=== PATIENT | female | born 1940 | race American Indian/Alaskan Native ===

== ENCOUNTER 2017-07-29 01:25 | Inpatient (IN) | payer MEDICARE, OTHER ==
--- NOTE | 2017-07-29 02:33 | ED PDOC ---
Arrival/HPI - General Chief Complaint: Fever Time Seen by Provider: 07/29/17 02:02 Historian: Patient, [facility] Caveat: Dementia - History of Present Illness Narrative History of Present Illness (Text): 77F, hx of difficulty walking, cognitive decline, communication deficit, non- ambulatory, now sent for fever work-up as persistent fevers, as she has had 102 temp, positive flu, tamiflu started per nurse familia. 07/29/17 02:31 07/29/17 02:51 Past Medical History - Provider Review Nursing Documentation Reviewed: Yes - Travel History Have you recently traveled outside [place] w/in the past 3 mons?: No - Cardiac Hx Cardiac Disorders: Yes Hx Hypertension: Yes - Pulmonary Hx Respiratory Disorders: No - Neurological Hx Neurological Disorder: Yes Hx Dementia: Yes - Renal Hx Renal Disorder: No - Endocrine/Metabolic Hx Endocrine Disorders: No - Hematological/Oncological Hx Blood Disorders: No - Integumentary Hx Dermatological Disorder: No - Musculoskeletal/Rheumatological Hx Musculoskeletal Disorders: Yes Hx Falls: Yes Hx Unsteady Gait: Yes - Gastrointestinal Hx Gastrointestinal Disorders: No - Genitourinary/Gynecological Hx Genitourinary Disorders: No - Psychiatric Hx Psychophysiologic Disorder: No Hx Substance Use: No - Surgical History Hx Joint Replacement: Yes (R hip) Family/Social History - Physician Review Nursing Documentation Reviewed: Yes Family/Social History: Unknown Family HX Smoking Status: Unknown If Ever Smoked Hx Alcohol Use: No Hx Substance Use: No Allergies/Home Meds Allergies/Adverse Reactions: Allergies No Known Allergies Allergy (Unverified 07/29/17 02:26) Home Medications: Home Meds Medication Instructions Recorded Confirmed Acetaminophen [Athenol] 2 tab PO Q6 PRN 07/29/17 07/29/17 Acetaminophen [Non-Aspirin Pain 2 tab PO Q6 PRN 07/29/17 07/29/17 Relief] Ascorbic Acid [Vitamin C] 500 mg PO DAILY 07/29/17 07/29/17 Aspirin [Lo-Dose Aspirin EC] 81 mg PO DAILY 07/29/17 07/29/17 Atorvastatin [Lipitor] 20 mg PO DAILY 07/29/17 07/29/17 Calcium Carbonate/Vitamin D3 1 each PO DAILY 07/29/17 07/29/17 [Calcium 500 + Vit D 200 Caplet] Celecoxib [CeleBREX] 200 mg PO DAILY 07/29/17 07/29/17 Cyanocobalamin (Vitamin B-12) 5,000 mcg PO DAILY 07/29/17 07/29/17 [Vitamin B12] Docusate [Colace] 2 tab PO HS 07/29/17 07/29/17 Famotidine [Pepcid] 20 mg PO BID 07/29/17 07/29/17 Lactulose [Generlac] 20 gm PO DAILY PRN 07/29/17 07/29/17 diltiaZEM [Cardizem] 60 mg PO Q12 07/29/17 07/29/17 Review of Systems - Physician Review All systems were reviewed & negative as marked: Yes - Review of Systems Systems not reviewed;Unavailable: Dementia Constitutional: Fevers Eyes: Normal ENT: Normal Respiratory: Normal Cardiovascular: Normal Physical Exam Vital Signs Reviewed: Yes Vital Signs Temp Pulse Resp BP Pulse Ox 07/29/17 01:30 97.8 F 99 H 18 112/63 96 Temperature: Afebrile Blood Pressure: Normal Pulse: Regular Respiratory Rate: Normal Appearance: Positive for: Well-Appearing, Non-Toxic, Comfortable Pain Distress: None Mental Status: Positive for: other (communication deficit) - Systems Exam Head: Present: Atraumatic, Normocephalic Pupils: Present: PERRL Extroacular Muscles: Present: EOMI Conjunctiva: Present: Normal Ears: Present: Normal Mouth: Present: Moist Mucous Membranes Pharnyx: Present: Normal Nose (External): Present: Atraumatic Nose (Internal): Present: Normal Inspection Neck: Present: Normal Range of Motion Respiratory/Chest: Present: Clear to Auscultation, Good Air Exchange Cardiovascular: Present: Regular Rate and Rhythm Abdomen: No: Tenderness, Distention, Normal Bowel Sounds, Peritoneal Signs, Rebound, Guarding, McBurney's Point Tender, Rovsing's Sign Present, Hernias, Feeding Tubes, Ostomy Tubes, Mass/Organomegaly, Scars, Other Upper Extremity: Present: Normal Inspection Lower Extremity: Present: Normal Inspection Neurological: Present: Motor Func Grossly Intact Skin: Present: Warm, Normal Color Psychiatric: Present: Alert, Other (dementia) Medical Decision Making ED Course and Treatment: 07/29/17 05:05 77F, hx of difficulty walking, cognitive decline, communication deficit, non- ambulatory, now sent for fever work-up as persistent fevers, as she has had 102 temp, positive flu, tamiflu started per nurse familia. d/w with Dr. Marie for pt sent by [facility] for persistent fevers, flu positive. will admit for observation. - Lab Interpretations Lab Results: 07/29/17 02:27 07/29/17 02: Lab Results 07/29/17 03:30: Urine Color yellow, Urine Appearance Clear, Urine pH 6.0, Ur Specific [place] >= 1.030, Urine Protein 100 H, Urine Glucose (UA) Negative, Urine Ketones Negative, Urine Blood Small H, Urine Nitrate Negative, Urine Bilirubin Negative, Urine Urobilinogen 1.0 H, Ur Leukocyte Esterase Negative, Urine RBC 15 - 20, Urine WBC 2 - 5, Ur Epithelial Cells 4 - 5, Urine Bacteria Few 07/29/17 02:: Phenytoin < 3 L 07/29/17 02:: Sodium 142, Chloride 106, Potassium 3.9, Carbon Dioxide 29, Anion Gap 11, BUN 24 H, Creatinine 0.9, Est GFR ( Amer) > 60, Est GFR ( Non-Af Amer) > 60, Random Glucose 187 H, Calcium 9.4, Phosphorus 3.3, Magnesium 2.0, Total Bilirubin 0.7, AST 102 H, ALT 104 H, Alkaline Phosphatase 66, Troponin I 0.03, Total Protein 6.4, Albumin 3.2, Globulin 3.2, Albumin/Globulin Ratio 1.0 L 07/29/17 02:: pO2 71 H, VBG pH 7.44 H, VBG pCO2 46.0, VBG HCO3 31.2 H, VBG Total CO2 32.6 H, VBG O2 Sat (Calc) 97.1 H, VBG Base Excess 6.1 H, VBG Potassium 4.0, Sodium 139.0, Chloride 108.0 H, Glucose 196 H, Lactate 1.0, FiO2 21.0, Venous Blood Potassium 4.0 07/29/17:: PT 16.1 H, INR 1.39 H, APTT 30.9 07/29/17 02:27: WBC 7.0, RBC 3.64, Hgb 10.9 L, Hct 33.1 L, MCV 90.9, MCH 29.9, MCHC 32.9, RDW 13.7, Plt Count 69 L, MPV 12.0 H, Gran % 66.0, Lymph % (Auto) 20.7 L, [place] % (Auto) 13.2 H, Eos % (Auto) 0.0 L, Baso % (Auto) 0.1, Gran # 4.64 , Lymph # (Auto) 1.5, [place] # (Auto) 0.9 H, Eos # (Auto) 0.0, Baso # (Auto) 0.01 07/29/17 02:22: Influenza Typ A,B (EIA) Pos for influenza a H I have reviewed the lab results: Yes - RAD Interpretation Radiology Orders: 07/29/17 02:40 CHEST ONE VIEW [RAD] Stat Cold Working Inspector: ED Physician (CXR mild vascular markings) - EKG Interpretation Interpreted by ED Physician: Yes (NSR) Type: 12 lead EKG - Medication Orders Current Medication Orders: Lactated Ringer's 1,000 ml/ IV (SUPPLIES) 1,000 mls @ 60 mls/hr IV ONCE ONE Stop: 07/29/17 19:05 Last Admin: 07/29/17 03:07 Dose: 60 mls/hr eMAR Start Stop Document 07/29/17 03:07 SS (Rec: 07/29/17 03:07 SS [facility] [id number]) Intravenous Solution Start Date 07/29/17 Start Time 03:07 Discontinued Medications Oseltamivir Phosphate (Tamiflu Cap) 75 mg PO STAT STA PRN Reason: Protocol Stop: 07/29/17 03:52 Last Admin: 07/29/17 04:38 Dose: 75 mg Disposition/Present on Arrival - Present on Arrival Any Indicators Present on Arrival: No History of DVT/PE: No History of Uncontrolled Diabetes: No Urinary Catheter: No History of Decub. Ulcer: No History Surgical Site Infection Following: None - Disposition Have Diagnosis and Disposition been Completed?: Yes Diagnosis: Influenza Disposition: HOSPITALIZED Disposition Time: 05:06 Isolation: Airborne Patient Plan: Admission Patient Problems: Current Active Problems Problem Status Onset Influenza Acute Condition: IMPROVED Referrals: Davon Marie MD [Primary Care Provider] - Follow up with primary Forms: everbill (Persian)
[2017-07-29 02:57] LABS: VENOUS BLOOD GAS BASE EXCESS 6.1 mmol/L (0.0-2.0); VENOUS BLOOD GAS PO2 71 mm/Hg (30-55); VENOUS BLOOD PH 7.44 (7.32-7.43)
[2017-07-29 03:00] LABS: HEMOGLOBIN 10.9 g/dL (12.0-16.0); MEAN CELL VOLUME 90.9 fl (80.0-105.0); MEAN CORPUSCULAR HEMOGLOBIN 29.9 pg (25.0-35.0); MEAN CORPUSCULAR HGB CONC 32.9 g/dl (31.0-37.0); RBC 3.64 10^6/uL (3.5-6.1); RED CELL DISTRIBUTION WIDTH 13.7 % (11.5-14.5)
[2017-07-29 03:01] LABS: BASO # 0.01 K/mm3 (0.0-2.0); BASO % 0.1 % (0.0-3.0); GRAN # 4.64 (1.4-6.5); LYMPH # 1.5 (1.2-3.4); LYMPH % 20.7 % (22.0-35.0); MONO # 0.9 (0.1-0.6); MONO % 13.2 % (1.0-6.0)
[2017-07-29 03:10] LABS: ALBUMIN 3.2 g/dL (3.0-4.8); ALT/SGPT 104 U/L (7-56); AST/SGOT 102 U/L (14-36); BLOOD UREA NITROGEN 24 mg/dL (7-21); CALCIUM 9.4 mg/dL (8.4-10.5); GFR AFRICAN-AMERICAN > 60; GFR NON-AFRICAN AMERICAN > 60; INR 1.39 (0.93-1.08); PARTIAL THROMBOPLASTIN TIME 30.9 Seconds (25.1-36.5); PROTHROMBIN TIME 16.1 SECONDS (9.4-12.5)
[2017-07-29 03:17] LABS: TROPONIN I 0.03 ng/mL
[2017-07-29 03:47] LABS: URINE BILIRUBIN NEGATIVE (NEGATIVE); URINE BLOOD SMALL (NEGATIVE); URINE GLUCOSE (UA) NEGATIVE (NEGATIVE); URINE LEUKOCYTE ESTERASE NEGATIVE Leu/uL (NEGATIVE); URINE NITRATE NEGATIVE (NEGATIVE); URINE PROTEIN 100 mg/dL (<30 mg/dL)
[2017-07-29 03:54] LABS: URINE APPEARANCE CLEAR (CLEAR)
[2017-07-29 03:59] LABS: URINE BACTERIA FEW (NEG); URINE RBC 15 - 20 /hpf (0-2)
--- NOTE | 2017-07-29 05:42 | RAD ---
EXAM: XR Chest, 1 View CLINICAL HISTORY: 77 years old, female; Pain; Chest pain; Additional info: 77f, fever work-up TECHNIQUE: Frontal view of the chest. COMPARISON: No relevant prior studies available. FINDINGS: Limitations: Rotation - mild. Lungs: No consolidation. Pleural space: No definite pleural effusion. No definite pneumothorax. Heart: No cardiomegaly. Mediastinum: Unremarkable. Bones/joints: No acute fracture. Soft tissues: Apparent skin folds overlying RIGHT hemithorax. IMPRESSION: 1. No definite acute cardiopulmonary disease. 2. Incidental/non-acute findings are described above.
--- NOTE | 2017-07-29 16:41 | CARD ---
APPROVED REPORT EKG Measurement Heart [id number] <Conclusion> Normal sinus rhythm Inferior infarct, age undetermined Abnormal ECG
--- NOTE | 2017-07-30 02:14 | HP ---
HISTORY OF PRESENT ILLNESS: Patient is 77-year-old who is a resident of [facility]. She has been having high-grade fever for 2 days. She was positive for flu. She has been started on Tamiflu, but according to the nurse, she was increasingly lethargic, is having upper respiratory symptoms and her fever was not breaking. So, she had 101 temperature in the middle of night. I directed them to bring her to emergency room. Patient has been having fever for the last 2 to 3 days, runny, stuffy nose with mild cough and congestion. There is no history of nausea or vomiting. No abdominal pain. No rectal bleeding, no hemoptysis, no hematemesis. PAST MEDICAL HISTORY: Significant for: 1. Dementia. 2. History of unstable gait and disability walking. States she recently had a fall and she has right hip fracture. For that she had open reduction internal fixation done in [facility]. Since then, when she came to rehab in [facility], she became a permanent resident there. 3. Hyperlipidemia. 4. Hypertension. 5. Generalized osteoarthritis ALLERGIES: SHE IS NOT ALLERGIC TO ANY MEDICATIONS. MEDICATIONS: In the custodial, she is on lactulose, atorvastatin, diltiazem 60 mg q.12, Pepcid 20 mg twice a day, Colace and Celebrex. SOCIAL HISTORY: There is no history of smoking in the past or alcohol use. She is a long-term resident of [facility]. PHYSICAL EXAMINATION GENERAL: She is confused and disoriented, but arousable. VITAL SIGNS: Temperature of 99. In the ER, her temperature was 101.9. Pulse 74, respirations 16, blood pressure 100/59. LUNGS: Bilateral fair air flow. No rhonchi or crackle. HEART: S1, S2, audible. ABDOMEN: Soft, nontender. No rebound. No guarding. NEUROLOGIC: She is sleepy but arousable. LABORATORY DATA: WBC 7.0, hemoglobin 10.9, hematocrit 33.1, platelets of 69, PT 16.1, INR 1.39. Sodium 142, potassium 3.9, chloride 106, CO2 of 29, BUN 24, creatinine 0.9, blood sugar of 187. Urinalysis shows small blood. Flu test is positive. ASSESSMENT: 1. Viral syndrome. 2. Dementia. 3. Hypertension. 4. Hyperlipidemia. PALN: Patient is currently on Tamiflu. We will continue that. We will resume her usual medications and start her on antihistamine and antitussive. Davon Marie MD
[2017-07-30] MEDS: Sodium Chloride 0.9% 1,000 ML IV SCH (10:17)
[2017-07-30 16:45] LABS: BASO # 0.01 K/mm3 (0.0-2.0); BASO % 0.3 % (0.0-3.0); EOS % 0.3 % (1.5-5.0); GRAN # 1.5 (1.4-6.5); GRAN % 46.3 % (50.0-68.0); HEMOGLOBIN 9.6 g/dL (12.0-16.0); LYMPH # 1.5 (1.2-3.4); MEAN CELL VOLUME 93.2 fl (80.0-105.0); MEAN CORPUSCULAR HEMOGLOBIN 29.6 pg (25.0-35.0); MEAN CORPUSCULAR HGB CONC 31.8 g/dl (31.0-37.0); MEAN PLATELET VOLUME 11.1 fl (7.0-11.0); MONO # 0.2 (0.1-0.6); MONO % 7.1 % (1.0-6.0); RBC 3.24 10^6/uL (3.5-6.1); RED CELL DISTRIBUTION WIDTH 13.5 % (11.5-14.5); WHITE BLOOD COUNT 3.2 10^3/ul (4.5-11.0)
[2017-07-31 07:56] LABS: BASO # 0.01 K/mm3 (0.0-2.0); BASO % 0.3 % (0.0-3.0); EOS % 0.3 % (1.5-5.0); GRAN # 1.04 (1.4-6.5); HEMOGLOBIN 9.7 g/dL (12.0-16.0); LYMPH # 1.7 (1.2-3.4); LYMPH % 55.6 % (22.0-35.0); MEAN CELL VOLUME 93.5 fl (80.0-105.0); MEAN CORPUSCULAR HEMOGLOBIN 29.8 pg (25.0-35.0); MEAN CORPUSCULAR HGB CONC 31.9 g/dl (31.0-37.0); MEAN PLATELET VOLUME 12.2 fl (7.0-11.0); MONO # 0.3 (0.1-0.6); MONO % 8.8 % (1.0-6.0); RBC 3.25 10^6/uL (3.5-6.1); RED CELL DISTRIBUTION WIDTH 13.3 % (11.5-14.5)
--- NOTE | 2017-07-31 08:00 | CON ---
DATE: 07/30/2017 This patient was seen and evaluated earlier today. Discussed with the nursing staff. HISTORY OF PRESENT ILLNESS: This 77-year-old residential resident was transferred to [facility] with a history of fever, positive for flu and the patient was on Tamiflu and the patient was found to be lethargic. The patient last night had a large amount of bowel movement, noticed bright red blood per rectum. GI consult was requested to evaluate this. No vomiting. OTHER PAST MEDICAL HISTORY: Significant as above. 1. Dementia. 2. Open reduction and internal fixation of the right hip, surgery in [facility]. 3. Dyslipidemia. 4. Hypertension. 5. Osteoarthritis. 6. The patient does have some abdominal scar and the details of the surgery is not clear. The patient's history is mainly from the chart and residential records. ALLERGIES: SHE HAS NO KNOWN DRUG ALLERGIES. FAMILY HISTORY: Limited. As per chart, none. SOCIAL HISTORY: Denies smoking or alcohol presently. PHYSICAL EXAMINATION: GENERAL: The patient is lying on the bed, not in acute distress. VITAL SIGNS: Temperature is 99, blood pressure 140/76, respirations 18, O2 saturation 98%. HEENT: Atraumatic, anicteric. NECK: Supple. HEART: S1 and S2 heard. LUNGS: Bilateral air entry present. ABDOMEN: Soft. There is a midline scar noticed. EXTREMITIES: No cyanosis. No clubbing. NEUROLOGIC: The patient is awake, not communicative verbally. LABORATORY DATA: Hemoglobin 10.9, hematocrit 33.1, WBC 7.0, platelets 69. Chemistry shows AST 102, ALT 104, total bilirubin normal, albumin 3.2. IMPRESSION: This 77-year-old patient admitted with flu, fever, became lethargic. In the hospital, she had a large bowel movement, bright red blood per rectum was noticed. Rectal examination revealed a gross amount of blood in the finger but no obvious masses felt. The etiology for gastrointestinal bleeding is unclear. The differential diagnosis include anal fissure, hemorrhoid, diverticulosis, arteriovenous malformation, and colonic neoplasia and upper gastrointestinal source also should be considered. The patient has a history of arthritis and has been on Celebrex at the residential. The patient has a history of constipation, she has been on lactulose. The patient has mildly elevated transaminases and thrombocytopenia, rule out chronic liver disease, rule out cirrhosis. The patient does have also midline abdominal scar, etiology is unclear, no obvious masses are palpable. Other comorbidities include hypertension, dyslipidemia. Would recommend: 1. Repeat CBC and type and cross match, close follow up of the hemoglobin and hematocrit. 2. The patient has thrombocytopenia, would like to start the patient empirically on low-dose PPI therapy with close monitoring of the platelet. 3. Manual platelet count. 4. Serum ammonia level, hepatitis profile. 5. Get a CT scan of the abdomen and pelvis to further evaluate. The patient was on famotidine at home twice daily. Thank you very much for allowing us to participate in the care of the patient. We will continue to closely follow up her care and suggest further management based on the clinical course. Michael Rust MD
[2017-07-31] MEDS ORDERED: Barium Sulfate Susp 2.1% w/v, 2.0% w/w 450 mL Bottle PO ONE (08:31)
[2017-07-31 09:03] LABS: ALBUMIN 2.8 g/dL (3.0-4.8); ALT/SGPT 89 U/L (7-56); AST/SGOT 112 U/L (14-36); BLOOD UREA NITROGEN 19 mg/dL (7-21); GFR AFRICAN-AMERICAN > 60; GFR NON-AFRICAN AMERICAN > 60; MAGNESIUM 1.8 mg/dL (1.7-2.2)
--- NOTE | 2017-07-31 09:49 | PN ---
DATE: 07/30/2017 SUBJECTIVE: Patient opens eyes, but does not communicate much. According to the nurses, this is basically her baseline. PHYSICAL EXAMINATION: VITAL SIGNS: Temperature is 99, pulse is 79, blood pressure 140/76, and respirations 18. GENERAL: The patient is lying in bed, flat, comfortable. HEENT: No oral lesion. Anicteric sclerae. Moist mucosa. NECK: No JVD, adenopathy, or thyromegaly. CARDIOVASCULAR: S1 and S2, regular. No murmurs, rubs, or gallops. LUNGS: Clear to auscultation bilaterally. No wheeze, rales, or rhonchi. ABDOMEN: Bowel sounds are positive, soft, nontender and nondistended. EXTREMITIES: no cyanosis, clubbing or edema. LABORATORY DATA: White count is 7.0, hemoglobin is 10.9. Creatinine is 0.9. Platelet count is 69. ASSESSMENT: 1. Viral syndrome secondary to influenza. 2. Dementia, probable Alzheimer's type. 3. Dyslipidemia. 4. Hypertension. 5. Osteoarthritis. 6. Thrombocytopenia. 7. Anemia. 8. Transaminitis. 9. Rectal bleeding. PLAN: The patient is currently comfortable. She is on isolation. The patient is on Cardizem. She is receiving Tamiflu for the flu. Patient is on Lipitor for dyslipidemia. She is on Tylenol as needed. She is on Colace for constipation. I will get GI evaluation because of the patient's bleeding according to the nursing staff. Patient is going to get assistance with eating. The patient's hemoglobin is 10.9, currently stable. We will repeat the patient's blood work tomorrow. She is going to be on IV fluids as she is not eating or drinking much. I will also add magnesium and phosphorous levels. Thomas Douglas MD
--- NOTE | 2017-07-31 13:45 | CT ---
PROCEDURE: CT Abdomen and Pelvis with Oral contrast. HISTORY: gi bleeding r/o colonic lesion r/o colitis COMPARISON: None. TECHNIQUE: Contiguous axial images of the abdomen and pelvis. Oral contrast was administered. No IV contrast given. Coronal and Sagittal reformats generated. Radiation dose: Total exam DLP = This CT exam was performed using one or more of the following dose reduction techniques: Automated exposure control, adjustment of the mA and/or kV according to patient size, and/or use of iterative reconstruction technique. FINDINGS: LOWER THORAX: No evidence of acute pathology at the lung bases. Trace bilateral pleural effusion and bibasilar atelectasis noted. LIVER: Unremarkable. No gross lesion or ductal dilatation. GALLBLADDER AND BILE DUCTS: Patient status post cholecystectomy PANCREAS: Unremarkable. No mass. No ductal dilatation. SPLEEN: Unremarkable. No splenomegaly. ADRENALS: Unremarkable. KIDNEYS AND URETERS: Unremarkable. No stone or hydronephrosis. BLADDER: The urinary bladder is not fully distended. The assessment of the pelvic structure is limited due to large streak artifact from the right hip hardware. REPRODUCTIVE: The uterus and adnexa are not clearly visualized in this study. APPENDIX: There is no evidence of appendicitis. BOWEL: No evidence of obstructing mass lesion in the large bowel. No CT evidence of colitis. There is no evidence of bowel obstruction. Mild diffuse gastric wall thickening. Please correlate clinically for gastritis. Mild diffuse small bowel wall thickening also may represent enteritis. PERITONEUM: Unremarkable. No fluid collection. No free air. LYMPH NODES: Unremarkable. No enlarged lymph nodes. VASCULATURE: Unremarkable. No aortic aneurysm. BONES: No fracture or destructive lesion. Diffuse osteopenia is noted. No evidence of destructive bony lesion. OTHER FINDINGS: None. IMPRESSION: No CT evidence of obstructing mass in the large bowel. No evidence of colitis. Mild diffuse gastric and small bowel wall thickening suspicious for gastroenteritis. No evidence of acute pathology otherwise in the abdomen and pelvis in this study without IV contrast administration.
[2017-07-31] MEDS ORDERED: Magnesium Citrate Oral SOL (300 ml) PO ONE (14:43)
[2017-07-31 16:53] LABS: HEPATITIS B SURFACE AG Negative (NEGATIVE)
[2017-07-31 16:59] LABS: HEPATITIS A IGM NEGATIVE (NEGATIVE); HEPATITIS B CORE AB NEGATIVE (NEGATIVE)
--- NOTE | 2017-07-31 17:52 | CP.PCM.CON ---
History of Present Illness - History of Present Illness History of Present Illness: 77 year old female with PMH of HTN, dementia, S/P right hip replacement was brought in to [facility] because of fevers and weakness. She has occasional cough but not productive, no vomiting, no convulsions, no diarrhea, no vomiting, no loss of consciousness. There is note of blood in the stool and work up is being done for this. In the ED, rapid flu test was positive and Infectious Diseases consult is requested to further evaluate and manage. Review of Systems - Review of Systems All systems: reviewed and no additional remarkable complaints except (as per HPI ) Past Patient History - Past Social History Smoking Status: Never Smoked - CARDIAC Hx Hypertension: Yes - PULMONARY Hx Respiratory Disorders: No - NEUROLOGICAL Hx Neurological Disorder: Yes Hx Dementia: Yes - RENAL Hx Chronic Kidney Disease: No - ENDOCRINE/METABOLIC Hx Endocrine Disorders: No - HEMATOLOGICAL/ONCOLOGICAL Hx Blood Disorders: No - INTEGUMENTARY Hx Dermatological Problems: No - MUSCULOSKELETAL/RHEUMATOLOGICAL Hx Musculoskeletal Disorders: Yes Hx Falls: Yes Hx Unsteady Gait: Yes - GASTROINTESTINAL Hx Gastrointestinal Disorders: No - GENITOURINARY/GYNECOLOGICAL Hx Genitourinary Disorders: No Hx Incontinence: Yes - PSYCHIATRIC Hx Psychophysiologic Disorder: No - SURGICAL HISTORY Hx Joint Replacement: Yes (R hip) Meds Allergies/Adverse Reactions: Allergies Allergy/AdvReac Type Severity Reaction Status Date / Time No Known Allergies Allergy Unverified 07/29/17 02:26 - Medications Medications: Current Medications Acetaminophen (Tylenol 325mg Tab) 650 mg PO Q6 PRN PRN Reason: Temperature Last Admin: 07/29/17 10:53 Dose: 650 mg Aspirin (Ecotrin) 81 mg PO DAILY [facility] Last Admin: 07/31/17 09:28 Dose: 81 mg Atorvastatin Calcium (Lipitor) 20 mg PO DAILY [facility] Last Admin: 07/31/17 09:28 Dose: 20 mg Diltiazem HCl (Cardizem) 60 mg PO Q12 [facility] Last Admin: 07/31/17 09:28 Dose: 60 mg Docusate Sodium (Colace) 200 mg PO HS [facility] Last Admin: 07/30/17 21:55 Dose: 200 mg Famotidine (Pepcid) 20 mg PO BID [facility] Last Admin: 07/31/17 09:28 Dose: 20 mg Sodium Chloride (Sodium Chloride 0.9%) 1,000 mls @ 50 mls/hr IV .Q20H [facility] Last Admin: 07/30/17 10:17 Dose: 50 mls/hr Loratadine (Claritin) 10 mg PO DAILY [facility] Last Admin: 07/31/17 09:28 Dose: 10 mg Oseltamivir Phosphate (Tamiflu Cap) 75 mg PO BID [facility] PRN Reason: Protocol Stop: 08/03/17 10:16 Last Admin: 07/31/17 09:28 Dose: 75 mg Physical Exam - Constitutional Appears: Chronically Ill - Head Exam Head Exam: NORMAL INSPECTION - Neck Exam Neck exam: Negative for: Meningismus - Respiratory Exam Respiratory Exam: Decreased Breath Sounds - Cardiovascular Exam Cardiovascular Exam: +S1, +S2 - GI/Abdominal Exam GI & Abdominal Exam: Soft. absent: Tenderness Results - Vital Signs Recent Vital Signs: Last Vital Signs Temp 97.8 F 07/31/17 07:30 Pulse 76 07/31/17 09:28 Resp 20 07/31/17 07:30 BP 142/85 07/31/17 09:28 Pulse Ox 100 07/31/17 07:30 - Labs Result Diagrams: 07/31/17 07:40 07/31/17 07:40 Labs: Laboratory Results - last 24 hr 07/30/17 07/30/17 07/30/17 16:36 16:36 17:05 WBC 3.2 L D RBC 3.24 L Hgb 9.6 L Hct 30.2 L MCV 93.2 MCH 29.6 MCHC 31.8 RDW 13.5 Plt Count 73 L MPV 11.1 H Gran % 46.3 L Lymph % (Auto) 46.0 H [place] % (Auto) 7.1 H Eos % (Auto) 0.3 L Baso % (Auto) 0.3 Gran # 1.50 Lymph # (Auto) 1.5 [place] # (Auto) 0.2 Eos # (Auto) 0.0 Baso # (Auto) 0.01 Sodium Potassium Chloride Carbon Dioxide Anion Gap BUN Creatinine Est GFR ( Amer) Est GFR (Non-Af Amer) Random Glucose Calcium Phosphorus Magnesium Total Bilirubin AST ALT Alkaline Phosphatase Ammonia Total Protein Albumin Globulin Albumin/Globulin Ratio Blood Type O POSITIVE Blood Type Confirm O POSITIVE Antibody Screen Positive Antibody Identification Non Specific Antibody Crossmatch See Detail BBK History Checked Patient has bt 07/31/17 07/31/17 07/31/17 07:40 07:40 09:30 WBC 3.0 L RBC 3.25 L Hgb 9.7 L Hct 30.4 L MCV 93.5 MCH 29.8 MCHC 31.9 RDW 13.3 Plt Count 89 L MPV 12.2 H Gran % 35.0 L Lymph % (Auto) 55.6 H [place] % (Auto) 8.8 H Eos % (Auto) 0.3 L Baso % (Auto) 0.3 Gran # 1.04 L Lymph # (Auto) 1.7 [place] # (Auto) 0.3 Eos # (Auto) 0.0 Baso # (Auto) 0.01 Sodium 146 Potassium 4.0 Chloride 108 H Carbon Dioxide 29 Anion Gap 14 BUN 19 Creatinine 0.7 Est GFR ( Amer) > 60 Est GFR (Non-Af Amer) > 60 Random Glucose 81 Calcium 9.0 Phosphorus 3.6 Magnesium 1.8 Total Bilirubin 0.4 AST 112 H ALT 89 H Alkaline Phosphatase 54 Ammonia 27 Total Protein 5.6 L Albumin 2.8 L Globulin 2.9 Albumin/Globulin Ratio 1.0 L Blood Type Blood Type Confirm Antibody Screen Antibody Identification Crossmatch BBK History Checked Assessment & Plan - Assessment and Plan (Free Text) Plan: Assessment Systemic viral illness with Influenza rectal bleeding, etiology to be determined HTN dementia S/P right hip replacement Plan Continue Tamiflu to complete 5 days of therapy follow up GI work up for the rectal bleeding
[2017-07-31 18:18] LABS: HEPATITIS C ANTIBODY REACTIVE (NEGATIVE)
--- NOTE | 2017-07-31 23:34 | PN ---
DATE:07/31/2017 SUBJECTIVE: This patient was seen and evaluated earlier today. Patient is comfortable, tolerating the CT scan preparation.The patient was admitted with flu and lethargy. While in the hospital, patient had a large bowel movement, followed by the bright red blood per rectum. I did a rectal examination yesterday and there was large amount of blood present. Patient remains hemodynamically stable. Hemoglobin is stable, only slight drop in hemoglobin noticed, stable. OBJECTIVE: GENERAL: On examination, not in acute distress VITAL SIGNS: Temperature is 97.8, pulse 76, blood pressure 142/85, respirations 18. HEENT: Atraumatic and anicteric. NECK: Supple. HEART: S1 and S2 heard. LUNGS: Bilateral air entry present. ABDOMEN: Soft. EXTREMITIES: No cyanosis, no clubbing. LABORATORY DATA: Hemoglobin is 8.7, hematocrit is 30.4, WBC 3.0, platelets 89. BUN 19, creatinine 0.7. IMPRESSION: This is a 77-year-old patient, jail resident, admitted with flu and had rectal bleeding while she was in the hospital. Hemoglobin is stable, slight drop in her hemoglobin is noticed, hemoglobin is 9.7, it is stable. Patient had was about to be [facility] jail, had another episode of bloody bowel movement with clots. The transfer was canceled. Patient is scheduled for a flexible sigmoidoscopy tomorrow. Patient had a CT scan done, which was reviewed. No large bleeding noticed. No obvious colitis noticed. We will be placing her for a flexible sigmoidoscopy. We will check with the family. Thank you very much for allowing us to participate in the care of the patient. Michael Rust MD YONNY
--- NOTE | 2017-08-01 00:20 | PN ---
DATE: SUBJECTIVE: Patient is a 77-year-old, seen and examined, does not seem to be in any distress. She is afebrile, was noted to have rectal bleeding last night and some blood staining of her diaper this morning also. Otherwise no nausea, vomiting or diarrhea. No fever, no chills. OBJECTIVE: VITAL SIGNS: She is afebrile, pulse 76, respirations 20, blood pressure 142/85. LUNGS: Bilateral fair airflow. No rhonchi or crackles. HEART: S1 and S2 audible. ABDOMEN: Soft, nontender. No rebound. No guarding. NEUROLOGIC: Patient is awake and alert, but not communicative. She has advanced dementia. LABORATORY DATA: WBC 3.0, hemoglobin 9.7, hematocrit 30.4, platelets of 89. Chemistry; sodium 146, potassium 4.0, chloride 108, CO2 of 29, BUN 19, creatinine 0.7, blood sugar of 81. Procalcitonin 4.40. She is positive for influenza A. ASSESSMENT: 1. Viral syndrome with positive flu. 2. Rectal bleeding, etiology unclear yet. 3. Dementia. 4. Hypertension. 5. Hyperlipidemia. PLAN: We will continue patient on IV fluids. She is on liquid diet. She is scheduled to have flexible sigmoidoscopy tomorrow. I spoke to Dr. Rust earlier. Plan was to discharge today until she recovers from flu and we will do colonoscopy later on; but patient started to have rectal bleeding with clots, so discharge is on hold and plan for flexible sigmoidoscopy in a.m. Davon Marie MD
[2017-08-01 07:26] LABS: HEMOGLOBIN 10.1 g/dL (12.0-16.0); MEAN CORPUSCULAR HEMOGLOBIN 29.8 pg (25.0-35.0); MEAN CORPUSCULAR HGB CONC 32.4 g/dl (31.0-37.0); MEAN PLATELET VOLUME 11.5 fl (7.0-11.0); RBC 3.39 10^6/uL (3.5-6.1); RED CELL DISTRIBUTION WIDTH 13.1 % (11.5-14.5); WHITE BLOOD COUNT 3.6 10^3/ul (4.5-11.0)
[2017-08-01 08:08] VITALS: RESP 20
[2017-08-01] MEDS ORDERED: Lidocaine 2% Jelly (30 ml) ONE (17:43)
--- NOTE | 2017-08-01 18:47 | PN ---
DATE: SUBJECTIVE: The patient is 77 years old, seen and examined, lying in bed, seems to be comfortable, looks pale, still has rectal bleeding. According to nurse, she has couple of clots in her diaper. PHYSICAL EXAMINATION: VITAL SIGNS: She is afebrile, pulse 72, respiration 20, blood pressure 148/80. LUNGS: Bilateral good air flow. No rhonchi or crackles. HEART: S1 and S2 audible. ABDOMEN: Soft, nontender, no rebound, no guarding. NEUROLOGICAL: She is awake and alert, but confused, disoriented. LABORATORY DATA: WBC 3.6, hemoglobin 10, hematocrit 31, platelets 85. Chemistry sodium 146, potassium 4.0, chloride 108, CO2 of 99, BUN 19, creatinine 0.7, blood sugar of 81. LFTs are within normal limits, procalcitonin 4.40. Her flu test is positive. She had CT scan of abdomen and pelvis done that shows no evidence of colitis, mild issues gastric and small bowel wall thickening, suspicious for gastroenteritis. ASSESSMENT AND PLAN: 1. Rectal bleeding, etiology unclear. 2. Viral syndrome. 3. Dementia. 4. Hypertension. 5. Anemia. PLAN: Patient is going for flex sig today. I will continue her the usual medication, we will start her on IV fluid and further plan will be after flex sig report. Davon Marie MD
--- NOTE | 2017-08-02 04:06 | PN ---
DATE: SUBJECTIVE: The patient is seen in bed, in no acute distress, nontoxic. PHYSICAL EXAMINATION: VITAL SIGNS: On exam, temperature is 98, blood pressure is 140/80, respiratory rate 20, heart rate of 72. HEENT: Unremarkable. NECK: Supple. LUNGS: Have decreased breath sounds. HEART: Normal S1 and S2. ABDOMEN: Soft. LABORATORY DATA: Laboratory examination reveals a white count of 3.6, hemoglobin of 10, platelets of 85. Chemistries reveals a BUN of 19, creatinine of 0.7, and procalcitonin is 4.4. Urinalysis is noted, and serology for influenza is positive. Microbiology reveals the blood and urine cultures are negative. Review of orders reveals the patient to be on Tamiflu. ASSESSMENT AND PLAN: This is a 77-year-old female with hypertension, dementia, status post right hip replacement, and with sepsis with influenza, rectal bleeding, dementia. On Tamiflu, would complete 5 days. Gastrointestinal workup as per GI. Israel Terry MD
[2017-08-02 08:07] VITALS: BP 132/77; PULSE 79; TEMP 99.6; O2SAT 97
[2017-08-02 09:40] LABS: HEMOGLOBIN 9.6 g/dL (12.0-16.0); MEAN CELL VOLUME 90.9 fl (80.0-105.0); MEAN CORPUSCULAR HEMOGLOBIN 29.3 pg (25.0-35.0); MEAN CORPUSCULAR HGB CONC 32.2 g/dl (31.0-37.0); MEAN PLATELET VOLUME 11.5 fl (7.0-11.0); RBC 3.28 10^6/uL (3.5-6.1); RED CELL DISTRIBUTION WIDTH 13.3 % (11.5-14.5); WHITE BLOOD COUNT 6.5 10^3/ul (4.5-11.0)
[2017-08-02 09:47] LABS: BLOOD UREA NITROGEN 16 mg/dL (7-21); CALCIUM 9.2 mg/dL (8.4-10.5); GFR AFRICAN-AMERICAN > 60; GFR NON-AFRICAN AMERICAN > 60
--- NOTE | 2017-08-02 13:06 | CP.PCM.PN ---
<Meg Ham - Last Filed: 08/02/17 16:56> Subjective - Date & Time of Evaluation Date of Evaluation: 08/02/17 Time of Evaluation: 09:50 - Subjective Subjective: Seen and examined at the bedside earlier today, chart reviewed. No reports of further bleeding per rectum. 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 No reports of nausea, vomiting, or abdominal pain. Patient is awake and alert but nonverbal. Objective - Vital Signs/Intake and Output Vital Signs (last 24 hours): Temp Pulse Resp BP Pulse Ox 99.6 F 79 20 132/77 97 08/02/17 07:30 08/02/17 10:05 08/02/17 07:30 08/02/17 10:05 08/02/17 07:30 Intake and Output: 08/02/17 08/02/17 06:59 18:59 Intake Total 0 Balance 0 - Medications Medications: Current Medications Acetaminophen (Tylenol 325mg Tab) 650 mg PO Q6 PRN PRN Reason: Temperature Last Admin: 07/29/17 10:53 Dose: 650 mg Aspirin (Ecotrin) 81 mg PO DAILY [facility] Last Admin: 08/02/17 10:05 Dose: 81 mg Atorvastatin Calcium (Lipitor) 20 mg PO DAILY [facility] Last Admin: 08/02/17 10:05 Dose: 20 mg Diltiazem HCl (Cardizem) 60 mg PO Q12 [facility] Last Admin: 08/02/17 10:05 Dose: 60 mg Docusate Sodium (Colace) 200 mg PO HS [facility] Last Admin: 08/01/17 22:05 Dose: 200 mg Famotidine (Pepcid) 20 mg PO BID [facility] Last Admin: 08/02/17 10:06 Dose: 20 mg Sodium Chloride (Sodium Chloride 0.9%) 1,000 mls @ 50 mls/hr IV .Q20H [facility] Last Admin: 07/30/17 10:17 Dose: 50 mls/hr Loratadine (Claritin) 10 mg PO DAILY [facility] Last Admin: 08/02/17 10:05 Dose: 10 mg Oseltamivir Phosphate (Tamiflu Cap) 75 mg PO BID [facility] PRN Reason: Protocol Stop: 08/03/17 10:16 Last Admin: 08/02/17 10:06 Dose: 75 mg - Labs Labs: 08/02/17 09:00 08/02/17 09:00 PT 16.1 SECONDS (9.4-12.5) H 07/29/17 02:27 INR 1.39 (0.93-1.08) H 07/29/17 02:27 APTT 30.9 Seconds (25.1-36.5) 07/29/17 02:27 - Constitutional Appears: No Acute Distress - Eye Exam Eye Exam: Normal appearance. absent: Scleral icterus - ENT Exam ENT Exam: Mucous Membranes Moist - Respiratory Exam Respiratory Exam: NORMAL BREATHING PATTERN. absent: Respiratory Distress - Cardiovascular Exam Cardiovascular Exam: +S1, +S2 - GI/Abdominal Exam GI & Abdominal Exam: Soft, Normal Bowel Sounds. absent: Guarding, Tenderness, Rebound - Extremities Exam Extremities Exam: absent: Pedal Edema - Neurological Exam Neurological Exam: Alert, Awake - Skin Skin Exam: Dry, Warm Assessment and Plan - Assessment and Plan (Free Text) Assessment: Assessment: Influenza Status post GI bleed, had flexible sigmoidoscopy found to have a ?vascular polypoid lesion vs Deulafoy lesion status post Hemoclip 2 Dementia Anemia Hypertension Plan: Monitor H&H and for further GI bleed On stool softener On Tamiflu Continue Pepcid On clear liquids, advance diet [facility] altered spoke to Noy Heredia :[phone], regarding GI status and findings on flexsig surgical evaluation Seen and discussed with Dr. Rust. <Michael Rust V - Last Filed: 08/02/17 23:15> Objective - Vital Signs/Intake and Output Vital Signs (last 24 hours): Temp Pulse Resp BP Pulse Ox 99.6 F 79 20 132/77 97 08/02/17 07:30 08/02/17 10:05 08/02/17 07:30 08/02/17 10:05 08/02/17 07:30 Intake and Output: 08/02/17 08/03/17 18:59 06:59 Intake Total 240 Balance 240 - Labs Labs: 08/02/17 09:00 08/02/17 09:00 PT 16.1 SECONDS (9.4-12.5) H 07/29/17 02:27 INR 1.39 (0.93-1.08) H 07/29/17 02:27 APTT 30.9 Seconds (25.1-36.5) 07/29/17 02:27 Attending/Attestation - Attestation I have personally seen and examined this patient.: Yes I have fully participated in the care of the patient.: Yes I have reviewed all pertinent clinical information, including history, physical exam and plan: Yes Notes (Text): This is an addendum to GI progress report dictated by Meg Ham APN.The patient was seen and examined earlier. Medical records, lab studies, imagings were reviewed. Last 24 hours events reviewed. Agreed with the above treatment plan as outlined in Meg Ham APN's notes the with the addition of the following 08/02/17 23:15
--- NOTE | 2017-08-02 15:33 | CP.PCM.CON ---
History of Present Illness - History of Present Illness History of Present Illness: General surgery consult note for Dr. Samuel Reason for consult: Cancer workup HPI: 77 year old female with past medical history of HTN, dementia, S/P right hip replacement. 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 At this time , no further bleeding per rectum, we were consulted to evaluate malignancy. Past Surgical History: R hip replacement Past Medical History: HTN, Dementia Allergies: NKDA Social History: Patient denies smoking, alcohol, illicits Family History: Non-contributory Medications: Reviewed, see MAR Review of Systems: 12 point ROS unobtainable 07/21 patient status Past Patient History - Past Social History Smoking Status: Never Smoked - CARDIAC Hx Hypertension: Yes - PULMONARY Hx Respiratory Disorders: No - NEUROLOGICAL Hx Neurological Disorder: Yes Hx Dementia: Yes - RENAL Hx Chronic Kidney Disease: No - ENDOCRINE/METABOLIC Hx Endocrine Disorders: No - HEMATOLOGICAL/ONCOLOGICAL Hx Blood Disorders: No - INTEGUMENTARY Hx Dermatological Problems: No - MUSCULOSKELETAL/RHEUMATOLOGICAL Hx Musculoskeletal Disorders: Yes Hx Falls: Yes Hx Unsteady Gait: Yes - GASTROINTESTINAL Hx Gastrointestinal Disorders: No - GENITOURINARY/GYNECOLOGICAL Hx Genitourinary Disorders: No Hx Incontinence: Yes - PSYCHIATRIC Hx Psychophysiologic Disorder: No - SURGICAL HISTORY Hx Joint Replacement: Yes (R hip) Meds Home Medications: Home Medication List Medication Instructions Recorded Confirmed Type Acetaminophen [Tylenol 325mg tab] 650 mg PO Q6 PRN tab 08/02/17 Rx Aspirin [Ecotrin] 81 mg PO DAILY tabec 08/02/17 Rx Atorvastatin [Lipitor] 20 mg PO DAILY tab 08/02/17 Rx Docusate [Colace] 200 mg PO HS cap 08/02/17 Rx Famotidine [Pepcid] 20 mg PO BID tab 08/02/17 Rx Loratadine [Claritin] 10 mg PO DAILY tab 08/02/17 Rx Oseltamivir [Tamiflu Cap] 75 mg PO BID cap 08/02/17 Rx diltiaZEM [Cardizem] 60 mg PO Q12 tab 08/02/17 Rx Allergies/Adverse Reactions: Allergies Allergy/AdvReac Type Severity Reaction Status Date / Time No Known Allergies Allergy Unverified 07/29/17 02:26 - Medications Medications: Current Medications Acetaminophen (Tylenol 325mg Tab) 650 mg PO Q6 PRN PRN Reason: Temperature Last Admin: 07/29/17 10:53 Dose: 650 mg Aspirin (Ecotrin) 81 mg PO DAILY [facility] Last Admin: 08/02/17 10:05 Dose: 81 mg Atorvastatin Calcium (Lipitor) 20 mg PO DAILY [facility] Last Admin: 08/02/17 10:05 Dose: 20 mg Diltiazem HCl (Cardizem) 60 mg PO Q12 [facility] Last Admin: 08/02/17 10:05 Dose: 60 mg Docusate Sodium (Colace) 200 mg PO HS [facility] Last Admin: 08/01/17 22:05 Dose: 200 mg Famotidine (Pepcid) 20 mg PO BID [facility] Last Admin: 08/02/17 10:06 Dose: 20 mg Sodium Chloride (Sodium Chloride 0.9%) 1,000 mls @ 50 mls/hr IV .Q20H [facility] Last Admin: 07/30/17 10:17 Dose: 50 mls/hr Loratadine (Claritin) 10 mg PO DAILY [facility] Last Admin: 08/02/17 10:05 Dose: 10 mg Oseltamivir Phosphate (Tamiflu Cap) 75 mg PO BID [facility] PRN Reason: Protocol Stop: 08/03/17 10:16 Last Admin: 08/02/17 10:06 Dose: 75 mg Physical Exam - Constitutional Appears: Well - Head Exam Head Exam: ATRAUMATIC, NORMAL INSPECTION, NORMOCEPHALIC - Eye Exam Eye Exam: EOMI, Normal appearance, PERRL Pupil Exam: NORMAL ACCOMODATION, PERRL - ENT Exam ENT Exam: Mucous Membranes Moist, Normal Exam - Neck Exam Neck exam: Positive for: Normal Inspection - Respiratory Exam Respiratory Exam: Clear to Auscultation Bilateral, NORMAL BREATHING PATTERN - Cardiovascular Exam Cardiovascular Exam: REGULAR RHYTHM - GI/Abdominal Exam GI & Abdominal Exam: Normal Bowel Sounds, Soft. absent: Tenderness - Rectal Exam Rectal Exam: NORMAL INSPECTION - Extremities Exam Extremities exam: Positive for: normal inspection - Back Exam Back exam: NORMAL INSPECTION - Neurological Exam Neurological exam: Alert, CN II-XII Intact, Reflexes Normal Additional comments: Patient non-verbal but awake and alert. - Psychiatric Exam Psychiatric exam: Normal Affect, Normal Mood - Skin Skin Exam: Dry, Intact, Normal Color, Warm Results - Vital Signs Recent Vital Signs: Last Vital Signs Temp 99.6 F 08/02/17 07:30 Pulse 79 08/02/17 10:05 Resp 20 08/02/17 07:30 BP 132/77 08/02/17 10:05 Pulse Ox 97 08/02/17 07:30 - Labs Result Diagrams: 08/02/17 09:00 08/02/17 09:00 Labs: Laboratory Results - last 24 hr 08/02/17 08/02/17 09:00 09:00 WBC 6.5 D RBC 3.28 L Hgb 9.6 L Hct 29.8 L MCV 90.9 MCH 29.3 MCHC 32.2 RDW 13.3 Plt Count 108 L MPV 11.5 H Sodium 139 Potassium 3.9 Chloride 105 Carbon Dioxide 26 Anion Gap 11 BUN 16 Creatinine 0.7 Est GFR ( Amer) > 60 Est GFR (Non-Af Amer) > 60 Random Glucose 156 H Calcium 9.2 Assessment & Plan - Assessment and Plan (Free Text) Assessment: 77 year old female s/p flex sigmoidoscopy with noted bleeding from vascular polypoid lesion vs Deulafoy lesion status post Hemoclip 2. GI on case. Plan: CT Chest Monitor H&H and for further GI bleed On stool softener On Tamiflu Continue Pepcid On clear liquids, advance diet mech altered No acute surgical intervention at this time - patient needs to follow up with Dr. Samuel in his clinic for results of her CT Chest
[2017-08-02] MEDS: Sodium Chloride 0.9% 1,000 ML IV SCH (17:50)
--- NOTE | 2017-08-02 23:38 | PN ---
DATE: 08/02/2017 SUBJECTIVE: Patient is in bed, in no acute distress, nontoxic. OBJECTIVE: VITAL SIGNS: Temperature is 98, T-max is 100, respiratory rate of 18, heart rate of 79. HEENT: Unremarkable. NECK: Supple. LUNGS: Have decreased breath sounds. HEART: Normal S1, S2. ABDOMEN: Soft, nontender. LABORATORY DATA: Reveals a white count of 6.5, hemoglobin of 9, platelets of 108. Chemistries reveal the patient's BUN is 16, creatinine of 0.7, procalcitonin is 4.4. Urinalysis is noted. Serology is positive for influenza. Microbiology reveals the urine blood cultures are no growth. Review of the orders reveals the patient to be on Tamiflu. ASSESSMENT AND PLAN: This is a 77-year-old female who also had a rectal bleeding, had a rectal polyp and had a sigmoidoscopy by Dr. Rust, [employer], with hypertension, dementia, status post hip replacement, admitted with sepsis with influenza, rectal bleeding, and dementia, on Tamiflu. Today is day #5 with complete 5 days of Tamiflu. Patient is at risk for developing nosocomial infections, can discontinue the isolation for influenza. Israel Terry MD
--- NOTE | 2017-08-03 14:52 | DS ---
HISTORY OF PRESENT ILLNESS: The patient is a 77-year-old, seen and examined, seems to be comfortable. No nausea or vomiting. No diarrhea. Eating and tolerating. No more rectal bleeding. PHYSICAL EXAMINATION VITAL SIGNS: She is afebrile, pulse 79, respirations 20, and blood pressure 132/77. LUNGS: Bilateral fair air flow. No rhonchi or crackle. HEART: S1 and S2 audible. ABDOMEN: Soft, nontender. No rebound. No guarding. NEUROLOGIC: The patient is awake and alert, but is not communicative because of advanced dementia. LABORATORY DATA: WBC 6.5, hemoglobin 9.6, hematocrit 29.8, and platelets of 108,000. Chemistry: Sodium 139, potassium 3.9, chloride 105, CO2 23, BUN 16, creatinine 0.7, and blood sugar of 156. ASSESSMENT AND PLAN 1. Rectal bleeding secondary to vascular polypoid lesion, had clipping done yesterday. 2. Viral syndrome. The patient finished course of Tamiflu and needs to have two more days. 3. Dementia. 4. History of fall with right open reduction and internal fixation. 5. Anemia. The plan is, discussed with Dr. Rust. At this point, we will just watch given her age and other comorbidities. There is no plan for any surgical intervention. We will watch it closely if she started to bleed again, might need surgical intervention. Discussed with the patient's son who is agreeable for that, so the patient will be transferred back to the residential and we will give her 2 more days of Tamiflu and we will watch her very closely for rectal bleeding. Davon Marie MD
== END 2017-08-02 21:10 | DRG 193 ==
LOC: EDBD → ED 01:25 → ERH 05:37 → 5RNO 09:21 → OBSVTOIN 22:20
PROVIDERS: ADMIT Internal Medicine; ATTEND Internal Medicine
PROC: 0W3P8ZZ Control Bleeding in Gastrointestinal Tract, Via Natural or Artificial Opening Endoscopic (ICD-10-PCS; principal; 2017-08-01 08:00)
DX: J10.1 Influenza due to other identified influenza virus with other respiratory manifestations (principal); K63.81 Dieulafoy lesion of intestine; D69.6 Thrombocytopenia, unspecified; D64.9 Anemia, unspecified; E78.5 Hyperlipidemia, unspecified; I10 Essential (primary) hypertension; M15.9 Polyosteoarthritis, unspecified; K59.00 Constipation, unspecified; K64.0 First degree hemorrhoids; K62.1 Rectal polyp; R26.81 Unsteadiness on feet; F02.80 Dementia in other diseases classified elsewhere, unspecified severity, without behavioral disturbance, psychotic disturbance, mood disturbance, and anxiety; G30.9 Alzheimer's disease, unspecified

== ENCOUNTER 2017-10-10 15:21 | Inpatient (IN) | payer MEDICARE, OTHER ==
[2017-10-10 15:43] VITALS: BMI 14.6
[2017-10-10] MEDS ORDERED: Vancomycin 1gm in NS 250ml 1 GM/250 ML BAG IVPB STA (15:47)
[2017-10-10] MEDS ORDERED: Piperacillin/Tazobact 3.375 gm 100 ML IVPB STA (15:47)
[2017-10-10] MEDS ORDERED: Sodium Chloride 0.9% 1,000 ML IV STA (15:48)
[2017-10-10 16:23] LABS: GRAN # 6.12 (1.4-6.5); GRAN % 73.7 % (50.0-68.0); HEMOGLOBIN 11.7 g/dL (12.0-16.0); LYMPH # 1.9 (1.2-3.4); LYMPH % 22.8 % (22.0-35.0); MEAN CORPUSCULAR HEMOGLOBIN 28.1 pg (25.0-35.0); MEAN CORPUSCULAR HGB CONC 27.9 g/dl (31.0-37.0); MEAN PLATELET VOLUME 13.7 fl (7.0-11.0); MONO # 0.3 (0.1-0.6); MONO % 3.5 % (1.0-6.0); RBC 4.16 10^6/uL (3.5-6.1); RED CELL DISTRIBUTION WIDTH 14.6 % (11.5-14.5); WHITE BLOOD COUNT 8.3 10^3/ul (4.5-11.0)
[2017-10-10 16:28] LABS: VENOUS BLOOD GAS BASE EXCESS -1.5 mmol/L (0.0-2.0); VENOUS BLOOD GAS PO2 36 mm/Hg (30-55); VENOUS BLOOD PH 7.33 (7.32-7.43)
[2017-10-10 16:39] LABS: INR 1.35 (0.93-1.08); PROTHROMBIN TIME 15.5 SECONDS (9.4-12.5)
--- NOTE | 2017-10-10 16:43 | RAD ---
HISTORY: sepsis COMPARISON: 07/29/2017 FINDINGS: LUNGS: No active pulmonary disease. PLEURA: No significant pleural effusion identified, no pneumothorax apparent. CARDIOVASCULAR: No radiographic findings to suggest acute or significant cardiovascular disease. OSSEOUS STRUCTURES: No significant abnormalities. VISUALIZED UPPER ABDOMEN: Normal. OTHER FINDINGS: None. IMPRESSION: No active disease. No significant interval change compared to the prior examination(s).
[2017-10-10 16:49] LABS: ALBUMIN 3.3 g/dL (3.0-4.8); CALCIUM 8.5 mg/dL (8.4-10.5); TROPONIN I 0.06 ng/mL
[2017-10-10 16:51] LABS: PH,URINE 5.5 (4.7-8.0); URINE BILIRUBIN NEGATIVE (NEGATIVE); URINE BLOOD LARGE (NEGATIVE); URINE GLUCOSE (UA) >=1000 mg/dL (NEGATIVE); URINE LEUKOCYTE ESTERASE SMALL Leu/uL (NEGATIVE); URINE PROTEIN 30 mg/dL (<30 mg/dL); URINE UROBILINOGEN 0.2 E.U./dL (<1 E.U./dL)
[2017-10-10 16:53] LABS: URINE APPEARANCE CLEAR (CLEAR); URINE COLOR YELLOW (YELLOW)
[2017-10-10] MEDS ORDERED: Insulin Regular 100 UNITS in Sodium Chloride 0.9% 99 ML IV PRN ×2 (16:53→17:11)
--- NOTE | 2017-10-10 16:54 | ED PDOC ---
Arrival/HPI - General Chief Complaint: Altered Mental Status Time Seen by Provider: 10/10/17 15:24 - History of Present Illness Narrative History of Present Illness (Text): 10/10/17 15:55 A 77 year old female, whose past medical history includes dementia, hypertension , minimally verbal at baseline, is sent from [facility] for AMS. Limited HPI and ROS due to patient's AMS and fever. It has been reported by [facility] that patient experiences constipation when at facility and had low O2 sats. Full code at bedside. PMD: Dr. Marie Past Medical History - Provider Review Nursing Documentation Reviewed: Yes - Infectious Disease Hx of Infectious Diseases: None - Cardiac Hx Hypertension: Yes - Pulmonary Hx Respiratory Disorders: No - Neurological Hx Neurological Disorder: Yes Hx Dementia: Yes - Renal Hx Renal Disorder: No - Endocrine/Metabolic Hx Endocrine Disorders: No - Hematological/Oncological Hx Blood Disorders: No - Integumentary Hx Dermatological Disorder: No - Musculoskeletal/Rheumatological Hx Musculoskeletal Disorders: Yes Hx Falls: Yes Hx Osteoporosis: Yes Hx Unsteady Gait: Yes - Gastrointestinal Hx Gastrointestinal Disorders: No - Genitourinary/Gynecological Hx Genitourinary Disorders: No Hx Incontinence: Yes - Psychiatric Hx Psychophysiologic Disorder: No Hx Substance Use: No - Surgical History Hx Joint Replacement: Yes (R hip) - Anesthesia Hx Anesthesia: Yes Hx Anesthesia Reactions: No Hx Malignant Hyperthermia: No Family/Social History - Physician Review Nursing Documentation Reviewed: Yes Family/Social History: No Known Family HX Smoking Status: Never Smoked Hx Alcohol Use: No Hx Substance Use: No Allergies/Home Meds Allergies/Adverse Reactions: Allergies No Known Allergies Allergy (Unverified 07/29/17 02:26) Home Medications: Home Meds Medication Instructions Recorded Confirmed Calcium Carbonate/Vitamin D3 1 each PO DAILY 07/29/17 10/10/17 [Calcium 500-Vit D3 200 Caplet] Celecoxib [celeBREX] 200 mg PO DAILY 07/29/17 10/10/17 Cyanocobalamin (Vitamin B-12) 1,000 mcg PO DAILY 07/29/17 10/10/17 [Vitamin B12] Lactulose [Generlac] 20 gm PO DAILY PRN 07/29/17 10/10/17 Ascorbic Acid [Vitamin C 500 mg 1 tab PO DAILY 10/10/17 10/10/17 Tab] Review of Systems - Review of Systems Systems not reviewed;Unavailable: Altered Mental Status Physical Exam Vital Signs Reviewed: Yes Vital Signs Temp Pulse Resp BP Pulse Ox 10/10/17 18:34 99.7 F H 118 H 32 H 118/59 L 99 10/10/17 16:33 120 H 30 H 113/77 96 10/10/17 15:22 101.8 F H 139 H 22 133/59 L 94 L Temperature: Afebrile Blood Pressure: Normal Pulse: Tachycardic Respiratory Rate: Normal Appearance: Positive for: Cachectic Pain Distress: None - Systems Exam Head: Present: Atraumatic, Normocephalic Pupils: Present: PERRL Extroacular Muscles: Present: EOMI Conjunctiva: Present: Normal Mouth: Present: Moist Mucous Membranes Neck: Present: Normal Range of Motion Respiratory/Chest: Present: Clear to Auscultation, Good Air Exchange. No: Respiratory Distress, Accessory Muscle Use Cardiovascular: Present: Regular Rate and Rhythm, Normal S1, S2. No: Murmurs Abdomen: No: Tenderness, Distention, Peritoneal Signs Back: Present: Normal Inspection Upper Extremity: Present: Normal Inspection. No: Cyanosis, Edema Lower Extremity: Present: Normal Inspection. No: Edema Neurological: Present: GCS=15, CN II-XII Intact, Speech Normal Skin: Present: Warm, Dry, Normal Color. No: Rashes Medical Decision Making ED Course and Treatment: 10/10/17 16:00 Impression: 77 year old female with AMS sent from [facility]. Physical exam shows patient appears cachectic, otherwise benign. Plan: -- EKG -- Chest X-ray -- Abd/Pelvis CT -- Head CT -- Labs -- Blood Culture -- Urine Culture -- Venous Blood Gas -- Tylenol -- Sodium Chloride IV Fluids -- Vancomycin -- Piperacillin -- Influenza A B Stat -- Urinalysis -- Reassess and disposition Progress Notes: EKG: Ordered, reviewed, and independently interpreted the EKG. Rate : 119 BPM Rhythm : Sinus tachycardia. Interpretation : New ST depressions, lateral leads. Comparison : No previous EKG for comparison. 10/10/17 16:33 Code Sepsis called. 10/10/2017 16:41 Chest X-ray IMPRESSION: No active disease. No significant interval change compared to the prior examination(s). Dictator: David Pimentel MD 10/16/17 11:02 accepted by icu. pt full code at admission. - Critical Care Critical Care Minutes: 45 minutes - Lab Interpretations Microbiology Results: Microbiology Results 10/10/17 16:30 Blood Blood Culture - Final NO GROWTH AFTER 5 DAYS 10/10/17 16:00 Blood Blood Culture - Final NO GROWTH AFTER 5 DAYS 10/10/17 16:00 Blood Gram Stain - Final TEST NOT PERFORMED Lab Results: 10/10/17 16:00 10/10/17 16:00 Lab Results 10/10/17 16:40: Urine Color Yellow, Urine Appearance Clear, Urine pH 5.5, Ur Specific [place] 1.025, Urine Protein 30 H, Urine Glucose (UA) >=1000, Urine Ketones Negative, Urine Blood Large H, Urine Nitrate Negative, Urine Bilirubin Negative, Urine Urobilinogen 0.2, Ur Leukocyte Esterase Small H, Urine RBC Tntc , Urine WBC 10 - 15, Ur Epithelial Cells 6 - 8, Amorphous Sediment Few, Urine Bacteria Large, Urine Other Fiber 10/10/17 16:00: Serum Osmolality 405 H 10/10/17 16:00: Sodium 172 H* D, Chloride 128 H D, Potassium 4.1, Carbon Dioxide 26, Anion Gap 23 H, BUN 80 H, Creatinine 2.2 H, Est GFR ( Amer) 26, Est GFR (Non-Af Amer) 22, Random Glucose 812 H* D, Calcium 8.5, Magnesium 2.8 H, Total Bilirubin 0.5, AST 62 H D, ALT 102 H, Alkaline Phosphatase 93, Lactate Dehydrogenase 706 H, Total Creatine Kinase 120, Troponin I 0.06 D, Total Protein 6.7, Albumin 3.3, Globulin 3.3, Albumin/Globulin Ratio 1.0 L, Lipase 451 H 10/10/17 16:00: PT 15.5 H, INR 1.35 H, APTT 26.0 10/10/17 16:00: WBC 8.3 D, RBC 4.16, Hgb 11.7 L D, Hct 42.0, MCV 101.0 D, MCH 28.1, MCHC 27.9 L, RDW 14.6 H, Plt Count 101 L, MPV 13.7 H, Gran % 73.7 H, Lymph % (Auto) 22.8, Lawrence % (Auto) 3.5, Eos % (Auto) 0.0 L, Baso % (Auto) 0.0, Gran # 6.12, Lymph # (Auto) 1.9, Lawrence # (Auto) 0.3, Eos # (Auto) 0.0, Baso # ( Auto) 0.00 10/10/17 16:00: pO2 36, VBG pH 7.33, VBG pCO2 47.0, VBG HCO3 24.8, VBG Total CO2 26.2, VBG O2 Sat (Calc) 69.5 H, VBG Base Excess -1.5 L, VBG Potassium 3.7, Sodium 167.0 H*, Chloride 130.0 H, Glucose > 750 H* D, Lactate 2.6 H, FiO2 21.0 , Venous Blood Potassium 3.7 - RAD Interpretation Radiology Orders: 10/10/17 15:47 CHEST PORTABLE [RAD] Stat 10/10/17 16:51 HEAD W/O CONTRAST [CT] Stat 10/10/17 16:52 ABD & PELVIS W/O PO OR IV CONT [CT] Stat - Medication Orders Current Medication Orders: Albuterol/Ipratropium (Duoneb 3 Mg/0.5 Mg (3 Ml) Ud) 3 ml IH [id number] JONNY Last Admin: 10/16/17 07:21 Dose: 3 ml Albuterol/Ipratropium (Duoneb 3 Mg/0.5 Mg (3 Ml) Ud) 3 ml IH Q2H PRN PRN Reason: Shortness of Breath Doxercalciferol (Hectorol) 1 mcg IV DAILY [facility] Last Admin: 10/15/17 10:37 Dose: 1 mcg eMAR Start Stop Document 10/15/17 10:37 GLI (Rec: 10/15/17 10:37 GLI [id number]) Intravenous Solution Start Date 10/15/17 Start Time 10:37 End Date 10/15/17 Famotidine (Pepcid) 10 mg IVP DAILY JONNY Last Admin: 10/16/17 10:03 Dose: 10 mg IVP Administration Document 10/16/17 10:03 [id number] (Rec: 10/16/17 10:[id number] [facility]- [employer]LE[employer] ADMINISTRATIVE ASSISTANT) Charges for Administration # of IVP Administrations 1 Doxycycline Hyclate 100 mg/ (Sodium Chloride) 100 mls @ 100 mls/hr IVPB Q12 JONNY PRN Reason: Protocol Last Admin: 10/16/17 10:01 Dose: 100 mls/hr eMAR Start Stop Document 10/16/17 10:01 [id number] (Rec: 10/16/17 10:01 [id number] [facility]- [employer]LE[employer] ADMINISTRATIVE ASSISTANT) Intravenous Solution Start Date 10/16/17 Start Time 10:01 End Date 10/16/17 End time 11:01 Total Infusion Time 60 Meropenem 500 mg/ Sodium (Chloride) 50 mls @ 100 mls/hr IVPB DAILY JONNY PRN Reason: Protocol Last Admin: 10/16/17 10:01 Dose: 100 mls/hr eMAR Start Stop Document 10/16/17 10:01 [id number] (Rec: 10/16/17 10:01 [id number] [facility]- FLEET ADMINISTRATIVE ASSISTANT) Intravenous Solution Start Date 10/16/17 Start Time 10:01 End Date 10/16/17 End time 10:31 Total Infusion Time 30 Vancomycin HCl (Vancomycin 1gm) 1 gm in 250 mls @ 167 mls/hr IVPB STAT STA PRN Reason: Protocol Stop: 10/16/17 11:18 Last Admin: 10/16/17 10:05 Dose: 167 mls/hr eMAR Start Stop Document 10/16/17 10:05 [email or web address] (Rec: 10/16/17 10:05 [id number] [facility]- FLEET ADMINISTRATIVE ASSISTANT) Intravenous Solution Start Date 10/16/17 Start Time 10:05 End Date 10/16/17 End time 11:35 Total Infusion Time 90 Sodium Chloride (Sodium Chloride 0.9%) 1,000 mls @ 150 mls/hr IV .Q6H40M [facility] Last Admin: 10/16/17 10:18 Dose: 150 mls/hr eMAR Start Stop Document 10/16/17 10:18 [email or web address] (Rec: 10/16/17 10:18 [id number] [facility]- FLEET ADMINISTRATIVE ASSISTANT) Intravenous Solution Start Date 10/16/17 Start Time 10:18 Insulin Human Regular (Humulin R Med) 0 units SC ACHS JONNY PRN Reason: Protocol Last Admin: 10/16/17 08:06 Dose: 8 units MAR Blood Glucose Document 10/16/17 08:06 [email or web address] (Rec: 10/16/17 08:06 [id number] [facility]- [employer]LEET ADMINISTRATIVE ASSISTANT) Blood Glucose Finger Stick Blood Glucose (70-120) 384 Subcutaneous Administrations Document 10/16/17 08:06 [email or web address] (Rec: 10/16/17 08:[id number] [facility]- FLEET ADMINISTRATIVE ASSISTANT) Injection Site MAR Injection Site Left Arm Charges for Administration # of Subcutaneous Administrations 1 Morphine Sulfate (Morphine) 2 mg IV Q6H PRN PRN Reason: Pain, moderate (4-7) Mupirocin (Bactroban Ointment) 0 gm NS BID JONNY Stop: 10/17/17 10:01 Last Admin: 10/16/17 10:00 Dose: 1 applic Discontinued Medications Acetaminophen (Tylenol 650 Mg Supp) 650 mg RC STAT STA Stop: 10/10/17 16:19 Last Admin: 10/10/17 16:20 Dose: 650 mg Re-Assess: MAR Pain/Vitals Document 10/10/17 17:20 SRE (Rec: 10/10/17 17:50 SRE [id number]) Pain Reassessment Is This A Pain ReAssessment? Yes Albuterol Sulfate (Albuterol 0.083% Inhal Madelaine (2.5 Mg/3 Ml) Ud) 2.5 mg INH STAT STA Stop: 10/11/17 14:18 Last Admin: 10/11/17 14:31 Dose: 2.5 mg Dextrose (Dextrose 50% Inj) 50 ml IVP ONCE ONE Stop: 10/11/17 11:45 Last Admin: 10/11/17 11:54 Dose: 50 ml IVP Administration Document 10/11/17 11:54 AE (Rec: 10/11/17 11:54 AE [id number]) Charges for Administration # of IVP Administrations 1 Dextrose (Dextrose 50% Inj) 50 ml IVP ONCE ONE Stop: 10/11/17 14:18 Dextrose (Dextrose 50% Inj) 150 ml IVP ONCE ONE Stop: 10/11/17 14:18 Last Admin: 10/11/17 15:19 Dose: 150 ml IVP Administration Document 10/11/17 15:19 AE (Rec: 10/11/17 15:19 AE [id number]) Charges for Administration # of IVP Administrations 1 Dextrose (Dextrose 50% Inj) 50 ml IVP ONCE ONE Stop: 10/13/17 00:16 Last Admin: 10/13/17 00:30 Dose: 50 ml IVP Administration Document 10/13/17 00:30 ID (Rec: 10/13/17 02:56 ID [id number]) Charges for Administration # of IVP Administrations 1 Dextrose (Dextrose 50% Inj) 50 ml IVP ONCE ONE Stop: 10/15/17 09:12 Last Admin: 10/15/17 09:20 Dose: 50 ml IVP Administration Document 10/15/17 09:20 GLI (Rec: 10/15/17 09:20 GLI [id number]) Charges for Administration # of IVP Administrations 1 Furosemide (Lasix) 20 mg IVP ONCE ONE Stop: 10/14/17 09:10 Last Admin: 10/14/17 10:14 Dose: 20 mg MAR Blood Pressure Document 10/14/17 10:14 MMA (Rec: 10/14/17 10:14 MMA [id number]) Blood Pressure Blood Pressure (100/60-150/90) 134/68 IVP Administration Document 10/14/17 10:14 MMA (Rec: 10/14/17 10:14 MMA [id number]) Charges for Administration # of IVP Administrations 1 Heparin Sodium (Porcine) (Heparin) 2,700 units 70 units/kg (2700 units) IV ONCE ONE PRN Reason: Protocol Stop: 10/11/17 04:26 Last Admin: 10/11/17 04:45 Dose: 2,700 units eMAR Start Stop Document 10/11/17 04:45 KGD (Rec: 10/11/17 04:[address] [id number]) Intravenous Solution Start Date 10/11/17 Start Time 04:45 Hydrocortisone Sodium Succinate (Solu-Cortef) 50 mg IVP Q6 [facility] Last Admin: 10/12/17 05:15 Dose: 50 mg IVP Administration Document 10/12/17 05:15 ID (Rec: 10/12/17 05:15 ID [id number]) Charges for Administration # of IVP Administrations 1 Hydrocortisone Sodium Succinate (Solu-Cortef) 50 mg IVP Q12 [facility] Last Admin: 10/12/17 21:43 Dose: 50 mg IVP Administration Document 10/12/17 21:43 ID (Rec: 10/12/17 21:43 ID [id number]) Charges for Administration # of IVP Administrations 1 Hydrocortisone Sodium Succinate (Solu-Cortef) 50 mg IVP DAILY [facility] Last Admin: 10/14/17 10:13 Dose: 50 mg IVP Administration Document 10/14/17 10:13 MMA (Rec: 10/14/17 10:13 MMA [id number]) Charges for Administration # of IVP Administrations 1 Vancomycin HCl (Vancomycin 1gm) 1 gm in 250 mls @ 167 mls/hr IVPB STAT STA PRN Reason: Protocol Stop: 10/10/17 17:16 Last Admin: 10/10/17 17:30 Dose: 167 mls/hr eMAR Start Stop Document 10/10/17 17:30 SRE (Rec: 10/10/17 17:50 SRE [id number]) Intravenous Solution Start Date 10/10/17 Start Time 17:30 End Date 10/10/17 End time 19:00 Total Infusion Time 90 Piperacillin Sod/Tazobactam Sod (Zosyn 3.375 In Ns 100ml) 100 mls @ 200 mls/hr IVPB STAT STA PRN Reason: Protocol Stop: 10/10/17 16:16 Last Admin: 10/10/17 16:26 Dose: 200 mls/hr eMAR Start Stop Document 10/10/17 16:26 SRE (Rec: 10/10/17 16:27 SRE [id number]) Intravenous Solution Start Date 10/10/17 Start Time 16:20 End Date 10/10/17 End time 17:20 Total Infusion Time 60 Sodium Chloride (Sodium Chloride 0.9%) 1,000 mls @ 999 mls/hr IV .Q1H1M STA Stop: 10/10/17 16:48 Last Admin: 10/10/17 16:25 Dose: 999 mls/hr eMAR Start Stop Document 10/10/17 16:25 SRE (Rec: 10/10/17 16:26 SRE [id number]) Intravenous Solution Start Date 10/10/17 Start Time 16:00 End Date 10/10/17 End time 17:00 Total Infusion Time 60 Insulin Human Regular 100 (units/ Sodium Chloride) 100 mls @ 6 mls/hr IV .[id number] PRN; Protocol; 6 UNITS/HR PRN Reason: TITRATE PER MD ORDER Insulin Human Regular 100 (units/ Sodium Chloride) 100 mls @ 4 mls/hr IV .Q24H PRN; Protocol; 4 UNITS/HR PRN Reason: TITRATE PER MD ORDER Last Titration: 10/11/17 05:48 Dose: 0 units/hr, 0 mls/hr Titration Intervention Document 10/11/17 05:48 KGD (Rec: 10/11/17 05:[address] [id number]) Titration Intake Titration Intake 10 Cumulative Intake 70 Cumulative Intake (Rx) 70 Waste Amount 0 Container Volume 30 Titration Dosing Titration Dose 0 IV Rate 0 Intake/Decrease Paused Cumulative Dose 70 Sodium Chloride (Sodium Chloride 0.45%) 1,000 mls @ 100 mls/hr IV .Q10H JONNY Last Admin: 10/10/17 18:53 Dose: 100 mls/hr eMAR Start Stop Document 10/10/17 18:53 SRE (Rec: 10/10/17 18:53 SRE [id number]) Intravenous Solution Start Date 10/10/17 Start Time 18:53 Cefepime HCl (Maxipime 1gm) 1 gm in 100 mls @ 100 mls/hr IVPB Q12 JONNY PRN Reason: Protocol Last Admin: 10/10/17 22:09 Dose: 100 mls/hr eMAR Start Stop Document 10/10/17 22:09 KGD (Rec: 10/10/17 22:09 KGD [id number]) Intravenous Solution Start Date 10/10/17 Start Time 22:09 Meropenem 250 mg/ Sodium (Chloride) 100 mls @ 100 mls/hr IVPB Q12H JONNY PRN Reason: Protocol Stop: 10/19/17 22:46 Last Admin: 10/11/17 11:19 Dose: 100 mls/hr eMAR Start Stop Document 10/11/17 11:19 AE (Rec: 10/11/17 11:19 AE [id number]) Intravenous Solution Start Date 10/11/17 Start Time 11:19 End Date 10/11/17 End time 12:20 Total Infusion Time 61 diltiaZEM IVPB 100mg in NS (Cardizem 100mg In Ns) 100 mls @ 5 mls/hr IV .Q20H PRN; Protocol; 5 MG/HR PRN Reason: TITRATE PER MD ORDER Last Admin: 10/11/17 01:15 Dose: 5 mg/hr, 5 mls/hr eMAR Start Stop Document 10/11/17 01:15 KGD (Rec: 10/11/17 01:15 KGD [id number]) Intravenous Solution Start Date 10/11/17 Start Time 01:15 MAR Pulse Rate Document 10/11/17 01:15 KGD (Rec: 10/11/17 01:15 KGD [id number]) Pulse Rate Pulse Rate (60-90) 140 Titration Intervention Document 10/11/17 01:15 KGD (Rec: 10/11/17 01:15 KGD [id number]) Titration Intake Waste Amount 0 Container Volume 100 Titration Dosing Titration Dose 5 IV Rate 5 Intake/Decrease Started Heparin Sodium/Sodium Chloride (Heparin 29694 Units/250ml 1/2 Normal Saline) 25 ,000 units in 250 mls @ 6.94 mls/hr IV .Q24H PRN; Protocol; 18 UNITS/KG/HR PRN Reason: ADJUST RATE PER PROTOCOL Last Admin: 10/11/17 04:45 Dose: 18 units/kg/hr, 6.94 mls/hr eMAR Start Stop Document 10/11/17 04:45 KGD (Rec: 10/11/17 05:[address] [id number]) Intravenous Solution Start Date 10/11/17 Start Time 04:45 Titration Intervention Document 10/11/17 04:45 KGD (Rec: 10/11/17 05:[address] [id number]) Titration Intake Waste Amount 0 Container Volume 250 Titration Dosing Titration Dose 18 IV Rate 6.94 Intake/Decrease Started Cefepime HCl 0.5 gm/ Sodium (Chloride) 100 mls @ 100 mls/hr IVPB Q24H JONNY PRN Reason: Protocol Vancomycin HCl (Vancomycin 1gm) 1 gm in 250 mls @ 167 mls/hr IVPB STAT STA PRN Reason: Protocol Stop: 10/11/17 05:57 Last Admin: 10/11/17 04:36 Dose: 167 mls/hr eMAR Start Stop Document 10/11/17 04:36 KGD (Rec: 10/11/17 04:36 KGD [id number]) Intravenous Solution Start Date 10/11/17 Start Time 04:36 Potassium Chloride (Potassium Chloride 10 Meq/100 Ml) 10 meq in 100 mls @ 50 mls/hr IVPB Q2H JONNY Stop: 10/11/17 11:59 Last Admin: 10/11/17 11:10 Dose: NOREPINEPHRINE BIT/0.9 % NACL (Levophed 4 Mg/ 250 Ml Ns Premixed) 4 mg in 250 mls @ 15 mls/hr IV .[id number] PRN; Protocol; 4 MCG/MIN PRN Reason: TITRATE PER MD ORDER Last Admin: 10/12/17 03:16 Dose: 15.01 mcg/min, 56.3 mls/hr eMAR Start Stop Document 10/12/17 03:16 ID (Rec: 10/12/17 03:17 ID [id number]) Intravenous Solution Start Date 10/12/17 Start Time 03:17 End Date 10/12/17 Titration Intervention Document 10/12/17 03:16 ID (Rec: 10/12/17 03:17 ID [id number]) Titration Intake Cumulative Intake (Rx) 750 Waste Amount 0 Container Volume 250 Titration Dosing Titration Dose 15.01 IV Rate 56.3 Intake/Decrease Started/Running Cumulative Dose 12 Lactated Ringer's (Lactated Ringer's) 1,000 mls @ 1,000 mls/hr IV .Q1H JONNY Stop: 10/11/17 08:29 Last Admin: 10/11/17 08:34 Dose: 1,000 mls/hr eMAR Start Stop Document 10/11/17 08:34 AE (Rec: 10/11/17 08:35 AE [id number]) Intravenous Solution Start Date 10/11/17 Start Time 08:35 End Date 10/11/17 End time 09:33 Total Infusion Time 58 Vasopressin 20 units/ Dextrose 101 mls @ 9.09 mls/hr IV .Q11H7M JONNY; 0.03 U/MIN PRN Reason: Protocol Last Admin: 10/13/17 06:41 Dose: 9.09 mls/hr eMAR Start Stop Document 10/13/17 06:41 ID (Rec: 10/13/17 06:49 ID [id number]) Intravenous Solution Start Date 10/13/17 Start Time 06:42 End Date 10/13/17 MAR Blood Pressure Document 10/13/17 06:41 ID (Rec: 10/13/17 06:49 ID [id number]) Blood Pressure Blood Pressure (100/60-150/90) 118/57 Calcium Gluconate 1,000 mg/ (Dextrose) 110 mls @ 110 mls/hr IVPB ONCE ONE Stop: 10/11/17 08:35 Last Admin: 10/11/17 08:46 Dose: Calcium Gluconate 1,000 mg/ (Dextrose) 110 mls @ 110 mls/hr IVPB ONCE ONE Stop: 10/11/17 08:36 Last Admin: 10/11/17 08:46 Dose: Calcium Gluconate 2,000 mg/ (Sodium Chloride) 120 mls @ 120 mls/hr IV ONCE ONE Stop: 10/11/17 08:59 Calcium Gluconate 2,000 mg/ (Sodium Chloride) 120 mls @ 60 mls/hr IV ONCE ONE Stop: 10/11/17 09:59 Last Admin: 10/11/17 08:33 Dose: 60 mls/hr eMAR Start Stop Document 10/11/17 08:33 AE (Rec: 10/11/17 08:33 AE [id number]) Intravenous Solution Start Date 10/11/17 Start Time 08:33 End Date 10/11/17 End time 10:33 Total Infusion Time 120 Potassium Chloride (Potassium Chloride 20 Meq/100 Ml) 20 meq in 100 mls @ 50 mls/hr IVPB Q2H JONNY Stop: 10/11/17 14:14 Last Admin: 10/11/17 12:40 Dose: 50 mls/hr eMAR Start Stop Document 10/11/17 12:40 AE (Rec: 10/11/17 12:40 AE [id number]) Intravenous Solution Start Date 10/11/17 Start Time 12:40 End Date 10/11/17 End time 14:40 Total Infusion Time 120 Pantoprazole Sodium (Protonix 40mg Ivpb) 40 mg in 100 mls @ 20 mls/hr IVPB .Q5H JONNY Last Admin: 10/12/17 05:02 Dose: 20 mls/hr eMAR Start Stop Document 10/12/17 05:02 ID (Rec: 10/12/17 05:02 ID [id number]) Intravenous Solution Start Date 10/12/17 Start Time 05:02 End Date 10/12/17 Sodium Bicarbonate 150 meq/ (Dextrose) 1,150 mls @ 100 mls/hr IV .[id number] JONNY Last Admin: 10/11/17 21:20 Dose: 100 mls/hr eMAR Start Stop Document 10/11/17 21:20 ID (Rec: 10/11/17 21:21 ID [id number]) Intravenous Solution Start Date 10/11/17 Start Time 21:21 End Date 10/11/17 Fentanyl Citrate (Fentanyl Citrate/Sodium Chloride 1 Mg/100 Ml) 1,000 mcg in 100 mls @ 2 mls/hr IV .Q24H PRN; Protocol; 20 MCG/HR PRN Reason: TITRATE PER MD ORDER Last Titration: 10/13/17 08:39 Dose: 0 mcg/hr, 0 mls/hr Vang Agitation Sedation Document 10/13/17 08:39 MMA (Rec: 10/13/17 08:40 MMA [id number]) Vang Agitation Sedation Scale Vang Agitation Sedation Scale Score -1 Drowsy: Not fully alert, sustained awakening (>10 sec) to voice Titration Intervention Document 10/13/17 08:39 MMA (Rec: 10/13/17 08:40 MMA [id number]) Titration Intake Titration Intake 12.9 Cumulative Intake 12.9 Cumulative Intake (Rx) 112.9 Waste Amount 0 Container Volume 87.1 Titration Dosing Titration Dose 0 IV Rate 0 Intake/Decrease Paused Cumulative Dose 1129 Meropenem (Merrem Iv 1 Gm Premix) 50 mls @ 100 mls/hr IVPB Q12 JONNY PRN Reason: Protocol Last Admin: 10/11/17 21:30 Dose: 100 mls/hr eMAR Start Stop Document 10/11/17 21:30 ID (Rec: 10/11/17 21:30 ID [id number]) Intravenous Solution Start Date 10/11/17 Start Time 21:30 End Date 10/11/17 Calcium Gluconate 1,000 mg/ (Dextrose) 110 mls @ 110 mls/hr IVPB ONCE ONE Stop: 10/11/17 15:17 Last Admin: 10/11/17 14:00 Dose: 110 mls/hr eMAR Start Stop Document 10/11/17 14:00 AE (Rec: 10/11/17 17:55 AE [id number]) Intravenous Solution Start Date 10/11/17 Start Time 14:00 End Date 10/11/17 End time 15:00 Total Infusion Time 60 Insulin Human Regular 100 (units/ Sodium Chloride) 100 mls @ 4 mls/hr IV .Q24H PRN; Protocol; 4 UNITS/HR PRN Reason: TITRATE PER MD ORDER Last Admin: 10/12/17 23:06 Dose: 4 units/hr, 4 mls/hr eMAR Start Stop Document 10/12/17 23:06 ID (Rec: 10/12/17 23:07 ID [id number]) Intravenous Solution Start Date 10/12/17 Start Time 23:07 End Date 10/12/17 Titration Intervention Document 10/12/17 23:06 ID (Rec: 10/12/17 23:07 ID [id number]) Titration Intake Cumulative Intake (Rx) 100 Waste Amount 0 Container Volume 100 Titration Dosing Titration Dose 4 IV Rate 4 Intake/Decrease Started/Running Cumulative Dose 100 Sodium Chloride (Sodium Chloride 0.45%) 1,000 mls @ 100 mls/hr IV .Q10H JONNY Last Admin: 10/12/17 21:42 Dose: 100 mls/hr eMAR Start Stop Document 10/12/17 21:42 ID (Rec: 10/12/17 21:43 ID [id number]) Intravenous Solution Start Date 10/12/17 Start Time 21:43 End Date 10/12/17 Calcium Gluconate 1,000 mg/ (Dextrose) 110 mls @ 110 mls/hr IVPB ONCE ONE Stop: 10/13/17 00:24 Last Admin: 10/13/17 00:12 Dose: 110 mls/hr eMAR Start Stop Document 10/13/17 00:12 ID (Rec: 10/13/17 00:12 ID [id number]) Intravenous Solution Start Date 10/13/17 Start Time 00:12 End Date 10/13/17 Sodium Chloride (Sodium Chloride 0.45%) 1,000 mls @ 100 mls/hr IV .Q10H JONNY Last Admin: 10/13/17 18:54 Dose: 100 mls/hr eMAR Start Stop Document 10/13/17 18:54 MMA (Rec: 10/13/17 18:54 MMA [id number]) Intravenous Solution Start Date 10/13/17 Start Time 18:54 End Date 10/14/17 Sodium Chloride (Sodium Chloride 0.45%) 1,000 mls @ 60 mls/hr IV .[id number] [facility] Last Admin: 10/13/17 22:00 Dose: 60 mls/hr eMAR Start Stop Document 10/13/17 22:00 MPD (Rec: 10/13/17 23:38 MPD [id number]) Intravenous Solution Start Date 10/13/17 Start Time 23:00 Calcium Gluconate 2,000 mg/ (Sodium Chloride) 120 mls @ 110 mls/hr IVPB ONCE ONE Stop: 10/14/17 08:57 Last Admin: 10/14/17 08:55 Dose: 110 mls/hr eMAR Start Stop Document 10/14/17 08:55 MMA (Rec: 10/14/17 08:56 MMA [id number]) Intravenous Solution Start Date 10/14/17 Start Time 08:55 End Date 10/14/17 End time 10:01 Total Infusion Time 66 Vancomycin HCl 2 gm/ Sodium (Chloride) 500 mls @ 170 mls/hr IVPB ONCE ONE PRN Reason: Protocol Stop: 10/14/17 11:25 Last Admin: 10/14/17 08:56 Dose: 170 mls/hr eMAR Start Stop Document 10/14/17 08:56 MMA (Rec: 10/14/17 08:56 MMA [id number]) Intravenous Solution Start Date 10/14/17 Start Time 08:56 End Date 10/14/17 End time 11:53 Total Infusion Time 177 Dextrose/Sodium Chloride (Dextrose 5%/0.9% Ns 1000 Ml) 1,000 mls @ 75 mls/hr IV .[id number] [facility] Last Admin: 10/14/17 18:07 Dose: 75 mls/hr eMAR Start Stop Document 10/14/17 18:07 MMA (Rec: 10/14/17 18:08 MMA [id number]) Intravenous Solution Start Date 10/14/17 Start Time 18:07 End Date 10/15/17 Sodium Bicarbonate 150 meq/ (Dextrose) 1,150 mls @ 150 mls/hr IV .Q7H40M [facility] Last Admin: 10/16/17 05:54 Dose: 150 mls/hr eMAR Start Stop Document 10/16/17 05:54 AOM (Rec: 10/16/17 05:54 AOM [facility]-FLEET ADMINISTRATIVE ASSISTANT) Intravenous Solution Start Date 10/16/17 Start Time 05:54 End Date 10/16/17 Vancomycin HCl 1.5 gm/ Sodium (Chloride) 500 mls @ 167 mls/hr IVPB ONCE ONE PRN Reason: Protocol Stop: 10/15/17 13:17 Last Admin: 10/15/17 12:00 Dose: 167 mls/hr eMAR Start Stop Document 10/15/17 12:00 GLI (Rec: 10/15/17 12:00 GLI [id number]) Intravenous Solution Start Date 10/15/17 Start Time 12:00 End Date 10/15/17 Calcium Gluconate 1,000 mg/ (Sodium Chloride) 110 mls @ 110 mls/hr IVPB ONCE ONE Stop: 10/16/17 09:48 Last Admin: 10/16/17 10:00 Dose: 110 mls/hr eMAR Start Stop Document 10/16/17 10:00 [id number] (Rec: 10/16/17 10:[id number] [facility] [place] FLEET ADMINISTRATIVE ASSISTANT) Intravenous Solution Start Date 10/16/17 Start Time 10:00 End Date 10/16/17 End time 11:00 Total Infusion Time 60 Insulin Human Regular (Humulin R) 10 units IV ONCE ONE Stop: 10/11/17 14:26 Last Admin: 10/11/17 14:57 Dose: 10 units eMAR Start Stop Document 10/11/17 14:57 AE (Rec: 10/11/17 14:58 AE [id number]) Intravenous Solution Start Date 10/11/17 Start Time 14:58 MAR Blood Glucose Document 10/11/17 14:57 AE (Rec: 10/11/17 14:58 AE [id number]) Blood Glucose Finger Stick Blood Glucose (70-120) 193 Insulin Human Regular (Humulin R) 10 units IV ONCE ONE Stop: 10/15/17 08:27 Last Admin: 10/15/17 09:09 Dose: 10 units eMAR Start Stop Document 10/15/17 09:09 GLI (Rec: 10/15/17 09:09 GLI [id number]) Intravenous Solution Start Date 10/15/17 Start Time 09:09 End Date 10/15/17 Morphine Sulfate (Morphine) 2 mg IVP Q6H PRN PRN Reason: Pain, moderate (4-7) Morphine Sulfate (Morphine) 2 mg IV Q6H PRN PRN Reason: Pain, moderate (4-7) Propofol (Diprivan) 25 mg IVP ONCE ONE Stop: 10/15/17 00:34 Last Admin: 10/15/17 00:00 Dose: 25 mg IVP Administration Document 10/15/17 00:00 AOM (Rec: 10/15/17 07:32 AOM [id number]) Charges for Administration # of IVP Administrations 1 Sodium Bicarbonate (Sodium Bicarbonate 8.4% (50 Meq) Syringe) 50 meq IVP ONCE ONE Stop: 10/11/17 16:54 Last Admin: 10/11/17 17:41 Dose: 50 meq IVP Administration Document 10/11/17 17:41 AE (Rec: 10/11/17 17:44 AE [id number]) Charges for Administration # of IVP Administrations 1 Sodium Polystyrene Sulfonate (Kayexalate Susp) 15 gm CA ONCE ONE Stop: 10/11/17 14:23 Last Admin: 10/11/17 14:57 Dose: Sodium Polystyrene Sulfonate (Kayexalate Susp) 15 gm PO ONCE ONE Stop: 10/11/17 14:31 Last Admin: 10/11/17 14:58 Dose: 15 gm Sodium Polystyrene Sulfonate (Kayexalate Susp) 15 gm PO ONCE ONE Stop: 10/15/17 06:29 Last Admin: 10/15/17 07:32 Dose: 15 gm - Scribe Statement The provider has reviewed the documentation as recorded by the Zabrina Enriquez Provider Scribe Attestation: All medical record entries made by the Zabrina were at my direction and personally dictated by me. I have reviewed the chart and agree that the record accurately reflects my personal performance of the history, physical exam, medical decision making, and the department course for this patient. I have also personally directed, reviewed, and agree with the discharge instructions and disposition. Disposition/Present on Arrival - Present on Arrival Any Indicators Present on Arrival: No History of DVT/PE: No History of Uncontrolled Diabetes: No Urinary Catheter: No History of Decub. Ulcer: No History Surgical Site Infection Following: None - Disposition Have Diagnosis and Disposition been Completed?: Yes Diagnosis: Hypernatremia, Sepsis Disposition: HOSPITALIZED Disposition Time: 06:00 Patient Problems: Current Active Problems Problem Status Onset Encephalopathy acute Acute Condition: CRITICAL
[2017-10-10 17:05] LABS: URINE AMORPHOUS SEDIMENT FEW; URINE BACTERIA LARGE (NEG); URINE RBC TNTC /hpf (0-2)
--- NOTE | 2017-10-10 17:56 | CP.PCM.CON ---
<Celso Preciado - Last Filed: 10/10/17 18:14> History of Present Illness - History of Present Illness History of Present Illness: ICU Consult note: 77 F with past medical history of HTN, dementia, S/P right hip replacement presents from [facility] (in the alf since Oct due to the hip surgery) for AMS and lethargy. Pt has baseline of severe dementia therefore history taken from daughters at bedside. As per daughter the patient was more lethargic recently, than she developed a fever and was brought to the ED for further evaluation. 12 Point ROS limited due to dementia PMHx : HTN, Dementia PSH: R hip replacement Allergies: NKDA SH: Patient denies smoking, alcohol, illicits Family History: Non-contributory Medications: Reviewed, see MAR Review of Systems - Review of Systems Systems not reviewed;Unavailable: Dementia All systems: reviewed and no additional remarkable complaints except (HPI) Past Patient History - Infectious Disease Hx of Infectious Diseases: None - Past Social History Smoking Status: Never Smoked - CARDIAC Hx Hypertension: Yes - PULMONARY Hx Respiratory Disorders: No - NEUROLOGICAL Hx Neurological Disorder: Yes Hx Dementia: Yes - RENAL Hx Chronic Kidney Disease: No - ENDOCRINE/METABOLIC Hx Endocrine Disorders: No - HEMATOLOGICAL/ONCOLOGICAL Hx Blood Disorders: No - INTEGUMENTARY Hx Dermatological Problems: No - MUSCULOSKELETAL/RHEUMATOLOGICAL Hx Musculoskeletal Disorders: Yes Hx Falls: Yes Hx Osteoporosis: Yes Hx Unsteady Gait: Yes - GASTROINTESTINAL Hx Gastrointestinal Disorders: No - GENITOURINARY/GYNECOLOGICAL Hx Genitourinary Disorders: No Hx Incontinence: Yes - PSYCHIATRIC Hx Psychophysiologic Disorder: No Hx Substance Use: No - SURGICAL HISTORY Hx Joint Replacement: Yes (R hip) - ANESTHESIA Hx Anesthesia: Yes Hx Anesthesia Reactions: No Hx Malignant Hyperthermia: No Meds Allergies/Adverse Reactions: Allergies Allergy/AdvReac Type Severity Reaction Status Date / Time No Known Allergies Allergy Unverified 07/29/17 02:26 - Medications Medications: Current Medications Insulin Human Regular 100 (units/ Sodium Chloride) 100 mls @ 4 mls/hr IV .Q24H PRN; Protocol; 4 UNITS/HR PRN Reason: TITRATE PER MD ORDER Physical Exam - Constitutional Appears: No Acute Distress - Head Exam Head Exam: ATRAUMATIC, NORMOCEPHALIC - Eye Exam Eye Exam: PERRL Pupil Exam: NORMAL ACCOMODATION - Respiratory Exam Respiratory Exam: Clear to Auscultation Bilateral. absent: Rales, Wheezes - Cardiovascular Exam Cardiovascular Exam: Tachycardia, +S1, +S2 - GI/Abdominal Exam GI & Abdominal Exam: Normal Bowel Sounds. absent: Distended - Extremities Exam Extremities exam: Negative for: calf tenderness, pedal edema - Neurological Exam Neurological exam: Altered, CN II-XII Intact - Skin Skin Exam: Dry, Warm Results - Vital Signs Recent Vital Signs: Last Vital Signs Temp 101.8 F H 10/10/17 15:22 Pulse 120 H 10/10/17 16:33 Resp 30 H 10/10/17 16:33 BP 113/77 10/10/17 16:33 Pulse Ox 96 10/10/17 16:33 - Labs Result Diagrams: 10/10/17 16:00 10/10/17 16:00 Labs: Laboratory Results - last 24 hr 10/10/17 10/10/17 10/10/17 16:00 16:00 16:00 WBC 8.3 D RBC 4.16 Hgb 11.7 L D Hct 42.0 MCV 101.0 D MCH 28.1 MCHC 27.9 L RDW 14.6 H Plt Count 101 L MPV 13.7 H Gran % 73.7 H Lymph % (Auto) 22.8 [place] % (Auto) 3.5 Eos % (Auto) 0.0 L Baso % (Auto) 0.0 Gran # 6.12 Lymph # (Auto) 1.9 [place] # (Auto) 0.3 Eos # (Auto) 0.0 Baso # (Auto) 0.00 PT 15.5 H INR 1.35 H APTT 26.0 pO2 36 VBG pH 7.33 VBG pCO2 47.0 VBG HCO3 24.8 VBG Total CO2 26.2 VBG O2 Sat (Calc) 69.5 H VBG Base Excess -1.5 L VBG Potassium 3.7 Sodium 167.0 H* Chloride 130.0 H Glucose > 750 H* D Lactate 2.6 H FiO2 21.0 Potassium Carbon Dioxide Anion Gap BUN Creatinine Est GFR ( Amer) Est GFR (Non-Af Amer) Random Glucose Calcium Magnesium Total Bilirubin AST ALT Alkaline Phosphatase Lactate Dehydrogenase Total Creatine Kinase Troponin I Total Protein Albumin Globulin Albumin/Globulin Ratio Lipase Venous Blood Potassium 3.7 Urine Color Urine Appearance Urine pH Ur Specific [place] Urine Protein Urine Glucose (UA) Urine Ketones Urine Blood Urine Nitrate Urine Bilirubin Urine Urobilinogen Ur Leukocyte Esterase Urine RBC Urine WBC Ur Epithelial Cells Amorphous Sediment Urine Bacteria Urine Other 10/10/17 10/10/17 16:00 16:40 WBC RBC Hgb Hct MCV MCH MCHC RDW Plt Count MPV Gran % Lymph % (Auto) [place] % (Auto) Eos % (Auto) Baso % (Auto) Gran # Lymph # (Auto) [place] # (Auto) Eos # (Auto) Baso # (Auto) PT INR APTT pO2 VBG pH VBG pCO2 VBG HCO3 VBG Total CO2 VBG O2 Sat (Calc) VBG Base Excess VBG Potassium Sodium 172 H* D Chloride 128 H D Glucose Lactate FiO2 Potassium 4.1 Carbon Dioxide 26 Anion Gap 23 H BUN 80 H Creatinine 2.2 H Est GFR ( Amer) 26 Est GFR (Non-Af Amer) 22 Random Glucose 812 H* D Calcium 8.5 Magnesium 2.8 H Total Bilirubin 0.5 AST 62 H D ALT 102 H Alkaline Phosphatase 93 Lactate Dehydrogenase 706 H Total Creatine Kinase 120 Troponin I 0.06 D Total Protein 6.7 Albumin 3.3 Globulin 3.3 Albumin/Globulin Ratio 1.0 L Lipase 451 H Venous Blood Potassium Urine Color Yellow Urine Appearance Clear Urine pH 5.5 Ur Specific [place] 1.025 Urine Protein 30 H Urine Glucose (UA) >=1000 Urine Ketones Negative Urine Blood Large H Urine Nitrate Negative Urine Bilirubin Negative Urine Urobilinogen 0.2 Ur Leukocyte Esterase Small H Urine RBC Tntc Urine WBC 10 - 15 Ur Epithelial Cells 6 - 8 Amorphous Sediment Few Urine Bacteria Large Urine Other Fiber Assessment & Plan - Assessment and Plan (Free Text) Assessment: 77 F with past medical history of HTN, dementia, S/P right hip replacement presents from [facility] (in the alf since Mar due to the hip surgery) for AMS and lethargy. Found to be in Hyperglycaemic Hyperosmolar Nonketotic Coma (HONK) and Hypernatremia. Neuro: - Altered and lethargic - baseline severe dementia - Neuro checks - F/u CT head CV: - maintain MAP > 65 - Hold any HTN medications Pulm: - maintain SPO2 > 90 % - 2L NC as needed GI: - NPO - F/u CT Abd & pelv - Elevated LFTs f/u acute hep panel - GI pxx Renal: - hypernatremia - Started on 1/2 NS @ 100 - 1 bolus of NS given in the ED - Monitor I and O - Repeat CMP at 11pm - Replete electrolytes as needed ID: - Febrile, and tachycardic - F/u Septic work up - ID consulted for recs - Vanc x 1 and cefepime started Endo: - Insulin ggt started - Q1H finger sticks - Cont to monitor Case and plan was reviewed and discussed with Dr Lincoln. <Carson Lincoln - Last Filed: 10/10/17 18:24> Meds - Medications Medications: Current Medications Insulin Human Regular 100 (units/ Sodium Chloride) 100 mls @ 4 mls/hr IV .Q24H PRN; Protocol; 4 UNITS/HR PRN Reason: TITRATE PER MD ORDER Sodium Chloride (Sodium Chloride 0.45%) 1,000 mls @ 100 mls/hr IV .Q10H JONNY Cefepime HCl (Maxipime 1gm) 1 gm in 100 mls @ 100 mls/hr IVPB Q12 JONNY PRN Reason: Protocol Results - Vital Signs Recent Vital Signs: Last Vital Signs Temp 101.8 F H 10/10/17 15:22 Pulse 120 H 10/10/17 16:33 Resp 30 H 10/10/17 16:33 BP 113/77 10/10/17 16:33 Pulse Ox 96 10/10/17 16:33 - Labs Result Diagrams: 10/10/17 16:00 10/10/17 16:00 Assessment & Plan - Assessment and Plan (Free Text) Assessment: Patient seen and examined on rounds with resident, agree with note with following additions/exceptions: Patient is 77yo female with PMhx of DM, severe dementia, malnutrition, presents from [facility] for AMS Pt found to be in HONK, hypernatremic, dehydrated, in OSWALDO Pt on exam minmally responsive, protecting airway, febrile, HD stable Pts chriss Misti at the bedside Hypernatremia HONK Dehydration OSWALDO AMS Severe Dementia Severe Sepsis Recommend: - supp o2 as neede - duonebs PRN - panculture, BCx, UCx, Procal - Obtain ID eval - Broad spectrum antibiotics, Cefepime, Vanco, renally dosed - IVF 1/2NS - NPO - Insulin drip - FS q1hr - check TSH, VitB12, Folate, RPR - CT head without contrast - check HgbA1C - BMP q6hr - renal sono - UA, Ulytes - monitor HH - GI ppx - DVT ppx - monitor in micu critical care time 35 minutes
[2017-10-10] MEDS ORDERED: Sodium Chloride 0.45% 1,000 ML IV SCH (18:00)
--- NOTE | 2017-10-10 18:52 | CT ---
PROCEDURE: CT HEAD WITHOUT CONTRAST. HISTORY: Altered mental status COMPARISON: None available. TECHNIQUE: Axial computed tomography images were obtained through the head/brain without intravenous contrast. Coronal and sagittal reconstructed images. Radiation dose: Total exam DLP = 917.54 mGy-cm. This CT exam was performed using one or more of the following dose reduction techniques: Automated exposure control, adjustment of the mA and/or kV according to patient size, and/or use of iterative reconstruction technique. FINDINGS: HEMORRHAGE: No intracranial hemorrhage. BRAIN: No mass effect or edema. Profound cortical atrophy and periventricular small vessel disease. VENTRICLES: Unremarkable. No hydrocephalus. CALVARIUM: Unremarkable. PARANASAL SINUSES: Carotid stable height and ethmoid air cell disease. MASTOID AIR CELLS: Unremarkable as visualized. No inflammatory changes. OTHER FINDINGS: None. IMPRESSION: No acute intracranial abnormalities. No significant findings to account for the clinical presentation.
--- NOTE | 2017-10-10 20:03 | CT ---
EXAM: CT Abdomen and Pelvis Without Intravenous Contrast EXAM DATE/TIME: 10/10/2017 4:52 PM CLINICAL HISTORY: 77 years old, female; Pain; Abdominal pain; Acute; Additional info: Sepsis TECHNIQUE: Axial computed tomography images of the abdomen and pelvis without intravenous contrast. All CT scans at this facility use one or more dose reduction techniques, viz.: automated exposure control; ma/kV adjustment per patient size (including targeted exams where dose is matched to indication; i.e. head); or iterative reconstruction technique. Coronal and sagittal reformatted images were created and reviewed. COMPARISON: Prior CT abdomen and pelvis of 2017-07-31 FINDINGS: LIMITATIONS: Streak artifact from the patient's arms and from an arthroplasty device. LUNG BASES: Findings highly suspicious for pneumonia in the left lung base. There are confluent areas of dense consolidation in the left lung base. ABDOMEN: LIVER: No acute abnormality of the liver identified. GALLBLADDER AND BILE DUCTS: Cholecystectomy clips. PANCREAS: No CT evidence of acute pancreatitis. SPLEEN: No acute abnormality of the spleen identified. ADRENALS: No acute abnormality of the adrenal glands identified. KIDNEYS AND URETERS: No acute abnormality of the kidneys seen. STOMACH AND BOWEL: Retained stool noted throughout the colon, with no evidence of a significant large bowel obstruction or fecal impaction. Otherwise, no significant abnormality of the bowel is identified. No evidence of bowel obstruction. PELVIS: APPENDIX: Normal appendix is not seen, however, there are no significant inflammatory changes visualized in the expected location of the appendix to suggest appendicitis. Recommend clinical correlation. BLADDER: Catheter and air noted within the bladder lumen. The bladder is decompressed. REPRODUCTIVE: Uterus is surgically absent. No evidence of large adnexal masses. ABDOMEN and PELVIS: INTRAPERITONEAL SPACE: No evidence of free intraperitoneal air or fluid. BONES/JOINTS: Arthroplasty device in the right hip. SOFT TISSUES: Scarring in the right hip soft tissues laterally, most likely related to the previous arthroplasty surgery. VASCULATURE: No evidence of abdominal aortic aneurysm. No evidence of periaortic hemorrhage. LYMPH NODES: No evidence of diffuse lymphadenopathy. IMPRESSION: - Findings highly suspicious for pneumonia in the left lung base. - No evidence of significant acute inflammatory process in the abdomen or pelvis. - See above for multiple remaining non-emergent findings.
[2017-10-10 21:56] LABS: VENOUS BLOOD GAS BASE EXCESS -0.7 mmol/L (0.0-2.0); VENOUS BLOOD GAS PO2 97 mm/Hg (30-55); VENOUS BLOOD PH 7.31 (7.32-7.43)
[2017-10-10] MEDS ORDERED: Cefepime 1gm in NS 100ml 1 GM/100 ML BAG IVPB SCH (22:00)
[2017-10-10] MEDS ORDERED: Albuterol-Ipratrop 3 mg / 0.5 (3 ml) UD IH PRN (23:20)
[2017-10-11] MEDS ORDERED: diltiaZEM IVPB 100mg in NS 100 ML IV PRN (00:42)
[2017-10-11 01:44] LABS: ALBUMIN 3.6 g/dL (3.0-4.8); CALCIUM 9.5 mg/dL (8.4-10.5)
[2017-10-11] MEDS: Albuterol-Ipratrop 3 mg / 0.5 (3 ml) UD IH SCH ×4 (02:30→20:35)
[2017-10-11 03:40] LABS: ALBUMIN 3.7 g/dL (3.0-4.8); CALCIUM 9.7 mg/dL (8.4-10.5)
[2017-10-11 04:13] LABS: ARTERIAL BLOOD GAS HCO3 19.7 mmol/L (21-28); ARTERIAL BLOOD GAS O2 SAT 62.8 % (95-98); ARTERIAL BLOOD GAS PCO2 34 mm/Hg (35-45); ARTERIAL BLOOD GAS PH 7.37 (7.35-7.45); ARTERIAL BLOOD GAS TCO2 20.7 mmol.L (22-28)
[2017-10-11] MEDS ORDERED: Heparin25000 units/250ml 1/2NS 25,000 UNITS/250 ML BAG IV PRN (04:25)
[2017-10-11] MEDS ORDERED: Vancomycin 1gm in NS 250ml 1 GM/250 ML BAG IVPB STA (04:28)
--- NOTE | 2017-10-11 05:05 | HP ---
DATE OF EXAM: HISTORY OF PRESENT ILLNESS: The patient is a 77-year-old, known to me from [facility]. Patient is a resident of there. I got a call yesterday that patient has hard stool and unable to pass stool, so she was given laxative and they were not noticed that she is short of breath or has fever. So I advised the nurse to give her magnesium citrate and watch for rectal bleeding, if she did not improve, should be sent to emergency room. I got a call this morning that patient does not look well. Her pulse ox is low so I advised them to bring her to send her to emergency room for further evaluation. According to the nursing staff, for last few days her oral intake has not been that great. She was more lethargic since morning and she was found to have temperature this morning also. There is no documentation of diarrhea however and she did not vomit. PAST MEDICAL HISTORY: She has significant past medical history for; 1. Profound dementia. 2. Hypertension. 3. History of rectal mass. 4. History of rectal bleeding and was found to have hemorrhoids. PAST SURGICAL HISTORY: Significant for right hip replacement after she had a fall and she had a fracture for right hip. She also had history of hypertension. ALLERGIES: SHE IS NOT ALLERGIC TO ANY MEDICATIONS. SOCIAL HISTORY: She is a [facility] resident and does not easily communicate. MEDICATIONS: In the residential, she is on Colace 200 daily, B12, ascorbic acid, diltiazem 60 mg every 12, lactulose 20 mg twice a day, famotidine, Celebrex, calcium, atorvastatin and aspirin. REVIEW OF SYSTEMS: Getting lethargy and fever. PHYSICAL EXAMINATION: GENERAL: She is lethargic, not communicative. VITAL SIGNS: Upon arrival, her temperature was 101.8 rectally, pulse 139, respirations 22, blood pressure 133/59 She was given Tylenol and temperature came down to 99.7, pulse is 118, respirations 32, . LUNGS: Bilateral fair airflow. No rhonchi or crackle. HEART: S1 and S2 audible. ABDOMEN: Soft, nontender. No rebound, no guarding. NEUROLOGIC: She is confused and disoriented. LABORATORY DATA: WBC is 8.3, hemoglobin 11.7, hematocrit 42, platelet 101. PT is 15.5, INR 1.35. Chemistry: Sodium 172, potassium 4.1, chloride 128, CO2 of 26, BUN 18, creatinine 2.2. Blood sugar of . Serum osmolarity 405, AST 62, ALT 102. LDH is 706. Urinalysis shows small leukocyte, albeit is too numerous to count. CT scan of the head unremarkable. ASSESSMENT: 1. Sepsis. 2. Hypernatremia. 3. Dehydration with acute renal failure. 4. History of dementia. PLAN: The patient is being admitted to ICU. Blood cultures and urine cultures were done. We will give IV fluid, empirically start her on antibiotics. ID consult, Dr. Terry; GI consult, Dr. Rust will be consulted. We will monitor her H and H and CBC in the a.m. and electrolytes. Davon Marie MD
[2017-10-11 05:15] LABS: GRAN # 4.66 (1.4-6.5); LYMPH # 2.7 (1.2-3.4); MEAN CELL VOLUME 99.3 fl (80.0-105.0); MEAN CORPUSCULAR HEMOGLOBIN 28.6 pg (25.0-35.0); MEAN CORPUSCULAR HGB CONC 28.8 g/dl (31.0-37.0); MONO # 0.2 (0.1-0.6); RBC 3.01 10^6/uL (3.5-6.1); RED CELL DISTRIBUTION WIDTH 14.6 % (11.5-14.5); WHITE BLOOD COUNT 7.5 10^3/ul (4.5-11.0)
[2017-10-11 05:25] LABS: VENOUS BLOOD GAS BASE EXCESS -11.4 mmol/L (0.0-2.0); VENOUS BLOOD GAS PO2 25 mm/Hg (30-55); VENOUS BLOOD PH 7.22 (7.32-7.43)
[2017-10-11 05:34] LABS: HEMOGLOBIN 8.6 g/dL (12.0-16.0)
[2017-10-11 05:39] LABS: INR 2.66 (0.93-1.08); PARTIAL THROMBOPLASTIN TIME 47.5 Seconds (25.1-36.5); PROTHROMBIN TIME 31.2 SECONDS (9.4-12.5)
[2017-10-11 05:49] LABS: ALB/GLOB RATIO 0.6 (1.1-1.8); ALBUMIN 1.2 g/dL (3.0-4.8); CALCIUM 4.6 mg/dL (8.4-10.5); TROPONIN I 0.12 ng/mL
--- NOTE | 2017-10-11 05:49 | CP.PCM.PN ---
Subjective - Date & Time of Evaluation Date of Evaluation: 10/11/17 Time of Evaluation: 05:42 - Subjective Subjective: On-call progress note: Dr. Lang Was called on patient for worsening blood pressure, increasing fever, and hypernatremia. Ordered Chest XR, blood cultures, urine cultures for septic work up and started on cefepime/vanc. Also ordered ABG with lactate to measure acid/base status - lactate is trending upwards, likely 2/2 tachycardia. Held lasix to maintain blood pressure. Given fever, tachycardia, and hypoxia, started on heparin drip in case of PE. Started bipap. Will obtain next ABG at 8A; follow up cultures. Objective - Vital Signs/Intake and Output Vital Signs (last 24 hours): Temp Pulse Resp BP Pulse Ox 99.7 F H 128 H 16 118/59 L 99 10/10/17 22:32 10/10/17 22:32 10/10/17 22:32 10/10/17 22:32 10/10/17 18:34 Intake and Output: 10/10/17 10/11/17 18:59 06:59 Intake Total 60 Balance 60 - Medications Medications: Current Medications Albuterol/Ipratropium (Duoneb 3 Mg/0.5 Mg (3 Ml) Ud) 3 ml IH [id number] [facility] Last Admin: 10/11/17 02:30 Dose: 3 ml Albuterol/Ipratropium (Duoneb 3 Mg/0.5 Mg (3 Ml) Ud) 3 ml IH Q2H PRN PRN Reason: Shortness of Breath Insulin Human Regular 100 (units/ Sodium Chloride) 100 mls @ 4 mls/hr IV .Q24H PRN; Protocol; 4 UNITS/HR PRN Reason: TITRATE PER MD ORDER Last Titration: 10/11/17 04:03 Dose: 1 units/hr, 1 mls/hr Sodium Chloride (Sodium Chloride 0.45%) 1,000 mls @ 100 mls/hr IV .Q10H [facility] Last Admin: 10/10/17 18:53 Dose: 100 mls/hr Meropenem 250 mg/ Sodium (Chloride) 100 mls @ 100 mls/hr IVPB Q12H JONNY PRN Reason: Protocol Stop: 10/19/17 22:46 Last Admin: 10/11/17 00:17 Dose: 100 mls/hr Heparin Sodium/Sodium Chloride (Heparin 24111 Units/250ml 1/2 Normal Saline) 25 ,000 units in 250 mls @ 6.94 mls/hr IV .Q24H PRN; Protocol; 18 UNITS/KG/HR PRN Reason: ADJUST RATE PER PROTOCOL Last Admin: 10/11/17 04:45 Dose: 18 units/kg/hr, 6.94 mls/hr Cefepime HCl 0.5 gm/ Sodium (Chloride) 100 mls @ 100 mls/hr IVPB Q24H JONNY PRN Reason: Protocol Vancomycin HCl (Vancomycin 1gm) 1 gm in 250 mls @ 167 mls/hr IVPB STAT STA PRN Reason: Protocol Stop: 10/11/17 05:57 Last Admin: 10/11/17 04:36 Dose: 167 mls/hr Pantoprazole Sodium (Protonix Inj) 40 mg IVP DAILY JONNY - Labs Labs: 10/11/17 04:45 10/11/17 03:00 PT 31.2 SECONDS (9.4-12.5) H 10/11/17 04:55 INR 2.66 (0.93-1.08) H 10/11/17 04:55 APTT 47.5 Seconds (25.1-36.5) H 10/11/17 04:55
--- NOTE | 2017-10-11 07:26 | PCM.RRT ---
LOFTSMAN Nurse Assessment - Situation Date: 10/11/17 Time LOFTSMAN was called: 06:00 LOFTSMAN Responder Arrival Time: 06:00 LOFTSMAN Location:: Critical Care Unit LOFTSMAN Called By: RN - IV IV Inserted during LOFTSMAN?: No - Respiratory Oxygen Delivery Method: BiPAP @% - Ventilator Settings Mode: PRVC - Neurological Status (Select all that apply): absent: Alert, Responsive, Oriented - Respiratory Oxygen Delivery Method: BiPAP @% (60) - Constitutional Appears: Chronically Ill - Head Head Exam: ATRAUMATIC, NORMAL INSPECTION, NORMOCEPHALIC - Eyes Eye Exam: EOMI, Normal appearance, PERRL - Respiratory Exam Respiratory Exam: Rales, NORMAL BREATHING PATTERN - Cardiovascular Exam Cardiovascular Exam: REGULAR RHYTHM - GI/Abdominal Exam GI & Abdominal Exam: Soft, Normal Bowel Sounds - Neurological Exam Neurological Exam: CN II-XII Intact - Extremities Exam Extremities Exam: Normal Inspection Plan - Assessment of Findings&Treatment Plan Code blue called Patient was found to have pulseless electrical activity. ACLS initiated a total of 10 min of chest compressions, 5 rounds of epi, half bag amiodarone, 1 bolus of fluids, and one amp of D50 until ROSC was achieved. Patient was intubated, central line placed. Levophed started. Chest XR will be ordered. Current Vitals: 150 HR, 92% O2, 75/34, 18 RR Patient's family notified. Patient will be signed out to day team for continued care.
[2017-10-11] MEDS ORDERED: Lactated Ringer's 1,000 ML IV SCH (07:30)
--- NOTE | 2017-10-11 07:33 | PCM.PROC ---
Procedures Attestation:: I certify that I have explained the specified Operation(s) or Procedure(s), risks, benefits and reasonable alternatives to the Patient and/or other person responsible. The opportunity was given to ask questions and all questions answered - Central Line Placement Left Femoral Triple Lumen Catheter Aseptic technique was employed throughout the procedure: Hand Hygiene done prior to procedure, Full sterile barriers (mask, hair cover, sterile gown, sterile gloves), Chloraprep Antiseptic: 2 minute prep for Femoral CVP Time Out Performed: Yes Pt. Placed on Pulse Ox Monitor: Yes Central Line Prep: Chlorhexidine-Alcohol Combination Ultrasound Used for Placement: Yes Central Line Lumen Inserted: triple Central Line Length: 20 cm Post Procedure: Sutured in Place, Good Blood Return, All Ports Aspirated, Flushed, Capped, Sterile Dressing Applied Secured by: Suture Post procedure dressing: Clear vapor permeable, Chlorhexidine disc (Biopatch) Post Procedure X-Ray: No Patient Tolerated Procedure: Well Immediate Complications: None
[2017-10-11] MEDS: NOREPINEPHRINE BIT/0.9 % NACL 4 MG/250 ML BAG IV PRN ×3 (07:37→20:30)
[2017-10-11] MEDS: Vasopressin 20 UNITS in Dextrose 5% In Water 100 ML IV SCH ×2 (08:20→18:52)
[2017-10-11 08:33] LABS: ARTERIAL BLOOD GAS HCO3 10.8 mmol/L (21-28); ARTERIAL BLOOD GAS HEMOGLOBIN 9.6 g/dL (11.7-17.4); ARTERIAL BLOOD GAS O2 CAPACITY 13.3 mL/dl (16-24); ARTERIAL BLOOD GAS O2 CONTENT 12.8 ML/dl (15-23); ARTERIAL BLOOD GAS PCO2 41 mm/Hg (35-45); ARTERIAL BLOOD GAS TCO2 12.1 mmol.L (22-28)
[2017-10-11 08:41] LABS: ARTERIAL BLOOD GAS PH 7.03 (7.35-7.45)
[2017-10-11] MEDS: Pantoprazole 40mg/100mL NS 40 MG/100 ML BAG IVPB SCH ×4 (08:45→22:34)
[2017-10-11] MEDS: Sodium Bicarbonate 8.4% 150 MEQ in Dextrose 5% In Water 1,000 ML IV SCH ×2 (09:04→21:20)
--- NOTE | 2017-10-11 09:25 | RAD ---
HISTORY: evaluate for pulmonary edema COMPARISON: 10/10/2017 FINDINGS: LUNGS: Bilateral lower lobe infiltrates are seen. There is a small left-sided pleural effusion PLEURA: Small left effusion CARDIOVASCULAR: Normal. OSSEOUS STRUCTURES: No significant abnormalities. VISUALIZED UPPER ABDOMEN: Normal. OTHER FINDINGS: None. IMPRESSION: New bilateral lower lobe infiltrates
--- NOTE | 2017-10-11 09:42 | RAD ---
HISTORY: S/P INTUBATION COMPARISON: 10/11/2017 FINDINGS: LUNGS: Increasing infiltrate in the right lower lobe and left upper lobe. PLEURA: No significant pleural effusion identified, no pneumothorax apparent. CARDIOVASCULAR: Normal. OSSEOUS STRUCTURES: No significant abnormalities. VISUALIZED UPPER ABDOMEN: Normal. OTHER FINDINGS: Endotracheal and nasogastric tubes in satisfactory position IMPRESSION: Increasing infiltrate in the right lower lobe and left upper lobe
--- NOTE | 2017-10-11 09:46 | CP.PCM.CON ---
History of Present Illness - History of Present Illness History of Present Illness: Palliative consult requested by Dr Imtiaz Lincoln copied to Dr Checo Marie Reason: Goals of care 77 year female resident of [facility] with a history of dementia, HTN and rectal bleeding who was sent from [place] with lethargy, shortness of breath, fever and constipation. [place] also reported that po intake had decreased over past few days. No diarrhea, nausea, vomiting reported. Labs; WBC normal but lactate elevated, NA 172, K2.1, Calcium 4.6, albumin 1.2, urine positive for protein, blood, leukocytes and bacteria. Was rapid response last night> hypotensive> hypernatremic> elevated lactate,O2 sats dropped requiring intubation. CT of abdomen pelvis showed probable pneumonia in left lung base, no other acute findings PMHX: HTN,HLD, dementia, constipation,OA rectal mass,anemia. PSH: R hip fracture s/p ORIF. Family History : Non contributory. Social History: Non smoker, no alcohol or drug use. Resident of [facility]. Advance Care Planning: The patient has an Advanced Directive,dated 2003. Her daughter Misti Salcido is named as health care POA Review of Systems: As per HPI, patient is intubated unable to obtain. Past Patient History - Infectious Disease Hx of Infectious Diseases: None - Past Social History Smoking Status: Never Smoked - CARDIAC Hx Hypertension: Yes - PULMONARY Hx Respiratory Disorders: No - NEUROLOGICAL Hx Neurological Disorder: Yes Hx Dementia: Yes - RENAL Hx Chronic Kidney Disease: No - ENDOCRINE/METABOLIC Hx Endocrine Disorders: No - HEMATOLOGICAL/ONCOLOGICAL Hx Blood Disorders: No - INTEGUMENTARY Hx Dermatological Problems: No - MUSCULOSKELETAL/RHEUMATOLOGICAL Hx Musculoskeletal Disorders: Yes Hx Falls: Yes Hx Osteoporosis: Yes Hx Unsteady Gait: Yes - GASTROINTESTINAL Hx Gastrointestinal Disorders: No - GENITOURINARY/GYNECOLOGICAL Hx Genitourinary Disorders: No Hx Incontinence: Yes - PSYCHIATRIC Hx Psychophysiologic Disorder: No - SURGICAL HISTORY Hx Joint Replacement: Yes (R hip) - ANESTHESIA Hx Anesthesia: Yes Hx Anesthesia Reactions: No Hx Malignant Hyperthermia: No Meds Allergies/Adverse Reactions: Allergies Allergy/AdvReac Type Severity Reaction Status Date / Time No Known Allergies Allergy Unverified 07/29/17 02:26 - Medications Medications: Current Medications Albuterol/Ipratropium (Duoneb 3 Mg/0.5 Mg (3 Ml) Ud) 3 ml IH [id number] JONNY Last Admin: 10/11/17 07:59 Dose: 3 ml Albuterol/Ipratropium (Duoneb 3 Mg/0.5 Mg (3 Ml) Ud) 3 ml IH Q2H PRN PRN Reason: Shortness of Breath Hydrocortisone Sodium Succinate (Solu-Cortef) 50 mg IVP Q6 JONNY Meropenem 250 mg/ Sodium (Chloride) 100 mls @ 100 mls/hr IVPB Q12H JONNY PRN Reason: Protocol Stop: 10/19/17 22:46 Last Admin: 10/11/17 00:17 Dose: 100 mls/hr Heparin Sodium/Sodium Chloride (Heparin 41761 Units/250ml 1/2 Normal Saline) 25 ,000 units in 250 mls @ 6.94 mls/hr IV .Q24H PRN; Protocol; 18 UNITS/KG/HR PRN Reason: ADJUST RATE PER PROTOCOL Last Admin: 10/11/17 04:45 Dose: 18 units/kg/hr, 6.94 mls/hr Cefepime HCl 0.5 gm/ Sodium (Chloride) 100 mls @ 100 mls/hr IVPB Q24H JONNY PRN Reason: Protocol Potassium Chloride (Potassium Chloride 10 Meq/100 Ml) 10 meq in 100 mls @ 50 mls/hr IVPB Q2H JONNY Stop: 10/11/17 11:59 Last Admin: 10/11/17 08:35 Dose: Not Given NOREPINEPHRINE BIT/0.9 % NACL (Levophed 4 Mg/ 250 Ml Ns Premixed) 4 mg in 250 mls @ 15 mls/hr IV .[id number] PRN; Protocol; 4 MCG/MIN PRN Reason: TITRATE PER MD ORDER Last Titration: 10/11/17 07:38 Dose: 25 mcg/min, 93.75 mls/hr Vasopressin 20 units/ Dextrose 101 mls @ 9.09 mls/hr IV .[id number] JONNY; 0.03 U/MIN PRN Reason: Protocol Last Admin: 10/11/17 08:20 Dose: 9.09 mls/hr Calcium Gluconate 2,000 mg/ (Sodium Chloride) 120 mls @ 60 mls/hr IV ONCE ONE Stop: 10/11/17 09:59 Last Admin: 10/11/17 08:33 Dose: 60 mls/hr Potassium Chloride (Potassium Chloride 20 Meq/100 Ml) 20 meq in 100 mls @ 50 mls/hr IVPB Q2H [facility] Stop: 10/11/17 14:14 Last Admin: 10/11/17 08:40 Dose: 50 mls/hr Pantoprazole Sodium (Protonix 40mg Ivpb) 40 mg in 100 mls @ 20 mls/hr IVPB .Q5H [facility] Last Admin: 10/11/17 08:45 Dose: 20 mls/hr Sodium Bicarbonate 150 meq/ (Dextrose) 1,150 mls @ 100 mls/hr IV .[id number] [facility] Last Admin: 10/11/17 09:04 Dose: 100 mls/hr Physical Exam - Constitutional Appears: Chronically Ill - Head Exam Head Exam: NORMAL INSPECTION - Eye Exam Eye Exam: Normal appearance, PERRL - ENT Exam ENT Exam: Mucous Membranes Moist - Respiratory Exam Respiratory Exam: Decreased Breath Sounds - Cardiovascular Exam Cardiovascular Exam: Tachycardia, +S1, +S2 - GI/Abdominal Exam GI & Abdominal Exam: Hypoactive Bowel Sounds, Soft - Extremities Exam Extremities exam: Positive for: pedal pulses present Additional comments: right leg internal rotation - Back Exam Back exam: NORMAL INSPECTION - Skin Skin Exam: Dry, Warm - Additional Findings Additional findings: palliative performance scale rating 10 % Results - Vital Signs Recent Vital Signs: Last Vital Signs Temp 104.2 F H 10/11/17 05:30 Pulse 115 H 10/11/17 05:30 Resp 22 10/11/17 05:30 BP 73/32 L 10/11/17 08:20 Pulse Ox 90 L 10/11/17 05:30 - Labs Result Diagrams: 10/11/17 04:45 10/11/17 04:45 Labs: Laboratory Results - last 24 hr 10/10/17 10/10/17 10/10/17 18:30 18:55 19:35 WBC RBC Hgb Hct MCV MCH MCHC RDW Plt Count MPV Gran % Lymph % (Auto) Davison % (Auto) Eos % (Auto) Baso % (Auto) Gran # Lymph # (Auto) Davison # (Auto) Eos # (Auto) Baso # (Auto) ESR PT INR APTT pCO2 pO2 97 H HCO3 ABG pH ABG Total CO2 ABG O2 Saturation ABG O2 Content ABG Base Excess ABG Hemoglobin ABG Carboxyhemoglobin POC ABG HHb (Measured) ABG Methemoglobin ABG O2 Capacity ABG Potassium VBG pH 7.31 L VBG pCO2 52.0 VBG HCO3 26.2 VBG Total CO2 27.8 VBG O2 Sat (Calc) 97.4 H VBG Base Excess -0.7 L VBG Potassium 5.5 H Hgb O2 Saturation Sodium 170.0 H* Chloride 134.0 H Glucose > 750 H* Lactate 3.3 H FiO2 21.0 Potassium Carbon Dioxide Anion Gap BUN Creatinine Est GFR ( Amer) Est GFR (Non-Af Amer) POC Glucose (mg/dL) > 500 H* Random Glucose Calcium Total Bilirubin AST ALT Alkaline Phosphatase Troponin I Total Protein Albumin Globulin Albumin/Globulin Ratio Procalcitonin 0.45 Arterial Blood Potassium Venous Blood Potassium 5.5 H 10/10/17 10/10/17 10/10/17 20:14 21:04 22:02 WBC RBC Hgb Hct MCV MCH MCHC RDW Plt Count MPV Gran % Lymph % (Auto) Davison % (Auto) Eos % (Auto) Baso % (Auto) Gran # Lymph # (Auto) Davison # (Auto) Eos # (Auto) Baso # (Auto) ESR PT INR APTT pCO2 pO2 HCO3 ABG pH ABG Total CO2 ABG O2 Saturation ABG O2 Content ABG Base Excess ABG Hemoglobin ABG Carboxyhemoglobin POC ABG HHb (Measured) ABG Methemoglobin ABG O2 Capacity ABG Potassium VBG pH VBG pCO2 VBG HCO3 VBG Total CO2 VBG O2 Sat (Calc) VBG Base Excess VBG Potassium Hgb O2 Saturation Sodium Chloride Glucose Lactate FiO2 Potassium Carbon Dioxide Anion Gap BUN Creatinine Est GFR ( Amer) Est GFR (Non-Af Amer) POC Glucose (mg/dL) > 500 H* 470 H* 469 H* Random Glucose Calcium Total Bilirubin AST ALT Alkaline Phosphatase Troponin I Total Protein Albumin Globulin Albumin/Globulin Ratio Procalcitonin Arterial Blood Potassium Venous Blood Potassium 10/10/17 10/10/17 10/11/17 23:00 23:50 00:28 WBC RBC Hgb Hct MCV MCH MCHC RDW Plt Count MPV Gran % Lymph % (Auto) Davison % (Auto) Eos % (Auto) Baso % (Auto) Gran # Lymph # (Auto) Davison # (Auto) Eos # (Auto) Baso # (Auto) ESR PT INR APTT pCO2 pO2 HCO3 ABG pH ABG Total CO2 ABG O2 Saturation ABG O2 Content ABG Base Excess ABG Hemoglobin ABG Carboxyhemoglobin POC ABG HHb (Measured) ABG Methemoglobin ABG O2 Capacity ABG Potassium VBG pH VBG pCO2 VBG HCO3 VBG Total CO2 VBG O2 Sat (Calc) VBG Base Excess VBG Potassium Hgb O2 Saturation Sodium 182 H* Chloride 136 H Glucose Lactate FiO2 Potassium 4.6 Carbon Dioxide 18 L Anion Gap 34 H BUN 82 H Creatinine 2.3 H Est GFR ( Amer) 25 Est GFR (Non-Af Amer) 21 POC Glucose (mg/dL) 392 H 361 H Random Glucose 447 H* D Calcium 9.5 Total Bilirubin 0.7 AST 89 H D ALT 90 H Alkaline Phosphatase 97 Troponin I Total Protein 7.3 Albumin 3.6 Globulin 3.7 Albumin/Globulin Ratio 1.0 L Procalcitonin Arterial Blood Potassium Venous Blood Potassium 10/11/17 10/11/17 10/11/17 02:23 03:00 03:18 WBC RBC Hgb Hct MCV MCH MCHC RDW Plt Count MPV Gran % Lymph % (Auto) Davison % (Auto) Eos % (Auto) Baso % (Auto) Gran # Lymph # (Auto) Davison # (Auto) Eos # (Auto) Baso # (Auto) ESR PT INR APTT pCO2 pO2 HCO3 ABG pH ABG Total CO2 ABG O2 Saturation ABG O2 Content ABG Base Excess ABG Hemoglobin ABG Carboxyhemoglobin POC ABG HHb (Measured) ABG Methemoglobin ABG O2 Capacity ABG Potassium VBG pH VBG pCO2 VBG HCO3 VBG Total CO2 VBG O2 Sat (Calc) VBG Base Excess VBG Potassium Hgb O2 Saturation Sodium 183 H* Chloride 136 H Glucose Lactate FiO2 Potassium 3.8 Carbon Dioxide 25 Anion Gap 26 H BUN 85 H Creatinine 2.4 H Est GFR ( Amer) 24 Est GFR (Non-Af Amer) 20 POC Glucose (mg/dL) 254 H 241 H Random Glucose 261 H Calcium 9.7 Total Bilirubin 0.8 AST 85 H ALT 95 H Alkaline Phosphatase 89 Troponin I Total Protein 7.6 Albumin 3.7 Globulin 3.8 Albumin/Globulin Ratio 1.0 L Procalcitonin Arterial Blood Potassium Venous Blood Potassium 10/11/17 10/11/1718 04:02 04:06 04:10 WBC RBC Hgb Hct MCV MCH MCHC RDW Plt Count MPV Gran % Lymph % (Auto) Davison % (Auto) Eos % (Auto) Baso % (Auto) Gran # Lymph # (Auto) Davison # (Auto) Eos # (Auto) Baso # (Auto) ESR PT INR APTT pCO2 34 L pO2 31.0 L* HCO3 19.7 L ABG pH 7.37 ABG Total CO2 20.7 L ABG O2 Saturation 62.8 L ABG O2 Content ABG Base Excess -4.8 L ABG Hemoglobin ABG Carboxyhemoglobin POC ABG HHb (Measured) ABG Methemoglobin ABG O2 Capacity ABG Potassium 3.9 VBG pH VBG pCO2 VBG HCO3 VBG Total CO2 VBG O2 Sat (Calc) VBG Base Excess VBG Potassium Hgb O2 Saturation Sodium 174.0 H* Chloride 142.0 H Glucose 142 H Lactate 7.2 H* FiO2 32.0 Potassium Carbon Dioxide Anion Gap BUN Creatinine Est GFR ( Amer) Est GFR (Non-Af Amer) POC Glucose (mg/dL) 143 H 136 H Random Glucose Calcium Total Bilirubin AST ALT Alkaline Phosphatase Troponin I Total Protein Albumin Globulin Albumin/Globulin Ratio Procalcitonin Arterial Blood Potassium 3.9 Venous Blood Potassium 10/11/17 10/11/17 10/11/17 04:45 04:45 04:55 WBC 7.5 RBC 3.01 L Hgb 8.6 L D Hct 29.9 L MCV 99.3 MCH 28.6 MCHC 28.8 L RDW 14.6 H Plt Count 106 L MPV 13.0 H Gran % 62.0 Lymph % (Auto) 36.0 H Davison % (Auto) 2.0 Eos % (Auto) 0.0 L Baso % (Auto) 0.0 Gran # 4.66 Lymph # (Auto) 2.7 Davison # (Auto) 0.2 Eos # (Auto) 0.0 Baso # (Auto) 0.00 ESR 5 PT 31.2 H INR 2.66 H APTT 47.5 H pCO2 pO2 HCO3 ABG pH ABG Total CO2 ABG O2 Saturation ABG O2 Content ABG Base Excess ABG Hemoglobin ABG Carboxyhemoglobin POC ABG HHb (Measured) ABG Methemoglobin ABG O2 Capacity ABG Potassium VBG pH VBG pCO2 VBG HCO3 VBG Total CO2 VBG O2 Sat (Calc) VBG Base Excess VBG Potassium Hgb O2 Saturation Sodium 172 H* Chloride 144 H Glucose Lactate FiO2 Potassium 2.1 L* D Carbon Dioxide 13 L Anion Gap 17 BUN 48 H Creatinine 1.3 H Est GFR ( Amer) 48 Est GFR (Non-Af Amer) 40 POC Glucose (mg/dL) Random Glucose 66 L Calcium 4.6 L* Total Bilirubin 0.8 AST 36 D ALT 53 Alkaline Phosphatase 30 L D Troponin I 0.12 D Total Protein 3.2 L Albumin 1.2 L Globulin 2.0 Albumin/Globulin Ratio 0.6 L Procalcitonin Arterial Blood Potassium Venous Blood Potassium 10/11/17 10/11/17 10/11/17 05:00 05:25 07:17 WBC RBC Hgb Hct MCV MCH MCHC RDW Plt Count MPV Gran % Lymph % (Auto) Davison % (Auto) Eos % (Auto) Baso % (Auto) Gran # Lymph # (Auto) Davison # (Auto) Eos # (Auto) Baso # (Auto) ESR PT INR APTT pCO2 pO2 25 L HCO3 ABG pH ABG Total CO2 ABG O2 Saturation ABG O2 Content ABG Base Excess ABG Hemoglobin ABG Carboxyhemoglobin POC ABG HHb (Measured) ABG Methemoglobin ABG O2 Capacity ABG Potassium VBG pH 7.22 L VBG pCO2 38.0 L VBG HCO3 15.6 L VBG Total CO2 16.8 L VBG O2 Sat (Calc) 41.8 VBG Base Excess -11.4 L VBG Potassium 2.3 L* Hgb O2 Saturation Sodium 168.0 H* Chloride 144.0 H Glucose 85 Lactate 6.2 H* FiO2 21.0 Potassium Carbon Dioxide Anion Gap BUN Creatinine Est GFR ( Amer) Est GFR (Non-Af Amer) POC Glucose (mg/dL) 133 H 155 H Random Glucose Calcium Total Bilirubin AST ALT Alkaline Phosphatase Troponin I Total Protein Albumin Globulin Albumin/Globulin Ratio Procalcitonin Arterial Blood Potassium Venous Blood Potassium 2.3 L* 10/11/17 10/11/17 07:58 08:20 WBC RBC Hgb Hct MCV MCH MCHC RDW Plt Count MPV Gran % Lymph % (Auto) Davison % (Auto) Eos % (Auto) Baso % (Auto) Gran # Lymph # (Auto) Davison # (Auto) Eos # (Auto) Baso # (Auto) ESR PT INR APTT pCO2 41 pO2 86.0 HCO3 10.8 L ABG pH 7.03 L* ABG Total CO2 12.1 L ABG O2 Saturation 96.0 ABG O2 Content 12.8 L ABG Base Excess -19.0 L ABG Hemoglobin 9.6 L ABG Carboxyhemoglobin 1.4 POC ABG HHb (Measured) 3.9 ABG Methemoglobin 0.7 ABG O2 Capacity 13.3 L ABG Potassium VBG pH VBG pCO2 VBG HCO3 VBG Total CO2 VBG O2 Sat (Calc) VBG Base Excess VBG Potassium Hgb O2 Saturation 94.0 L Sodium Chloride Glucose Lactate FiO2 100.0 Potassium Carbon Dioxide Anion Gap BUN Creatinine Est GFR ( Amer) Est GFR (Non-Af Amer) POC Glucose (mg/dL) 151 H Random Glucose Calcium Total Bilirubin AST ALT Alkaline Phosphatase Troponin I Total Protein Albumin Globulin Albumin/Globulin Ratio Procalcitonin Arterial Blood Potassium Venous Blood Potassium Assessment & Plan - Assessment and Plan (Free Text) Assessment: 77 year old female with history of HTN, dementia,rectal bleeding who is admitted with hypernatremia,hypokalemia, hypoalbunemia, probable pneumonia,UTI, sepsis, respiratory failure. The patient is intubated and requiring 2 pressor agents, NG tube draining coffee ground emseis. The patient has an advanced directive in which she states she does not want life prolonging manures if her condition is terminal or irreversible. Will follow along and meet with family to discuss goals of care based on their understanding of patients situation,progress and prognosis. I later met with daughter's Misti and Lucina, we discussed the patients wishes as defined in her Advance Directive. Daughters underhand that their mothers condition may not improve despite medical intervention. Daughters want to give treatment some time in order to see what happens. Daughters inferred that they intend to honor mother advance directive if her condition is terminal/ irreversible. Time spent with family in goals of care and advance care planning discussion, 30 minutes Plan: Sepsis: Arzola cultures, continue Merrem, ID recommendations. Hypernatremia: avoid additional IVF with saline. Hypertension: titrate vasopressin, norephinephrine. Hypokalemia: IV potassium replacement Sodium Bicarb. Pulmonary: Vent support, duonebs,solu cortef, monitor ABG's Goals of care and advance care planning.
[2017-10-11] MEDS ORDERED: Cefepime 0.5 GM in Sodium Chloride 0.9% 100 ML IVPB SCH (10:00)
--- NOTE | 2017-10-11 10:11 | US ---
HISTORY: Leg pain and swelling. Evaluate for DVT PHYSICIAN(S): Christofer Villarreal MD. TECHNIQUE: Duplex sonography and color-flow Doppler with graded compression were used to evaluate the deep venous systems of both lower extremities. The left common femoral vein and proximal left femoral vein were not evaluated due to bandages. FINDINGS: The visualized deep venous systems of both lower extremities are sonographically normal and compressible. Normal wave forms and augmentation are seen. There is no sonographic evidence for deep venous thrombosis in the visualized segments of both lower extremities. IMPRESSION: No sonographic evidence for deep venous thrombosis in the visualized segments of both lower extremities. Limited study on the left
--- NOTE | 2017-10-11 10:19 | CARD ---
APPROVED REPORT EKG Measurement Heart [id number] <Conclusion> Sinus tachycardia Tall Peaked P Waves Suggestive of Ch.Lung Disease. Non Specific ST_T Changes.
--- NOTE | 2017-10-11 10:58 | CARD ---
APPROVED REPORT EKG Measurement Heart [id number] <Conclusion> Sinus tachycardia Left axis deviation Low voltage QRS Cannot rule out Anterior infarct, age undetermined Abnormal ECG
[2017-10-11] MEDS ORDERED: Dextrose 50% SYRINGE Inj (50 ml) IVP ONE ×3 (11:44→14:17)
--- NOTE | 2017-10-11 11:49 | CP.CCUPN ---
<Soto Moura - Last Filed: 10/11/17 12:39> CCU Subjective - Physician Review Subjective (Free Text): Patient seen and examined at bedside. Patient currently intubated with PRVC 100 5 24 350 10/11/17 12:39 CCU Objective - Vital Signs / Intake & Output Vital Signs (Last 4 hours): Vital Signs BP 10/11/17 08:20 73/32 L Intake and Output (Last 8hrs): Intake & Output 10/10/17 10/11/17 10/11/17 22:59 06:59 14:59 Intake Total 10 60 50 Balance 10 60 50 Intake: IV 10 60 50 - Physical Exam Head: Positive for: Atraumatic, Normocephalic Pupils: Positive for: PERRL Extroacular Muscles: Positive for: EOMI Conjunctiva: Positive for: Normal Mouth: Positive for: Moist Mucous Membranes Neck: Positive for: Normal Range of Motion Respiratory/Chest: Positive for: Good Air Exchange, Rales. Negative for: Respiratory Distress, Accessory Muscle Use, Wheezes Cardiovascular: Positive for: Regular Rate and Rhythm, Normal S1, S2. Negative for: Murmurs Abdomen: Negative for: Tenderness, Distention, Peritoneal Signs Back: Positive for: Normal Inspection Upper Extremity: Positive for: Normal Inspection. Negative for: Cyanosis, Edema Lower Extremity: Positive for: Normal Inspection. Negative for: Edema Neurological: Positive for: GCS=15, CN II-XII Intact, Speech Normal Skin: Positive for: Warm, Dry, Normal Color. Negative for: Rashes Psychiatric: Positive for: Alert. Negative for: Oriented x 3 (oriented x 2) - Medications Active Medications: Active Medications Generic Name Dose Route Start Last Admin Trade Name Freq PRN Reason Stop Dose Admin Albuterol/Ipratropium 3 ml 10/11/17 02:00 10/11/17 07:59 Duoneb 3 Mg/0.5 Mg (3 Ml) Ud IH 3 ml [id number] JONNY Administration Albuterol/Ipratropium 3 ml 10/10/17 23:20 Duoneb 3 Mg/0.5 Mg (3 Ml) Ud IH Q2H PRN Shortness of Breath Hydrocortisone Sodium Succinate 50 mg 10/11/17 12:00 10/11/17 11:21 Solu-Cortef IVP 50 mg Q6 JONNY Administration Potassium Chloride 10 meq in 100 mls @ 50 mls/hr 10/11/17 06:00 10/11/17 11: 10 Potassium Chloride 10 Meq/100 Ml IVPB 10/11/17 11:59 Not Given Q2H JONNY NOREPINEPHRINE BIT/0.9 % NACL 4 mg in 250 mls @ 15 mls/hr 10/11/17 06:47 07:38 Levophed 4 Mg/ 250 Ml Ns Premixed IV 25 mcg/min .[id number] PRN 93.75 mls/hr TITRATE PER MD ORDER Titration Protocol 4 MCG/MIN Vasopressin 20 units/ Dextrose 101 mls @ 9.09 mls/hr 10/11/17 07:30 10/11/17 08:20 IV 9.09 mls/hr .[id number] JONNY Administration Protocol 0.03 U/MIN Potassium Chloride 20 meq in 100 mls @ 50 mls/hr 10/11/17 08:15 10/11/17 11: 19 Potassium Chloride 20 Meq/100 Ml IVPB 10/11/17 14:14 50 mls/hr Q2H JONNY Administration Pantoprazole Sodium 40 mg in 100 mls @ 20 mls/hr 10/11/17 08:15 10/11/17 08: 45 Protonix 40mg Ivpb IVPB 20 mls/hr .Q5H JONNY Administration Sodium Bicarbonate 150 meq/ 1,150 mls @ 100 mls/hr 10/11/17 08:45 10/11/17 09 :04 Dextrose IV 100 mls/hr .[id number] JONNY Administration Fentanyl Citrate 1,000 mcg in 100 mls @ 2 mls/hr 10/11/17 11:07 Fentanyl Citrate/Sodium Chloride 1 Mg/100 Ml IV .Q24H PRN TITRATE PER MD ORDER Protocol 20 MCG/HR Meropenem 50 mls @ 100 mls/hr 10/11/17 11:45 Merrem Iv 1 Gm Premix IVPB Q12 JONNY Protocol Doxycycline Hyclate 100 mg/ 100 mls @ 100 mls/hr 10/11/17 22:00 Sodium Chloride IVPB Q12 JONNY Protocol - Patient Studies Lab Studies: Lab Studies 10/11/17 10/11/17 10/11/17 Range/Units 08:20 07:58 07:17 WBC (4.5-11.0) 10^3/ul RBC (3.5-6.1) 10^6/uL Hgb (12.0-16.0) g/dL Hct (36.0-48.0) % MCV (80.0-105.0) fl MCH (25.0-35.0) pg MCHC (31.0-37.0) g/dl RDW (11.5-14.5) % Plt Count (120.0-450.0) 10^3/uL MPV (7.0-11.0) fl Gran % (50.0-68.0) % Lymph % (Auto) (22.0-35.0) % [place] % (Auto) (1.0-6.0) % Eos % (Auto) (1.5-5.0) % Baso % (Auto) (0.0-3.0) % Gran # (1.4-6.5) Lymph # (Auto) (1.2-3.4) [place] # (Auto) (0.1-0.6) Eos # (Auto) (0.0-0.7) Baso # (Auto) (0.0-2.0) K/mm3 ESR (0.0-20.0) mm/hr PT (9.4-12.5) SECONDS INR (0.93-1.08) APTT (25.1-36.5) Seconds pCO2 41 (35-45) mm/Hg pO2 86.0 (30-55) mm/Hg HCO3 10.8 L (21-28) mmol/L ABG pH 7.03 L* (7.35-7.45) ABG Total CO2 12.1 L (22-28) mmol.L ABG O2 Saturation 96.0 (95-98) % ABG O2 Content 12.8 L (15-23) ML/dl ABG Base Excess -19.0 L (-2.0-3.0) mmol/L ABG Hemoglobin 9.6 L (11.7-17.4) g/dL ABG Carboxyhemoglobin 1.4 (0.5-1.5) % POC ABG HHb (Measured) 3.9 (0-5) % ABG Methemoglobin 0.7 (0.0-3.0) % ABG O2 Capacity 13.3 L (16-24) mL/dl ABG Potassium (3.6-5.2) mmol/L VBG pH (7.32-7.43) VBG pCO2 (40-60) VBG HCO3 (21-28) mmol/l VBG Total CO2 (22-28) mmol.L VBG O2 Sat (Calc) (40-65) % VBG Base Excess (0.0-2.0) mmol/L VBG Potassium (3.6-5.2) mmol/L Hgb O2 Saturation 94.0 L (95.0-98.0) % Sodium (132-148) mmol/L Chloride (98-107) mmol/L Glucose (65-105) mg/dl Lactate (0.7-2.1) mmol/L FiO2 100.0 % Potassium (3.6-5.0) mmol/L Carbon Dioxide (21-33) mmol/L Anion Gap (10-20) BUN (7-21) mg/dL Creatinine (0.7-1.2) mg/dl Est GFR ( Amer) Est GFR (Non-Af Amer) POC Glucose (mg/dL) 151 H 155 H (65-110) mg/dL Random Glucose (70-110) mg/dL Calcium (8.4-10.5) mg/dL Total Bilirubin (0.2-1.3) mg/dL AST (14-36) U/L ALT (7-56) U/L Alkaline Phosphatase (38-126) U/L Troponin I ng/mL Total Protein (5.8-8.3) g/dL Albumin (3.0-4.8) g/dL Globulin gm/dL Albumin/Globulin Ratio (1.1-1.8) Procalcitonin (0.19-0.49) NG/ML Arterial Blood Potassium (3.6-5.2) mmol/L Venous Blood Potassium (3.6-5.2) mmol/L 10/11/17 10/11/17 10/11/17 Range/Units 05:25 05:00 04:55 WBC (4.5-11.0) 10^3/ul RBC (3.5-6.1) 10^6/uL Hgb (12.0-16.0) g/dL Hct (36.0-48.0) % MCV (80.0-105.0) fl MCH (25.0-35.0) pg MCHC (31.0-37.0) g/dl RDW (11.5-14.5) % Plt Count (120.0-450.0) 10^3/uL MPV (7.0-11.0) fl Gran % (50.0-68.0) % Lymph % (Auto) (22.0-35.0) % [place] % (Auto) (1.0-6.0) % Eos % (Auto) (1.5-5.0) % Baso % (Auto) (0.0-3.0) % Gran # (1.4-6.5) Lymph # (Auto) (1.2-3.4) [place] # (Auto) (0.1-0.6) Eos # (Auto) (0.0-0.7) Baso # (Auto) (0.0-2.0) K/mm3 ESR (0.0-20.0) mm/hr PT 31.2 H (9.4-12.5) SECONDS INR 2.66 H (0.93-1.08) APTT 47.5 H (25.1-36.5) Seconds pCO2 (35-45) mm/Hg pO2 25 L (30-55) mm/Hg HCO3 (21-28) mmol/L ABG pH (7.35-7.45) ABG Total CO2 (22-28) mmol.L ABG O2 Saturation (95-98) % ABG O2 Content (15-23) ML/dl ABG Base Excess (-2.0-3.0) mmol/L ABG Hemoglobin (11.7-17.4) g/dL ABG Carboxyhemoglobin (0.5-1.5) % POC ABG HHb (Measured) (0-5) % ABG Methemoglobin (0.0-3.0) % ABG O2 Capacity (16-24) mL/dl ABG Potassium (3.6-5.2) mmol/L VBG pH 7.22 L (7.32-7.43) VBG pCO2 38.0 L (40-60) VBG HCO3 15.6 L (21-28) mmol/l VBG Total CO2 16.8 L (22-28) mmol.L VBG O2 Sat (Calc) 41.8 (40-65) % VBG Base Excess -11.4 L (0.0-2.0) mmol/L VBG Potassium 2.3 L* (3.6-5.2) mmol/L Hgb O2 Saturation (95.0-98.0) % Sodium 168.0 H* (132-148) mmol/L Chloride 144.0 H (98-107) mmol/L Glucose 85 (65-105) mg/dl Lactate 6.2 H* (0.7-2.1) mmol/L FiO2 21.0 % Potassium (3.6-5.0) mmol/L Carbon Dioxide (21-33) mmol/L Anion Gap (10-20) BUN (7-21) mg/dL Creatinine (0.7-1.2) mg/dl Est GFR ( Amer) Est GFR (Non-Af Amer) POC Glucose (mg/dL) 133 H (65-110) mg/dL Random Glucose (70-110) mg/dL Calcium (8.4-10.5) mg/dL Total Bilirubin (0.2-1.3) mg/dL AST (14-36) U/L ALT (7-56) U/L Alkaline Phosphatase (38-126) U/L Troponin I ng/mL Total Protein (5.8-8.3) g/dL Albumin (3.0-4.8) g/dL Globulin gm/dL Albumin/Globulin Ratio (1.1-1.8) Procalcitonin (0.19-0.49) NG/ML Arterial Blood Potassium (3.6-5.2) mmol/L Venous Blood Potassium 2.3 L* (3.6-5.2) mmol/L 10/11/17 10/11/17 10/11/17 Range/Units 04:45 04:45 04:10 WBC 7.5 (4.5-11.0) 10^3/ul RBC 3.01 L (3.5-6.1) 10^6/uL Hgb 8.6 L D (12.0-16.0) g/dL Hct 29.9 L (36.0-48.0) % MCV 99.3 (80.0-105.0) fl MCH 28.6 (25.0-35.0) pg MCHC 28.8 L (31.0-37.0) g/dl RDW 14.6 H (11.5-14.5) % Plt Count 106 L (120.0-450.0) 10^3/uL MPV 13.0 H (7.0-11.0) fl Gran % 62.0 (50.0-68.0) % Lymph % (Auto) 36.0 H (22.0-35.0) % [place] % (Auto) 2.0 (1.0-6.0) % Eos % (Auto) 0.0 L (1.5-5.0) % Baso % (Auto) 0.0 (0.0-3.0) % Gran # 4.66 (1.4-6.5) Lymph # (Auto) 2.7 (1.2-3.4) [place] # (Auto) 0.2 (0.1-0.6) Eos # (Auto) 0.0 (0.0-0.7) Baso # (Auto) 0.00 (0.0-2.0) K/mm3 ESR 5 (0.0-20.0) mm/hr PT (9.4-12.5) SECONDS INR (0.93-1.08) APTT (25.1-36.5) Seconds pCO2 34 L (35-45) mm/Hg pO2 31.0 L* (30-55) mm/Hg HCO3 19.7 L (21-28) mmol/L ABG pH 7.37 (7.35-7.45) ABG Total CO2 20.7 L (22-28) mmol.L ABG O2 Saturation 62.8 L (95-98) % ABG O2 Content (15-23) ML/dl ABG Base Excess -4.8 L (-2.0-3.0) mmol/L ABG Hemoglobin (11.7-17.4) g/dL ABG Carboxyhemoglobin (0.5-1.5) % POC ABG HHb (Measured) (0-5) % ABG Methemoglobin (0.0-3.0) % ABG O2 Capacity (16-24) mL/dl ABG Potassium 3.9 (3.6-5.2) mmol/L VBG pH (7.32-7.43) VBG pCO2 (40-60) VBG HCO3 (21-28) mmol/l VBG Total CO2 (22-28) mmol.L VBG O2 Sat (Calc) (40-65) % VBG Base Excess (0.0-2.0) mmol/L VBG Potassium (3.6-5.2) mmol/L Hgb O2 Saturation (95.0-98.0) % Sodium 172 H* 174.0 H* (132-148) mmol/L Chloride 144 H 142.0 H (98-107) mmol/L Glucose 142 H (65-105) mg/dl Lactate 7.2 H* (0.7-2.1) mmol/L FiO2 32.0 % Potassium 2.1 L* D (3.6-5.0) mmol/L Carbon Dioxide 13 L (21-33) mmol/L Anion Gap 17 (10-20) BUN 48 H (7-21) mg/dL Creatinine 1.3 H (0.7-1.2) mg/dl Est GFR ( Amer) 48 Est GFR (Non-Af Amer) 40 POC Glucose (mg/dL) (65-110) mg/dL Random Glucose 66 L (70-110) mg/dL Calcium 4.6 L* (8.4-10.5) mg/dL Total Bilirubin 0.8 (0.2-1.3) mg/dL AST 36 D (14-36) U/L ALT 53 (7-56) U/L Alkaline Phosphatase 30 L D (38-126) U/L Troponin I 0.12 D ng/mL Total Protein 3.2 L (5.8-8.3) g/dL Albumin 1.2 L (3.0-4.8) g/dL Globulin 2.0 gm/dL Albumin/Globulin Ratio 0.6 L (1.1-1.8) Procalcitonin (0.19-0.49) NG/ML Arterial Blood Potassium 3.9 (3.6-5.2) mmol/L Venous Blood Potassium (3.6-5.2) mmol/L 04/10/11/17 10/11/17 Range/Units 04:06 04:02 03:18 WBC (4.5-11.0) 10^3/ul RBC (3.5-6.1) 10^6/uL Hgb (12.0-16.0) g/dL Hct (36.0-48.0) % MCV (80.0-105.0) fl MCH (25.0-35.0) pg MCHC (31.0-37.0) g/dl RDW (11.5-14.5) % Plt Count (120.0-450.0) 10^3/uL MPV (7.0-11.0) fl Gran % (50.0-68.0) % Lymph % (Auto) (22.0-35.0) % [place] % (Auto) (1.0-6.0) % Eos % (Auto) (1.5-5.0) % Baso % (Auto) (0.0-3.0) % Gran # (1.4-6.5) Lymph # (Auto) (1.2-3.4) [place] # (Auto) (0.1-0.6) Eos # (Auto) (0.0-0.7) Baso # (Auto) (0.0-2.0) K/mm3 ESR (0.0-20.0) mm/hr PT (9.4-12.5) SECONDS INR (0.93-1.08) APTT (25.1-36.5) Seconds pCO2 (35-45) mm/Hg pO2 (30-55) mm/Hg HCO3 (21-28) mmol/L ABG pH (7.35-7.45) ABG Total CO2 (22-28) mmol.L ABG O2 Saturation (95-98) % ABG O2 Content (15-23) ML/dl ABG Base Excess (-2.0-3.0) mmol/L ABG Hemoglobin (11.7-17.4) g/dL ABG Carboxyhemoglobin (0.5-1.5) % POC ABG HHb (Measured) (0-5) % ABG Methemoglobin (0.0-3.0) % ABG O2 Capacity (16-24) mL/dl ABG Potassium (3.6-5.2) mmol/L VBG pH (7.32-7.43) VBG pCO2 (40-60) VBG HCO3 (21-28) mmol/l VBG Total CO2 (22-28) mmol.L VBG O2 Sat (Calc) (40-65) % VBG Base Excess (0.0-2.0) mmol/L VBG Potassium (3.6-5.2) mmol/L Hgb O2 Saturation (95.0-98.0) % Sodium (132-148) mmol/L Chloride (98-107) mmol/L Glucose (65-105) mg/dl Lactate (0.7-2.1) mmol/L FiO2 % Potassium (3.6-5.0) mmol/L Carbon Dioxide (21-33) mmol/L Anion Gap (10-20) BUN (7-21) mg/dL Creatinine (0.7-1.2) mg/dl Est GFR ( Amer) Est GFR (Non-Af Amer) POC Glucose (mg/dL) 136 H 143 H 241 H (65-110) mg/dL Random Glucose (70-110) mg/dL Calcium (8.4-10.5) mg/dL Total Bilirubin (0.2-1.3) mg/dL AST (14-36) U/L ALT (7-56) U/L Alkaline Phosphatase (38-126) U/L Troponin I ng/mL Total Protein (5.8-8.3) g/dL Albumin (3.0-4.8) g/dL Globulin gm/dL Albumin/Globulin Ratio (1.1-1.8) Procalcitonin (0.19-0.49) NG/ML Arterial Blood Potassium (3.6-5.2) mmol/L Venous Blood Potassium (3.6-5.2) mmol/L 10/11/17 10/11/17 10/11/17 Range/Units 03:00 02:23 00:28 WBC (4.5-11.0) 10^3/ul RBC (3.5-6.1) 10^6/uL Hgb (12.0-16.0) g/dL Hct (36.0-48.0) % MCV (80.0-105.0) fl MCH (25.0-35.0) pg MCHC (31.0-37.0) g/dl RDW (11.5-14.5) % Plt Count (120.0-450.0) 10^3/uL MPV (7.0-11.0) fl Gran % (50.0-68.0) % Lymph % (Auto) (22.0-35.0) % [place] % (Auto) (1.0-6.0) % Eos % (Auto) (1.5-5.0) % Baso % (Auto) (0.0-3.0) % Gran # (1.4-6.5) Lymph # (Auto) (1.2-3.4) [place] # (Auto) (0.1-0.6) Eos # (Auto) (0.0-0.7) Baso # (Auto) (0.0-2.0) K/mm3 ESR (0.0-20.0) mm/hr PT (9.4-12.5) SECONDS INR (0.93-1.08) APTT (25.1-36.5) Seconds pCO2 (35-45) mm/Hg pO2 (30-55) mm/Hg HCO3 (21-28) mmol/L ABG pH (7.35-7.45) ABG Total CO2 (22-28) mmol.L ABG O2 Saturation (95-98) % ABG O2 Content (15-23) ML/dl ABG Base Excess (-2.0-3.0) mmol/L ABG Hemoglobin (11.7-17.4) g/dL ABG Carboxyhemoglobin (0.5-1.5) % POC ABG HHb (Measured) (0-5) % ABG Methemoglobin (0.0-3.0) % ABG O2 Capacity (16-24) mL/dl ABG Potassium (3.6-5.2) mmol/L VBG pH (7.32-7.43) VBG pCO2 (40-60) VBG HCO3 (21-28) mmol/l VBG Total CO2 (22-28) mmol.L VBG O2 Sat (Calc) (40-65) % VBG Base Excess (0.0-2.0) mmol/L VBG Potassium (3.6-5.2) mmol/L Hgb O2 Saturation (95.0-98.0) % Sodium 183 H* (132-148) mmol/L Chloride 136 H (98-107) mmol/L Glucose (65-105) mg/dl Lactate (0.7-2.1) mmol/L FiO2 % Potassium 3.8 (3.6-5.0) mmol/L Carbon Dioxide 25 (21-33) mmol/L Anion Gap 26 H (10-20) BUN 85 H (7-21) mg/dL Creatinine 2.4 H (0.7-1.2) mg/dl Est GFR ( Amer) 24 Est GFR (Non-Af Amer) 20 POC Glucose (mg/dL) 254 H 361 H (65-110) mg/dL Random Glucose 261 H (70-110) mg/dL Calcium 9.7 (8.4-10.5) mg/dL Total Bilirubin 0.8 (0.2-1.3) mg/dL AST 85 H (14-36) U/L ALT 95 H (7-56) U/L Alkaline Phosphatase 89 (38-126) U/L Troponin I ng/mL Total Protein 7.6 (5.8-8.3) g/dL Albumin 3.7 (3.0-4.8) g/dL Globulin 3.8 gm/dL Albumin/Globulin Ratio 1.0 L (1.1-1.8) Procalcitonin (0.19-0.49) NG/ML Arterial Blood Potassium (3.6-5.2) mmol/L Venous Blood Potassium (3.6-5.2) mmol/L 10/10/17 10/10/17 10/10/17 Range/Units 23:50 23:00 22:02 WBC (4.5-11.0) 10^3/ul RBC (3.5-6.1) 10^6/uL Hgb (12.0-16.0) g/dL Hct (36.0-48.0) % MCV (80.0-105.0) fl MCH (25.0-35.0) pg MCHC (31.0-37.0) g/dl RDW (11.5-14.5) % Plt Count (120.0-450.0) 10^3/uL MPV (7.0-11.0) fl Gran % (50.0-68.0) % Lymph % (Auto) (22.0-35.0) % [place] % (Auto) (1.0-6.0) % Eos % (Auto) (1.5-5.0) % Baso % (Auto) (0.0-3.0) % Gran # (1.4-6.5) Lymph # (Auto) (1.2-3.4) [place] # (Auto) (0.1-0.6) Eos # (Auto) (0.0-0.7) Baso # (Auto) (0.0-2.0) K/mm3 ESR (0.0-20.0) mm/hr PT (9.4-12.5) SECONDS INR (0.93-1.08) APTT (25.1-36.5) Seconds pCO2 (35-45) mm/Hg pO2 (30-55) mm/Hg HCO3 (21-28) mmol/L ABG pH (7.35-7.45) ABG Total CO2 (22-28) mmol.L ABG O2 Saturation (95-98) % ABG O2 Content (15-23) ML/dl ABG Base Excess (-2.0-3.0) mmol/L ABG Hemoglobin (11.7-17.4) g/dL ABG Carboxyhemoglobin (0.5-1.5) % POC ABG HHb (Measured) (0-5) % ABG Methemoglobin (0.0-3.0) % ABG O2 Capacity (16-24) mL/dl ABG Potassium (3.6-5.2) mmol/L VBG pH (7.32-7.43) VBG pCO2 (40-60) VBG HCO3 (21-28) mmol/l VBG Total CO2 (22-28) mmol.L VBG O2 Sat (Calc) (40-65) % VBG Base Excess (0.0-2.0) mmol/L VBG Potassium (3.6-5.2) mmol/L Hgb O2 Saturation (95.0-98.0) % Sodium 182 H* (132-148) mmol/L Chloride 136 H (98-107) mmol/L Glucose (65-105) mg/dl Lactate (0.7-2.1) mmol/L FiO2 % Potassium 4.6 (3.6-5.0) mmol/L Carbon Dioxide 18 L (21-33) mmol/L Anion Gap 34 H (10-20) BUN 82 H (7-21) mg/dL Creatinine 2.3 H (0.7-1.2) mg/dl Est GFR ( Amer) 25 Est GFR (Non-Af Amer) 21 POC Glucose (mg/dL) 392 H 469 H* (65-110) mg/dL Random Glucose 447 H* D (70-110) mg/dL Calcium 9.5 (8.4-10.5) mg/dL Total Bilirubin 0.7 (0.2-1.3) mg/dL AST 89 H D (14-36) U/L ALT 90 H (7-56) U/L Alkaline Phosphatase 97 (38-126) U/L Troponin I ng/mL Total Protein 7.3 (5.8-8.3) g/dL Albumin 3.6 (3.0-4.8) g/dL Globulin 3.7 gm/dL Albumin/Globulin Ratio 1.0 L (1.1-1.8) Procalcitonin (0.19-0.49) NG/ML Arterial Blood Potassium (3.6-5.2) mmol/L Venous Blood Potassium (3.6-5.2) mmol/L 10/10/17 10/10/17 10/10/17 Range/Units 21:04 20:14 19:35 WBC (4.5-11.0) 10^3/ul RBC (3.5-6.1) 10^6/uL Hgb (12.0-16.0) g/dL Hct (36.0-48.0) % MCV (80.0-105.0) fl MCH (25.0-35.0) pg MCHC (31.0-37.0) g/dl RDW (11.5-14.5) % Plt Count (120.0-450.0) 10^3/uL MPV (7.0-11.0) fl Gran % (50.0-68.0) % Lymph % (Auto) (22.0-35.0) % [place] % (Auto) (1.0-6.0) % Eos % (Auto) (1.5-5.0) % Baso % (Auto) (0.0-3.0) % Gran # (1.4-6.5) Lymph # (Auto) (1.2-3.4) [place] # (Auto) (0.1-0.6) Eos # (Auto) (0.0-0.7) Baso # (Auto) (0.0-2.0) K/mm3 ESR (0.0-20.0) mm/hr PT (9.4-12.5) SECONDS INR (0.93-1.08) APTT (25.1-36.5) Seconds pCO2 (35-45) mm/Hg pO2 (30-55) mm/Hg HCO3 (21-28) mmol/L ABG pH (7.35-7.45) ABG Total CO2 (22-28) mmol.L ABG O2 Saturation (95-98) % ABG O2 Content (15-23) ML/dl ABG Base Excess (-2.0-3.0) mmol/L ABG Hemoglobin (11.7-17.4) g/dL ABG Carboxyhemoglobin (0.5-1.5) % POC ABG HHb (Measured) (0-5) % ABG Methemoglobin (0.0-3.0) % ABG O2 Capacity (16-24) mL/dl ABG Potassium (3.6-5.2) mmol/L VBG pH (7.32-7.43) VBG pCO2 (40-60) VBG HCO3 (21-28) mmol/l VBG Total CO2 (22-28) mmol.L VBG O2 Sat (Calc) (40-65) % VBG Base Excess (0.0-2.0) mmol/L VBG Potassium (3.6-5.2) mmol/L Hgb O2 Saturation (95.0-98.0) % Sodium (132-148) mmol/L Chloride (98-107) mmol/L Glucose (65-105) mg/dl Lactate (0.7-2.1) mmol/L FiO2 % Potassium (3.6-5.0) mmol/L Carbon Dioxide (21-33) mmol/L Anion Gap (10-20) BUN (7-21) mg/dL Creatinine (0.7-1.2) mg/dl Est GFR ( Amer) Est GFR (Non-Af Amer) POC Glucose (mg/dL) 470 H* > 500 H* > 500 H* (65-110) mg/dL Random Glucose (70-110) mg/dL Calcium (8.4-10.5) mg/dL Total Bilirubin (0.2-1.3) mg/dL AST (14-36) U/L ALT (7-56) U/L Alkaline Phosphatase (38-126) U/L Troponin I ng/mL Total Protein (5.8-8.3) g/dL Albumin (3.0-4.8) g/dL Globulin gm/dL Albumin/Globulin Ratio (1.1-1.8) Procalcitonin (0.19-0.49) NG/ML Arterial Blood Potassium (3.6-5.2) mmol/L Venous Blood Potassium (3.6-5.2) mmol/L 10/10/17 10/10/17 Range/Units 18:55 18:30 WBC (4.5-11.0) 10^3/ul RBC (3.5-6.1) 10^6/uL Hgb (12.0-16.0) g/dL Hct (36.0-48.0) % MCV (80.0-105.0) fl MCH (25.0-35.0) pg MCHC (31.0-37.0) g/dl RDW (11.5-14.5) % Plt Count (120.0-450.0) 10^3/uL MPV (7.0-11.0) fl Gran % (50.0-68.0) % Lymph % (Auto) (22.0-35.0) % [place] % (Auto) (1.0-6.0) % Eos % (Auto) (1.5-5.0) % Baso % (Auto) (0.0-3.0) % Gran # (1.4-6.5) Lymph # (Auto) (1.2-3.4) [place] # (Auto) (0.1-0.6) Eos # (Auto) (0.0-0.7) Baso # (Auto) (0.0-2.0) K/mm3 ESR (0.0-20.0) mm/hr PT (9.4-12.5) SECONDS INR (0.93-1.08) APTT (25.1-36.5) Seconds pCO2 (35-45) mm/Hg pO2 97 H (30-55) mm/Hg HCO3 (21-28) mmol/L ABG pH (7.35-7.45) ABG Total CO2 (22-28) mmol.L ABG O2 Saturation (95-98) % ABG O2 Content (15-23) ML/dl ABG Base Excess (-2.0-3.0) mmol/L ABG Hemoglobin (11.7-17.4) g/dL ABG Carboxyhemoglobin (0.5-1.5) % POC ABG HHb (Measured) (0-5) % ABG Methemoglobin (0.0-3.0) % ABG O2 Capacity (16-24) mL/dl ABG Potassium (3.6-5.2) mmol/L VBG pH 7.31 L (7.32-7.43) VBG pCO2 52.0 (40-60) VBG HCO3 26.2 (21-28) mmol/l VBG Total CO2 27.8 (22-28) mmol.L VBG O2 Sat (Calc) 97.4 H (40-65) % VBG Base Excess -0.7 L (0.0-2.0) mmol/L VBG Potassium 5.5 H (3.6-5.2) mmol/L Hgb O2 Saturation (95.0-98.0) % Sodium 170.0 H* (132-148) mmol/L Chloride 134.0 H (98-107) mmol/L Glucose > 750 H* (65-105) mg/dl Lactate 3.3 H (0.7-2.1) mmol/L FiO2 21.0 % Potassium (3.6-5.0) mmol/L Carbon Dioxide (21-33) mmol/L Anion Gap (10-20) BUN (7-21) mg/dL Creatinine (0.7-1.2) mg/dl Est GFR ( Amer) Est GFR (Non-Af Amer) POC Glucose (mg/dL) (65-110) mg/dL Random Glucose (70-110) mg/dL Calcium (8.4-10.5) mg/dL Total Bilirubin (0.2-1.3) mg/dL AST (14-36) U/L ALT (7-56) U/L Alkaline Phosphatase (38-126) U/L Troponin I ng/mL Total Protein (5.8-8.3) g/dL Albumin (3.0-4.8) g/dL Globulin gm/dL Albumin/Globulin Ratio (1.1-1.8) Procalcitonin 0.45 (0.19-0.49) NG/ML Arterial Blood Potassium (3.6-5.2) mmol/L Venous Blood Potassium 5.5 H (3.6-5.2) mmol/L Laboratory Results - last 24 hr 10/10/17 10/10/17 10/10/17 18:30 18:55 19:35 WBC RBC Hgb Hct MCV MCH MCHC RDW Plt Count MPV Gran % Lymph % (Auto) [place] % (Auto) Eos % (Auto) Baso % (Auto) Gran # Lymph # (Auto) [place] # (Auto) Eos # (Auto) Baso # (Auto) ESR PT INR APTT pCO2 pO2 97 H HCO3 ABG pH ABG Total CO2 ABG O2 Saturation ABG O2 Content ABG Base Excess ABG Hemoglobin ABG Carboxyhemoglobin POC ABG HHb (Measured) ABG Methemoglobin ABG O2 Capacity ABG Potassium VBG pH 7.31 L VBG pCO2 52.0 VBG HCO3 26.2 VBG Total CO2 27.8 VBG O2 Sat (Calc) 97.4 H VBG Base Excess -0.7 L VBG Potassium 5.5 H Hgb O2 Saturation Sodium 170.0 H* Chloride 134.0 H Glucose > 750 H* Lactate 3.3 H FiO2 21.0 Potassium Carbon Dioxide Anion Gap BUN Creatinine Est GFR ( Amer) Est GFR (Non-Af Amer) POC Glucose (mg/dL) > 500 H* Random Glucose Calcium Total Bilirubin AST ALT Alkaline Phosphatase Troponin I Total Protein Albumin Globulin Albumin/Globulin Ratio Procalcitonin 0.45 Arterial Blood Potassium Venous Blood Potassium 5.5 H 10/10/17 10/10/17 10/10/17 20:14 21:04 22:02 WBC RBC Hgb Hct MCV MCH MCHC RDW Plt Count MPV Gran % Lymph % (Auto) [place] % (Auto) Eos % (Auto) Baso % (Auto) Gran # Lymph # (Auto) [place] # (Auto) Eos # (Auto) Baso # (Auto) ESR PT INR APTT pCO2 pO2 HCO3 ABG pH ABG Total CO2 ABG O2 Saturation ABG O2 Content ABG Base Excess ABG Hemoglobin ABG Carboxyhemoglobin POC ABG HHb (Measured) ABG Methemoglobin ABG O2 Capacity ABG Potassium VBG pH VBG pCO2 VBG HCO3 VBG Total CO2 VBG O2 Sat (Calc) VBG Base Excess VBG Potassium Hgb O2 Saturation Sodium Chloride Glucose Lactate FiO2 Potassium Carbon Dioxide Anion Gap BUN Creatinine Est GFR ( Amer) Est GFR (Non-Af Amer) POC Glucose (mg/dL) > 500 H* 470 H* 469 H* Random Glucose Calcium Total Bilirubin AST ALT Alkaline Phosphatase Troponin I Total Protein Albumin Globulin Albumin/Globulin Ratio Procalcitonin Arterial Blood Potassium Venous Blood Potassium 10/10/17 10/10/17 10/11/17 23:00 23:50 00:28 WBC RBC Hgb Hct MCV MCH MCHC RDW Plt Count MPV Gran % Lymph % (Auto) [place] % (Auto) Eos % (Auto) Baso % (Auto) Gran # Lymph # (Auto) [place] # (Auto) Eos # (Auto) Baso # (Auto) ESR PT INR APTT pCO2 pO2 HCO3 ABG pH ABG Total CO2 ABG O2 Saturation ABG O2 Content ABG Base Excess ABG Hemoglobin ABG Carboxyhemoglobin POC ABG HHb (Measured) ABG Methemoglobin ABG O2 Capacity ABG Potassium VBG pH VBG pCO2 VBG HCO3 VBG Total CO2 VBG O2 Sat (Calc) VBG Base Excess VBG Potassium Hgb O2 Saturation Sodium 182 H* Chloride 136 H Glucose Lactate FiO2 Potassium 4.6 Carbon Dioxide 18 L Anion Gap 34 H BUN 82 H Creatinine 2.3 H Est GFR ( Amer) 25 Est GFR (Non-Af Amer) 21 POC Glucose (mg/dL) 392 H 361 H Random Glucose 447 H* D Calcium 9.5 Total Bilirubin 0.7 AST 89 H D ALT 90 H Alkaline Phosphatase 97 Troponin I Total Protein 7.3 Albumin 3.6 Globulin 3.7 Albumin/Globulin Ratio 1.0 L Procalcitonin Arterial Blood Potassium Venous Blood Potassium 10/11/17 10/11/17 10/11/17 02:23 03:00 03:18 WBC RBC Hgb Hct MCV MCH MCHC RDW Plt Count MPV Gran % Lymph % (Auto) [place] % (Auto) Eos % (Auto) Baso % (Auto) Gran # Lymph # (Auto) [place] # (Auto) Eos # (Auto) Baso # (Auto) ESR PT INR APTT pCO2 pO2 HCO3 ABG pH ABG Total CO2 ABG O2 Saturation ABG O2 Content ABG Base Excess ABG Hemoglobin ABG Carboxyhemoglobin POC ABG HHb (Measured) ABG Methemoglobin ABG O2 Capacity ABG Potassium VBG pH VBG pCO2 VBG HCO3 VBG Total CO2 VBG O2 Sat (Calc) VBG Base Excess VBG Potassium Hgb O2 Saturation Sodium 183 H* Chloride 136 H Glucose Lactate FiO2 Potassium 3.8 Carbon Dioxide 25 Anion Gap 26 H BUN 85 H Creatinine 2.4 H Est GFR ( Amer) 24 Est GFR (Non-Af Amer) 20 POC Glucose (mg/dL) 254 H 241 H Random Glucose 261 H Calcium 9.7 Total Bilirubin 0.8 AST 85 H ALT 95 H Alkaline Phosphatase 89 Troponin I Total Protein 7.6 Albumin 3.7 Globulin 3.8 Albumin/Globulin Ratio 1.0 L Procalcitonin Arterial Blood Potassium Venous Blood Potassium 10/11/17 10/11/17 10/11/17 04:02 04:06 04:10 WBC RBC Hgb Hct MCV MCH MCHC RDW Plt Count MPV Gran % Lymph % (Auto) [place] % (Auto) Eos % (Auto) Baso % (Auto) Gran # Lymph # (Auto) [place] # (Auto) Eos # (Auto) Baso # (Auto) ESR PT INR APTT pCO2 34 L pO2 31.0 L* HCO3 19.7 L ABG pH 7.37 ABG Total CO2 20.7 L ABG O2 Saturation 62.8 L ABG O2 Content ABG Base Excess -4.8 L ABG Hemoglobin ABG Carboxyhemoglobin POC ABG HHb (Measured) ABG Methemoglobin ABG O2 Capacity ABG Potassium 3.9 VBG pH VBG pCO2 VBG HCO3 VBG Total CO2 VBG O2 Sat (Calc) VBG Base Excess VBG Potassium Hgb O2 Saturation Sodium 174.0 H* Chloride 142.0 H Glucose 142 H Lactate 7.2 H* FiO2 32.0 Potassium Carbon Dioxide Anion Gap BUN Creatinine Est GFR ( Amer) Est GFR (Non-Af Amer) POC Glucose (mg/dL) 143 H 136 H Random Glucose Calcium Total Bilirubin AST ALT Alkaline Phosphatase Troponin I Total Protein Albumin Globulin Albumin/Globulin Ratio Procalcitonin Arterial Blood Potassium 3.9 Venous Blood Potassium 10/11/17 10/11/17 10/11/17 04:45 04:45 04:55 WBC 7.5 RBC 3.01 L Hgb 8.6 L D Hct 29.9 L MCV 99.3 MCH 28.6 MCHC 28.8 L RDW 14.6 H Plt Count 106 L MPV 13.0 H Gran % 62.0 Lymph % (Auto) 36.0 H [place] % (Auto) 2.0 Eos % (Auto) 0.0 L Baso % (Auto) 0.0 Gran # 4.66 Lymph # (Auto) 2.7 [place] # (Auto) 0.2 Eos # (Auto) 0.0 Baso # (Auto) 0.00 ESR 5 PT 31.2 H INR 2.66 H APTT 47.5 H pCO2 pO2 HCO3 ABG pH ABG Total CO2 ABG O2 Saturation ABG O2 Content ABG Base Excess ABG Hemoglobin ABG Carboxyhemoglobin POC ABG HHb (Measured) ABG Methemoglobin ABG O2 Capacity ABG Potassium VBG pH VBG pCO2 VBG HCO3 VBG Total CO2 VBG O2 Sat (Calc) VBG Base Excess VBG Potassium Hgb O2 Saturation Sodium 172 H* Chloride 144 H Glucose Lactate FiO2 Potassium 2.1 L* D Carbon Dioxide 13 L Anion Gap 17 BUN 48 H Creatinine 1.3 H Est GFR ( Amer) 48 Est GFR (Non-Af Amer) 40 POC Glucose (mg/dL) Random Glucose 66 L Calcium 4.6 L* Total Bilirubin 0.8 AST 36 D ALT 53 Alkaline Phosphatase 30 L D Troponin I 0.12 D Total Protein 3.2 L Albumin 1.2 L Globulin 2.0 Albumin/Globulin Ratio 0.6 L Procalcitonin Arterial Blood Potassium Venous Blood Potassium 04/10/11/17 10/11/17 05:00 05:25 07:17 WBC RBC Hgb Hct MCV MCH MCHC RDW Plt Count MPV Gran % Lymph % (Auto) [place] % (Auto) Eos % (Auto) Baso % (Auto) Gran # Lymph # (Auto) [place] # (Auto) Eos # (Auto) Baso # (Auto) ESR PT INR APTT pCO2 pO2 25 L HCO3 ABG pH ABG Total CO2 ABG O2 Saturation ABG O2 Content ABG Base Excess ABG Hemoglobin ABG Carboxyhemoglobin POC ABG HHb (Measured) ABG Methemoglobin ABG O2 Capacity ABG Potassium VBG pH 7.22 L VBG pCO2 38.0 L VBG HCO3 15.6 L VBG Total CO2 16.8 L VBG O2 Sat (Calc) 41.8 VBG Base Excess -11.4 L VBG Potassium 2.3 L* Hgb O2 Saturation Sodium 168.0 H* Chloride 144.0 H Glucose 85 Lactate 6.2 H* FiO2 21.0 Potassium Carbon Dioxide Anion Gap BUN Creatinine Est GFR ( Amer) Est GFR (Non-Af Amer) POC Glucose (mg/dL) 133 H 155 H Random Glucose Calcium Total Bilirubin AST ALT Alkaline Phosphatase Troponin I Total Protein Albumin Globulin Albumin/Globulin Ratio Procalcitonin Arterial Blood Potassium Venous Blood Potassium 2.3 L* 10/11/17 10/11/17 07:58 08:20 WBC RBC Hgb Hct MCV MCH MCHC RDW Plt Count MPV Gran % Lymph % (Auto) [place] % (Auto) Eos % (Auto) Baso % (Auto) Gran # Lymph # (Auto) [place] # (Auto) Eos # (Auto) Baso # (Auto) ESR PT INR APTT pCO2 41 pO2 86.0 HCO3 10.8 L ABG pH 7.03 L* ABG Total CO2 12.1 L ABG O2 Saturation 96.0 ABG O2 Content 12.8 L ABG Base Excess -19.0 L ABG Hemoglobin 9.6 L ABG Carboxyhemoglobin 1.4 POC ABG HHb (Measured) 3.9 ABG Methemoglobin 0.7 ABG O2 Capacity 13.3 L ABG Potassium VBG pH VBG pCO2 VBG HCO3 VBG Total CO2 VBG O2 Sat (Calc) VBG Base Excess VBG Potassium Hgb O2 Saturation 94.0 L Sodium Chloride Glucose Lactate FiO2 100.0 Potassium Carbon Dioxide Anion Gap BUN Creatinine Est GFR ( Amer) Est GFR (Non-Af Amer) POC Glucose (mg/dL) 151 H Random Glucose Calcium Total Bilirubin AST ALT Alkaline Phosphatase Troponin I Total Protein Albumin Globulin Albumin/Globulin Ratio Procalcitonin Arterial Blood Potassium Venous Blood Potassium EKG/Cardiology Studies: Cardiology / EKG Studies 10/11/17 03:30 EKG [ELECTROCARDIOGRAM] Stat Comment: Reason For Exam: tachycardia Fingerstick Blood Sugar Results: 812 Review of Systems - Review of Systems Systems not reviewed;Unavailable: Intubated Assessment/Plan - Assessment and Plan (Free Text) Assessment: 77 F with past medical history of HTN, dementia, S/P right hip replacement presents from [facility] (in the assisted since Mar due to the hip surgery) for AMS and lethargy. Found to be in Hyperglycemic Hyperosmolar Nonketotic Coma (HONK) and Hypernatremia. Neuro: -Sedated with fentanyl -Baseline severe dementia -Continue with Neuro checks -CT head negative for ICH CV: -Maintain MAP > 65 -Continue to hold HTN medications -Continue with levophed and vasopressin Pulm: -Maintain SPO2 > 90 % -Intubated, sedated with Fentanyl, PRVC settings 100 5 24 350 -Follow up with repeat ABG shock panel -Continue with kacie GI: -OG tube in place -CT abdomen reveals pneumonia in left lung base -Acute hep panel still pending; will follow up -Protonix Drip started Renal: -Monitor I&O -Monitor and replete electrolytes as needed -Caclium gluconate given to replete hypocalcemia -Potassium chloride given to replete hypokalemia -Sodium bicarb drip started -Follow up with repeat BMP ID: -Procal 0.45 -ID consulted for recs -Continue with Merrem as per ID -Follow up pancultures Endo: -HgA1C ordered -Maintain euglycemia and normothermia -Consider endo consult Hematologic -H&H stable -Heparin drip discontinued <Carson Lincoln - Last Filed: 10/11/17 12:59> CCU Objective - Vital Signs / Intake & Output Intake and Output (Last 8hrs): Intake & Output 10/10/17 10/11/17 10/11/17 22:59 06:59 14:59 Intake Total 10 60 250 Balance 10 60 250 Intake: IV 10 60 250 - Medications Active Medications: Active Medications Generic Name Dose Route Start Last Admin Trade Name Freq PRN Reason Stop Dose Admin Albuterol/Ipratropium 3 ml 10/11/17 02:00 10/11/17 07:59 Duoneb 3 Mg/0.5 Mg (3 Ml) Ud IH 3 ml [id number] JONNY Administration Albuterol/Ipratropium 3 ml 10/10/17 23:20 Duoneb 3 Mg/0.5 Mg (3 Ml) Ud IH Q2H PRN Shortness of Breath Hydrocortisone Sodium Succinate 50 mg 10/11/17 12:00 10/11/17 11:21 Solu-Cortef IVP 50 mg Q6 JONNY Administration NOREPINEPHRINE BIT/0.9 % NACL 4 mg in 250 mls @ 15 mls/hr 10/11/17 06:47 12:41 Levophed 4 Mg/ 250 Ml Ns Premixed IV 25 mcg/min .[id number] PRN 93.75 mls/hr TITRATE PER MD ORDER Administration Protocol 4 MCG/MIN Vasopressin 20 units/ Dextrose 101 mls @ 9.09 mls/hr 10/11/17 07:30 10/11/17 08:20 IV 9.09 mls/hr .[id number] JONNY Administration Protocol 0.03 U/MIN Potassium Chloride 20 meq in 100 mls @ 50 mls/hr 10/11/17 08:15 10/11/17 12: 40 Potassium Chloride 20 Meq/100 Ml IVPB 10/11/17 14:14 50 mls/hr Q2H JONNY Administration Pantoprazole Sodium 40 mg in 100 mls @ 20 mls/hr 10/11/17 08:15 10/11/17 12: 49 Protonix 40mg Ivpb IVPB 20 mls/hr .Q5H JONNY Administration Sodium Bicarbonate 150 meq/ 1,150 mls @ 100 mls/hr 10/11/17 08:45 10/11/17 09 :04 Dextrose IV 100 mls/hr .[id number] JONNY Administration Fentanyl Citrate 1,000 mcg in 100 mls @ 2 mls/hr 10/11/17 11:07 10/11/17 11: 58 Fentanyl Citrate/Sodium Chloride 1 Mg/100 Ml IV 20 mcg/hr .Q24H PRN 2 mls/hr TITRATE PER MD ORDER Administration Protocol 20 MCG/HR Meropenem 50 mls @ 100 mls/hr 10/11/17 11:45 10/11/17 12:43 Merrem Iv 1 Gm Premix IVPB 100 mls/hr Q12 JONNY Administration Protocol Doxycycline Hyclate 100 mg/ 100 mls @ 100 mls/hr 10/11/17 22:00 Sodium Chloride IVPB Q12 [facility] Protocol - Patient Studies Lab Studies: Lab Studies 10/11/17 10/11/17 10/11/17 Range/Units 08:20 07:58 07:17 WBC (4.5-11.0) 10^3/ul RBC (3.5-6.1) 10^6/uL Hgb (12.0-16.0) g/dL Hct (36.0-48.0) % MCV (80.0-105.0) fl MCH (25.0-35.0) pg MCHC (31.0-37.0) g/dl RDW (11.5-14.5) % Plt Count (120.0-450.0) 10^3/uL MPV (7.0-11.0) fl Gran % (50.0-68.0) % Lymph % (Auto) (22.0-35.0) % [place] % (Auto) (1.0-6.0) % Eos % (Auto) (1.5-5.0) % Baso % (Auto) (0.0-3.0) % Gran # (1.4-6.5) Lymph # (Auto) (1.2-3.4) [place] # (Auto) (0.1-0.6) Eos # (Auto) (0.0-0.7) Baso # (Auto) (0.0-2.0) K/mm3 ESR (0.0-20.0) mm/hr PT (9.4-12.5) SECONDS INR (0.93-1.08) APTT (25.1-36.5) Seconds pCO2 41 (35-45) mm/Hg pO2 86.0 (30-55) mm/Hg HCO3 10.8 L (21-28) mmol/L ABG pH 7.03 L* (7.35-7.45) ABG Total CO2 12.1 L (22-28) mmol.L ABG O2 Saturation 96.0 (95-98) % ABG O2 Content 12.8 L (15-23) ML/dl ABG Base Excess -19.0 L (-2.0-3.0) mmol/L ABG Hemoglobin 9.6 L (11.7-17.4) g/dL ABG Carboxyhemoglobin 1.4 (0.5-1.5) % POC ABG HHb (Measured) 3.9 (0-5) % ABG Methemoglobin 0.7 (0.0-3.0) % ABG O2 Capacity 13.3 L (16-24) mL/dl ABG Potassium (3.6-5.2) mmol/L VBG pH (7.32-7.43) VBG pCO2 (40-60) VBG HCO3 (21-28) mmol/l VBG Total CO2 (22-28) mmol.L VBG O2 Sat (Calc) (40-65) % VBG Base Excess (0.0-2.0) mmol/L VBG Potassium (3.6-5.2) mmol/L Hgb O2 Saturation 94.0 L (95.0-98.0) % Sodium (132-148) mmol/L Chloride (98-107) mmol/L Glucose (65-105) mg/dl Lactate (0.7-2.1) mmol/L FiO2 100.0 % Potassium (3.6-5.0) mmol/L Carbon Dioxide (21-33) mmol/L Anion Gap (10-20) BUN (7-21) mg/dL Creatinine (0.7-1.2) mg/dl Est GFR ( Amer) Est GFR (Non-Af Amer) POC Glucose (mg/dL) 151 H 155 H (65-110) mg/dL Random Glucose (70-110) mg/dL Calcium (8.4-10.5) mg/dL Total Bilirubin (0.2-1.3) mg/dL AST (14-36) U/L ALT (7-56) U/L Alkaline Phosphatase (38-126) U/L Troponin I ng/mL C-Reactive Protein (0.0-9.9) mg/L Total Protein (5.8-8.3) g/dL Albumin (3.0-4.8) g/dL Globulin gm/dL Albumin/Globulin Ratio (1.1-1.8) Procalcitonin (0.19-0.49) NG/ML Arterial Blood Potassium (3.6-5.2) mmol/L Venous Blood Potassium (3.6-5.2) mmol/L Hep Bs Antigen (NEGATIVE) 10/11/17 10/11/17 10/11/17 Range/Units 05:25 05:00 04:55 WBC (4.5-11.0) 10^3/ul RBC (3.5-6.1) 10^6/uL Hgb (12.0-16.0) g/dL Hct (36.0-48.0) % MCV (80.0-105.0) fl MCH (25.0-35.0) pg MCHC (31.0-37.0) g/dl RDW (11.5-14.5) % Plt Count (120.0-450.0) 10^3/uL MPV (7.0-11.0) fl Gran % (50.0-68.0) % Lymph % (Auto) (22.0-35.0) % [place] % (Auto) (1.0-6.0) % Eos % (Auto) (1.5-5.0) % Baso % (Auto) (0.0-3.0) % Gran # (1.4-6.5) Lymph # (Auto) (1.2-3.4) [place] # (Auto) (0.1-0.6) Eos # (Auto) (0.0-0.7) Baso # (Auto) (0.0-2.0) K/mm3 ESR (0.0-20.0) mm/hr PT 31.2 H (9.4-12.5) SECONDS INR 2.66 H (0.93-1.08) APTT 47.5 H (25.1-36.5) Seconds pCO2 (35-45) mm/Hg pO2 25 L (30-55) mm/Hg HCO3 (21-28) mmol/L ABG pH (7.35-7.45) ABG Total CO2 (22-28) mmol.L ABG O2 Saturation (95-98) % ABG O2 Content (15-23) ML/dl ABG Base Excess (-2.0-3.0) mmol/L ABG Hemoglobin (11.7-17.4) g/dL ABG Carboxyhemoglobin (0.5-1.5) % POC ABG HHb (Measured) (0-5) % ABG Methemoglobin (0.0-3.0) % ABG O2 Capacity (16-24) mL/dl ABG Potassium (3.6-5.2) mmol/L VBG pH 7.22 L (7.32-7.43) VBG pCO2 38.0 L (40-60) VBG HCO3 15.6 L (21-28) mmol/l VBG Total CO2 16.8 L (22-28) mmol.L VBG O2 Sat (Calc) 41.8 (40-65) % VBG Base Excess -11.4 L (0.0-2.0) mmol/L VBG Potassium 2.3 L* (3.6-5.2) mmol/L Hgb O2 Saturation (95.0-98.0) % Sodium 168.0 H* (132-148) mmol/L Chloride 144.0 H (98-107) mmol/L Glucose 85 (65-105) mg/dl Lactate 6.2 H* (0.7-2.1) mmol/L FiO2 21.0 % Potassium (3.6-5.0) mmol/L Carbon Dioxide (21-33) mmol/L Anion Gap (10-20) BUN (7-21) mg/dL Creatinine (0.7-1.2) mg/dl Est GFR ( Amer) Est GFR (Non-Af Amer) POC Glucose (mg/dL) 133 H (65-110) mg/dL Random Glucose (70-110) mg/dL Calcium (8.4-10.5) mg/dL Total Bilirubin (0.2-1.3) mg/dL AST (14-36) U/L ALT (7-56) U/L Alkaline Phosphatase (38-126) U/L Troponin I ng/mL C-Reactive Protein (0.0-9.9) mg/L Total Protein (5.8-8.3) g/dL Albumin (3.0-4.8) g/dL Globulin gm/dL Albumin/Globulin Ratio (1.1-1.8) Procalcitonin (0.19-0.49) NG/ML Arterial Blood Potassium (3.6-5.2) mmol/L Venous Blood Potassium 2.3 L* (3.6-5.2) mmol/L Hep Bs Antigen (NEGATIVE) 10/11/17 10/11/17 10/11/17 Range/Units 04:45 04:45 04:45 WBC 7.5 (4.5-11.0) 10^3/ul RBC 3.01 L (3.5-6.1) 10^6/uL Hgb 8.6 L D (12.0-16.0) g/dL Hct 29.9 L (36.0-48.0) % MCV 99.3 (80.0-105.0) fl MCH 28.6 (25.0-35.0) pg MCHC 28.8 L (31.0-37.0) g/dl RDW 14.6 H (11.5-14.5) % Plt Count 106 L (120.0-450.0) 10^3/uL MPV 13.0 H (7.0-11.0) fl Gran % 62.0 (50.0-68.0) % Lymph % (Auto) 36.0 H (22.0-35.0) % [place] % (Auto) 2.0 (1.0-6.0) % Eos % (Auto) 0.0 L (1.5-5.0) % Baso % (Auto) 0.0 (0.0-3.0) % Gran # 4.66 (1.4-6.5) Lymph # (Auto) 2.7 (1.2-3.4) [place] # (Auto) 0.2 (0.1-0.6) Eos # (Auto) 0.0 (0.0-0.7) Baso # (Auto) 0.00 (0.0-2.0) K/mm3 ESR 5 (0.0-20.0) mm/hr PT (9.4-12.5) SECONDS INR (0.93-1.08) APTT (25.1-36.5) Seconds pCO2 (35-45) mm/Hg pO2 (30-55) mm/Hg HCO3 (21-28) mmol/L ABG pH (7.35-7.45) ABG Total CO2 (22-28) mmol.L ABG O2 Saturation (95-98) % ABG O2 Content (15-23) ML/dl ABG Base Excess (-2.0-3.0) mmol/L ABG Hemoglobin (11.7-17.4) g/dL ABG Carboxyhemoglobin (0.5-1.5) % POC ABG HHb (Measured) (0-5) % ABG Methemoglobin (0.0-3.0) % ABG O2 Capacity (16-24) mL/dl ABG Potassium (3.6-5.2) mmol/L VBG pH (7.32-7.43) VBG pCO2 (40-60) VBG HCO3 (21-28) mmol/l VBG Total CO2 (22-28) mmol.L VBG O2 Sat (Calc) (40-65) % VBG Base Excess (0.0-2.0) mmol/L VBG Potassium (3.6-5.2) mmol/L Hgb O2 Saturation (95.0-98.0) % Sodium 172 H* (132-148) mmol/L Chloride 144 H (98-107) mmol/L Glucose (65-105) mg/dl Lactate (0.7-2.1) mmol/L FiO2 % Potassium 2.1 L* D (3.6-5.0) mmol/L Carbon Dioxide 13 L (21-33) mmol/L Anion Gap 17 (10-20) BUN 48 H (7-21) mg/dL Creatinine 1.3 H (0.7-1.2) mg/dl Est GFR ( Amer) 48 Est GFR (Non-Af Amer) 40 POC Glucose (mg/dL) (65-110) mg/dL Random Glucose 66 L (70-110) mg/dL Calcium 4.6 L* (8.4-10.5) mg/dL Total Bilirubin 0.8 (0.2-1.3) mg/dL AST 36 D (14-36) U/L ALT 53 (7-56) U/L Alkaline Phosphatase 30 L D (38-126) U/L Troponin I 0.12 D ng/mL C-Reactive Protein 67.60 H (0.0-9.9) mg/L Total Protein 3.2 L (5.8-8.3) g/dL Albumin 1.2 L (3.0-4.8) g/dL Globulin 2.0 gm/dL Albumin/Globulin Ratio 0.6 L (1.1-1.8) Procalcitonin (0.19-0.49) NG/ML Arterial Blood Potassium (3.6-5.2) mmol/L Venous Blood Potassium (3.6-5.2) mmol/L Hep Bs Antigen (NEGATIVE) 10/11/17 10/11/17 10/11/17 Range/Units 04:45 04:10 04:06 WBC (4.5-11.0) 10^3/ul RBC (3.5-6.1) 10^6/uL Hgb (12.0-16.0) g/dL Hct (36.0-48.0) % MCV (80.0-105.0) fl MCH (25.0-35.0) pg MCHC (31.0-37.0) g/dl RDW (11.5-14.5) % Plt Count (120.0-450.0) 10^3/uL MPV (7.0-11.0) fl Gran % (50.0-68.0) % Lymph % (Auto) (22.0-35.0) % [place] % (Auto) (1.0-6.0) % Eos % (Auto) (1.5-5.0) % Baso % (Auto) (0.0-3.0) % Gran # (1.4-6.5) Lymph # (Auto) (1.2-3.4) [place] # (Auto) (0.1-0.6) Eos # (Auto) (0.0-0.7) Baso # (Auto) (0.0-2.0) K/mm3 ESR (0.0-20.0) mm/hr PT (9.4-12.5) SECONDS INR (0.93-1.08) APTT (25.1-36.5) Seconds pCO2 34 L (35-45) mm/Hg pO2 31.0 L* (30-55) mm/Hg HCO3 19.7 L (21-28) mmol/L ABG pH 7.37 (7.35-7.45) ABG Total CO2 20.7 L (22-28) mmol.L ABG O2 Saturation 62.8 L (95-98) % ABG O2 Content (15-23) ML/dl ABG Base Excess -4.8 L (-2.0-3.0) mmol/L ABG Hemoglobin (11.7-17.4) g/dL ABG Carboxyhemoglobin (0.5-1.5) % POC ABG HHb (Measured) (0-5) % ABG Methemoglobin (0.0-3.0) % ABG O2 Capacity (16-24) mL/dl ABG Potassium 3.9 (3.6-5.2) mmol/L VBG pH (7.32-7.43) VBG pCO2 (40-60) VBG HCO3 (21-28) mmol/l VBG Total CO2 (22-28) mmol.L VBG O2 Sat (Calc) (40-65) % VBG Base Excess (0.0-2.0) mmol/L VBG Potassium (3.6-5.2) mmol/L Hgb O2 Saturation (95.0-98.0) % Sodium 174.0 H* (132-148) mmol/L Chloride 142.0 H (98-107) mmol/L Glucose 142 H (65-105) mg/dl Lactate 7.2 H* (0.7-2.1) mmol/L FiO2 32.0 % Potassium (3.6-5.0) mmol/L Carbon Dioxide (21-33) mmol/L Anion Gap (10-20) BUN (7-21) mg/dL Creatinine (0.7-1.2) mg/dl Est GFR ( Amer) Est GFR (Non-Af Amer) POC Glucose (mg/dL) 136 H (65-110) mg/dL Random Glucose (70-110) mg/dL Calcium (8.4-10.5) mg/dL Total Bilirubin (0.2-1.3) mg/dL AST (14-36) U/L ALT (7-56) U/L Alkaline Phosphatase (38-126) U/L Troponin I ng/mL C-Reactive Protein (0.0-9.9) mg/L Total Protein (5.8-8.3) g/dL Albumin (3.0-4.8) g/dL Globulin gm/dL Albumin/Globulin Ratio (1.1-1.8) Procalcitonin (0.19-0.49) NG/ML Arterial Blood Potassium 3.9 (3.6-5.2) mmol/L Venous Blood Potassium (3.6-5.2) mmol/L Hep Bs Antigen Negative (NEGATIVE) 10/11/17 10/11/17 10/11/17 Range/Units 04:02 03:18 03:00 WBC (4.5-11.0) 10^3/ul RBC (3.5-6.1) 10^6/uL Hgb (12.0-16.0) g/dL Hct (36.0-48.0) % MCV (80.0-105.0) fl MCH (25.0-35.0) pg MCHC (31.0-37.0) g/dl RDW (11.5-14.5) % Plt Count (120.0-450.0) 10^3/uL MPV (7.0-11.0) fl Gran % (50.0-68.0) % Lymph % (Auto) (22.0-35.0) % [place] % (Auto) (1.0-6.0) % Eos % (Auto) (1.5-5.0) % Baso % (Auto) (0.0-3.0) % Gran # (1.4-6.5) Lymph # (Auto) (1.2-3.4) [place] # (Auto) (0.1-0.6) Eos # (Auto) (0.0-0.7) Baso # (Auto) (0.0-2.0) K/mm3 ESR (0.0-20.0) mm/hr PT (9.4-12.5) SECONDS INR (0.93-1.08) APTT (25.1-36.5) Seconds pCO2 (35-45) mm/Hg pO2 (30-55) mm/Hg HCO3 (21-28) mmol/L ABG pH (7.35-7.45) ABG Total CO2 (22-28) mmol.L ABG O2 Saturation (95-98) % ABG O2 Content (15-23) ML/dl ABG Base Excess (-2.0-3.0) mmol/L ABG Hemoglobin (11.7-17.4) g/dL ABG Carboxyhemoglobin (0.5-1.5) % POC ABG HHb (Measured) (0-5) % ABG Methemoglobin (0.0-3.0) % ABG O2 Capacity (16-24) mL/dl ABG Potassium (3.6-5.2) mmol/L VBG pH (7.32-7.43) VBG pCO2 (40-60) VBG HCO3 (21-28) mmol/l VBG Total CO2 (22-28) mmol.L VBG O2 Sat (Calc) (40-65) % VBG Base Excess (0.0-2.0) mmol/L VBG Potassium (3.6-5.2) mmol/L Hgb O2 Saturation (95.0-98.0) % Sodium 183 H* (132-148) mmol/L Chloride 136 H (98-107) mmol/L Glucose (65-105) mg/dl Lactate (0.7-2.1) mmol/L FiO2 % Potassium 3.8 (3.6-5.0) mmol/L Carbon Dioxide 25 (21-33) mmol/L Anion Gap 26 H (10-20) BUN 85 H (7-21) mg/dL Creatinine 2.4 H (0.7-1.2) mg/dl Est GFR ( Amer) 24 Est GFR (Non-Af Amer) 20 POC Glucose (mg/dL) 143 H 241 H (65-110) mg/dL Random Glucose 261 H (70-110) mg/dL Calcium 9.7 (8.4-10.5) mg/dL Total Bilirubin 0.8 (0.2-1.3) mg/dL AST 85 H (14-36) U/L ALT 95 H (7-56) U/L Alkaline Phosphatase 89 (38-126) U/L Troponin I ng/mL C-Reactive Protein (0.0-9.9) mg/L Total Protein 7.6 (5.8-8.3) g/dL Albumin 3.7 (3.0-4.8) g/dL Globulin 3.8 gm/dL Albumin/Globulin Ratio 1.0 L (1.1-1.8) Procalcitonin (0.19-0.49) NG/ML Arterial Blood Potassium (3.6-5.2) mmol/L Venous Blood Potassium (3.6-5.2) mmol/L Hep Bs Antigen (NEGATIVE) 10/11/17 10/11/17 10/10/17 Range/Units 02:23 00:28 23:50 WBC (4.5-11.0) 10^3/ul RBC (3.5-6.1) 10^6/uL Hgb (12.0-16.0) g/dL Hct (36.0-48.0) % MCV (80.0-105.0) fl MCH (25.0-35.0) pg MCHC (31.0-37.0) g/dl RDW (11.5-14.5) % Plt Count (120.0-450.0) 10^3/uL MPV (7.0-11.0) fl Gran % (50.0-68.0) % Lymph % (Auto) (22.0-35.0) % [place] % (Auto) (1.0-6.0) % Eos % (Auto) (1.5-5.0) % Baso % (Auto) (0.0-3.0) % Gran # (1.4-6.5) Lymph # (Auto) (1.2-3.4) [place] # (Auto) (0.1-0.6) Eos # (Auto) (0.0-0.7) Baso # (Auto) (0.0-2.0) K/mm3 ESR (0.0-20.0) mm/hr PT (9.4-12.5) SECONDS INR (0.93-1.08) APTT (25.1-36.5) Seconds pCO2 (35-45) mm/Hg pO2 (30-55) mm/Hg HCO3 (21-28) mmol/L ABG pH (7.35-7.45) ABG Total CO2 (22-28) mmol.L ABG O2 Saturation (95-98) % ABG O2 Content (15-23) ML/dl ABG Base Excess (-2.0-3.0) mmol/L ABG Hemoglobin (11.7-17.4) g/dL ABG Carboxyhemoglobin (0.5-1.5) % POC ABG HHb (Measured) (0-5) % ABG Methemoglobin (0.0-3.0) % ABG O2 Capacity (16-24) mL/dl ABG Potassium (3.6-5.2) mmol/L VBG pH (7.32-7.43) VBG pCO2 (40-60) VBG HCO3 (21-28) mmol/l VBG Total CO2 (22-28) mmol.L VBG O2 Sat (Calc) (40-65) % VBG Base Excess (0.0-2.0) mmol/L VBG Potassium (3.6-5.2) mmol/L Hgb O2 Saturation (95.0-98.0) % Sodium 182 H* (132-148) mmol/L Chloride 136 H (98-107) mmol/L Glucose (65-105) mg/dl Lactate (0.7-2.1) mmol/L FiO2 % Potassium 4.6 (3.6-5.0) mmol/L Carbon Dioxide 18 L (21-33) mmol/L Anion Gap 34 H (10-20) BUN 82 H (7-21) mg/dL Creatinine 2.3 H (0.7-1.2) mg/dl Est GFR ( Amer) 25 Est GFR (Non-Af Amer) 21 POC Glucose (mg/dL) 254 H 361 H (65-110) mg/dL Random Glucose 447 H* D (70-110) mg/dL Calcium 9.5 (8.4-10.5) mg/dL Total Bilirubin 0.7 (0.2-1.3) mg/dL AST 89 H D (14-36) U/L ALT 90 H (7-56) U/L Alkaline Phosphatase 97 (38-126) U/L Troponin I ng/mL C-Reactive Protein (0.0-9.9) mg/L Total Protein 7.3 (5.8-8.3) g/dL Albumin 3.6 (3.0-4.8) g/dL Globulin 3.7 gm/dL Albumin/Globulin Ratio 1.0 L (1.1-1.8) Procalcitonin (0.19-0.49) NG/ML Arterial Blood Potassium (3.6-5.2) mmol/L Venous Blood Potassium (3.6-5.2) mmol/L Hep Bs Antigen (NEGATIVE) 10/10/17 10/10/17 10/10/17 Range/Units 23:00 22:02 21:04 WBC (4.5-11.0) 10^3/ul RBC (3.5-6.1) 10^6/uL Hgb (12.0-16.0) g/dL Hct (36.0-48.0) % MCV (80.0-105.0) fl MCH (25.0-35.0) pg MCHC (31.0-37.0) g/dl RDW (11.5-14.5) % Plt Count (120.0-450.0) 10^3/uL MPV (7.0-11.0) fl Gran % (50.0-68.0) % Lymph % (Auto) (22.0-35.0) % [place] % (Auto) (1.0-6.0) % Eos % (Auto) (1.5-5.0) % Baso % (Auto) (0.0-3.0) % Gran # (1.4-6.5) Lymph # (Auto) (1.2-3.4) [place] # (Auto) (0.1-0.6) Eos # (Auto) (0.0-0.7) Baso # (Auto) (0.0-2.0) K/mm3 ESR (0.0-20.0) mm/hr PT (9.4-12.5) SECONDS INR (0.93-1.08) APTT (25.1-36.5) Seconds pCO2 (35-45) mm/Hg pO2 (30-55) mm/Hg HCO3 (21-28) mmol/L ABG pH (7.35-7.45) ABG Total CO2 (22-28) mmol.L ABG O2 Saturation (95-98) % ABG O2 Content (15-23) ML/dl ABG Base Excess (-2.0-3.0) mmol/L ABG Hemoglobin (11.7-17.4) g/dL ABG Carboxyhemoglobin (0.5-1.5) % POC ABG HHb (Measured) (0-5) % ABG Methemoglobin (0.0-3.0) % ABG O2 Capacity (16-24) mL/dl ABG Potassium (3.6-5.2) mmol/L VBG pH (7.32-7.43) VBG pCO2 (40-60) VBG HCO3 (21-28) mmol/l VBG Total CO2 (22-28) mmol.L VBG O2 Sat (Calc) (40-65) % VBG Base Excess (0.0-2.0) mmol/L VBG Potassium (3.6-5.2) mmol/L Hgb O2 Saturation (95.0-98.0) % Sodium (132-148) mmol/L Chloride (98-107) mmol/L Glucose (65-105) mg/dl Lactate (0.7-2.1) mmol/L FiO2 % Potassium (3.6-5.0) mmol/L Carbon Dioxide (21-33) mmol/L Anion Gap (10-20) BUN (7-21) mg/dL Creatinine (0.7-1.2) mg/dl Est GFR ( Amer) Est GFR (Non-Af Amer) POC Glucose (mg/dL) 392 H 469 H* 470 H* (65-110) mg/dL Random Glucose (70-110) mg/dL Calcium (8.4-10.5) mg/dL Total Bilirubin (0.2-1.3) mg/dL AST (14-36) U/L ALT (7-56) U/L Alkaline Phosphatase (38-126) U/L Troponin I ng/mL C-Reactive Protein (0.0-9.9) mg/L Total Protein (5.8-8.3) g/dL Albumin (3.0-4.8) g/dL Globulin gm/dL Albumin/Globulin Ratio (1.1-1.8) Procalcitonin (0.19-0.49) NG/ML Arterial Blood Potassium (3.6-5.2) mmol/L Venous Blood Potassium (3.6-5.2) mmol/L Hep Bs Antigen (NEGATIVE) 10/10/17 10/10/17 10/10/17 Range/Units 20:14 19:35 18:55 WBC (4.5-11.0) 10^3/ul RBC (3.5-6.1) 10^6/uL Hgb (12.0-16.0) g/dL Hct (36.0-48.0) % MCV (80.0-105.0) fl MCH (25.0-35.0) pg MCHC (31.0-37.0) g/dl RDW (11.5-14.5) % Plt Count (120.0-450.0) 10^3/uL MPV (7.0-11.0) fl Gran % (50.0-68.0) % Lymph % (Auto) (22.0-35.0) % [place] % (Auto) (1.0-6.0) % Eos % (Auto) (1.5-5.0) % Baso % (Auto) (0.0-3.0) % Gran # (1.4-6.5) Lymph # (Auto) (1.2-3.4) [place] # (Auto) (0.1-0.6) Eos # (Auto) (0.0-0.7) Baso # (Auto) (0.0-2.0) K/mm3 ESR (0.0-20.0) mm/hr PT (9.4-12.5) SECONDS INR (0.93-1.08) APTT (25.1-36.5) Seconds pCO2 (35-45) mm/Hg pO2 97 H (30-55) mm/Hg HCO3 (21-28) mmol/L ABG pH (7.35-7.45) ABG Total CO2 (22-28) mmol.L ABG O2 Saturation (95-98) % ABG O2 Content (15-23) ML/dl ABG Base Excess (-2.0-3.0) mmol/L ABG Hemoglobin (11.7-17.4) g/dL ABG Carboxyhemoglobin (0.5-1.5) % POC ABG HHb (Measured) (0-5) % ABG Methemoglobin (0.0-3.0) % ABG O2 Capacity (16-24) mL/dl ABG Potassium (3.6-5.2) mmol/L VBG pH 7.31 L (7.32-7.43) VBG pCO2 52.0 (40-60) VBG HCO3 26.2 (21-28) mmol/l VBG Total CO2 27.8 (22-28) mmol.L VBG O2 Sat (Calc) 97.4 H (40-65) % VBG Base Excess -0.7 L (0.0-2.0) mmol/L VBG Potassium 5.5 H (3.6-5.2) mmol/L Hgb O2 Saturation (95.0-98.0) % Sodium 170.0 H* (132-148) mmol/L Chloride 134.0 H (98-107) mmol/L Glucose > 750 H* (65-105) mg/dl Lactate 3.3 H (0.7-2.1) mmol/L FiO2 21.0 % Potassium (3.6-5.0) mmol/L Carbon Dioxide (21-33) mmol/L Anion Gap (10-20) BUN (7-21) mg/dL Creatinine (0.7-1.2) mg/dl Est GFR ( Amer) Est GFR (Non-Af Amer) POC Glucose (mg/dL) > 500 H* > 500 H* (65-110) mg/dL Random Glucose (70-110) mg/dL Calcium (8.4-10.5) mg/dL Total Bilirubin (0.2-1.3) mg/dL AST (14-36) U/L ALT (7-56) U/L Alkaline Phosphatase (38-126) U/L Troponin I ng/mL C-Reactive Protein (0.0-9.9) mg/L Total Protein (5.8-8.3) g/dL Albumin (3.0-4.8) g/dL Globulin gm/dL Albumin/Globulin Ratio (1.1-1.8) Procalcitonin (0.19-0.49) NG/ML Arterial Blood Potassium (3.6-5.2) mmol/L Venous Blood Potassium 5.5 H (3.6-5.2) mmol/L Hep Bs Antigen (NEGATIVE) 10/10/17 Range/Units 18:30 WBC (4.5-11.0) 10^3/ul RBC (3.5-6.1) 10^6/uL Hgb (12.0-16.0) g/dL Hct (36.0-48.0) % MCV (80.0-105.0) fl MCH (25.0-35.0) pg MCHC (31.0-37.0) g/dl RDW (11.5-14.5) % Plt Count (120.0-450.0) 10^3/uL MPV (7.0-11.0) fl Gran % (50.0-68.0) % Lymph % (Auto) (22.0-35.0) % [place] % (Auto) (1.0-6.0) % Eos % (Auto) (1.5-5.0) % Baso % (Auto) (0.0-3.0) % Gran # (1.4-6.5) Lymph # (Auto) (1.2-3.4) [place] # (Auto) (0.1-0.6) Eos # (Auto) (0.0-0.7) Baso # (Auto) (0.0-2.0) K/mm3 ESR (0.0-20.0) mm/hr PT (9.4-12.5) SECONDS INR (0.93-1.08) APTT (25.1-36.5) Seconds pCO2 (35-45) mm/Hg pO2 (30-55) mm/Hg HCO3 (21-28) mmol/L ABG pH (7.35-7.45) ABG Total CO2 (22-28) mmol.L ABG O2 Saturation (95-98) % ABG O2 Content (15-23) ML/dl ABG Base Excess (-2.0-3.0) mmol/L ABG Hemoglobin (11.7-17.4) g/dL ABG Carboxyhemoglobin (0.5-1.5) % POC ABG HHb (Measured) (0-5) % ABG Methemoglobin (0.0-3.0) % ABG O2 Capacity (16-24) mL/dl ABG Potassium (3.6-5.2) mmol/L VBG pH (7.32-7.43) VBG pCO2 (40-60) VBG HCO3 (21-28) mmol/l VBG Total CO2 (22-28) mmol.L VBG O2 Sat (Calc) (40-65) % VBG Base Excess (0.0-2.0) mmol/L VBG Potassium (3.6-5.2) mmol/L Hgb O2 Saturation (95.0-98.0) % Sodium (132-148) mmol/L Chloride (98-107) mmol/L Glucose (65-105) mg/dl Lactate (0.7-2.1) mmol/L FiO2 % Potassium (3.6-5.0) mmol/L Carbon Dioxide (21-33) mmol/L Anion Gap (10-20) BUN (7-21) mg/dL Creatinine (0.7-1.2) mg/dl Est GFR ( Amer) Est GFR (Non-Af Amer) POC Glucose (mg/dL) (65-110) mg/dL Random Glucose (70-110) mg/dL Calcium (8.4-10.5) mg/dL Total Bilirubin (0.2-1.3) mg/dL AST (14-36) U/L ALT (7-56) U/L Alkaline Phosphatase (38-126) U/L Troponin I ng/mL C-Reactive Protein (0.0-9.9) mg/L Total Protein (5.8-8.3) g/dL Albumin (3.0-4.8) g/dL Globulin gm/dL Albumin/Globulin Ratio (1.1-1.8) Procalcitonin 0.45 (0.19-0.49) NG/ML Arterial Blood Potassium (3.6-5.2) mmol/L Venous Blood Potassium (3.6-5.2) mmol/L Hep Bs Antigen (NEGATIVE) Laboratory Results - last 24 hr 10/10/17 10/10/17 10/10/17 18:30 18:55 19:35 WBC RBC Hgb Hct MCV MCH MCHC RDW Plt Count MPV Gran % Lymph % (Auto) [place] % (Auto) Eos % (Auto) Baso % (Auto) Gran # Lymph # (Auto) [place] # (Auto) Eos # (Auto) Baso # (Auto) ESR PT INR APTT pCO2 pO2 97 H HCO3 ABG pH ABG Total CO2 ABG O2 Saturation ABG O2 Content ABG Base Excess ABG Hemoglobin ABG Carboxyhemoglobin POC ABG HHb (Measured) ABG Methemoglobin ABG O2 Capacity ABG Potassium VBG pH 7.31 L VBG pCO2 52.0 VBG HCO3 26.2 VBG Total CO2 27.8 VBG O2 Sat (Calc) 97.4 H VBG Base Excess -0.7 L VBG Potassium 5.5 H Hgb O2 Saturation Sodium 170.0 H* Chloride 134.0 H Glucose > 750 H* Lactate 3.3 H FiO2 21.0 Potassium Carbon Dioxide Anion Gap BUN Creatinine Est GFR ( Amer) Est GFR (Non-Af Amer) POC Glucose (mg/dL) > 500 H* Random Glucose Calcium Total Bilirubin AST ALT Alkaline Phosphatase Troponin I C-Reactive Protein Total Protein Albumin Globulin Albumin/Globulin Ratio Procalcitonin 0.45 Arterial Blood Potassium Venous Blood Potassium 5.5 H Hep Bs Antigen 10/10/17 10/10/17 10/10/17 20:14 21:04 22:02 WBC RBC Hgb Hct MCV MCH MCHC RDW Plt Count MPV Gran % Lymph % (Auto) [place] % (Auto) Eos % (Auto) Baso % (Auto) Gran # Lymph # (Auto) [place] # (Auto) Eos # (Auto) Baso # (Auto) ESR PT INR APTT pCO2 pO2 HCO3 ABG pH ABG Total CO2 ABG O2 Saturation ABG O2 Content ABG Base Excess ABG Hemoglobin ABG Carboxyhemoglobin POC ABG HHb (Measured) ABG Methemoglobin ABG O2 Capacity ABG Potassium VBG pH VBG pCO2 VBG HCO3 VBG Total CO2 VBG O2 Sat (Calc) VBG Base Excess VBG Potassium Hgb O2 Saturation Sodium Chloride Glucose Lactate FiO2 Potassium Carbon Dioxide Anion Gap BUN Creatinine Est GFR ( Amer) Est GFR (Non-Af Amer) POC Glucose (mg/dL) > 500 H* 470 H* 469 H* Random Glucose Calcium Total Bilirubin AST ALT Alkaline Phosphatase Troponin I C-Reactive Protein Total Protein Albumin Globulin Albumin/Globulin Ratio Procalcitonin Arterial Blood Potassium Venous Blood Potassium Hep Bs Antigen 10/10/17 10/10/17 10/11/17 23:00 23:50 00:28 WBC RBC Hgb Hct MCV MCH MCHC RDW Plt Count MPV Gran % Lymph % (Auto) [place] % (Auto) Eos % (Auto) Baso % (Auto) Gran # Lymph # (Auto) [place] # (Auto) Eos # (Auto) Baso # (Auto) ESR PT INR APTT pCO2 pO2 HCO3 ABG pH ABG Total CO2 ABG O2 Saturation ABG O2 Content ABG Base Excess ABG Hemoglobin ABG Carboxyhemoglobin POC ABG HHb (Measured) ABG Methemoglobin ABG O2 Capacity ABG Potassium VBG pH VBG pCO2 VBG HCO3 VBG Total CO2 VBG O2 Sat (Calc) VBG Base Excess VBG Potassium Hgb O2 Saturation Sodium 182 H* Chloride 136 H Glucose Lactate FiO2 Potassium 4.6 Carbon Dioxide 18 L Anion Gap 34 H BUN 82 H Creatinine 2.3 H Est GFR ( Amer) 25 Est GFR (Non-Af Amer) 21 POC Glucose (mg/dL) 392 H 361 H Random Glucose 447 H* D Calcium 9.5 Total Bilirubin 0.7 AST 89 H D ALT 90 H Alkaline Phosphatase 97 Troponin I C-Reactive Protein Total Protein 7.3 Albumin 3.6 Globulin 3.7 Albumin/Globulin Ratio 1.0 L Procalcitonin Arterial Blood Potassium Venous Blood Potassium Hep Bs Antigen 10/11/17 10/11/17 10/11/17 02:23 03:00 03:18 WBC RBC Hgb Hct MCV MCH MCHC RDW Plt Count MPV Gran % Lymph % (Auto) [place] % (Auto) Eos % (Auto) Baso % (Auto) Gran # Lymph # (Auto) [place] # (Auto) Eos # (Auto) Baso # (Auto) ESR PT INR APTT pCO2 pO2 HCO3 ABG pH ABG Total CO2 ABG O2 Saturation ABG O2 Content ABG Base Excess ABG Hemoglobin ABG Carboxyhemoglobin POC ABG HHb (Measured) ABG Methemoglobin ABG O2 Capacity ABG Potassium VBG pH VBG pCO2 VBG HCO3 VBG Total CO2 VBG O2 Sat (Calc) VBG Base Excess VBG Potassium Hgb O2 Saturation Sodium 183 H* Chloride 136 H Glucose Lactate FiO2 Potassium 3.8 Carbon Dioxide 25 Anion Gap 26 H BUN 85 H Creatinine 2.4 H Est GFR ( Amer) 24 Est GFR (Non-Af Amer) 20 POC Glucose (mg/dL) 254 H 241 H Random Glucose 261 H Calcium 9.7 Total Bilirubin 0.8 AST 85 H ALT 95 H Alkaline Phosphatase 89 Troponin I C-Reactive Protein Total Protein 7.6 Albumin 3.7 Globulin 3.8 Albumin/Globulin Ratio 1.0 L Procalcitonin Arterial Blood Potassium Venous Blood Potassium Hep Bs Antigen 10/11/17 10/11/17 10/11/17 04:02 04:06 04:10 WBC RBC Hgb Hct MCV MCH MCHC RDW Plt Count MPV Gran % Lymph % (Auto) [place] % (Auto) Eos % (Auto) Baso % (Auto) Gran # Lymph # (Auto) [place] # (Auto) Eos # (Auto) Baso # (Auto) ESR PT INR APTT pCO2 34 L pO2 31.0 L* HCO3 19.7 L ABG pH 7.37 ABG Total CO2 20.7 L ABG O2 Saturation 62.8 L ABG O2 Content ABG Base Excess -4.8 L ABG Hemoglobin ABG Carboxyhemoglobin POC ABG HHb (Measured) ABG Methemoglobin ABG O2 Capacity ABG Potassium 3.9 VBG pH VBG pCO2 VBG HCO3 VBG Total CO2 VBG O2 Sat (Calc) VBG Base Excess VBG Potassium Hgb O2 Saturation Sodium 174.0 H* Chloride 142.0 H Glucose 142 H Lactate 7.2 H* FiO2 32.0 Potassium Carbon Dioxide Anion Gap BUN Creatinine Est GFR ( Amer) Est GFR (Non-Af Amer) POC Glucose (mg/dL) 143 H 136 H Random Glucose Calcium Total Bilirubin AST ALT Alkaline Phosphatase Troponin I C-Reactive Protein Total Protein Albumin Globulin Albumin/Globulin Ratio Procalcitonin Arterial Blood Potassium 3.9 Venous Blood Potassium Hep Bs Antigen 10/11/17 10/11/17 10/11/17 04:45 04:45 04:45 WBC 7.5 RBC 3.01 L Hgb 8.6 L D Hct 29.9 L MCV 99.3 MCH 28.6 MCHC 28.8 L RDW 14.6 H Plt Count 106 L MPV 13.0 H Gran % 62.0 Lymph % (Auto) 36.0 H [place] % (Auto) 2.0 Eos % (Auto) 0.0 L Baso % (Auto) 0.0 Gran # 4.66 Lymph # (Auto) 2.7 [place] # (Auto) 0.2 Eos # (Auto) 0.0 Baso # (Auto) 0.00 ESR 5 PT INR APTT pCO2 pO2 HCO3 ABG pH ABG Total CO2 ABG O2 Saturation ABG O2 Content ABG Base Excess ABG Hemoglobin ABG Carboxyhemoglobin POC ABG HHb (Measured) ABG Methemoglobin ABG O2 Capacity ABG Potassium VBG pH VBG pCO2 VBG HCO3 VBG Total CO2 VBG O2 Sat (Calc) VBG Base Excess VBG Potassium Hgb O2 Saturation Sodium Chloride Glucose Lactate FiO2 Potassium Carbon Dioxide Anion Gap BUN Creatinine Est GFR ( Amer) Est GFR (Non-Af Amer) POC Glucose (mg/dL) Random Glucose Calcium Total Bilirubin AST ALT Alkaline Phosphatase Troponin I C-Reactive Protein 67.60 H Total Protein Albumin Globulin Albumin/Globulin Ratio Procalcitonin Arterial Blood Potassium Venous Blood Potassium Hep Bs Antigen Negative 10/11/17 10/11/17 10/11/17 04:45 04:55 05:00 WBC RBC Hgb Hct MCV MCH MCHC RDW Plt Count MPV Gran % Lymph % (Auto) [place] % (Auto) Eos % (Auto) Baso % (Auto) Gran # Lymph # (Auto) [place] # (Auto) Eos # (Auto) Baso # (Auto) ESR PT 31.2 H INR 2.66 H APTT 47.5 H pCO2 pO2 25 L HCO3 ABG pH ABG Total CO2 ABG O2 Saturation ABG O2 Content ABG Base Excess ABG Hemoglobin ABG Carboxyhemoglobin POC ABG HHb (Measured) ABG Methemoglobin ABG O2 Capacity ABG Potassium VBG pH 7.22 L VBG pCO2 38.0 L VBG HCO3 15.6 L VBG Total CO2 16.8 L VBG O2 Sat (Calc) 41.8 VBG Base Excess -11.4 L VBG Potassium 2.3 L* Hgb O2 Saturation Sodium 172 H* 168.0 H* Chloride 144 H 144.0 H Glucose 85 Lactate 6.2 H* FiO2 21.0 Potassium 2.1 L* D Carbon Dioxide 13 L Anion Gap 17 BUN 48 H Creatinine 1.3 H Est GFR ( Amer) 48 Est GFR (Non-Af Amer) 40 POC Glucose (mg/dL) Random Glucose 66 L Calcium 4.6 L* Total Bilirubin 0.8 AST 36 D ALT 53 Alkaline Phosphatase 30 L D Troponin I 0.12 D C-Reactive Protein Total Protein 3.2 L Albumin 1.2 L Globulin 2.0 Albumin/Globulin Ratio 0.6 L Procalcitonin Arterial Blood Potassium Venous Blood Potassium 2.3 L* Hep Bs Antigen 10/11/17 10/11/17 10/11/17 05:25 07:17 07:58 WBC RBC Hgb Hct MCV MCH MCHC RDW Plt Count MPV Gran % Lymph % (Auto) [place] % (Auto) Eos % (Auto) Baso % (Auto) Gran # Lymph # (Auto) [place] # (Auto) Eos # (Auto) Baso # (Auto) ESR PT INR APTT pCO2 pO2 HCO3 ABG pH ABG Total CO2 ABG O2 Saturation ABG O2 Content ABG Base Excess ABG Hemoglobin ABG Carboxyhemoglobin POC ABG HHb (Measured) ABG Methemoglobin ABG O2 Capacity ABG Potassium VBG pH VBG pCO2 VBG HCO3 VBG Total CO2 VBG O2 Sat (Calc) VBG Base Excess VBG Potassium Hgb O2 Saturation Sodium Chloride Glucose Lactate FiO2 Potassium Carbon Dioxide Anion Gap BUN Creatinine Est GFR ( Amer) Est GFR (Non-Af Amer) POC Glucose (mg/dL) 133 H 155 H 151 H Random Glucose Calcium Total Bilirubin AST ALT Alkaline Phosphatase Troponin I C-Reactive Protein Total Protein Albumin Globulin Albumin/Globulin Ratio Procalcitonin Arterial Blood Potassium Venous Blood Potassium Hep Bs Antigen 10/11/17 08:20 WBC RBC Hgb Hct MCV MCH MCHC RDW Plt Count MPV Gran % Lymph % (Auto) [place] % (Auto) Eos % (Auto) Baso % (Auto) Gran # Lymph # (Auto) [place] # (Auto) Eos # (Auto) Baso # (Auto) ESR PT INR APTT pCO2 41 pO2 86.0 HCO3 10.8 L ABG pH 7.03 L* ABG Total CO2 12.1 L ABG O2 Saturation 96.0 ABG O2 Content 12.8 L ABG Base Excess -19.0 L ABG Hemoglobin 9.6 L ABG Carboxyhemoglobin 1.4 POC ABG HHb (Measured) 3.9 ABG Methemoglobin 0.7 ABG O2 Capacity 13.3 L ABG Potassium VBG pH VBG pCO2 VBG HCO3 VBG Total CO2 VBG O2 Sat (Calc) VBG Base Excess VBG Potassium Hgb O2 Saturation 94.0 L Sodium Chloride Glucose Lactate FiO2 100.0 Potassium Carbon Dioxide Anion Gap BUN Creatinine Est GFR ( Amer) Est GFR (Non-Af Amer) POC Glucose (mg/dL) Random Glucose Calcium Total Bilirubin AST ALT Alkaline Phosphatase Troponin I C-Reactive Protein Total Protein Albumin Globulin Albumin/Globulin Ratio Procalcitonin Arterial Blood Potassium Venous Blood Potassium Hep Bs Antigen EKG/Cardiology Studies: Cardiology / EKG Studies 10/11/17 03:30 EKG [ELECTROCARDIOGRAM] Stat Comment: Reason For Exam: tachycardia Assessment/Plan - Assessment and Plan (Free Text) Assessment: Patient seen and examined on rounds with resident, agree with note with following additions/exceptions: Patient is 77yo female with PMhx of DM, severe dementia, malnutrition, [facility] from [facility] for [facility] Pt found to be in HONK, hypernatremic, dehydrated, in OSWALDO, started on insulin drip, and IVF hydration. Gage this morning patient went into PEA arrest ~15 minutes, ROSC achieved, intubated, central line placed. Currently on Vasopressor support, Levophed, Vasopressin Multiple electrolyte derangements, all repleted aggressively LE dopplers negative Hypernatremia HONK Dehydration OSWALDO AMS Severe Dementia Septic Shock PNA Cardiac Arrest s/p ROSC Recommend: - cont with vent support, low tidal vol ventilation - duonebs PRN - panculture, BCx, UCx, Procal - Obtain ID eval - Broad spectrum antibiotics, Merrem, Vanco, renally dosed - D5W with 3amps bicarb - NPO - PPI drip - FS q1hr - Vasopressor support, goal MAP 65 - Stress dose steroids - check TSH, VitB12, Folate, RPR - ECHO - check HgbA1C - BMP q6hr - renal sono - UA, Ulytes - monitor HH - GI ppx - DVT ppx - palliative care consult - monitor in micu extremely poor prognosis spoke to Jossue Hernandez, daughters/HCP at bedside, they would like to continue with aggressive care, more family members to come in critical care time 40 minutes
[2017-10-11] MEDS: Fentanyl 1000mcg/100ml NS 1,000 MCG/100 ML BAG IV PRN (11:58)
[2017-10-11 12:30] LABS: HEPATITIS B SURFACE AG Negative (NEGATIVE)
[2017-10-11] MEDS: Meropenem IV 1 gm in NS 50 ML IVPB SCH ×2 (12:43→21:30)
[2017-10-11 12:56] LABS: HEPATITIS A IGM NEGATIVE (NEGATIVE); HEPATITIS B CORE AB NEGATIVE (NEGATIVE)
[2017-10-11 13:49] LABS: HEMOGLOBIN 9.7 g/dL (12.0-16.0); MEAN CORPUSCULAR HEMOGLOBIN 27.8 pg (25.0-35.0); MEAN CORPUSCULAR HGB CONC 27.2 g/dl (31.0-37.0); MEAN PLATELET VOLUME 12.8 fl (7.0-11.0); RBC 3.49 10^6/uL (3.5-6.1); WHITE BLOOD COUNT 8.6 10^3/ul (4.5-11.0)
[2017-10-11 14:03] LABS: ARTERIAL BLOOD GAS HCO3 10.5 mmol/L (21-28); ARTERIAL BLOOD GAS PCO2 33 mm/Hg (35-45); ARTERIAL BLOOD GAS TCO2 11.5 mmol.L (22-28)
[2017-10-11 14:08] LABS: ARTERIAL BLOOD GAS PH 7.11 (7.35-7.45)
[2017-10-11] MEDS ORDERED: Albuterol 0.083% Inhal Sol (2.5 mg/3 mL) UD INH STA (14:17)
[2017-10-11 14:19] LABS: ALB/GLOB RATIO 0.8 (1.1-1.8)
[2017-10-11] MEDS ORDERED: Sod Polystyrene Sulf 15 gm/60 ml Susp PR ONE (14:22)
[2017-10-11] MEDS ORDERED: Insulin Regular 1 UNITS/0.01 ML ML IV ONE (14:25)
[2017-10-11] MEDS ORDERED: Sod Polystyrene Sulf 15 gm/60 ml Susp PO ONE (14:30)
--- NOTE | 2017-10-11 14:39 | CP.PCM.CON ---
History of Present Illness - History of Present Illness History of Present Illness: 77 year old female with PMH of HTN, S/P right hip replacement, dementia was sent in from the custodial because of confusion and lethargy. She also developed respiratory distress and fevers while in the ED and the patient is now intubated and on the ventilator. Full review of systems is unobtainable because of intubation. CT scan of the abdomen and pelvis and CXR is suggestive of left lower lobe consolidation. Infectious Diseases consult is requested to further evaluate and manage. Review of Systems - Review of Systems Systems not reviewed;Unavailable: Intubated Past Patient History - Infectious Disease Hx of Infectious Diseases: None - Past Social History Smoking Status: Never Smoked - CARDIAC Hx Hypertension: Yes - PULMONARY Hx Respiratory Disorders: No - NEUROLOGICAL Hx Neurological Disorder: Yes Hx Dementia: Yes - RENAL Hx Chronic Kidney Disease: No - ENDOCRINE/METABOLIC Hx Endocrine Disorders: No - HEMATOLOGICAL/ONCOLOGICAL Hx Blood Disorders: No - INTEGUMENTARY Hx Dermatological Problems: No - MUSCULOSKELETAL/RHEUMATOLOGICAL Hx Musculoskeletal Disorders: Yes Hx Falls: Yes Hx Osteoporosis: Yes Hx Unsteady Gait: Yes - GASTROINTESTINAL Hx Gastrointestinal Disorders: No - GENITOURINARY/GYNECOLOGICAL Hx Genitourinary Disorders: No Hx Incontinence: Yes - PSYCHIATRIC Hx Psychophysiologic Disorder: No - SURGICAL HISTORY Hx Joint Replacement: Yes (R hip) - ANESTHESIA Hx Anesthesia: Yes Hx Anesthesia Reactions: No Hx Malignant Hyperthermia: No Meds Allergies/Adverse Reactions: Allergies Allergy/AdvReac Type Severity Reaction Status Date / Time No Known Allergies Allergy Unverified 07/29/17 02:26 - Medications Medications: Current Medications Albuterol/Ipratropium (Duoneb 3 Mg/0.5 Mg (3 Ml) Ud) 3 ml IH [id number] [facility] Last Admin: 10/11/17 07:59 Dose: 3 ml Albuterol/Ipratropium (Duoneb 3 Mg/0.5 Mg (3 Ml) Ud) 3 ml IH Q2H PRN PRN Reason: Shortness of Breath Hydrocortisone Sodium Succinate (Solu-Cortef) 50 mg IVP Q6 [facility] Last Admin: 10/11/17 11:21 Dose: 50 mg Meropenem 250 mg/ Sodium (Chloride) 100 mls @ 100 mls/hr IVPB Q12H JONNY PRN Reason: Protocol Stop: 10/19/17 22:46 Last Admin: 10/11/17 11:19 Dose: 100 mls/hr Potassium Chloride (Potassium Chloride 10 Meq/100 Ml) 10 meq in 100 mls @ 50 mls/hr IVPB Q2H JONNY Stop: 10/11/17 11:59 Last Admin: 10/11/17 11:10 Dose: Not Given NOREPINEPHRINE BIT/0.9 % NACL (Levophed 4 Mg/ 250 Ml Ns Premixed) 4 mg in 250 mls @ 15 mls/hr IV .[id number] PRN; Protocol; 4 MCG/MIN PRN Reason: TITRATE PER MD ORDER Last Titration: 10/11/17 07:38 Dose: 25 mcg/min, 93.75 mls/hr Vasopressin 20 units/ Dextrose 101 mls @ 9.09 mls/hr IV .[id number] JONNY; 0.03 U/MIN PRN Reason: Protocol Last Admin: 10/11/17 08:20 Dose: 9.09 mls/hr Potassium Chloride (Potassium Chloride 20 Meq/100 Ml) 20 meq in 100 mls @ 50 mls/hr IVPB Q2H JONNY Stop: 10/11/17 14:14 Last Admin: 10/11/17 11:19 Dose: 50 mls/hr Pantoprazole Sodium (Protonix 40mg Ivpb) 40 mg in 100 mls @ 20 mls/hr IVPB .Q5H JONNY Last Admin: 10/11/17 08:45 Dose: 20 mls/hr Sodium Bicarbonate 150 meq/ (Dextrose) 1,150 mls @ 100 mls/hr IV .[id number] JONNY Last Admin: 10/11/17 09:04 Dose: 100 mls/hr Fentanyl Citrate (Fentanyl Citrate/Sodium Chloride 1 Mg/100 Ml) 1,000 mcg in 100 mls @ 2 mls/hr IV .Q24H PRN; Protocol; 20 MCG/HR PRN Reason: TITRATE PER MD ORDER Physical Exam - Constitutional Appears: Other (intubated and sedated) - Head Exam Head Exam: NORMAL INSPECTION - ENT Exam Additional comments: ET tube in place - Respiratory Exam Respiratory Exam: Decreased Breath Sounds - Cardiovascular Exam Cardiovascular Exam: +S1, +S2 - GI/Abdominal Exam GI & Abdominal Exam: Soft. absent: Tenderness Results - Vital Signs Recent Vital Signs: Last Vital Signs Temp 104.2 F H 10/11/17 05:30 Pulse 115 H 04/25/18 05:30 Resp 22 10/11/17 05:30 BP 73/32 L 10/11/17 08:20 Pulse Ox 90 L 10/11/17 05:30 - Labs Result Diagrams: 10/11/17 13:30 10/11/17 13:30 Labs: Laboratory Results - last 24 hr 10/10/17 10/10/17 10/10/17 18:30 18:55 19:35 WBC RBC Hgb Hct MCV MCH MCHC RDW Plt Count MPV Gran % Lymph % (Auto) Cannon % (Auto) Eos % (Auto) Baso % (Auto) Gran # Lymph # (Auto) Cannon # (Auto) Eos # (Auto) Baso # (Auto) ESR PT INR APTT pCO2 pO2 97 H HCO3 ABG pH ABG Total CO2 ABG O2 Saturation ABG O2 Content ABG Base Excess ABG Hemoglobin ABG Carboxyhemoglobin POC ABG HHb (Measured) ABG Methemoglobin ABG O2 Capacity ABG Potassium VBG pH 7.31 L VBG pCO2 52.0 VBG HCO3 26.2 VBG Total CO2 27.8 VBG O2 Sat (Calc) 97.4 H VBG Base Excess -0.7 L VBG Potassium 5.5 H Hgb O2 Saturation Sodium 170.0 H* Chloride 134.0 H Glucose > 750 H* Lactate 3.3 H FiO2 21.0 Potassium Carbon Dioxide Anion Gap BUN Creatinine Est GFR ( Amer) Est GFR (Non-Af Amer) POC Glucose (mg/dL) > 500 H* Random Glucose Calcium Total Bilirubin AST ALT Alkaline Phosphatase Troponin I Total Protein Albumin Globulin Albumin/Globulin Ratio Procalcitonin 0.45 Arterial Blood Potassium Venous Blood Potassium 5.5 H 10/10/17 10/10/17 10/10/17 20:14 21:04 22:02 WBC RBC Hgb Hct MCV MCH MCHC RDW Plt Count MPV Gran % Lymph % (Auto) Cannon % (Auto) Eos % (Auto) Baso % (Auto) Gran # Lymph # (Auto) Cannon # (Auto) Eos # (Auto) Baso # (Auto) ESR PT INR APTT pCO2 pO2 HCO3 ABG pH ABG Total CO2 ABG O2 Saturation ABG O2 Content ABG Base Excess ABG Hemoglobin ABG Carboxyhemoglobin POC ABG HHb (Measured) ABG Methemoglobin ABG O2 Capacity ABG Potassium VBG pH VBG pCO2 VBG HCO3 VBG Total CO2 VBG O2 Sat (Calc) VBG Base Excess VBG Potassium Hgb O2 Saturation Sodium Chloride Glucose Lactate FiO2 Potassium Carbon Dioxide Anion Gap BUN Creatinine Est GFR ( Amer) Est GFR (Non-Af Amer) POC Glucose (mg/dL) > 500 H* 470 H* 469 H* Random Glucose Calcium Total Bilirubin AST ALT Alkaline Phosphatase Troponin I Total Protein Albumin Globulin Albumin/Globulin Ratio Procalcitonin Arterial Blood Potassium Venous Blood Potassium 10/10/17 10/10/17 10/11/17 23:00 23:50 00:28 WBC RBC Hgb Hct MCV MCH MCHC RDW Plt Count MPV Gran % Lymph % (Auto) Cannon % (Auto) Eos % (Auto) Baso % (Auto) Gran # Lymph # (Auto) Cannon # (Auto) Eos # (Auto) Baso # (Auto) ESR PT INR APTT pCO2 pO2 HCO3 ABG pH ABG Total CO2 ABG O2 Saturation ABG O2 Content ABG Base Excess ABG Hemoglobin ABG Carboxyhemoglobin POC ABG HHb (Measured) ABG Methemoglobin ABG O2 Capacity ABG Potassium VBG pH VBG pCO2 VBG HCO3 VBG Total CO2 VBG O2 Sat (Calc) VBG Base Excess VBG Potassium Hgb O2 Saturation Sodium 182 H* Chloride 136 H Glucose Lactate FiO2 Potassium 4.6 Carbon Dioxide 18 L Anion Gap 34 H BUN 82 H Creatinine 2.3 H Est GFR ( Amer) 25 Est GFR (Non-Af Amer) 21 POC Glucose (mg/dL) 392 H 361 H Random Glucose 447 H* D Calcium 9.5 Total Bilirubin 0.7 AST 89 H D ALT 90 H Alkaline Phosphatase 97 Troponin I Total Protein 7.3 Albumin 3.6 Globulin 3.7 Albumin/Globulin Ratio 1.0 L Procalcitonin Arterial Blood Potassium Venous Blood Potassium 10/11/17 10/11/17 10/11/17 02:23 03:00 03:18 WBC RBC Hgb Hct MCV MCH MCHC RDW Plt Count MPV Gran % Lymph % (Auto) Cannon % (Auto) Eos % (Auto) Baso % (Auto) Gran # Lymph # (Auto) Cannon # (Auto) Eos # (Auto) Baso # (Auto) ESR PT INR APTT pCO2 pO2 HCO3 ABG pH ABG Total CO2 ABG O2 Saturation ABG O2 Content ABG Base Excess ABG Hemoglobin ABG Carboxyhemoglobin POC ABG HHb (Measured) ABG Methemoglobin ABG O2 Capacity ABG Potassium VBG pH VBG pCO2 VBG HCO3 VBG Total CO2 VBG O2 Sat (Calc) VBG Base Excess VBG Potassium Hgb O2 Saturation Sodium 183 H* Chloride 136 H Glucose Lactate FiO2 Potassium 3.8 Carbon Dioxide 25 Anion Gap 26 H BUN 85 H Creatinine 2.4 H Est GFR ( Amer) 24 Est GFR (Non-Af Amer) 20 POC Glucose (mg/dL) 254 H 241 H Random Glucose 261 H Calcium 9.7 Total Bilirubin 0.8 AST 85 H ALT 95 H Alkaline Phosphatase 89 Troponin I Total Protein 7.6 Albumin 3.7 Globulin 3.8 Albumin/Globulin Ratio 1.0 L Procalcitonin Arterial Blood Potassium Venous Blood Potassium 10/11/17 10/11/17 10/11/17 04:02 04:06 04:10 WBC RBC Hgb Hct MCV MCH MCHC RDW Plt Count MPV Gran % Lymph % (Auto) Cannon % (Auto) Eos % (Auto) Baso % (Auto) Gran # Lymph # (Auto) Cannon # (Auto) Eos # (Auto) Baso # (Auto) ESR PT INR APTT pCO2 34 L pO2 31.0 L* HCO3 19.7 L ABG pH 7.37 ABG Total CO2 20.7 L ABG O2 Saturation 62.8 L ABG O2 Content ABG Base Excess -4.8 L ABG Hemoglobin ABG Carboxyhemoglobin POC ABG HHb (Measured) ABG Methemoglobin ABG O2 Capacity ABG Potassium 3.9 VBG pH VBG pCO2 VBG HCO3 VBG Total CO2 VBG O2 Sat (Calc) VBG Base Excess VBG Potassium Hgb O2 Saturation Sodium 174.0 H* Chloride 142.0 H Glucose 142 H Lactate 7.2 H* FiO2 32.0 Potassium Carbon Dioxide Anion Gap BUN Creatinine Est GFR ( Amer) Est GFR (Non-Af Amer) POC Glucose (mg/dL) 143 H 136 H Random Glucose Calcium Total Bilirubin AST ALT Alkaline Phosphatase Troponin I Total Protein Albumin Globulin Albumin/Globulin Ratio Procalcitonin Arterial Blood Potassium 3.9 Venous Blood Potassium 10/11/17 10/11/17 10/11/17 04:45 04:45 04:55 WBC 7.5 RBC 3.01 L Hgb 8.6 L D Hct 29.9 L MCV 99.3 MCH 28.6 MCHC 28.8 L RDW 14.6 H Plt Count 106 L MPV 13.0 H Gran % 62.0 Lymph % (Auto) 36.0 H Cannon % (Auto) 2.0 Eos % (Auto) 0.0 L Baso % (Auto) 0.0 Gran # 4.66 Lymph # (Auto) 2.7 Cannon # (Auto) 0.2 Eos # (Auto) 0.0 Baso # (Auto) 0.00 ESR 5 PT 31.2 H INR 2.66 H APTT 47.5 H pCO2 pO2 HCO3 ABG pH ABG Total CO2 ABG O2 Saturation ABG O2 Content ABG Base Excess ABG Hemoglobin ABG Carboxyhemoglobin POC ABG HHb (Measured) ABG Methemoglobin ABG O2 Capacity ABG Potassium VBG pH VBG pCO2 VBG HCO3 VBG Total CO2 VBG O2 Sat (Calc) VBG Base Excess VBG Potassium Hgb O2 Saturation Sodium 172 H* Chloride 144 H Glucose Lactate FiO2 Potassium 2.1 L* D Carbon Dioxide 13 L Anion Gap 17 BUN 48 H Creatinine 1.3 H Est GFR ( Amer) 48 Est GFR (Non-Af Amer) 40 POC Glucose (mg/dL) Random Glucose 66 L Calcium 4.6 L* Total Bilirubin 0.8 AST 36 D ALT 53 Alkaline Phosphatase 30 L D Troponin I 0.12 D Total Protein 3.2 L Albumin 1.2 L Globulin 2.0 Albumin/Globulin Ratio 0.6 L Procalcitonin Arterial Blood Potassium Venous Blood Potassium 10/11/17 10/11/17 10/11/17 05:00 05:25 07:17 WBC RBC Hgb Hct MCV MCH MCHC RDW Plt Count MPV Gran % Lymph % (Auto) Cannon % (Auto) Eos % (Auto) Baso % (Auto) Gran # Lymph # (Auto) Cannon # (Auto) Eos # (Auto) Baso # (Auto) ESR PT INR APTT pCO2 pO2 25 L HCO3 ABG pH ABG Total CO2 ABG O2 Saturation ABG O2 Content ABG Base Excess ABG Hemoglobin ABG Carboxyhemoglobin POC ABG HHb (Measured) ABG Methemoglobin ABG O2 Capacity ABG Potassium VBG pH 7.22 L VBG pCO2 38.0 L VBG HCO3 15.6 L VBG Total CO2 16.8 L VBG O2 Sat (Calc) 41.8 VBG Base Excess -11.4 L VBG Potassium 2.3 L* Hgb O2 Saturation Sodium 168.0 H* Chloride 144.0 H Glucose 85 Lactate 6.2 H* FiO2 21.0 Potassium Carbon Dioxide Anion Gap BUN Creatinine Est GFR ( Amer) Est GFR (Non-Af Amer) POC Glucose (mg/dL) 133 H 155 H Random Glucose Calcium Total Bilirubin AST ALT Alkaline Phosphatase Troponin I Total Protein Albumin Globulin Albumin/Globulin Ratio Procalcitonin Arterial Blood Potassium Venous Blood Potassium 2.3 L* 10/11/17 10/11/17 07:58 08:20 WBC RBC Hgb Hct MCV MCH MCHC RDW Plt Count MPV Gran % Lymph % (Auto) Cannon % (Auto) Eos % (Auto) Baso % (Auto) Gran # Lymph # (Auto) Cannon # (Auto) Eos # (Auto) Baso # (Auto) ESR PT INR APTT pCO2 41 pO2 86.0 HCO3 10.8 L ABG pH 7.03 L* ABG Total CO2 12.1 L ABG O2 Saturation 96.0 ABG O2 Content 12.8 L ABG Base Excess -19.0 L ABG Hemoglobin 9.6 L ABG Carboxyhemoglobin 1.4 POC ABG HHb (Measured) 3.9 ABG Methemoglobin 0.7 ABG O2 Capacity 13.3 L ABG Potassium VBG pH VBG pCO2 VBG HCO3 VBG Total CO2 VBG O2 Sat (Calc) VBG Base Excess VBG Potassium Hgb O2 Saturation 94.0 L Sodium Chloride Glucose Lactate FiO2 100.0 Potassium Carbon Dioxide Anion Gap BUN Creatinine Est GFR ( Amer) Est GFR (Non-Af Amer) POC Glucose (mg/dL) 151 H Random Glucose Calcium Total Bilirubin AST ALT Alkaline Phosphatase Troponin I Total Protein Albumin Globulin Albumin/Globulin Ratio Procalcitonin Arterial Blood Potassium Venous Blood Potassium Assessment & Plan - Assessment and Plan (Free Text) Plan: Assessment Consider severe sepsis with VDRF and acute encephalopathy and acute on chronic renal failure due to left lower lobe HCAP HTN S/P right hip replacement dementia Plan Started the patient on a dose of IV Vancomycin and started Merrem and Doxycycline pending blood, sputum cx, PCT, urine Legionella Ag; will also check rapid Flu test overall prognosis is poor will monitor clinically
--- NOTE | 2017-10-11 14:52 | CP.PCM.CON ---
<TankMichael - Last Filed: 10/11/17 16:26> History of Present Illness - History of Present Illness History of Present Illness: Neurology Consult Note - Dr. Diehl CC; AMS and lethargy HPI: 77 F with a PMHx of HTN, HLD, OA, and minimal verbal with dementia presented from [facility] to [facility] with complaints of constipation , fever and lethargy. Orders were given to help relieve pt's constipation while at [facility], however pt became more lethargic and experiencing respirator distress prompting further evaluation at [facility]. During evaluation at [facility], pt developed worsening blood pressure, increasing fever, and hypernatremia. Ordered Chest XR, blood cultures, urine cultures for septic work up and started on cefepime/vanc. Also ordered ABG with lactate to measure acid/base status - lactate is trending upwards, likely 2/2 tachycardia. Held lasix to maintain blood pressure. Given fever, tachycardia, and hypoxia, started on heparin drip in case of PE. Started bipap. Subsequently, patient was found to have pulseless electrical activity. ACLS protocol was initiated a total of 10 min of chest compressions, 5 rounds of epi, half bag amiodarone, 1 bolus of fluids, and one amp of D50 until ROSC was achieved. Patient was intubated, central line placed. Levophed started. HPI/ROS unavailable as pt is intubated and sedated. PMHX: HTN,HLD, dementia, constipation,OA rectal mass,anemia. PSHx: R hip fracture s/p ORIF. SHx: Denied as per chart review, resident of [facility] FamHx:: Non contributory. Advance Care Planning: The patient has an Advanced Directive,dated 2003. Her daughter Misti Salcido is named as health care POA Review of Systems - Review of Systems Systems not reviewed;Unavailable: Acuity of Condition, Altered Mental Status Past Patient History - Infectious Disease Hx of Infectious Diseases: None - Past Social History Smoking Status: Never Smoked - CARDIAC Hx Hypertension: Yes - PULMONARY Hx Respiratory Disorders: No - NEUROLOGICAL Hx Neurological Disorder: Yes Hx Dementia: Yes - RENAL Hx Chronic Kidney Disease: No - ENDOCRINE/METABOLIC Hx Endocrine Disorders: No - HEMATOLOGICAL/ONCOLOGICAL Hx Blood Disorders: No - INTEGUMENTARY Hx Dermatological Problems: No - MUSCULOSKELETAL/RHEUMATOLOGICAL Hx Musculoskeletal Disorders: Yes Hx Falls: Yes Hx Osteoporosis: Yes Hx Unsteady Gait: Yes - GASTROINTESTINAL Hx Gastrointestinal Disorders: No - GENITOURINARY/GYNECOLOGICAL Hx Genitourinary Disorders: No Hx Incontinence: Yes - PSYCHIATRIC Hx Psychophysiologic Disorder: No - SURGICAL HISTORY Hx Joint Replacement: Yes (R hip) - ANESTHESIA Hx Anesthesia: Yes Hx Anesthesia Reactions: No Hx Malignant Hyperthermia: No Meds Allergies/Adverse Reactions: Allergies Allergy/AdvReac Type Severity Reaction Status Date / Time No Known Allergies Allergy Unverified 07/29/17 02:26 - Medications Medications: Current Medications Albuterol/Ipratropium (Duoneb 3 Mg/0.5 Mg (3 Ml) Ud) 3 ml IH [id number] JONNY Last Admin: 10/11/17 13:35 Dose: 3 ml Albuterol/Ipratropium (Duoneb 3 Mg/0.5 Mg (3 Ml) Ud) 3 ml IH Q2H PRN PRN Reason: Shortness of Breath Hydrocortisone Sodium Succinate (Solu-Cortef) 50 mg IVP Q6 JONNY Last Admin: 10/11/17 11:21 Dose: 50 mg NOREPINEPHRINE BIT/0.9 % NACL (Levophed 4 Mg/ 250 Ml Ns Premixed) 4 mg in 250 mls @ 15 mls/hr IV .[id number] PRN; Protocol; 4 MCG/MIN PRN Reason: TITRATE PER MD ORDER Last Admin: 10/11/17 12:41 Dose: 25 mcg/min, 93.75 mls/hr Vasopressin 20 units/ Dextrose 101 mls @ 9.09 mls/hr IV .[id number] JONNY; 0.03 U/MIN PRN Reason: Protocol Last Admin: 10/11/17 08:20 Dose: 9.09 mls/hr Pantoprazole Sodium (Protonix 40mg Ivpb) 40 mg in 100 mls @ 20 mls/hr IVPB .Q5H JONNY Last Admin: 10/11/17 12:49 Dose: 20 mls/hr Sodium Bicarbonate 150 meq/ (Dextrose) 1,150 mls @ 100 mls/hr IV .[id number] JONNY Last Admin: 10/11/17 09:04 Dose: 100 mls/hr Fentanyl Citrate (Fentanyl Citrate/Sodium Chloride 1 Mg/100 Ml) 1,000 mcg in 100 mls @ 2 mls/hr IV .Q24H PRN; Protocol; 20 MCG/HR PRN Reason: TITRATE PER MD ORDER Last Admin: 10/11/17 11:58 Dose: 20 mcg/hr, 2 mls/hr Meropenem (Merrem Iv 1 Gm Premix) 50 mls @ 100 mls/hr IVPB Q12 JONNY PRN Reason: Protocol Last Admin: 10/11/17 12:43 Dose: 100 mls/hr Doxycycline Hyclate 100 mg/ (Sodium Chloride) 100 mls @ 100 mls/hr IVPB Q12 JONNY PRN Reason: Protocol Calcium Gluconate 1,000 mg/ (Dextrose) 110 mls @ 110 mls/hr IVPB ONCE ONE Stop: 10/11/17 15:17 Physical Exam - Constitutional Appears: Chronically Ill - Head Exam Head Exam: ATRAUMATIC, NORMAL INSPECTION, NORMOCEPHALIC - Eye Exam Eye Exam: EOMI, Normal appearance, PERRL Pupil Exam: NORMAL ACCOMODATION, PERRL - ENT Exam ENT Exam: Mucous Membranes Dry - Respiratory Exam Respiratory Exam: Decreased Breath Sounds - Cardiovascular Exam Cardiovascular Exam: REGULAR RHYTHM, +S1, +S2 - GI/Abdominal Exam GI & Abdominal Exam: Normal Bowel Sounds, Soft. absent: Tenderness - Skin Skin Exam: Dry, Intact, Normal Color, Warm Results - Vital Signs Recent Vital Signs: Last Vital Signs Temp 104.2 F H 10/11/17 05:30 Pulse 115 H 10/11/17 05:30 Resp 22 10/11/17 05:30 BP 73/32 L 10/11/17 08:20 Pulse Ox 90 L 10/11/17 05:30 - Labs Result Diagrams: 10/11/17 13:30 10/11/17 13:30 Labs: Laboratory Results - last 24 hr 10/10/17 10/10/17 10/10/17 18:30 18:55 19:35 WBC RBC Hgb Hct MCV MCH MCHC RDW Plt Count MPV Gran % Lymph % (Auto) Spencer % (Auto) Eos % (Auto) Baso % (Auto) Gran # Lymph # (Auto) Spencer # (Auto) Eos # (Auto) Baso # (Auto) ESR PT INR APTT pCO2 pO2 97 H HCO3 ABG pH ABG Total CO2 ABG O2 Saturation ABG O2 Content ABG Base Excess ABG Hemoglobin ABG Carboxyhemoglobin POC ABG HHb (Measured) ABG Methemoglobin ABG O2 Capacity ABG Potassium VBG pH 7.31 L VBG pCO2 52.0 VBG HCO3 26.2 VBG Total CO2 27.8 VBG O2 Sat (Calc) 97.4 H VBG Base Excess -0.7 L VBG Potassium 5.5 H Hgb O2 Saturation Sodium 170.0 H* Chloride 134.0 H Glucose > 750 H* Lactate 3.3 H Mechanical Rate FiO2 21.0 Tidal Volume PEEP Potassium Carbon Dioxide Anion Gap BUN Creatinine Est GFR ( Amer) Est GFR (Non-Af Amer) POC Glucose (mg/dL) > 500 H* Random Glucose Calcium Phosphorus Magnesium Total Bilirubin AST ALT Alkaline Phosphatase Troponin I C-Reactive Protein Total Protein Albumin Globulin Albumin/Globulin Ratio Procalcitonin 0.45 Arterial Blood Potassium Venous Blood Potassium 5.5 H Hepatitis A IgM Ab Hep Bs Antigen Hep B Core IgM Ab 10/10/17 10/10/17 10/10/17 20:14 21:04 22:02 WBC RBC Hgb Hct MCV MCH MCHC RDW Plt Count MPV Gran % Lymph % (Auto) Spencer % (Auto) Eos % (Auto) Baso % (Auto) Gran # Lymph # (Auto) Spencer # (Auto) Eos # (Auto) Baso # (Auto) ESR PT INR APTT pCO2 pO2 HCO3 ABG pH ABG Total CO2 ABG O2 Saturation ABG O2 Content ABG Base Excess ABG Hemoglobin ABG Carboxyhemoglobin POC ABG HHb (Measured) ABG Methemoglobin ABG O2 Capacity ABG Potassium VBG pH VBG pCO2 VBG HCO3 VBG Total CO2 VBG O2 Sat (Calc) VBG Base Excess VBG Potassium Hgb O2 Saturation Sodium Chloride Glucose Lactate Mechanical Rate FiO2 Tidal Volume PEEP Potassium Carbon Dioxide Anion Gap BUN Creatinine Est GFR ( Amer) Est GFR (Non-Af Amer) POC Glucose (mg/dL) > 500 H* 470 H* 469 H* Random Glucose Calcium Phosphorus Magnesium Total Bilirubin AST ALT Alkaline Phosphatase Troponin I C-Reactive Protein Total Protein Albumin Globulin Albumin/Globulin Ratio Procalcitonin Arterial Blood Potassium Venous Blood Potassium Hepatitis A IgM Ab Hep Bs Antigen Hep B Core IgM Ab 10/10/17 10/10/17 10/11/17 23:00 23:50 00:28 WBC RBC Hgb Hct MCV MCH MCHC RDW Plt Count MPV Gran % Lymph % (Auto) Spencer % (Auto) Eos % (Auto) Baso % (Auto) Gran # Lymph # (Auto) Spencer # (Auto) Eos # (Auto) Baso # (Auto) ESR PT INR APTT pCO2 pO2 HCO3 ABG pH ABG Total CO2 ABG O2 Saturation ABG O2 Content ABG Base Excess ABG Hemoglobin ABG Carboxyhemoglobin POC ABG HHb (Measured) ABG Methemoglobin ABG O2 Capacity ABG Potassium VBG pH VBG pCO2 VBG HCO3 VBG Total CO2 VBG O2 Sat (Calc) VBG Base Excess VBG Potassium Hgb O2 Saturation Sodium 182 H* Chloride 136 H Glucose Lactate Mechanical Rate FiO2 Tidal Volume PEEP Potassium 4.6 Carbon Dioxide 18 L Anion Gap 34 H BUN 82 H Creatinine 2.3 H Est GFR ( Amer) 25 Est GFR (Non-Af Amer) 21 POC Glucose (mg/dL) 392 H 361 H Random Glucose 447 H* D Calcium 9.5 Phosphorus Magnesium Total Bilirubin 0.7 AST 89 H D ALT 90 H Alkaline Phosphatase 97 Troponin I C-Reactive Protein Total Protein 7.3 Albumin 3.6 Globulin 3.7 Albumin/Globulin Ratio 1.0 L Procalcitonin Arterial Blood Potassium Venous Blood Potassium Hepatitis A IgM Ab Hep Bs Antigen Hep B Core IgM Ab 10/11/17 10/11/17 10/11/17 02:23 03:00 03:18 WBC RBC Hgb Hct MCV MCH MCHC RDW Plt Count MPV Gran % Lymph % (Auto) Spencer % (Auto) Eos % (Auto) Baso % (Auto) Gran # Lymph # (Auto) Spencer # (Auto) Eos # (Auto) Baso # (Auto) ESR PT INR APTT pCO2 pO2 HCO3 ABG pH ABG Total CO2 ABG O2 Saturation ABG O2 Content ABG Base Excess ABG Hemoglobin ABG Carboxyhemoglobin POC ABG HHb (Measured) ABG Methemoglobin ABG O2 Capacity ABG Potassium VBG pH VBG pCO2 VBG HCO3 VBG Total CO2 VBG O2 Sat (Calc) VBG Base Excess VBG Potassium Hgb O2 Saturation Sodium 183 H* Chloride 136 H Glucose Lactate Mechanical Rate FiO2 Tidal Volume PEEP Potassium 3.8 Carbon Dioxide 25 Anion Gap 26 H BUN 85 H Creatinine 2.4 H Est GFR ( Amer) 24 Est GFR (Non-Af Amer) 20 POC Glucose (mg/dL) 254 H 241 H Random Glucose 261 H Calcium 9.7 Phosphorus Magnesium Total Bilirubin 0.8 AST 85 H ALT 95 H Alkaline Phosphatase 89 Troponin I C-Reactive Protein Total Protein 7.6 Albumin 3.7 Globulin 3.8 Albumin/Globulin Ratio 1.0 L Procalcitonin Arterial Blood Potassium Venous Blood Potassium Hepatitis A IgM Ab Hep Bs Antigen Hep B Core IgM Ab 10/11/17 10/11/17 10/11/17 04:02 04:06 04:10 WBC RBC Hgb Hct MCV MCH MCHC RDW Plt Count MPV Gran % Lymph % (Auto) Spencer % (Auto) Eos % (Auto) Baso % (Auto) Gran # Lymph # (Auto) Spencer # (Auto) Eos # (Auto) Baso # (Auto) ESR PT INR APTT pCO2 34 L pO2 31.0 L* HCO3 19.7 L ABG pH 7.37 ABG Total CO2 20.7 L ABG O2 Saturation 62.8 L ABG O2 Content ABG Base Excess -4.8 L ABG Hemoglobin ABG Carboxyhemoglobin POC ABG HHb (Measured) ABG Methemoglobin ABG O2 Capacity ABG Potassium 3.9 VBG pH VBG pCO2 VBG HCO3 VBG Total CO2 VBG O2 Sat (Calc) VBG Base Excess VBG Potassium Hgb O2 Saturation Sodium 174.0 H* Chloride 142.0 H Glucose 142 H Lactate 7.2 H* Mechanical Rate FiO2 32.0 Tidal Volume PEEP Potassium Carbon Dioxide Anion Gap BUN Creatinine Est GFR ( Amer) Est GFR (Non-Af Amer) POC Glucose (mg/dL) 143 H 136 H Random Glucose Calcium Phosphorus Magnesium Total Bilirubin AST ALT Alkaline Phosphatase Troponin I C-Reactive Protein Total Protein Albumin Globulin Albumin/Globulin Ratio Procalcitonin Arterial Blood Potassium 3.9 Venous Blood Potassium Hepatitis A IgM Ab Hep Bs Antigen Hep B Core IgM Ab 10/11/17 10/11/17 10/11/17 04:45 04:45 04:45 WBC 7.5 RBC 3.01 L Hgb 8.6 L D Hct 29.9 L MCV 99.3 MCH 28.6 MCHC 28.8 L RDW 14.6 H Plt Count 106 L MPV 13.0 H Gran % 62.0 Lymph % (Auto) 36.0 H Spencer % (Auto) 2.0 Eos % (Auto) 0.0 L Baso % (Auto) 0.0 Gran # 4.66 Lymph # (Auto) 2.7 Spencer # (Auto) 0.2 Eos # (Auto) 0.0 Baso # (Auto) 0.00 ESR 5 PT INR APTT pCO2 pO2 HCO3 ABG pH ABG Total CO2 ABG O2 Saturation ABG O2 Content ABG Base Excess ABG Hemoglobin ABG Carboxyhemoglobin POC ABG HHb (Measured) ABG Methemoglobin ABG O2 Capacity ABG Potassium VBG pH VBG pCO2 VBG HCO3 VBG Total CO2 VBG O2 Sat (Calc) VBG Base Excess VBG Potassium Hgb O2 Saturation Sodium Chloride Glucose Lactate Mechanical Rate FiO2 Tidal Volume PEEP Potassium Carbon Dioxide Anion Gap BUN Creatinine Est GFR ( Amer) Est GFR (Non-Af Amer) POC Glucose (mg/dL) Random Glucose Calcium Phosphorus Magnesium Total Bilirubin AST ALT Alkaline Phosphatase Troponin I C-Reactive Protein 67.60 H Total Protein Albumin Globulin Albumin/Globulin Ratio Procalcitonin Arterial Blood Potassium Venous Blood Potassium Hepatitis A IgM Ab Negative Hep Bs Antigen Negative Hep B Core IgM Ab Negative 10/11/17 10/11/17 10/11/17 04:45 04:55 05:00 WBC RBC Hgb Hct MCV MCH MCHC RDW Plt Count MPV Gran % Lymph % (Auto) Spencer % (Auto) Eos % (Auto) Baso % (Auto) Gran # Lymph # (Auto) Spencer # (Auto) Eos # (Auto) Baso # (Auto) ESR PT 31.2 H INR 2.66 H APTT 47.5 H pCO2 pO2 25 L HCO3 ABG pH ABG Total CO2 ABG O2 Saturation ABG O2 Content ABG Base Excess ABG Hemoglobin ABG Carboxyhemoglobin POC ABG HHb (Measured) ABG Methemoglobin ABG O2 Capacity ABG Potassium VBG pH 7.22 L VBG pCO2 38.0 L VBG HCO3 15.6 L VBG Total CO2 16.8 L VBG O2 Sat (Calc) 41.8 VBG Base Excess -11.4 L VBG Potassium 2.3 L* Hgb O2 Saturation Sodium 172 H* 168.0 H* Chloride 144 H 144.0 H Glucose 85 Lactate 6.2 H* Mechanical Rate FiO2 21.0 Tidal Volume PEEP Potassium 2.1 L* D Carbon Dioxide 13 L Anion Gap 17 BUN 48 H Creatinine 1.3 H Est GFR ( Amer) 48 Est GFR (Non-Af Amer) 40 POC Glucose (mg/dL) Random Glucose 66 L Calcium 4.6 L* Phosphorus Magnesium Total Bilirubin 0.8 AST 36 D ALT 53 Alkaline Phosphatase 30 L D Troponin I 0.12 D C-Reactive Protein Total Protein 3.2 L Albumin 1.2 L Globulin 2.0 Albumin/Globulin Ratio 0.6 L Procalcitonin Arterial Blood Potassium Venous Blood Potassium 2.3 L* Hepatitis A IgM Ab Hep Bs Antigen Hep B Core IgM Ab 10/11/17 10/11/17 10/11/17 05:25 07:17 07:58 WBC RBC Hgb Hct MCV MCH MCHC RDW Plt Count MPV Gran % Lymph % (Auto) Spencer % (Auto) Eos % (Auto) Baso % (Auto) Gran # Lymph # (Auto) Spencer # (Auto) Eos # (Auto) Baso # (Auto) ESR PT INR APTT pCO2 pO2 HCO3 ABG pH ABG Total CO2 ABG O2 Saturation ABG O2 Content ABG Base Excess ABG Hemoglobin ABG Carboxyhemoglobin POC ABG HHb (Measured) ABG Methemoglobin ABG O2 Capacity ABG Potassium VBG pH VBG pCO2 VBG HCO3 VBG Total CO2 VBG O2 Sat (Calc) VBG Base Excess VBG Potassium Hgb O2 Saturation Sodium Chloride Glucose Lactate Mechanical Rate FiO2 Tidal Volume PEEP Potassium Carbon Dioxide Anion Gap BUN Creatinine Est GFR ( Amer) Est GFR (Non-Af Amer) POC Glucose (mg/dL) 133 H 155 H 151 H Random Glucose Calcium Phosphorus Magnesium Total Bilirubin AST ALT Alkaline Phosphatase Troponin I C-Reactive Protein Total Protein Albumin Globulin Albumin/Globulin Ratio Procalcitonin Arterial Blood Potassium Venous Blood Potassium Hepatitis A IgM Ab Hep Bs Antigen Hep B Core IgM Ab 10/11/17 10/11/17 10/11/17 08:20 11:23 13:30 WBC RBC Hgb Hct MCV MCH MCHC RDW Plt Count MPV Gran % Lymph % (Auto) Spencer % (Auto) Eos % (Auto) Baso % (Auto) Gran # Lymph # (Auto) Spencer # (Auto) Eos # (Auto) Baso # (Auto) ESR PT INR APTT 69.4 H pCO2 41 pO2 86.0 HCO3 10.8 L ABG pH 7.03 L* ABG Total CO2 12.1 L ABG O2 Saturation 96.0 ABG O2 Content 12.8 L ABG Base Excess -19.0 L ABG Hemoglobin 9.6 L ABG Carboxyhemoglobin 1.4 POC ABG HHb (Measured) 3.9 ABG Methemoglobin 0.7 ABG O2 Capacity 13.3 L ABG Potassium VBG pH VBG pCO2 VBG HCO3 VBG Total CO2 VBG O2 Sat (Calc) VBG Base Excess VBG Potassium Hgb O2 Saturation 94.0 L Sodium Chloride Glucose Lactate Mechanical Rate FiO2 100.0 Tidal Volume PEEP Potassium Carbon Dioxide Anion Gap BUN Creatinine Est GFR ( Amer) Est GFR (Non-Af Amer) POC Glucose (mg/dL) 62 L Random Glucose Calcium Phosphorus Magnesium Total Bilirubin AST ALT Alkaline Phosphatase Troponin I C-Reactive Protein Total Protein Albumin Globulin Albumin/Globulin Ratio Procalcitonin Arterial Blood Potassium Venous Blood Potassium Hepatitis A IgM Ab Hep Bs Antigen Hep B Core IgM Ab 10/11/17 10/11/17 10/11/17 13:30 13:30 13:55 WBC 8.6 RBC 3.49 L Hgb 9.7 L Hct 35.6 L MCV 102.0 MCH 27.8 MCHC 27.2 L RDW 15.0 H Plt Count 105 L MPV 12.8 H Gran % Lymph % (Auto) Spencer % (Auto) Eos % (Auto) Baso % (Auto) Gran # Lymph # (Auto) Spencer # (Auto) Eos # (Auto) Baso # (Auto) ESR PT INR APTT pCO2 33 L pO2 84.0 HCO3 10.5 L ABG pH 7.11 L* ABG Total CO2 11.5 L ABG O2 Saturation 97.0 ABG O2 Content ABG Base Excess -18.0 L ABG Hemoglobin ABG Carboxyhemoglobin POC ABG HHb (Measured) ABG Methemoglobin ABG O2 Capacity ABG Potassium 6.4 H* VBG pH VBG pCO2 VBG HCO3 VBG Total CO2 VBG O2 Sat (Calc) VBG Base Excess VBG Potassium Hgb O2 Saturation Sodium 169 H* 162.0 H* Chloride 134 H 135.0 H Glucose 277 H Lactate 13.2 H* Mechanical Rate 24 FiO2 100.0 Tidal Volume 350 PEEP 5 Potassium 6.2 H* D Carbon Dioxide 13 L Anion Gap 28 H BUN 68 H Creatinine 2.6 H Est GFR ( Amer) 22 Est GFR (Non-Af Amer) 18 POC Glucose (mg/dL) Random Glucose 264 H Calcium 8.0 L Phosphorus 6.6 H Magnesium 2.4 H Total Bilirubin 0.8 AST 1479 H ALT 549 H Alkaline Phosphatase 131 H D Troponin I C-Reactive Protein Total Protein 4.5 L Albumin 2.0 L Globulin 2.4 Albumin/Globulin Ratio 0.8 L Procalcitonin Arterial Blood Potassium 6.4 H* Venous Blood Potassium Hepatitis A IgM Ab Hep Bs Antigen Hep B Core IgM Ab Assessment & Plan - Assessment and Plan (Free Text) Assessment: 77 F with a PMHx of HTN, HLD, OA, and minimal verbal with dementia presented from [facility] to [facility] with complaints of constipation, fever and lethargy found to be in toxic metabolic syndrome likely causing her increasingly worsening mental status. Pt is currently unresponsive to verbal stimuli. Right upper extremity flaccid. Left upper extremity contracted. Lower extremities are also contracted. CT scan of the abdomen and pelvis and CXR is suggestive of left lower lobe consolidation. We will recommend judicious correction of sodium, no more than 12 units over 24 hrs. Continue medical management as per ICU team. <Brian Diehl - Last Filed: 10/11/17 17:29> Meds - Medications Medications: Current Medications Albuterol/Ipratropium (Duoneb 3 Mg/0.5 Mg (3 Ml) Ud) 3 ml IH [id number] [facility] Last Admin: 10/11/17 13:35 Dose: 3 ml Albuterol/Ipratropium (Duoneb 3 Mg/0.5 Mg (3 Ml) Ud) 3 ml IH Q2H PRN PRN Reason: Shortness of Breath Doxercalciferol (Hectorol) 1 mcg IV DAILY [facility] Hydrocortisone Sodium Succinate (Solu-Cortef) 50 mg IVP Q6 [facility] Last Admin: 10/11/17 11:21 Dose: 50 mg NOREPINEPHRINE BIT/0.9 % NACL (Levophed 4 Mg/ 250 Ml Ns Premixed) 4 mg in 250 mls @ 15 mls/hr IV .[id number] PRN; Protocol; 4 MCG/MIN PRN Reason: TITRATE PER MD ORDER Last Admin: 10/11/17 12:41 Dose: 25 mcg/min, 93.75 mls/hr Vasopressin 20 units/ Dextrose 101 mls @ 9.09 mls/hr IV .[id number] JONNY; 0.03 U/MIN PRN Reason: Protocol Last Admin: 10/11/17 08:20 Dose: 9.09 mls/hr Pantoprazole Sodium (Protonix 40mg Ivpb) 40 mg in 100 mls @ 20 mls/hr IVPB .Q5H [facility] Last Admin: 10/11/17 12:49 Dose: 20 mls/hr Sodium Bicarbonate 150 meq/ (Dextrose) 1,150 mls @ 100 mls/hr IV .[id number] [facility] Last Admin: 10/11/17 09:04 Dose: 100 mls/hr Fentanyl Citrate (Fentanyl Citrate/Sodium Chloride 1 Mg/100 Ml) 1,000 mcg in 100 mls @ 2 mls/hr IV .Q24H PRN; Protocol; 20 MCG/HR PRN Reason: TITRATE PER MD ORDER Last Admin: 10/11/17 11:58 Dose: 20 mcg/hr, 2 mls/hr Meropenem (Merrem Iv 1 Gm Premix) 50 mls @ 100 mls/hr IVPB Q12 JONNY PRN Reason: Protocol Last Admin: 10/11/17 12:43 Dose: 100 mls/hr Doxycycline Hyclate 100 mg/ (Sodium Chloride) 100 mls @ 100 mls/hr IVPB Q12 JONNY PRN Reason: Protocol Results - Vital Signs Recent Vital Signs: Last Vital Signs Temp 104.2 F H 10/11/17 05:30 Pulse 157 H 10/11/17 10:00 Resp 22 10/11/17 05:30 BP 73/32 L 10/11/17 08:20 Pulse Ox 90 L 10/11/17 05:30 - Labs Result Diagrams: 10/11/17 13:30 10/11/17 13:30 Labs: Laboratory Results - last 24 hr 10/10/17 10/10/17 10/10/17 18:30 18:55 19:35 WBC RBC Hgb Hct MCV MCH MCHC RDW Plt Count MPV Gran % Lymph % (Auto) Spencer % (Auto) Eos % (Auto) Baso % (Auto) Gran # Lymph # (Auto) Spencer # (Auto) Eos # (Auto) Baso # (Auto) ESR PT INR APTT pCO2 pO2 97 H HCO3 ABG pH ABG Total CO2 ABG O2 Saturation ABG O2 Content ABG Base Excess ABG Hemoglobin ABG Carboxyhemoglobin POC ABG HHb (Measured) ABG Methemoglobin ABG O2 Capacity ABG Potassium VBG pH 7.31 L VBG pCO2 52.0 VBG HCO3 26.2 VBG Total CO2 27.8 VBG O2 Sat (Calc) 97.4 H VBG Base Excess -0.7 L VBG Potassium 5.5 H Hgb O2 Saturation Sodium 170.0 H* Chloride 134.0 H Glucose > 750 H* Lactate 3.3 H Mechanical Rate FiO2 21.0 Tidal Volume PEEP Potassium Carbon Dioxide Anion Gap BUN Creatinine Est GFR ( Amer) Est GFR (Non-Af Amer) POC Glucose (mg/dL) > 500 H* Random Glucose Hemoglobin A1c Calcium Phosphorus Magnesium Total Bilirubin AST ALT Alkaline Phosphatase Troponin I C-Reactive Protein Total Protein Albumin Globulin Albumin/Globulin Ratio Procalcitonin 0.45 Arterial Blood Potassium Venous Blood Potassium 5.5 H Hepatitis A IgM Ab Hep Bs Antigen Hep B Core IgM Ab Hepatitis C Antibody 10/10/17 10/10/17 10/10/17 20:14 21:04 22:02 WBC RBC Hgb Hct MCV MCH MCHC RDW Plt Count MPV Gran % Lymph % (Auto) Spencer % (Auto) Eos % (Auto) Baso % (Auto) Gran # Lymph # (Auto) Spencer # (Auto) Eos # (Auto) Baso # (Auto) ESR PT INR APTT pCO2 pO2 HCO3 ABG pH ABG Total CO2 ABG O2 Saturation ABG O2 Content ABG Base Excess ABG Hemoglobin ABG Carboxyhemoglobin POC ABG HHb (Measured) ABG Methemoglobin ABG O2 Capacity ABG Potassium VBG pH VBG pCO2 VBG HCO3 VBG Total CO2 VBG O2 Sat (Calc) VBG Base Excess VBG Potassium Hgb O2 Saturation Sodium Chloride Glucose Lactate Mechanical Rate FiO2 Tidal Volume PEEP Potassium Carbon Dioxide Anion Gap BUN Creatinine Est GFR ( Amer) Est GFR (Non-Af Amer) POC Glucose (mg/dL) > 500 H* 470 H* 469 H* Random Glucose Hemoglobin A1c Calcium Phosphorus Magnesium Total Bilirubin AST ALT Alkaline Phosphatase Troponin I C-Reactive Protein Total Protein Albumin Globulin Albumin/Globulin Ratio Procalcitonin Arterial Blood Potassium Venous Blood Potassium Hepatitis A IgM Ab Hep Bs Antigen Hep B Core IgM Ab Hepatitis C Antibody 10/10/17 10/10/17 10/11/17 23:00 23:50 00:28 WBC RBC Hgb Hct MCV MCH MCHC RDW Plt Count MPV Gran % Lymph % (Auto) Spencer % (Auto) Eos % (Auto) Baso % (Auto) Gran # Lymph # (Auto) Spencer # (Auto) Eos # (Auto) Baso # (Auto) ESR PT INR APTT pCO2 pO2 HCO3 ABG pH ABG Total CO2 ABG O2 Saturation ABG O2 Content ABG Base Excess ABG Hemoglobin ABG Carboxyhemoglobin POC ABG HHb (Measured) ABG Methemoglobin ABG O2 Capacity ABG Potassium VBG pH VBG pCO2 VBG HCO3 VBG Total CO2 VBG O2 Sat (Calc) VBG Base Excess VBG Potassium Hgb O2 Saturation Sodium 182 H* Chloride 136 H Glucose Lactate Mechanical Rate FiO2 Tidal Volume PEEP Potassium 4.6 Carbon Dioxide 18 L Anion Gap 34 H BUN 82 H Creatinine 2.3 H Est GFR ( Amer) 25 Est GFR (Non-Af Amer) 21 POC Glucose (mg/dL) 392 H 361 H Random Glucose 447 H* D Hemoglobin A1c Calcium 9.5 Phosphorus Magnesium Total Bilirubin 0.7 AST 89 H D ALT 90 H Alkaline Phosphatase 97 Troponin I C-Reactive Protein Total Protein 7.3 Albumin 3.6 Globulin 3.7 Albumin/Globulin Ratio 1.0 L Procalcitonin Arterial Blood Potassium Venous Blood Potassium Hepatitis A IgM Ab Hep Bs Antigen Hep B Core IgM Ab Hepatitis C Antibody 10/11/17 10/11/17 10/11/17 02:23 03:00 03:18 WBC RBC Hgb Hct MCV MCH MCHC RDW Plt Count MPV Gran % Lymph % (Auto) Spencer % (Auto) Eos % (Auto) Baso % (Auto) Gran # Lymph # (Auto) Spencer # (Auto) Eos # (Auto) Baso # (Auto) ESR PT INR APTT pCO2 pO2 HCO3 ABG pH ABG Total CO2 ABG O2 Saturation ABG O2 Content ABG Base Excess ABG Hemoglobin ABG Carboxyhemoglobin POC ABG HHb (Measured) ABG Methemoglobin ABG O2 Capacity ABG Potassium VBG pH VBG pCO2 VBG HCO3 VBG Total CO2 VBG O2 Sat (Calc) VBG Base Excess VBG Potassium Hgb O2 Saturation Sodium 183 H* Chloride 136 H Glucose Lactate Mechanical Rate FiO2 Tidal Volume PEEP Potassium 3.8 Carbon Dioxide 25 Anion Gap 26 H BUN 85 H Creatinine 2.4 H Est GFR ( Amer) 24 Est GFR (Non-Af Amer) 20 POC Glucose (mg/dL) 254 H 241 H Random Glucose 261 H Hemoglobin A1c Calcium 9.7 Phosphorus Magnesium Total Bilirubin 0.8 AST 85 H ALT 95 H Alkaline Phosphatase 89 Troponin I C-Reactive Protein Total Protein 7.6 Albumin 3.7 Globulin 3.8 Albumin/Globulin Ratio 1.0 L Procalcitonin Arterial Blood Potassium Venous Blood Potassium Hepatitis A IgM Ab Hep Bs Antigen Hep B Core IgM Ab Hepatitis C Antibody 10/11/17 10/11/17 10/11/17 04:02 04:06 04:10 WBC RBC Hgb Hct MCV MCH MCHC RDW Plt Count MPV Gran % Lymph % (Auto) Spencer % (Auto) Eos % (Auto) Baso % (Auto) Gran # Lymph # (Auto) Spencer # (Auto) Eos # (Auto) Baso # (Auto) ESR PT INR APTT pCO2 34 L pO2 31.0 L* HCO3 19.7 L ABG pH 7.37 ABG Total CO2 20.7 L ABG O2 Saturation 62.8 L ABG O2 Content ABG Base Excess -4.8 L ABG Hemoglobin ABG Carboxyhemoglobin POC ABG HHb (Measured) ABG Methemoglobin ABG O2 Capacity ABG Potassium 3.9 VBG pH VBG pCO2 VBG HCO3 VBG Total CO2 VBG O2 Sat (Calc) VBG Base Excess VBG Potassium Hgb O2 Saturation Sodium 174.0 H* Chloride 142.0 H Glucose 142 H Lactate 7.2 H* Mechanical Rate FiO2 32.0 Tidal Volume PEEP Potassium Carbon Dioxide Anion Gap BUN Creatinine Est GFR ( Amer) Est GFR (Non-Af Amer) POC Glucose (mg/dL) 143 H 136 H Random Glucose Hemoglobin A1c Calcium Phosphorus Magnesium Total Bilirubin AST ALT Alkaline Phosphatase Troponin I C-Reactive Protein Total Protein Albumin Globulin Albumin/Globulin Ratio Procalcitonin Arterial Blood Potassium 3.9 Venous Blood Potassium Hepatitis A IgM Ab Hep Bs Antigen Hep B Core IgM Ab Hepatitis C Antibody 10/11/17 10/11/17 10/11/17 04:45 04:45 04:45 WBC 7.5 RBC 3.01 L Hgb 8.6 L D Hct 29.9 L MCV 99.3 MCH 28.6 MCHC 28.8 L RDW 14.6 H Plt Count 106 L MPV 13.0 H Gran % 62.0 Lymph % (Auto) 36.0 H Spencer % (Auto) 2.0 Eos % (Auto) 0.0 L Baso % (Auto) 0.0 Gran # 4.66 Lymph # (Auto) 2.7 Spencer # (Auto) 0.2 Eos # (Auto) 0.0 Baso # (Auto) 0.00 ESR 5 PT INR APTT pCO2 pO2 HCO3 ABG pH ABG Total CO2 ABG O2 Saturation ABG O2 Content ABG Base Excess ABG Hemoglobin ABG Carboxyhemoglobin POC ABG HHb (Measured) ABG Methemoglobin ABG O2 Capacity ABG Potassium VBG pH VBG pCO2 VBG HCO3 VBG Total CO2 VBG O2 Sat (Calc) VBG Base Excess VBG Potassium Hgb O2 Saturation Sodium Chloride Glucose Lactate Mechanical Rate FiO2 Tidal Volume PEEP Potassium Carbon Dioxide Anion Gap BUN Creatinine Est GFR ( Amer) Est GFR (Non-Af Amer) POC Glucose (mg/dL) Random Glucose Hemoglobin A1c Calcium Phosphorus Magnesium Total Bilirubin AST ALT Alkaline Phosphatase Troponin I C-Reactive Protein 67.60 H Total Protein Albumin Globulin Albumin/Globulin Ratio Procalcitonin Arterial Blood Potassium Venous Blood Potassium Hepatitis A IgM Ab Negative Hep Bs Antigen Negative Hep B Core IgM Ab Negative Hepatitis C Antibody Reactive 10/11/17 10/11/17 10/11/17 04:45 04:55 05:00 WBC RBC Hgb Hct MCV MCH MCHC RDW Plt Count MPV Gran % Lymph % (Auto) Spencer % (Auto) Eos % (Auto) Baso % (Auto) Gran # Lymph # (Auto) Spencer # (Auto) Eos # (Auto) Baso # (Auto) ESR PT 31.2 H INR 2.66 H APTT 47.5 H pCO2 pO2 25 L HCO3 ABG pH ABG Total CO2 ABG O2 Saturation ABG O2 Content ABG Base Excess ABG Hemoglobin ABG Carboxyhemoglobin POC ABG HHb (Measured) ABG Methemoglobin ABG O2 Capacity ABG Potassium VBG pH 7.22 L VBG pCO2 38.0 L VBG HCO3 15.6 L VBG Total CO2 16.8 L VBG O2 Sat (Calc) 41.8 VBG Base Excess -11.4 L VBG Potassium 2.3 L* Hgb O2 Saturation Sodium 172 H* 168.0 H* Chloride 144 H 144.0 H Glucose 85 Lactate 6.2 H* Mechanical Rate FiO2 21.0 Tidal Volume PEEP Potassium 2.1 L* D Carbon Dioxide 13 L Anion Gap 17 BUN 48 H Creatinine 1.3 H Est GFR ( Amer) 48 Est GFR (Non-Af Amer) 40 POC Glucose (mg/dL) Random Glucose 66 L Hemoglobin A1c Calcium 4.6 L* Phosphorus Magnesium Total Bilirubin 0.8 AST 36 D ALT 53 Alkaline Phosphatase 30 L D Troponin I 0.12 D C-Reactive Protein Total Protein 3.2 L Albumin 1.2 L Globulin 2.0 Albumin/Globulin Ratio 0.6 L Procalcitonin Arterial Blood Potassium Venous Blood Potassium 2.3 L* Hepatitis A IgM Ab Hep Bs Antigen Hep B Core IgM Ab Hepatitis C Antibody 10/11/17 10/11/17 10/11/17 05:25 07:17 07:58 WBC RBC Hgb Hct MCV MCH MCHC RDW Plt Count MPV Gran % Lymph % (Auto) Spencer % (Auto) Eos % (Auto) Baso % (Auto) Gran # Lymph # (Auto) Spencer # (Auto) Eos # (Auto) Baso # (Auto) ESR PT INR APTT pCO2 pO2 HCO3 ABG pH ABG Total CO2 ABG O2 Saturation ABG O2 Content ABG Base Excess ABG Hemoglobin ABG Carboxyhemoglobin POC ABG HHb (Measured) ABG Methemoglobin ABG O2 Capacity ABG Potassium VBG pH VBG pCO2 VBG HCO3 VBG Total CO2 VBG O2 Sat (Calc) VBG Base Excess VBG Potassium Hgb O2 Saturation Sodium Chloride Glucose Lactate Mechanical Rate FiO2 Tidal Volume PEEP Potassium Carbon Dioxide Anion Gap BUN Creatinine Est GFR ( Amer) Est GFR (Non-Af Amer) POC Glucose (mg/dL) 133 H 155 H 151 H Random Glucose Hemoglobin A1c Calcium Phosphorus Magnesium Total Bilirubin AST ALT Alkaline Phosphatase Troponin I C-Reactive Protein Total Protein Albumin Globulin Albumin/Globulin Ratio Procalcitonin Arterial Blood Potassium Venous Blood Potassium Hepatitis A IgM Ab Hep Bs Antigen Hep B Core IgM Ab Hepatitis C Antibody 10/11/17 10/11/17 10/11/17 08:20 11:23 11:50 WBC RBC Hgb Hct MCV MCH MCHC RDW Plt Count MPV Gran % Lymph % (Auto) Spencer % (Auto) Eos % (Auto) Baso % (Auto) Gran # Lymph # (Auto) Spencer # (Auto) Eos # (Auto) Baso # (Auto) ESR PT INR APTT pCO2 41 pO2 86.0 HCO3 10.8 L ABG pH 7.03 L* ABG Total CO2 12.1 L ABG O2 Saturation 96.0 ABG O2 Content 12.8 L ABG Base Excess -19.0 L ABG Hemoglobin 9.6 L ABG Carboxyhemoglobin 1.4 POC ABG HHb (Measured) 3.9 ABG Methemoglobin 0.7 ABG O2 Capacity 13.3 L ABG Potassium VBG pH VBG pCO2 VBG HCO3 VBG Total CO2 VBG O2 Sat (Calc) VBG Base Excess VBG Potassium Hgb O2 Saturation 94.0 L Sodium Chloride Glucose Lactate Mechanical Rate FiO2 100.0 Tidal Volume PEEP Potassium Carbon Dioxide Anion Gap BUN Creatinine Est GFR ( Amer) Est GFR (Non-Af Amer) POC Glucose (mg/dL) 62 L Random Glucose Hemoglobin A1c 11.7 H Calcium Phosphorus Magnesium Total Bilirubin AST ALT Alkaline Phosphatase Troponin I C-Reactive Protein Total Protein Albumin Globulin Albumin/Globulin Ratio Procalcitonin Arterial Blood Potassium Venous Blood Potassium Hepatitis A IgM Ab Hep Bs Antigen Hep B Core IgM Ab Hepatitis C Antibody 10/11/17 10/11/17 10/11/17 13:30 13:30 13:30 WBC 8.6 RBC 3.49 L Hgb 9.7 L Hct 35.6 L MCV 102.0 MCH 27.8 MCHC 27.2 L RDW 15.0 H Plt Count 105 L MPV 12.8 H Gran % Lymph % (Auto) Spencer % (Auto) Eos % (Auto) Baso % (Auto) Gran # Lymph # (Auto) Spencer # (Auto) Eos # (Auto) Baso # (Auto) ESR PT INR APTT 69.4 H pCO2 pO2 HCO3 ABG pH ABG Total CO2 ABG O2 Saturation ABG O2 Content ABG Base Excess ABG Hemoglobin ABG Carboxyhemoglobin POC ABG HHb (Measured) ABG Methemoglobin ABG O2 Capacity ABG Potassium VBG pH VBG pCO2 VBG HCO3 VBG Total CO2 VBG O2 Sat (Calc) VBG Base Excess VBG Potassium Hgb O2 Saturation Sodium 169 H* Chloride 134 H Glucose Lactate Mechanical Rate FiO2 Tidal Volume PEEP Potassium 6.2 H* D Carbon Dioxide 13 L Anion Gap 28 H BUN 68 H Creatinine 2.6 H Est GFR ( Amer) 22 Est GFR (Non-Af Amer) 18 POC Glucose (mg/dL) Random Glucose 264 H Hemoglobin A1c Calcium 8.0 L Phosphorus 6.6 H Magnesium 2.4 H Total Bilirubin 0.8 AST 1479 H ALT 549 H Alkaline Phosphatase 131 H D Troponin I C-Reactive Protein Total Protein 4.5 L Albumin 2.0 L Globulin 2.4 Albumin/Globulin Ratio 0.8 L Procalcitonin Arterial Blood Potassium Venous Blood Potassium Hepatitis A IgM Ab Hep Bs Antigen Hep B Core IgM Ab Hepatitis C Antibody 10/11/17 10/11/17 13:55 14:51 WBC RBC Hgb Hct MCV MCH MCHC RDW Plt Count MPV Gran % Lymph % (Auto) Spencer % (Auto) Eos % (Auto) Baso % (Auto) Gran # Lymph # (Auto) Spencer # (Auto) Eos # (Auto) Baso # (Auto) ESR PT INR APTT pCO2 33 L pO2 84.0 HCO3 10.5 L ABG pH 7.11 L* ABG Total CO2 11.5 L ABG O2 Saturation 97.0 ABG O2 Content ABG Base Excess -18.0 L ABG Hemoglobin ABG Carboxyhemoglobin POC ABG HHb (Measured) ABG Methemoglobin ABG O2 Capacity ABG Potassium 6.4 H* VBG pH VBG pCO2 VBG HCO3 VBG Total CO2 VBG O2 Sat (Calc) VBG Base Excess VBG Potassium Hgb O2 Saturation Sodium 162.0 H* Chloride 135.0 H Glucose 277 H Lactate 13.2 H* Mechanical Rate 24 FiO2 100.0 Tidal Volume 350 PEEP 5 Potassium Carbon Dioxide Anion Gap BUN Creatinine Est GFR ( Amer) Est GFR (Non-Af Amer) POC Glucose (mg/dL) 193 H Random Glucose Hemoglobin A1c Calcium Phosphorus Magnesium Total Bilirubin AST ALT Alkaline Phosphatase Troponin I C-Reactive Protein Total Protein Albumin Globulin Albumin/Globulin Ratio Procalcitonin Arterial Blood Potassium 6.4 H* Venous Blood Potassium Hepatitis A IgM Ab Hep Bs Antigen Hep B Core IgM Ab Hepatitis C Antibody Attending/Attestation - Attestation I have personally seen and examined this patient.: Yes I have fully participated in the care of the patient.: Yes I have reviewed all pertinent clinical information: Yes
[2017-10-11] MEDS ORDERED: WATER FOR INJECTION IV SCH (15:15)
[2017-10-11] MEDS ORDERED: Sodium Bicarbonate (8.4%) 50 Meq Syringe IVP ONE (16:53)
[2017-10-11 16:58] LABS: HEPATITIS C ANTIBODY REACTIVE (NEGATIVE)
--- NOTE | 2017-10-11 18:22 | CARD ---
APPROVED REPORT EKG Measurement Heart [id number] <Conclusion> Normal sinus rhythm Left axis deviation Low voltage QRS Nonspecific T wave abnormality Abnormal ECG
[2017-10-11 20:38] LABS: VENOUS BLOOD GAS BASE EXCESS -12.5 mmol/L (0.0-2.0); VENOUS BLOOD GAS PO2 60 mm/Hg (30-55); VENOUS BLOOD PH 7.24 (7.32-7.43)
[2017-10-11 21:00] LABS: CALCIUM 7.9 mg/dL (8.4-10.5)
[2017-10-11] MEDS: Insulin Reg-MEDIUM-Coverage SC SCH (22:18)
--- NOTE | 2017-10-11 23:38 | PN ---
DATE: SUBJECTIVE: The patient is 77 years old who was admitted yesterday after she had high grade fever. She was found to have pneumonia. This morning she went into cardiac arrest , has upper GI bleed with coffee-ground vomitus. She was resuscitated and intubated, currently on vent. PHYSICAL EXAMINATION: VITAL SIGNS: She is afebrile, pulse , respirations 18, blood pressure 73/32. LUNGS: Bilateral soft crackle. HEART: S1 and S2 audible. ABDOMEN: Soft. Nasogastric tube in place, has coffee-ground stuff being drained. NEUROLOGICAL: She is unresponsive. EXTREMITIES: Bilateral leg, no edema. LABORATORY EXAM: Sodium 169, potassium 6.2, chloride 134, CO2 13, BUN 68, creatinine 2.8, blood sugar of . WBC 8.6, hemoglobin 9.7, hematocrit 35.6, platelets of 105, PTT is 69.4. Her blood cultures are negative. Urine culture is pending. EKG shows normal sinus rhythm, left axis deviation. Low voltage criteria. ASSESSMENT AND PLAN: 1. Respiratory failure. 2. Septic shock. 3. Upper gastrointestinal bleed. 4. Dementia. 5. Hypernatremia. 6. Acute renal failure. PLAN: So plan is currently, the patient is on pressor. We will reach out to the family. She is full code. She is getting nebulizer treatment. She was given calcium gluconate. She is on IV doxycycline. She is on meropenem. Prognosis is poor. Family is aware. We will continue current treatment and we will follow up CBC, CMP in a.m. Davon Marie MD
[2017-10-12] MEDS: Albuterol-Ipratrop 3 mg / 0.5 (3 ml) UD IH SCH ×4 (01:05→20:48)
[2017-10-12 01:06] LABS: VENOUS BLOOD GAS BASE EXCESS -8.5 mmol/L (0.0-2.0); VENOUS BLOOD GAS PO2 36 mm/Hg (30-55); VENOUS BLOOD PH 7.32 (7.32-7.43)
[2017-10-12] MEDS: NOREPINEPHRINE BIT/0.9 % NACL 4 MG/250 ML BAG IV PRN (03:16)
--- NOTE | 2017-10-12 04:03 | CON ---
DATE: 10/11/2017 REASON FOR CONSULTATION: Severe hypernatremia, hypokalemia, acute kidney injury, status post cardiac arrest. HISTORY OF PRESENT ILLNESS: This is a 77-year-old lady previously unknown to me, was brought to the emergency room from the detention because of altered mental status, lethargy. She was found to be febrile. She was found to be in altered in the emergency room. Family members are at bedside. She did report that she was constipated in the detention. Also she became hypoxic. The patient was in the detention, status post right hip replacement. She has baseline severe dementia. In the emergency room, she was found to have a sodium of 182. The patient was admitted to the ICU. Early this morning, she became lethargic. She was coded. She is now on a respirator. She is currently sedated. She is on Levophed and vasopressin. She is also found to have a drop in Her hemoglobin. Her hemoglobin dropped from 11.7 to 8.6. She is having positive coffee-ground. Initial blood work showed a sodium of 172 and a potassium of 2.1 with a BUN of 48 and creatinine of 1.3. The patient has been receiving potassium supplementation. She has been receiving IV fluids, D5W with 3 ampules of bicarbonate. Today's blood work shows a sodium of 169 and a potassium of 6.2. Her BUN has risen to 68 and her creatinine is 2.6. Also, she is in acute liver failure. Her AST has risen to 1479 and her ALT is 549. PAST MEDICAL / SURGICAL HISTORY: Severe dementia, hypertension, rectal mass, history of rectal bleeding, recent right hip replacement. FAMILY HISTORY: Noncontributory. SOCIAL HISTORY: [facility] resident. ALLERGIES: NO KNOWN DRUG ALLERGIES. MEDICATIONS: In the detention included Colace, B12, diltiazem 60 mg q. 12, lactulose 20 b.i.d., Pepcid, Celebrex, calcium, Lipitor, aspirin. REVIEW OF SYSTEMS: Unavailable since the patient is unresponsive on mechanical ventilation in the ICU. PHYSICAL EXAMINATION: GENERAL: Elderly lady lying in bed in the ICU, on mechanical ventilation on two pressors. VITAL SIGNS: Blood pressure 73/32, heart rate 157, respiratory rate 22, temperature 104.2. HEENT: Normocephalic, atraumatic, positive icterus, positive chemosis, pupils sluggish. NECK: Supple, no JVD. LUNGS: Bilateral equal entry, bilateral equal expansion, no rales appreciated anteriorly. CARDIAC: S1, S2, regular rate and rhythm, no murmur, no rub. ABDOMEN: Soft, nondistended, bowel sounds present. EXTREMITIES: Trace lower extremity edema, no clubbing, no cyanosis. INTAKE AND OUTPUT: Not charted. LABORATORY DATA: WBC 8.6, hemoglobin 9.7, hematocrit 35.6, platelets 105. Sodium 169, potassium 6.2, chloride 134, CO2 13, BUN 68, creatinine 2.6, glucose is 64, calcium 8.0, phosphorus 6.6, magnesium 2.4, AST 1479, ALT 549, albumin 2.0. PH 7.1, pCO2 33, pO2 84. Urinalysis; yellow, clear. PH 5.5, specific gravity 1025, protein 30, glucose greater than 1000, blood large, leukocyte esterase small, HCV antibody positive, INR 2.6. CT of the abdomen and pelvis, highly suspicious for pneumonia on the left lung base. No significant acute inflammatory process in the abdomen. CURRENT MEDICATIONS: Doxycycline 100 q. 12, DuoNeb, norepinephrine 25 mcg per minute, Merrem 1 g q. 12, Protonix, sodium bicarbonate, D5W at 100, Solu-Cortef 50 q. 6, vasopressin. The patient also received calcium gluconate, total of 5 g, Cardizem 100 mg, Cefepime 500 mg. ASSESSMENT: 1. Multiorgan dysfunction. 2. Septic shock. 3. Respiratory failure. 4. Acute kidney injury, oligoanuric. 5. Shock liver. 6. Respiratory failure, left pneumonia. 7. Advanced dementia. 8. ? gastrointestinal bleed. 9. Severe hypernatremia. 10. Hyperkalemia. 11. Severe anion gap metabolic acidosis. 12. Severe hypocalcemia. PLAN: 1. Continue D5W with 3 ampules of bicarbonate. 2. In addition, give sodium bicarbonate IV push. 3. Check vitamin D and intact PTH. 4. Continue IV calcium. 5. Give Hectorol IV. 6. Repeat potassium. 7. Agree with empiric antibiotics. 8. Dose all antibiotics for creatinine clearance 10 to 30 mL/minute. 9. Prognosis is extremely poor. 10. Continue to monitor in the ICU. 11. 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 More than 35 minutes of time spent on the care of this critically ill patient. Brittanie Turk MD
[2017-10-12] MEDS: Vasopressin 20 UNITS in Dextrose 5% In Water 100 ML IV SCH ×2 (05:01→18:26)
[2017-10-12] MEDS: Pantoprazole 40mg/100mL NS 40 MG/100 ML BAG IVPB SCH (05:02)
[2017-10-12] MEDS: Insulin Reg-MEDIUM-Coverage SC SCH (05:22)
[2017-10-12 06:42] LABS: VENOUS BLOOD GAS BASE EXCESS -5.8 mmol/L (0.0-2.0); VENOUS BLOOD GAS PO2 55 mm/Hg (30-55); VENOUS BLOOD PH 7.33 (7.32-7.43)
[2017-10-12 06:44] LABS: BASO # 0.02 K/mm3 (0.0-2.0); BASO % 0.1 % (0.0-3.0); GRAN % 85.7 % (50.0-68.0); HEMOGLOBIN 9.2 g/dL (12.0-16.0); LYMPH # 2.1 (1.2-3.4); MEAN CELL VOLUME 96.1 fl (80.0-105.0); MEAN CORPUSCULAR HEMOGLOBIN 27.7 pg (25.0-35.0); MEAN CORPUSCULAR HGB CONC 28.8 g/dl (31.0-37.0); MONO # 0.2 (0.1-0.6); MONO % 1.2 % (1.0-6.0); RBC 3.32 10^6/uL (3.5-6.1); RED CELL DISTRIBUTION WIDTH 14.7 % (11.5-14.5); WHITE BLOOD COUNT 15.9 10^3/ul (4.5-11.0)
[2017-10-12 06:59] LABS: INR 2.71 (0.93-1.08); PARTIAL THROMBOPLASTIN TIME 33.6 Seconds (25.1-36.5); PROTHROMBIN TIME 31.8 SECONDS (9.4-12.5)
[2017-10-12 07:07] LABS: PLATELET COUNT 30 10^3/uL (120.0-450.0)
[2017-10-12 07:36] LABS: ALB/GLOB RATIO 0.8 (1.1-1.8); ALBUMIN 2.1 g/dL (3.0-4.8); ALT/SGPT 744 U/L (7-56); BLOOD UREA NITROGEN 77 mg/dL (7-21); CALCIUM 7.2 mg/dL (8.4-10.5); GFR AFRICAN-AMERICAN 16; GFR NON-AFRICAN AMERICAN 14; HDL CHOLESTEROL 12 mg/dL (29-60); LDL CHOLESTEROL < 30 mg/dL (0-129)
[2017-10-12 07:59] LABS: AST/SGOT 2286 U/L (14-36)
[2017-10-12] MEDS: Insulin Regular 100 UNITS in Sodium Chloride 0.9% 99 ML IV PRN ×2 (08:19→23:06)
[2017-10-12 08:37] LABS: ARTERIAL BLOOD GAS HCO3 19.2 mmol/L (21-28); ARTERIAL BLOOD GAS O2 SAT 95.2 % (95-98); ARTERIAL BLOOD GAS PCO2 29 mm/Hg (35-45); ARTERIAL BLOOD GAS PH 7.43 (7.35-7.45); ARTERIAL BLOOD GAS TCO2 20.1 mmol.L (22-28)
--- NOTE | 2017-10-12 08:39 | CP.CCUPN ---
<Soto Moura - Last Filed: 10/12/17 10:32> CCU Subjective - Physician Review Subjective (Free Text): Patient seen and examined at bedside. Patient currently intubated with PRVC 80 5 16 350 CCU Objective - Vital Signs / Intake & Output Vital Signs (Last 4 hours): Vital Signs Pulse BP 10/12/17 06:00 82 10/12/17 05:01 117/51 L Intake and Output (Last 8hrs): Intake & Output 10/11/17 10/12/17 10/12/17 22:59 06:59 14:59 Intake Total 3876 2084 Output Total 325 150 Balance 3551 1934 Intake: IV 3276 2084 Left Femoral 2708 1834 Left Hand 218 Right Upper arm 100 Tube Feeding 600 Output: Gastric Amount 200 Stomach 200 Urine 125 150 Urethral (Alexandre) 125 150 Other: # Bowel Movements 2 - Physical Exam Head: Positive for: Atraumatic, Normocephalic Pupils: Positive for: Non-Reactive Extroacular Muscles: Positive for: EOMI Conjunctiva: Positive for: Normal Mouth: Positive for: Moist Mucous Membranes, Other (intubated, gag reflex intact ) Neck: Positive for: Normal Range of Motion Respiratory/Chest: Positive for: Good Air Exchange, Rales. Negative for: Respiratory Distress, Accessory Muscle Use, Wheezes Cardiovascular: Positive for: Regular Rate and Rhythm, Normal S1, S2. Negative for: Murmurs Abdomen: Negative for: Tenderness, Distention, Peritoneal Signs Back: Positive for: Normal Inspection Upper Extremity: Positive for: Normal Inspection. Negative for: Cyanosis, Edema Lower Extremity: Positive for: Normal Inspection. Negative for: Edema Neurological: Positive for: GCS=15 Skin: Positive for: Dry, Normal Color, Cold. Negative for: Rashes Psychiatric: Negative for: Oriented x 3 (oriented x 2) - Medications Active Medications: Active Medications Generic Name Dose Route Start Last Admin Trade Name Freq PRN Reason Stop Dose Admin Albuterol/Ipratropium 3 ml 10/11/17 02:00 10/12/17 07:12 Duoneb 3 Mg/0.5 Mg (3 Ml) Ud IH 3 ml [id number] JONNY Administration Albuterol/Ipratropium 3 ml 10/10/17 23:20 Duoneb 3 Mg/0.5 Mg (3 Ml) Ud IH Q2H PRN Shortness of Breath Doxercalciferol 1 mcg 10/12/17 10:00 Hectorol IV DAILY JONNY Hydrocortisone Sodium Succinate 50 mg 10/11/17 12:00 10/12/17 05:15 Solu-Cortef IVP 50 mg Q6 JONNY Administration NOREPINEPHRINE BIT/0.9 % NACL 4 mg in 250 mls @ 15 mls/hr 10/11/17 06:47 03:16 Levophed 4 Mg/ 250 Ml Ns Premixed IV 15.01 mcg/min .[id number] PRN 56.3 mls/hr TITRATE PER MD ORDER Administration Protocol 4 MCG/MIN Vasopressin 20 units/ Dextrose 101 mls @ 9.09 mls/hr 10/11/17 07:30 10/12/17 05:01 IV 9.09 mls/hr .[id number] JONNY Administration Protocol 0.03 U/MIN Sodium Bicarbonate 150 meq/ 1,150 mls @ 100 mls/hr 10/11/17 08:45 10/11/17 21 :20 Dextrose IV 100 mls/hr .[id number] JONNY Administration Fentanyl Citrate 1,000 mcg in 100 mls @ 2 mls/hr 10/11/17 11:07 10/11/17 11: 58 Fentanyl Citrate/Sodium Chloride 1 Mg/100 Ml IV 20 mcg/hr .Q24H PRN 2 mls/hr TITRATE PER MD ORDER Administration Protocol 20 MCG/HR Doxycycline Hyclate 100 mg/ 100 mls @ 100 mls/hr 10/11/17 22:00 10/11/17 22: 26 Sodium Chloride IVPB 100 mls/hr Q12 JONNY Administration Protocol Insulin Human Regular 100 100 mls @ 4 mls/hr 10/12/17 07:55 units/ Sodium Chloride IV .Q24H PRN TITRATE PER MD ORDER Protocol 4 UNITS/HR Meropenem 500 mg/ Sodium 50 mls @ 100 mls/hr 10/12/17 10:00 Chloride IVPB DAILY JONNY Protocol Insulin Human Regular 0 units 10/11/17 22:00 10/12/17 05:22 Humulin R Med SC 4 units ACHS JONNY Administration Protocol - Patient Studies Lab Studies: Microbiology Studies 10/11/17 06:00 MRSA Culture (Admit) - Final Naris MRSA DETECTED 10/11/17 05:00 Blood Culture - Preliminary Blood NO GROWTH AFTER 24 HOURS 10/11/17 04:45 Blood Culture - Preliminary Blood NO GROWTH AFTER 24 HOURS Lab Studies 10/12/17 10/12/17 10/12/17 Range/Units 07:45 06:20 06:20 WBC (4.5-11.0) 10^3/ul RBC (3.5-6.1) 10^6/uL Hgb (12.0-16.0) g/dL Hct (36.0-48.0) % MCV (80.0-105.0) fl MCH (25.0-35.0) pg MCHC (31.0-37.0) g/dl RDW (11.5-14.5) % Plt Count (120.0-450.0) 10^3/uL MPV (7.0-11.0) fl Gran % (50.0-68.0) % Lymph % (Auto) (22.0-35.0) % [place] % (Auto) (1.0-6.0) % Eos % (Auto) (1.5-5.0) % Baso % (Auto) (0.0-3.0) % Gran # (1.4-6.5) Lymph # (Auto) (1.2-3.4) [place] # (Auto) (0.1-0.6) Eos # (Auto) (0.0-0.7) Baso # (Auto) (0.0-2.0) K/mm3 PT 31.8 H (9.4-12.5) SECONDS INR 2.71 H (0.93-1.08) APTT 33.6 (25.1-36.5) Seconds pCO2 (35-45) mm/Hg pO2 55 (80-100) mm/Hg HCO3 (21-28) mmol/L ABG pH (7.35-7.45) ABG Total CO2 (22-28) mmol.L ABG O2 Saturation (95-98) % ABG O2 Content (15-23) ML/dl ABG Base Excess (-2.0-3.0) mmol/L ABG Hemoglobin (11.7-17.4) g/dL ABG Carboxyhemoglobin (0.5-1.5) % POC ABG HHb (Measured) (0-5) % ABG Methemoglobin (0.0-3.0) % ABG O2 Capacity (16-24) mL/dl ABG Potassium (3.6-5.2) mmol/L VBG pH 7.33 (7.32-7.43) VBG pCO2 37.0 L (40-60) VBG HCO3 19.5 L (21-28) mmol/l VBG Total CO2 20.6 L (22-28) mmol.L VBG O2 Sat (Calc) 92.8 H (40-65) % VBG Base Excess -5.8 L (0.0-2.0) mmol/L VBG Potassium 5.2 (3.6-5.2) mmol/L Hgb O2 Saturation (95.0-98.0) % Glucose 564 H* (65-105) mg/dl Lactate 12.2 H* (0.7-2.1) mmol/L Mechanical Rate FiO2 21.0 % Tidal Volume PEEP Sodium 157.0 H (132-148) mmol/L Potassium (3.6-5.0) mmol/L Chloride 120.0 H (98-107) mmol/L Carbon Dioxide (21-33) mmol/L Anion Gap (10-20) BUN (7-21) mg/dL Creatinine (0.7-1.2) mg/dl Est GFR ( Amer) Est GFR (Non-Af Amer) POC Glucose (mg/dL) 446 H* (65-110) mg/dL Random Glucose (70-110) mg/dL Hemoglobin A1c (4.2-6.5) % Calcium (8.4-10.5) mg/dL Phosphorus (2.5-4.5) mg/dL Magnesium (1.7-2.2) mg/dL Total Bilirubin (0.2-1.3) mg/dL AST (14-36) U/L ALT (7-56) U/L Alkaline Phosphatase (38-126) U/L C-Reactive Protein (0.0-9.9) mg/L Total Protein (5.8-8.3) g/dL Albumin (3.0-4.8) g/dL Globulin gm/dL Albumin/Globulin Ratio (1.1-1.8) Triglycerides (35-160) mg/dL Cholesterol (130-200) mg/dL LDL Cholesterol Direct (0-129) mg/dL HDL Cholesterol (29-60) mg/dL Arterial Blood Potassium (3.6-5.2) mmol/L Venous Blood Potassium 5.2 (3.6-5.2) mmol/L Hepatitis A IgM Ab (NEGATIVE) Hep Bs Antigen (NEGATIVE) Hep B Core IgM Ab (NEGATIVE) Hepatitis C Antibody (NEGATIVE) 10/12/17 10/12/17 10/12/17 Range/Units 06:20 06:20 05:05 WBC 15.9 H D (4.5-11.0) 10^3/ul RBC 3.32 L (3.5-6.1) 10^6/uL Hgb 9.2 L (12.0-16.0) g/dL Hct 31.9 L (36.0-48.0) % MCV 96.1 D (80.0-105.0) fl MCH 27.7 (25.0-35.0) pg MCHC 28.8 L (31.0-37.0) g/dl RDW 14.7 H (11.5-14.5) % Plt Count 30 L* (120.0-450.0) 10^3/uL MPV (7.0-11.0) fl Gran % 85.7 H (50.0-68.0) % Lymph % (Auto) 13.0 L (22.0-35.0) % [place] % (Auto) 1.2 (1.0-6.0) % Eos % (Auto) 0.0 L (1.5-5.0) % Baso % (Auto) 0.1 (0.0-3.0) % Gran # 13.60 H (1.4-6.5) Lymph # (Auto) 2.1 (1.2-3.4) [place] # (Auto) 0.2 (0.1-0.6) Eos # (Auto) 0.0 (0.0-0.7) Baso # (Auto) 0.02 (0.0-2.0) K/mm3 PT (9.4-12.5) SECONDS INR (0.93-1.08) APTT (25.1-36.5) Seconds pCO2 (35-45) mm/Hg pO2 (80-100) mm/Hg HCO3 (21-28) mmol/L ABG pH (7.35-7.45) ABG Total CO2 (22-28) mmol.L ABG O2 Saturation (95-98) % ABG O2 Content (15-23) ML/dl ABG Base Excess (-2.0-3.0) mmol/L ABG Hemoglobin (11.7-17.4) g/dL ABG Carboxyhemoglobin (0.5-1.5) % POC ABG HHb (Measured) (0-5) % ABG Methemoglobin (0.0-3.0) % ABG O2 Capacity (16-24) mL/dl ABG Potassium (3.6-5.2) mmol/L VBG pH (7.32-7.43) VBG pCO2 (40-60) VBG HCO3 (21-28) mmol/l VBG Total CO2 (22-28) mmol.L VBG O2 Sat (Calc) (40-65) % VBG Base Excess (0.0-2.0) mmol/L VBG Potassium (3.6-5.2) mmol/L Hgb O2 Saturation (95.0-98.0) % Glucose (65-105) mg/dl Lactate (0.7-2.1) mmol/L Mechanical Rate FiO2 % Tidal Volume PEEP Sodium 161 H* (132-148) mmol/L Potassium 5.1 H (3.6-5.0) mmol/L Chloride 119 H (98-107) mmol/L Carbon Dioxide 21 (21-33) mmol/L Anion Gap 26 H (10-20) BUN 77 H (7-21) mg/dL Creatinine 3.3 H (0.7-1.2) mg/dl Est GFR ( Amer) 16 Est GFR (Non-Af Amer) 14 POC Glucose (mg/dL) 491 H* (65-110) mg/dL Random Glucose 524 H* (70-110) mg/dL Hemoglobin A1c (4.2-6.5) % Calcium 7.2 L (8.4-10.5) mg/dL Phosphorus (2.5-4.5) mg/dL Magnesium (1.7-2.2) mg/dL Total Bilirubin 0.9 (0.2-1.3) mg/dL AST 2286 H (14-36) U/L ALT 744 H (7-56) U/L Alkaline Phosphatase 90 (38-126) U/L C-Reactive Protein (0.0-9.9) mg/L Total Protein 4.5 L (5.8-8.3) g/dL Albumin 2.1 L (3.0-4.8) g/dL Globulin 2.5 gm/dL Albumin/Globulin Ratio 0.8 L (1.1-1.8) Triglycerides 93 (35-160) mg/dL Cholesterol < 50 L (130-200) mg/dL LDL Cholesterol Direct < 30 (0-129) mg/dL HDL Cholesterol 12 L (29-60) mg/dL Arterial Blood Potassium (3.6-5.2) mmol/L Venous Blood Potassium (3.6-5.2) mmol/L Hepatitis A IgM Ab (NEGATIVE) Hep Bs Antigen (NEGATIVE) Hep B Core IgM Ab (NEGATIVE) Hepatitis C Antibody (NEGATIVE) 10/12/17 10/12/17 10/11/17 Range/Units 01:20 00:30 22:09 WBC (4.5-11.0) 10^3/ul RBC (3.5-6.1) 10^6/uL Hgb (12.0-16.0) g/dL Hct (36.0-48.0) % MCV (80.0-105.0) fl MCH (25.0-35.0) pg MCHC (31.0-37.0) g/dl RDW (11.5-14.5) % Plt Count (120.0-450.0) 10^3/uL MPV (7.0-11.0) fl Gran % (50.0-68.0) % Lymph % (Auto) (22.0-35.0) % [place] % (Auto) (1.0-6.0) % Eos % (Auto) (1.5-5.0) % Baso % (Auto) (0.0-3.0) % Gran # (1.4-6.5) Lymph # (Auto) (1.2-3.4) [place] # (Auto) (0.1-0.6) Eos # (Auto) (0.0-0.7) Baso # (Auto) (0.0-2.0) K/mm3 PT (9.4-12.5) SECONDS INR (0.93-1.08) APTT (25.1-36.5) Seconds pCO2 (35-45) mm/Hg pO2 36 (80-100) mm/Hg HCO3 (21-28) mmol/L ABG pH (7.35-7.45) ABG Total CO2 (22-28) mmol.L ABG O2 Saturation (95-98) % ABG O2 Content (15-23) ML/dl ABG Base Excess (-2.0-3.0) mmol/L ABG Hemoglobin (11.7-17.4) g/dL ABG Carboxyhemoglobin (0.5-1.5) % POC ABG HHb (Measured) (0-5) % ABG Methemoglobin (0.0-3.0) % ABG O2 Capacity (16-24) mL/dl ABG Potassium (3.6-5.2) mmol/L VBG pH 7.32 (7.32-7.43) VBG pCO2 32.0 L (40-60) VBG HCO3 16.5 L (21-28) mmol/l VBG Total CO2 17.5 L (22-28) mmol.L VBG O2 Sat (Calc) 78.2 H (40-65) % VBG Base Excess -8.5 L (0.0-2.0) mmol/L VBG Potassium 6.0 H (3.6-5.2) mmol/L Hgb O2 Saturation (95.0-98.0) % Glucose 589 H* (65-105) mg/dl Lactate 13.7 H* (0.7-2.1) mmol/L Mechanical Rate FiO2 21.0 % Tidal Volume PEEP Sodium 158.0 H (132-148) mmol/L Potassium (3.6-5.0) mmol/L Chloride 123.0 H (98-107) mmol/L Carbon Dioxide (21-33) mmol/L Anion Gap (10-20) BUN (7-21) mg/dL Creatinine (0.7-1.2) mg/dl Est GFR ( Amer) Est GFR (Non-Af Amer) POC Glucose (mg/dL) 391 H 415 H* (65-110) mg/dL Random Glucose (70-110) mg/dL Hemoglobin A1c (4.2-6.5) % Calcium (8.4-10.5) mg/dL Phosphorus (2.5-4.5) mg/dL Magnesium (1.7-2.2) mg/dL Total Bilirubin (0.2-1.3) mg/dL AST (14-36) U/L ALT (7-56) U/L Alkaline Phosphatase (38-126) U/L C-Reactive Protein (0.0-9.9) mg/L Total Protein (5.8-8.3) g/dL Albumin (3.0-4.8) g/dL Globulin gm/dL Albumin/Globulin Ratio (1.1-1.8) Triglycerides (35-160) mg/dL Cholesterol (130-200) mg/dL LDL Cholesterol Direct (0-129) mg/dL HDL Cholesterol (29-60) mg/dL Arterial Blood Potassium (3.6-5.2) mmol/L Venous Blood Potassium 6.0 H (3.6-5.2) mmol/L Hepatitis A IgM Ab (NEGATIVE) Hep Bs Antigen (NEGATIVE) Hep B Core IgM Ab (NEGATIVE) Hepatitis C Antibody (NEGATIVE) 10/11/17 10/11/17 10/11/17 Range/Units 20:30 20:30 16:27 WBC (4.5-11.0) 10^3/ul RBC (3.5-6.1) 10^6/uL Hgb (12.0-16.0) g/dL Hct (36.0-48.0) % MCV (80.0-105.0) fl MCH (25.0-35.0) pg MCHC (31.0-37.0) g/dl RDW (11.5-14.5) % Plt Count (120.0-450.0) 10^3/uL MPV (7.0-11.0) fl Gran % (50.0-68.0) % Lymph % (Auto) (22.0-35.0) % [place] % (Auto) (1.0-6.0) % Eos % (Auto) (1.5-5.0) % Baso % (Auto) (0.0-3.0) % Gran # (1.4-6.5) Lymph # (Auto) (1.2-3.4) [place] # (Auto) (0.1-0.6) Eos # (Auto) (0.0-0.7) Baso # (Auto) (0.0-2.0) K/mm3 PT (9.4-12.5) SECONDS INR (0.93-1.08) APTT (25.1-36.5) Seconds pCO2 (35-45) mm/Hg pO2 60 H (80-100) mm/Hg HCO3 (21-28) mmol/L ABG pH (7.35-7.45) ABG Total CO2 (22-28) mmol.L ABG O2 Saturation (95-98) % ABG O2 Content (15-23) ML/dl ABG Base Excess (-2.0-3.0) mmol/L ABG Hemoglobin (11.7-17.4) g/dL ABG Carboxyhemoglobin (0.5-1.5) % POC ABG HHb (Measured) (0-5) % ABG Methemoglobin (0.0-3.0) % ABG O2 Capacity (16-24) mL/dl ABG Potassium (3.6-5.2) mmol/L VBG pH 7.24 L (7.32-7.43) VBG pCO2 32.0 L (40-60) VBG HCO3 13.7 L (21-28) mmol/l VBG Total CO2 14.7 L (22-28) mmol.L VBG O2 Sat (Calc) 94.4 H (40-65) % VBG Base Excess -12.5 L (0.0-2.0) mmol/L VBG Potassium 5.8 H (3.6-5.2) mmol/L Hgb O2 Saturation (95.0-98.0) % Glucose 622 H* D (65-105) mg/dl Lactate 14.8 H* (0.7-2.1) mmol/L Mechanical Rate FiO2 21.0 % Tidal Volume PEEP Sodium 165 H* 156.0 H (132-148) mmol/L Potassium 5.7 H* (3.6-5.0) mmol/L Chloride 125 H 128.0 H (98-107) mmol/L Carbon Dioxide 15 L (21-33) mmol/L Anion Gap 31 H (10-20) BUN 71 H (7-21) mg/dL Creatinine 3.1 H (0.7-1.2) mg/dl Est GFR ( Amer) 18 Est GFR (Non-Af Amer) 15 POC Glucose (mg/dL) 454 H* (65-110) mg/dL Random Glucose 576 H* D (70-110) mg/dL Hemoglobin A1c (4.2-6.5) % Calcium 7.9 L (8.4-10.5) mg/dL Phosphorus (2.5-4.5) mg/dL Magnesium (1.7-2.2) mg/dL Total Bilirubin (0.2-1.3) mg/dL AST (14-36) U/L ALT (7-56) U/L Alkaline Phosphatase (38-126) U/L C-Reactive Protein (0.0-9.9) mg/L Total Protein (5.8-8.3) g/dL Albumin (3.0-4.8) g/dL Globulin gm/dL Albumin/Globulin Ratio (1.1-1.8) Triglycerides (35-160) mg/dL Cholesterol (130-200) mg/dL LDL Cholesterol Direct (0-129) mg/dL HDL Cholesterol (29-60) mg/dL Arterial Blood Potassium (3.6-5.2) mmol/L Venous Blood Potassium 5.8 H (3.6-5.2) mmol/L Hepatitis A IgM Ab (NEGATIVE) Hep Bs Antigen (NEGATIVE) Hep B Core IgM Ab (NEGATIVE) Hepatitis C Antibody (NEGATIVE) 10/11/17 10/11/17 10/11/17 Range/Units 14:51 13:55 13:30 WBC 8.6 (4.5-11.0) 10^3/ul RBC 3.49 L (3.5-6.1) 10^6/uL Hgb 9.7 L (12.0-16.0) g/dL Hct 35.6 L (36.0-48.0) % MCV 102.0 (80.0-105.0) fl MCH 27.8 (25.0-35.0) pg MCHC 27.2 L (31.0-37.0) g/dl RDW 15.0 H (11.5-14.5) % Plt Count 105 L (120.0-450.0) 10^3/uL MPV 12.8 H (7.0-11.0) fl Gran % (50.0-68.0) % Lymph % (Auto) (22.0-35.0) % [place] % (Auto) (1.0-6.0) % Eos % (Auto) (1.5-5.0) % Baso % (Auto) (0.0-3.0) % Gran # (1.4-6.5) Lymph # (Auto) (1.2-3.4) [place] # (Auto) (0.1-0.6) Eos # (Auto) (0.0-0.7) Baso # (Auto) (0.0-2.0) K/mm3 PT (9.4-12.5) SECONDS INR (0.93-1.08) APTT (25.1-36.5) Seconds pCO2 33 L (35-45) mm/Hg pO2 84.0 (80-100) mm/Hg HCO3 10.5 L (21-28) mmol/L ABG pH 7.11 L* (7.35-7.45) ABG Total CO2 11.5 L (22-28) mmol.L ABG O2 Saturation 97.0 (95-98) % ABG O2 Content (15-23) ML/dl ABG Base Excess -18.0 L (-2.0-3.0) mmol/L ABG Hemoglobin (11.7-17.4) g/dL ABG Carboxyhemoglobin (0.5-1.5) % POC ABG HHb (Measured) (0-5) % ABG Methemoglobin (0.0-3.0) % ABG O2 Capacity (16-24) mL/dl ABG Potassium 6.4 H* (3.6-5.2) mmol/L VBG pH (7.32-7.43) VBG pCO2 (40-60) VBG HCO3 (21-28) mmol/l VBG Total CO2 (22-28) mmol.L VBG O2 Sat (Calc) (40-65) % VBG Base Excess (0.0-2.0) mmol/L VBG Potassium (3.6-5.2) mmol/L Hgb O2 Saturation (95.0-98.0) % Glucose 277 H (65-105) mg/dl Lactate 13.2 H* (0.7-2.1) mmol/L Mechanical Rate 24 FiO2 100.0 % Tidal Volume 350 PEEP 5 Sodium 162.0 H* (132-148) mmol/L Potassium (3.6-5.0) mmol/L Chloride 135.0 H (98-107) mmol/L Carbon Dioxide (21-33) mmol/L Anion Gap (10-20) BUN (7-21) mg/dL Creatinine (0.7-1.2) mg/dl Est GFR ( Amer) Est GFR (Non-Af Amer) POC Glucose (mg/dL) 193 H (65-110) mg/dL Random Glucose (70-110) mg/dL Hemoglobin A1c (4.2-6.5) % Calcium (8.4-10.5) mg/dL Phosphorus (2.5-4.5) mg/dL Magnesium (1.7-2.2) mg/dL Total Bilirubin (0.2-1.3) mg/dL AST (14-36) U/L ALT (7-56) U/L Alkaline Phosphatase (38-126) U/L C-Reactive Protein (0.0-9.9) mg/L Total Protein (5.8-8.3) g/dL Albumin (3.0-4.8) g/dL Globulin gm/dL Albumin/Globulin Ratio (1.1-1.8) Triglycerides (35-160) mg/dL Cholesterol (130-200) mg/dL LDL Cholesterol Direct (0-129) mg/dL HDL Cholesterol (29-60) mg/dL Arterial Blood Potassium 6.4 H* (3.6-5.2) mmol/L Venous Blood Potassium (3.6-5.2) mmol/L Hepatitis A IgM Ab (NEGATIVE) Hep Bs Antigen (NEGATIVE) Hep B Core IgM Ab (NEGATIVE) Hepatitis C Antibody (NEGATIVE) 10/11/17 10/11/17 10/11/17 Range/Units 13:30 13:30 11:50 WBC (4.5-11.0) 10^3/ul RBC (3.5-6.1) 10^6/uL Hgb (12.0-16.0) g/dL Hct (36.0-48.0) % MCV (80.0-105.0) fl MCH (25.0-35.0) pg MCHC (31.0-37.0) g/dl RDW (11.5-14.5) % Plt Count (120.0-450.0) 10^3/uL MPV (7.0-11.0) fl Gran % (50.0-68.0) % Lymph % (Auto) (22.0-35.0) % [place] % (Auto) (1.0-6.0) % Eos % (Auto) (1.5-5.0) % Baso % (Auto) (0.0-3.0) % Gran # (1.4-6.5) Lymph # (Auto) (1.2-3.4) [place] # (Auto) (0.1-0.6) Eos # (Auto) (0.0-0.7) Baso # (Auto) (0.0-2.0) K/mm3 PT (9.4-12.5) SECONDS INR (0.93-1.08) APTT 69.4 H (25.1-36.5) Seconds pCO2 (35-45) mm/Hg pO2 (80-100) mm/Hg HCO3 (21-28) mmol/L ABG pH (7.35-7.45) ABG Total CO2 (22-28) mmol.L ABG O2 Saturation (95-98) % ABG O2 Content (15-23) ML/dl ABG Base Excess (-2.0-3.0) mmol/L ABG Hemoglobin (11.7-17.4) g/dL ABG Carboxyhemoglobin (0.5-1.5) % POC ABG HHb (Measured) (0-5) % ABG Methemoglobin (0.0-3.0) % ABG O2 Capacity (16-24) mL/dl ABG Potassium (3.6-5.2) mmol/L VBG pH (7.32-7.43) VBG pCO2 (40-60) VBG HCO3 (21-28) mmol/l VBG Total CO2 (22-28) mmol.L VBG O2 Sat (Calc) (40-65) % VBG Base Excess (0.0-2.0) mmol/L VBG Potassium (3.6-5.2) mmol/L Hgb O2 Saturation (95.0-98.0) % Glucose (65-105) mg/dl Lactate (0.7-2.1) mmol/L Mechanical Rate FiO2 % Tidal Volume PEEP Sodium 169 H* (132-148) mmol/L Potassium 6.2 H* D (3.6-5.0) mmol/L Chloride 134 H (98-107) mmol/L Carbon Dioxide 13 L (21-33) mmol/L Anion Gap 28 H (10-20) BUN 68 H (7-21) mg/dL Creatinine 2.6 H (0.7-1.2) mg/dl Est GFR ( Amer) 22 Est GFR (Non-Af Amer) 18 POC Glucose (mg/dL) (65-110) mg/dL Random Glucose 264 H (70-110) mg/dL Hemoglobin A1c 11.7 H (4.2-6.5) % Calcium 8.0 L (8.4-10.5) mg/dL Phosphorus 6.6 H (2.5-4.5) mg/dL Magnesium 2.4 H (1.7-2.2) mg/dL Total Bilirubin 0.8 (0.2-1.3) mg/dL AST 1479 H (14-36) U/L ALT 549 H (7-56) U/L Alkaline Phosphatase 131 H D (38-126) U/L C-Reactive Protein (0.0-9.9) mg/L Total Protein 4.5 L (5.8-8.3) g/dL Albumin 2.0 L (3.0-4.8) g/dL Globulin 2.4 gm/dL Albumin/Globulin Ratio 0.8 L (1.1-1.8) Triglycerides (35-160) mg/dL Cholesterol (130-200) mg/dL LDL Cholesterol Direct (0-129) mg/dL HDL Cholesterol (29-60) mg/dL Arterial Blood Potassium (3.6-5.2) mmol/L Venous Blood Potassium (3.6-5.2) mmol/L Hepatitis A IgM Ab (NEGATIVE) Hep Bs Antigen (NEGATIVE) Hep B Core IgM Ab (NEGATIVE) Hepatitis C Antibody (NEGATIVE) 10/11/17 10/11/17 10/11/17 Range/Units 11:23 08:20 04:45 WBC (4.5-11.0) 10^3/ul RBC (3.5-6.1) 10^6/uL Hgb (12.0-16.0) g/dL Hct (36.0-48.0) % MCV (80.0-105.0) fl MCH (25.0-35.0) pg MCHC (31.0-37.0) g/dl RDW (11.5-14.5) % Plt Count (120.0-450.0) 10^3/uL MPV (7.0-11.0) fl Gran % (50.0-68.0) % Lymph % (Auto) (22.0-35.0) % [place] % (Auto) (1.0-6.0) % Eos % (Auto) (1.5-5.0) % Baso % (Auto) (0.0-3.0) % Gran # (1.4-6.5) Lymph # (Auto) (1.2-3.4) [place] # (Auto) (0.1-0.6) Eos # (Auto) (0.0-0.7) Baso # (Auto) (0.0-2.0) K/mm3 PT (9.4-12.5) SECONDS INR (0.93-1.08) APTT (25.1-36.5) Seconds pCO2 41 (35-45) mm/Hg pO2 86.0 (80-100) mm/Hg HCO3 10.8 L (21-28) mmol/L ABG pH 7.03 L* (7.35-7.45) ABG Total CO2 12.1 L (22-28) mmol.L ABG O2 Saturation 96.0 (95-98) % ABG O2 Content 12.8 L (15-23) ML/dl ABG Base Excess -19.0 L (-2.0-3.0) mmol/L ABG Hemoglobin 9.6 L (11.7-17.4) g/dL ABG Carboxyhemoglobin 1.4 (0.5-1.5) % POC ABG HHb (Measured) 3.9 (0-5) % ABG Methemoglobin 0.7 (0.0-3.0) % ABG O2 Capacity 13.3 L (16-24) mL/dl ABG Potassium (3.6-5.2) mmol/L VBG pH (7.32-7.43) VBG pCO2 (40-60) VBG HCO3 (21-28) mmol/l VBG Total CO2 (22-28) mmol.L VBG O2 Sat (Calc) (40-65) % VBG Base Excess (0.0-2.0) mmol/L VBG Potassium (3.6-5.2) mmol/L Hgb O2 Saturation 94.0 L (95.0-98.0) % Glucose (65-105) mg/dl Lactate (0.7-2.1) mmol/L Mechanical Rate FiO2 100.0 % Tidal Volume PEEP Sodium (132-148) mmol/L Potassium (3.6-5.0) mmol/L Chloride (98-107) mmol/L Carbon Dioxide (21-33) mmol/L Anion Gap (10-20) BUN (7-21) mg/dL Creatinine (0.7-1.2) mg/dl Est GFR ( Amer) Est GFR (Non-Af Amer) POC Glucose (mg/dL) 62 L (65-110) mg/dL Random Glucose (70-110) mg/dL Hemoglobin A1c (4.2-6.5) % Calcium (8.4-10.5) mg/dL Phosphorus (2.5-4.5) mg/dL Magnesium (1.7-2.2) mg/dL Total Bilirubin (0.2-1.3) mg/dL AST (14-36) U/L ALT (7-56) U/L Alkaline Phosphatase (38-126) U/L C-Reactive Protein 67.60 H (0.0-9.9) mg/L Total Protein (5.8-8.3) g/dL Albumin (3.0-4.8) g/dL Globulin gm/dL Albumin/Globulin Ratio (1.1-1.8) Triglycerides (35-160) mg/dL Cholesterol (130-200) mg/dL LDL Cholesterol Direct (0-129) mg/dL HDL Cholesterol (29-60) mg/dL Arterial Blood Potassium (3.6-5.2) mmol/L Venous Blood Potassium (3.6-5.2) mmol/L Hepatitis A IgM Ab (NEGATIVE) Hep Bs Antigen (NEGATIVE) Hep B Core IgM Ab (NEGATIVE) Hepatitis C Antibody (NEGATIVE) 10/11/17 Range/Units 04:45 WBC (4.5-11.0) 10^3/ul RBC (3.5-6.1) 10^6/uL Hgb (12.0-16.0) g/dL Hct (36.0-48.0) % MCV (80.0-105.0) fl MCH (25.0-35.0) pg MCHC (31.0-37.0) g/dl RDW (11.5-14.5) % Plt Count (120.0-450.0) 10^3/uL MPV (7.0-11.0) fl Gran % (50.0-68.0) % Lymph % (Auto) (22.0-35.0) % [place] % (Auto) (1.0-6.0) % Eos % (Auto) (1.5-5.0) % Baso % (Auto) (0.0-3.0) % Gran # (1.4-6.5) Lymph # (Auto) (1.2-3.4) [place] # (Auto) (0.1-0.6) Eos # (Auto) (0.0-0.7) Baso # (Auto) (0.0-2.0) K/mm3 PT (9.4-12.5) SECONDS INR (0.93-1.08) APTT (25.1-36.5) Seconds pCO2 (35-45) mm/Hg pO2 (80-100) mm/Hg HCO3 (21-28) mmol/L ABG pH (7.35-7.45) ABG Total CO2 (22-28) mmol.L ABG O2 Saturation (95-98) % ABG O2 Content (15-23) ML/dl ABG Base Excess (-2.0-3.0) mmol/L ABG Hemoglobin (11.7-17.4) g/dL ABG Carboxyhemoglobin (0.5-1.5) % POC ABG HHb (Measured) (0-5) % ABG Methemoglobin (0.0-3.0) % ABG O2 Capacity (16-24) mL/dl ABG Potassium (3.6-5.2) mmol/L VBG pH (7.32-7.43) VBG pCO2 (40-60) VBG HCO3 (21-28) mmol/l VBG Total CO2 (22-28) mmol.L VBG O2 Sat (Calc) (40-65) % VBG Base Excess (0.0-2.0) mmol/L VBG Potassium (3.6-5.2) mmol/L Hgb O2 Saturation (95.0-98.0) % Glucose (65-105) mg/dl Lactate (0.7-2.1) mmol/L Mechanical Rate FiO2 % Tidal Volume PEEP Sodium (132-148) mmol/L Potassium (3.6-5.0) mmol/L Chloride (98-107) mmol/L Carbon Dioxide (21-33) mmol/L Anion Gap (10-20) BUN (7-21) mg/dL Creatinine (0.7-1.2) mg/dl Est GFR ( Amer) Est GFR (Non-Af Amer) POC Glucose (mg/dL) (65-110) mg/dL Random Glucose (70-110) mg/dL Hemoglobin A1c (4.2-6.5) % Calcium (8.4-10.5) mg/dL Phosphorus (2.5-4.5) mg/dL Magnesium (1.7-2.2) mg/dL Total Bilirubin (0.2-1.3) mg/dL AST (14-36) U/L ALT (7-56) U/L Alkaline Phosphatase (38-126) U/L C-Reactive Protein (0.0-9.9) mg/L Total Protein (5.8-8.3) g/dL Albumin (3.0-4.8) g/dL Globulin gm/dL Albumin/Globulin Ratio (1.1-1.8) Triglycerides (35-160) mg/dL Cholesterol (130-200) mg/dL LDL Cholesterol Direct (0-129) mg/dL HDL Cholesterol (29-60) mg/dL Arterial Blood Potassium (3.6-5.2) mmol/L Venous Blood Potassium (3.6-5.2) mmol/L Hepatitis A IgM Ab Negative (NEGATIVE) Hep Bs Antigen Negative (NEGATIVE) Hep B Core IgM Ab Negative (NEGATIVE) Hepatitis C Antibody Reactive (NEGATIVE) Laboratory Results - last 24 hr 10/11/17 10/11/17 10/11/17 04:45 04:45 08:20 WBC RBC Hgb Hct MCV MCH MCHC RDW Plt Count MPV Gran % Lymph % (Auto) [place] % (Auto) Eos % (Auto) Baso % (Auto) Gran # Lymph # (Auto) [place] # (Auto) Eos # (Auto) Baso # (Auto) PT INR APTT pCO2 41 pO2 86.0 HCO3 10.8 L ABG pH 7.03 L* ABG Total CO2 12.1 L ABG O2 Saturation 96.0 ABG O2 Content 12.8 L ABG Base Excess -19.0 L ABG Hemoglobin 9.6 L ABG Carboxyhemoglobin 1.4 POC ABG HHb (Measured) 3.9 ABG Methemoglobin 0.7 ABG O2 Capacity 13.3 L ABG Potassium VBG pH VBG pCO2 VBG HCO3 VBG Total CO2 VBG O2 Sat (Calc) VBG Base Excess VBG Potassium Hgb O2 Saturation 94.0 L Glucose Lactate Mechanical Rate FiO2 100.0 Tidal Volume PEEP Sodium Potassium Chloride Carbon Dioxide Anion Gap BUN Creatinine Est GFR ( Amer) Est GFR (Non-Af Amer) POC Glucose (mg/dL) Random Glucose Hemoglobin A1c Calcium Phosphorus Magnesium Total Bilirubin AST ALT Alkaline Phosphatase C-Reactive Protein 67.60 H Total Protein Albumin Globulin Albumin/Globulin Ratio Triglycerides Cholesterol LDL Cholesterol Direct HDL Cholesterol Arterial Blood Potassium Venous Blood Potassium Hepatitis A IgM Ab Negative Hep Bs Antigen Negative Hep B Core IgM Ab Negative Hepatitis C Antibody Reactive 10/11/17 10/11/17 10/11/17 11:23 11:50 13:30 WBC RBC Hgb Hct MCV MCH MCHC RDW Plt Count MPV Gran % Lymph % (Auto) [place] % (Auto) Eos % (Auto) Baso % (Auto) Gran # Lymph # (Auto) [place] # (Auto) Eos # (Auto) Baso # (Auto) PT INR APTT 69.4 H pCO2 pO2 HCO3 ABG pH ABG Total CO2 ABG O2 Saturation ABG O2 Content ABG Base Excess ABG Hemoglobin ABG Carboxyhemoglobin POC ABG HHb (Measured) ABG Methemoglobin ABG O2 Capacity ABG Potassium VBG pH VBG pCO2 VBG HCO3 VBG Total CO2 VBG O2 Sat (Calc) VBG Base Excess VBG Potassium Hgb O2 Saturation Glucose Lactate Mechanical Rate FiO2 Tidal Volume PEEP Sodium Potassium Chloride Carbon Dioxide Anion Gap BUN Creatinine Est GFR ( Amer) Est GFR (Non-Af Amer) POC Glucose (mg/dL) 62 L Random Glucose Hemoglobin A1c 11.7 H Calcium Phosphorus Magnesium Total Bilirubin AST ALT Alkaline Phosphatase C-Reactive Protein Total Protein Albumin Globulin Albumin/Globulin Ratio Triglycerides Cholesterol LDL Cholesterol Direct HDL Cholesterol Arterial Blood Potassium Venous Blood Potassium Hepatitis A IgM Ab Hep Bs Antigen Hep B Core IgM Ab Hepatitis C Antibody 10/11/17 10/11/17 10/11/17 13:30 13:30 13:55 WBC 8.6 RBC 3.49 L Hgb 9.7 L Hct 35.6 L MCV 102.0 MCH 27.8 MCHC 27.2 L RDW 15.0 H Plt Count 105 L MPV 12.8 H Gran % Lymph % (Auto) [place] % (Auto) Eos % (Auto) Baso % (Auto) Gran # Lymph # (Auto) [place] # (Auto) Eos # (Auto) Baso # (Auto) PT INR APTT pCO2 33 L pO2 84.0 HCO3 10.5 L ABG pH 7.11 L* ABG Total CO2 11.5 L ABG O2 Saturation 97.0 ABG O2 Content ABG Base Excess -18.0 L ABG Hemoglobin ABG Carboxyhemoglobin POC ABG HHb (Measured) ABG Methemoglobin ABG O2 Capacity ABG Potassium 6.4 H* VBG pH VBG pCO2 VBG HCO3 VBG Total CO2 VBG O2 Sat (Calc) VBG Base Excess VBG Potassium Hgb O2 Saturation Glucose 277 H Lactate 13.2 H* Mechanical Rate 24 FiO2 100.0 Tidal Volume 350 PEEP 5 Sodium 169 H* 162.0 H* Potassium 6.2 H* D Chloride 134 H 135.0 H Carbon Dioxide 13 L Anion Gap 28 H BUN 68 H Creatinine 2.6 H Est GFR ( Amer) 22 Est GFR (Non-Af Amer) 18 POC Glucose (mg/dL) Random Glucose 264 H Hemoglobin A1c Calcium 8.0 L Phosphorus 6.6 H Magnesium 2.4 H Total Bilirubin 0.8 AST 1479 H ALT 549 H Alkaline Phosphatase 131 H D C-Reactive Protein Total Protein 4.5 L Albumin 2.0 L Globulin 2.4 Albumin/Globulin Ratio 0.8 L Triglycerides Cholesterol LDL Cholesterol Direct HDL Cholesterol Arterial Blood Potassium 6.4 H* Venous Blood Potassium Hepatitis A IgM Ab Hep Bs Antigen Hep B Core IgM Ab Hepatitis C Antibody 10/11/17 10/11/17 10/11/17 14:51 16:27 20:30 WBC RBC Hgb Hct MCV MCH MCHC RDW Plt Count MPV Gran % Lymph % (Auto) [place] % (Auto) Eos % (Auto) Baso % (Auto) Gran # Lymph # (Auto) [place] # (Auto) Eos # (Auto) Baso # (Auto) PT INR APTT pCO2 pO2 60 H HCO3 ABG pH ABG Total CO2 ABG O2 Saturation ABG O2 Content ABG Base Excess ABG Hemoglobin ABG Carboxyhemoglobin POC ABG HHb (Measured) ABG Methemoglobin ABG O2 Capacity ABG Potassium VBG pH 7.24 L VBG pCO2 32.0 L VBG HCO3 13.7 L VBG Total CO2 14.7 L VBG O2 Sat (Calc) 94.4 H VBG Base Excess -12.5 L VBG Potassium 5.8 H Hgb O2 Saturation Glucose 622 H* D Lactate 14.8 H* Mechanical Rate FiO2 21.0 Tidal Volume PEEP Sodium 156.0 H Potassium Chloride 128.0 H Carbon Dioxide Anion Gap BUN Creatinine Est GFR ( Amer) Est GFR (Non-Af Amer) POC Glucose (mg/dL) 193 H 454 H* Random Glucose Hemoglobin A1c Calcium Phosphorus Magnesium Total Bilirubin AST ALT Alkaline Phosphatase C-Reactive Protein Total Protein Albumin Globulin Albumin/Globulin Ratio Triglycerides Cholesterol LDL Cholesterol Direct HDL Cholesterol Arterial Blood Potassium Venous Blood Potassium 5.8 H Hepatitis A IgM Ab Hep Bs Antigen Hep B Core IgM Ab Hepatitis C Antibody 10/11/17 10/11/17 10/12/17 20:30 22:09 00:30 WBC RBC Hgb Hct MCV MCH MCHC RDW Plt Count MPV Gran % Lymph % (Auto) [place] % (Auto) Eos % (Auto) Baso % (Auto) Gran # Lymph # (Auto) [place] # (Auto) Eos # (Auto) Baso # (Auto) PT INR APTT pCO2 pO2 36 HCO3 ABG pH ABG Total CO2 ABG O2 Saturation ABG O2 Content ABG Base Excess ABG Hemoglobin ABG Carboxyhemoglobin POC ABG HHb (Measured) ABG Methemoglobin ABG O2 Capacity ABG Potassium VBG pH 7.32 VBG pCO2 32.0 L VBG HCO3 16.5 L VBG Total CO2 17.5 L VBG O2 Sat (Calc) 78.2 H VBG Base Excess -8.5 L VBG Potassium 6.0 H Hgb O2 Saturation Glucose 589 H* Lactate 13.7 H* Mechanical Rate FiO2 21.0 Tidal Volume PEEP Sodium 165 H* 158.0 H Potassium 5.7 H* Chloride 125 H 123.0 H Carbon Dioxide 15 L Anion Gap 31 H BUN 71 H Creatinine 3.1 H Est GFR ( Amer) 18 Est GFR (Non-Af Amer) 15 POC Glucose (mg/dL) 415 H* Random Glucose 576 H* D Hemoglobin A1c Calcium 7.9 L Phosphorus Magnesium Total Bilirubin AST ALT Alkaline Phosphatase C-Reactive Protein Total Protein Albumin Globulin Albumin/Globulin Ratio Triglycerides Cholesterol LDL Cholesterol Direct HDL Cholesterol Arterial Blood Potassium Venous Blood Potassium 6.0 H Hepatitis A IgM Ab Hep Bs Antigen Hep B Core IgM Ab Hepatitis C Antibody 10/12/17 10/12/17 10/12/17 01:20 05:05 06:20 WBC 15.9 H D RBC 3.32 L Hgb 9.2 L Hct 31.9 L MCV 96.1 D MCH 27.7 MCHC 28.8 L RDW 14.7 H Plt Count 30 L* MPV Gran % 85.7 H Lymph % (Auto) 13.0 L [place] % (Auto) 1.2 Eos % (Auto) 0.0 L Baso % (Auto) 0.1 Gran # 13.60 H Lymph # (Auto) 2.1 [place] # (Auto) 0.2 Eos # (Auto) 0.0 Baso # (Auto) 0.02 PT INR APTT pCO2 pO2 HCO3 ABG pH ABG Total CO2 ABG O2 Saturation ABG O2 Content ABG Base Excess ABG Hemoglobin ABG Carboxyhemoglobin POC ABG HHb (Measured) ABG Methemoglobin ABG O2 Capacity ABG Potassium VBG pH VBG pCO2 VBG HCO3 VBG Total CO2 VBG O2 Sat (Calc) VBG Base Excess VBG Potassium Hgb O2 Saturation Glucose Lactate Mechanical Rate FiO2 Tidal Volume PEEP Sodium Potassium Chloride Carbon Dioxide Anion Gap BUN Creatinine Est GFR ( Amer) Est GFR (Non-Af Amer) POC Glucose (mg/dL) 391 H 491 H* Random Glucose Hemoglobin A1c Calcium Phosphorus Magnesium Total Bilirubin AST ALT Alkaline Phosphatase C-Reactive Protein Total Protein Albumin Globulin Albumin/Globulin Ratio Triglycerides Cholesterol LDL Cholesterol Direct HDL Cholesterol Arterial Blood Potassium Venous Blood Potassium Hepatitis A IgM Ab Hep Bs Antigen Hep B Core IgM Ab Hepatitis C Antibody 10/12/17 10/12/17 10/12/17 06:20 06:20 06:20 WBC RBC Hgb Hct MCV MCH MCHC RDW Plt Count MPV Gran % Lymph % (Auto) [place] % (Auto) Eos % (Auto) Baso % (Auto) Gran # Lymph # (Auto) [place] # (Auto) Eos # (Auto) Baso # (Auto) PT 31.8 H INR 2.71 H APTT 33.6 pCO2 pO2 55 HCO3 ABG pH ABG Total CO2 ABG O2 Saturation ABG O2 Content ABG Base Excess ABG Hemoglobin ABG Carboxyhemoglobin POC ABG HHb (Measured) ABG Methemoglobin ABG O2 Capacity ABG Potassium VBG pH 7.33 VBG pCO2 37.0 L VBG HCO3 19.5 L VBG Total CO2 20.6 L VBG O2 Sat (Calc) 92.8 H VBG Base Excess -5.8 L VBG Potassium 5.2 Hgb O2 Saturation Glucose 564 H* Lactate 12.2 H* Mechanical Rate FiO2 21.0 Tidal Volume PEEP Sodium 161 H* 157.0 H Potassium 5.1 H Chloride 119 H 120.0 H Carbon Dioxide 21 Anion Gap 26 H BUN 77 H Creatinine 3.3 H Est GFR ( Amer) 16 Est GFR (Non-Af Amer) 14 POC Glucose (mg/dL) Random Glucose 524 H* Hemoglobin A1c Calcium 7.2 L Phosphorus Magnesium Total Bilirubin 0.9 AST 2286 H ALT 744 H Alkaline Phosphatase 90 C-Reactive Protein Total Protein 4.5 L Albumin 2.1 L Globulin 2.5 Albumin/Globulin Ratio 0.8 L Triglycerides 93 Cholesterol < 50 L LDL Cholesterol Direct < 30 HDL Cholesterol 12 L Arterial Blood Potassium Venous Blood Potassium 5.2 Hepatitis A IgM Ab Hep Bs Antigen Hep B Core IgM Ab Hepatitis C Antibody 10/12/17 07:45 WBC RBC Hgb Hct MCV MCH MCHC RDW Plt Count MPV Gran % Lymph % (Auto) [place] % (Auto) Eos % (Auto) Baso % (Auto) Gran # Lymph # (Auto) [place] # (Auto) Eos # (Auto) Baso # (Auto) PT INR APTT pCO2 pO2 HCO3 ABG pH ABG Total CO2 ABG O2 Saturation ABG O2 Content ABG Base Excess ABG Hemoglobin ABG Carboxyhemoglobin POC ABG HHb (Measured) ABG Methemoglobin ABG O2 Capacity ABG Potassium VBG pH VBG pCO2 VBG HCO3 VBG Total CO2 VBG O2 Sat (Calc) VBG Base Excess VBG Potassium Hgb O2 Saturation Glucose Lactate Mechanical Rate FiO2 Tidal Volume PEEP Sodium Potassium Chloride Carbon Dioxide Anion Gap BUN Creatinine Est GFR ( Amer) Est GFR (Non-Af Amer) POC Glucose (mg/dL) 446 H* Random Glucose Hemoglobin A1c Calcium Phosphorus Magnesium Total Bilirubin AST ALT Alkaline Phosphatase C-Reactive Protein Total Protein Albumin Globulin Albumin/Globulin Ratio Triglycerides Cholesterol LDL Cholesterol Direct HDL Cholesterol Arterial Blood Potassium Venous Blood Potassium Hepatitis A IgM Ab Hep Bs Antigen Hep B Core IgM Ab Hepatitis C Antibody EKG/Cardiology Studies: Cardiology / EKG Studies 10/11/17 14:17 EKG [ELECTROCARDIOGRAM] Stat Comment: Reason For Exam: hyperkalemia Fingerstick Blood Sugar Results: 491 Review of Systems - Review of Systems Systems not reviewed;Unavailable: Intubated Assessment/Plan - Assessment and Plan (Free Text) Assessment: 77 F with past medical history of HTN, dementia, S/P right hip replacement presents from [facility] (in the [place] [facility] since [facility] due to the hip surgery) for AMS and lethargy s/p cardiac arrrest found to be in Hyperglycemic Hyperosmolar Nonketotic Coma (HONK), Hypernatremic, and septic shock secondary to HCAP. Neuro: -Sedated with fentanyl -Baseline severe dementia -Continue with Neuro checks -F/U with neuro recs CV: -Maintain MAP > 65 -Continue to hold HTN medications -Levophed discontinued , will come off vasopressin Pulm: -Maintain SPO2 > 90 % -Intubated, sedated with Fentanyl, PRVC settings 80 12 16 350 -Follow up with repeat ABG -Continue with duonebs GI: -OG tube in place; administer free water 300 q6 -CT abdomen reveals pneumonia in left lung base -Acute hep panel reveals reactivity for Hepatitis C -Protonix Drip discontinued due to thrombocytopenia Renal: -Monitor I&O -Monitor and replete electrolytes as needed -Sodium bicarb drip discontinued, continue with free water flushes -Hypernatremia; 1/2NS@100, free water flushes ID: -Procal 0.45 -ID consulted for recs -Monitor WBC and lactate -Continue with Merrem and doxycycline as per ID for HCAP -Follow up pancultures Endo: -HgA1C 11.7; insulin sliding scale-medium -Insulin drip started for hyperglycemia -Maintain euglycemia and normothermia -Consider endo consult Hematologic -H&H stable -Thrombocytopenia; protonix discontinued as well as heparin drip. Continue to monitor with repeat CBC <C[place] - Last Filed: 10/12/17 11:27> CCU Objective - Vital Signs / Intake & Output Intake and Output (Last 8hrs): Intake & Output 10/11/17 10/12/17 10/12/17 22:59 06:59 14:59 Intake Total 3876 2084 Output Total 325 150 Balance 3551 1934 Intake: IV 3276 2084 Left Femoral 2708 1834 Left Hand 218 Right Upper arm 100 Tube Feeding 600 Output: Gastric Amount 200 Stomach 200 Urine 125 150 Urethral (Alexandre) 125 150 Other: # Bowel Movements 2 - Medications Active Medications: Active Medications Generic Name Dose Route Start Last Admin Trade Name Freq PRN Reason Stop Dose Admin Albuterol/Ipratropium 3 ml 10/11/17 02:00 10/12/17 07:12 Duoneb 3 Mg/0.5 Mg (3 Ml) Ud IH 3 ml [id number] JONNY Administration Albuterol/Ipratropium 3 ml 10/10/17 23:20 Duoneb 3 Mg/0.5 Mg (3 Ml) Ud IH Q2H PRN Shortness of Breath Doxercalciferol 1 mcg 10/12/17 10:00 Hectorol IV DAILY JONNY Hydrocortisone Sodium Succinate 50 mg 10/11/17 12:00 10/12/17 05:15 Solu-Cortef IVP 50 mg Q6 JONNY Administration Vasopressin 20 units/ Dextrose 101 mls @ 9.09 mls/hr 10/11/17 07:30 10/12/17 05:01 IV 9.09 mls/hr .[id number] JONNY Administration Protocol 0.03 U/MIN Fentanyl Citrate 1,000 mcg in 100 mls @ 2 mls/hr 10/11/17 11:07 10/11/17 11: 58 Fentanyl Citrate/Sodium Chloride 1 Mg/100 Ml IV 20 mcg/hr .Q24H PRN 2 mls/hr TITRATE PER MD ORDER Administration Protocol 20 MCG/HR Doxycycline Hyclate 100 mg/ 100 mls @ 100 mls/hr 10/11/17 22:00 10/12/17 11: 11 Sodium Chloride IVPB 100 mls/hr Q12 JONNY Administration Protocol Insulin Human Regular 100 100 mls @ 4 mls/hr 10/12/17 07:55 10/12/17 08:19 units/ Sodium Chloride IV 4 units/hr .Q24H PRN 4 mls/hr TITRATE PER MD ORDER Administration Protocol 4 UNITS/HR Meropenem 500 mg/ Sodium 50 mls @ 100 mls/hr 10/12/17 10:00 10/12/17 09:35 Chloride IVPB 100 mls/hr DAILY JONNY Administration Protocol Sodium Chloride 1,000 mls @ 100 mls/hr 10/12/17 10:15 10/12/17 11:08 Sodium Chloride 0.45% IV 100 mls/hr .Q10H JONNY Administration Insulin Human Regular 0 units 10/11/17 22:00 10/12/17 05:22 Humulin R Med SC 4 units ACHS JONNY Administration Protocol - Patient Studies Lab Studies: Microbiology Studies 10/11/17 06:00 MRSA Culture (Admit) - Final Naris MRSA DETECTED 10/11/17 05:00 Blood Culture - Preliminary Blood NO GROWTH AFTER 24 HOURS 10/11/17 04:45 Blood Culture - Preliminary Blood NO GROWTH AFTER 24 HOURS Lab Studies 10/12/17 10/12/17 10/12/17 Range/Units 08:30 07:45 06:20 WBC (4.5-11.0) 10^3/ul RBC (3.5-6.1) 10^6/uL Hgb (12.0-16.0) g/dL Hct (36.0-48.0) % MCV (80.0-105.0) fl MCH (25.0-35.0) pg MCHC (31.0-37.0) g/dl RDW (11.5-14.5) % Plt Count (120.0-450.0) 10^3/uL MPV (7.0-11.0) fl Gran % (50.0-68.0) % Lymph % (Auto) (22.0-35.0) % [place] % (Auto) (1.0-6.0) % Eos % (Auto) (1.5-5.0) % Baso % (Auto) (0.0-3.0) % Gran # (1.4-6.5) Lymph # (Auto) (1.2-3.4) [place] # (Auto) (0.1-0.6) Eos # (Auto) (0.0-0.7) Baso # (Auto) (0.0-2.0) K/mm3 PT (9.4-12.5) SECONDS INR (0.93-1.08) APTT (25.1-36.5) Seconds pCO2 29 L (35-45) mm/Hg pO2 58.0 L 55 (80-100) mm/Hg HCO3 19.2 L (21-28) mmol/L ABG pH 7.43 (7.35-7.45) ABG Total CO2 20.1 L (22-28) mmol.L ABG O2 Saturation 95.2 (95-98) % ABG Base Excess -3.9 L (-2.0-3.0) mmol/L ABG Potassium 4.7 (3.6-5.2) mmol/L VBG pH 7.33 (7.32-7.43) VBG pCO2 37.0 L (40-60) VBG HCO3 19.5 L (21-28) mmol/l VBG Total CO2 20.6 L (22-28) mmol.L VBG O2 Sat (Calc) 92.8 H (40-65) % VBG Base Excess -5.8 L (0.0-2.0) mmol/L VBG Potassium 5.2 (3.6-5.2) mmol/L Glucose 510 H* 564 H* (65-105) mg/dl Lactate 11.2 H* 12.2 H* (0.7-2.1) mmol/L Mechanical Rate 16 FiO2 60.0 21.0 % Tidal Volume 350 PEEP 5 Sodium 153.0 H 157.0 H (132-148) mmol/L Potassium (3.6-5.0) mmol/L Chloride 124.0 H 120.0 H (98-107) mmol/L Carbon Dioxide (21-33) mmol/L Anion Gap (10-20) BUN (7-21) mg/dL Creatinine (0.7-1.2) mg/dl Est GFR ( Amer) Est GFR (Non-Af Amer) POC Glucose (mg/dL) 446 H* (65-110) mg/dL Random Glucose (70-110) mg/dL Hemoglobin A1c (4.2-6.5) % Calcium (8.4-10.5) mg/dL Phosphorus (2.5-4.5) mg/dL Magnesium (1.7-2.2) mg/dL Total Bilirubin (0.2-1.3) mg/dL AST (14-36) U/L ALT (7-56) U/L Alkaline Phosphatase (38-126) U/L C-Reactive Protein (0.0-9.9) mg/L Total Protein (5.8-8.3) g/dL Albumin (3.0-4.8) g/dL Globulin gm/dL Albumin/Globulin Ratio (1.1-1.8) Triglycerides (35-160) mg/dL Cholesterol (130-200) mg/dL LDL Cholesterol Direct (0-129) mg/dL HDL Cholesterol (29-60) mg/dL Arterial Blood Potassium 4.7 (3.6-5.2) mmol/L Venous Blood Potassium 5.2 (3.6-5.2) mmol/L Hepatitis A IgM Ab (NEGATIVE) Hep Bs Antigen (NEGATIVE) Hep B Core IgM Ab (NEGATIVE) Hepatitis C Antibody (NEGATIVE) 10/12/17 10/12/17 10/12/17 Range/Units 06:20 06:20 06:20 WBC 15.9 H D (4.5-11.0) 10^3/ul RBC 3.32 L (3.5-6.1) 10^6/uL Hgb 9.2 L (12.0-16.0) g/dL Hct 31.9 L (36.0-48.0) % MCV 96.1 D (80.0-105.0) fl MCH 27.7 (25.0-35.0) pg MCHC 28.8 L (31.0-37.0) g/dl RDW 14.7 H (11.5-14.5) % Plt Count 30 L* (120.0-450.0) 10^3/uL MPV (7.0-11.0) fl Gran % 85.7 H (50.0-68.0) % Lymph % (Auto) 13.0 L (22.0-35.0) % [place] % (Auto) 1.2 (1.0-6.0) % Eos % (Auto) 0.0 L (1.5-5.0) % Baso % (Auto) 0.1 (0.0-3.0) % Gran # 13.60 H (1.4-6.5) Lymph # (Auto) 2.1 (1.2-3.4) [place] # (Auto) 0.2 (0.1-0.6) Eos # (Auto) 0.0 (0.0-0.7) Baso # (Auto) 0.02 (0.0-2.0) K/mm3 PT 31.8 H (9.4-12.5) SECONDS INR 2.71 H (0.93-1.08) APTT 33.6 (25.1-36.5) Seconds pCO2 (35-45) mm/Hg pO2 (80-100) mm/Hg HCO3 (21-28) mmol/L ABG pH (7.35-7.45) ABG Total CO2 (22-28) mmol.L ABG O2 Saturation (95-98) % ABG Base Excess (-2.0-3.0) mmol/L ABG Potassium (3.6-5.2) mmol/L VBG pH (7.32-7.43) VBG pCO2 (40-60) VBG HCO3 (21-28) mmol/l VBG Total CO2 (22-28) mmol.L VBG O2 Sat (Calc) (40-65) % VBG Base Excess (0.0-2.0) mmol/L VBG Potassium (3.6-5.2) mmol/L Glucose (65-105) mg/dl Lactate (0.7-2.1) mmol/L Mechanical Rate FiO2 % Tidal Volume PEEP Sodium 161 H* (132-148) mmol/L Potassium 5.1 H (3.6-5.0) mmol/L Chloride 119 H (98-107) mmol/L Carbon Dioxide 21 (21-33) mmol/L Anion Gap 26 H (10-20) BUN 77 H (7-21) mg/dL Creatinine 3.3 H (0.7-1.2) mg/dl Est GFR ( Amer) 16 Est GFR (Non-Af Amer) 14 POC Glucose (mg/dL) (65-110) mg/dL Random Glucose 524 H* (70-110) mg/dL Hemoglobin A1c (4.2-6.5) % Calcium 7.2 L (8.4-10.5) mg/dL Phosphorus (2.5-4.5) mg/dL Magnesium (1.7-2.2) mg/dL Total Bilirubin 0.9 (0.2-1.3) mg/dL AST 2286 H (14-36) U/L ALT 744 H (7-56) U/L Alkaline Phosphatase 90 (38-126) U/L C-Reactive Protein (0.0-9.9) mg/L Total Protein 4.5 L (5.8-8.3) g/dL Albumin 2.1 L (3.0-4.8) g/dL Globulin 2.5 gm/dL Albumin/Globulin Ratio 0.8 L (1.1-1.8) Triglycerides 93 (35-160) mg/dL Cholesterol < 50 L (130-200) mg/dL LDL Cholesterol Direct < 30 (0-129) mg/dL HDL Cholesterol 12 L (29-60) mg/dL Arterial Blood Potassium (3.6-5.2) mmol/L Venous Blood Potassium (3.6-5.2) mmol/L Hepatitis A IgM Ab (NEGATIVE) Hep Bs Antigen (NEGATIVE) Hep B Core IgM Ab (NEGATIVE) Hepatitis C Antibody (NEGATIVE) 10/12/17 10/12/17 10/12/17 Range/Units 05:05 01:20 00:30 WBC (4.5-11.0) 10^3/ul RBC (3.5-6.1) 10^6/uL Hgb (12.0-16.0) g/dL Hct (36.0-48.0) % MCV (80.0-105.0) fl MCH (25.0-35.0) pg MCHC (31.0-37.0) g/dl RDW (11.5-14.5) % Plt Count (120.0-450.0) 10^3/uL MPV (7.0-11.0) fl Gran % (50.0-68.0) % Lymph % (Auto) (22.0-35.0) % [place] % (Auto) (1.0-6.0) % Eos % (Auto) (1.5-5.0) % Baso % (Auto) (0.0-3.0) % Gran # (1.4-6.5) Lymph # (Auto) (1.2-3.4) [place] # (Auto) (0.1-0.6) Eos # (Auto) (0.0-0.7) Baso # (Auto) (0.0-2.0) K/mm3 PT (9.4-12.5) SECONDS INR (0.93-1.08) APTT (25.1-36.5) Seconds pCO2 (35-45) mm/Hg pO2 36 (80-100) mm/Hg HCO3 (21-28) mmol/L ABG pH (7.35-7.45) ABG Total CO2 (22-28) mmol.L ABG O2 Saturation (95-98) % ABG Base Excess (-2.0-3.0) mmol/L ABG Potassium (3.6-5.2) mmol/L VBG pH 7.32 (7.32-7.43) VBG pCO2 32.0 L (40-60) VBG HCO3 16.5 L (21-28) mmol/l VBG Total CO2 17.5 L (22-28) mmol.L VBG O2 Sat (Calc) 78.2 H (40-65) % VBG Base Excess -8.5 L (0.0-2.0) mmol/L VBG Potassium 6.0 H (3.6-5.2) mmol/L Glucose 589 H* (65-105) mg/dl Lactate 13.7 H* (0.7-2.1) mmol/L Mechanical Rate FiO2 21.0 % Tidal Volume PEEP Sodium 158.0 H (132-148) mmol/L Potassium (3.6-5.0) mmol/L Chloride 123.0 H (98-107) mmol/L Carbon Dioxide (21-33) mmol/L Anion Gap (10-20) BUN (7-21) mg/dL Creatinine (0.7-1.2) mg/dl Est GFR ( Amer) Est GFR (Non-Af Amer) POC Glucose (mg/dL) 491 H* 391 H (65-110) mg/dL Random Glucose (70-110) mg/dL Hemoglobin A1c (4.2-6.5) % Calcium (8.4-10.5) mg/dL Phosphorus (2.5-4.5) mg/dL Magnesium (1.7-2.2) mg/dL Total Bilirubin (0.2-1.3) mg/dL AST (14-36) U/L ALT (7-56) U/L Alkaline Phosphatase (38-126) U/L C-Reactive Protein (0.0-9.9) mg/L Total Protein (5.8-8.3) g/dL Albumin (3.0-4.8) g/dL Globulin gm/dL Albumin/Globulin Ratio (1.1-1.8) Triglycerides (35-160) mg/dL Cholesterol (130-200) mg/dL LDL Cholesterol Direct (0-129) mg/dL HDL Cholesterol (29-60) mg/dL Arterial Blood Potassium (3.6-5.2) mmol/L Venous Blood Potassium 6.0 H (3.6-5.2) mmol/L Hepatitis A IgM Ab (NEGATIVE) Hep Bs Antigen (NEGATIVE) Hep B Core IgM Ab (NEGATIVE) Hepatitis C Antibody (NEGATIVE) 10/11/17 10/11/17 10/11/17 Range/Units 22:09 20:30 20:30 WBC (4.5-11.0) 10^3/ul RBC (3.5-6.1) 10^6/uL Hgb (12.0-16.0) g/dL Hct (36.0-48.0) % MCV (80.0-105.0) fl MCH (25.0-35.0) pg MCHC (31.0-37.0) g/dl RDW (11.5-14.5) % Plt Count (120.0-450.0) 10^3/uL MPV (7.0-11.0) fl Gran % (50.0-68.0) % Lymph % (Auto) (22.0-35.0) % [place] % (Auto) (1.0-6.0) % Eos % (Auto) (1.5-5.0) % Baso % (Auto) (0.0-3.0) % Gran # (1.4-6.5) Lymph # (Auto) (1.2-3.4) [place] # (Auto) (0.1-0.6) Eos # (Auto) (0.0-0.7) Baso # (Auto) (0.0-2.0) K/mm3 PT (9.4-12.5) SECONDS INR (0.93-1.08) APTT (25.1-36.5) Seconds pCO2 (35-45) mm/Hg pO2 60 H (80-100) mm/Hg HCO3 (21-28) mmol/L ABG pH (7.35-7.45) ABG Total CO2 (22-28) mmol.L ABG O2 Saturation (95-98) % ABG Base Excess (-2.0-3.0) mmol/L ABG Potassium (3.6-5.2) mmol/L VBG pH 7.24 L (7.32-7.43) VBG pCO2 32.0 L (40-60) VBG HCO3 13.7 L (21-28) mmol/l VBG Total CO2 14.7 L (22-28) mmol.L VBG O2 Sat (Calc) 94.4 H (40-65) % VBG Base Excess -12.5 L (0.0-2.0) mmol/L VBG Potassium 5.8 H (3.6-5.2) mmol/L Glucose 622 H* D (65-105) mg/dl Lactate 14.8 H* (0.7-2.1) mmol/L Mechanical Rate FiO2 21.0 % Tidal Volume PEEP Sodium 165 H* 156.0 H (132-148) mmol/L Potassium 5.7 H* (3.6-5.0) mmol/L Chloride 125 H 128.0 H (98-107) mmol/L Carbon Dioxide 15 L (21-33) mmol/L Anion Gap 31 H (10-20) BUN 71 H (7-21) mg/dL Creatinine 3.1 H (0.7-1.2) mg/dl Est GFR ( Amer) 18 Est GFR (Non-Af Amer) 15 POC Glucose (mg/dL) 415 H* (65-110) mg/dL Random Glucose 576 H* D (70-110) mg/dL Hemoglobin A1c (4.2-6.5) % Calcium 7.9 L (8.4-10.5) mg/dL Phosphorus (2.5-4.5) mg/dL Magnesium (1.7-2.2) mg/dL Total Bilirubin (0.2-1.3) mg/dL AST (14-36) U/L ALT (7-56) U/L Alkaline Phosphatase (38-126) U/L C-Reactive Protein (0.0-9.9) mg/L Total Protein (5.8-8.3) g/dL Albumin (3.0-4.8) g/dL Globulin gm/dL Albumin/Globulin Ratio (1.1-1.8) Triglycerides (35-160) mg/dL Cholesterol (130-200) mg/dL LDL Cholesterol Direct (0-129) mg/dL HDL Cholesterol (29-60) mg/dL Arterial Blood Potassium (3.6-5.2) mmol/L Venous Blood Potassium 5.8 H (3.6-5.2) mmol/L Hepatitis A IgM Ab (NEGATIVE) Hep Bs Antigen (NEGATIVE) Hep B Core IgM Ab (NEGATIVE) Hepatitis C Antibody (NEGATIVE) 10/11/17 10/11/17 10/11/17 Range/Units 16:27 14:51 13:55 WBC (4.5-11.0) 10^3/ul RBC (3.5-6.1) 10^6/uL Hgb (12.0-16.0) g/dL Hct (36.0-48.0) % MCV (80.0-105.0) fl MCH (25.0-35.0) pg MCHC (31.0-37.0) g/dl RDW (11.5-14.5) % Plt Count (120.0-450.0) 10^3/uL MPV (7.0-11.0) fl Gran % (50.0-68.0) % Lymph % (Auto) (22.0-35.0) % [place] % (Auto) (1.0-6.0) % Eos % (Auto) (1.5-5.0) % Baso % (Auto) (0.0-3.0) % Gran # (1.4-6.5) Lymph # (Auto) (1.2-3.4) [place] # (Auto) (0.1-0.6) Eos # (Auto) (0.0-0.7) Baso # (Auto) (0.0-2.0) K/mm3 PT (9.4-12.5) SECONDS INR (0.93-1.08) APTT (25.1-36.5) Seconds pCO2 33 L (35-45) mm/Hg pO2 84.0 (80-100) mm/Hg HCO3 10.5 L (21-28) mmol/L ABG pH 7.11 L* (7.35-7.45) ABG Total CO2 11.5 L (22-28) mmol.L ABG O2 Saturation 97.0 (95-98) % ABG Base Excess -18.0 L (-2.0-3.0) mmol/L ABG Potassium 6.4 H* (3.6-5.2) mmol/L VBG pH (7.32-7.43) VBG pCO2 (40-60) VBG HCO3 (21-28) mmol/l VBG Total CO2 (22-28) mmol.L VBG O2 Sat (Calc) (40-65) % VBG Base Excess (0.0-2.0) mmol/L VBG Potassium (3.6-5.2) mmol/L Glucose 277 H (65-105) mg/dl Lactate 13.2 H* (0.7-2.1) mmol/L Mechanical Rate 24 FiO2 100.0 % Tidal Volume 350 PEEP 5 Sodium 162.0 H* (132-148) mmol/L Potassium (3.6-5.0) mmol/L Chloride 135.0 H (98-107) mmol/L Carbon Dioxide (21-33) mmol/L Anion Gap (10-20) BUN (7-21) mg/dL Creatinine (0.7-1.2) mg/dl Est GFR ( Amer) Est GFR (Non-Af Amer) POC Glucose (mg/dL) 454 H* 193 H (65-110) mg/dL Random Glucose (70-110) mg/dL Hemoglobin A1c (4.2-6.5) % Calcium (8.4-10.5) mg/dL Phosphorus (2.5-4.5) mg/dL Magnesium (1.7-2.2) mg/dL Total Bilirubin (0.2-1.3) mg/dL AST (14-36) U/L ALT (7-56) U/L Alkaline Phosphatase (38-126) U/L C-Reactive Protein (0.0-9.9) mg/L Total Protein (5.8-8.3) g/dL Albumin (3.0-4.8) g/dL Globulin gm/dL Albumin/Globulin Ratio (1.1-1.8) Triglycerides (35-160) mg/dL Cholesterol (130-200) mg/dL LDL Cholesterol Direct (0-129) mg/dL HDL Cholesterol (29-60) mg/dL Arterial Blood Potassium 6.4 H* (3.6-5.2) mmol/L Venous Blood Potassium (3.6-5.2) mmol/L Hepatitis A IgM Ab (NEGATIVE) Hep Bs Antigen (NEGATIVE) Hep B Core IgM Ab (NEGATIVE) Hepatitis C Antibody (NEGATIVE) 10/11/17 10/11/17 10/11/17 Range/Units 13:30 13:30 13:30 WBC 8.6 (4.5-11.0) 10^3/ul RBC 3.49 L (3.5-6.1) 10^6/uL Hgb 9.7 L (12.0-16.0) g/dL Hct 35.6 L (36.0-48.0) % MCV 102.0 (80.0-105.0) fl MCH 27.8 (25.0-35.0) pg MCHC 27.2 L (31.0-37.0) g/dl RDW 15.0 H (11.5-14.5) % Plt Count 105 L (120.0-450.0) 10^3/uL MPV 12.8 H (7.0-11.0) fl Gran % (50.0-68.0) % Lymph % (Auto) (22.0-35.0) % [place] % (Auto) (1.0-6.0) % Eos % (Auto) (1.5-5.0) % Baso % (Auto) (0.0-3.0) % Gran # (1.4-6.5) Lymph # (Auto) (1.2-3.4) [place] # (Auto) (0.1-0.6) Eos # (Auto) (0.0-0.7) Baso # (Auto) (0.0-2.0) K/mm3 PT (9.4-12.5) SECONDS INR (0.93-1.08) APTT 69.4 H (25.1-36.5) Seconds pCO2 (35-45) mm/Hg pO2 (80-100) mm/Hg HCO3 (21-28) mmol/L ABG pH (7.35-7.45) ABG Total CO2 (22-28) mmol.L ABG O2 Saturation (95-98) % ABG Base Excess (-2.0-3.0) mmol/L ABG Potassium (3.6-5.2) mmol/L VBG pH (7.32-7.43) VBG pCO2 (40-60) VBG HCO3 (21-28) mmol/l VBG Total CO2 (22-28) mmol.L VBG O2 Sat (Calc) (40-65) % VBG Base Excess (0.0-2.0) mmol/L VBG Potassium (3.6-5.2) mmol/L Glucose (65-105) mg/dl Lactate (0.7-2.1) mmol/L Mechanical Rate FiO2 % Tidal Volume PEEP Sodium 169 H* (132-148) mmol/L Potassium 6.2 H* D (3.6-5.0) mmol/L Chloride 134 H (98-107) mmol/L Carbon Dioxide 13 L (21-33) mmol/L Anion Gap 28 H (10-20) BUN 68 H (7-21) mg/dL Creatinine 2.6 H (0.7-1.2) mg/dl Est GFR ( Amer) 22 Est GFR (Non-Af Amer) 18 POC Glucose (mg/dL) (65-110) mg/dL Random Glucose 264 H (70-110) mg/dL Hemoglobin A1c (4.2-6.5) % Calcium 8.0 L (8.4-10.5) mg/dL Phosphorus 6.6 H (2.5-4.5) mg/dL Magnesium 2.4 H (1.7-2.2) mg/dL Total Bilirubin 0.8 (0.2-1.3) mg/dL AST 1479 H (14-36) U/L ALT 549 H (7-56) U/L Alkaline Phosphatase 131 H D (38-126) U/L C-Reactive Protein (0.0-9.9) mg/L Total Protein 4.5 L (5.8-8.3) g/dL Albumin 2.0 L (3.0-4.8) g/dL Globulin 2.4 gm/dL Albumin/Globulin Ratio 0.8 L (1.1-1.8) Triglycerides (35-160) mg/dL Cholesterol (130-200) mg/dL LDL Cholesterol Direct (0-129) mg/dL HDL Cholesterol (29-60) mg/dL Arterial Blood Potassium (3.6-5.2) mmol/L Venous Blood Potassium (3.6-5.2) mmol/L Hepatitis A IgM Ab (NEGATIVE) Hep Bs Antigen (NEGATIVE) Hep B Core IgM Ab (NEGATIVE) Hepatitis C Antibody (NEGATIVE) 10/11/17 10/11/17 10/11/17 Range/Units 11:50 11:23 04:45 WBC (4.5-11.0) 10^3/ul RBC (3.5-6.1) 10^6/uL Hgb (12.0-16.0) g/dL Hct (36.0-48.0) % MCV (80.0-105.0) fl MCH (25.0-35.0) pg MCHC (31.0-37.0) g/dl RDW (11.5-14.5) % Plt Count (120.0-450.0) 10^3/uL MPV (7.0-11.0) fl Gran % (50.0-68.0) % Lymph % (Auto) (22.0-35.0) % [place] % (Auto) (1.0-6.0) % Eos % (Auto) (1.5-5.0) % Baso % (Auto) (0.0-3.0) % Gran # (1.4-6.5) Lymph # (Auto) (1.2-3.4) [place] # (Auto) (0.1-0.6) Eos # (Auto) (0.0-0.7) Baso # (Auto) (0.0-2.0) K/mm3 PT (9.4-12.5) SECONDS INR (0.93-1.08) APTT (25.1-36.5) Seconds pCO2 (35-45) mm/Hg pO2 (80-100) mm/Hg HCO3 (21-28) mmol/L ABG pH (7.35-7.45) ABG Total CO2 (22-28) mmol.L ABG O2 Saturation (95-98) % ABG Base Excess (-2.0-3.0) mmol/L ABG Potassium (3.6-5.2) mmol/L VBG pH (7.32-7.43) VBG pCO2 (40-60) VBG HCO3 (21-28) mmol/l VBG Total CO2 (22-28) mmol.L VBG O2 Sat (Calc) (40-65) % VBG Base Excess (0.0-2.0) mmol/L VBG Potassium (3.6-5.2) mmol/L Glucose (65-105) mg/dl Lactate (0.7-2.1) mmol/L Mechanical Rate FiO2 % Tidal Volume PEEP Sodium (132-148) mmol/L Potassium (3.6-5.0) mmol/L Chloride (98-107) mmol/L Carbon Dioxide (21-33) mmol/L Anion Gap (10-20) BUN (7-21) mg/dL Creatinine (0.7-1.2) mg/dl Est GFR ( Amer) Est GFR (Non-Af Amer) POC Glucose (mg/dL) 62 L (65-110) mg/dL Random Glucose (70-110) mg/dL Hemoglobin A1c 11.7 H (4.2-6.5) % Calcium (8.4-10.5) mg/dL Phosphorus (2.5-4.5) mg/dL Magnesium (1.7-2.2) mg/dL Total Bilirubin (0.2-1.3) mg/dL AST (14-36) U/L ALT (7-56) U/L Alkaline Phosphatase (38-126) U/L C-Reactive Protein 67.60 H (0.0-9.9) mg/L Total Protein (5.8-8.3) g/dL Albumin (3.0-4.8) g/dL Globulin gm/dL Albumin/Globulin Ratio (1.1-1.8) Triglycerides (35-160) mg/dL Cholesterol (130-200) mg/dL LDL Cholesterol Direct (0-129) mg/dL HDL Cholesterol (29-60) mg/dL Arterial Blood Potassium (3.6-5.2) mmol/L Venous Blood Potassium (3.6-5.2) mmol/L Hepatitis A IgM Ab (NEGATIVE) Hep Bs Antigen (NEGATIVE) Hep B Core IgM Ab (NEGATIVE) Hepatitis C Antibody (NEGATIVE) 10/11/17 Range/Units 04:45 WBC (4.5-11.0) 10^3/ul RBC (3.5-6.1) 10^6/uL Hgb (12.0-16.0) g/dL Hct (36.0-48.0) % MCV (80.0-105.0) fl MCH (25.0-35.0) pg MCHC (31.0-37.0) g/dl RDW (11.5-14.5) % Plt Count (120.0-450.0) 10^3/uL MPV (7.0-11.0) fl Gran % (50.0-68.0) % Lymph % (Auto) (22.0-35.0) % [place] % (Auto) (1.0-6.0) % Eos % (Auto) (1.5-5.0) % Baso % (Auto) (0.0-3.0) % Gran # (1.4-6.5) Lymph # (Auto) (1.2-3.4) [place] # (Auto) (0.1-0.6) Eos # (Auto) (0.0-0.7) Baso # (Auto) (0.0-2.0) K/mm3 PT (9.4-12.5) SECONDS INR (0.93-1.08) APTT (25.1-36.5) Seconds pCO2 (35-45) mm/Hg pO2 (80-100) mm/Hg HCO3 (21-28) mmol/L ABG pH (7.35-7.45) ABG Total CO2 (22-28) mmol.L ABG O2 Saturation (95-98) % ABG Base Excess (-2.0-3.0) mmol/L ABG Potassium (3.6-5.2) mmol/L VBG pH (7.32-7.43) VBG pCO2 (40-60) VBG HCO3 (21-28) mmol/l VBG Total CO2 (22-28) mmol.L VBG O2 Sat (Calc) (40-65) % VBG Base Excess (0.0-2.0) mmol/L VBG Potassium (3.6-5.2) mmol/L Glucose (65-105) mg/dl Lactate (0.7-2.1) mmol/L Mechanical Rate FiO2 % Tidal Volume PEEP Sodium (132-148) mmol/L Potassium (3.6-5.0) mmol/L Chloride (98-107) mmol/L Carbon Dioxide (21-33) mmol/L Anion Gap (10-20) BUN (7-21) mg/dL Creatinine (0.7-1.2) mg/dl Est GFR ( Amer) Est GFR (Non-Af Amer) POC Glucose (mg/dL) (65-110) mg/dL Random Glucose (70-110) mg/dL Hemoglobin A1c (4.2-6.5) % Calcium (8.4-10.5) mg/dL Phosphorus (2.5-4.5) mg/dL Magnesium (1.7-2.2) mg/dL Total Bilirubin (0.2-1.3) mg/dL AST (14-36) U/L ALT (7-56) U/L Alkaline Phosphatase (38-126) U/L C-Reactive Protein (0.0-9.9) mg/L Total Protein (5.8-8.3) g/dL Albumin (3.0-4.8) g/dL Globulin gm/dL Albumin/Globulin Ratio (1.1-1.8) Triglycerides (35-160) mg/dL Cholesterol (130-200) mg/dL LDL Cholesterol Direct (0-129) mg/dL HDL Cholesterol (29-60) mg/dL Arterial Blood Potassium (3.6-5.2) mmol/L Venous Blood Potassium (3.6-5.2) mmol/L Hepatitis A IgM Ab Negative (NEGATIVE) Hep Bs Antigen Negative (NEGATIVE) Hep B Core IgM Ab Negative (NEGATIVE) Hepatitis C Antibody Reactive (NEGATIVE) Laboratory Results - last 24 hr 10/11/17 10/11/17 10/11/17 04:45 04:45 11:23 WBC RBC Hgb Hct MCV MCH MCHC RDW Plt Count MPV Gran % Lymph % (Auto) [place] % (Auto) Eos % (Auto) Baso % (Auto) Gran # Lymph # (Auto) [place] # (Auto) Eos # (Auto) Baso # (Auto) PT INR APTT pCO2 pO2 HCO3 ABG pH ABG Total CO2 ABG O2 Saturation ABG Base Excess ABG Potassium VBG pH VBG pCO2 VBG HCO3 VBG Total CO2 VBG O2 Sat (Calc) VBG Base Excess VBG Potassium Glucose Lactate Mechanical Rate FiO2 Tidal Volume PEEP Sodium Potassium Chloride Carbon Dioxide Anion Gap BUN Creatinine Est GFR ( Amer) Est GFR (Non-Af Amer) POC Glucose (mg/dL) 62 L Random Glucose Hemoglobin A1c Calcium Phosphorus Magnesium Total Bilirubin AST ALT Alkaline Phosphatase C-Reactive Protein 67.60 H Total Protein Albumin Globulin Albumin/Globulin Ratio Triglycerides Cholesterol LDL Cholesterol Direct HDL Cholesterol Arterial Blood Potassium Venous Blood Potassium Hepatitis A IgM Ab Negative Hep Bs Antigen Negative Hep B Core IgM Ab Negative Hepatitis C Antibody Reactive 10/11/17 10/11/17 10/11/17 11:50 13:30 13:30 WBC RBC Hgb Hct MCV MCH MCHC RDW Plt Count MPV Gran % Lymph % (Auto) [place] % (Auto) Eos % (Auto) Baso % (Auto) Gran # Lymph # (Auto) [place] # (Auto) Eos # (Auto) Baso # (Auto) PT INR APTT 69.4 H pCO2 pO2 HCO3 ABG pH ABG Total CO2 ABG O2 Saturation ABG Base Excess ABG Potassium VBG pH VBG pCO2 VBG HCO3 VBG Total CO2 VBG O2 Sat (Calc) VBG Base Excess VBG Potassium Glucose Lactate Mechanical Rate FiO2 Tidal Volume PEEP Sodium 169 H* Potassium 6.2 H* D Chloride 134 H Carbon Dioxide 13 L Anion Gap 28 H BUN 68 H Creatinine 2.6 H Est GFR ( Amer) 22 Est GFR (Non-Af Amer) 18 POC Glucose (mg/dL) Random Glucose 264 H Hemoglobin A1c 11.7 H Calcium 8.0 L Phosphorus 6.6 H Magnesium 2.4 H Total Bilirubin 0.8 AST 1479 H ALT 549 H Alkaline Phosphatase 131 H D C-Reactive Protein Total Protein 4.5 L Albumin 2.0 L Globulin 2.4 Albumin/Globulin Ratio 0.8 L Triglycerides Cholesterol LDL Cholesterol Direct HDL Cholesterol Arterial Blood Potassium Venous Blood Potassium Hepatitis A IgM Ab Hep Bs Antigen Hep B Core IgM Ab Hepatitis C Antibody 10/11/17 10/11/17 10/11/17 13:30 13:55 14:51 WBC 8.6 RBC 3.49 L Hgb 9.7 L Hct 35.6 L MCV 102.0 MCH 27.8 MCHC 27.2 L RDW 15.0 H Plt Count 105 L MPV 12.8 H Gran % Lymph % (Auto) [place] % (Auto) Eos % (Auto) Baso % (Auto) Gran # Lymph # (Auto) [place] # (Auto) Eos # (Auto) Baso # (Auto) PT INR APTT pCO2 33 L pO2 84.0 HCO3 10.5 L ABG pH 7.11 L* ABG Total CO2 11.5 L ABG O2 Saturation 97.0 ABG Base Excess -18.0 L ABG Potassium 6.4 H* VBG pH VBG pCO2 VBG HCO3 VBG Total CO2 VBG O2 Sat (Calc) VBG Base Excess VBG Potassium Glucose 277 H Lactate 13.2 H* Mechanical Rate 24 FiO2 100.0 Tidal Volume 350 PEEP 5 Sodium 162.0 H* Potassium Chloride 135.0 H Carbon Dioxide Anion Gap BUN Creatinine Est GFR ( Amer) Est GFR (Non-Af Amer) POC Glucose (mg/dL) 193 H Random Glucose Hemoglobin A1c Calcium Phosphorus Magnesium Total Bilirubin AST ALT Alkaline Phosphatase C-Reactive Protein Total Protein Albumin Globulin Albumin/Globulin Ratio Triglycerides Cholesterol LDL Cholesterol Direct HDL Cholesterol Arterial Blood Potassium 6.4 H* Venous Blood Potassium Hepatitis A IgM Ab Hep Bs Antigen Hep B Core IgM Ab Hepatitis C Antibody 10/11/17 10/11/17 10/11/17 16:27 20:30 20:30 WBC RBC Hgb Hct MCV MCH MCHC RDW Plt Count MPV Gran % Lymph % (Auto) [place] % (Auto) Eos % (Auto) Baso % (Auto) Gran # Lymph # (Auto) [place] # (Auto) Eos # (Auto) Baso # (Auto) PT INR APTT pCO2 pO2 60 H HCO3 ABG pH ABG Total CO2 ABG O2 Saturation ABG Base Excess ABG Potassium VBG pH 7.24 L VBG pCO2 32.0 L VBG HCO3 13.7 L VBG Total CO2 14.7 L VBG O2 Sat (Calc) 94.4 H VBG Base Excess -12.5 L VBG Potassium 5.8 H Glucose 622 H* D Lactate 14.8 H* Mechanical Rate FiO2 21.0 Tidal Volume PEEP Sodium 156.0 H 165 H* Potassium 5.7 H* Chloride 128.0 H 125 H Carbon Dioxide 15 L Anion Gap 31 H BUN 71 H Creatinine 3.1 H Est GFR ( Amer) 18 Est GFR (Non-Af Amer) 15 POC Glucose (mg/dL) 454 H* Random Glucose 576 H* D Hemoglobin A1c Calcium 7.9 L Phosphorus Magnesium Total Bilirubin AST ALT Alkaline Phosphatase C-Reactive Protein Total Protein Albumin Globulin Albumin/Globulin Ratio Triglycerides Cholesterol LDL Cholesterol Direct HDL Cholesterol Arterial Blood Potassium Venous Blood Potassium 5.8 H Hepatitis A IgM Ab Hep Bs Antigen Hep B Core IgM Ab Hepatitis C Antibody 10/11/17 10/12/17 10/12/17 22:09 00:30 01:20 WBC RBC Hgb Hct MCV MCH MCHC RDW Plt Count MPV Gran % Lymph % (Auto) [place] % (Auto) Eos % (Auto) Baso % (Auto) Gran # Lymph # (Auto) [place] # (Auto) Eos # (Auto) Baso # (Auto) PT INR APTT pCO2 pO2 36 HCO3 ABG pH ABG Total CO2 ABG O2 Saturation ABG Base Excess ABG Potassium VBG pH 7.32 VBG pCO2 32.0 L VBG HCO3 16.5 L VBG Total CO2 17.5 L VBG O2 Sat (Calc) 78.2 H VBG Base Excess -8.5 L VBG Potassium 6.0 H Glucose 589 H* Lactate 13.7 H* Mechanical Rate FiO2 21.0 Tidal Volume PEEP Sodium 158.0 H Potassium Chloride 123.0 H Carbon Dioxide Anion Gap BUN Creatinine Est GFR ( Amer) Est GFR (Non-Af Amer) POC Glucose (mg/dL) 415 H* 391 H Random Glucose Hemoglobin A1c Calcium Phosphorus Magnesium Total Bilirubin AST ALT Alkaline Phosphatase C-Reactive Protein Total Protein Albumin Globulin Albumin/Globulin Ratio Triglycerides Cholesterol LDL Cholesterol Direct HDL Cholesterol Arterial Blood Potassium Venous Blood Potassium 6.0 H Hepatitis A IgM Ab Hep Bs Antigen Hep B Core IgM Ab Hepatitis C Antibody 10/12/17 10/12/17 10/12/17 05:05 06:20 06:20 WBC 15.9 H D RBC 3.32 L Hgb 9.2 L Hct 31.9 L MCV 96.1 D MCH 27.7 MCHC 28.8 L RDW 14.7 H Plt Count 30 L* MPV Gran % 85.7 H Lymph % (Auto) 13.0 L [place] % (Auto) 1.2 Eos % (Auto) 0.0 L Baso % (Auto) 0.1 Gran # 13.60 H Lymph # (Auto) 2.1 [place] # (Auto) 0.2 Eos # (Auto) 0.0 Baso # (Auto) 0.02 PT INR APTT pCO2 pO2 HCO3 ABG pH ABG Total CO2 ABG O2 Saturation ABG Base Excess ABG Potassium VBG pH VBG pCO2 VBG HCO3 VBG Total CO2 VBG O2 Sat (Calc) VBG Base Excess VBG Potassium Glucose Lactate Mechanical Rate FiO2 Tidal Volume PEEP Sodium 161 H* Potassium 5.1 H Chloride 119 H Carbon Dioxide 21 Anion Gap 26 H BUN 77 H Creatinine 3.3 H Est GFR ( Amer) 16 Est GFR (Non-Af Amer) 14 POC Glucose (mg/dL) 491 H* Random Glucose 524 H* Hemoglobin A1c Calcium 7.2 L Phosphorus Magnesium Total Bilirubin 0.9 AST 2286 H ALT 744 H Alkaline Phosphatase 90 C-Reactive Protein Total Protein 4.5 L Albumin 2.1 L Globulin 2.5 Albumin/Globulin Ratio 0.8 L Triglycerides 93 Cholesterol < 50 L LDL Cholesterol Direct < 30 HDL Cholesterol 12 L Arterial Blood Potassium Venous Blood Potassium Hepatitis A IgM Ab Hep Bs Antigen Hep B Core IgM Ab Hepatitis C Antibody 10/12/17 10/12/17 10/12/17 06:20 06:20 07:45 WBC RBC Hgb Hct MCV MCH MCHC RDW Plt Count MPV Gran % Lymph % (Auto) [place] % (Auto) Eos % (Auto) Baso % (Auto) Gran # Lymph # (Auto) [place] # (Auto) Eos # (Auto) Baso # (Auto) PT 31.8 H INR 2.71 H APTT 33.6 pCO2 pO2 55 HCO3 ABG pH ABG Total CO2 ABG O2 Saturation ABG Base Excess ABG Potassium VBG pH 7.33 VBG pCO2 37.0 L VBG HCO3 19.5 L VBG Total CO2 20.6 L VBG O2 Sat (Calc) 92.8 H VBG Base Excess -5.8 L VBG Potassium 5.2 Glucose 564 H* Lactate 12.2 H* Mechanical Rate FiO2 21.0 Tidal Volume PEEP Sodium 157.0 H Potassium Chloride 120.0 H Carbon Dioxide Anion Gap BUN Creatinine Est GFR ( Amer) Est GFR (Non-Af Amer) POC Glucose (mg/dL) 446 H* Random Glucose Hemoglobin A1c Calcium Phosphorus Magnesium Total Bilirubin AST ALT Alkaline Phosphatase C-Reactive Protein Total Protein Albumin Globulin Albumin/Globulin Ratio Triglycerides Cholesterol LDL Cholesterol Direct HDL Cholesterol Arterial Blood Potassium Venous Blood Potassium 5.2 Hepatitis A IgM Ab Hep Bs Antigen Hep B Core IgM Ab Hepatitis C Antibody 10/12/17 08:30 WBC RBC Hgb Hct MCV MCH MCHC RDW Plt Count MPV Gran % Lymph % (Auto) [place] % (Auto) Eos % (Auto) Baso % (Auto) Gran # Lymph # (Auto) [place] # (Auto) Eos # (Auto) Baso # (Auto) PT INR APTT pCO2 29 L pO2 58.0 L HCO3 19.2 L ABG pH 7.43 ABG Total CO2 20.1 L ABG O2 Saturation 95.2 ABG Base Excess -3.9 L ABG Potassium 4.7 VBG pH VBG pCO2 VBG HCO3 VBG Total CO2 VBG O2 Sat (Calc) VBG Base Excess VBG Potassium Glucose 510 H* Lactate 11.2 H* Mechanical Rate 16 FiO2 60.0 Tidal Volume 350 PEEP 5 Sodium 153.0 H Potassium Chloride 124.0 H Carbon Dioxide Anion Gap BUN Creatinine Est GFR ( Amer) Est GFR (Non-Af Amer) POC Glucose (mg/dL) Random Glucose Hemoglobin A1c Calcium Phosphorus Magnesium Total Bilirubin AST ALT Alkaline Phosphatase C-Reactive Protein Total Protein Albumin Globulin Albumin/Globulin Ratio Triglycerides Cholesterol LDL Cholesterol Direct HDL Cholesterol Arterial Blood Potassium 4.7 Venous Blood Potassium Hepatitis A IgM Ab Hep Bs Antigen Hep B Core IgM Ab Hepatitis C Antibody EKG/Cardiology Studies: Cardiology / EKG Studies 10/11/17 14:17 EKG [ELECTROCARDIOGRAM] Stat Comment: Reason For Exam: hyperkalemia Assessment/Plan - Assessment and Plan (Free Text) Assessment: Patient seen and examined on rounds with resident, agree with note with following additions/exceptions: Patient is 77yo female with PMhx of DM, severe dementia, malnutrition, [facility] for [facility] Pt found to be in HONK, hypernatremic, dehydrated, in OSWALDO, started on insulin drip, and IVF hydration. Yesterday patient went into PEA arrest ~15 minutes, ROSC achieved, intubated, central line placed. Currently on Vasopressor support, Vasopressin only, Levophed titrated OFF Multiple electrolyte derangements, all repleted aggressively LE dopplers negative CXR with bilateral PNA, on antibiotics Off sedation, minimally responsive to noxious stimuli Neurology consult Hypernatremia HONK Dehydration OSWALDO AMS Severe Dementia Septic Shock PNA Cardiac Arrest s/p ROSC Recommend: - cont with vent support, low tidal vol ventilation - duonebs PRN - panculture, BCx, UCx, Procal - ID follow up - Broad spectrum antibiotics, Merrem, Vanco, renally dosed - obtain CXR today - start insulin drip - 1/2NS fluids - free water 300cc q6hr via NGT - NPO - repeat CBC - FS q1hr - Vasopressor support, goal MAP 65 - Stress dose steroids - ECHO - BMP q6hr - renal sono - UA, Ulytes - monitor HH, platelets - GI ppx - DVT ppx, SCDs - palliative care follow up - monitor in micu extremely poor prognosis critical care time 35 minutes
[2017-10-12] MEDS: Meropenem 500 MG in Sodium Chloride 0.9% 50 ML IVPB SCH (09:35)
--- NOTE | 2017-10-12 10:03 | RAD ---
HISTORY: intubated r/o pneomonia COMPARISON: 10/11/2017 FINDINGS: LUNGS: There is improvement in the bilateral infiltrates. The left upper lobe infiltrate has completely resolved. There is a small residual infiltrate at the right lung base. PLEURA: No significant pleural effusion identified, no pneumothorax apparent. CARDIOVASCULAR: Normal. OSSEOUS STRUCTURES: No significant abnormalities. VISUALIZED UPPER ABDOMEN: Normal. OTHER FINDINGS: Endotracheal and nasogastric tubes in satisfactory position IMPRESSION: Improvement in bilateral infiltrates
[2017-10-12] MEDS: Sodium Chloride 0.45% 1,000 ML IV SCH ×2 (11:08→21:42)
[2017-10-12 12:01] LABS: VENOUS BLOOD GAS BASE EXCESS -3.7 mmol/L (0.0-2.0); VENOUS BLOOD GAS PO2 53 mm/Hg (30-55); VENOUS BLOOD PH 7.28 (7.32-7.43)
[2017-10-12 12:04] LABS: BASO # 0.01 K/mm3 (0.0-2.0); BASO % 0.1 % (0.0-3.0); EOS % 0.1 % (1.5-5.0); GRAN # 12.33 (1.4-6.5); GRAN % 85.7 % (50.0-68.0); HEMOGLOBIN 8.9 g/dL (12.0-16.0); LYMPH # 1.9 (1.2-3.4); LYMPH % 12.9 % (22.0-35.0); MEAN CELL VOLUME 95.5 fl (80.0-105.0); MEAN CORPUSCULAR HEMOGLOBIN 28.4 pg (25.0-35.0); MEAN CORPUSCULAR HGB CONC 29.8 g/dl (31.0-37.0); MONO # 0.2 (0.1-0.6); MONO % 1.2 % (1.0-6.0); RBC 3.13 10^6/uL (3.5-6.1); RED CELL DISTRIBUTION WIDTH 14.9 % (11.5-14.5); WHITE BLOOD COUNT 14.4 10^3/ul (4.5-11.0)
[2017-10-12 12:06] LABS: PLATELET COUNT 24 10^3/uL (120.0-450.0)
--- NOTE | 2017-10-12 12:30 | PN ---
DATE: 10/12/2017 SUBJECTIVE: The patient is 77 years old, remains intubated, minimally responsive, getting weaned off of pressors. PHYSICAL EXAMINATION: VITAL SIGNS: She is afebrile, pulse 82, respirations 18, blood pressure 117/51. LUNGS: Bilateral fair respiratory effort. HEART: S1 and S2 audible. ABDOMEN: Soft. Not distended. Bowel sounds are positive. NEUROLOGIC: She is unresponsive and sedated. LABORATORY EXAM: WBC is 15.9, hemoglobin 9.2, hematocrit 31.9, platelet Of 30. Chemistry: Sodium 161, potassium 5.1, chloride 119, CO2 of 21, BUN 77, creatinine 3.3, blood sugar is 446. Had x-ray chest done. X-ray chest shows improvement in bilateral infiltrate. ASSESSMENT: 1. Sepsis secondary to pneumonia. 2. Status post upper gastrointestinal bleed. 3. Hypernatremia. 4. Respiratory failure, on ventilator. 5. Status post cardiac arrest. 6. Acute renal failure. 7. Hyperkalemia. PLAN: The patient is currently on vent support. Her pressor is being tapered down. Continue her on current antibiotic that is doxycycline, meropenem and a few doses of vancomycin. Continue on vent support. Monitor her electrolytes and blood sugar. The patient is thrombocytopenic. I spoke to home decorator. We will hold her Protonix. Start her on Pepcid. Monitor electrolytes and CBC, CMP in the a.m. Davon Marie MD
[2017-10-12] MEDS: Doxercalciferol 4 mcg/2 ml Inj IV SCH (13:53)
--- NOTE | 2017-10-12 14:50 | PN ---
DATE: 10/12/2017 SUBJECTIVE: Patient is in bed, in no acute distress, nontoxic. The patient is seen earlier today in [facility], bed 3. The patient remains in the ICU. PHYSICAL EXAMINATION: VITAL SIGNS: Temperature of 96, T max is 104, blood pressure is 117/50, respiratory rate of 22 and heart rate of 95. HEENT: Unremarkable. NECK: Supple. LUNGS: Have decreased breath sounds. HEART: Normal S1, S2. ABDOMEN: Soft. LABORATORY EXAMINATION: Reveals the patient to have a white count of 15,900, platelets of 30,000, hemoglobin of 9. BUN of 77, creatinine of 3.3. AST is 2286. Hepatitis serology, hep C is positive. Review of orders reveals the patient received vancomycin, doxycycline and meropenem. The patient had a chest x-ray, it showed improvement in infiltrates. Dr. Soto Moura' progress note is reviewed and Dr. Marie's note is reviewed. ASSESSMENT AND PLAN: This is a 77-year-old female with hypertension, status post right hip replacement, dementia, sent from a retirement because of confusion, respiratory failure and fevers with severe sepsis, ventilator-dependent respiratory failure, intubated on a ventilator with acute encephalopathy, acute on chronic renal failure due to left lower lobe healthcare-associated pneumonia; on vancomycin, meropenem, doxycycline and thus far the blood cultures are negative and methicillin-resistant Staphylococcus aureus is detected in the nares. We will follow closely with you. Legionella is pending. Influenza is pending. Hepatitis C is positive and procalcitonin is 0.45. Israel Terry MD
[2017-10-12 17:23] LABS: VENOUS BLOOD GAS BASE EXCESS 0.1 mmol/L (0.0-2.0); VENOUS BLOOD GAS PO2 54 mm/Hg (30-55)
[2017-10-12 22:11] LABS: EOS % 0.1 % (1.5-5.0); GRAN # 9.6 (1.4-6.5); GRAN % 82.9 % (50.0-68.0); HEMOGLOBIN 8.4 g/dL (12.0-16.0); LYMPH # 1.7 (1.2-3.4); LYMPH % 14.8 % (22.0-35.0); MEAN CELL VOLUME 92.3 fl (80.0-105.0); MEAN CORPUSCULAR HGB CONC 30.3 g/dl (31.0-37.0); MEAN PLATELET VOLUME 11.5 fl (7.0-11.0); MONO # 0.3 (0.1-0.6); MONO % 2.2 % (1.0-6.0); RED CELL DISTRIBUTION WIDTH 14.7 % (11.5-14.5); WHITE BLOOD COUNT 11.6 10^3/ul (4.5-11.0)
[2017-10-12 22:16] LABS: VENOUS BLOOD GAS BASE EXCESS 4.2 mmol/L (0.0-2.0); VENOUS BLOOD GAS PO2 197 mm/Hg (30-55); VENOUS BLOOD PH 7.36 (7.32-7.43)
[2017-10-12 22:51] LABS: ALB/GLOB RATIO 0.8 (1.1-1.8); ALBUMIN 2.1 g/dL (3.0-4.8); CALCIUM 6.8 mg/dL (8.4-10.5)
[2017-10-12 23:48] LABS: URINE BILIRUBIN NEGATIVE (NEGATIVE); URINE BLOOD LARGE (NEGATIVE); URINE GLUCOSE (UA) NEGATIVE (NEGATIVE); URINE LEUKOCYTE ESTERASE MODERATE Leu/uL (NEGATIVE); URINE PROTEIN 100 mg/dL (<30 mg/dL); URINE UROBILINOGEN 0.2 E.U./dL (<1 E.U./dL)
[2017-10-12 23:57] LABS: URINE APPEARANCE CLOUDY (CLEAR); URINE COLOR DARK YELLOW (YELLOW)
[2017-10-13] MEDS ORDERED: Dextrose 50% SYRINGE Inj (50 ml) ONE (00:09)
[2017-10-13] MEDS ORDERED: Dextrose 50% SYRINGE Inj (50 ml) IVP ONE (00:15)
[2017-10-13 01:09] LABS: URINE RBC TNTC /hpf (0-2)
[2017-10-13 01:10] LABS: URINE BACTERIA MANY (NEG)
[2017-10-13] MEDS: Albuterol-Ipratrop 3 mg / 0.5 (3 ml) UD IH SCH ×4 (02:06→20:00)
[2017-10-13] MEDS: Fentanyl 1000mcg/100ml NS 1,000 MCG/100 ML BAG IV PRN (05:08)
[2017-10-13] MEDS: Vasopressin 20 UNITS in Dextrose 5% In Water 100 ML IV SCH (06:41)
[2017-10-13 06:50] LABS: GRAN # 9.28 (1.4-6.5); HEMOGLOBIN 8.5 g/dL (12.0-16.0); LYMPH # 0.6 (1.2-3.4); LYMPH % 5.6 % (22.0-35.0); MEAN CELL VOLUME 92.7 fl (80.0-105.0); MEAN CORPUSCULAR HEMOGLOBIN 28.3 pg (25.0-35.0); MEAN CORPUSCULAR HGB CONC 30.6 g/dl (31.0-37.0); MONO # 0.7 (0.1-0.6); MONO % 6.4 % (1.0-6.0); PLATELET COUNT 36 10^3/uL (120.0-450.0); RED CELL DISTRIBUTION WIDTH 14.8 % (11.5-14.5); WHITE BLOOD COUNT 10.5 10^3/ul (4.5-11.0)
[2017-10-13 06:53] LABS: VENOUS BLOOD GAS BASE EXCESS -1.1 mmol/L (0.0-2.0); VENOUS BLOOD GAS PO2 165 mm/Hg (30-55); VENOUS BLOOD PH 7.37 (7.32-7.43)
[2017-10-13 07:14] LABS: INR 2.2 (0.93-1.08); PARTIAL THROMBOPLASTIN TIME 31.7 Seconds (25.1-36.5); PROTHROMBIN TIME 25.7 SECONDS (9.4-12.5)
[2017-10-13 07:26] LABS: ALB/GLOB RATIO 0.9 (1.1-1.8); ALBUMIN 2.2 g/dL (3.0-4.8); CALCIUM 7.1 mg/dL (8.4-10.5)
[2017-10-13] MEDS: Insulin Reg-MEDIUM-Coverage SC SCH ×4 (07:42→22:00)
--- NOTE | 2017-10-13 08:08 | CP.CCUPN ---
<Soto Moura - Last Filed: 10/13/17 14:24> CCU Subjective - Physician Review Subjective (Free Text): Patient seen and examined at bedside. Patient is extubated however ROS unobtainable due to patient's baseline AMS. CCU Objective - Vital Signs / Intake & Output Vital Signs (Last 4 hours): Vital Signs Pulse BP Pulse Ox 10/13/17 06:41 118/57 L 10/13/17 06:00 117 H 10/13/17 05:20 101 H 100 10/13/17 05:10 107 H 100 10/13/17 05:00 110 H 98/43 L 100 10/13/17 04:50 115 H 100 10/13/17 04:40 110 H 100 10/13/17 04:30 113 H 115/67 100 10/13/17 04:20 112 H 100 10/13/17 04:10 100 H 100 Intake and Output (Last 8hrs): Intake & Output 10/12/17 10/13/17 10/13/17 22:59 06:59 14:59 Intake Total 1750 Output Total 220 Balance 1530 Intake: IV 1450 Left Femoral 1250 Tube Feeding 300 Output: Urine 200 Urethral (Alexandre) 200 Stool 20 Emesis 0 - Physical Exam Head: Positive for: Atraumatic, Normocephalic Pupils: Positive for: Non-Reactive Extroacular Muscles: Positive for: EOMI Conjunctiva: Positive for: Normal Mouth: Positive for: Moist Mucous Membranes, Other (intubated, gag reflex intact ) Neck: Positive for: Normal Range of Motion Respiratory/Chest: Positive for: Good Air Exchange, Rales. Negative for: Respiratory Distress, Accessory Muscle Use, Wheezes Cardiovascular: Positive for: Regular Rate and Rhythm, Normal S1, S2. Negative for: Murmurs Abdomen: Negative for: Tenderness, Distention, Peritoneal Signs Upper Extremity: Positive for: Normal Inspection. Negative for: Cyanosis, Edema Lower Extremity: Positive for: Normal Inspection. Negative for: Edema Neurological: Negative for: CN II-XII Intact, Speech Normal, Normal Cerebellar Funct Skin: Negative for: Rashes Psychiatric: Negative for: Oriented x 3 (oriented x 2) - Medications Active Medications: Active Medications Generic Name Dose Route Start Last Admin Trade Name Freq PRN Reason Stop Dose Admin Albuterol/Ipratropium 3 ml 10/11/17 02:00 10/13/17 07:49 Duoneb 3 Mg/0.5 Mg (3 Ml) Ud IH 3 ml [id number] JONNY Administration Albuterol/Ipratropium 3 ml 10/10/17 23:20 Duoneb 3 Mg/0.5 Mg (3 Ml) Ud IH Q2H PRN Shortness of Breath Doxercalciferol 1 mcg 10/12/17 10:00 10/12/17 13:53 Hectorol IV 1 mcg DAILY JONNY Administration Famotidine 10 mg 10/12/17 12:00 10/12/17 13:48 Pepcid IVP 10 mg DAILY JONNY Administration Hydrocortisone Sodium Succinate 50 mg 10/12/17 22:00 10/12/17 21:43 Solu-Cortef IVP 50 mg Q12 JONNY Administration Vasopressin 20 units/ Dextrose 101 mls @ 9.09 mls/hr 10/11/17 07:30 10/13/17 06:41 IV 9.09 mls/hr .[id number] JONNY Administration Protocol 0.03 U/MIN Fentanyl Citrate 1,000 mcg in 100 mls @ 2 mls/hr 10/11/17 11:07 10/13/17 05: 08 Fentanyl Citrate/Sodium Chloride 1 Mg/100 Ml IV 20 mcg/hr .Q24H PRN 2 mls/hr TITRATE PER MD ORDER Administration Protocol 20 MCG/HR Doxycycline Hyclate 100 mg/ 100 mls @ 100 mls/hr 10/11/17 22:00 10/12/17 21: 43 Sodium Chloride IVPB 100 mls/hr Q12 JONNY Administration Protocol Insulin Human Regular 100 100 mls @ 4 mls/hr 10/12/17 07:55 10/12/17 23:06 units/ Sodium Chloride IV 4 units/hr .Q24H PRN 4 mls/hr TITRATE PER MD ORDER Administration Protocol 4 UNITS/HR Meropenem 500 mg/ Sodium 50 mls @ 100 mls/hr 10/12/17 10:00 10/12/17 09:35 Chloride IVPB 100 mls/hr DAILY JONNY Administration Protocol Sodium Chloride 1,000 mls @ 100 mls/hr 10/12/17 10:15 10/12/17 21:42 Sodium Chloride 0.45% IV 100 mls/hr .Q10H JONNY Administration Insulin Human Regular 0 units 04/25/18 22:00 10/13/17 07:42 Humulin R Med SC Not Given ACHS [facility] Protocol Mupirocin 0 gm 10/12/17 18:00 10/12/17 18:17 Bactroban Ointment NS 10/17/17 10:01 1 applic BID JONNY Administration - Patient Studies Lab Studies: Microbiology Studies 10/11/17 05:00 Blood Culture - Preliminary Blood NO GROWTH AFTER 48 HOURS 10/11/17 04:45 Blood Culture - Preliminary Blood NO GROWTH AFTER 48 HOURS 10/12/17 06:00 Gram Stain - Preliminary Trachasp 10/10/17 18:00 Urine Culture - Final Urine,Clean Catch 10-50,000 CFU/ML. MULTIPLE SPECIES. PROBABLE CONTAMINATION. 10/11/17 06:00 MRSA Culture (Admit) - Final Naris MRSA DETECTED Lab Studies 10/13/17 10/13/17 10/13/17 Range/Units 06:40 06:40 06:40 WBC 10.5 (4.5-11.0) 10^3/ul RBC 3.00 L (3.5-6.1) 10^6/uL Hgb 8.5 L (12.0-16.0) g/dL Hct 27.8 L (36.0-48.0) % MCV 92.7 (80.0-105.0) fl MCH 28.3 (25.0-35.0) pg MCHC 30.6 L (31.0-37.0) g/dl RDW 14.8 H (11.5-14.5) % Plt Count 36 L* (120.0-450.0) 10^3/uL MPV (7.0-11.0) fl Gran % 88.0 H (50.0-68.0) % Lymph % (Auto) 5.6 L (22.0-35.0) % Gordon % (Auto) 6.4 H (1.0-6.0) % Eos % (Auto) 0.0 L (1.5-5.0) % Baso % (Auto) 0.0 (0.0-3.0) % Gran # 9.28 H (1.4-6.5) Lymph # (Auto) 0.6 L (1.2-3.4) Gordon # (Auto) 0.7 H (0.1-0.6) Eos # (Auto) 0.0 (0.0-0.7) Baso # (Auto) 0.00 (0.0-2.0) K/mm3 PT 25.7 H (9.4-12.5) SECONDS INR 2.20 H (0.93-1.08) APTT 31.7 (25.1-36.5) Seconds pCO2 (35-45) mm/Hg pO2 (80-100) mm/Hg HCO3 (21-28) mmol/L ABG pH (7.35-7.45) ABG Total CO2 (22-28) mmol.L ABG O2 Saturation (95-98) % ABG Base Excess (-2.0-3.0) mmol/L ABG Potassium (3.6-5.2) mmol/L VBG pH (7.32-7.43) VBG pCO2 (40-60) VBG HCO3 (21-28) mmol/l VBG Total CO2 (22-28) mmol.L VBG O2 Sat (Calc) (40-65) % VBG Base Excess (0.0-2.0) mmol/L VBG Potassium (3.6-5.2) mmol/L Sodium 151 H (132-148) mmol/L Chloride 112 H (98-107) mmol/L Glucose (65-105) mg/dl Lactate (0.7-2.1) mmol/L Mechanical Rate FiO2 % Tidal Volume PEEP Potassium 5.0 (3.6-5.0) mmol/L Carbon Dioxide 24 (21-33) mmol/L Anion Gap 20 (10-20) BUN 87 H (7-21) mg/dL Creatinine 3.6 H (0.7-1.2) mg/dl Est GFR ( Amer) 15 Est GFR (Non-Af Amer) 12 POC Glucose (mg/dL) (65-110) mg/dL Random Glucose 196 H (70-110) mg/dL Calcium 7.1 L (8.4-10.5) mg/dL Total Bilirubin 0.9 (0.2-1.3) mg/dL AST 1458 H (14-36) U/L ALT 746 H (7-56) U/L Alkaline Phosphatase 96 (38-126) U/L Total Protein 4.8 L (5.8-8.3) g/dL Albumin 2.2 L (3.0-4.8) g/dL Globulin 2.5 gm/dL Albumin/Globulin Ratio 0.9 L (1.1-1.8) 25-OH Vitamin D Total (30.0-100.0) NG/ML PTH Intact Whole Molec (14-64) pg/mL Arterial Blood Potassium (3.6-5.2) mmol/L Venous Blood Potassium (3.6-5.2) mmol/L Urine Color (YELLOW) Urine Appearance (CLEAR) Urine pH (4.7-8.0) Ur Specific [place] (1.005-1.035) Urine Protein (<30 mg/dL) mg/dL Urine Glucose (UA) (NEGATIVE) mg/dL Urine Ketones (NEGATIVE) mg/dL Urine Blood (NEGATIVE) Urine Nitrate (NEGATIVE) Urine Bilirubin (NEGATIVE) Urine Urobilinogen (<1 E.U./dL) E.U./dL Ur Leukocyte Esterase (NEGATIVE) Niranjan/uL Urine RBC (0-2) /hpf Urine WBC (0-6) /hpf Ur Epithelial Cells (0-5) /hpf Urine Bacteria (NEG) Urine Other Blood Type Antibody Screen Crossmatch BBK History Checked 10/13/17 10/13/17 10/13/17 Range/Units 06:20 05:01 03:59 WBC (4.5-11.0) 10^3/ul RBC (3.5-6.1) 10^6/uL Hgb (12.0-16.0) g/dL Hct (36.0-48.0) % MCV (80.0-105.0) fl MCH (25.0-35.0) pg MCHC (31.0-37.0) g/dl RDW (11.5-14.5) % Plt Count (120.0-450.0) 10^3/uL MPV (7.0-11.0) fl Gran % (50.0-68.0) % Lymph % (Auto) (22.0-35.0) % Gordon % (Auto) (1.0-6.0) % Eos % (Auto) (1.5-5.0) % Baso % (Auto) (0.0-3.0) % Gran # (1.4-6.5) Lymph # (Auto) (1.2-3.4) Gordon # (Auto) (0.1-0.6) Eos # (Auto) (0.0-0.7) Baso # (Auto) (0.0-2.0) K/mm3 PT (9.4-12.5) SECONDS INR (0.93-1.08) APTT (25.1-36.5) Seconds pCO2 (35-45) mm/Hg pO2 165 H (80-100) mm/Hg HCO3 (21-28) mmol/L ABG pH (7.35-7.45) ABG Total CO2 (22-28) mmol.L ABG O2 Saturation (95-98) % ABG Base Excess (-2.0-3.0) mmol/L ABG Potassium (3.6-5.2) mmol/L VBG pH 7.37 (7.32-7.43) VBG pCO2 42.0 (40-60) VBG HCO3 24.3 (21-28) mmol/l VBG Total CO2 25.6 (22-28) mmol.L VBG O2 Sat (Calc) 99.3 H (40-65) % VBG Base Excess -1.1 L (0.0-2.0) mmol/L VBG Potassium 5.1 (3.6-5.2) mmol/L Sodium 146.0 (132-148) mmol/L Chloride 116.0 H (98-107) mmol/L Glucose 220 H (65-105) mg/dl Lactate 5.3 H* (0.7-2.1) mmol/L Mechanical Rate FiO2 21.0 % Tidal Volume PEEP Potassium (3.6-5.0) mmol/L Carbon Dioxide (21-33) mmol/L Anion Gap (10-20) BUN (7-21) mg/dL Creatinine (0.7-1.2) mg/dl Est GFR ( Amer) Est GFR (Non-Af Amer) POC Glucose (mg/dL) 129 H 125 H (65-110) mg/dL Random Glucose (70-110) mg/dL Calcium (8.4-10.5) mg/dL Total Bilirubin (0.2-1.3) mg/dL AST (14-36) U/L ALT (7-56) U/L Alkaline Phosphatase (38-126) U/L Total Protein (5.8-8.3) g/dL Albumin (3.0-4.8) g/dL Globulin gm/dL Albumin/Globulin Ratio (1.1-1.8) 25-OH Vitamin D Total (30.0-100.0) NG/ML PTH Intact Whole Molec (14-64) pg/mL Arterial Blood Potassium (3.6-5.2) mmol/L Venous Blood Potassium 5.1 (3.6-5.2) mmol/L Urine Color (YELLOW) Urine Appearance (CLEAR) Urine pH (4.7-8.0) Ur Specific [place] (1.005-1.035) Urine Protein (<30 mg/dL) mg/dL Urine Glucose (UA) (NEGATIVE) mg/dL Urine Ketones (NEGATIVE) mg/dL Urine Blood (NEGATIVE) Urine Nitrate (NEGATIVE) Urine Bilirubin (NEGATIVE) Urine Urobilinogen (<1 E.U./dL) E.U./dL Ur Leukocyte Esterase (NEGATIVE) Niranjan/uL Urine RBC (0-2) /hpf Urine WBC (0-6) /hpf Ur Epithelial Cells (0-5) /hpf Urine Bacteria (NEG) Urine Other Blood Type Antibody Screen Crossmatch BBK History Checked 10/13/17 10/13/17 10/13/17 Range/Units 03:19 01:36 00:06 WBC (4.5-11.0) 10^3/ul RBC (3.5-6.1) 10^6/uL Hgb (12.0-16.0) g/dL Hct (36.0-48.0) % MCV (80.0-105.0) fl MCH (25.0-35.0) pg MCHC (31.0-37.0) g/dl RDW (11.5-14.5) % Plt Count (120.0-450.0) 10^3/uL MPV (7.0-11.0) fl Gran % (50.0-68.0) % Lymph % (Auto) (22.0-35.0) % Gordon % (Auto) (1.0-6.0) % Eos % (Auto) (1.5-5.0) % Baso % (Auto) (0.0-3.0) % Gran # (1.4-6.5) Lymph # (Auto) (1.2-3.4) Gordon # (Auto) (0.1-0.6) Eos # (Auto) (0.0-0.7) Baso # (Auto) (0.0-2.0) K/mm3 PT (9.4-12.5) SECONDS INR (0.93-1.08) APTT (25.1-36.5) Seconds pCO2 (35-45) mm/Hg pO2 (80-100) mm/Hg HCO3 (21-28) mmol/L ABG pH (7.35-7.45) ABG Total CO2 (22-28) mmol.L ABG O2 Saturation (95-98) % ABG Base Excess (-2.0-3.0) mmol/L ABG Potassium (3.6-5.2) mmol/L VBG pH (7.32-7.43) VBG pCO2 (40-60) VBG HCO3 (21-28) mmol/l VBG Total CO2 (22-28) mmol.L VBG O2 Sat (Calc) (40-65) % VBG Base Excess (0.0-2.0) mmol/L VBG Potassium (3.6-5.2) mmol/L Sodium (132-148) mmol/L Chloride (98-107) mmol/L Glucose (65-105) mg/dl Lactate (0.7-2.1) mmol/L Mechanical Rate FiO2 % Tidal Volume PEEP Potassium (3.6-5.0) mmol/L Carbon Dioxide (21-33) mmol/L Anion Gap (10-20) BUN (7-21) mg/dL Creatinine (0.7-1.2) mg/dl Est GFR ( Amer) Est GFR (Non-Af Amer) POC Glucose (mg/dL) 111 H 73 45 L (65-110) mg/dL Random Glucose (70-110) mg/dL Calcium (8.4-10.5) mg/dL Total Bilirubin (0.2-1.3) mg/dL AST (14-36) U/L ALT (7-56) U/L Alkaline Phosphatase (38-126) U/L Total Protein (5.8-8.3) g/dL Albumin (3.0-4.8) g/dL Globulin gm/dL Albumin/Globulin Ratio (1.1-1.8) 25-OH Vitamin D Total (30.0-100.0) NG/ML PTH Intact Whole Molec (14-64) pg/mL Arterial Blood Potassium (3.6-5.2) mmol/L Venous Blood Potassium (3.6-5.2) mmol/L Urine Color (YELLOW) Urine Appearance (CLEAR) Urine pH (4.7-8.0) Ur Specific [place] (1.005-1.035) Urine Protein (<30 mg/dL) mg/dL Urine Glucose (UA) (NEGATIVE) mg/dL Urine Ketones (NEGATIVE) mg/dL Urine Blood (NEGATIVE) Urine Nitrate (NEGATIVE) Urine Bilirubin (NEGATIVE) Urine Urobilinogen (<1 E.U./dL) E.U./dL Ur Leukocyte Esterase (NEGATIVE) Niranjan/uL Urine RBC (0-2) /hpf Urine WBC (0-6) /hpf Ur Epithelial Cells (0-5) /hpf Urine Bacteria (NEG) Urine Other Blood Type Antibody Screen Crossmatch BBK History Checked 10/12/17 10/12/17 10/12/17 Range/Units 23:25 21:50 21:50 WBC 11.6 H (4.5-11.0) 10^3/ul RBC 3.00 L (3.5-6.1) 10^6/uL Hgb 8.4 L (12.0-16.0) g/dL Hct 27.7 L (36.0-48.0) % MCV 92.3 D (80.0-105.0) fl MCH 28.0 (25.0-35.0) pg MCHC 30.3 L (31.0-37.0) g/dl RDW 14.7 H (11.5-14.5) % Plt Count 35 L* (120.0-450.0) 10^3/uL MPV 11.5 H (7.0-11.0) fl Gran % 82.9 H (50.0-68.0) % Lymph % (Auto) 14.8 L (22.0-35.0) % Gordon % (Auto) 2.2 (1.0-6.0) % Eos % (Auto) 0.1 L (1.5-5.0) % Baso % (Auto) 0.0 (0.0-3.0) % Gran # 9.60 H (1.4-6.5) Lymph # (Auto) 1.7 (1.2-3.4) Gordon # (Auto) 0.3 (0.1-0.6) Eos # (Auto) 0.0 (0.0-0.7) Baso # (Auto) 0.00 (0.0-2.0) K/mm3 PT (9.4-12.5) SECONDS INR (0.93-1.08) APTT (25.1-36.5) Seconds pCO2 (35-45) mm/Hg pO2 197 H (80-100) mm/Hg HCO3 (21-28) mmol/L ABG pH (7.35-7.45) ABG Total CO2 (22-28) mmol.L ABG O2 Saturation (95-98) % ABG Base Excess (-2.0-3.0) mmol/L ABG Potassium (3.6-5.2) mmol/L VBG pH 7.36 (7.32-7.43) VBG pCO2 55.0 (40-60) VBG HCO3 31.1 H (21-28) mmol/l VBG Total CO2 32.8 H (22-28) mmol.L VBG O2 Sat (Calc) 99.3 H (40-65) % VBG Base Excess 4.2 H (0.0-2.0) mmol/L VBG Potassium 4.2 (3.6-5.2) mmol/L Sodium 153.0 H (132-148) mmol/L Chloride 120.0 H (98-107) mmol/L Glucose 77 (65-105) mg/dl Lactate 3.2 H (0.7-2.1) mmol/L Mechanical Rate FiO2 21.0 % Tidal Volume PEEP Potassium (3.6-5.0) mmol/L Carbon Dioxide (21-33) mmol/L Anion Gap (10-20) BUN (7-21) mg/dL Creatinine (0.7-1.2) mg/dl Est GFR ( Amer) Est GFR (Non-Af Amer) POC Glucose (mg/dL) (65-110) mg/dL Random Glucose (70-110) mg/dL Calcium (8.4-10.5) mg/dL Total Bilirubin (0.2-1.3) mg/dL AST (14-36) U/L ALT (7-56) U/L Alkaline Phosphatase (38-126) U/L Total Protein (5.8-8.3) g/dL Albumin (3.0-4.8) g/dL Globulin gm/dL Albumin/Globulin Ratio (1.1-1.8) 25-OH Vitamin D Total (30.0-100.0) NG/ML PTH Intact Whole Molec (14-64) pg/mL Arterial Blood Potassium (3.6-5.2) mmol/L Venous Blood Potassium 4.2 (3.6-5.2) mmol/L Urine Color Dark yellow (YELLOW) Urine Appearance Cloudy (CLEAR) Urine pH 7.0 (4.7-8.0) Ur Specific [place] 1.020 (1.005-1.035) Urine Protein 100 H (<30 mg/dL) mg/dL Urine Glucose (UA) Negative (NEGATIVE) mg/dL Urine Ketones Negative (NEGATIVE) mg/dL Urine Blood Large H (NEGATIVE) Urine Nitrate Negative (NEGATIVE) Urine Bilirubin Negative (NEGATIVE) Urine Urobilinogen 0.2 (<1 E.U./dL) E.U./dL Ur Leukocyte Esterase Moderate H (NEGATIVE) Niranjan/uL Urine RBC Tntc (0-2) /hpf Urine WBC 2 - 5 (0-6) /hpf Ur Epithelial Cells 6 - 8 (0-5) /hpf Urine Bacteria Many (NEG) Urine Other Mucus Blood Type Antibody Screen Crossmatch BBK History Checked 10/12/17 10/12/17 10/12/17 Range/Units 21:50 19:41 17:15 WBC (4.5-11.0) 10^3/ul RBC (3.5-6.1) 10^6/uL Hgb (12.0-16.0) g/dL Hct (36.0-48.0) % MCV (80.0-105.0) fl MCH (25.0-35.0) pg MCHC (31.0-37.0) g/dl RDW (11.5-14.5) % Plt Count (120.0-450.0) 10^3/uL MPV (7.0-11.0) fl Gran % (50.0-68.0) % Lymph % (Auto) (22.0-35.0) % Gordon % (Auto) (1.0-6.0) % Eos % (Auto) (1.5-5.0) % Baso % (Auto) (0.0-3.0) % Gran # (1.4-6.5) Lymph # (Auto) (1.2-3.4) Gordon # (Auto) (0.1-0.6) Eos # (Auto) (0.0-0.7) Baso # (Auto) (0.0-2.0) K/mm3 PT (9.4-12.5) SECONDS INR (0.93-1.08) APTT (25.1-36.5) Seconds pCO2 (35-45) mm/Hg pO2 54 (80-100) mm/Hg HCO3 (21-28) mmol/L ABG pH (7.35-7.45) ABG Total CO2 (22-28) mmol.L ABG O2 Saturation (95-98) % ABG Base Excess (-2.0-3.0) mmol/L ABG Potassium (3.6-5.2) mmol/L VBG pH 7.30 L (7.32-7.43) VBG pCO2 56.0 (40-60) VBG HCO3 27.6 (21-28) mmol/l VBG Total CO2 29.3 H (22-28) mmol.L VBG O2 Sat (Calc) 90.6 H (40-65) % VBG Base Excess 0.1 (0.0-2.0) mmol/L VBG Potassium 4.4 (3.6-5.2) mmol/L Sodium 153 H 156.0 H (132-148) mmol/L Chloride 115 H 123.0 H (98-107) mmol/L Glucose 159 H (65-105) mg/dl Lactate 7.0 H* (0.7-2.1) mmol/L Mechanical Rate FiO2 21.0 % Tidal Volume PEEP Potassium 4.2 (3.6-5.0) mmol/L Carbon Dioxide 32 (21-33) mmol/L Anion Gap 11 (10-20) BUN 88 H (7-21) mg/dL Creatinine 3.3 H (0.7-1.2) mg/dl Est GFR ( Amer) 16 Est GFR (Non-Af Amer) 14 POC Glucose (mg/dL) 82 (65-110) mg/dL Random Glucose 73 (70-110) mg/dL Calcium 6.8 L* (8.4-10.5) mg/dL Total Bilirubin 0.8 (0.2-1.3) mg/dL AST 1482 H (14-36) U/L ALT 693 H (7-56) U/L Alkaline Phosphatase 83 (38-126) U/L Total Protein 4.6 L (5.8-8.3) g/dL Albumin 2.1 L (3.0-4.8) g/dL Globulin 2.5 gm/dL Albumin/Globulin Ratio 0.8 L (1.1-1.8) 25-OH Vitamin D Total (30.0-100.0) NG/ML PTH Intact Whole Molec (14-64) pg/mL Arterial Blood Potassium (3.6-5.2) mmol/L Venous Blood Potassium 4.4 (3.6-5.2) mmol/L Urine Color (YELLOW) Urine Appearance (CLEAR) Urine pH (4.7-8.0) Ur Specific [place] (1.005-1.035) Urine Protein (<30 mg/dL) mg/dL Urine Glucose (UA) (NEGATIVE) mg/dL Urine Ketones (NEGATIVE) mg/dL Urine Blood (NEGATIVE) Urine Nitrate (NEGATIVE) Urine Bilirubin (NEGATIVE) Urine Urobilinogen (<1 E.U./dL) E.U./dL Ur Leukocyte Esterase (NEGATIVE) Niranjan/uL Urine RBC (0-2) /hpf Urine WBC (0-6) /hpf Ur Epithelial Cells (0-5) /hpf Urine Bacteria (NEG) Urine Other Blood Type Antibody Screen Crossmatch BBK History Checked 10/12/17 10/12/17 10/12/17 Range/Units 16:09 15:00 12:01 WBC (4.5-11.0) 10^3/ul RBC (3.5-6.1) 10^6/uL Hgb (12.0-16.0) g/dL Hct (36.0-48.0) % MCV (80.0-105.0) fl MCH (25.0-35.0) pg MCHC (31.0-37.0) g/dl RDW (11.5-14.5) % Plt Count (120.0-450.0) 10^3/uL MPV (7.0-11.0) fl Gran % (50.0-68.0) % Lymph % (Auto) (22.0-35.0) % [place] % (Auto) (1.0-6.0) % Eos % (Auto) (1.5-5.0) % Baso % (Auto) (0.0-3.0) % Gran # (1.4-6.5) Lymph # (Auto) (1.2-3.4) [place] # (Auto) (0.1-0.6) Eos # (Auto) (0.0-0.7) Baso # (Auto) (0.0-2.0) K/mm3 PT (9.4-12.5) SECONDS INR (0.93-1.08) APTT (25.1-36.5) Seconds pCO2 (35-45) mm/Hg pO2 (80-100) mm/Hg HCO3 (21-28) mmol/L ABG pH (7.35-7.45) ABG Total CO2 (22-28) mmol.L ABG O2 Saturation (95-98) % ABG Base Excess (-2.0-3.0) mmol/L ABG Potassium (3.6-5.2) mmol/L VBG pH (7.32-7.43) VBG pCO2 (40-60) VBG HCO3 (21-28) mmol/l VBG Total CO2 (22-28) mmol.L VBG O2 Sat (Calc) (40-65) % VBG Base Excess (0.0-2.0) mmol/L VBG Potassium (3.6-5.2) mmol/L Sodium (132-148) mmol/L Chloride (98-107) mmol/L Glucose (65-105) mg/dl Lactate (0.7-2.1) mmol/L Mechanical Rate FiO2 % Tidal Volume PEEP Potassium (3.6-5.0) mmol/L Carbon Dioxide (21-33) mmol/L Anion Gap (10-20) BUN (7-21) mg/dL Creatinine (0.7-1.2) mg/dl Est GFR ( Amer) Est GFR (Non-Af Amer) POC Glucose (mg/dL) 198 H 301 H (65-110) mg/dL Random Glucose (70-110) mg/dL Calcium (8.4-10.5) mg/dL Total Bilirubin (0.2-1.3) mg/dL AST (14-36) U/L ALT (7-56) U/L Alkaline Phosphatase (38-126) U/L Total Protein (5.8-8.3) g/dL Albumin (3.0-4.8) g/dL Globulin gm/dL Albumin/Globulin Ratio (1.1-1.8) 25-OH Vitamin D Total (30.0-100.0) NG/ML PTH Intact Whole [place]olec (14-64) pg/mL Arterial Blood Potassium (3.6-5.2) mmol/L Venous Blood Potassium (3.6-5.2) mmol/L Urine Color (YELLOW) Urine Appearance (CLEAR) Urine pH (4.7-8.0) Ur Specific [place] (1.005-1.035) Urine Protein (<30 mg/dL) mg/dL Urine Glucose (UA) (NEGATIVE) mg/dL Urine Ketones (NEGATIVE) mg/dL Urine Blood (NEGATIVE) Urine Nitrate (NEGATIVE) Urine Bilirubin (NEGATIVE) Urine Urobilinogen (<1 E.U./dL) E.U./dL Ur Leukocyte Esterase (NEGATIVE) Niranjan/uL Urine RBC (0-2) /hpf Urine WBC (0-6) /hpf Ur Epithelial Cells (0-5) /hpf Urine Bacteria (NEG) Urine Other Blood Type O POSITIVE Antibody Screen Negative Crossmatch See Detail BBK History Checked Patient has bt 10/12/17 10/12/17 10/12/17 Range/Units 12:01 11:57 08:30 WBC 14.4 H (4.5-11.0) 10^3/ul RBC 3.13 L (3.5-6.1) 10^6/uL Hgb 8.9 L (12.0-16.0) g/dL Hct 29.9 L (36.0-48.0) % MCV 95.5 (80.0-105.0) fl MCH 28.4 (25.0-35.0) pg MCHC 29.8 L (31.0-37.0) g/dl RDW 14.9 H (11.5-14.5) % Plt Count 24 L* (120.0-450.0) 10^3/uL MPV (7.0-11.0) fl Gran % 85.7 H (50.0-68.0) % Lymph % (Auto) 12.9 L (22.0-35.0) % Gordon % (Auto) 1.2 (1.0-6.0) % Eos % (Auto) 0.1 L (1.5-5.0) % Baso % (Auto) 0.1 (0.0-3.0) % Gran # 12.33 H (1.4-6.5) Lymph # (Auto) 1.9 (1.2-3.4) Gordon # (Auto) 0.2 (0.1-0.6) Eos # (Auto) 0.0 (0.0-0.7) Baso # (Auto) 0.01 (0.0-2.0) K/mm3 PT (9.4-12.5) SECONDS INR (0.93-1.08) APTT (25.1-36.5) Seconds pCO2 29 L (35-45) mm/Hg pO2 53 58.0 L (80-100) mm/Hg HCO3 19.2 L (21-28) mmol/L ABG pH 7.43 (7.35-7.45) ABG Total CO2 20.1 L (22-28) mmol.L ABG O2 Saturation 95.2 (95-98) % ABG Base Excess -3.9 L (-2.0-3.0) mmol/L ABG Potassium 4.7 (3.6-5.2) mmol/L VBG pH 7.28 L (7.32-7.43) VBG pCO2 50.0 (40-60) VBG HCO3 23.5 (21-28) mmol/l VBG Total CO2 25.0 (22-28) mmol.L VBG O2 Sat (Calc) 90.0 H (40-65) % VBG Base Excess -3.7 L (0.0-2.0) mmol/L VBG Potassium 5.2 (3.6-5.2) mmol/L Sodium 156.0 H 153.0 H (132-148) mmol/L Chloride 119.0 H 124.0 H (98-107) mmol/L Glucose 526 H* 510 H* (65-105) mg/dl Lactate 11.2 H* 11.2 H* (0.7-2.1) mmol/L Mechanical Rate 16 FiO2 21.0 60.0 % Tidal Volume 350 PEEP 5 Potassium (3.6-5.0) mmol/L Carbon Dioxide (21-33) mmol/L Anion Gap (10-20) BUN (7-21) mg/dL Creatinine (0.7-1.2) mg/dl Est GFR ( Amer) Est GFR (Non-Af Amer) POC Glucose (mg/dL) (65-110) mg/dL Random Glucose (70-110) mg/dL Calcium (8.4-10.5) mg/dL Total Bilirubin (0.2-1.3) mg/dL AST (14-36) U/L ALT (7-56) U/L Alkaline Phosphatase (38-126) U/L Total Protein (5.8-8.3) g/dL Albumin (3.0-4.8) g/dL Globulin gm/dL Albumin/Globulin Ratio (1.1-1.8) 25-OH Vitamin D Total (30.0-100.0) NG/ML PTH Intact Whole Molec (14-64) pg/mL Arterial Blood Potassium 4.7 (3.6-5.2) mmol/L Venous Blood Potassium 5.2 (3.6-5.2) mmol/L Urine Color (YELLOW) Urine Appearance (CLEAR) Urine pH (4.7-8.0) Ur Specific [place] (1.005-1.035) Urine Protein (<30 mg/dL) mg/dL Urine Glucose (UA) (NEGATIVE) mg/dL Urine Ketones (NEGATIVE) mg/dL Urine Blood (NEGATIVE) Urine Nitrate (NEGATIVE) Urine Bilirubin (NEGATIVE) Urine Urobilinogen (<1 E.U./dL) E.U./dL Ur Leukocyte Esterase (NEGATIVE) Niranjan/uL Urine RBC (0-2) /hpf Urine WBC (0-6) /hpf Ur Epithelial Cells (0-5) /hpf Urine Bacteria (NEG) Urine Other Blood Type Antibody Screen Crossmatch BBK History Checked 10/12/17 10/11/17 10/11/17 Range/Units 07:45 20:30 20:30 WBC (4.5-11.0) 10^3/ul RBC (3.5-6.1) 10^6/uL Hgb (12.0-16.0) g/dL Hct (36.0-48.0) % MCV (80.0-105.0) fl MCH (25.0-35.0) pg MCHC (31.0-37.0) g/dl RDW (11.5-14.5) % Plt Count (120.0-450.0) 10^3/uL MPV (7.0-11.0) fl Gran % (50.0-68.0) % Lymph % (Auto) (22.0-35.0) % Gordon % (Auto) (1.0-6.0) % Eos % (Auto) (1.5-5.0) % Baso % (Auto) (0.0-3.0) % Gran # (1.4-6.5) Lymph # (Auto) (1.2-3.4) Gordon # (Auto) (0.1-0.6) Eos # (Auto) (0.0-0.7) Baso # (Auto) (0.0-2.0) K/mm3 PT (9.4-12.5) SECONDS INR (0.93-1.08) APTT (25.1-36.5) Seconds pCO2 (35-45) mm/Hg pO2 (80-100) mm/Hg HCO3 (21-28) mmol/L ABG pH (7.35-7.45) ABG Total CO2 (22-28) mmol.L ABG O2 Saturation (95-98) % ABG Base Excess (-2.0-3.0) mmol/L ABG Potassium (3.6-5.2) mmol/L VBG pH (7.32-7.43) VBG pCO2 (40-60) VBG HCO3 (21-28) mmol/l VBG Total CO2 (22-28) mmol.L VBG O2 Sat (Calc) (40-65) % VBG Base Excess (0.0-2.0) mmol/L VBG Potassium (3.6-5.2) mmol/L Sodium (132-148) mmol/L Chloride (98-107) mmol/L Glucose (65-105) mg/dl Lactate (0.7-2.1) mmol/L Mechanical Rate FiO2 % Tidal Volume PEEP Potassium (3.6-5.0) mmol/L Carbon Dioxide (21-33) mmol/L Anion Gap (10-20) BUN (7-21) mg/dL Creatinine (0.7-1.2) mg/dl Est GFR ( Amer) Est GFR (Non-Af Amer) POC Glucose (mg/dL) 446 H* (65-110) mg/dL Random Glucose (70-110) mg/dL Calcium (8.4-10.5) mg/dL Total Bilirubin (0.2-1.3) mg/dL AST (14-36) U/L ALT (7-56) U/L Alkaline Phosphatase (38-126) U/L Total Protein (5.8-8.3) g/dL Albumin (3.0-4.8) g/dL Globulin gm/dL Albumin/Globulin Ratio (1.1-1.8) 25-OH Vitamin D Total 46.3 (30.0-100.0) NG/ML PTH Intact Whole [place] 512 H (14-64) pg/mL Arterial Blood Potassium (3.6-5.2) mmol/L Venous Blood Potassium (3.6-5.2) mmol/L Urine Color (YELLOW) Urine Appearance (CLEAR) Urine pH (4.7-8.0) Ur Specific [place] (1.005-1.035) Urine Protein (<30 mg/dL) mg/dL Urine Glucose (UA) (NEGATIVE) mg/dL Urine Ketones (NEGATIVE) mg/dL Urine Blood (NEGATIVE) Urine Nitrate (NEGATIVE) Urine Bilirubin (NEGATIVE) Urine Urobilinogen (<1 E.U./dL) E.U./dL Ur Leukocyte Esterase (NEGATIVE) Niranjan/uL Urine RBC (0-2) /hpf Urine WBC (0-6) /hpf Ur Epithelial Cells (0-5) /hpf Urine Bacteria (NEG) Urine Other Blood Type Antibody Screen Crossmatch BBK History Checked Laboratory Results - last 24 hr 10/11/17 10/11/17 10/12/17 20:30 20:30 07:45 WBC RBC Hgb Hct MCV MCH MCHC RDW Plt Count MPV Gran % Lymph % (Auto) [place] % (Auto) Eos % (Auto) Baso % (Auto) Gran # Lymph # (Auto) [place] # (Auto) Eos # (Auto) Baso # (Auto) PT INR APTT pCO2 pO2 HCO3 ABG pH ABG Total CO2 ABG O2 Saturation ABG Base Excess ABG Potassium VBG pH VBG pCO2 VBG HCO3 VBG Total CO2 VBG O2 Sat (Calc) VBG Base Excess VBG Potassium Sodium Chloride Glucose Lactate Mechanical Rate FiO2 Tidal Volume PEEP Potassium Carbon Dioxide Anion Gap BUN Creatinine Est GFR ( Amer) Est GFR (Non-Af Amer) POC Glucose (mg/dL) 446 H* Random Glucose Calcium Total Bilirubin AST ALT Alkaline Phosphatase Total Protein Albumin Globulin Albumin/Globulin Ratio 25-OH Vitamin D Total 46.3 PTH Intact Whole Molec 512 H Arterial Blood Potassium Venous Blood Potassium Urine Color Urine Appearance Urine pH Ur Specific [place] Urine Protein Urine Glucose (UA) Urine Ketones Urine Blood Urine Nitrate Urine Bilirubin Urine Urobilinogen Ur Leukocyte Esterase Urine RBC Urine WBC Ur Epithelial Cells Urine Bacteria Urine Other Blood Type Antibody Screen Crossmatch BBK History Checked 10/12/17 10/12/17 10/12/17 08:30 11:57 12:01 WBC 14.4 H RBC 3.13 L Hgb 8.9 L Hct 29.9 L MCV 95.5 MCH 28.4 MCHC 29.8 L RDW 14.9 H Plt Count 24 L* MPV Gran % 85.7 H Lymph % (Auto) 12.9 L Gordon % (Auto) 1.2 Eos % (Auto) 0.1 L Baso % (Auto) 0.1 Gran # 12.33 H Lymph # (Auto) 1.9 Gordon # (Auto) 0.2 Eos # (Auto) 0.0 Baso # (Auto) 0.01 PT INR APTT pCO2 29 L pO2 58.0 L 53 HCO3 19.2 L ABG pH 7.43 ABG Total CO2 20.1 L ABG O2 Saturation 95.2 ABG Base Excess -3.9 L ABG Potassium 4.7 VBG pH 7.28 L VBG pCO2 50.0 VBG HCO3 23.5 VBG Total CO2 25.0 VBG O2 Sat (Calc) 90.0 H VBG Base Excess -3.7 L VBG Potassium 5.2 Sodium 153.0 H 156.0 H Chloride 124.0 H 119.0 H Glucose 510 H* 526 H* Lactate 11.2 H* 11.2 H* Mechanical Rate 16 FiO2 60.0 21.0 Tidal Volume 350 PEEP 5 Potassium Carbon Dioxide Anion Gap BUN Creatinine Est GFR ( Amer) Est GFR (Non-Af Amer) POC Glucose (mg/dL) Random Glucose Calcium Total Bilirubin AST ALT Alkaline Phosphatase Total Protein Albumin Globulin Albumin/Globulin Ratio 25-OH Vitamin D Total PTH Intact Whole Molec Arterial Blood Potassium 4.7 Venous Blood Potassium 5.2 Urine Color Urine Appearance Urine pH Ur Specific [place] Urine Protein Urine Glucose (UA) Urine Ketones Urine Blood Urine Nitrate Urine Bilirubin Urine Urobilinogen Ur Leukocyte Esterase Urine RBC Urine WBC Ur Epithelial Cells Urine Bacteria Urine Other Blood Type Antibody Screen Crossmatch BBK History Checked 10/12/17 10/12/17 10/12/17 12:01 15:00 16:09 WBC RBC Hgb Hct MCV MCH MCHC RDW Plt Count MPV Gran % Lymph % (Auto) Gordon % (Auto) Eos % (Auto) Baso % (Auto) Gran # Lymph # (Auto) Gordon # (Auto) Eos # (Auto) Baso # (Auto) PT INR APTT pCO2 pO2 HCO3 ABG pH ABG Total CO2 ABG O2 Saturation ABG Base Excess ABG Potassium VBG pH VBG pCO2 VBG HCO3 VBG Total CO2 VBG O2 Sat (Calc) VBG Base Excess VBG Potassium Sodium Chloride Glucose Lactate Mechanical Rate FiO2 Tidal Volume PEEP Potassium Carbon Dioxide Anion Gap BUN Creatinine Est GFR ( Amer) Est GFR (Non-Af Amer) POC Glucose (mg/dL) 301 H 198 H Random Glucose Calcium Total Bilirubin AST ALT Alkaline Phosphatase Total Protein Albumin Globulin Albumin/Globulin Ratio 25-OH Vitamin D Total PTH Intact Whole Molec Arterial Blood Potassium Venous Blood Potassium Urine Color Urine Appearance Urine pH Ur Specific [place] Urine Protein Urine Glucose (UA) Urine Ketones Urine Blood Urine Nitrate Urine Bilirubin Urine Urobilinogen Ur Leukocyte Esterase Urine RBC Urine WBC Ur Epithelial Cells Urine Bacteria Urine Other Blood Type O POSITIVE Antibody Screen Negative Crossmatch See Detail BBK History Checked Patient has bt 10/12/17 10/12/17 10/12/17 17:15 19:41 21:50 WBC RBC Hgb Hct MCV MCH MCHC RDW Plt Count MPV Gran % Lymph % (Auto) Gordon % (Auto) Eos % (Auto) Baso % (Auto) Gran # Lymph # (Auto) Gordon # (Auto) Eos # (Auto) Baso # (Auto) PT INR APTT pCO2 pO2 54 HCO3 ABG pH ABG Total CO2 ABG O2 Saturation ABG Base Excess ABG Potassium VBG pH 7.30 L VBG pCO2 56.0 VBG HCO3 27.6 VBG Total CO2 29.3 H VBG O2 Sat (Calc) 90.6 H VBG Base Excess 0.1 VBG Potassium 4.4 Sodium 156.0 H 153 H Chloride 123.0 H 115 H Glucose 159 H Lactate 7.0 H* Mechanical Rate FiO2 21.0 Tidal Volume PEEP Potassium 4.2 Carbon Dioxide 32 Anion Gap 11 BUN 88 H Creatinine 3.3 H Est GFR ( Amer) 16 Est GFR (Non-Af Amer) 14 POC Glucose (mg/dL) 82 Random Glucose 73 Calcium 6.8 L* Total Bilirubin 0.8 AST 1482 H ALT 693 H Alkaline Phosphatase 83 Total Protein 4.6 L Albumin 2.1 L Globulin 2.5 Albumin/Globulin Ratio 0.8 L 25-OH Vitamin D Total PTH Intact Whole Molec Arterial Blood Potassium Venous Blood Potassium 4.4 Urine Color Urine Appearance Urine pH Ur Specific [place] Urine Protein Urine Glucose (UA) Urine Ketones Urine Blood Urine Nitrate Urine Bilirubin Urine Urobilinogen Ur Leukocyte Esterase Urine RBC Urine WBC Ur Epithelial Cells Urine Bacteria Urine Other Blood Type Antibody Screen Crossmatch BBK History Checked 10/12/17 10/12/17 10/12/17 21:50 21:50 23:25 WBC 11.6 H RBC 3.00 L Hgb 8.4 L Hct 27.7 L MCV 92.3 D MCH 28.0 MCHC 30.3 L RDW 14.7 H Plt Count 35 L* MPV 11.5 H Gran % 82.9 H Lymph % (Auto) 14.8 L Gordon % (Auto) 2.2 Eos % (Auto) 0.1 L Baso % (Auto) 0.0 Gran # 9.60 H Lymph # (Auto) 1.7 Gordon # (Auto) 0.3 Eos # (Auto) 0.0 Baso # (Auto) 0.00 PT INR APTT pCO2 pO2 197 H HCO3 ABG pH ABG Total CO2 ABG O2 Saturation ABG Base Excess ABG Potassium VBG pH 7.36 VBG pCO2 55.0 VBG HCO3 31.1 H VBG Total CO2 32.8 H VBG O2 Sat (Calc) 99.3 H VBG Base Excess 4.2 H VBG Potassium 4.2 Sodium 153.0 H Chloride 120.0 H Glucose 77 Lactate 3.2 H Mechanical Rate FiO2 21.0 Tidal Volume PEEP Potassium Carbon Dioxide Anion Gap BUN Creatinine Est GFR ( Amer) Est GFR (Non-Af Amer) POC Glucose (mg/dL) Random Glucose Calcium Total Bilirubin AST ALT Alkaline Phosphatase Total Protein Albumin Globulin Albumin/Globulin Ratio 25-OH Vitamin D Total PTH Intact Whole Molec Arterial Blood Potassium Venous Blood Potassium 4.2 Urine Color Dark yellow Urine Appearance Cloudy Urine pH 7.0 Ur Specific [place] 1.020 Urine Protein 100 H Urine Glucose (UA) Negative Urine Ketones Negative Urine Blood Large H Urine Nitrate Negative Urine Bilirubin Negative Urine Urobilinogen 0.2 Ur Leukocyte Esterase Moderate H Urine RBC Tntc Urine WBC 2 - 5 Ur Epithelial Cells 6 - 8 Urine Bacteria Many Urine Other Mucus Blood Type Antibody Screen Crossmatch BBK History Checked 10/13/17 10/13/17 10/13/17 00:06 01:36 03:19 WBC RBC Hgb Hct MCV MCH MCHC RDW Plt Count MPV Gran % Lymph % (Auto) Gordon % (Auto) Eos % (Auto) Baso % (Auto) Gran # Lymph # (Auto) Gordon # (Auto) Eos # (Auto) Baso # (Auto) PT INR APTT pCO2 pO2 HCO3 ABG pH ABG Total CO2 ABG O2 Saturation ABG Base Excess ABG Potassium VBG pH VBG pCO2 VBG HCO3 VBG Total CO2 VBG O2 Sat (Calc) VBG Base Excess VBG Potassium Sodium Chloride Glucose Lactate Mechanical Rate FiO2 Tidal Volume PEEP Potassium Carbon Dioxide Anion Gap BUN Creatinine Est GFR ( Amer) Est GFR (Non-Af Amer) POC Glucose (mg/dL) 45 L 73 111 H Random Glucose Calcium Total Bilirubin AST ALT Alkaline Phosphatase Total Protein Albumin Globulin Albumin/Globulin Ratio 25-OH Vitamin D Total PTH Intact Whole Molec Arterial Blood Potassium Venous Blood Potassium Urine Color Urine Appearance Urine pH Ur Specific [place] Urine Protein Urine Glucose (UA) Urine Ketones Urine Blood Urine Nitrate Urine Bilirubin Urine Urobilinogen Ur Leukocyte Esterase Urine RBC Urine WBC Ur Epithelial Cells Urine Bacteria Urine Other Blood Type Antibody Screen Crossmatch BBK History Checked 10/13/17 10/13/17 10/13/17 03:59 05:01 06:20 WBC RBC Hgb Hct MCV MCH MCHC RDW Plt Count MPV Gran % Lymph % (Auto) Gordon % (Auto) Eos % (Auto) Baso % (Auto) Gran # Lymph # (Auto) Gordon # (Auto) Eos # (Auto) Baso # (Auto) PT INR APTT pCO2 pO2 165 H HCO3 ABG pH ABG Total CO2 ABG O2 Saturation ABG Base Excess ABG Potassium VBG pH 7.37 VBG pCO2 42.0 VBG HCO3 24.3 VBG Total CO2 25.6 VBG O2 Sat (Calc) 99.3 H VBG Base Excess -1.1 L VBG Potassium 5.1 Sodium 146.0 Chloride 116.0 H Glucose 220 H Lactate 5.3 H* Mechanical Rate FiO2 21.0 Tidal Volume PEEP Potassium Carbon Dioxide Anion Gap BUN Creatinine Est GFR ( Amer) Est GFR (Non-Af Amer) POC Glucose (mg/dL) 125 H 129 H Random Glucose Calcium Total Bilirubin AST ALT Alkaline Phosphatase Total Protein Albumin Globulin Albumin/Globulin Ratio 25-OH Vitamin D Total PTH Intact Whole Molec Arterial Blood Potassium Venous Blood Potassium 5.1 Urine Color Urine Appearance Urine pH Ur Specific [place] Urine Protein Urine Glucose (UA) Urine Ketones Urine Blood Urine Nitrate Urine Bilirubin Urine Urobilinogen Ur Leukocyte Esterase Urine RBC Urine WBC Ur Epithelial Cells Urine Bacteria Urine Other Blood Type Antibody Screen Crossmatch BBK History Checked 10/13/17 10/13/17 10/13/17 06:40 06:40 06:40 WBC 10.5 RBC 3.00 L Hgb 8.5 L Hct 27.8 L MCV 92.7 MCH 28.3 MCHC 30.6 L RDW 14.8 H Plt Count 36 L* MPV Gran % 88.0 H Lymph % (Auto) 5.6 L Gordon % (Auto) 6.4 H Eos % (Auto) 0.0 L Baso % (Auto) 0.0 Gran # 9.28 H Lymph # (Auto) 0.6 L Gordon # (Auto) 0.7 H Eos # (Auto) 0.0 Baso # (Auto) 0.00 PT 25.7 H INR 2.20 H APTT 31.7 pCO2 pO2 HCO3 ABG pH ABG Total CO2 ABG O2 Saturation ABG Base Excess ABG Potassium VBG pH VBG pCO2 VBG HCO3 VBG Total CO2 VBG O2 Sat (Calc) VBG Base Excess VBG Potassium Sodium 151 H Chloride 112 H Glucose Lactate Mechanical Rate FiO2 Tidal Volume PEEP Potassium 5.0 Carbon Dioxide 24 Anion Gap 20 BUN 87 H Creatinine 3.6 H Est GFR ( Amer) 15 Est GFR (Non-Af Amer) 12 POC Glucose (mg/dL) Random Glucose 196 H Calcium 7.1 L Total Bilirubin 0.9 AST 1458 H ALT 746 H Alkaline Phosphatase 96 Total Protein 4.8 L Albumin 2.2 L Globulin 2.5 Albumin/Globulin Ratio 0.9 L 25-OH Vitamin D Total PTH Intact Whole Molec Arterial Blood Potassium Venous Blood Potassium Urine Color Urine Appearance Urine pH Ur Specific [place] Urine Protein Urine Glucose (UA) Urine Ketones Urine Blood Urine Nitrate Urine Bilirubin Urine Urobilinogen Ur Leukocyte Esterase Urine RBC Urine WBC Ur Epithelial Cells Urine Bacteria Urine Other Blood Type Antibody Screen Crossmatch BBK History Checked Fingerstick Blood Sugar Results: 129 Review of Systems - Review of Systems Systems not reviewed;Unavailable: Altered Mental Status Assessment/Plan - Assessment and Plan (Free Text) Assessment: 77 F with past medical history of HTN, dementia, S/P right hip replacement presents from [facility] ([facility] surgery) for AMS and lethargy s/p cardiac arrrest found to be in Hyperglycemic Hyperosmolar Nonketotic Coma (HONK), Hypernatremic, and septic shock secondary to HCAP. Neuro: -Baseline severe dementia -Continue with Neuro checks CV: -Maintain MAP > 65 -Continue to hold HTN medications -Patient currently on solu-cortef Pulm: -Maintain SPO2 > 90 % -Patient is now extubated, recent ABG shows pH 7.38, pCO2 35, pO2 59, HCO3 20.7 -Follow up with repeat ABG -Continue with duonebs GI: -OG tube in place -Acute hep panel reveals reactivity for Hepatitis C -Continue to hold protonix drip as patient still has thrombocytopenia Renal: -Monitor I&O -Monitor and replete electrolytes as needed -Continue with free water flushes -Hypernatremia; 1/2NS@100, free water flushes ID: -Procal [id number] -ID consulted for recs -Monitor lactate -Continue with Merrem and doxycycline as per ID for HCAP -Follow up pancultures Endo: -HgA1C 11.7; insulin sliding scale-medium -Insulin drip discontinued -Maintain euglycemia and normothermia Hematologic -H&H stable <Marcell Matias - Last Filed: 10/13/17 16:06> CCU Objective - Vital Signs / Intake & Output Vital Signs (Last 4 hours): Vital Signs Pulse Resp BP Pulse Ox 10/13/17 15:30 96 H 24 125/80 100 10/13/17 15:00 99 H 24 122/61 100 10/13/17 14:30 101 H 23 127/56 L 100 10/13/17 14:00 104 H 26 H 121/55 L 99 10/13/17 13:30 99 H 21 121/61 100 10/13/17 13:00 97 H 23 117/60 100 10/13/17 12:30 100 H 23 126/47 L 100 10/13/17 12:20 100 H 24 100 10/13/17 12:10 101 H 27 H 100 Intake and Output (Last 8hrs): Intake & Output 10/13/17 10/13/17 10/13/17 06:59 14:59 22:59 Intake Total 1750 12.9 Output Total 220 Balance 1530 12.9 Intake: IV 1450 12.9 Left Femoral 1250 Tube Feeding 300 Output: Urine 200 Urethral (Alexandre) 200 Stool 20 Emesis 0 - Medications Active Medications: Active Medications Generic Name Dose Route Start Last Admin Trade Name Freq PRN Reason Stop Dose Admin Albuterol/Ipratropium 3 ml 10/11/17 02:00 10/13/17 13:56 Duoneb 3 Mg/0.5 Mg (3 Ml) Ud IH 3 ml [id number] JONNY Administration Albuterol/Ipratropium 3 ml 10/10/17 23:20 Duoneb 3 Mg/0.5 Mg (3 Ml) Ud IH Q2H PRN Shortness of Breath Doxercalciferol 1 mcg 10/12/17 10:00 10/13/17 10:26 Hectorol IV 1 mcg DAILY JONNY Administration Famotidine 10 mg 10/12/17 12:00 10/13/17 10:40 Pepcid IVP 10 mg DAILY JONNY Administration Hydrocortisone Sodium Succinate 50 mg 10/13/17 10:00 10/13/17 09:53 Solu-Cortef IVP 50 mg DAILY JONNY Administration Vasopressin 20 units/ Dextrose 101 mls @ 9.09 mls/hr 10/11/17 07:30 10/13/17 06:41 IV 9.09 mls/hr .[id number] JONNY Administration Protocol 0.03 U/MIN Fentanyl Citrate 1,000 mcg in 100 mls @ 2 mls/hr 10/11/17 11:07 10/13/17 08: 39 Fentanyl Citrate/Sodium Chloride 1 Mg/100 Ml IV 0 mcg/hr .Q24H PRN 0 mls/hr TITRATE PER MD ORDER Titration Protocol 20 MCG/HR Doxycycline Hyclate 100 mg/ 100 mls @ 100 mls/hr 10/11/17 22:00 10/13/17 09: 52 Sodium Chloride IVPB 100 mls/hr Q12 JONNY Administration Protocol Insulin Human Regular 100 100 mls @ 4 mls/hr 10/12/17 07:55 10/12/17 23:06 units/ Sodium Chloride IV 4 units/hr .Q24H PRN 4 mls/hr TITRATE PER MD ORDER Administration Protocol 4 UNITS/HR Meropenem 500 mg/ Sodium 50 mls @ 100 mls/hr 10/12/17 10:00 10/13/17 09:52 Chloride IVPB 100 mls/hr DAILY JONNY Administration Protocol Sodium Chloride 1,000 mls @ 100 mls/hr 10/13/17 09:00 10/13/17 09:30 Sodium Chloride 0.45% IV 100 mls/hr .Q10H JONNY Administration Insulin Human Regular 0 units 10/11/17 22:00 10/13/17 13:54 Humulin R Med SC Not Given ACHS JONNY Protocol Mupirocin 0 gm 10/12/17 18:00 10/13/17 10:21 Bactroban Ointment NS 10/17/17 10:01 1 applic BID JONNY Administration - Patient Studies Lab Studies: Microbiology Studies 10/12/17 22:40 C. difficile Antigen & Toxin A,B (M - Final Stool 10/12/17 06:00 Gram Stain - Preliminary Trachasp Sputum Culture - Preliminary Staphylococcus Aureus Gram Negative James 10/11/17 05:00 Blood Culture - Preliminary Blood NO GROWTH AFTER 48 HOURS 10/11/17 04:45 Blood Culture - Preliminary Blood NO GROWTH AFTER 48 HOURS Lab Studies 10/13/17 10/13/17 10/13/17 Range/Units 14:00 13:15 12:09 WBC (4.5-11.0) 10^3/ul RBC (3.5-6.1) 10^6/uL Hgb (12.0-16.0) g/dL Hct (36.0-48.0) % MCV (80.0-105.0) fl MCH (25.0-35.0) pg MCHC (31.0-37.0) g/dl RDW (11.5-14.5) % Plt Count (120.0-450.0) 10^3/uL MPV (7.0-11.0) fl Gran % (50.0-68.0) % Lymph % (Auto) (22.0-35.0) % Gordon % (Auto) (1.0-6.0) % Eos % (Auto) (1.5-5.0) % Baso % (Auto) (0.0-3.0) % Gran # (1.4-6.5) Lymph # (Auto) (1.2-3.4) Gordon # (Auto) (0.1-0.6) Eos # (Auto) (0.0-0.7) Baso # (Auto) (0.0-2.0) K/mm3 PT (9.4-12.5) SECONDS INR (0.93-1.08) APTT (25.1-36.5) Seconds pCO2 35 (35-45) mm/Hg pO2 59.0 L (30-55) mm/Hg HCO3 20.7 L (21-28) mmol/L ABG pH 7.38 (7.35-7.45) ABG Total CO2 21.8 L (22-28) mmol.L ABG O2 Saturation 94.7 L (95-98) % ABG O2 Content 10.9 L (15-23) ML/dl ABG Base Excess -4.0 L (-2.0-3.0) mmol/L ABG Hemoglobin 8.3 L (11.7-17.4) g/dL ABG Carboxyhemoglobin 1.5 (0.5-1.5) % POC ABG HHb (Measured) 5.2 H (0-5) % ABG Methemoglobin 0.7 (0.0-3.0) % ABG O2 Capacity 11.5 L (16-24) mL/dl ABG Potassium (3.6-5.2) mmol/L VBG pH (7.32-7.43) VBG pCO2 (40-60) VBG HCO3 (21-28) mmol/l VBG Total CO2 (22-28) mmol.L VBG O2 Sat (Calc) (40-65) % VBG Base Excess (0.0-2.0) mmol/L VBG Potassium (3.6-5.2) mmol/L Hgb O2 Saturation 92.7 L (95.0-98.0) % Sodium (132-148) mmol/L Chloride (98-107) mmol/L Glucose (65-105) mg/dl Lactate (0.7-2.1) mmol/L FiO2 40.0 % PEEP Pressure Support Potassium (3.6-5.0) mmol/L Carbon Dioxide (21-33) mmol/L Anion Gap (10-20) BUN (7-21) mg/dL Creatinine (0.7-1.2) mg/dl Est GFR ( Amer) Est GFR (Non-Af Amer) POC Glucose (mg/dL) 144 H 170 H (65-110) mg/dL Random Glucose (70-110) mg/dL Calcium (8.4-10.5) mg/dL Total Bilirubin (0.2-1.3) mg/dL AST (14-36) U/L ALT (7-56) U/L Alkaline Phosphatase (38-126) U/L Total Protein (5.8-8.3) g/dL Albumin (3.0-4.8) g/dL Globulin gm/dL Albumin/Globulin Ratio (1.1-1.8) Arterial Blood Potassium (3.6-5.2) mmol/L Venous Blood Potassium (3.6-5.2) mmol/L Urine Color (YELLOW) Urine Appearance (CLEAR) Urine pH (4.7-8.0) Ur Specific [place] (1.005-1.035) Urine Protein (<30 mg/dL) mg/dL Urine Glucose (UA) (NEGATIVE) mg/dL Urine Ketones (NEGATIVE) mg/dL Urine Blood (NEGATIVE) Urine Nitrate (NEGATIVE) Urine Bilirubin (NEGATIVE) Urine Urobilinogen (<1 E.U./dL) E.U./dL Ur Leukocyte Esterase (NEGATIVE) Niranjan/uL Urine RBC (0-2) /hpf Urine WBC (0-6) /hpf Ur Epithelial Cells (0-5) /hpf Urine Bacteria (NEG) Urine Other Blood Type Antibody Screen Antibody Identification Crossmatch BBK History Checked 10/13/17 10/13/17 10/13/17 Range/Units 11:09 10:15 09:55 WBC (4.5-11.0) 10^3/ul RBC (3.5-6.1) 10^6/uL Hgb (12.0-16.0) g/dL Hct (36.0-48.0) % MCV (80.0-105.0) fl MCH (25.0-35.0) pg MCHC (31.0-37.0) g/dl RDW (11.5-14.5) % Plt Count (120.0-450.0) 10^3/uL MPV (7.0-11.0) fl Gran % (50.0-68.0) % Lymph % (Auto) (22.0-35.0) % Gordon % (Auto) (1.0-6.0) % Eos % (Auto) (1.5-5.0) % Baso % (Auto) (0.0-3.0) % Gran # (1.4-6.5) Lymph # (Auto) (1.2-3.4) Gordon # (Auto) (0.1-0.6) Eos # (Auto) (0.0-0.7) Baso # (Auto) (0.0-2.0) K/mm3 PT (9.4-12.5) SECONDS INR (0.93-1.08) APTT (25.1-36.5) Seconds pCO2 (35-45) mm/Hg pO2 49 (30-55) mm/Hg HCO3 (21-28) mmol/L ABG pH (7.35-7.45) ABG Total CO2 (22-28) mmol.L ABG O2 Saturation (95-98) % ABG O2 Content (15-23) ML/dl ABG Base Excess (-2.0-3.0) mmol/L ABG Hemoglobin (11.7-17.4) g/dL ABG Carboxyhemoglobin (0.5-1.5) % POC ABG HHb (Measured) (0-5) % ABG Methemoglobin (0.0-3.0) % ABG O2 Capacity (16-24) mL/dl ABG Potassium (3.6-5.2) mmol/L VBG pH 7.34 (7.32-7.43) VBG pCO2 44.0 (40-60) VBG HCO3 23.7 (21-28) mmol/l VBG Total CO2 25.1 (22-28) mmol.L VBG O2 Sat (Calc) 89.7 H (40-65) % VBG Base Excess -2.2 L (0.0-2.0) mmol/L VBG Potassium 5.1 (3.6-5.2) mmol/L Hgb O2 Saturation (95.0-98.0) % Sodium 145.0 (132-148) mmol/L Chloride 113.0 H (98-107) mmol/L Glucose 220 H (65-105) mg/dl Lactate 5.9 H* (0.7-2.1) mmol/L FiO2 21.0 % PEEP Pressure Support Potassium (3.6-5.0) mmol/L Carbon Dioxide (21-33) mmol/L Anion Gap (10-20) BUN (7-21) mg/dL Creatinine (0.7-1.2) mg/dl Est GFR ( Amer) Est GFR (Non-Af Amer) POC Glucose (mg/dL) 127 H 123 H (65-110) mg/dL Random Glucose (70-110) mg/dL Calcium (8.4-10.5) mg/dL Total Bilirubin (0.2-1.3) mg/dL AST (14-36) U/L ALT (7-56) U/L Alkaline Phosphatase (38-126) U/L Total Protein (5.8-8.3) g/dL Albumin (3.0-4.8) g/dL Globulin gm/dL Albumin/Globulin Ratio (1.1-1.8) Arterial Blood Potassium (3.6-5.2) mmol/L Venous Blood Potassium 5.1 (3.6-5.2) mmol/L Urine Color (YELLOW) Urine Appearance (CLEAR) Urine pH (4.7-8.0) Ur Specific [place] (1.005-1.035) Urine Protein (<30 mg/dL) mg/dL Urine Glucose (UA) (NEGATIVE) mg/dL Urine Ketones (NEGATIVE) mg/dL Urine Blood (NEGATIVE) Urine Nitrate (NEGATIVE) Urine Bilirubin (NEGATIVE) Urine Urobilinogen (<1 E.U./dL) E.U./dL Ur Leukocyte Esterase (NEGATIVE) Niranjan/uL Urine RBC (0-2) /hpf Urine WBC (0-6) /hpf Ur Epithelial Cells (0-5) /hpf Urine Bacteria (NEG) Urine Other Blood Type Antibody Screen Antibody Identification Crossmatch BBK History Checked 10/13/17 10/13/17 10/13/17 Range/Units 09:24 09:15 08:32 WBC (4.5-11.0) 10^3/ul RBC (3.5-6.1) 10^6/uL Hgb (12.0-16.0) g/dL Hct (36.0-48.0) % MCV (80.0-105.0) fl MCH (25.0-35.0) pg MCHC (31.0-37.0) g/dl RDW (11.5-14.5) % Plt Count (120.0-450.0) 10^3/uL MPV (7.0-11.0) fl Gran % (50.0-68.0) % Lymph % (Auto) (22.0-35.0) % Gordon % (Auto) (1.0-6.0) % Eos % (Auto) (1.5-5.0) % Baso % (Auto) (0.0-3.0) % Gran # (1.4-6.5) Lymph # (Auto) (1.2-3.4) Gordon # (Auto) (0.1-0.6) Eos # (Auto) (0.0-0.7) Baso # (Auto) (0.0-2.0) K/mm3 PT (9.4-12.5) SECONDS INR (0.93-1.08) APTT (25.1-36.5) Seconds pCO2 35 (35-45) mm/Hg pO2 150.0 H (30-55) mm/Hg HCO3 20.7 L (21-28) mmol/L ABG pH 7.38 (7.35-7.45) ABG Total CO2 21.8 L (22-28) mmol.L ABG O2 Saturation 98.8 H (95-98) % ABG O2 Content (15-23) ML/dl ABG Base Excess -3.8 L (-2.0-3.0) mmol/L ABG Hemoglobin (11.7-17.4) g/dL ABG Carboxyhemoglobin (0.5-1.5) % POC ABG HHb (Measured) (0-5) % ABG Methemoglobin (0.0-3.0) % ABG O2 Capacity (16-24) mL/dl ABG Potassium 4.3 (3.6-5.2) mmol/L VBG pH (7.32-7.43) VBG pCO2 (40-60) VBG HCO3 (21-28) mmol/l VBG Total CO2 (22-28) mmol.L VBG O2 Sat (Calc) (40-65) % VBG Base Excess (0.0-2.0) mmol/L VBG Potassium (3.6-5.2) mmol/L Hgb O2 Saturation (95.0-98.0) % Sodium 147.0 (132-148) mmol/L Chloride 118.0 H (98-107) mmol/L Glucose 187 H (65-105) mg/dl Lactate 4.5 H* (0.7-2.1) mmol/L FiO2 60.0 % PEEP 5 Pressure Support 5 Potassium (3.6-5.0) mmol/L Carbon Dioxide (21-33) mmol/L Anion Gap (10-20) BUN (7-21) mg/dL Creatinine (0.7-1.2) mg/dl Est GFR ( Amer) Est GFR (Non-Af Amer) POC Glucose (mg/dL) 130 H 93 (65-110) mg/dL Random Glucose (70-110) mg/dL Calcium (8.4-10.5) mg/dL Total Bilirubin (0.2-1.3) mg/dL AST (14-36) U/L ALT (7-56) U/L Alkaline Phosphatase (38-126) U/L Total Protein (5.8-8.3) g/dL Albumin (3.0-4.8) g/dL Globulin gm/dL Albumin/Globulin Ratio (1.1-1.8) Arterial Blood Potassium 4.3 (3.6-5.2) mmol/L Venous Blood Potassium (3.6-5.2) mmol/L Urine Color (YELLOW) Urine Appearance (CLEAR) Urine pH (4.7-8.0) Ur Specific [place] (1.005-1.035) Urine Protein (<30 mg/dL) mg/dL Urine Glucose (UA) (NEGATIVE) mg/dL Urine Ketones (NEGATIVE) mg/dL Urine Blood (NEGATIVE) Urine Nitrate (NEGATIVE) Urine Bilirubin (NEGATIVE) Urine Urobilinogen (<1 E.U./dL) E.U./dL Ur Leukocyte Esterase (NEGATIVE) Niranjan/uL Urine RBC (0-2) /hpf Urine WBC (0-6) /hpf Ur Epithelial Cells (0-5) /hpf Urine Bacteria (NEG) Urine Other Blood Type Antibody Screen Antibody Identification Crossmatch BBK History Checked 10/13/17 10/13/17 10/13/17 Range/Units 07:34 06:40 06:40 WBC (4.5-11.0) 10^3/ul RBC (3.5-6.1) 10^6/uL Hgb (12.0-16.0) g/dL Hct (36.0-48.0) % MCV (80.0-105.0) fl MCH (25.0-35.0) pg MCHC (31.0-37.0) g/dl RDW (11.5-14.5) % Plt Count (120.0-450.0) 10^3/uL MPV (7.0-11.0) fl Gran % (50.0-68.0) % Lymph % (Auto) (22.0-35.0) % Gordon % (Auto) (1.0-6.0) % Eos % (Auto) (1.5-5.0) % Baso % (Auto) (0.0-3.0) % Gran # (1.4-6.5) Lymph # (Auto) (1.2-3.4) Gordon # (Auto) (0.1-0.6) Eos # (Auto) (0.0-0.7) Baso # (Auto) (0.0-2.0) K/mm3 PT 25.7 H (9.4-12.5) SECONDS INR 2.20 H (0.93-1.08) APTT 31.7 (25.1-36.5) Seconds pCO2 (35-45) mm/Hg pO2 (30-55) mm/Hg HCO3 (21-28) mmol/L ABG pH (7.35-7.45) ABG Total CO2 (22-28) mmol.L ABG O2 Saturation (95-98) % ABG O2 Content (15-23) ML/dl ABG Base Excess (-2.0-3.0) mmol/L ABG Hemoglobin (11.7-17.4) g/dL ABG Carboxyhemoglobin (0.5-1.5) % POC ABG HHb (Measured) (0-5) % ABG Methemoglobin (0.0-3.0) % ABG O2 Capacity (16-24) mL/dl ABG Potassium (3.6-5.2) mmol/L VBG pH (7.32-7.43) VBG pCO2 (40-60) VBG HCO3 (21-28) mmol/l VBG Total CO2 (22-28) mmol.L VBG O2 Sat (Calc) (40-65) % VBG Base Excess (0.0-2.0) mmol/L VBG Potassium (3.6-5.2) mmol/L Hgb O2 Saturation (95.0-98.0) % Sodium 151 H (132-148) mmol/L Chloride 112 H (98-107) mmol/L Glucose (65-105) mg/dl Lactate (0.7-2.1) mmol/L FiO2 % PEEP Pressure Support Potassium 5.0 (3.6-5.0) mmol/L Carbon Dioxide 24 (21-33) mmol/L Anion Gap 20 (10-20) BUN 87 H (7-21) mg/dL Creatinine 3.6 H (0.7-1.2) mg/dl Est GFR ( Amer) 15 Est GFR (Non-Af Amer) 12 POC Glucose (mg/dL) 78 (65-110) mg/dL Random Glucose 196 H (70-110) mg/dL Calcium 7.1 L (8.4-10.5) mg/dL Total Bilirubin 0.9 (0.2-1.3) mg/dL AST 1458 H (14-36) U/L ALT 746 H (7-56) U/L Alkaline Phosphatase 96 (38-126) U/L Total Protein 4.8 L (5.8-8.3) g/dL Albumin 2.2 L (3.0-4.8) g/dL Globulin 2.5 gm/dL Albumin/Globulin Ratio 0.9 L (1.1-1.8) Arterial Blood Potassium (3.6-5.2) mmol/L Venous Blood Potassium (3.6-5.2) mmol/L Urine Color (YELLOW) Urine Appearance (CLEAR) Urine pH (4.7-8.0) Ur Specific [place] (1.005-1.035) Urine Protein (<30 mg/dL) mg/dL Urine Glucose (UA) (NEGATIVE) mg/dL Urine Ketones (NEGATIVE) mg/dL Urine Blood (NEGATIVE) Urine Nitrate (NEGATIVE) Urine Bilirubin (NEGATIVE) Urine Urobilinogen (<1 E.U./dL) E.U./dL Ur Leukocyte Esterase (NEGATIVE) Niranjan/uL Urine RBC (0-2) /hpf Urine WBC (0-6) /hpf Ur Epithelial Cells (0-5) /hpf Urine Bacteria (NEG) Urine Other Blood Type Antibody Screen Antibody Identification Crossmatch BBK History Checked 10/13/17 10/13/17 10/13/17 Range/Units 06:40 06:20 05:01 WBC 10.5 (4.5-11.0) 10^3/ul RBC 3.00 L (3.5-6.1) 10^6/uL Hgb 8.5 L (12.0-16.0) g/dL Hct 27.8 L (36.0-48.0) % MCV 92.7 (80.0-105.0) fl MCH 28.3 (25.0-35.0) pg MCHC 30.6 L (31.0-37.0) g/dl RDW 14.8 H (11.5-14.5) % Plt Count 36 L* (120.0-450.0) 10^3/uL MPV (7.0-11.0) fl Gran % 88.0 H (50.0-68.0) % Lymph % (Auto) 5.6 L (22.0-35.0) % Gordon % (Auto) 6.4 H (1.0-6.0) % Eos % (Auto) 0.0 L (1.5-5.0) % Baso % (Auto) 0.0 (0.0-3.0) % Gran # 9.28 H (1.4-6.5) Lymph # (Auto) 0.6 L (1.2-3.4) Gordon # (Auto) 0.7 H (0.1-0.6) Eos # (Auto) 0.0 (0.0-0.7) Baso # (Auto) 0.00 (0.0-2.0) K/mm3 PT (9.4-12.5) SECONDS INR (0.93-1.08) APTT (25.1-36.5) Seconds pCO2 (35-45) mm/Hg pO2 165 H (30-55) mm/Hg HCO3 (21-28) mmol/L ABG pH (7.35-7.45) ABG Total CO2 (22-28) mmol.L ABG O2 Saturation (95-98) % ABG O2 Content (15-23) ML/dl ABG Base Excess (-2.0-3.0) mmol/L ABG Hemoglobin (11.7-17.4) g/dL ABG Carboxyhemoglobin (0.5-1.5) % POC ABG HHb (Measured) (0-5) % ABG Methemoglobin (0.0-3.0) % ABG O2 Capacity (16-24) mL/dl ABG Potassium (3.6-5.2) mmol/L VBG pH 7.37 (7.32-7.43) VBG pCO2 42.0 (40-60) VBG HCO3 24.3 (21-28) mmol/l VBG Total CO2 25.6 (22-28) mmol.L VBG O2 Sat (Calc) 99.3 H (40-65) % VBG Base Excess -1.1 L (0.0-2.0) mmol/L VBG Potassium 5.1 (3.6-5.2) mmol/L Hgb O2 Saturation (95.0-98.0) % Sodium 146.0 (132-148) mmol/L Chloride 116.0 H (98-107) mmol/L Glucose 220 H (65-105) mg/dl Lactate 5.3 H* (0.7-2.1) mmol/L FiO2 21.0 % PEEP Pressure Support Potassium (3.6-5.0) mmol/L Carbon Dioxide (21-33) mmol/L Anion Gap (10-20) BUN (7-21) mg/dL Creatinine (0.7-1.2) mg/dl Est GFR ( Amer) Est GFR (Non-Af Amer) POC Glucose (mg/dL) 129 H (65-110) mg/dL Random Glucose (70-110) mg/dL Calcium (8.4-10.5) mg/dL Total Bilirubin (0.2-1.3) mg/dL AST (14-36) U/L ALT (7-56) U/L Alkaline Phosphatase (38-126) U/L Total Protein (5.8-8.3) g/dL Albumin (3.0-4.8) g/dL Globulin gm/dL Albumin/Globulin Ratio (1.1-1.8) Arterial Blood Potassium (3.6-5.2) mmol/L Venous Blood Potassium 5.1 (3.6-5.2) mmol/L Urine Color (YELLOW) Urine Appearance (CLEAR) Urine pH (4.7-8.0) Ur Specific [place] (1.005-1.035) Urine Protein (<30 mg/dL) mg/dL Urine Glucose (UA) (NEGATIVE) mg/dL Urine Ketones (NEGATIVE) mg/dL Urine Blood (NEGATIVE) Urine Nitrate (NEGATIVE) Urine Bilirubin (NEGATIVE) Urine Urobilinogen (<1 E.U./dL) E.U./dL Ur Leukocyte Esterase (NEGATIVE) Niranjan/uL Urine RBC (0-2) /hpf Urine WBC (0-6) /hpf Ur Epithelial Cells (0-5) /hpf Urine Bacteria (NEG) Urine Other Blood Type Antibody Screen Antibody Identification Crossmatch BBK History Checked 10/13/17 10/13/17 10/13/17 Range/Units 03:59 03:19 01:36 WBC (4.5-11.0) 10^3/ul RBC (3.5-6.1) 10^6/uL Hgb (12.0-16.0) g/dL Hct (36.0-48.0) % MCV (80.0-105.0) fl MCH (25.0-35.0) pg MCHC (31.0-37.0) g/dl RDW (11.5-14.5) % Plt Count (120.0-450.0) 10^3/uL MPV (7.0-11.0) fl Gran % (50.0-68.0) % Lymph % (Auto) (22.0-35.0) % Gordon % (Auto) (1.0-6.0) % Eos % (Auto) (1.5-5.0) % Baso % (Auto) (0.0-3.0) % Gran # (1.4-6.5) Lymph # (Auto) (1.2-3.4) Gordon # (Auto) (0.1-0.6) Eos # (Auto) (0.0-0.7) Baso # (Auto) (0.0-2.0) K/mm3 PT (9.4-12.5) SECONDS INR (0.93-1.08) APTT (25.1-36.5) Seconds pCO2 (35-45) mm/Hg pO2 (30-55) mm/Hg HCO3 (21-28) mmol/L ABG pH (7.35-7.45) ABG Total CO2 (22-28) mmol.L ABG O2 Saturation (95-98) % ABG O2 Content (15-23) ML/dl ABG Base Excess (-2.0-3.0) mmol/L ABG Hemoglobin (11.7-17.4) g/dL ABG Carboxyhemoglobin (0.5-1.5) % POC ABG HHb (Measured) (0-5) % ABG Methemoglobin (0.0-3.0) % ABG O2 Capacity (16-24) mL/dl ABG Potassium (3.6-5.2) mmol/L VBG pH (7.32-7.43) VBG pCO2 (40-60) VBG HCO3 (21-28) mmol/l VBG Total CO2 (22-28) mmol.L VBG O2 Sat (Calc) (40-65) % VBG Base Excess (0.0-2.0) mmol/L VBG Potassium (3.6-5.2) mmol/L Hgb O2 Saturation (95.0-98.0) % Sodium (132-148) mmol/L Chloride (98-107) mmol/L Glucose (65-105) mg/dl Lactate (0.7-2.1) mmol/L FiO2 % PEEP Pressure Support Potassium (3.6-5.0) mmol/L Carbon Dioxide (21-33) mmol/L Anion Gap (10-20) BUN (7-21) mg/dL Creatinine (0.7-1.2) mg/dl Est GFR ( Amer) Est GFR (Non-Af Amer) POC Glucose (mg/dL) 125 H 111 H 73 (65-110) mg/dL Random Glucose (70-110) mg/dL Calcium (8.4-10.5) mg/dL Total Bilirubin (0.2-1.3) mg/dL AST (14-36) U/L ALT (7-56) U/L Alkaline Phosphatase (38-126) U/L Total Protein (5.8-8.3) g/dL Albumin (3.0-4.8) g/dL Globulin gm/dL Albumin/Globulin Ratio (1.1-1.8) Arterial Blood Potassium (3.6-5.2) mmol/L Venous Blood Potassium (3.6-5.2) mmol/L Urine Color (YELLOW) Urine Appearance (CLEAR) Urine pH (4.7-8.0) Ur Specific [place] (1.005-1.035) Urine Protein (<30 mg/dL) mg/dL Urine Glucose (UA) (NEGATIVE) mg/dL Urine Ketones (NEGATIVE) mg/dL Urine Blood (NEGATIVE) Urine Nitrate (NEGATIVE) Urine Bilirubin (NEGATIVE) Urine Urobilinogen (<1 E.U./dL) E.U./dL Ur Leukocyte Esterase (NEGATIVE) Niranjan/uL Urine RBC (0-2) /hpf Urine WBC (0-6) /hpf Ur Epithelial Cells (0-5) /hpf Urine Bacteria (NEG) Urine Other Blood Type Antibody Screen Antibody Identification Crossmatch BBK History Checked 10/13/17 10/12/17 10/12/17 Range/Units 00:06 23:25 21:50 WBC (4.5-11.0) 10^3/ul RBC (3.5-6.1) 10^6/uL Hgb (12.0-16.0) g/dL Hct (36.0-48.0) % MCV (80.0-105.0) fl MCH (25.0-35.0) pg MCHC (31.0-37.0) g/dl RDW (11.5-14.5) % Plt Count (120.0-450.0) 10^3/uL MPV (7.0-11.0) fl Gran % (50.0-68.0) % Lymph % (Auto) (22.0-35.0) % Gordon % (Auto) (1.0-6.0) % Eos % (Auto) (1.5-5.0) % Baso % (Auto) (0.0-3.0) % Gran # (1.4-6.5) Lymph # (Auto) (1.2-3.4) Gordon # (Auto) (0.1-0.6) Eos # (Auto) (0.0-0.7) Baso # (Auto) (0.0-2.0) K/mm3 PT (9.4-12.5) SECONDS INR (0.93-1.08) APTT (25.1-36.5) Seconds pCO2 (35-45) mm/Hg pO2 197 H (30-55) mm/Hg HCO3 (21-28) mmol/L ABG pH (7.35-7.45) ABG Total CO2 (22-28) mmol.L ABG O2 Saturation (95-98) % ABG O2 Content (15-23) ML/dl ABG Base Excess (-2.0-3.0) mmol/L ABG Hemoglobin (11.7-17.4) g/dL ABG Carboxyhemoglobin (0.5-1.5) % POC ABG HHb (Measured) (0-5) % ABG Methemoglobin (0.0-3.0) % ABG O2 Capacity (16-24) mL/dl ABG Potassium (3.6-5.2) mmol/L VBG pH 7.36 (7.32-7.43) VBG pCO2 55.0 (40-60) VBG HCO3 31.1 H (21-28) mmol/l VBG Total CO2 32.8 H (22-28) mmol.L VBG O2 Sat (Calc) 99.3 H (40-65) % VBG Base Excess 4.2 H (0.0-2.0) mmol/L VBG Potassium 4.2 (3.6-5.2) mmol/L Hgb O2 Saturation (95.0-98.0) % Sodium 153.0 H (132-148) mmol/L Chloride 120.0 H (98-107) mmol/L Glucose 77 (65-105) mg/dl Lactate 3.2 H (0.7-2.1) mmol/L FiO2 21.0 % PEEP Pressure Support Potassium (3.6-5.0) mmol/L Carbon Dioxide (21-33) mmol/L Anion Gap (10-20) BUN (7-21) mg/dL Creatinine (0.7-1.2) mg/dl Est GFR ( Amer) Est GFR (Non-Af Amer) POC Glucose (mg/dL) 45 L (65-110) mg/dL Random Glucose (70-110) mg/dL Calcium (8.4-10.5) mg/dL Total Bilirubin (0.2-1.3) mg/dL AST (14-36) U/L ALT (7-56) U/L Alkaline Phosphatase (38-126) U/L Total Protein (5.8-8.3) g/dL Albumin (3.0-4.8) g/dL Globulin gm/dL Albumin/Globulin Ratio (1.1-1.8) Arterial Blood Potassium (3.6-5.2) mmol/L Venous Blood Potassium 4.2 (3.6-5.2) mmol/L Urine Color Dark yellow (YELLOW) Urine Appearance Cloudy (CLEAR) Urine pH 7.0 (4.7-8.0) Ur Specific [place] 1.020 (1.005-1.035) Urine Protein 100 H (<30 mg/dL) mg/dL Urine Glucose (UA) Negative (NEGATIVE) mg/dL Urine Ketones Negative (NEGATIVE) mg/dL Urine Blood Large H (NEGATIVE) Urine Nitrate Negative (NEGATIVE) Urine Bilirubin Negative (NEGATIVE) Urine Urobilinogen 0.2 (<1 E.U./dL) E.U./dL Ur Leukocyte Esterase Moderate H (NEGATIVE) Niranjan/uL Urine RBC Tntc (0-2) /hpf Urine WBC 2 - 5 (0-6) /hpf Ur Epithelial Cells 6 - 8 (0-5) /hpf Urine Bacteria Many (NEG) Urine Other Mucus Blood Type Antibody Screen Antibody Identification Crossmatch BBK History Checked 10/12/17 10/12/17 10/12/17 Range/Units 21:50 21:50 19:41 WBC 11.6 H (4.5-11.0) 10^3/ul RBC 3.00 L (3.5-6.1) 10^6/uL Hgb 8.4 L (12.0-16.0) g/dL Hct 27.7 L (36.0-48.0) % MCV 92.3 D (80.0-105.0) fl MCH 28.0 (25.0-35.0) pg MCHC 30.3 L (31.0-37.0) g/dl RDW 14.7 H (11.5-14.5) % Plt Count 35 L* (120.0-450.0) 10^3/uL MPV 11.5 H (7.0-11.0) fl Gran % 82.9 H (50.0-68.0) % Lymph % (Auto) 14.8 L (22.0-35.0) % Gordon % (Auto) 2.2 (1.0-6.0) % Eos % (Auto) 0.1 L (1.5-5.0) % Baso % (Auto) 0.0 (0.0-3.0) % Gran # 9.60 H (1.4-6.5) Lymph # (Auto) 1.7 (1.2-3.4) [place] # (Auto) 0.3 (0.1-0.6) Eos # (Auto) 0.0 (0.0-0.7) Baso # (Auto) 0.00 (0.0-2.0) K/mm3 PT (9.4-12.5) SECONDS INR (0.93-1.08) APTT (25.1-36.5) Seconds pCO2 (35-45) mm/Hg pO2 (30-55) mm/Hg HCO3 (21-28) mmol/L ABG pH (7.35-7.45) ABG Total CO2 (22-28) mmol.L ABG O2 Saturation (95-98) % ABG O2 Content (15-23) ML/dl ABG Base Excess (-2.0-3.0) mmol/L ABG Hemoglobin (11.7-17.4) g/dL ABG Carboxyhemoglobin (0.5-1.5) % POC ABG HHb (Measured) (0-5) % ABG Methemoglobin (0.0-3.0) % ABG O2 Capacity (16-24) mL/dl ABG Potassium (3.6-5.2) mmol/L VBG pH (7.32-7.43) VBG pCO2 (40-60) VBG HCO3 (21-28) mmol/l VBG Total CO2 (22-28) mmol.L VBG O2 Sat (Calc) (40-65) % VBG Base Excess (0.0-2.0) mmol/L VBG Potassium (3.6-5.2) mmol/L Hgb O2 Saturation (95.0-98.0) % Sodium 153 H (132-148) mmol/L Chloride 115 H (98-107) mmol/L Glucose (65-105) mg/dl Lactate (0.7-2.1) mmol/L FiO2 % PEEP Pressure Support Potassium 4.2 (3.6-5.0) mmol/L Carbon Dioxide 32 (21-33) mmol/L Anion Gap 11 (10-20) BUN 88 H (7-21) mg/dL Creatinine 3.3 H (0.7-1.2) mg/dl Est GFR ( Amer) 16 Est GFR (Non-Af Amer) 14 POC Glucose (mg/dL) 82 (65-110) mg/dL Random Glucose 73 (70-110) mg/dL Calcium 6.8 L* (8.4-10.5) mg/dL Total Bilirubin 0.8 (0.2-1.3) mg/dL AST 1482 H (14-36) U/L ALT 693 H (7-56) U/L Alkaline Phosphatase 83 (38-126) U/L Total Protein 4.6 L (5.8-8.3) g/dL Albumin 2.1 L (3.0-4.8) g/dL Globulin 2.5 gm/dL Albumin/Globulin Ratio 0.8 L (1.1-1.8) Arterial Blood Potassium (3.6-5.2) mmol/L Venous Blood Potassium (3.6-5.2) mmol/L Urine Color (YELLOW) Urine Appearance (CLEAR) Urine pH (4.7-8.0) Ur Specific [place] (1.005-1.035) Urine Protein (<30 mg/dL) mg/dL Urine Glucose (UA) (NEGATIVE) mg/dL Urine Ketones (NEGATIVE) mg/dL Urine Blood (NEGATIVE) Urine Nitrate (NEGATIVE) Urine Bilirubin (NEGATIVE) Urine Urobilinogen (<1 E.U./dL) E.U./dL Ur Leukocyte Esterase (NEGATIVE) Niranjan/uL Urine RBC (0-2) /hpf Urine WBC (0-6) /hpf Ur Epithelial Cells (0-5) /hpf Urine Bacteria (NEG) Urine Other Blood Type Antibody Screen Antibody Identification Crossmatch BBK History Checked 10/12/17 10/12/17 10/12/17 Range/Units 17:15 16:09 15:00 WBC (4.5-11.0) 10^3/ul RBC (3.5-6.1) 10^6/uL Hgb (12.0-16.0) g/dL Hct (36.0-48.0) % MCV (80.0-105.0) fl MCH (25.0-35.0) pg MCHC (31.0-37.0) g/dl RDW (11.5-14.5) % Plt Count (120.0-450.0) 10^3/uL MPV (7.0-11.0) fl Gran % (50.0-68.0) % Lymph % (Auto) (22.0-35.0) % [place] % (Auto) (1.0-6.0) % Eos % (Auto) (1.5-5.0) % Baso % (Auto) (0.0-3.0) % Gran # (1.4-6.5) Lymph # (Auto) (1.2-3.4) [place] # (Auto) (0.1-0.6) Eos # (Auto) (0.0-0.7) Baso # (Auto) (0.0-2.0) K/mm3 PT (9.4-12.5) SECONDS INR (0.93-1.08) APTT (25.1-36.5) Seconds pCO2 (35-45) mm/Hg pO2 54 (30-55) mm/Hg HCO3 (21-28) mmol/L ABG pH (7.35-7.45) ABG Total CO2 (22-28) mmol.L ABG O2 Saturation (95-98) % ABG O2 Content (15-23) ML/dl ABG Base Excess (-2.0-3.0) mmol/L ABG Hemoglobin (11.7-17.4) g/dL ABG Carboxyhemoglobin (0.5-1.5) % POC ABG HHb (Measured) (0-5) % ABG Methemoglobin (0.0-3.0) % ABG O2 Capacity (16-24) mL/dl ABG Potassium (3.6-5.2) mmol/L VBG pH 7.30 L (7.32-7.43) VBG pCO2 56.0 (40-60) VBG HCO3 27.6 (21-28) mmol/l VBG Total CO2 29.3 H (22-28) mmol.L VBG O2 Sat (Calc) 90.6 H (40-65) % VBG Base Excess 0.1 (0.0-2.0) mmol/L VBG Potassium 4.4 (3.6-5.2) mmol/L Hgb O2 Saturation (95.0-98.0) % Sodium 156.0 H (132-148) mmol/L Chloride 123.0 H (98-107) mmol/L Glucose 159 H (65-105) mg/dl Lactate 7.0 H* (0.7-2.1) mmol/L FiO2 21.0 % PEEP Pressure Support Potassium (3.6-5.0) mmol/L Carbon Dioxide (21-33) mmol/L Anion Gap (10-20) BUN (7-21) mg/dL Creatinine (0.7-1.2) mg/dl Est GFR ( Amer) Est GFR (Non-Af Amer) POC Glucose (mg/dL) 198 H (65-110) mg/dL Random Glucose (70-110) mg/dL Calcium (8.4-10.5) mg/dL Total Bilirubin (0.2-1.3) mg/dL AST (14-36) U/L ALT (7-56) U/L Alkaline Phosphatase (38-126) U/L Total Protein (5.8-8.3) g/dL Albumin (3.0-4.8) g/dL Globulin gm/dL Albumin/Globulin Ratio (1.1-1.8) Arterial Blood Potassium (3.6-5.2) mmol/L Venous Blood Potassium 4.4 (3.6-5.2) mmol/L Urine Color (YELLOW) Urine Appearance (CLEAR) Urine pH (4.7-8.0) Ur Specific [place] (1.005-1.035) Urine Protein (<30 mg/dL) mg/dL Urine Glucose (UA) (NEGATIVE) mg/dL Urine Ketones (NEGATIVE) mg/dL Urine Blood (NEGATIVE) Urine Nitrate (NEGATIVE) Urine Bilirubin (NEGATIVE) Urine Urobilinogen (<1 E.U./dL) E.U./dL Ur Leukocyte Esterase (NEGATIVE) Niranjan/uL Urine RBC (0-2) /hpf Urine WBC (0-6) /hpf Ur Epithelial Cells (0-5) /hpf Urine Bacteria (NEG) Urine Other Blood Type O POSITIVE Antibody Screen Negative Antibody Identification Non Specific Antibody Crossmatch See Detail BBK History Checked Patient has bt 10/12/17 Range/Units 12:01 WBC (4.5-11.0) 10^3/ul RBC (3.5-6.1) 10^6/uL Hgb (12.0-16.0) g/dL Hct (36.0-48.0) % MCV (80.0-105.0) fl MCH (25.0-35.0) pg MCHC (31.0-37.0) g/dl RDW (11.5-14.5) % Plt Count (120.0-450.0) 10^3/uL MPV (7.0-11.0) fl Gran % (50.0-68.0) % Lymph % (Auto) (22.0-35.0) % [place] % (Auto) (1.0-6.0) % Eos % (Auto) (1.5-5.0) % Baso % (Auto) (0.0-3.0) % Gran # (1.4-6.5) Lymph # (Auto) (1.2-3.4) [place] # (Auto) (0.1-0.6) Eos # (Auto) (0.0-0.7) Baso # (Auto) (0.0-2.0) K/mm3 PT (9.4-12.5) SECONDS INR (0.93-1.08) APTT (25.1-36.5) Seconds pCO2 (35-45) mm/Hg pO2 (30-55) mm/Hg HCO3 (21-28) mmol/L ABG pH (7.35-7.45) ABG Total CO2 (22-28) mmol.L ABG O2 Saturation (95-98) % ABG O2 Content (15-23) ML/dl ABG Base Excess (-2.0-3.0) mmol/L ABG Hemoglobin (11.7-17.4) g/dL ABG Carboxyhemoglobin (0.5-1.5) % POC ABG HHb (Measured) (0-5) % ABG Methemoglobin (0.0-3.0) % ABG O2 Capacity (16-24) mL/dl ABG Potassium (3.6-5.2) mmol/L VBG pH (7.32-7.43) VBG pCO2 (40-60) VBG HCO3 (21-28) mmol/l VBG Total CO2 (22-28) mmol.L VBG O2 Sat (Calc) (40-65) % VBG Base Excess (0.0-2.0) mmol/L VBG Potassium (3.6-5.2) mmol/L Hgb O2 Saturation (95.0-98.0) % Sodium (132-148) mmol/L Chloride (98-107) mmol/L Glucose (65-105) mg/dl Lactate (0.7-2.1) mmol/L FiO2 % PEEP Pressure Support Potassium (3.6-5.0) mmol/L Carbon Dioxide (21-33) mmol/L Anion Gap (10-20) BUN (7-21) mg/dL Creatinine (0.7-1.2) mg/dl Est GFR ( Amer) Est GFR (Non-Af Amer) POC Glucose (mg/dL) 301 H (65-110) mg/dL Random Glucose (70-110) mg/dL Calcium (8.4-10.5) mg/dL Total Bilirubin (0.2-1.3) mg/dL AST (14-36) U/L ALT (7-56) U/L Alkaline Phosphatase (38-126) U/L Total Protein (5.8-8.3) g/dL Albumin (3.0-4.8) g/dL Globulin gm/dL Albumin/Globulin Ratio (1.1-1.8) Arterial Blood Potassium (3.6-5.2) mmol/L Venous Blood Potassium (3.6-5.2) mmol/L Urine Color (YELLOW) Urine Appearance (CLEAR) Urine pH (4.7-8.0) Ur Specific [place] (1.005-1.035) Urine Protein (<30 mg/dL) mg/dL Urine Glucose (UA) (NEGATIVE) mg/dL Urine Ketones (NEGATIVE) mg/dL Urine Blood (NEGATIVE) Urine Nitrate (NEGATIVE) Urine Bilirubin (NEGATIVE) Urine Urobilinogen (<1 E.U./dL) E.U./dL Ur Leukocyte Esterase (NEGATIVE) Niranjan/uL Urine RBC (0-2) /hpf Urine WBC (0-6) /hpf Ur Epithelial Cells (0-5) /hpf Urine Bacteria (NEG) Urine Other Blood Type Antibody Screen Antibody Identification Crossmatch BBK History Checked Laboratory Results - last 24 hr 10/12/17 10/12/17 10/12/17 12:01 15:00 16:09 WBC RBC Hgb Hct MCV MCH MCHC RDW Plt Count MPV Gran % Lymph % (Auto) [place] % (Auto) Eos % (Auto) Baso % (Auto) Gran # Lymph # (Auto) [place] # (Auto) Eos # (Auto) Baso # (Auto) PT INR APTT pCO2 pO2 HCO3 ABG pH ABG Total CO2 ABG O2 Saturation ABG O2 Content ABG Base Excess ABG Hemoglobin ABG Carboxyhemoglobin POC ABG HHb (Measured) ABG Methemoglobin ABG O2 Capacity ABG Potassium VBG pH VBG pCO2 VBG HCO3 VBG Total CO2 VBG O2 Sat (Calc) VBG Base Excess VBG Potassium Hgb O2 Saturation Sodium Chloride Glucose Lactate FiO2 PEEP Pressure Support Potassium Carbon Dioxide Anion Gap BUN Creatinine Est GFR ( Amer) Est GFR (Non-Af Amer) POC Glucose (mg/dL) 301 H 198 H Random Glucose Calcium Total Bilirubin AST ALT Alkaline Phosphatase Total Protein Albumin Globulin Albumin/Globulin Ratio Arterial Blood Potassium Venous Blood Potassium Urine Color Urine Appearance Urine pH Ur Specific [place] Urine Protein Urine Glucose (UA) Urine Ketones Urine Blood Urine Nitrate Urine Bilirubin Urine Urobilinogen Ur Leukocyte Esterase Urine RBC Urine WBC Ur Epithelial Cells Urine Bacteria Urine Other Blood Type O POSITIVE Antibody Screen Negative Antibody Identification Non Specific Antibody Crossmatch See Detail BBK History Checked Patient has bt 10/12/17 10/12/17 10/12/17 17:15 19:41 21:50 WBC RBC Hgb Hct MCV MCH MCHC RDW Plt Count MPV Gran % Lymph % (Auto) [place] % (Auto) Eos % (Auto) Baso % (Auto) Gran # Lymph # (Auto) [place] # (Auto) Eos # (Auto) Baso # (Auto) PT INR APTT pCO2 pO2 54 HCO3 ABG pH ABG Total CO2 ABG O2 Saturation ABG O2 Content ABG Base Excess ABG Hemoglobin ABG Carboxyhemoglobin POC ABG HHb (Measured) ABG Methemoglobin ABG O2 Capacity ABG Potassium VBG pH 7.30 L VBG pCO2 56.0 VBG HCO3 27.6 VBG Total CO2 29.3 H VBG O2 Sat (Calc) 90.6 H VBG Base Excess 0.1 VBG Potassium 4.4 Hgb O2 Saturation Sodium 156.0 H 153 H Chloride 123.0 H 115 H Glucose 159 H Lactate 7.0 H* FiO2 21.0 PEEP Pressure Support Potassium 4.2 Carbon Dioxide 32 Anion Gap 11 BUN 88 H Creatinine 3.3 H Est GFR ( Amer) 16 Est GFR (Non-Af Amer) 14 POC Glucose (mg/dL) 82 Random Glucose 73 Calcium 6.8 L* Total Bilirubin 0.8 AST 1482 H ALT 693 H Alkaline Phosphatase 83 Total Protein 4.6 L Albumin 2.1 L Globulin 2.5 Albumin/Globulin Ratio 0.8 L Arterial Blood Potassium Venous Blood Potassium 4.4 Urine Color Urine Appearance Urine pH Ur Specific [place] Urine Protein Urine Glucose (UA) Urine Ketones Urine Blood Urine Nitrate Urine Bilirubin Urine Urobilinogen Ur Leukocyte Esterase Urine RBC Urine WBC Ur Epithelial Cells Urine Bacteria Urine Other Blood Type Antibody Screen Antibody Identification Crossmatch BBK History Checked 10/12/17 10/12/17 10/12/17 21:50 21:50 23:25 WBC 11.6 H RBC 3.00 L Hgb 8.4 L Hct 27.7 L MCV 92.3 D MCH 28.0 MCHC 30.3 L RDW 14.7 H Plt Count 35 L* MPV 11.5 H Gran % 82.9 H Lymph % (Auto) 14.8 L [place] % (Auto) 2.2 Eos % (Auto) 0.1 L Baso % (Auto) 0.0 Gran # 9.60 H Lymph # (Auto) 1.7 Gordon # (Auto) 0.3 Eos # (Auto) 0.0 Baso # (Auto) 0.00 PT INR APTT pCO2 pO2 197 H HCO3 ABG pH ABG Total CO2 ABG O2 Saturation ABG O2 Content ABG Base Excess ABG Hemoglobin ABG Carboxyhemoglobin POC ABG HHb (Measured) ABG Methemoglobin ABG O2 Capacity ABG Potassium VBG pH 7.36 VBG pCO2 55.0 VBG HCO3 31.1 H VBG Total CO2 32.8 H VBG O2 Sat (Calc) 99.3 H VBG Base Excess 4.2 H VBG Potassium 4.2 Hgb O2 Saturation Sodium 153.0 H Chloride 120.0 H Glucose 77 Lactate 3.2 H FiO2 21.0 PEEP Pressure Support Potassium Carbon Dioxide Anion Gap BUN Creatinine Est GFR ( Amer) Est GFR (Non-Af Amer) POC Glucose (mg/dL) Random Glucose Calcium Total Bilirubin AST ALT Alkaline Phosphatase Total Protein Albumin Globulin Albumin/Globulin Ratio Arterial Blood Potassium Venous Blood Potassium 4.2 Urine Color Dark yellow Urine Appearance Cloudy Urine pH 7.0 Ur Specific [place] 1.020 Urine Protein 100 H Urine Glucose (UA) Negative Urine Ketones Negative Urine Blood Large H Urine Nitrate Negative Urine Bilirubin Negative Urine Urobilinogen 0.2 Ur Leukocyte Esterase Moderate H Urine RBC Tntc Urine WBC 2 - 5 Ur Epithelial Cells 6 - 8 Urine Bacteria Many Urine Other Mucus Blood Type Antibody Screen Antibody Identification Crossmatch BBK History Checked 10/13/17 10/13/17 10/13/17 00:06 01:36 03:19 WBC RBC Hgb Hct MCV MCH MCHC RDW Plt Count MPV Gran % Lymph % (Auto) Gordon % (Auto) Eos % (Auto) Baso % (Auto) Gran # Lymph # (Auto) Gordon # (Auto) Eos # (Auto) Baso # (Auto) PT INR APTT pCO2 pO2 HCO3 ABG pH ABG Total CO2 ABG O2 Saturation ABG O2 Content ABG Base Excess ABG Hemoglobin ABG Carboxyhemoglobin POC ABG HHb (Measured) ABG Methemoglobin ABG O2 Capacity ABG Potassium VBG pH VBG pCO2 VBG HCO3 VBG Total CO2 VBG O2 Sat (Calc) VBG Base Excess VBG Potassium Hgb O2 Saturation Sodium Chloride Glucose Lactate FiO2 PEEP Pressure Support Potassium Carbon Dioxide Anion Gap BUN Creatinine Est GFR ( Amer) Est GFR (Non-Af Amer) POC Glucose (mg/dL) 45 L 73 111 H Random Glucose Calcium Total Bilirubin AST ALT Alkaline Phosphatase Total Protein Albumin Globulin Albumin/Globulin Ratio Arterial Blood Potassium Venous Blood Potassium Urine Color Urine Appearance Urine pH Ur Specific [place] Urine Protein Urine Glucose (UA) Urine Ketones Urine Blood Urine Nitrate Urine Bilirubin Urine Urobilinogen Ur Leukocyte Esterase Urine RBC Urine WBC Ur Epithelial Cells Urine Bacteria Urine Other Blood Type Antibody Screen Antibody Identification Crossmatch BBK History Checked 10/13/17 10/13/17 10/13/17 03:59 05:01 06:20 WBC RBC Hgb Hct MCV MCH MCHC RDW Plt Count MPV Gran % Lymph % (Auto) Gordon % (Auto) Eos % (Auto) Baso % (Auto) Gran # Lymph # (Auto) Gordon # (Auto) Eos # (Auto) Baso # (Auto) PT INR APTT pCO2 pO2 165 H HCO3 ABG pH ABG Total CO2 ABG O2 Saturation ABG O2 Content ABG Base Excess ABG Hemoglobin ABG Carboxyhemoglobin POC ABG HHb (Measured) ABG Methemoglobin ABG O2 Capacity ABG Potassium VBG pH 7.37 VBG pCO2 42.0 VBG HCO3 24.3 VBG Total CO2 25.6 VBG O2 Sat (Calc) 99.3 H VBG Base Excess -1.1 L VBG Potassium 5.1 Hgb O2 Saturation Sodium 146.0 Chloride 116.0 H Glucose 220 H Lactate 5.3 H* FiO2 21.0 PEEP Pressure Support Potassium Carbon Dioxide Anion Gap BUN Creatinine Est GFR ( Amer) Est GFR (Non-Af Amer) POC Glucose (mg/dL) 125 H 129 H Random Glucose Calcium Total Bilirubin AST ALT Alkaline Phosphatase Total Protein Albumin Globulin Albumin/Globulin Ratio Arterial Blood Potassium Venous Blood Potassium 5.1 Urine Color Urine Appearance Urine pH Ur Specific [place] Urine Protein Urine Glucose (UA) Urine Ketones Urine Blood Urine Nitrate Urine Bilirubin Urine Urobilinogen Ur Leukocyte Esterase Urine RBC Urine WBC Ur Epithelial Cells Urine Bacteria Urine Other Blood Type Antibody Screen Antibody Identification Crossmatch BBK History Checked 10/13/17 10/13/17 10/13/17 06:40 06:40 06:40 WBC 10.5 RBC 3.00 L Hgb 8.5 L Hct 27.8 L MCV 92.7 MCH 28.3 MCHC 30.6 L RDW 14.8 H Plt Count 36 L* MPV Gran % 88.0 H Lymph % (Auto) 5.6 L [place] % (Auto) 6.4 H Eos % (Auto) 0.0 L Baso % (Auto) 0.0 Gran # 9.28 H Lymph # (Auto) 0.6 L Gordon # (Auto) 0.7 H Eos # (Auto) 0.0 Baso # (Auto) 0.00 PT 25.7 H INR 2.20 H APTT 31.7 pCO2 pO2 HCO3 ABG pH ABG Total CO2 ABG O2 Saturation ABG O2 Content ABG Base Excess ABG Hemoglobin ABG Carboxyhemoglobin POC ABG HHb (Measured) ABG Methemoglobin ABG O2 Capacity ABG Potassium VBG pH VBG pCO2 VBG HCO3 VBG Total CO2 VBG O2 Sat (Calc) VBG Base Excess VBG Potassium Hgb O2 Saturation Sodium 151 H Chloride 112 H Glucose Lactate FiO2 PEEP Pressure Support Potassium 5.0 Carbon Dioxide 24 Anion Gap 20 BUN 87 H Creatinine 3.6 H Est GFR ( Amer) 15 Est GFR (Non-Af Amer) 12 POC Glucose (mg/dL) Random Glucose 196 H Calcium 7.1 L Total Bilirubin 0.9 AST 1458 H ALT 746 H Alkaline Phosphatase 96 Total Protein 4.8 L Albumin 2.2 L Globulin 2.5 Albumin/Globulin Ratio 0.9 L Arterial Blood Potassium Venous Blood Potassium Urine Color Urine Appearance Urine pH Ur Specific [place] Urine Protein Urine Glucose (UA) Urine Ketones Urine Blood Urine Nitrate Urine Bilirubin Urine Urobilinogen Ur Leukocyte Esterase Urine RBC Urine WBC Ur Epithelial Cells Urine Bacteria Urine Other Blood Type Antibody Screen Antibody Identification Crossmatch BBK History Checked 10/13/17 10/13/17 10/13/17 07:34 08:32 09:15 WBC RBC Hgb Hct MCV MCH MCHC RDW Plt Count MPV Gran % Lymph % (Auto) [place] % (Auto) Eos % (Auto) Baso % (Auto) Gran # Lymph # (Auto) Gordon # (Auto) Eos # (Auto) Baso # (Auto) PT INR APTT pCO2 35 pO2 150.0 H HCO3 20.7 L ABG pH 7.38 ABG Total CO2 21.8 L ABG O2 Saturation 98.8 H ABG O2 Content ABG Base Excess -3.8 L ABG Hemoglobin ABG Carboxyhemoglobin POC ABG HHb (Measured) ABG Methemoglobin ABG O2 Capacity ABG Potassium 4.3 VBG pH VBG pCO2 VBG HCO3 VBG Total CO2 VBG O2 Sat (Calc) VBG Base Excess VBG Potassium Hgb O2 Saturation Sodium 147.0 Chloride 118.0 H Glucose 187 H Lactate 4.5 H* FiO2 60.0 PEEP 5 Pressure Support 5 Potassium Carbon Dioxide Anion Gap BUN Creatinine Est GFR ( Amer) Est GFR (Non-Af Amer) POC Glucose (mg/dL) 78 93 Random Glucose Calcium Total Bilirubin AST ALT Alkaline Phosphatase Total Protein Albumin Globulin Albumin/Globulin Ratio Arterial Blood Potassium 4.3 Venous Blood Potassium Urine Color Urine Appearance Urine pH Ur Specific [place] Urine Protein Urine Glucose (UA) Urine Ketones Urine Blood Urine Nitrate Urine Bilirubin Urine Urobilinogen Ur Leukocyte Esterase Urine RBC Urine WBC Ur Epithelial Cells Urine Bacteria Urine Other Blood Type Antibody Screen Antibody Identification Crossmatch BBK History Checked 10/13/17 10/13/17 10/13/17 09:24 09:55 10:15 WBC RBC Hgb Hct MCV MCH MCHC RDW Plt Count MPV Gran % Lymph % (Auto) Gordon % (Auto) Eos % (Auto) Baso % (Auto) Gran # Lymph # (Auto) Gordon # (Auto) Eos # (Auto) Baso # (Auto) PT INR APTT pCO2 pO2 49 HCO3 ABG pH ABG Total CO2 ABG O2 Saturation ABG O2 Content ABG Base Excess ABG Hemoglobin ABG Carboxyhemoglobin POC ABG HHb (Measured) ABG Methemoglobin ABG O2 Capacity ABG Potassium VBG pH 7.34 VBG pCO2 44.0 VBG HCO3 23.7 VBG Total CO2 25.1 VBG O2 Sat (Calc) 89.7 H VBG Base Excess -2.2 L VBG Potassium 5.1 Hgb O2 Saturation Sodium 145.0 Chloride 113.0 H Glucose 220 H Lactate 5.9 H* FiO2 21.0 PEEP Pressure Support Potassium Carbon Dioxide Anion Gap BUN Creatinine Est GFR ( Amer) Est GFR (Non-Af Amer) POC Glucose (mg/dL) 130 H 123 H Random Glucose Calcium Total Bilirubin AST ALT Alkaline Phosphatase Total Protein Albumin Globulin Albumin/Globulin Ratio Arterial Blood Potassium Venous Blood Potassium 5.1 Urine Color Urine Appearance Urine pH Ur Specific [place] Urine Protein Urine Glucose (UA) Urine Ketones Urine Blood Urine Nitrate Urine Bilirubin Urine Urobilinogen Ur Leukocyte Esterase Urine RBC Urine WBC Ur Epithelial Cells Urine Bacteria Urine Other Blood Type Antibody Screen Antibody Identification Crossmatch BBK History Checked 10/13/17 10/13/17 10/13/17 11:09 12:09 13:15 WBC RBC Hgb Hct MCV MCH MCHC RDW Plt Count MPV Gran % Lymph % (Auto) Gordon % (Auto) Eos % (Auto) Baso % (Auto) Gran # Lymph # (Auto) Gordon # (Auto) Eos # (Auto) Baso # (Auto) PT INR APTT pCO2 pO2 HCO3 ABG pH ABG Total CO2 ABG O2 Saturation ABG O2 Content ABG Base Excess ABG Hemoglobin ABG Carboxyhemoglobin POC ABG HHb (Measured) ABG Methemoglobin ABG O2 Capacity ABG Potassium VBG pH VBG pCO2 VBG HCO3 VBG Total CO2 VBG O2 Sat (Calc) VBG Base Excess VBG Potassium Hgb O2 Saturation Sodium Chloride Glucose Lactate FiO2 PEEP Pressure Support Potassium Carbon Dioxide Anion Gap BUN Creatinine Est GFR ( Amer) Est GFR (Non-Af Amer) POC Glucose (mg/dL) 127 H 170 H 144 H Random Glucose Calcium Total Bilirubin AST ALT Alkaline Phosphatase Total Protein Albumin Globulin Albumin/Globulin Ratio Arterial Blood Potassium Venous Blood Potassium Urine Color Urine Appearance Urine pH Ur Specific [place] Urine Protein Urine Glucose (UA) Urine Ketones Urine Blood Urine Nitrate Urine Bilirubin Urine Urobilinogen Ur Leukocyte Esterase Urine RBC Urine WBC Ur Epithelial Cells Urine Bacteria Urine Other Blood Type Antibody Screen Antibody Identification Crossmatch BBK History Checked 10/13/17 14:00 WBC RBC Hgb Hct MCV MCH MCHC RDW Plt Count MPV Gran % Lymph % (Auto) Gordon % (Auto) Eos % (Auto) Baso % (Auto) Gran # Lymph # (Auto) Gordon # (Auto) Eos # (Auto) Baso # (Auto) PT INR APTT pCO2 35 pO2 59.0 L HCO3 20.7 L ABG pH 7.38 ABG Total CO2 21.8 L ABG O2 Saturation 94.7 L ABG O2 Content 10.9 L ABG Base Excess -4.0 L ABG Hemoglobin 8.3 L ABG Carboxyhemoglobin 1.5 POC ABG HHb (Measured) 5.2 H ABG Methemoglobin 0.7 ABG O2 Capacity 11.5 L ABG Potassium VBG pH VBG pCO2 VBG HCO3 VBG Total CO2 VBG O2 Sat (Calc) VBG Base Excess VBG Potassium Hgb O2 Saturation 92.7 L Sodium Chloride Glucose Lactate FiO2 40.0 PEEP Pressure Support Potassium Carbon Dioxide Anion Gap BUN Creatinine Est GFR ( Amer) Est GFR (Non-Af Amer) POC Glucose (mg/dL) Random Glucose Calcium Total Bilirubin AST ALT Alkaline Phosphatase Total Protein Albumin Globulin Albumin/Globulin Ratio Arterial Blood Potassium Venous Blood Potassium Urine Color Urine Appearance Urine pH Ur Specific [place] Urine Protein Urine Glucose (UA) Urine Ketones Urine Blood Urine Nitrate Urine Bilirubin Urine Urobilinogen Ur Leukocyte Esterase Urine RBC Urine WBC Ur Epithelial Cells Urine Bacteria Urine Other Blood Type Antibody Screen Antibody Identification Crossmatch BBK History Checked Attending/Attestation - Attestation I have personally seen and examined this patient.: Yes I have fully participated in the care of the patient.: Yes I have reviewed all pertinent clinical information: Yes Notes (Text): 10/13/17 16:[address] Matias note
--- NOTE | 2017-10-13 08:16 | PN ---
DATE: 10/12/2017 SUBJECTIVE: The patient is seen lying in bed in the ICU. She is unresponsive. She is on sedation. Multiple family members are at bedside. She has been tapered off the Levophed. Her vasopressin is being tapered down. Her blood pressure is better. But she remains unresponsive. She is on minimal sedation. PHYSICAL EXAMINATION: GENERAL: Elderly lady, lying in bed on mechanical ventilation, not responsive. VITAL SIGNS: Blood pressure 117/51, heart rate 122, respiratory rate 22, temperature 96. HEENT: Normocephalic, atraumatic, positive icterus, positive pallor, pupils nonreactive. NECK: Supple, no JVD. LUNGS: Bilateral equal air entry, bilateral equal expansion, no rales appreciated anteriorly. CARDIAC: S1 and S2, regular rate and rhythm, no murmur, no rub. ABDOMEN: Soft, nondistended, bowel sounds sluggish, nontender. EXTREMITIES: No lower extremity edema. INTAKE AND OUTPUT: 6210/475. LABORATORY DATA: WBC 14.4, hemoglobin 8.9, hematocrit 30, platelets 224, polys 86%, lymphs 13%. Sodium 161, potassium 5.1, chloride 119, CO2 of 21, BUN 77, creatinine 3.3, glucose 524, calcium 7.2, AST 2286, ALT 744, albumin 2.1, corrected calcium is 8.6. Cultures, no growth so far. Chest x-ray: Some improvement in the bilateral infiltrates. CURRENT MEDICATIONS: Doxycycline 100 every 12, DuoNeb, Hectorol 1 mcg IV daily, insulin IV 4 units per hour, meropenem 500 daily, Pepcid, half-normal saline at 100, Solu-Cortef, vasopressin. ASSESSMENT: 1. Multiorgan dysfunction syndrome. 2. Septic shock, hypotension, tachycardia, acute renal failure, shock liver. 3. Pneumonia. 4. Respiratory failure. 5. Encephalopathy. 6. Severe hyperglycemia. 7. Hypernatremia, improved. 8. Hyperkalemia, improved. 9. Metabolic acidosis, corrected. PLAN: 1. Agree with discontinuation of bicarb. 2. ? Discontinue IV fluids. 3. Continue empiric antibiotics to cover for healthcare-associated pneumonia. 4. Underlying chronic kidney disease stage 3, suspect. 5. Prognosis remains grim. 6. No plans for renal replacement therapy at this time. 7. Case discussed at length with family members at bedside. Case discussed with ICU attending at length. Case discussed with residents. More than 35 minutes spent in the care of this critically ill patient. Brittanie Turk MD cc:
[2017-10-13] MEDS ORDERED: Lactated Ringer's 1,000 ML IV SCH (08:45)
--- NOTE | 2017-10-13 09:12 | RAD ---
HISTORY: intubated COMPARISON: No prior. FINDINGS: LUNGS: Stable lower lobe infiltrates. PLEURA: No significant pleural effusion identified, no pneumothorax apparent. CARDIOVASCULAR: Normal. OSSEOUS STRUCTURES: No significant abnormalities. VISUALIZED UPPER ABDOMEN: Normal. OTHER FINDINGS: Endotracheal tube tip now at the level of the clavicles. Nasogastric tube position unchanged. IMPRESSION: Endotracheal tube position has changed, the tip is now at the level of the clavicles. Stable position nasogastric tube. No change in bilateral lower lobe infiltrates.
[2017-10-13 09:22] LABS: ARTERIAL BLOOD GAS HCO3 20.7 mmol/L (21-28); ARTERIAL BLOOD GAS O2 SAT 98.8 % (95-98); ARTERIAL BLOOD GAS PCO2 35 mm/Hg (35-45); ARTERIAL BLOOD GAS PH 7.38 (7.35-7.45); ARTERIAL BLOOD GAS TCO2 21.8 mmol.L (22-28)
[2017-10-13] MEDS: Sodium Chloride 0.45% 1,000 ML IV SCH ×2 (09:30→18:54)
[2017-10-13] MEDS: Meropenem 500 MG in Sodium Chloride 0.9% 50 ML IVPB SCH (09:52)
[2017-10-13] MEDS: Doxercalciferol 4 mcg/2 ml Inj IV SCH (10:26)
[2017-10-13 10:33] LABS: VENOUS BLOOD GAS BASE EXCESS -2.2 mmol/L (0.0-2.0); VENOUS BLOOD GAS PO2 49 mm/Hg (30-55); VENOUS BLOOD PH 7.34 (7.32-7.43)
--- NOTE | 2017-10-13 12:30 | RAD ---
HISTORY: OGT placement COMPARISON: No prior. FINDINGS: LUNGS: Infiltrate at the left lung base PLEURA: No significant pleural effusion identified, no pneumothorax apparent. CARDIOVASCULAR: Normal. OSSEOUS STRUCTURES: No significant abnormalities. VISUALIZED UPPER ABDOMEN: Normal. OTHER FINDINGS: None. IMPRESSION: Nasogastric tube in satisfactory position
--- NOTE | 2017-10-13 12:38 | CP.PCM.PN ---
Subjective - Date & Time of Evaluation Date of Evaluation: 10/13/17 Time of Evaluation: 09:45 - Subjective Subjective: Patient has been extubated since yesterday but still somewhat lethargic, does not follow commands but localizes to pain. No fevers, no diarrhea. Objective - Vital Signs/Intake and Output Vital Signs (last 24 hours): Temp Pulse Resp BP Pulse Ox 98.4 F 101 H 17 118/57 L 100 10/13/17 04:00 10/13/17 06:00 10/12/17 21:15 10/13/17 06:41 10/13/17 05:20 Intake and Output: 10/13/17 10/13/17 06:59 18:59 Intake Total 1750 12.9 Output Total 220 Balance 1530 12.9 - Medications Medications: Current Medications Albuterol/Ipratropium (Duoneb 3 Mg/0.5 Mg (3 Ml) Ud) 3 ml IH [id number] JONNY Last Admin: 10/13/17 07:49 Dose: 3 ml Albuterol/Ipratropium (Duoneb 3 Mg/0.5 Mg (3 Ml) Ud) 3 ml IH Q2H PRN PRN Reason: Shortness of Breath Doxercalciferol (Hectorol) 1 mcg IV DAILY [facility] Last Admin: 10/12/17 13:53 Dose: 1 mcg Famotidine (Pepcid) 10 mg IVP DAILY [facility] Last Admin: 10/12/17 13:48 Dose: 10 mg Hydrocortisone Sodium Succinate (Solu-Cortef) 50 mg IVP DAILY [facility] Vasopressin 20 units/ Dextrose 101 mls @ 9.09 mls/hr IV .[id number] JONNY; 0.03 U/MIN PRN Reason: Protocol Last Admin: 10/13/17 06:41 Dose: 9.09 mls/hr Fentanyl Citrate (Fentanyl Citrate/Sodium Chloride 1 Mg/100 Ml) 1,000 mcg in 100 mls @ 2 mls/hr IV .Q24H PRN; Protocol; 20 MCG/HR PRN Reason: TITRATE PER MD ORDER Last Titration: 10/13/17 08:39 Dose: 0 mcg/hr, 0 mls/hr Doxycycline Hyclate 100 mg/ (Sodium Chloride) 100 mls @ 100 mls/hr IVPB Q12 JONNY PRN Reason: Protocol Last Admin: 10/12/17 21:43 Dose: 100 mls/hr Insulin Human Regular 100 (units/ Sodium Chloride) 100 mls @ 4 mls/hr IV .Q24H PRN; Protocol; 4 UNITS/HR PRN Reason: TITRATE PER MD ORDER Last Admin: 10/12/17 23:06 Dose: 4 units/hr, 4 mls/hr Meropenem 500 mg/ Sodium (Chloride) 50 mls @ 100 mls/hr IVPB DAILY JONNY PRN Reason: Protocol Last Admin: 10/12/17 09:35 Dose: 100 mls/hr Lactated Ringer's (Lactated Ringer's) 1,000 mls @ 150 mls/hr IV .Q6H40M [facility] Insulin Human Regular (Humulin R Med) 0 units SC ACHS JONNY PRN Reason: Protocol Last Admin: 10/13/17 07:42 Dose: Not Given Mupirocin (Bactroban Ointment) 0 gm NS BID JONNY Stop: 10/17/17 10:01 Last Admin: 10/12/17 18:17 Dose: 1 applic - Labs Labs: 10/13/17 06:40 10/13/17 06:40 PT 25.7 SECONDS (9.4-12.5) H 10/13/17 06:40 INR 2.20 (0.93-1.08) H 10/13/17 06:40 APTT 31.7 Seconds (25.1-36.5) 10/13/17 06:40 - Constitutional Appears: Chronically Ill - Head Exam Head Exam: NORMAL INSPECTION - Neck Exam Neck Exam: absent: Meningismus - Respiratory Exam Respiratory Exam: Decreased Breath Sounds - Cardiovascular Exam Cardiovascular Exam: +S1, +S2 - GI/Abdominal Exam GI & Abdominal Exam: Soft. absent: Tenderness Assessment and Plan - Assessment and Plan (Free Text) Plan: Assessment Consider severe sepsis S/P VDRF and acute encephalopathy and acute on chronic renal failure due to left lower lobe HCAP, now extubated HTN S/P right hip replacement dementia Plan continue Merrem and Doxycycline day 2 pending urine Legionella Ag and rapid Flu test; cultures have been negative and trach aspirate cultures are mixed luciano overall prognosis is poor will continue to monitor clinically
--- NOTE | 2017-10-13 13:08 | PN ---
DATE: 10/13/2017 SUBJECTIVE: The patient is 77 years old, who came in with fever, was hypernatremic, dehydrated and had upper GI bleed and had cardiac arrest, so was intubated, was successfully extubated today. No more upper GI bleed. The patient has profound dementia. She is not responsive. PHYSICAL EXAMINATION: VITAL SIGNS: She is afebrile, pulse 100, respirations 23, blood pressure 126/47. LUNGS: Bilateral fair airflow. No rhonchi or crackle. HEART: S1 and S2 audible. ABDOMEN: Soft. Nontender. No rebound. No guarding. NEUROLOGIC: She is minimally responsive. LABORATORY EXAM: WBC is 10.5, hemoglobin 8.5, hematocrit 27.8, platelet 236. PT 25.7, INR 2.2. Chemistry: Sodium 151, potassium 5, chloride 112, CO2 of 24, BUN 87, creatinine 3.6, blood sugar of 93. LFTs: AST 1458, ALT 746. ASSESSMENT: 1. Status post hypernatremia and acute renal failure. 2. Status post cardiac arrest. 3. Status post respiratory failure and today was extubated. She is off of pressors. 4. Upper gastrointestinal bleed. 5. Dementia. 6. Anemia. 7. Electrolyte imbalance. PLAN: We will continue on IV fluids. She is on doxycycline. She is getting nebulizer treatment. Continue her on meropenem. I request Dr. Rust to evaluate. If the patient's mental status improved to baseline, she might need endoscopy. At this point, the patient is full code. Davon Marie MD
[2017-10-13 14:08] LABS: ARTERIAL BLOOD GAS HCO3 20.7 mmol/L (21-28); ARTERIAL BLOOD GAS HEMOGLOBIN 8.3 g/dL (11.7-17.4); ARTERIAL BLOOD GAS O2 CAPACITY 11.5 mL/dl (16-24); ARTERIAL BLOOD GAS O2 CONTENT 10.9 ML/dl (15-23); ARTERIAL BLOOD GAS O2 SAT 94.7 % (95-98); ARTERIAL BLOOD GAS PCO2 35 mm/Hg (35-45); ARTERIAL BLOOD GAS PH 7.38 (7.35-7.45); ARTERIAL BLOOD GAS TCO2 21.8 mmol.L (22-28)
--- NOTE | 2017-10-13 14:18 | PN ---
DATE: 10/13/2017 SUBJECTIVE: Patient is seen and examined at bedside. She was on Fentanyl, which is off now for sedation vacation. She tolerated pressure support trial, 5/5 with FiO2 of 6%. Her rapid shallow breathing index of 60. Her tidal volume varies between 400 and 450. Respiratory rate at around 17 and varies between 17 and 20. End-tidal CO2 on the monitor 34. Patient is off of Levophed and vasopressin. OBJECTIVE: VITAL SIGNS: Blood pressure 123/62, heart rate 100, oxygen saturation 100% (FiO2 60%), respiratory rate on the monitor 17. Patient is n.p.o. in anticipation of extubation if passed pressure support trial. HEENT: Head and neck atraumatic. LUNGS: Clear to auscultation bilaterally. HEART: Regular rate and rhythm. S1, S2 normal. ABDOMEN: Soft, nontender, nondistended. MUSCULOSKELETAL: No C/C/E. NEUROLOGIC: Patient opens her eyes on command; however, she has a baseline severe dementia. SKIN: Moist. PSYCHIATRIC: Patient probably under residual influence of sedatives and also has baseline severe dementia. LABORATORY DATA: WBC 10.5, hemoglobin 8.5, platelet count 36. Sodium 151, potassium 5, chloride 112 (half normal saline is switched to lactated Ringer) BUN 87, creatinine 3.6, glucose 196, AST 1458, which is down from 2286. ALT is 746. to be continued Marcell Matias MD [employer]TD[employer]ooter
[2017-10-13] MEDS ORDERED: Nicardipine 20 MG/200 ML 20 MG/200 ML BAG IV PRN (15:08)
[2017-10-13] MEDS ORDERED: Sodium Chloride 0.45% 1,000 ML IV SCH (21:46)
[2017-10-14] MEDS: Albuterol-Ipratrop 3 mg / 0.5 (3 ml) UD IH SCH ×4 (01:33→20:55)
--- NOTE | 2017-10-14 02:50 | PN ---
DATE: 10/13/2017 SUBJECTIVE: The patient is seen lying in bed. She is unresponsive. She remains on mechanical ventilation. Multiple family members are at bedside. She is off pressor support at this time. She remains on insulin drip. She remains on IV antibiotics. PHYSICAL EXAMINATION: GENERAL: Thinly built elderly lady, lying in bed, on mechanical ventilation. Not responding. VITAL SIGNS: Blood pressure 126/47, heart rate 94, respiratory rate 20, temperature 99.9. HEENT: Normocephalic, atraumatic, pupils not reactive to light, chemosis, icterus. NECK: Supple, no JVD. LUNGS: Bilateral equal entry, bilateral equal expansion, no rales appreciated anteriorly. CARDIAC: S1 and S2, regular rate and rhythm. No murmur, no rub. ABDOMEN: Soft, nondistended, nontender, bowel sounds sluggish. EXTREMITIES: 2+ pitting edema of the lower extremities. INTAKE AND OUTPUT: 1750/220. LABORATORY DATA: WBC 10.5, hemoglobin 8.5, hematocrit 28, platelets 36; pH 7.38, pO2 of 59, pCO2 of 35. Sodium 151, potassium 5, chloride 112, CO2 of 24, BUN 87, creatinine 3.6, glucose 196 and calcium 7.1. Albumin 2.2. AST 1458, ALT 746. Globuliin 2.5. Sputum culture, staph aureus. Chest x-ray, no significant pleural effusion, no pneumothorax. CURRENT MEDICATIONS: Doxycycline 100 every 12 hours, DuoNeb, Hectorol 1 mcg daily, insulin, meropenem 500 mg daily, Pepcid, half-normal saline at 100, Solu-Cortef and calcium gluconate 1 g given. ASSESSMENT AND PLAN: 1. Systemic inflammatory response syndrome. 2. Multiorgan dysfunction. 3. Respiratory failure. 4. Shock liver. 5. Acute kidney injury, oligoanuric acute kidney injury superimposed on chronic kidney disease stage III. 6. Possible pneumonia. 7. Coagulopathy. 8. Thrombocytopenia ? disseminated intravascular coagulation. PLAN: 1. Patient remains critically ill. Renal function is deteriorating. Liver numbers are deteriorating. 2. Hemodynamically slightly better. Blood pressure is better. She is not on pressor support. 3. Continue antibiotics as per ID recommendations. 4. Dose all antibiotics for creatinine clearance 10 to 30 mL/minute. 5. Continue ventilatory support. 6. Change IV fluids to maintenance. 7. Discussed with the family at bedside at length, discussed with representative government relations, discussed with ICU staff. More than 35 minutes spent in the care of this critically ill patient. Brittanie Turk MD YONNY
[2017-10-14 05:56] LABS: ARTERIAL BLOOD GAS O2 SAT 93.7 % (95-98); ARTERIAL BLOOD GAS PCO2 25 mm/Hg (35-45); ARTERIAL BLOOD GAS PH 7.44 (7.35-7.45); ARTERIAL BLOOD GAS TCO2 17.8 mmol.L (22-28)
[2017-10-14 07:13] LABS: EOS % 0.1 % (1.5-5.0); GRAN # 8.71 (1.4-6.5); GRAN % 76.7 % (50.0-68.0); HEMOGLOBIN 8.6 g/dL (12.0-16.0); LYMPH # 1.9 (1.2-3.4); LYMPH % 16.7 % (22.0-35.0); MEAN CELL VOLUME 88.7 fl (80.0-105.0); MEAN CORPUSCULAR HEMOGLOBIN 27.8 pg (25.0-35.0); MEAN CORPUSCULAR HGB CONC 31.4 g/dl (31.0-37.0); MONO # 0.7 (0.1-0.6); MONO % 6.5 % (1.0-6.0); RBC 3.09 10^6/uL (3.5-6.1); RED CELL DISTRIBUTION WIDTH 14.5 % (11.5-14.5); WHITE BLOOD COUNT 11.4 10^3/ul (4.5-11.0)
[2017-10-14 07:18] LABS: PLATELET COUNT 26 10^3/uL (120.0-450.0)
[2017-10-14 07:33] LABS: INR 2.13 (0.93-1.08); PROTHROMBIN TIME 24.9 SECONDS (9.4-12.5)
[2017-10-14 07:42] LABS: PARTIAL THROMBOPLASTIN TIME 31.2 Seconds (25.1-36.5)
[2017-10-14 07:46] LABS: ALB/GLOB RATIO 0.9 (1.1-1.8); ALBUMIN 2.2 g/dL (3.0-4.8)
[2017-10-14 07:50] LABS: CALCIUM 6.6 mg/dL (8.4-10.5)
[2017-10-14 08:11] LABS: PLATELET ESTIMATE LOW (NORMAL)
[2017-10-14] MEDS ORDERED: Vancomycin 2 GM in Sodium Chloride 0.9% 500 ML IVPB ONE (08:29)
[2017-10-14] MEDS: Insulin Reg-MEDIUM-Coverage SC SCH ×3 (09:07→22:41)
--- NOTE | 2017-10-14 09:16 | RAD ---
HISTORY: intubated COMPARISON: Yesterday FINDINGS: LUNGS: There is mild increase in hazy alveolar density at the right lung base. This may be related to the obliquity of the radiograph. Very small right effusion is not excluded although this may also be related to obliquity of the radiograph. PLEURA: No pneumothorax. Minimal left pleural fluid is not excluded. CARDIOVASCULAR: Heart is unchanged in size. No appreciable CHF is seen. OSSEOUS STRUCTURES: No significant abnormalities. VISUALIZED UPPER ABDOMEN: There is an NG tube identified within the stomach. This is unchanged. Surgical clips are seen in the right upper quadrant. OTHER FINDINGS: None. IMPRESSION: Mild increase in hazy density overlying the right lung field which may be related to obliquity of the patient and radiograph. Mild amount of increased subsegmental atelectasis or small right pleural effusion is not excluded. NG tube remains in the stomach.
[2017-10-14 09:30] LABS: VENOUS BLOOD GAS BASE EXCESS -5.6 mmol/L (0.0-2.0); VENOUS BLOOD GAS PO2 96 mm/Hg (30-55); VENOUS BLOOD PH 7.35 (7.32-7.43)
[2017-10-14] MEDS: Doxercalciferol 4 mcg/2 ml Inj IV SCH (10:15)
[2017-10-14] MEDS: Meropenem 500 MG in Sodium Chloride 0.9% 50 ML IVPB SCH (10:21)
--- NOTE | 2017-10-14 10:33 | CP.PCM.PN ---
Subjective - Date & Time of Evaluation Date of Evaluation: 10/14/17 Time of Evaluation: 09:50 - Subjective Subjective: Patient remains extubated, no fevers, not in distress but still somewhat lethargic but easily arousable. No diarrhea, no vomiting. Objective - Vital Signs/Intake and Output Vital Signs (last 24 hours): Temp Pulse Resp BP Pulse Ox 98.3 F 101 H 25 H 139/73 100 10/14/17 04:00 10/14/17 08:00 10/14/17 08:00 10/14/17 08:00 10/14/17 08:00 Intake and Output: 10/14/17 10/14/17 06:59 18:59 Intake Total 2600 Output Total 150 Balance 2450 - Medications Medications: Current Medications Albuterol/Ipratropium (Duoneb 3 Mg/0.5 Mg (3 Ml) Ud) 3 ml IH [id number] [facility] Last Admin: 10/14/17 01:33 Dose: 3 ml Albuterol/Ipratropium (Duoneb 3 Mg/0.5 Mg (3 Ml) Ud) 3 ml IH Q2H PRN PRN Reason: Shortness of Breath Doxercalciferol (Hectorol) 1 mcg IV DAILY [facility] Last Admin: 10/13/17 10:26 Dose: 1 mcg Famotidine (Pepcid) 10 mg IVP DAILY [facility] Last Admin: 10/13/17 10:40 Dose: 10 mg Hydrocortisone Sodium Succinate (Solu-Cortef) 50 mg IVP DAILY [facility] Last Admin: 10/13/17 09:53 Dose: 50 mg Doxycycline Hyclate 100 mg/ (Sodium Chloride) 100 mls @ 100 mls/hr IVPB Q12 JONNY PRN Reason: Protocol Last Admin: 10/13/17 23:00 Dose: 100 mls/hr Insulin Human Regular 100 (units/ Sodium Chloride) 100 mls @ 4 mls/hr IV .Q24H PRN; Protocol; 4 UNITS/HR PRN Reason: TITRATE PER MD ORDER Last Admin: 10/12/17 23:06 Dose: 4 units/hr, 4 mls/hr Meropenem 500 mg/ Sodium (Chloride) 50 mls @ 100 mls/hr IVPB DAILY JONNY PRN Reason: Protocol Last Admin: 10/13/17 09:52 Dose: 100 mls/hr Sodium Chloride (Sodium Chloride 0.45%) 1,000 mls @ 60 mls/hr IV .[id number] [facility] Last Admin: 10/13/17 22:00 Dose: 60 mls/hr Calcium Gluconate 2,000 mg/ (Sodium Chloride) 120 mls @ 110 mls/hr IVPB ONCE ONE Stop: 10/14/17 08:57 Vancomycin HCl 2 gm/ Sodium (Chloride) 500 mls @ 170 mls/hr IVPB ONCE ONE PRN Reason: Protocol Stop: 10/14/17 11:25 Insulin Human Regular (Humulin R Med) 0 units SC ACHS JONNY PRN Reason: Protocol Last Admin: 10/13/17 22:00 Dose: Not Given Mupirocin (Bactroban Ointment) 0 gm NS BID [facility] Stop: 10/17/17 10:01 Last Admin: 10/13/17 17:21 Dose: 1 applic - Labs Labs: 10/14/17 06:40 10/14/17 06:40 PT 24.9 SECONDS (9.4-12.5) H 10/14/17 06:40 INR 2.13 (0.93-1.08) H 10/14/17 06:40 APTT 31.2 Seconds (25.1-36.5) 10/14/17 06:40 - Constitutional Appears: Non-toxic, Chronically Ill - Head Exam Head Exam: NORMAL INSPECTION - Neck Exam Neck Exam: absent: Meningismus - Respiratory Exam Respiratory Exam: Decreased Breath Sounds - Cardiovascular Exam Cardiovascular Exam: +S1, +S2 - GI/Abdominal Exam GI & Abdominal Exam: Soft. absent: Tenderness Assessment and Plan - Assessment and Plan (Free Text) Plan: Assessment Consider severe sepsis S/P VDRF and acute encephalopathy and acute on chronic renal failure due to left lower lobe HCAP, now extubated, with Staph aureus and gram negative bacilli in the sputum HTN S/P right hip replacement dementia Plan continue Merrem and Doxycycline day 3 and gave another dose of IV Vancomycin pending identification of the gram negative bacilli in the sputum and sensitivities of the Staph aureus in the sputum; still awaiting urine Legionella Ag and rapid Flu test overall prognosis is poor will continue to monitor clinically
--- NOTE | 2017-10-14 12:41 | CP.PCM.CON ---
History of Present Illness - History of Present Illness History of Present Illness: Seen and examined at the bedside earlier this morning, chart reviewed. Request for GI consult is for upper GI bleed. HPI: This is a 77-year-old female with a past medical history of dementia, history of rectal lesion with hypertension came from [facility] for lethargy and found to have a fever. The patient was experiencing constipation and patient given laxative. Patient noted to have low pulse ox presented to the emergency room for further evaluation. CT scan reviewed from 10/10/17. Findings were noted. Stomach and bowel reveal stool in colon, no bowel obstruction or fecal impaction. No evidence of significant acute inflammatory process in abdomen or pelvis. Suspicion for pneumonia left lower base. Patient status post extubation yesterday. Currently lethargic and not verbally responsive. History obtained from medical chart and medical team. No current reports of overt GI bleed. In review of records patient had on 08/01/2017 flexsigmoidoscopy found to have a polypoid vascular lesion with bleeding in the rectum with hemoclips placed. Patient recommenede surgical evaluation, unknown if patient went for surgical evauation. Past medical history: dementia, hypertension, history of rectal mass, history of rectal bleeding/history of hemorrhoids. Allergies: No known drug allergies Social history: No history of smoking/EtOH/illicit drug use Surgical history: Right hip replacement Medications: Reviewed as per ADELITA Family history: Noncontributory at this time ROS: Unable to review systems with patient, lethargic and noncommunicative at this time see HPI. Past Patient History - Infectious Disease Hx of Infectious Diseases: None - Past Social History Smoking Status: Never Smoked - CARDIAC Hx Hypertension: Yes - PULMONARY Hx Respiratory Disorders: No - NEUROLOGICAL Hx Neurological Disorder: Yes Hx Dementia: Yes - RENAL Hx Chronic Kidney Disease: No - ENDOCRINE/METABOLIC Hx Endocrine Disorders: No - HEMATOLOGICAL/ONCOLOGICAL Hx Blood Disorders: No - INTEGUMENTARY Hx Dermatological Problems: No - MUSCULOSKELETAL/RHEUMATOLOGICAL Hx Musculoskeletal Disorders: Yes Hx Falls: Yes Hx Osteoporosis: Yes Hx Unsteady Gait: Yes - GASTROINTESTINAL Hx Gastrointestinal Disorders: No - GENITOURINARY/GYNECOLOGICAL Hx Genitourinary Disorders: No Hx Incontinence: Yes - PSYCHIATRIC Hx Psychophysiologic Disorder: No - SURGICAL HISTORY Hx Joint Replacement: Yes (R hip) - ANESTHESIA Hx Anesthesia: Yes Hx Anesthesia Reactions: No Hx Malignant Hyperthermia: No Meds Allergies/Adverse Reactions: Allergies Allergy/AdvReac Type Severity Reaction Status Date / Time No Known Allergies Allergy Unverified 07/29/17 02:26 - Medications Medications: Current Medications Albuterol/Ipratropium (Duoneb 3 Mg/0.5 Mg (3 Ml) Ud) 3 ml IH [id number] [facility] Last Admin: 10/14/17 08:32 Dose: 3 ml Albuterol/Ipratropium (Duoneb 3 Mg/0.5 Mg (3 Ml) Ud) 3 ml IH Q2H PRN PRN Reason: Shortness of Breath Doxercalciferol (Hectorol) 1 mcg IV DAILY [facility] Last Admin: 10/14/17 10:15 Dose: 1 mcg Famotidine (Pepcid) 10 mg IVP DAILY [facility] Last Admin: 10/14/17 10:14 Dose: 10 mg Hydrocortisone Sodium Succinate (Solu-Cortef) 50 mg IVP DAILY [facility] Last Admin: 10/14/17 10:13 Dose: 50 mg Doxycycline Hyclate 100 mg/ (Sodium Chloride) 100 mls @ 100 mls/hr IVPB Q12 JONNY PRN Reason: Protocol Last Admin: 10/14/17 10:21 Dose: 100 mls/hr Insulin Human Regular 100 (units/ Sodium Chloride) 100 mls @ 4 mls/hr IV .Q24H PRN; Protocol; 4 UNITS/HR PRN Reason: TITRATE PER MD ORDER Last Admin: 10/12/17 23:06 Dose: 4 units/hr, 4 mls/hr Meropenem 500 mg/ Sodium (Chloride) 50 mls @ 100 mls/hr IVPB DAILY JONNY PRN Reason: Protocol Last Admin: 10/14/17 10:21 Dose: 100 mls/hr Insulin Human Regular (Humulin R Med) 0 units SC ACHS JONNY PRN Reason: Protocol Last Admin: 10/14/17 09:07 Dose: Not Given Mupirocin (Bactroban Ointment) 0 gm NS BID [facility] Stop: 10/17/17 10:01 Last Admin: 10/14/17 10:20 Dose: 1 applic Physical Exam - Constitutional Appears: No Acute Distress - Head Exam Head Exam: NORMOCEPHALIC - Eye Exam Eye Exam: Normal appearance. absent: Scleral icterus - ENT Exam ENT Exam: Mucous Membranes Moist Additional comments: oropharyngeal tube in place - Neck Exam Neck exam: Positive for: Normal Inspection - Respiratory Exam Respiratory Exam: NORMAL BREATHING PATTERN. absent: Respiratory Distress - Cardiovascular Exam Cardiovascular Exam: +S1, +S2 - GI/Abdominal Exam GI & Abdominal Exam: Distended, Normal Bowel Sounds, Soft. absent: Guarding, Rebound, Tenderness Results - Vital Signs Recent Vital Signs: Last Vital Signs Temp 98.3 F 10/14/17 04:00 Pulse 101 H 10/14/17 08:00 Resp 25 H 10/14/17 08:00 BP 134/68 10/14/17 10:14 Pulse Ox 100 10/14/17 08:00 - Labs Result Diagrams: 10/14/17 06:40 10/14/17 06:40 Labs: Laboratory Results - last 24 hr 10/12/17 10/13/17 10/13/17 15:00 13:15 14:00 WBC RBC Hgb Hct MCV MCH MCHC RDW Plt Count Gran % Lymph % (Auto) [place] % (Auto) Eos % (Auto) Baso % (Auto) Gran # Lymph # (Auto) [place] # (Auto) Eos # (Auto) Baso # (Auto) Platelet Evaluation PT INR APTT pCO2 35 pO2 59.0 L HCO3 20.7 L ABG pH 7.38 ABG Total CO2 21.8 L ABG O2 Saturation 94.7 L ABG O2 Content 10.9 L ABG Base Excess -4.0 L ABG Hemoglobin 8.3 L ABG Carboxyhemoglobin 1.5 POC ABG HHb (Measured) 5.2 H ABG Methemoglobin 0.7 ABG O2 Capacity 11.5 L ABG Potassium VBG pH VBG pCO2 VBG HCO3 VBG Total CO2 VBG O2 Sat (Calc) VBG Base Excess VBG Potassium Hgb O2 Saturation 92.7 L Sodium Chloride Glucose Lactate FiO2 40.0 Potassium Carbon Dioxide Anion Gap BUN Creatinine Est GFR ( Amer) Est GFR (Non-Af Amer) POC Glucose (mg/dL) 144 H Random Glucose Calcium Total Bilirubin AST ALT Alkaline Phosphatase Total Protein Albumin Globulin Albumin/Globulin Ratio Arterial Blood Potassium Venous Blood Potassium Blood Type O POSITIVE Antibody Screen Negative Antibody Identification Non Specific Antibody Crossmatch See Detail BBK History Checked Patient has bt 10/13/17 10/13/17 10/14/17 14:04 18:23 00:08 WBC RBC Hgb Hct MCV MCH MCHC RDW Plt Count Gran % Lymph % (Auto) [place] % (Auto) Eos % (Auto) Baso % (Auto) Gran # Lymph # (Auto) [place] # (Auto) Eos # (Auto) Baso # (Auto) Platelet Evaluation PT INR APTT pCO2 pO2 HCO3 ABG pH ABG Total CO2 ABG O2 Saturation ABG O2 Content ABG Base Excess ABG Hemoglobin ABG Carboxyhemoglobin POC ABG HHb (Measured) ABG Methemoglobin ABG O2 Capacity ABG Potassium VBG pH VBG pCO2 VBG HCO3 VBG Total CO2 VBG O2 Sat (Calc) VBG Base Excess VBG Potassium Hgb O2 Saturation Sodium Chloride Glucose Lactate FiO2 Potassium Carbon Dioxide Anion Gap BUN Creatinine Est GFR ( Amer) Est GFR (Non-Af Amer) POC Glucose (mg/dL) 199 H 174 H 160 H Random Glucose Calcium Total Bilirubin AST ALT Alkaline Phosphatase Total Protein Albumin Globulin Albumin/Globulin Ratio Arterial Blood Potassium Venous Blood Potassium Blood Type Antibody Screen Antibody Identification Crossmatch BBK History Checked 10/14/17 10/14/17 10/14/17 05:30 06:21 06:40 WBC 11.4 H RBC 3.09 L Hgb 8.6 L Hct 27.4 L MCV 88.7 D MCH 27.8 MCHC 31.4 RDW 14.5 Plt Count 26 L* Gran % 76.7 H Lymph % (Auto) 16.7 L [place] % (Auto) 6.5 H Eos % (Auto) 0.1 L Baso % (Auto) 0.0 Gran # 8.71 H Lymph # (Auto) 1.9 [place] # (Auto) 0.7 H Eos # (Auto) 0.0 Baso # (Auto) 0.00 Platelet Evaluation Low PT INR APTT pCO2 25 L pO2 56.0 L HCO3 17.0 L ABG pH 7.44 ABG Total CO2 17.8 L ABG O2 Saturation 93.7 L ABG O2 Content ABG Base Excess -5.4 L ABG Hemoglobin ABG Carboxyhemoglobin POC ABG HHb (Measured) ABG Methemoglobin ABG O2 Capacity ABG Potassium 4.4 VBG pH VBG pCO2 VBG HCO3 VBG Total CO2 VBG O2 Sat (Calc) VBG Base Excess VBG Potassium Hgb O2 Saturation Sodium 137.0 Chloride 107.0 Glucose 218 H Lactate 5.4 H* FiO2 28.0 Potassium Carbon Dioxide Anion Gap BUN Creatinine Est GFR ( Amer) Est GFR (Non-Af Amer) POC Glucose (mg/dL) 180 H Random Glucose Calcium Total Bilirubin AST ALT Alkaline Phosphatase Total Protein Albumin Globulin Albumin/Globulin Ratio Arterial Blood Potassium 4.4 Venous Blood Potassium Blood Type Antibody Screen Antibody Identification Crossmatch BBK History Checked 10/14/17 10/14/17 10/14/17 06:40 06:40 09:25 WBC RBC Hgb Hct MCV MCH MCHC RDW Plt Count Gran % Lymph % (Auto) [place] % (Auto) Eos % (Auto) Baso % (Auto) Gran # Lymph # (Auto) [place] # (Auto) Eos # (Auto) Baso # (Auto) Platelet Evaluation PT 24.9 H INR 2.13 H APTT 31.2 pCO2 pO2 96 H HCO3 ABG pH ABG Total CO2 ABG O2 Saturation ABG O2 Content ABG Base Excess ABG Hemoglobin ABG Carboxyhemoglobin POC ABG HHb (Measured) ABG Methemoglobin ABG O2 Capacity ABG Potassium VBG pH 7.35 VBG pCO2 35.0 L VBG HCO3 19.3 L VBG Total CO2 20.4 L VBG O2 Sat (Calc) 98.4 H VBG Base Excess -5.6 L VBG Potassium 4.6 Hgb O2 Saturation Sodium 140 136.0 Chloride 104 106.0 Glucose 230 H Lactate 4.9 H* FiO2 21.0 Potassium 4.6 Carbon Dioxide 19 L Anion Gap 22 H BUN 100 H Creatinine 4.0 H Est GFR ( Amer) 13 Est GFR (Non-Af Amer) 11 POC Glucose (mg/dL) Random Glucose 201 H Calcium 6.6 L* Total Bilirubin 1.3 AST 850 H D ALT 668 H Alkaline Phosphatase 131 H D Total Protein 4.7 L Albumin 2.2 L Globulin 2.5 Albumin/Globulin Ratio 0.9 L Arterial Blood Potassium Venous Blood Potassium 4.6 Blood Type Antibody Screen Antibody Identification Crossmatch BBK History Checked 10/14/17 11:08 WBC RBC Hgb Hct MCV MCH MCHC RDW Plt Count Gran % Lymph % (Auto) [place] % (Auto) Eos % (Auto) Baso % (Auto) Gran # Lymph # (Auto) [place] # (Auto) Eos # (Auto) Baso # (Auto) Platelet Evaluation PT INR APTT pCO2 pO2 HCO3 ABG pH ABG Total CO2 ABG O2 Saturation ABG O2 Content ABG Base Excess ABG Hemoglobin ABG Carboxyhemoglobin POC ABG HHb (Measured) ABG Methemoglobin ABG O2 Capacity ABG Potassium VBG pH VBG pCO2 VBG HCO3 VBG Total CO2 VBG O2 Sat (Calc) VBG Base Excess VBG Potassium Hgb O2 Saturation Sodium Chloride Glucose Lactate FiO2 Potassium Carbon Dioxide Anion Gap BUN Creatinine Est GFR ( Amer) Est GFR (Non-Af Amer) POC Glucose (mg/dL) 85 Random Glucose Calcium Total Bilirubin AST ALT Alkaline Phosphatase Total Protein Albumin Globulin Albumin/Globulin Ratio Arterial Blood Potassium Venous Blood Potassium Blood Type Antibody Screen Antibody Identification Crossmatch BBK History Checked Assessment & Plan - Assessment and Plan (Free Text) Assessment: Assessment: Status post respiratory failure, extubated 10/13/2017 Sepsis Anemia Acute on Chronic RF History of dementia Polypoid vascular lesion with bleeding in the rectum with hemoclips placed. Plan: Monitor H&H and for overt GI bleed Continue GI prophylaxis On IV steroids Continue DVT prophylaxis On IV antibiotics NPO on IVF Thank you for this consult and for allowing us to participate in your patient's care, further recommendations based upon clinical course. Seen and discussed with Dr. Brown who is covering Dr. Rust.
--- NOTE | 2017-10-14 13:37 | PN ---
DATE: 10/14/2017 SUBJECTIVE: The patient is 77-year-old seen and examined, minimally responsive, does have minimal response to painful stimuli, no GI bleed. PHYSICAL EXAMINATION: VITAL SIGNS: She is afebrile. Pulse 101, respirations 25, blood pressure 134/68. LUNGS: Bilateral fair airflow. No rhonchi or crackle. HEART: S1 and S2 audible. ABDOMEN: Soft, nontender. No rebound, no guarding. NEUROLOGIC: She is minimally responsive. EXTREMITIES: Bilateral leg, +4 edema. LABORATORY DATA: WBC 11.4, hemoglobin 8.6, hematocrit 27.4, and platelets of 26. PT 24.9, INR 2.13. Chemistry: Sodium 140, potassium 4.6, chloride 104, CO2 of 19. BUN 100, creatinine 4. Blood sugar of 85. AST 850, ALT 665. X-ray chest shows mild increase in hazy density overlying the right lung field, right pleural effusion. ASSESSMENT: 1. Resolving sepsis. 2. Hyponatremia, resolved 3. Acute renal failure. 4. Status post upper gastrointestinal bleed. 5. Profound dementia. 6. Encephalopathy. PLAN: We will monitor over the weekend. We will talk to the family for possible PEG placement and we will monitor CBC and CMP intermittently. Davon Marie MD
--- NOTE | 2017-10-14 14:15 | CP.CCUPN ---
<Soto Moura - Last Filed: 10/14/17 14:16> CCU Subjective - Physician Review Subjective (Free Text): Patient seen and examined at bedside in no acute distress. ROS unobtainable as patient is non verbal, baseline dementia, altered mentation. CCU Objective - Vital Signs / Intake & Output Vital Signs (Last 4 hours): Vital Signs BP 10/14/17 10:14 134/68 Intake and Output (Last 8hrs): Intake & Output 10/13/17 10/14/17 10/14/17 22:59 06:59 14:59 Intake Total 1950 650 Output Total 50 100 Balance 1900 550 Weight 57.238 kg Intake: IV 1350 600 Left Femoral 1350 600 Tube Feeding 600 Albumin 50 Output: Urine 50 100 Urethral (Alexandre) 50 100 Other: Voiding Method Indwelling Catheter # Bowel Movements 100 2 - Physical Exam Head: Positive for: Atraumatic, Normocephalic Pupils: Positive for: Non-Reactive Extroacular Muscles: Positive for: EOMI Conjunctiva: Positive for: Icteric Mouth: Positive for: Moist Mucous Membranes, Other (intubated) Neck: Positive for: Normal Range of Motion Respiratory/Chest: Positive for: Good Air Exchange, Rales. Negative for: Respiratory Distress, Accessory Muscle Use, Wheezes Cardiovascular: Positive for: Regular Rate and Rhythm, Normal S1, S2. Negative for: Murmurs Abdomen: Negative for: Tenderness, Distention, Peritoneal Signs Back: Positive for: Normal Inspection Upper Extremity: Positive for: Cyanosis. Negative for: Edema Lower Extremity: Positive for: Normal Inspection, Cyanosis. Negative for: Edema Neurological: Negative for: CN II-XII Intact, Speech Normal, Normal Cerebellar Funct Skin: Positive for: Cold. Negative for: Rashes Psychiatric: Negative for: Oriented x 3 (oriented x 2) - Medications Active Medications: Active Medications Generic Name Dose Route Start Last Admin Trade Name Freq PRN Reason Stop Dose Admin Albuterol/Ipratropium 3 ml 10/11/17 02:00 10/14/17 08:32 Duoneb 3 Mg/0.5 Mg (3 Ml) Ud IH 3 ml [id number] JONNY Administration Albuterol/Ipratropium 3 ml 10/10/17 23:20 Duoneb 3 Mg/0.5 Mg (3 Ml) Ud IH Q2H PRN Shortness of Breath Doxercalciferol 1 mcg 10/12/17 10:00 10/14/17 10:15 Hectorol IV 1 mcg DAILY JONNY Administration Famotidine 10 mg 10/12/17 12:00 10/14/17 10:14 Pepcid IVP 10 mg DAILY JONNY Administration Hydrocortisone Sodium Succinate 50 mg 10/13/17 10:00 10/14/17 10:13 Solu-Cortef IVP 50 mg DAILY JONNY Administration Doxycycline Hyclate 100 mg/ 100 mls @ 100 mls/hr 10/11/17 22:00 10/14/17 10: 21 Sodium Chloride IVPB 100 mls/hr Q12 JONNY Administration Protocol Insulin Human Regular 100 100 mls @ 4 mls/hr 10/12/17 07:55 10/12/17 23:06 units/ Sodium Chloride IV 4 units/hr .Q24H PRN 4 mls/hr TITRATE PER MD ORDER Administration Protocol 4 UNITS/HR Meropenem 500 mg/ Sodium 50 mls @ 100 mls/hr 10/12/17 10:00 10/14/17 10:21 Chloride IVPB 100 mls/hr DAILY JONNY Administration Protocol Insulin Human Regular 0 units 10/11/17 22:00 10/14/17 09:07 Humulin R Med SC Not Given ACHS [facility] Protocol Mupirocin 0 gm 10/12/17 18:00 10/14/17 10:20 Bactroban Ointment NS 10/17/17 10:01 1 applic BID JONNY Administration - Patient Studies Lab Studies: Microbiology Studies 10/12/17 06:00 Gram Stain - Final Trachasp Sputum Culture - Final Methicillin Resistant S Aureus Klebsiella Pneumoniae Ssp Pneu 10/11/17 05:00 Blood Culture - Preliminary Blood NO GROWTH AFTER 3 DAYS 10/11/17 04:45 Blood Culture - Preliminary Blood NO GROWTH AFTER 3 DAYS 10/12/17 22:40 C. difficile Antigen & Toxin A,B (M - Final Stool Lab Studies 10/14/17 10/14/17 10/14/17 Range/Units 11:08 09:25 06:40 WBC (4.5-11.0) 10^3/ul RBC (3.5-6.1) 10^6/uL Hgb (12.0-16.0) g/dL Hct (36.0-48.0) % MCV (80.0-105.0) fl MCH (25.0-35.0) pg MCHC (31.0-37.0) g/dl RDW (11.5-14.5) % Plt Count (120.0-450.0) 10^3/uL Gran % (50.0-68.0) % Lymph % (Auto) (22.0-35.0) % Dougherty % (Auto) (1.0-6.0) % Eos % (Auto) (1.5-5.0) % Baso % (Auto) (0.0-3.0) % Gran # (1.4-6.5) Lymph # (Auto) (1.2-3.4) Dougherty # (Auto) (0.1-0.6) Eos # (Auto) (0.0-0.7) Baso # (Auto) (0.0-2.0) K/mm3 Platelet Evaluation (NORMAL) PT 24.9 H (9.4-12.5) SECONDS INR 2.13 H (0.93-1.08) APTT 31.2 (25.1-36.5) Seconds pCO2 (35-45) mm/Hg pO2 96 H (80-100) mm/Hg HCO3 (21-28) mmol/L ABG pH (7.35-7.45) ABG Total CO2 (22-28) mmol.L ABG O2 Saturation (95-98) % ABG O2 Content (15-23) ML/dl ABG Base Excess (-2.0-3.0) mmol/L ABG Hemoglobin (11.7-17.4) g/dL ABG Carboxyhemoglobin (0.5-1.5) % POC ABG HHb (Measured) (0-5) % ABG Methemoglobin (0.0-3.0) % ABG O2 Capacity (16-24) mL/dl ABG Potassium (3.6-5.2) mmol/L VBG pH 7.35 (7.32-7.43) VBG pCO2 35.0 L (40-60) VBG HCO3 19.3 L (21-28) mmol/l VBG Total CO2 20.4 L (22-28) mmol.L VBG O2 Sat (Calc) 98.4 H (40-65) % VBG Base Excess -5.6 L (0.0-2.0) mmol/L VBG Potassium 4.6 (3.6-5.2) mmol/L Hgb O2 Saturation (95.0-98.0) % Sodium 136.0 (132-148) mmol/L Chloride 106.0 (98-107) mmol/L Glucose 230 H (65-105) mg/dl Lactate 4.9 H* (0.7-2.1) mmol/L FiO2 21.0 % Potassium (3.6-5.0) mmol/L Carbon Dioxide (21-33) mmol/L Anion Gap (10-20) BUN (7-21) mg/dL Creatinine (0.7-1.2) mg/dl Est GFR ( Amer) Est GFR (Non-Af Amer) POC Glucose (mg/dL) 85 (65-110) mg/dL Random Glucose (70-110) mg/dL Calcium (8.4-10.5) mg/dL Total Bilirubin (0.2-1.3) mg/dL AST (14-36) U/L ALT (7-56) U/L Alkaline Phosphatase (38-126) U/L Total Protein (5.8-8.3) g/dL Albumin (3.0-4.8) g/dL Globulin gm/dL Albumin/Globulin Ratio (1.1-1.8) Arterial Blood Potassium (3.6-5.2) mmol/L Venous Blood Potassium 4.6 (3.6-5.2) mmol/L Blood Type Antibody Screen Antibody Identification Crossmatch BBK History Checked 10/14/17 10/14/17 10/14/17 Range/Units 06:40 06:40 06:21 WBC 11.4 H (4.5-11.0) 10^3/ul RBC 3.09 L (3.5-6.1) 10^6/uL Hgb 8.6 L (12.0-16.0) g/dL Hct 27.4 L (36.0-48.0) % MCV 88.7 D (80.0-105.0) fl MCH 27.8 (25.0-35.0) pg MCHC 31.4 (31.0-37.0) g/dl RDW 14.5 (11.5-14.5) % Plt Count 26 L* (120.0-450.0) 10^3/uL Gran % 76.7 H (50.0-68.0) % Lymph % (Auto) 16.7 L (22.0-35.0) % Dougherty % (Auto) 6.5 H (1.0-6.0) % Eos % (Auto) 0.1 L (1.5-5.0) % Baso % (Auto) 0.0 (0.0-3.0) % Gran # 8.71 H (1.4-6.5) Lymph # (Auto) 1.9 (1.2-3.4) Dougherty # (Auto) 0.7 H (0.1-0.6) Eos # (Auto) 0.0 (0.0-0.7) Baso # (Auto) 0.00 (0.0-2.0) K/mm3 Platelet Evaluation Low (NORMAL) PT (9.4-12.5) SECONDS INR (0.93-1.08) APTT (25.1-36.5) Seconds pCO2 (35-45) mm/Hg pO2 (80-100) mm/Hg HCO3 (21-28) mmol/L ABG pH (7.35-7.45) ABG Total CO2 (22-28) mmol.L ABG O2 Saturation (95-98) % ABG O2 Content (15-23) ML/dl ABG Base Excess (-2.0-3.0) mmol/L ABG Hemoglobin (11.7-17.4) g/dL ABG Carboxyhemoglobin (0.5-1.5) % POC ABG HHb (Measured) (0-5) % ABG Methemoglobin (0.0-3.0) % ABG O2 Capacity (16-24) mL/dl ABG Potassium (3.6-5.2) mmol/L VBG pH (7.32-7.43) VBG pCO2 (40-60) VBG HCO3 (21-28) mmol/l VBG Total CO2 (22-28) mmol.L VBG O2 Sat (Calc) (40-65) % VBG Base Excess (0.0-2.0) mmol/L VBG Potassium (3.6-5.2) mmol/L Hgb O2 Saturation (95.0-98.0) % Sodium 140 (132-148) mmol/L Chloride 104 (98-107) mmol/L Glucose (65-105) mg/dl Lactate (0.7-2.1) mmol/L FiO2 % Potassium 4.6 (3.6-5.0) mmol/L Carbon Dioxide 19 L (21-33) mmol/L Anion Gap 22 H (10-20) BUN 100 H (7-21) mg/dL Creatinine 4.0 H (0.7-1.2) mg/dl Est GFR ( Amer) 13 Est GFR (Non-Af Amer) 11 POC Glucose (mg/dL) 180 H (65-110) mg/dL Random Glucose 201 H (70-110) mg/dL Calcium 6.6 L* (8.4-10.5) mg/dL Total Bilirubin 1.3 (0.2-1.3) mg/dL AST 850 H D (14-36) U/L ALT 668 H (7-56) U/L Alkaline Phosphatase 131 H D (38-126) U/L Total Protein 4.7 L (5.8-8.3) g/dL Albumin 2.2 L (3.0-4.8) g/dL Globulin 2.5 gm/dL Albumin/Globulin Ratio 0.9 L (1.1-1.8) Arterial Blood Potassium (3.6-5.2) mmol/L Venous Blood Potassium (3.6-5.2) mmol/L Blood Type Antibody Screen Antibody Identification Crossmatch BBK History Checked 10/14/17 10/14/17 10/13/17 Range/Units 05:30 00:08 18:23 WBC (4.5-11.0) 10^3/ul RBC (3.5-6.1) 10^6/uL Hgb (12.0-16.0) g/dL Hct (36.0-48.0) % MCV (80.0-105.0) fl MCH (25.0-35.0) pg MCHC (31.0-37.0) g/dl RDW (11.5-14.5) % Plt Count (120.0-450.0) 10^3/uL Gran % (50.0-68.0) % Lymph % (Auto) (22.0-35.0) % Dougherty % (Auto) (1.0-6.0) % Eos % (Auto) (1.5-5.0) % Baso % (Auto) (0.0-3.0) % Gran # (1.4-6.5) Lymph # (Auto) (1.2-3.4) Dougherty # (Auto) (0.1-0.6) Eos # (Auto) (0.0-0.7) Baso # (Auto) (0.0-2.0) K/mm3 Platelet Evaluation (NORMAL) PT (9.4-12.5) SECONDS INR (0.93-1.08) APTT (25.1-36.5) Seconds pCO2 25 L (35-45) mm/Hg pO2 56.0 L (80-100) mm/Hg HCO3 17.0 L (21-28) mmol/L ABG pH 7.44 (7.35-7.45) ABG Total CO2 17.8 L (22-28) mmol.L ABG O2 Saturation 93.7 L (95-98) % ABG O2 Content (15-23) ML/dl ABG Base Excess -5.4 L (-2.0-3.0) mmol/L ABG Hemoglobin (11.7-17.4) g/dL ABG Carboxyhemoglobin (0.5-1.5) % POC ABG HHb (Measured) (0-5) % ABG Methemoglobin (0.0-3.0) % ABG O2 Capacity (16-24) mL/dl ABG Potassium 4.4 (3.6-5.2) mmol/L VBG pH (7.32-7.43) VBG pCO2 (40-60) VBG HCO3 (21-28) mmol/l VBG Total CO2 (22-28) mmol.L VBG O2 Sat (Calc) (40-65) % VBG Base Excess (0.0-2.0) mmol/L VBG Potassium (3.6-5.2) mmol/L Hgb O2 Saturation (95.0-98.0) % Sodium 137.0 (132-148) mmol/L Chloride 107.0 (98-107) mmol/L Glucose 218 H (65-105) mg/dl Lactate 5.4 H* (0.7-2.1) mmol/L FiO2 28.0 % Potassium (3.6-5.0) mmol/L Carbon Dioxide (21-33) mmol/L Anion Gap (10-20) BUN (7-21) mg/dL Creatinine (0.7-1.2) mg/dl Est GFR ( Amer) Est GFR (Non-Af Amer) POC Glucose (mg/dL) 160 H 174 H (65-110) mg/dL Random Glucose (70-110) mg/dL Calcium (8.4-10.5) mg/dL Total Bilirubin (0.2-1.3) mg/dL AST (14-36) U/L ALT (7-56) U/L Alkaline Phosphatase (38-126) U/L Total Protein (5.8-8.3) g/dL Albumin (3.0-4.8) g/dL Globulin gm/dL Albumin/Globulin Ratio (1.1-1.8) Arterial Blood Potassium 4.4 (3.6-5.2) mmol/L Venous Blood Potassium (3.6-5.2) mmol/L Blood Type Antibody Screen Antibody Identification Crossmatch BBK History Checked 10/13/17 10/13/17 10/12/17 Range/Units 14:04 14:00 15:00 WBC (4.5-11.0) 10^3/ul RBC (3.5-6.1) 10^6/uL Hgb (12.0-16.0) g/dL Hct (36.0-48.0) % MCV (80.0-105.0) fl MCH (25.0-35.0) pg MCHC (31.0-37.0) g/dl RDW (11.5-14.5) % Plt Count (120.0-450.0) 10^3/uL Gran % (50.0-68.0) % Lymph % (Auto) (22.0-35.0) % Dougherty % (Auto) (1.0-6.0) % Eos % (Auto) (1.5-5.0) % Baso % (Auto) (0.0-3.0) % Gran # (1.4-6.5) Lymph # (Auto) (1.2-3.4) Dougherty # (Auto) (0.1-0.6) Eos # (Auto) (0.0-0.7) Baso # (Auto) (0.0-2.0) K/mm3 Platelet Evaluation (NORMAL) PT (9.4-12.5) SECONDS INR (0.93-1.08) APTT (25.1-36.5) Seconds pCO2 35 (35-45) mm/Hg pO2 59.0 L (80-100) mm/Hg HCO3 20.7 L (21-28) mmol/L ABG pH 7.38 (7.35-7.45) ABG Total CO2 21.8 L (22-28) mmol.L ABG O2 Saturation 94.7 L (95-98) % ABG O2 Content 10.9 L (15-23) ML/dl ABG Base Excess -4.0 L (-2.0-3.0) mmol/L ABG Hemoglobin 8.3 L (11.7-17.4) g/dL ABG Carboxyhemoglobin 1.5 (0.5-1.5) % POC ABG HHb (Measured) 5.2 H (0-5) % ABG Methemoglobin 0.7 (0.0-3.0) % ABG O2 Capacity 11.5 L (16-24) mL/dl ABG Potassium (3.6-5.2) mmol/L VBG pH (7.32-7.43) VBG pCO2 (40-60) VBG HCO3 (21-28) mmol/l VBG Total CO2 (22-28) mmol.L VBG O2 Sat (Calc) (40-65) % VBG Base Excess (0.0-2.0) mmol/L VBG Potassium (3.6-5.2) mmol/L Hgb O2 Saturation 92.7 L (95.0-98.0) % Sodium (132-148) mmol/L Chloride (98-107) mmol/L Glucose (65-105) mg/dl Lactate (0.7-2.1) mmol/L FiO2 40.0 % Potassium (3.6-5.0) mmol/L Carbon Dioxide (21-33) mmol/L Anion Gap (10-20) BUN (7-21) mg/dL Creatinine (0.7-1.2) mg/dl Est GFR ( Amer) Est GFR (Non-Af Amer) POC Glucose (mg/dL) 199 H (65-110) mg/dL Random Glucose (70-110) mg/dL Calcium (8.4-10.5) mg/dL Total Bilirubin (0.2-1.3) mg/dL AST (14-36) U/L ALT (7-56) U/L Alkaline Phosphatase (38-126) U/L Total Protein (5.8-8.3) g/dL Albumin (3.0-4.8) g/dL Globulin gm/dL Albumin/Globulin Ratio (1.1-1.8) Arterial Blood Potassium (3.6-5.2) mmol/L Venous Blood Potassium (3.6-5.2) mmol/L Blood Type O POSITIVE Antibody Screen Negative Antibody Identification Non Specific Antibody Crossmatch See Detail BBK History Checked Patient has bt Laboratory Results - last 24 hr 10/12/17 10/13/17 10/13/17 15:00 14:00 14:04 WBC RBC Hgb Hct MCV MCH MCHC RDW Plt Count Gran % Lymph % (Auto) Dougherty % (Auto) Eos % (Auto) Baso % (Auto) Gran # Lymph # (Auto) Dougherty # (Auto) Eos # (Auto) Baso # (Auto) Platelet Evaluation PT INR APTT pCO2 35 pO2 59.0 L HCO3 20.7 L ABG pH 7.38 ABG Total CO2 21.8 L ABG O2 Saturation 94.7 L ABG O2 Content 10.9 L ABG Base Excess -4.0 L ABG Hemoglobin 8.3 L ABG Carboxyhemoglobin 1.5 POC ABG HHb (Measured) 5.2 H ABG Methemoglobin 0.7 ABG O2 Capacity 11.5 L ABG Potassium VBG pH VBG pCO2 VBG HCO3 VBG Total CO2 VBG O2 Sat (Calc) VBG Base Excess VBG Potassium Hgb O2 Saturation 92.7 L Sodium Chloride Glucose Lactate FiO2 40.0 Potassium Carbon Dioxide Anion Gap BUN Creatinine Est GFR ( Amer) Est GFR (Non-Af Amer) POC Glucose (mg/dL) 199 H Random Glucose Calcium Total Bilirubin AST ALT Alkaline Phosphatase Total Protein Albumin Globulin Albumin/Globulin Ratio Arterial Blood Potassium Venous Blood Potassium Blood Type O POSITIVE Antibody Screen Negative Antibody Identification Non Specific Antibody Crossmatch See Detail BBK History Checked Patient has bt 10/13/17 10/14/17 10/14/17 18:23 00:08 05:30 WBC RBC Hgb Hct MCV MCH MCHC RDW Plt Count Gran % Lymph % (Auto) Dougherty % (Auto) Eos % (Auto) Baso % (Auto) Gran # Lymph # (Auto) Dougherty # (Auto) Eos # (Auto) Baso # (Auto) Platelet Evaluation PT INR APTT pCO2 25 L pO2 56.0 L HCO3 17.0 L ABG pH 7.44 ABG Total CO2 17.8 L ABG O2 Saturation 93.7 L ABG O2 Content ABG Base Excess -5.4 L ABG Hemoglobin ABG Carboxyhemoglobin POC ABG HHb (Measured) ABG Methemoglobin ABG O2 Capacity ABG Potassium 4.4 VBG pH VBG pCO2 VBG HCO3 VBG Total CO2 VBG O2 Sat (Calc) VBG Base Excess VBG Potassium Hgb O2 Saturation Sodium 137.0 Chloride 107.0 Glucose 218 H Lactate 5.4 H* FiO2 28.0 Potassium Carbon Dioxide Anion Gap BUN Creatinine Est GFR ( Amer) Est GFR (Non-Af Amer) POC Glucose (mg/dL) 174 H 160 H Random Glucose Calcium Total Bilirubin AST ALT Alkaline Phosphatase Total Protein Albumin Globulin Albumin/Globulin Ratio Arterial Blood Potassium 4.4 Venous Blood Potassium Blood Type Antibody Screen Antibody Identification Crossmatch BBK History Checked 10/14/17 10/14/17 10/14/17 06:21 06:40 06:40 WBC 11.4 H RBC 3.09 L Hgb 8.6 L Hct 27.4 L MCV 88.7 D MCH 27.8 MCHC 31.4 RDW 14.5 Plt Count 26 L* Gran % 76.7 H Lymph % (Auto) 16.7 L Dougherty % (Auto) 6.5 H Eos % (Auto) 0.1 L Baso % (Auto) 0.0 Gran # 8.71 H Lymph # (Auto) 1.9 Dougherty # (Auto) 0.7 H Eos # (Auto) 0.0 Baso # (Auto) 0.00 Platelet Evaluation Low PT INR APTT pCO2 pO2 HCO3 ABG pH ABG Total CO2 ABG O2 Saturation ABG O2 Content ABG Base Excess ABG Hemoglobin ABG Carboxyhemoglobin POC ABG HHb (Measured) ABG Methemoglobin ABG O2 Capacity ABG Potassium VBG pH VBG pCO2 VBG HCO3 VBG Total CO2 VBG O2 Sat (Calc) VBG Base Excess VBG Potassium Hgb O2 Saturation Sodium 140 Chloride 104 Glucose Lactate FiO2 Potassium 4.6 Carbon Dioxide 19 L Anion Gap 22 H BUN 100 H Creatinine 4.0 H Est GFR ( Amer) 13 Est GFR (Non-Af Amer) 11 POC Glucose (mg/dL) 180 H Random Glucose 201 H Calcium 6.6 L* Total Bilirubin 1.3 AST 850 H D ALT 668 H Alkaline Phosphatase 131 H D Total Protein 4.7 L Albumin 2.2 L Globulin 2.5 Albumin/Globulin Ratio 0.9 L Arterial Blood Potassium Venous Blood Potassium Blood Type Antibody Screen Antibody Identification Crossmatch BBK History Checked 10/14/17 10/14/17 10/14/17 06:40 09:25 11:08 WBC RBC Hgb Hct MCV MCH MCHC RDW Plt Count Gran % Lymph % (Auto) Dougherty % (Auto) Eos % (Auto) Baso % (Auto) Gran # Lymph # (Auto) Dougherty # (Auto) Eos # (Auto) Baso # (Auto) Platelet Evaluation PT 24.9 H INR 2.13 H APTT 31.2 pCO2 pO2 96 H HCO3 ABG pH ABG Total CO2 ABG O2 Saturation ABG O2 Content ABG Base Excess ABG Hemoglobin ABG Carboxyhemoglobin POC ABG HHb (Measured) ABG Methemoglobin ABG O2 Capacity ABG Potassium VBG pH 7.35 VBG pCO2 35.0 L VBG HCO3 19.3 L VBG Total CO2 20.4 L VBG O2 Sat (Calc) 98.4 H VBG Base Excess -5.6 L VBG Potassium 4.6 Hgb O2 Saturation Sodium 136.0 Chloride 106.0 Glucose 230 H Lactate 4.9 H* FiO2 21.0 Potassium Carbon Dioxide Anion Gap BUN Creatinine Est GFR ( Amer) Est GFR (Non-Af Amer) POC Glucose (mg/dL) 85 Random Glucose Calcium Total Bilirubin AST ALT Alkaline Phosphatase Total Protein Albumin Globulin Albumin/Globulin Ratio Arterial Blood Potassium Venous Blood Potassium 4.6 Blood Type Antibody Screen Antibody Identification Crossmatch BBK History Checked Fingerstick Blood Sugar Results: 160 Review of Systems - Review of Systems Systems not reviewed;Unavailable: Altered Mental Status Assessment/Plan - Assessment and Plan (Free Text) Assessment: 77 F with past medical history of HTN, dementia, s/p right hip replacement presents from [facility] ([facility] due to [facility] hip surgery) for AMS and lethargy s/p cardiac arrest found to be in Hyperglycemic Hyperosmolar Nonketotic Coma (HONK), Hypernatremic, and septic shock secondary to HCAP with current resolution. Neuro: -Baseline severe dementia -Continue with Neuro checks CV: -Maintain MAP > 65 -Continue to hold HTN medications -Patient currently on solu-cortef; taper dose Pulm: -Maintain SPO2 > 90 % -Continue with duonebs GI: -OG tube in place -Continue with free water flushes Renal: -Monitor I&O -Monitor and replete electrolytes as needed -Continue with free water flushes -Hypernatremia resolved ID: -Procal 0.45 -ID consulted for recs -Monitor lactate; currently downtrending -Continue with Merrem and doxycycline as per ID for HCAP -Continue with mupirocin -Follow up pancultures Endo: -HgA1C 11.7; insulin sliding scale-medium -Insulin drip discontinued -Maintain euglycemia and normothermia Hematologic -H&H stable Dispo: transfer to telemetry <Marcell Matias - Last Filed: 10/14/17 18:08> CCU Objective - Vital Signs / Intake & Output Vital Signs (Last 4 hours): Vital Signs Pulse Resp BP Pulse Ox 10/14/17 17:00 99 H 24 130/65 100 10/14/17 16:30 97 H 22 135/62 100 10/14/17 16:00 102 H 23 141/72 100 10/14/17 15:38 99 H 10/14/17 15:30 97 H 20 124/67 100 10/14/17 15:00 99 H 18 126/58 L 100 10/14/17 14:30 98 H 20 130/62 100 Intake and Output (Last 8hrs): Intake & Output 10/14/17 10/14/17 10/14/17 06:59 14:59 22:59 Intake Total 650 Output Total 100 Balance 550 Weight 126 lb 3 oz Intake: IV 600 Left Femoral 600 Albumin 50 Output: Urine 100 Urethral (Alexandre) 100 Other: # Bowel Movements 2 - Medications Active Medications: Active Medications Generic Name Dose Route Start Last Admin Trade Name Freq PRN Reason Stop Dose Admin Albuterol/Ipratropium 3 ml 10/11/17 02:00 10/14/17 14:32 Duoneb 3 Mg/0.5 Mg (3 Ml) Ud IH 3 ml [id number] JONNY Administration Albuterol/Ipratropium 3 ml 10/10/17 23:20 Duoneb 3 Mg/0.5 Mg (3 Ml) Ud IH Q2H PRN Shortness of Breath Doxercalciferol 1 mcg 10/12/17 10:00 10/14/17 10:15 Hectorol IV 1 mcg DAILY JONNY Administration Famotidine 10 mg 10/12/17 12:00 10/14/17 10:14 Pepcid IVP 10 mg DAILY JONNY Administration Doxycycline Hyclate 100 mg/ 100 mls @ 100 mls/hr 10/11/17 22:00 10/14/17 10: 21 Sodium Chloride IVPB 100 mls/hr Q12 JONNY Administration Protocol Insulin Human Regular 100 100 mls @ 4 mls/hr 10/12/17 07:55 10/12/17 23:06 units/ Sodium Chloride IV 4 units/hr .Q24H PRN 4 mls/hr TITRATE PER MD ORDER Administration Protocol 4 UNITS/HR Meropenem 500 mg/ Sodium 50 mls @ 100 mls/hr 10/12/17 10:00 10/14/17 10:21 Chloride IVPB 100 mls/hr DAILY JONNY Administration Protocol Dextrose/Sodium Chloride 1,000 mls @ 75 mls/hr 10/14/17 18:15 Dextrose 5%/0.9% Ns 1000 Ml IV .[id number] JONNY Insulin Human Regular 0 units 10/11/17 22:00 10/14/17 09:07 Humulin R Med SC Not Given ACHS JONNY Protocol Mupirocin 0 gm 10/12/17 18:00 10/14/17 10:20 Bactroban Ointment NS 10/17/17 10:01 1 applic BID JONNY Administration - Patient Studies Lab Studies: Microbiology Studies 10/12/17 07:51 Urine Culture - Final Urine,Alexandre Yeast Species 10/12/17 06:00 Gram Stain - Final Trachasp Sputum Culture - Final Methicillin Resistant S Aureus Klebsiella Pneumoniae Ssp Pneu 10/11/17 05:00 Blood Culture - Preliminary Blood NO GROWTH AFTER 3 DAYS 10/11/17 04:45 Blood Culture - Preliminary Blood NO GROWTH AFTER 3 DAYS Lab Studies 10/14/17 10/14/17 10/14/17 Range/Units 16:02 11:08 09:25 WBC (4.5-11.0) 10^3/ul RBC (3.5-6.1) 10^6/uL Hgb (12.0-16.0) g/dL Hct (36.0-48.0) % MCV (80.0-105.0) fl MCH (25.0-35.0) pg MCHC (31.0-37.0) g/dl RDW (11.5-14.5) % Plt Count (120.0-450.0) 10^3/uL Gran % (50.0-68.0) % Lymph % (Auto) (22.0-35.0) % Dougherty % (Auto) (1.0-6.0) % Eos % (Auto) (1.5-5.0) % Baso % (Auto) (0.0-3.0) % Gran # (1.4-6.5) Lymph # (Auto) (1.2-3.4) Dougherty # (Auto) (0.1-0.6) Eos # (Auto) (0.0-0.7) Baso # (Auto) (0.0-2.0) K/mm3 Platelet Evaluation (NORMAL) PT (9.4-12.5) SECONDS INR (0.93-1.08) APTT (25.1-36.5) Seconds pCO2 (35-45) mm/Hg pO2 96 H (80-100) mm/Hg HCO3 (21-28) mmol/L ABG pH (7.35-7.45) ABG Total CO2 (22-28) mmol.L ABG O2 Saturation (95-98) % ABG Base Excess (-2.0-3.0) mmol/L ABG Potassium (3.6-5.2) mmol/L VBG pH 7.35 (7.32-7.43) VBG pCO2 35.0 L (40-60) VBG HCO3 19.3 L (21-28) mmol/l VBG Total CO2 20.4 L (22-28) mmol.L VBG O2 Sat (Calc) 98.4 H (40-65) % VBG Base Excess -5.6 L (0.0-2.0) mmol/L VBG Potassium 4.6 (3.6-5.2) mmol/L Sodium 136.0 (132-148) mmol/L Chloride 106.0 (98-107) mmol/L Glucose 230 H (65-105) mg/dl Lactate 4.9 H* (0.7-2.1) mmol/L FiO2 21.0 % Potassium (3.6-5.0) mmol/L Carbon Dioxide (21-33) mmol/L Anion Gap (10-20) BUN (7-21) mg/dL Creatinine (0.7-1.2) mg/dl Est GFR ( Amer) Est GFR (Non-Af Amer) POC Glucose (mg/dL) 140 H 85 (65-110) mg/dL Random Glucose (70-110) mg/dL Calcium (8.4-10.5) mg/dL Total Bilirubin (0.2-1.3) mg/dL AST (14-36) U/L ALT (7-56) U/L Alkaline Phosphatase (38-126) U/L Total Protein (5.8-8.3) g/dL Albumin (3.0-4.8) g/dL Globulin gm/dL Albumin/Globulin Ratio (1.1-1.8) Arterial Blood Potassium (3.6-5.2) mmol/L Venous Blood Potassium 4.6 (3.6-5.2) mmol/L 10/14/17 10/14/17 10/14/17 Range/Units 06:40 06:40 06:40 WBC 11.4 H (4.5-11.0) 10^3/ul RBC 3.09 L (3.5-6.1) 10^6/uL Hgb 8.6 L (12.0-16.0) g/dL Hct 27.4 L (36.0-48.0) % MCV 88.7 D (80.0-105.0) fl MCH 27.8 (25.0-35.0) pg MCHC 31.4 (31.0-37.0) g/dl RDW 14.5 (11.5-14.5) % Plt Count 26 L* (120.0-450.0) 10^3/uL Gran % 76.7 H (50.0-68.0) % Lymph % (Auto) 16.7 L (22.0-35.0) % Dougherty % (Auto) 6.5 H (1.0-6.0) % Eos % (Auto) 0.1 L (1.5-5.0) % Baso % (Auto) 0.0 (0.0-3.0) % Gran # 8.71 H (1.4-6.5) Lymph # (Auto) 1.9 (1.2-3.4) Dougherty # (Auto) 0.7 H (0.1-0.6) Eos # (Auto) 0.0 (0.0-0.7) Baso # (Auto) 0.00 (0.0-2.0) K/mm3 Platelet Evaluation Low (NORMAL) PT 24.9 H (9.4-12.5) SECONDS INR 2.13 H (0.93-1.08) APTT 31.2 (25.1-36.5) Seconds pCO2 (35-45) mm/Hg pO2 (80-100) mm/Hg HCO3 (21-28) mmol/L ABG pH (7.35-7.45) ABG Total CO2 (22-28) mmol.L ABG O2 Saturation (95-98) % ABG Base Excess (-2.0-3.0) mmol/L ABG Potassium (3.6-5.2) mmol/L VBG pH (7.32-7.43) VBG pCO2 (40-60) VBG HCO3 (21-28) mmol/l VBG Total CO2 (22-28) mmol.L VBG O2 Sat (Calc) (40-65) % VBG Base Excess (0.0-2.0) mmol/L VBG Potassium (3.6-5.2) mmol/L Sodium 140 (132-148) mmol/L Chloride 104 (98-107) mmol/L Glucose (65-105) mg/dl Lactate (0.7-2.1) mmol/L FiO2 % Potassium 4.6 (3.6-5.0) mmol/L Carbon Dioxide 19 L (21-33) mmol/L Anion Gap 22 H (10-20) BUN 100 H (7-21) mg/dL Creatinine 4.0 H (0.7-1.2) mg/dl Est GFR ( Amer) 13 Est GFR (Non-Af Amer) 11 POC Glucose (mg/dL) (65-110) mg/dL Random Glucose 201 H (70-110) mg/dL Calcium 6.6 L* (8.4-10.5) mg/dL Total Bilirubin 1.3 (0.2-1.3) mg/dL AST 850 H D (14-36) U/L ALT 668 H (7-56) U/L Alkaline Phosphatase 131 H D (38-126) U/L Total Protein 4.7 L (5.8-8.3) g/dL Albumin 2.2 L (3.0-4.8) g/dL Globulin 2.5 gm/dL Albumin/Globulin Ratio 0.9 L (1.1-1.8) Arterial Blood Potassium (3.6-5.2) mmol/L Venous Blood Potassium (3.6-5.2) mmol/L 10/14/17 10/14/17 10/14/17 Range/Units 06:21 05:30 00:08 WBC (4.5-11.0) 10^3/ul RBC (3.5-6.1) 10^6/uL Hgb (12.0-16.0) g/dL Hct (36.0-48.0) % MCV (80.0-105.0) fl MCH (25.0-35.0) pg MCHC (31.0-37.0) g/dl RDW (11.5-14.5) % Plt Count (120.0-450.0) 10^3/uL Gran % (50.0-68.0) % Lymph % (Auto) (22.0-35.0) % Dougherty % (Auto) (1.0-6.0) % Eos % (Auto) (1.5-5.0) % Baso % (Auto) (0.0-3.0) % Gran # (1.4-6.5) Lymph # (Auto) (1.2-3.4) Dougherty # (Auto) (0.1-0.6) Eos # (Auto) (0.0-0.7) Baso # (Auto) (0.0-2.0) K/mm3 Platelet Evaluation (NORMAL) PT (9.4-12.5) SECONDS INR (0.93-1.08) APTT (25.1-36.5) Seconds pCO2 25 L (35-45) mm/Hg pO2 56.0 L (80-100) mm/Hg HCO3 17.0 L (21-28) mmol/L ABG pH 7.44 (7.35-7.45) ABG Total CO2 17.8 L (22-28) mmol.L ABG O2 Saturation 93.7 L (95-98) % ABG Base Excess -5.4 L (-2.0-3.0) mmol/L ABG Potassium 4.4 (3.6-5.2) mmol/L VBG pH (7.32-7.43) VBG pCO2 (40-60) VBG HCO3 (21-28) mmol/l VBG Total CO2 (22-28) mmol.L VBG O2 Sat (Calc) (40-65) % VBG Base Excess (0.0-2.0) mmol/L VBG Potassium (3.6-5.2) mmol/L Sodium 137.0 (132-148) mmol/L Chloride 107.0 (98-107) mmol/L Glucose 218 H (65-105) mg/dl Lactate 5.4 H* (0.7-2.1) mmol/L FiO2 28.0 % Potassium (3.6-5.0) mmol/L Carbon Dioxide (21-33) mmol/L Anion Gap (10-20) BUN (7-21) mg/dL Creatinine (0.7-1.2) mg/dl Est GFR ( Amer) Est GFR (Non-Af Amer) POC Glucose (mg/dL) 180 H 160 H (65-110) mg/dL Random Glucose (70-110) mg/dL Calcium (8.4-10.5) mg/dL Total Bilirubin (0.2-1.3) mg/dL AST (14-36) U/L ALT (7-56) U/L Alkaline Phosphatase (38-126) U/L Total Protein (5.8-8.3) g/dL Albumin (3.0-4.8) g/dL Globulin gm/dL Albumin/Globulin Ratio (1.1-1.8) Arterial Blood Potassium 4.4 (3.6-5.2) mmol/L Venous Blood Potassium (3.6-5.2) mmol/L 10/13/17 Range/Units 18:23 WBC (4.5-11.0) 10^3/ul RBC (3.5-6.1) 10^6/uL Hgb (12.0-16.0) g/dL Hct (36.0-48.0) % MCV (80.0-105.0) fl MCH (25.0-35.0) pg MCHC (31.0-37.0) g/dl RDW (11.5-14.5) % Plt Count (120.0-450.0) 10^3/uL Gran % (50.0-68.0) % Lymph % (Auto) (22.0-35.0) % [place] % (Auto) (1.0-6.0) % Eos % (Auto) (1.5-5.0) % Baso % (Auto) (0.0-3.0) % Gran # (1.4-6.5) Lymph # (Auto) (1.2-3.4) [place] # (Auto) (0.1-0.6) Eos # (Auto) (0.0-0.7) Baso # (Auto) (0.0-2.0) K/mm3 Platelet Evaluation (NORMAL) PT (9.4-12.5) SECONDS INR (0.93-1.08) APTT (25.1-36.5) Seconds pCO2 (35-45) mm/Hg pO2 (80-100) mm/Hg HCO3 (21-28) mmol/L ABG pH (7.35-7.45) ABG Total CO2 (22-28) mmol.L ABG O2 Saturation (95-98) % ABG Base Excess (-2.0-3.0) mmol/L ABG Potassium (3.6-5.2) mmol/L VBG pH (7.32-7.43) VBG pCO2 (40-60) VBG HCO3 (21-28) mmol/l VBG Total CO2 (22-28) mmol.L VBG O2 Sat (Calc) (40-65) % VBG Base Excess (0.0-2.0) mmol/L VBG Potassium (3.6-5.2) mmol/L Sodium (132-148) mmol/L Chloride (98-107) mmol/L Glucose (65-105) mg/dl Lactate (0.7-2.1) mmol/L FiO2 % Potassium (3.6-5.0) mmol/L Carbon Dioxide (21-33) mmol/L Anion Gap (10-20) BUN (7-21) mg/dL Creatinine (0.7-1.2) mg/dl Est GFR ( Amer) Est GFR (Non-Af Amer) POC Glucose (mg/dL) 174 H (65-110) mg/dL Random Glucose (70-110) mg/dL Calcium (8.4-10.5) mg/dL Total Bilirubin (0.2-1.3) mg/dL AST (14-36) U/L ALT (7-56) U/L Alkaline Phosphatase (38-126) U/L Total Protein (5.8-8.3) g/dL Albumin (3.0-4.8) g/dL Globulin gm/dL Albumin/Globulin Ratio (1.1-1.8) Arterial Blood Potassium (3.6-5.2) mmol/L Venous Blood Potassium (3.6-5.2) mmol/L Laboratory Results - last 24 hr 10/13/17 10/14/17 10/14/17 18:23 00:08 05:30 WBC RBC Hgb Hct MCV MCH MCHC RDW Plt Count Gran % Lymph % (Auto) [place] % (Auto) Eos % (Auto) Baso % (Auto) Gran # Lymph # (Auto) [place] # (Auto) Eos # (Auto) Baso # (Auto) Platelet Evaluation PT INR APTT pCO2 25 L pO2 56.0 L HCO3 17.0 L ABG pH 7.44 ABG Total CO2 17.8 L ABG O2 Saturation 93.7 L ABG Base Excess -5.4 L ABG Potassium 4.4 VBG pH VBG pCO2 VBG HCO3 VBG Total CO2 VBG O2 Sat (Calc) VBG Base Excess VBG Potassium Sodium 137.0 Chloride 107.0 Glucose 218 H Lactate 5.4 H* FiO2 28.0 Potassium Carbon Dioxide Anion Gap BUN Creatinine Est GFR ( Amer) Est GFR (Non-Af Amer) POC Glucose (mg/dL) 174 H 160 H Random Glucose Calcium Total Bilirubin AST ALT Alkaline Phosphatase Total Protein Albumin Globulin Albumin/Globulin Ratio Arterial Blood Potassium 4.4 Venous Blood Potassium 10/14/17 10/14/17 10/14/17 06:21 06:40 06:40 WBC 11.4 H RBC 3.09 L Hgb 8.6 L Hct 27.4 L MCV 88.7 D MCH 27.8 MCHC 31.4 RDW 14.5 Plt Count 26 L* Gran % 76.7 H Lymph % (Auto) 16.7 L [place] % (Auto) 6.5 H Eos % (Auto) 0.1 L Baso % (Auto) 0.0 Gran # 8.71 H Lymph # (Auto) 1.9 [place] # (Auto) 0.7 H Eos # (Auto) 0.0 Baso # (Auto) 0.00 Platelet Evaluation Low PT INR APTT pCO2 pO2 HCO3 ABG pH ABG Total CO2 ABG O2 Saturation ABG Base Excess ABG Potassium VBG pH VBG pCO2 VBG HCO3 VBG Total CO2 VBG O2 Sat (Calc) VBG Base Excess VBG Potassium Sodium 140 Chloride 104 Glucose Lactate FiO2 Potassium 4.6 Carbon Dioxide 19 L Anion Gap 22 H BUN 100 H Creatinine 4.0 H Est GFR ( Amer) 13 Est GFR (Non-Af Amer) 11 POC Glucose (mg/dL) 180 H Random Glucose 201 H Calcium 6.6 L* Total Bilirubin 1.3 AST 850 H D ALT 668 H Alkaline Phosphatase 131 H D Total Protein 4.7 L Albumin 2.2 L Globulin 2.5 Albumin/Globulin Ratio 0.9 L Arterial Blood Potassium Venous Blood Potassium 10/14/17 10/14/17 10/14/17 06:40 09:25 11:08 WBC RBC Hgb Hct MCV MCH MCHC RDW Plt Count Gran % Lymph % (Auto) [place] % (Auto) Eos % (Auto) Baso % (Auto) Gran # Lymph # (Auto) [place] # (Auto) Eos # (Auto) Baso # (Auto) Platelet Evaluation PT 24.9 H INR 2.13 H APTT 31.2 pCO2 pO2 96 H HCO3 ABG pH ABG Total CO2 ABG O2 Saturation ABG Base Excess ABG Potassium VBG pH 7.35 VBG pCO2 35.0 L VBG HCO3 19.3 L VBG Total CO2 20.4 L VBG O2 Sat (Calc) 98.4 H VBG Base Excess -5.6 L VBG Potassium 4.6 Sodium 136.0 Chloride 106.0 Glucose 230 H Lactate 4.9 H* FiO2 21.0 Potassium Carbon Dioxide Anion Gap BUN Creatinine Est GFR ( Amer) Est GFR (Non-Af Amer) POC Glucose (mg/dL) 85 Random Glucose Calcium Total Bilirubin AST ALT Alkaline Phosphatase Total Protein Albumin Globulin Albumin/Globulin Ratio Arterial Blood Potassium Venous Blood Potassium 4.6 10/14/17 16:02 WBC RBC Hgb Hct MCV MCH MCHC RDW Plt Count Gran % Lymph % (Auto) [place] % (Auto) Eos % (Auto) Baso % (Auto) Gran # Lymph # (Auto) [place] # (Auto) Eos # (Auto) Baso # (Auto) Platelet Evaluation PT INR APTT pCO2 pO2 HCO3 ABG pH ABG Total CO2 ABG O2 Saturation ABG Base Excess ABG Potassium VBG pH VBG pCO2 VBG HCO3 VBG Total CO2 VBG O2 Sat (Calc) VBG Base Excess VBG Potassium Sodium Chloride Glucose Lactate FiO2 Potassium Carbon Dioxide Anion Gap BUN Creatinine Est GFR ( Amer) Est GFR (Non-Af Amer) POC Glucose (mg/dL) 140 H Random Glucose Calcium Total Bilirubin AST ALT Alkaline Phosphatase Total Protein Albumin Globulin Albumin/Globulin Ratio Arterial Blood Potassium Venous Blood Potassium Attending/Attestation - Attestation I have personally seen and examined this patient.: Yes I have fully participated in the care of the patient.: Yes I have reviewed all pertinent clinical information: Yes Notes (Text): 10/14/17 18:03 77 yo female with advanced dementia, recovering from septic shock due to CAP/ HCAP, now hemodynamically stable, extubated yesterday, was doing ok overnight. creatinine level is creeping up, will start IVF and free water flushes via NGT-- >will re-assess. Maintain MAP>65, euvolemia and euglycemia, avoid hyperchloremia and nephrotoxins. goals of care need to be re-discussed, including PEG tube placemenent. Meanwhile patient is hemodynamically and respiratory hankins stable, ok to downgrade to tele ccm time 40 min
[2017-10-14] MEDS ORDERED: Dextrose 5%/0.9% NS 1,000 ML IV SCH (18:15)
--- NOTE | 2017-10-14 18:16 | PN ---
DATE: 10/14/2017 SUBJECTIVE: The patient is seen lying in bed in the ICU. She is extubated. She is awake. Eyes are open, but she is not following any commands. She is only responding to deep pain by opening her eyes. PHYSICAL EXAMINATION: GENERAL: Elderly lady lying in bed in the ICU. VITAL SIGNS: Blood pressure 134/68, heart rate 101, respiratory rate 25, temperature 98.3. HEENT: Normocephalic, atraumatic. Positive icterus, positive pallor, chemosis, pupils sluggish. NECK: Supple, no JVD. LUNGS: Bilateral equal air entry, bilateral rhonchi, crackles on the right side. CARDIAC: S1, S2. Regular rate and rhythm. No murmur, no rub. ABDOMEN: Soft, nondistended, nontender. Bowel sounds present. EXTREMITIES: 1+ pitting edema of the lower extremities, 1+ pitting edema of the upper extremities. INTAKE AND OUTPUT: 3612/150. LABORATORY DATA: WBC 11, hemoglobin 8.6, hematocrit 27 and platelets 26. Sodium 140, potassium 4.6, chloride 104, CO2 19, BUN 100, creatinine , glucose 201, calcium 6.6, AST 850, ALT 668, albumin 2.2, corrected calcium is 8. Sputum culture from tracheal aspirate: MRSA, Klebsiella. Chest x-ray. Mild increase in intensity over the right lung, small right pleural effusion. CURRENT MEDICATIONS Doxycycline 100 every 12 hours, Hectorol 1 mcg, insulin, Merrem 500, Pepcid, Solu-Cortef 50 IV daily, calcium gluconate 2 g given this morning, Lasix 20 mg given this morning. IV fluids discontinued. Vancomycin 2 g. ASSESSMENT: 1.. Respiratory failure, improved. 2. Healthcare-associated pneumonia, methicillin resistant Staphylococcus aureus and Klebsiella. 3. Status post severe sepsis, slowly improving. 4. Acute kidney injury superimposed on chronic kidney disease stage III. 5. Acute liver injury, shock liver. 6. Profound thrombocytopenia. 7. Disseminated intravascular coagulation. 8. Dementia. 9. Hypertension. PLAN: 1. Continue antibiotics, dose for creatinine clearance about 10 mL/minute. 2. Agree with calcium supplementation, the patient appears to have severe secondary hyperparathyroidism. 3. Continue Hectorol 1 mcg IV daily. 4. Etiology of acute kidney injury is ATN in the setting of severe sepsis. 5. Continue to monitor urine output and daily labs. 6. No plans for renal replacement therapy at this time. We will continue to monitor closely. More than 35 minutes was spent in the care of this critically ill patient. Brittanie Turk MD
[2017-10-14 23:36] LABS: ARTERIAL BLOOD GAS HCO3 12.6 mmol/L (21-28); ARTERIAL BLOOD GAS O2 SAT 81.1 % (95-98); ARTERIAL BLOOD GAS PCO2 28 mm/Hg (35-45); ARTERIAL BLOOD GAS PH 7.26 (7.35-7.45); ARTERIAL BLOOD GAS TCO2 13.5 mmol.L (22-28)
--- NOTE | 2017-10-15 00:16 | CON ---
DATE: GASTROENTEROLOGY CONSULTATION This consult is for Dr. Rust. Dr. Brown covering. I personally examined this patient. I agree with Meg Ham APN's assessment and recommendation. There is no evidence of any active bleeding at this point. She has recently been extubated for respiratory failure. She has possible sepsis and is anemic, but there is no evidence of GI bleeding. Her overall prognosis is poor if she has dementia. RECOMMENDATIONS: 1. Follow serial hematocrits. 2. Will need a swallowing eval when she is ready to start p.o. feedings to rule out aspiration. 3. Transfuse packed red blood cells as needed. 4. Agree with palliative care evaluation. Hiram Brown MD
--- NOTE | 2017-10-15 00:32 | CP.PCM.PN ---
Subjective - Date & Time of Evaluation Date of Evaluation: 10/15/17 Time of Evaluation: 00:18 - Subjective Subjective: called by nurse to see pt is tachypneac and lethargic. pt has multiple medical problems including s/p cardiac arrest sepsis profound dementia, dka , pt was extubated on and transferred to tel pt is tel hold . pt is in severe respiratory distress gasping for respiration.pulse ox is 99 %hr is 102 bp110 systolic . Objective - Vital Signs/Intake and Output Vital Signs (last 24 hours): Temp Pulse Resp BP Pulse Ox 97.3 F L 99 H 24 130/65 100 10/14/17 16:30 10/14/17 17:00 10/14/17 17:00 10/14/17 17:00 10/14/17 17:00 Intake and Output: 10/14/17 10/15/17 18:59 06:59 Intake Total 2300 Output Total 150 Balance 2150 - Medications Medications: Current Medications Albuterol/Ipratropium (Duoneb 3 Mg/0.5 Mg (3 Ml) Ud) 3 ml IH [id number] [facility] Last Admin: 10/14/17 20:55 Dose: 3 ml Albuterol/Ipratropium (Duoneb 3 Mg/0.5 Mg (3 Ml) Ud) 3 ml IH Q2H PRN PRN Reason: Shortness of Breath Doxercalciferol (Hectorol) 1 mcg IV DAILY [facility] Last Admin: 10/14/17 10:15 Dose: 1 mcg Famotidine (Pepcid) 10 mg IVP DAILY [facility]ON[facility] Last Admin: 10/14/17 10:14 Dose: 10 mg Doxycycline Hyclate 100 mg/ (Sodium Chloride) 100 mls @ 100 mls/hr IVPB Q12 JONNY PRN Reason: Protocol Last Admin: 10/14/17 22:00 Dose: 100 mls/hr Insulin Human Regular 100 (units/ Sodium Chloride) 100 mls @ 4 mls/hr IV .Q24H PRN; Protocol; 4 UNITS/HR PRN Reason: TITRATE PER MD ORDER Last Admin: 10/12/17 23:06 Dose: 4 units/hr, 4 mls/hr Meropenem 500 mg/ Sodium (Chloride) 50 mls @ 100 mls/hr IVPB DAILY JONNY PRN Reason: Protocol Last Admin: 10/14/17 10:21 Dose: 100 mls/hr Dextrose/Sodium Chloride (Dextrose 5%/0.9% Ns 1000 Ml) 1,000 mls @ 75 mls/hr IV .[id number] [facility] Last Admin: 10/14/17 18:07 Dose: 75 mls/hr Insulin Human Regular (Humulin R Med) 0 units SC ACHS [facility] PRN Reason: Protocol Last Admin: 10/14/17 22:41 Dose: Not Given Mupirocin (Bactroban Ointment) 0 gm NS BID [facility] Stop: 10/17/17 10:01 Last Admin: 10/14/17 18:08 Dose: 1 applic - Labs Labs: 10/14/17 06:40 10/14/17 06:40 PT 24.9 SECONDS (9.4-12.5) H 10/14/17 06:40 INR 2.13 (0.93-1.08) H 10/14/17 06:40 APTT 31.2 Seconds (25.1-36.5) 10/14/17 06:40 - Constitutional Appears: In Acute Distress - ENT Exam ENT Exam: Mucous Membranes Moist - Respiratory Exam Respiratory Exam: Decreased Breath Sounds, Rales - Rectal Exam Rectal Exam: Deferred - Neurological Exam Neurological Exam: Altered - Skin Skin Exam: Warm Assessment and Plan - Assessment and Plan (Free Text) Assessment: respiratory failure /hypoxia /high anion gap metabolic acidosis. Plan: abg stat . pt is intubated with 7.5 ET tube. chest xray stat. transerred to icu. dr hernandez is also here seen the pt.
[2017-10-15] MEDS ORDERED: Propofol 10 mg/ml Inj (20 ML) IVP ONE (00:33)
--- NOTE | 2017-10-15 01:12 | CP.PCM.PN ---
Subjective - Date & Time of Evaluation Date of Evaluation: 10/15/17 Time of Evaluation: 03:07 - Subjective Subjective: A blood gas result was presented to me which was 7.26/28/46/12.6/ on 28% which was done because patient was tachypnic and lethargic. Patient was having labored breathing. Had BP -62/24,90/55. Patient was intubated with size 7.5 ETT, position was confirmed with direct visualization, CO2 detector .CXR showed tip of ETT at carinii .ETT was pulled back. Medical record was reviewed. This 77 year old woman was admitted from [facility] with hypoxia, sepsis, hypernatremia, dehydration. Has PMH of HTN, dementia, rectal mass, gi bleeding,right hip replacement. Objective - Vital Signs/Intake and Output Vital Signs (last 24 hours): Temp Pulse Resp BP Pulse Ox 97.3 F L 99 H 24 130/65 100 10/14/17 16:30 10/14/17 17:00 10/14/17 17:00 10/14/17 17:00 10/14/17 17:00 Intake and Output: 10/14/17 10/15/17 18:59 06:59 Intake Total 2300 Output Total 150 Balance 2150 - Medications Medications: Current Medications Albuterol/Ipratropium (Duoneb 3 Mg/0.5 Mg (3 Ml) Ud) 3 ml IH [id number] [facility] Last Admin: 10/14/17 20:55 Dose: 3 ml Albuterol/Ipratropium (Duoneb 3 Mg/0.5 Mg (3 Ml) Ud) 3 ml IH Q2H PRN PRN Reason: Shortness of Breath Doxercalciferol (Hectorol) 1 mcg IV DAILY [facility] Last Admin: 10/14/17 10:15 Dose: 1 mcg Famotidine (Pepcid) 10 mg IVP DAILY [facility]ONNY Last Admin: 10/14/17 10:14 Dose: 10 mg Doxycycline Hyclate 100 mg/ (Sodium Chloride) 100 mls @ 100 mls/hr IVPB Q12 [facility]ONNY PRN Reason: Protocol Last Admin: 10/14/17 22:00 Dose: 100 mls/hr Insulin Human Regular 100 (units/ Sodium Chloride) 100 mls @ 4 mls/hr IV .Q24H PRN; Protocol; 4 UNITS/HR PRN Reason: TITRATE PER MD ORDER Last Admin: 10/12/17 23:06 Dose: 4 units/hr, 4 mls/hr Meropenem 500 mg/ Sodium (Chloride) 50 mls @ 100 mls/hr IVPB DAILY [facility] PRN Reason: Protocol Last Admin: 10/14/17 10:21 Dose: 100 mls/hr Dextrose/Sodium Chloride (Dextrose 5%/0.9% Ns 1000 Ml) 1,000 mls @ 75 mls/hr IV .[id number] [facility] Last Admin: 10/14/17 18:07 Dose: 75 mls/hr Insulin Human Regular (Humulin R Med) 0 units SC ACHS [facility] PRN Reason: Protocol Last Admin: 10/14/17 22:41 Dose: Not Given Mupirocin (Bactroban Ointment) 0 gm NS BID [facility] Stop: 10/17/17 10:01 Last Admin: 10/14/17 18:08 Dose: 1 applic Propofol (Diprivan) 25 mg IVP ONCE ONE Stop: 10/15/17 00:34 - Labs Labs: 10/14/17 06:40 10/14/17 06:40 PT 24.9 SECONDS (9.4-12.5) H 10/14/17 06:40 INR 2.13 (0.93-1.08) H 10/14/17 06:40 APTT 31.2 Seconds (25.1-36.5) 10/14/17 06:40 Micro Results 10/10/17 16:30 Blood Blood Culture - Preliminary NO GROWTH AFTER 4 DAYS 10/10/17 16:00 Blood Blood Culture - Preliminary NO GROWTH AFTER 4 DAYS 10/12/17 07:51 Urine,Alexandre Urine Culture - Final Yeast Species 10/12/17 06:00 Trachasp Gram Stain - Final 10/12/17 06:00 Trachasp Sputum Culture - Final Methicillin Resistant S Aureus Klebsiella Pneumoniae Ssp Pneu 10/11/17 05:00 Blood Blood Culture - Preliminary NO GROWTH AFTER 3 DAYS 10/11/17 04:45 Blood Blood Culture - Preliminary NO GROWTH AFTER 3 DAYS 10/12/17 22:40 Stool C. difficile Antigen & Toxin A,B (M - Final 10/10/17 18:00 Urine,Clean Catch Urine Culture - Final 10-50,000 CFU/ML. MULTIPLE SPECIES. PROBABLE CONTAMINATION. 10/11/17 06:00 Naris MRSA Culture (Admit) - Final MRSA DETECTED Most Recent Lab Values WBC 11.4 10^3/ul (4.5-11.0) H 10/14/17 06:40 RBC 3.09 10^6/uL (3.5-6.1) L 10/14/17 06:40 Hgb 8.6 g/dL (12.0-16.0) L 10/14/17 06:40 Hct 27.4 % (36.0-48.0) L 10/14/17 06:40 MCV 88.7 fl (80.0-105.0) D 10/14/17 06:40 MCH 27.8 pg (25.0-35.0) 10/14/17 06:40 MCHC 31.4 g/dl (31.0-37.0) 10/14/17 06:40 RDW 14.5 % (11.5-14.5) 10/14/17 06:40 Plt Count 26 10^3/uL (120.0-450.0) L* 10/14/17 06:40 MPV 11.5 fl (7.0-11.0) H 10/12/17 21:50 Gran % 76.7 % (50.0-68.0) H 10/14/17 06:40 Lymph % (Auto) 16.7 % (22.0-35.0) L 10/14/17 06:40 [place] % (Auto) 6.5 % (1.0-6.0) H 10/14/17 06:40 Eos % (Auto) 0.1 % (1.5-5.0) L 10/14/17 06:40 Baso % (Auto) 0.0 % (0.0-3.0) 10/14/17 06:40 Gran # 8.71 (1.4-6.5) H 10/14/17 06:40 Lymph # (Auto) 1.9 (1.2-3.4) 10/14/17 06:40 [place] # (Auto) 0.7 (0.1-0.6) H 10/14/17 06:40 Eos # (Auto) 0.0 (0.0-0.7) 10/14/17 06:40 Baso # (Auto) 0.00 K/mm3 (0.0-2.0) 10/14/17 06:40 Platelet Evaluation Low (NORMAL) 10/14/17 06:40 ESR 5 mm/hr (0.0-20.0) 10/11/17 04:45 PT 24.9 SECONDS (9.4-12.5) H 10/14/17 06:40 INR 2.13 (0.93-1.08) H 10/14/17 06:40 APTT 31.2 Seconds (25.1-36.5) 10/14/17 06:40 pCO2 28 mm/Hg (35-45) L 10/14/17 23:30 pO2 46 mm/Hg (30-55) 10/15/17 02:50 HCO3 12.6 mmol/L (21-28) L 10/14/17 23:30 ABG pH 7.26 (7.35-7.45) L 10/14/17 23:30 ABG Total CO2 13.5 mmol.L (22-28) L 10/14/17 23:30 ABG O2 Saturation 81.1 % (95-98) L 10/14/17 23:30 ABG O2 Content 10.9 ML/dl (15-23) L 10/13/17 14:00 ABG Base Excess -13.0 mmol/L (-2.0-3.0) L 10/14/17 23:30 ABG Hemoglobin 8.3 g/dL (11.7-17.4) L 10/13/17 14:00 ABG Carboxyhemoglobin 1.5 % (0.5-1.5) 10/13/17 14:00 POC ABG HHb (Measured) 5.2 % (0-5) H 10/13/17 14:00 ABG Methemoglobin 0.7 % (0.0-3.0) 10/13/17 14:00 ABG O2 Capacity 11.5 mL/dl (16-24) L 10/13/17 14:00 ABG Potassium 4.6 mmol/L (3.6-5.2) 10/14/17 23:30 VBG pH 7.20 (7.32-7.43) L 10/15/17 02:50 VBG pCO2 35.0 (40-60) L 10/15/17 02:50 VBG HCO3 13.7 mmol/l (21-28) L 10/15/17 02:50 VBG Total CO2 14.8 mmol.L (22-28) L 10/15/17 02:50 VBG O2 Sat (Calc) 80.0 % (40-65) H 10/15/17 02:50 VBG Base Excess -13.4 mmol/L (0.0-2.0) L 10/15/17 02:50 VBG Potassium 5.3 mmol/L (3.6-5.2) H 10/15/17 02:50 Hgb O2 Saturation 92.7 % (95.0-98.0) L 10/13/17 14:00 Sodium 134.0 mmol/L (132-148) 10/15/17 02:50 Chloride 104.0 mmol/L (98-107) 10/15/17 02:50 Glucose 258 mg/dl (65-105) H 10/15/17 02:50 Lactate 7.4 mmol/L (0.7-2.1) H* 10/15/17 02:50 Mechanical Rate 16 10/12/17 08:30 FiO2 21.0 % 10/15/17 02:50 Tidal Volume 350 10/12/17 08:30 PEEP 5 10/13/17 09:15 Pressure Support 5 10/13/17 09:15 Sodium 140 mmol/L (132-148) 10/14/17 06:40 Potassium 4.6 mmol/L (3.6-5.0) 10/14/17 06:40 Chloride 104 mmol/L (98-107) 10/14/17 06:40 Carbon Dioxide 19 mmol/L (21-33) L 10/14/17 06:40 Anion Gap 22 (10-20) H 10/14/17 06:40 BUN 100 mg/dL (7-21) H 10/14/17 06:40 Creatinine 4.0 mg/dl (0.7-1.2) H 10/14/17 06:40 Est GFR ( Amer) 13 10/14/17 06:40 Est GFR (Non-Af Amer) 11 10/14/17 06:40 POC Glucose (mg/dL) 167 mg/dL (65-110) H 10/14/17 22:04 Random Glucose 201 mg/dL (70-110) H 10/14/17 06:40 Hemoglobin A1c 11.7 % (4.2-6.5) H 10/11/17 11:50 Serum Osmolality 405 mosm/kg (272-300) H 10/10/17 16:00 Calcium 6.6 mg/dL (8.4-10.5) L* 10/14/17 06:40 Phosphorus 6.6 mg/dL (2.5-4.5) H 10/11/17 13:30 Magnesium 2.4 mg/dL (1.7-2.2) H 10/11/17 13:30 Total Bilirubin 1.3 mg/dL (0.2-1.3) 10/14/17 06:40 AST 850 U/L (14-36) H D 10/14/17 06:40 ALT 668 U/L (7-56) H 10/14/17 06:40 Alkaline Phosphatase 131 U/L (38-126) H D 10/14/17 06:40 Lactate Dehydrogenase 706 U/L (333-699) H 10/10/17 16:00 Total Creatine Kinase 120 U/L (35-230) 10/10/17 16:00 Troponin I 0.12 ng/mL D 10/11/17 04:45 C-Reactive Protein 67.60 mg/L (0.0-9.9) H 10/11/17 04:45 Total Protein 4.7 g/dL (5.8-8.3) L 10/14/17 06:40 Albumin 2.2 g/dL (3.0-4.8) L 10/14/17 06:40 Globulin 2.5 gm/dL 10/14/17 06:40 Albumin/Globulin Ratio 0.9 (1.1-1.8) L 10/14/17 06:40 Triglycerides 93 mg/dL (35-160) 10/12/17 06:20 Cholesterol < 50 mg/dL (130-200) L 10/12/17 06:20 LDL Cholesterol Direct < 30 mg/dL (0-129) 10/12/17 06:20 HDL Cholesterol 12 mg/dL (29-60) L 10/12/17 06:20 Lipase 451 U/L (23-300) H 10/10/17 16:00 25-OH Vitamin D Total 46.3 NG/ML (30.0-100.0) 10/11/17 20:30 Procalcitonin 7.72 NG/ML (0.19-0.49) H 10/14/17 12:00 PTH Intact Whole Molec 512 pg/mL (14-64) H 10/11/17 20:30 Arterial Blood Potassium 4.6 mmol/L (3.6-5.2) 10/14/17 23:30 Venous Blood Potassium 5.3 mmol/L (3.6-5.2) H 10/15/17 02:50 Urine Color Dark yellow (YELLOW) 10/12/17 23:25 Urine Appearance Cloudy (CLEAR) 10/12/17 23:25 Urine pH 7.0 (4.7-8.0) 10/12/17 23:25 Ur Specific [place] 1.020 (1.005-1.035) 10/12/17 23:25 Urine Protein 100 mg/dL (<30 mg/dL) H 10/12/17 23:25 Urine Glucose (UA) Negative mg/dL (NEGATIVE) 10/12/17 23:25 Urine Ketones Negative mg/dL (NEGATIVE) 10/12/17 23:25 Urine Blood Large (NEGATIVE) H 10/12/17 23:25 Urine Nitrate Negative (NEGATIVE) 10/12/17 23:25 Urine Bilirubin Negative (NEGATIVE) 10/12/17 23:25 Urine Urobilinogen 0.2 E.U./dL (<1 E.U./dL) 10/12/17 23:25 Ur Leukocyte Esterase Moderate Niranjan/uL (NEGATIVE) H 10/12/17 23:25 Urine RBC Tntc /hpf (0-2) 10/12/17 23:25 Urine WBC 2 - 5 /hpf (0-6) 10/12/17 23:25 Ur Epithelial Cells 6 - 8 /hpf (0-5) 10/12/17 23:25 Amorphous Sediment Few 10/10/17 16:40 Urine Bacteria Many (NEG) 10/12/17 23:25 Urine Other Mucus 10/12/17 23:25 Hepatitis A IgM Ab Negative (NEGATIVE) 10/11/17 04:45 Hep Bs Antigen Negative (NEGATIVE) 10/11/17 04:45 Hep B Core IgM Ab Negative (NEGATIVE) 10/11/17 04:45 Hepatitis C Antibody Reactive (NEGATIVE) 10/11/17 04:45 Blood Type O POSITIVE 10/12/17 15:00 Antibody Screen Negative 10/12/17 15:00 Antibody Identification Non Specific Antibody 10/12/17 15:00 Crossmatch See Detail 10/12/17 15:00 BBK History Checked Patient has bt 10/12/17 15:00 - Constitutional Appears: In Acute Distress - Head Exam Head Exam: ATRAUMATIC, NORMAL INSPECTION, NORMOCEPHALIC - Eye Exam Eye Exam: Normal appearance - ENT Exam Additional comments: Dry blood in mouth. NGT + - Neck Exam Neck Exam: Normal Inspection - Respiratory Exam Respiratory Exam: Accessory Muscle Use (positive.), Clear to Ausculation Bilateral, Respiratory Distress - Cardiovascular Exam Cardiovascular Exam: Tachycardia. absent: JVD - GI/Abdominal Exam GI & Abdominal Exam: absent: Distended - Rectal Exam Rectal Exam: Deferred - Exam Additional comments: Deferred. - Extremities Exam Extremities Exam: Normal Inspection - Back Exam Back Exam: NORMAL INSPECTION - Neurological Exam Neurological Exam: Altered - Psychiatric Exam Psychiatric exam: Depressed Additional comments: Not responding. - Skin Skin Exam: Normal Color Assessment and Plan - Assessment and Plan (Free Text) Assessment: Hypoxia. Hypotension. Respiratory distress. Sepsis. Dementia. HTN. Renal insufficiency. Elevated LFT's. Anemia. Thrombocytopenia. UTI. R/O FL. R/O PE. Plan: Normal saline bolus 250 CC was given . Continue fluid at 75 CC / hr. Mechanical ventilation. CXR-Post intubation. Serial EKG,trop. D-Dimer (CXR -Neg., Why hypoxia?) Continue present management. CCT spent:40 minutes. D-dimer is 5512.Consider Renal insufficiency. Pulse ox is 100 % now. PE Less likely. Trop-0.07. K-5.4.
[2017-10-15] MEDS: Albuterol-Ipratrop 3 mg / 0.5 (3 ml) UD IH SCH ×4 (02:45→21:44)
[2017-10-15 03:00] LABS: VENOUS BLOOD GAS BASE EXCESS -13.4 mmol/L (0.0-2.0); VENOUS BLOOD GAS PO2 46 mm/Hg (30-55)
[2017-10-15 04:06] LABS: GRAN % 70.9 % (50.0-68.0); HEMOGLOBIN 8.8 g/dL (12.0-16.0); LYMPH # 1.4 (1.2-3.4); LYMPH % 15.7 % (22.0-35.0); MEAN CELL VOLUME 87.1 fl (80.0-105.0); MEAN CORPUSCULAR HEMOGLOBIN 27.6 pg (25.0-35.0); MEAN CORPUSCULAR HGB CONC 31.7 g/dl (31.0-37.0); MONO # 1.2 (0.1-0.6); MONO % 13.4 % (1.0-6.0); RBC 3.19 10^6/uL (3.5-6.1); RED CELL DISTRIBUTION WIDTH 14.5 % (11.5-14.5); WHITE BLOOD COUNT 8.9 10^3/ul (4.5-11.0)
[2017-10-15 04:08] LABS: PLATELET COUNT 33 10^3/uL (120.0-450.0)
[2017-10-15 04:27] LABS: INR 2.24 (0.93-1.08); PARTIAL THROMBOPLASTIN TIME 31.3 Seconds (25.1-36.5); PROTHROMBIN TIME 26.2 SECONDS (9.4-12.5)
[2017-10-15 04:53] LABS: TROPONIN I 0.07 ng/mL
[2017-10-15 05:33] LABS: ALB/GLOB RATIO 0.8 (1.1-1.8); ALBUMIN 2.1 g/dL (3.0-4.8)
[2017-10-15] MEDS: Propofol 10 mg/ml Inj (20 ML) ONE ×2 (05:39)
--- NOTE | 2017-10-15 05:46 | CP.PCM.PN ---
Subjective - Date & Time of Evaluation Date of Evaluation: 10/15/17 Time of Evaluation: 05:43 - Subjective Subjective: Ms Spear was seen and examined at the ICU. She is awake, remains on mechanical ventilator on PRVC mode, and able to follow simple commands. She is able to answer questions using nodding or shaking her head. She denies any headache, dizziness, nausea, or vomiting. She is able to follow simple commands such as opening her mouth, squeezing her left hand, and moving her bilateral lower extremities. Her right hand remains flaccid. and a wrist restraint on her left wrist for patient safety. She remains on cardizem drip due to her uncontrolled a -fib. She was re-intubated last night due to low pO2. Objective - Vital Signs/Intake and Output Vital Signs (last 24 hours): Temp Pulse Resp BP Pulse Ox 98.4 F 105 H 26 H 103/47 L 100 10/14/17 20:00 10/15/17 02:00 10/15/17 00:20 10/15/17 02:00 10/15/17 02:00 Intake and Output: 10/14/17 10/15/17 18:59 06:59 Intake Total 2300 Output Total 150 Balance 2150 - Medications Medications: Current Medications Albuterol/Ipratropium (Duoneb 3 Mg/0.5 Mg (3 Ml) Ud) 3 ml IH [id number] [facility] Last Admin: 10/14/17 20:55 Dose: 3 ml Albuterol/Ipratropium (Duoneb 3 Mg/0.5 Mg (3 Ml) Ud) 3 ml IH Q2H PRN PRN Reason: Shortness of Breath Doxercalciferol (Hectorol) 1 mcg IV DAILY [facility] Last Admin: 10/14/17 10:15 Dose: 1 mcg Famotidine (Pepcid) 10 mg IVP DAILY [facility] Last Admin: 10/14/17 10:14 Dose: 10 mg Doxycycline Hyclate 100 mg/ (Sodium Chloride) 100 mls @ 100 mls/hr IVPB Q12 JONNY PRN Reason: Protocol Last Admin: 10/14/17 22:00 Dose: 100 mls/hr Insulin Human Regular 100 (units/ Sodium Chloride) 100 mls @ 4 mls/hr IV .Q24H PRN; Protocol; 4 UNITS/HR PRN Reason: TITRATE PER MD ORDER Last Admin: 10/12/17 23:06 Dose: 4 units/hr, 4 mls/hr Meropenem 500 mg/ Sodium (Chloride) 50 mls @ 100 mls/hr IVPB DAILY [facility] PRN Reason: Protocol Last Admin: 10/14/17 10:21 Dose: 100 mls/hr Dextrose/Sodium Chloride (Dextrose 5%/0.9% Ns 1000 Ml) 1,000 mls @ 75 mls/hr IV .[id number] [facility] Last Admin: 10/14/17 18:07 Dose: 75 mls/hr Insulin Human Regular (Humulin R Med) 0 units SC ACHS JONNY PRN Reason: Protocol Last Admin: 10/14/17 22:41 Dose: Not Given Mupirocin (Bactroban Ointment) 0 gm NS BID [facility] Stop: 10/17/17 10:01 Last Admin: 10/14/17 18:08 Dose: 1 applic - Labs Labs: 10/15/17 03:45 10/15/17 03:45 PT 26.2 SECONDS (9.4-12.5) H 10/15/17 03:45 INR 2.24 (0.93-1.08) H 10/15/17 03:45 APTT 31.3 Seconds (25.1-36.5) 10/15/17 03:45 - Constitutional Appears: No Acute Distress - Head Exam Head Exam: NORMAL INSPECTION - Eye Exam Pupil Exam: Miosis, PERRL - Neurological Exam Neurological Exam: Alert, Awake Neuro motor strength exam: Left Upper Extremity: 3, Right Upper Extremity: 0, Left Lower Extremity: 2/1, Right Lower Extremity: 2/1 Additional comments: She is alert, awake, able to follow simple commands. Sensation is intact. Assessment and Plan (1) Encephalopathy acute Assessment & Plan: Case discussed with Dr. Diehl, continue all current medical regimen. Recommend to treat any underlying electrolyte abnormalities including coagulation issues. Maintain head of bed at least 30 degrees angle. Recommend MRI of the brain when patient is stable to determine right arm flaccidity. Status: Acute
[2017-10-15] MEDS ORDERED: Sod Polystyrene Sulf 15 gm/60 ml Susp PO ONE (06:28)
[2017-10-15] MEDS: Insulin Reg-MEDIUM-Coverage SC SCH ×7 (08:00→22:32)
[2017-10-15] MEDS ORDERED: Insulin Regular 1 UNITS/0.01 ML ML IV ONE (08:26)
--- NOTE | 2017-10-15 09:09 | RAD ---
HISTORY: sob COMPARISON: Yesterday FINDINGS: LUNGS: Patient has been intubated since prior study. Endotracheal tube is noted in the distal trachea just proximal to the right main bronchus. Tube should be retracted 1-2 centimeters. There is interval improvement aeration within the right lung with mild residual subsegmental atelectasis remaining. There is also mild improvement in aeration at the left lung base with mild residual patchy alveolar density noted. PLEURA: There is decreased density at the right costophrenic angle which may represent decrease right pleural effusion. No pneumothorax is seen. NG tube is seen in the stomach. CARDIOVASCULAR: Decreased congestion. OSSEOUS STRUCTURES: No significant abnormalities. VISUALIZED UPPER ABDOMEN: Normal. OTHER FINDINGS: None. IMPRESSION: Status post intubation. Endotracheal tube is seen in the distal trachea just proximal to the right main bronchus. Interval improvement aeration bilaterally. Exam was tagged into the critical red folder utilizing normal department protocol.
[2017-10-15] MEDS: Sodium Bicarbonate 8.4% 150 MEQ in Dextrose 5% In Water 1,000 ML IV SCH ×2 (09:11→22:37)
[2017-10-15] MEDS ORDERED: Dextrose 50% SYRINGE Inj (50 ml) IVP ONE (09:11)
[2017-10-15] MEDS ORDERED: Vancomycin 1.5 GM in Sodium Chloride 0.9% 500 ML IVPB ONE (10:18)
[2017-10-15] MEDS: Meropenem 500 MG in Sodium Chloride 0.9% 50 ML IVPB SCH (10:33)
[2017-10-15] MEDS: Doxercalciferol 4 mcg/2 ml Inj IV SCH (10:37)
--- NOTE | 2017-10-15 12:08 | CP.PCM.PN ---
Subjective - Date & Time of Evaluation Date of Evaluation: 10/15/17 Time of Evaluation: 11:20 - Subjective Subjective: Noted events overnight - patient became tachypneic and more lethargic and patient is now back on the ventilator, no fevers. Objective - Vital Signs/Intake and Output Vital Signs (last 24 hours): Temp Pulse Resp BP Pulse Ox 97.9 F 109 H 26 H 105/37 L 100 10/15/17 04:00 10/15/17 06:30 10/15/17 00:20 10/15/17 06:30 10/15/17 06:30 Intake and Output: 10/15/17 10/15/17 06:59 18:59 Intake Total 1400 Output Total 150 Balance 1250 - Medications Medications: Current Medications Albuterol/Ipratropium (Duoneb 3 Mg/0.5 Mg (3 Ml) Ud) 3 ml IH [id number] [facility] Last Admin: 10/15/17 08:48 Dose: 3 ml Albuterol/Ipratropium (Duoneb 3 Mg/0.5 Mg (3 Ml) Ud) 3 ml IH Q2H PRN PRN Reason: Shortness of Breath Doxercalciferol (Hectorol) 1 mcg IV DAILY [facility] Last Admin: 10/14/17 10:15 Dose: 1 mcg Famotidine (Pepcid) 10 mg IVP DAILY [facility] Last Admin: 10/15/17 09:22 Dose: 10 mg Doxycycline Hyclate 100 mg/ (Sodium Chloride) 100 mls @ 100 mls/hr IVPB Q12 JONNY PRN Reason: Protocol Last Admin: 10/15/17 09:23 Dose: 100 mls/hr Meropenem 500 mg/ Sodium (Chloride) 50 mls @ 100 mls/hr IVPB DAILY JONNY PRN Reason: Protocol Last Admin: 10/14/17 10:21 Dose: 100 mls/hr Sodium Bicarbonate 150 meq/ (Dextrose) 1,150 mls @ 150 mls/hr IV .[id number] [facility] Last Admin: 10/15/17 09:11 Dose: 150 mls/hr Vancomycin HCl 1.5 gm/ Sodium (Chloride) 500 mls @ 167 mls/hr IVPB ONCE ONE PRN Reason: Protocol Stop: 10/15/17 13:17 Insulin Human Regular (Humulin R Med) 0 units SC ACHS JONNY PRN Reason: Protocol Last Admin: 10/15/17 09:13 Dose: 1 units Mupirocin (Bactroban Ointment) 0 gm NS BID JONNY Stop: 10/17/17 10:01 Last Admin: 10/14/17 18:08 Dose: 1 applic - Labs Labs: 10/15/17 03:45 10/15/17 03:45 PT 26.2 SECONDS (9.4-12.5) H 10/15/17 03:45 INR 2.24 (0.93-1.08) H 10/15/17 03:45 APTT 31.3 Seconds (25.1-36.5) 10/15/17 03:45 - Constitutional Appears: Other (intubated and sedated) - Head Exam Head Exam: NORMAL INSPECTION - ENT Exam Additional comments: ET tube in place - Respiratory Exam Respiratory Exam: Decreased Breath Sounds - Cardiovascular Exam Cardiovascular Exam: +S1, +S2 - GI/Abdominal Exam GI & Abdominal Exam: Soft. absent: Tenderness Assessment and Plan - Assessment and Plan (Free Text) Plan: Assessment severe sepsis with VDRF and acute encephalopathy and acute on chronic renal failure due to left lower lobe HCAP methicillin-resistant Staph aureus and Kelbsiella in the sputum HTN S/P right hip replacement dementia Plan continue Merrem and Doxycycline day 4 and give another dose of IV Vancomycin; still awaiting urine Legionella Ag and rapid Flu test will get Vanco trough overall prognosis is poor will continue to monitor clinically
[2017-10-15 12:20] LABS: ARTERIAL BLOOD GAS HCO3 12.7 mmol/L (21-28); ARTERIAL BLOOD GAS O2 SAT 99.2 % (95-98); ARTERIAL BLOOD GAS PCO2 23 mm/Hg (35-45); ARTERIAL BLOOD GAS PH 7.35 (7.35-7.45); ARTERIAL BLOOD GAS TCO2 13.4 mmol.L (22-28)
--- NOTE | 2017-10-15 15:25 | PN ---
DATE: 10/15/2017 SUBJECTIVE The patient required intubation last night due to impending respiratory failure. She does not have a DNR. She is resting comfortably. PHYSICAL EXAMINATION: VITAL SIGNS: Reveal temperature of 97.3, blood pressure of 141/65, heart rate of 121. HEENT: Reveals sclerae to be white. There is an endotracheal tube in her mouth. NECK: Supple. CHEST: Reveals distant breath sounds. HEART: Reveals a regular rate and rhythm. ABDOMEN: Soft, nontender. EXTREMITIES: Show no edema. LABORATORY DATA: Revealed white blood cell count of 8.9, hemoglobin 8.8, platelet count 33,000. Chemistries reveal potassium 5.4, bicarb of 14, BUN 115, creatinine 4.2. IMPRESSION: 1. Respiratory failure in this 77-year-old female with dementia. The patient was transferred from the snf for possible sepsis and lethargy. There is no evidence of any overt gastrointestinal bleeding. 2. Anemia. 3. Acute on chronic renal failure. 4. Dementia. RECOMMENDATIONS: 1. Continue supportive care. 2. The patient's prognosis is extremely poor. I would consider palliative care evaluation. Hiram Brown MD
--- NOTE | 2017-10-15 16:45 | CP.CCUPN ---
<Soto Moura - Last Filed: 10/15/17 18:28> CCU Subjective - Physician Review Subjective (Free Text): Patient seen and examined at bedside intubated ntoon sedation. ROS not obtained as patient is intubated. CCU Objective - Vital Signs / Intake & Output Vital Signs (Last 4 hours): Vital Signs Pulse 10/15/17 14:00 98 H Intake and Output (Last 8hrs): Intake & Output 10/15/17 10/15/17 10/15/17 06:59 14:59 22:59 Intake Total 1400 Output Total 150 Balance 1250 Intake: IV 1100 Left Femoral 1100 Other 300 Output: Urine 150 Urethral (Alexandre) 150 Other: Voiding Method Indwelling Catheter # Bowel Movements 2 - Physical Exam Head: Positive for: Atraumatic, Normocephalic Pupils: Positive for: Non-Reactive Conjunctiva: Positive for: Icteric Mouth: Positive for: Moist Mucous Membranes, Other (intubated) Neck: Positive for: Normal Range of Motion Respiratory/Chest: Positive for: Rales. Negative for: Respiratory Distress, Accessory Muscle Use, Wheezes Cardiovascular: Positive for: Regular Rate and Rhythm, Normal S1, S2. Negative for: Murmurs Abdomen: Negative for: Tenderness, Distention, Peritoneal Signs Back: Positive for: Normal Inspection Upper Extremity: Positive for: Cyanosis (digits of hand bilaterally). Negative for: Edema Lower Extremity: Positive for: Normal Inspection, Cyanosis. Negative for: Edema Neurological: Negative for: CN II-XII Intact, Speech Normal, Normal Cerebellar Funct Skin: Positive for: Cold, Other (cyanotic lower extremities and digits of upper extremities). Negative for: Rashes Psychiatric: Negative for: Oriented x 3 (oriented x 2) - Medications Active Medications: Active Medications Generic Name Dose Route Start Last Admin Trade Name Freq PRN Reason Stop Dose Admin Albuterol/Ipratropium 3 ml 10/11/17 02:00 10/15/17 14:48 Duoneb 3 Mg/0.5 Mg (3 Ml) Ud IH 3 ml [id number] JONNY Administration Albuterol/Ipratropium 3 ml 10/10/17 23:20 Duoneb 3 Mg/0.5 Mg (3 Ml) Ud IH Q2H PRN Shortness of Breath Doxercalciferol 1 mcg 10/12/17 10:00 10/15/17 10:37 Hectorol IV 1 mcg DAILY JONNY Administration Famotidine 10 mg 10/12/17 12:00 10/15/17 09:22 Pepcid IVP 10 mg DAILY JONNY Administration Doxycycline Hyclate 100 mg/ 100 mls @ 100 mls/hr 10/11/17 22:00 10/15/17 09: 23 Sodium Chloride IVPB 100 mls/hr Q12 JONNY Administration Protocol Meropenem 500 mg/ Sodium 50 mls @ 100 mls/hr 10/12/17 10:00 10/15/17 10:33 Chloride IVPB 100 mls/hr DAILY JONNY Administration Protocol Sodium Bicarbonate 150 meq/ 1,150 mls @ 150 mls/hr 10/15/17 08:00 10/15/17 09 :11 Dextrose IV 150 mls/hr .[id number] JONNY Administration Insulin Human Regular 0 units 10/11/17 22:00 10/15/17 12:02 Humulin R Med SC 3 units ACHS JONNY Administration Protocol Mupirocin 0 gm 10/12/17 18:00 10/15/17 10:33 Bactroban Ointment NS 10/17/17 10:01 1 applic BID JONNY Administration - Patient Studies Lab Studies: Microbiology Studies 10/14/17 12:45 Urine Culture - Final Urine,Catheterized Yeast Species 10/11/17 05:00 Blood Culture - Preliminary Blood NO GROWTH AFTER 4 DAYS 10/11/17 04:45 Blood Culture - Preliminary Blood NO GROWTH AFTER 4 DAYS 10/12/17 07:51 Urine Culture - Final Urine,Alexandre Yeast Species Lab Studies 10/15/17 10/15/17 10/15/17 Range/Units 12:10 10:58 09:40 WBC (4.5-11.0) 10^3/ul RBC (3.5-6.1) 10^6/uL Hgb (12.0-16.0) g/dL Hct (36.0-48.0) % MCV (80.0-105.0) fl MCH (25.0-35.0) pg MCHC (31.0-37.0) g/dl RDW (11.5-14.5) % Plt Count (120.0-450.0) 10^3/uL Gran % (50.0-68.0) % Lymph % (Auto) (22.0-35.0) % [place] % (Auto) (1.0-6.0) % Eos % (Auto) (1.5-5.0) % Baso % (Auto) (0.0-3.0) % Gran # (1.4-6.5) Lymph # (Auto) (1.2-3.4) [place] # (Auto) (0.1-0.6) Eos # (Auto) (0.0-0.7) Baso # (Auto) (0.0-2.0) K/mm3 PT (9.4-12.5) SECONDS INR (0.93-1.08) APTT (25.1-36.5) Seconds D-Dimer, Quantitative (0-243) ng/mL pCO2 23 L (35-45) mm/Hg pO2 149.0 H (80-100) mm/Hg HCO3 12.7 L (21-28) mmol/L ABG pH 7.35 (7.35-7.45) ABG Total CO2 13.4 L (22-28) mmol.L ABG O2 Saturation 99.2 H (95-98) % ABG Base Excess -10.9 L (-2.0-3.0) mmol/L ABG Potassium 4.5 (3.6-5.2) mmol/L VBG pH (7.32-7.43) VBG pCO2 (40-60) VBG HCO3 (21-28) mmol/l VBG Total CO2 (22-28) mmol.L VBG O2 Sat (Calc) (40-65) % VBG Base Excess (0.0-2.0) mmol/L VBG Potassium (3.6-5.2) mmol/L Sodium 134.0 (132-148) mmol/L Chloride 106.0 (98-107) mmol/L Glucose 362 H (65-105) mg/dl Lactate 7.2 H* (0.7-2.1) mmol/L FiO2 60.0 % PEEP 5 Pressure Support 5 Potassium (3.6-5.0) mmol/L Carbon Dioxide (21-33) mmol/L Anion Gap (10-20) BUN (7-21) mg/dL Creatinine (0.7-1.2) mg/dl Est GFR ( Amer) Est GFR (Non-Af Amer) POC Glucose (mg/dL) 237 H (65-110) mg/dL Random Glucose (70-110) mg/dL Calcium (8.4-10.5) mg/dL Total Bilirubin (0.2-1.3) mg/dL AST (14-36) U/L ALT (7-56) U/L Alkaline Phosphatase (38-126) U/L Troponin I 0.06 ng/mL Total Protein (5.8-8.3) g/dL Albumin (3.0-4.8) g/dL Globulin gm/dL Albumin/Globulin Ratio (1.1-1.8) Procalcitonin (0.19-0.49) NG/ML Arterial Blood Potassium 4.5 (3.6-5.2) mmol/L Venous Blood Potassium (3.6-5.2) mmol/L 10/15/17 10/15/17 10/15/17 Range/Units 07:39 03:45 03:45 WBC 8.9 D (4.5-11.0) 10^3/ul RBC 3.19 L (3.5-6.1) 10^6/uL Hgb 8.8 L (12.0-16.0) g/dL Hct 27.8 L (36.0-48.0) % MCV 87.1 (80.0-105.0) fl MCH 27.6 (25.0-35.0) pg MCHC 31.7 (31.0-37.0) g/dl RDW 14.5 (11.5-14.5) % Plt Count 33 L* (120.0-450.0) 10^3/uL Gran % 70.9 H (50.0-68.0) % Lymph % (Auto) 15.7 L (22.0-35.0) % [place] % (Auto) 13.4 H (1.0-6.0) % Eos % (Auto) 0.0 L (1.5-5.0) % Baso % (Auto) 0.0 (0.0-3.0) % Gran # 6.30 (1.4-6.5) Lymph # (Auto) 1.4 (1.2-3.4) [place] # (Auto) 1.2 H (0.1-0.6) Eos # (Auto) 0.0 (0.0-0.7) Baso # (Auto) 0.00 (0.0-2.0) K/mm3 PT 26.2 H (9.4-12.5) SECONDS INR 2.24 H (0.93-1.08) APTT 31.3 (25.1-36.5) Seconds D-Dimer, Quantitative 5512 H (0-243) ng/mL pCO2 (35-45) mm/Hg pO2 (80-100) mm/Hg HCO3 (21-28) mmol/L ABG pH (7.35-7.45) ABG Total CO2 (22-28) mmol.L ABG O2 Saturation (95-98) % ABG Base Excess (-2.0-3.0) mmol/L ABG Potassium (3.6-5.2) mmol/L VBG pH (7.32-7.43) VBG pCO2 (40-60) VBG HCO3 (21-28) mmol/l VBG Total CO2 (22-28) mmol.L VBG O2 Sat (Calc) (40-65) % VBG Base Excess (0.0-2.0) mmol/L VBG Potassium (3.6-5.2) mmol/L Sodium (132-148) mmol/L Chloride (98-107) mmol/L Glucose (65-105) mg/dl Lactate (0.7-2.1) mmol/L FiO2 % PEEP Pressure Support Potassium (3.6-5.0) mmol/L Carbon Dioxide (21-33) mmol/L Anion Gap (10-20) BUN (7-21) mg/dL Creatinine (0.7-1.2) mg/dl Est GFR ( Amer) Est GFR (Non-Af Amer) POC Glucose (mg/dL) 212 H (65-110) mg/dL Random Glucose (70-110) mg/dL Calcium (8.4-10.5) mg/dL Total Bilirubin (0.2-1.3) mg/dL AST (14-36) U/L ALT (7-56) U/L Alkaline Phosphatase (38-126) U/L Troponin I ng/mL Total Protein (5.8-8.3) g/dL Albumin (3.0-4.8) g/dL Globulin gm/dL Albumin/Globulin Ratio (1.1-1.8) Procalcitonin (0.19-0.49) NG/ML Arterial Blood Potassium (3.6-5.2) mmol/L Venous Blood Potassium (3.6-5.2) mmol/L 10/15/17 10/15/17 10/14/17 Range/Units 03:45 02:50 23:30 WBC (4.5-11.0) 10^3/ul RBC (3.5-6.1) 10^6/uL Hgb (12.0-16.0) g/dL Hct (36.0-48.0) % MCV (80.0-105.0) fl MCH (25.0-35.0) pg MCHC (31.0-37.0) g/dl RDW (11.5-14.5) % Plt Count (120.0-450.0) 10^3/uL Gran % (50.0-68.0) % Lymph % (Auto) (22.0-35.0) % [place] % (Auto) (1.0-6.0) % Eos % (Auto) (1.5-5.0) % Baso % (Auto) (0.0-3.0) % Gran # (1.4-6.5) Lymph # (Auto) (1.2-3.4) [place] # (Auto) (0.1-0.6) Eos # (Auto) (0.0-0.7) Baso # (Auto) (0.0-2.0) K/mm3 PT (9.4-12.5) SECONDS INR (0.93-1.08) APTT (25.1-36.5) Seconds D-Dimer, Quantitative (0-243) ng/mL pCO2 28 L (35-45) mm/Hg pO2 46 46.0 L (80-100) mm/Hg HCO3 12.6 L (21-28) mmol/L ABG pH 7.26 L (7.35-7.45) ABG Total CO2 13.5 L (22-28) mmol.L ABG O2 Saturation 81.1 L (95-98) % ABG Base Excess -13.0 L (-2.0-3.0) mmol/L ABG Potassium 4.6 (3.6-5.2) mmol/L VBG pH 7.20 L (7.32-7.43) VBG pCO2 35.0 L (40-60) VBG HCO3 13.7 L (21-28) mmol/l VBG Total CO2 14.8 L (22-28) mmol.L VBG O2 Sat (Calc) 80.0 H (40-65) % VBG Base Excess -13.4 L (0.0-2.0) mmol/L VBG Potassium 5.3 H (3.6-5.2) mmol/L Sodium 136 134.0 137.0 (132-148) mmol/L Chloride 104 104.0 109.0 H (98-107) mmol/L Glucose 258 H 265 H (65-105) mg/dl Lactate 7.4 H* 5.4 H* (0.7-2.1) mmol/L FiO2 21.0 28.0 % PEEP Pressure Support Potassium 5.4 H (3.6-5.0) mmol/L Carbon Dioxide 14 L (21-33) mmol/L Anion Gap 24 H (10-20) BUN 115 H (7-21) mg/dL Creatinine 4.2 H (0.7-1.2) mg/dl Est GFR ( Amer) 12 Est GFR (Non-Af Amer) 10 POC Glucose (mg/dL) (65-110) mg/dL Random Glucose 245 H (70-110) mg/dL Calcium 7.0 L (8.4-10.5) mg/dL Total Bilirubin 1.7 H (0.2-1.3) mg/dL AST 451 H D (14-36) U/L ALT 542 H (7-56) U/L Alkaline Phosphatase 109 (38-126) U/L Troponin I 0.07 D ng/mL Total Protein 4.7 L (5.8-8.3) g/dL Albumin 2.1 L (3.0-4.8) g/dL Globulin 2.6 gm/dL Albumin/Globulin Ratio 0.8 L (1.1-1.8) Procalcitonin (0.19-0.49) NG/ML Arterial Blood Potassium 4.6 (3.6-5.2) mmol/L Venous Blood Potassium 5.3 H (3.6-5.2) mmol/L 10/14/17 10/14/17 Range/Units 22:04 12:00 WBC (4.5-11.0) 10^3/ul RBC (3.5-6.1) 10^6/uL Hgb (12.0-16.0) g/dL Hct (36.0-48.0) % MCV (80.0-105.0) fl MCH (25.0-35.0) pg MCHC (31.0-37.0) g/dl RDW (11.5-14.5) % Plt Count (120.0-450.0) 10^3/uL Gran % (50.0-68.0) % Lymph % (Auto) (22.0-35.0) % [place] % (Auto) (1.0-6.0) % Eos % (Auto) (1.5-5.0) % Baso % (Auto) (0.0-3.0) % Gran # (1.4-6.5) Lymph # (Auto) (1.2-3.4) [place] # (Auto) (0.1-0.6) Eos # (Auto) (0.0-0.7) Baso # (Auto) (0.0-2.0) K/mm3 PT (9.4-12.5) SECONDS INR (0.93-1.08) APTT (25.1-36.5) Seconds D-Dimer, Quantitative (0-243) ng/mL pCO2 (35-45) mm/Hg pO2 (80-100) mm/Hg HCO3 (21-28) mmol/L ABG pH (7.35-7.45) ABG Total CO2 (22-28) mmol.L ABG O2 Saturation (95-98) % ABG Base Excess (-2.0-3.0) mmol/L ABG Potassium (3.6-5.2) mmol/L VBG pH (7.32-7.43) VBG pCO2 (40-60) VBG HCO3 (21-28) mmol/l VBG Total CO2 (22-28) mmol.L VBG O2 Sat (Calc) (40-65) % VBG Base Excess (0.0-2.0) mmol/L VBG Potassium (3.6-5.2) mmol/L Sodium (132-148) mmol/L Chloride (98-107) mmol/L Glucose (65-105) mg/dl Lactate (0.7-2.1) mmol/L FiO2 % PEEP Pressure Support Potassium (3.6-5.0) mmol/L Carbon Dioxide (21-33) mmol/L Anion Gap (10-20) BUN (7-21) mg/dL Creatinine (0.7-1.2) mg/dl Est GFR ( Amer) Est GFR (Non-Af Amer) POC Glucose (mg/dL) 167 H (65-110) mg/dL Random Glucose (70-110) mg/dL Calcium (8.4-10.5) mg/dL Total Bilirubin (0.2-1.3) mg/dL AST (14-36) U/L ALT (7-56) U/L Alkaline Phosphatase (38-126) U/L Troponin I ng/mL Total Protein (5.8-8.3) g/dL Albumin (3.0-4.8) g/dL Globulin gm/dL Albumin/Globulin Ratio (1.1-1.8) Procalcitonin 7.72 H (0.19-0.49) NG/ML Arterial Blood Potassium (3.6-5.2) mmol/L Venous Blood Potassium (3.6-5.2) mmol/L Laboratory Results - last 24 hr 10/14/17 10/14/17 10/14/17 12:00 22:04 23:30 WBC RBC Hgb Hct MCV MCH MCHC RDW Plt Count Gran % Lymph % (Auto) [place] % (Auto) Eos % (Auto) Baso % (Auto) Gran # Lymph # (Auto) [place] # (Auto) Eos # (Auto) Baso # (Auto) PT INR APTT D-Dimer, Quantitative pCO2 28 L pO2 46.0 L HCO3 12.6 L ABG pH 7.26 L ABG Total CO2 13.5 L ABG O2 Saturation 81.1 L ABG Base Excess -13.0 L ABG Potassium 4.6 VBG pH VBG pCO2 VBG HCO3 VBG Total CO2 VBG O2 Sat (Calc) VBG Base Excess VBG Potassium Sodium 137.0 Chloride 109.0 H Glucose 265 H Lactate 5.4 H* FiO2 28.0 PEEP Pressure Support Potassium Carbon Dioxide Anion Gap BUN Creatinine Est GFR ( Amer) Est GFR (Non-Af Amer) POC Glucose (mg/dL) 167 H Random Glucose Calcium Total Bilirubin AST ALT Alkaline Phosphatase Troponin I Total Protein Albumin Globulin Albumin/Globulin Ratio Procalcitonin 7.72 H Arterial Blood Potassium 4.6 Venous Blood Potassium 10/15/17 10/15/17 10/15/17 02:50 03:45 03:45 WBC RBC Hgb Hct MCV MCH MCHC RDW Plt Count Gran % Lymph % (Auto) [place] % (Auto) Eos % (Auto) Baso % (Auto) Gran # Lymph # (Auto) [place] # (Auto) Eos # (Auto) Baso # (Auto) PT 26.2 H INR 2.24 H APTT 31.3 D-Dimer, Quantitative 5512 H pCO2 pO2 46 HCO3 ABG pH ABG Total CO2 ABG O2 Saturation ABG Base Excess ABG Potassium VBG pH 7.20 L VBG pCO2 35.0 L VBG HCO3 13.7 L VBG Total CO2 14.8 L VBG O2 Sat (Calc) 80.0 H VBG Base Excess -13.4 L VBG Potassium 5.3 H Sodium 134.0 136 Chloride 104.0 104 Glucose 258 H Lactate 7.4 H* FiO2 21.0 PEEP Pressure Support Potassium 5.4 H Carbon Dioxide 14 L Anion Gap 24 H BUN 115 H Creatinine 4.2 H Est GFR ( Amer) 12 Est GFR (Non-Af Amer) 10 POC Glucose (mg/dL) Random Glucose 245 H Calcium 7.0 L Total Bilirubin 1.7 H AST 451 H D ALT 542 H Alkaline Phosphatase 109 Troponin I 0.07 D Total Protein 4.7 L Albumin 2.1 L Globulin 2.6 Albumin/Globulin Ratio 0.8 L Procalcitonin Arterial Blood Potassium Venous Blood Potassium 5.3 H 10/15/17 10/15/17 10/15/17 03:45 07:39 09:40 WBC 8.9 D RBC 3.19 L Hgb 8.8 L Hct 27.8 L MCV 87.1 MCH 27.6 MCHC 31.7 RDW 14.5 Plt Count 33 L* Gran % 70.9 H Lymph % (Auto) 15.7 L [place] % (Auto) 13.4 H Eos % (Auto) 0.0 L Baso % (Auto) 0.0 Gran # 6.30 Lymph # (Auto) 1.4 [place] # (Auto) 1.2 H Eos # (Auto) 0.0 Baso # (Auto) 0.00 PT INR APTT D-Dimer, Quantitative pCO2 pO2 HCO3 ABG pH ABG Total CO2 ABG O2 Saturation ABG Base Excess ABG Potassium VBG pH VBG pCO2 VBG HCO3 VBG Total CO2 VBG O2 Sat (Calc) VBG Base Excess VBG Potassium Sodium Chloride Glucose Lactate FiO2 PEEP Pressure Support Potassium Carbon Dioxide Anion Gap BUN Creatinine Est GFR ( Amer) Est GFR (Non-Af Amer) POC Glucose (mg/dL) 212 H Random Glucose Calcium Total Bilirubin AST ALT Alkaline Phosphatase Troponin I 0.06 Total Protein Albumin Globulin Albumin/Globulin Ratio Procalcitonin Arterial Blood Potassium Venous Blood Potassium 10/15/17 10/15/17 10:58 12:10 WBC RBC Hgb Hct MCV MCH MCHC RDW Plt Count Gran % Lymph % (Auto) [place] % (Auto) Eos % (Auto) Baso % (Auto) Gran # Lymph # (Auto) [place] # (Auto) Eos # (Auto) Baso # (Auto) PT INR APTT D-Dimer, Quantitative pCO2 23 L pO2 149.0 H HCO3 12.7 L ABG pH 7.35 ABG Total CO2 13.4 L ABG O2 Saturation 99.2 H ABG Base Excess -10.9 L ABG Potassium 4.5 VBG pH VBG pCO2 VBG HCO3 VBG Total CO2 VBG O2 Sat (Calc) VBG Base Excess VBG Potassium Sodium 134.0 Chloride 106.0 Glucose 362 H Lactate 7.2 H* FiO2 60.0 PEEP 5 Pressure Support 5 Potassium Carbon Dioxide Anion Gap BUN Creatinine Est GFR ( Amer) Est GFR (Non-Af Amer) POC Glucose (mg/dL) 237 H Random Glucose Calcium Total Bilirubin AST ALT Alkaline Phosphatase Troponin I Total Protein Albumin Globulin Albumin/Globulin Ratio Procalcitonin Arterial Blood Potassium 4.5 Venous Blood Potassium EKG/Cardiology Studies: Cardiology / EKG Studies 10/15/17 03:00 ELECTROCARDIOGRAM Q6H Comment: Reason For Exam: hypotension 10/15/17 09:00 ELECTROCARDIOGRAM Q6H Comment: Reason For Exam: hypotension 10/15/17 15:00 ELECTROCARDIOGRAM Q6H Comment: Reason For Exam: hypotension Fingerstick Blood Sugar Results: 237 Review of Systems - Review of Systems Systems not reviewed;Unavailable: Altered Mental Status Assessment/Plan - Assessment and Plan (Free Text) Assessment: 77 F with past medical history of HTN, dementia, s/p right hip replacement presents from [facility] (in the [facility] since [facility] due to the hip surgery) for AMS and lethargy s/p cardiac arrest found to be in Hyperglycemic Hyperosmolar Nonketotic Coma (HONK), Hypernatremic, and septic shock secondary to HCAP with current resolution. Neuro: -Baseline severe dementia CV: -Maintain MAP > 65 -Continue to hold HTN medications Pulm: -Maintain SPO2 > 90 % -Continue with duonebs -Patient on Pressure support FiO2 60% 10/21 GI: -OG tube in place -free water flushes discontinued as patient is no longer hypernamtremic Renal: -Monitor I&O -Monitor and replete electrolytes as needed -Hypernatremia resolved ID: -ID consulted for recs -Monitor lactate; mild uptrend -Continue doxycycline, merrem, and vancomycin -Continue with mupirocin -Trach aspiration positive for MRSA and Klebsiella pneumoniae Endo: -HgA1C 11.7; insulin sliding scale-medium -Maintain euglycemia and normothermia Hematologic -H&H stable Skin -Cyanotic lower extremities bilaterally as well as digits of hands bilaterally as a result of sepsis <Marcell Matias - Last Filed: 10/18/17 15:25> CCU Objective - Vital Signs / Intake & Output Vital Signs (Last 4 hours): Vital Signs Temp Pulse Resp BP Pulse Ox 10/18/17 14:00 111 H 14 87/42 L 100 10/18/17 13:45 97.7 F 13 84/41 L 10/18/17 13:43 99 H 13 84/41 L 100 10/18/17 13:00 101 H 14 80/45 L 100 10/18/17 12:00 97.7 F 111 H 17 102/47 L 98 10/18/17 11:45 176 H 26 H Intake and Output (Last 8hrs): Intake & Output 10/18/17 10/18/1710/18/18 06:59 14:59 22:59 Intake Total 155 Output Total 30 Balance 125 Intake: IV 0 Left Hand 0 Oral 0 Tube Feeding 0 TPN/PPN 0 Blood Product 0 Lipid 0 Albumin 0 Other 155 Output: Urine 30 Urethral (Alexandre) 30 Stool 0 Urine/Stool Mix 0 Emesis 0 Oral Regurgitation 0 Other 0 Other: # Voids Urethral (Alexandre) 0 # Bowel Movements 1 - Medications Active Medications: Active Medications Generic Name Dose Route Start Last Admin Trade Name Freq PRN Reason Stop Dose Admin Albuterol/Ipratropium 3 ml 10/10/17 23:20 Duoneb 3 Mg/0.5 Mg (3 Ml) Ud IH Q2H PRN Shortness of Breath Morphine Sulfate 30 mls @ 1 mls/hr 10/18/17 11:49 10/18/17 13:37 Morphine Junior Bookkeeper 1 Mg/Ml IV 1 mg/hr PRN PRN 1 mls/hr OUTPATIENT SURGERY RN PER MD ORDER Administration Protocol 1 MG/HR Morphine Sulfate 2 mg 10/16/17 10:40 Morphine IV Q6H PRN Pain, moderate (4-7) Scopolamine 1 patch 10/18/17 12:30 10/18/17 13:17 Transderm-Scop TD 1 patch Q3D JONNY Administration Vitamin A 1 ea 10/17/17 07:00 10/18/17 09:18 Vitamin A & D Oint Ud Foilpak TOP 1 ea QSHIFT JONNY Administration - Patient Studies Lab Studies: Lab Studies 10/18/17 10/18/17 10/18/17 Range/Units 11:19 09:10 07:31 WBC (4.5-11.0) 10^3/ul RBC (3.5-6.1) 10^6/uL Hgb (12.0-16.0) g/dL Hct (36.0-48.0) % MCV (80.0-105.0) fl MCH (25.0-35.0) pg MCHC (31.0-37.0) g/dl RDW (11.5-14.5) % Plt Count (120.0-450.0) 10^3/uL Gran % (50.0-68.0) % Lymph % (Auto) (22.0-35.0) % [place] % (Auto) (1.0-6.0) % Eos % (Auto) (1.5-5.0) % Baso % (Auto) (0.0-3.0) % Gran # (1.4-6.5) Lymph # (Auto) (1.2-3.4) [place] # (Auto) (0.1-0.6) Eos # (Auto) (0.0-0.7) Baso # (Auto) (0.0-2.0) K/mm3 Neutrophils % (Manual) (50.0-70.0) % Band Neutrophils % (0-2) % Lymphocytes % (Manual) (22.0-35.0) % Monocytes % (Manual) (1.0-6.0) % Nucleated RBC % % Poikilocytosis (manual Anisocytosis (manual) Microcytosis (manual) Target Cells Ovalocytes Shayne Cells Sodium (132-148) mmol/L Potassium (3.6-5.0) mmol/L Chloride (98-107) mmol/L Carbon Dioxide (21-33) mmol/L Anion Gap (10-20) BUN (7-21) mg/dL Creatinine (0.7-1.2) mg/dl Est GFR ( Amer) Est GFR (Non-Af Amer) POC Glucose (mg/dL) 119 H 124 H (65-110) mg/dL Random Glucose (70-110) mg/dL Calcium (8.4-10.5) mg/dL Phosphorus (2.5-4.5) mg/dL Magnesium (1.7-2.2) mg/dL Total Bilirubin (0.2-1.3) mg/dL AST (14-36) U/L ALT (7-56) U/L Alkaline Phosphatase (38-126) U/L Total Protein (5.8-8.3) g/dL Albumin (3.0-4.8) g/dL Globulin gm/dL Albumin/Globulin Ratio (1.1-1.8) Random Vancomycin 46.7 H* (20-40) ug/mL 10/18/17 10/18/17 10/18/17 Range/Units 06:30 06:30 04:11 WBC 15.0 H (4.5-11.0) 10^3/ul RBC 2.94 L (3.5-6.1) 10^6/uL Hgb 8.1 L (12.0-16.0) g/dL Hct 23.6 L (36.0-48.0) % MCV 80.3 (80.0-105.0) fl MCH 27.6 (25.0-35.0) pg MCHC 34.3 (31.0-37.0) g/dl RDW 14.5 (11.5-14.5) % Plt Count 103 L (120.0-450.0) 10^3/uL Gran % 75.1 H (50.0-68.0) % Lymph % (Auto) 17.4 L (22.0-35.0) % [place] % (Auto) 7.3 H (1.0-6.0) % Eos % (Auto) 0.1 L (1.5-5.0) % Baso % (Auto) 0.1 (0.0-3.0) % Gran # 11.26 H (1.4-6.5) Lymph # (Auto) 2.6 (1.2-3.4) [place] # (Auto) 1.1 H (0.1-0.6) Eos # (Auto) 0.0 (0.0-0.7) Baso # (Auto) 0.02 (0.0-2.0) K/mm3 Neutrophils % (Manual) 78 H (50.0-70.0) % Band Neutrophils % 1 (0-2) % Lymphocytes % (Manual) 16 L (22.0-35.0) % Monocytes % (Manual) 5 (1.0-6.0) % Nucleated RBC % 1 % Poikilocytosis (manual 1+ Anisocytosis (manual) 1+ Microcytosis (manual) 2+ Target Cells Slight Ovalocytes Slight [place] Cells 1+ Sodium 137 (132-148) mmol/L Potassium 4.5 (3.6-5.0) mmol/L Chloride 100 (98-107) mmol/L Carbon Dioxide 19 L (21-33) mmol/L Anion Gap 24 H (10-20) BUN 147 H* (7-21) mg/dL Creatinine 5.4 H (0.7-1.2) mg/dl Est GFR ( Amer) 9 Est GFR (Non-Af Amer) 8 POC Glucose (mg/dL) 143 H (65-110) mg/dL Random Glucose 123 H (70-110) mg/dL Calcium 8.8 (8.4-10.5) mg/dL Phosphorus 10.1 H (2.5-4.5) mg/dL Magnesium 1.7 (1.7-2.2) mg/dL Total Bilirubin 5.8 H (0.2-1.3) mg/dL AST 192 H D (14-36) U/L ALT 275 H (7-56) U/L Alkaline Phosphatase 128 H (38-126) U/L Total Protein 4.8 L (5.8-8.3) g/dL Albumin 2.0 L (3.0-4.8) g/dL Globulin 2.7 gm/dL Albumin/Globulin Ratio 0.7 L (1.1-1.8) Random Vancomycin (20-40) ug/mL 10/18/17 10/17/17 10/17/17 Range/Units 00:08 19:52 16:21 WBC (4.5-11.0) 10^3/ul RBC (3.5-6.1) 10^6/uL Hgb (12.0-16.0) g/dL Hct (36.0-48.0) % MCV (80.0-105.0) fl MCH (25.0-35.0) pg MCHC (31.0-37.0) g/dl RDW (11.5-14.5) % Plt Count (120.0-450.0) 10^3/uL Gran % (50.0-68.0) % Lymph % (Auto) (22.0-35.0) % [place] % (Auto) (1.0-6.0) % Eos % (Auto) (1.5-5.0) % Baso % (Auto) (0.0-3.0) % Gran # (1.4-6.5) Lymph # (Auto) (1.2-3.4) [place] # (Auto) (0.1-0.6) Eos # (Auto) (0.0-0.7) Baso # (Auto) (0.0-2.0) K/mm3 Neutrophils % (Manual) (50.0-70.0) % Band Neutrophils % (0-2) % Lymphocytes % (Manual) (22.0-35.0) % Monocytes % (Manual) (1.0-6.0) % Nucleated RBC % % Poikilocytosis (manual Anisocytosis (manual) Microcytosis (manual) Target Cells Ovalocytes [place] Cells Sodium (132-148) mmol/L Potassium (3.6-5.0) mmol/L Chloride (98-107) mmol/L Carbon Dioxide (21-33) mmol/L Anion Gap (10-20) BUN (7-21) mg/dL Creatinine (0.7-1.2) mg/dl Est GFR ( Amer) Est GFR (Non-Af Amer) POC Glucose (mg/dL) 150 H 85 108 (65-110) mg/dL Random Glucose (70-110) mg/dL Calcium (8.4-10.5) mg/dL Phosphorus (2.5-4.5) mg/dL Magnesium (1.7-2.2) mg/dL Total Bilirubin (0.2-1.3) mg/dL AST (14-36) U/L ALT (7-56) U/L Alkaline Phosphatase (38-126) U/L Total Protein (5.8-8.3) g/dL Albumin (3.0-4.8) g/dL Globulin gm/dL Albumin/Globulin Ratio (1.1-1.8) Random Vancomycin (20-40) ug/mL 10/17/17 10/17/17 Range/Units 11:31 07:58 WBC (4.5-11.0) 10^3/ul RBC (3.5-6.1) 10^6/uL Hgb (12.0-16.0) g/dL Hct (36.0-48.0) % MCV (80.0-105.0) fl MCH (25.0-35.0) pg MCHC (31.0-37.0) g/dl RDW (11.5-14.5) % Plt Count (120.0-450.0) 10^3/uL Gran % (50.0-68.0) % Lymph % (Auto) (22.0-35.0) % [place] % (Auto) (1.0-6.0) % Eos % (Auto) (1.5-5.0) % Baso % (Auto) (0.0-3.0) % Gran # (1.4-6.5) Lymph # (Auto) (1.2-3.4) [place] # (Auto) (0.1-0.6) Eos # (Auto) (0.0-0.7) Baso # (Auto) (0.0-2.0) K/mm3 Neutrophils % (Manual) (50.0-70.0) % Band Neutrophils % (0-2) % Lymphocytes % (Manual) (22.0-35.0) % Monocytes % (Manual) (1.0-6.0) % Nucleated RBC % % Poikilocytosis (manual Anisocytosis (manual) Microcytosis (manual) Target Cells Ovalocytes [place] Cells Sodium (132-148) mmol/L Potassium (3.6-5.0) mmol/L Chloride (98-107) mmol/L Carbon Dioxide (21-33) mmol/L Anion Gap (10-20) BUN (7-21) mg/dL Creatinine (0.7-1.2) mg/dl Est GFR ( Amer) Est GFR (Non-Af Amer) POC Glucose (mg/dL) 115 H 106 (65-110) mg/dL Random Glucose (70-110) mg/dL Calcium (8.4-10.5) mg/dL Phosphorus (2.5-4.5) mg/dL Magnesium (1.7-2.2) mg/dL Total Bilirubin (0.2-1.3) mg/dL AST (14-36) U/L ALT (7-56) U/L Alkaline Phosphatase (38-126) U/L Total Protein (5.8-8.3) g/dL Albumin (3.0-4.8) g/dL Globulin gm/dL Albumin/Globulin Ratio (1.1-1.8) Random Vancomycin (20-40) ug/mL Laboratory Results - last 24 hr 10/17/17 10/17/17 10/17/17 07:58 11:31 16:21 WBC RBC Hgb Hct MCV MCH MCHC RDW Plt Count Gran % Lymph % (Auto) [place] % (Auto) Eos % (Auto) Baso % (Auto) Gran # Lymph # (Auto) [place] # (Auto) Eos # (Auto) Baso # (Auto) Neutrophils % (Manual) Band Neutrophils % Lymphocytes % (Manual) Monocytes % (Manual) Nucleated RBC % Poikilocytosis (manual Anisocytosis (manual) Microcytosis (manual) Target Cells Ovalocytes [place] Cells Sodium Potassium Chloride Carbon Dioxide Anion Gap BUN Creatinine Est GFR ( Amer) Est GFR (Non-Af Amer) POC Glucose (mg/dL) 106 115 H 108 Random Glucose Calcium Phosphorus Magnesium Total Bilirubin AST ALT Alkaline Phosphatase Total Protein Albumin Globulin Albumin/Globulin Ratio Random Vancomycin 10/17/17 10/18/17 10/18/17 19:52 00:08 04:11 WBC RBC Hgb Hct MCV MCH MCHC RDW Plt Count Gran % Lymph % (Auto) [place] % (Auto) Eos % (Auto) Baso % (Auto) Gran # Lymph # (Auto) [place] # (Auto) Eos # (Auto) Baso # (Auto) Neutrophils % (Manual) Band Neutrophils % Lymphocytes % (Manual) Monocytes % (Manual) Nucleated RBC % Poikilocytosis (manual Anisocytosis (manual) Microcytosis (manual) Target Cells Ovalocytes Shayne Cells Sodium Potassium Chloride Carbon Dioxide Anion Gap BUN Creatinine Est GFR ( Amer) Est GFR (Non-Af Amer) POC Glucose (mg/dL) 85 150 H 143 H Random Glucose Calcium Phosphorus Magnesium Total Bilirubin AST ALT Alkaline Phosphatase Total Protein Albumin Globulin Albumin/Globulin Ratio Random Vancomycin 10/18/17 10/18/17 10/18/17 06:30 06:30 07:31 WBC 15.0 H RBC 2.94 L Hgb 8.1 L Hct 23.6 L MCV 80.3 MCH 27.6 MCHC 34.3 RDW 14.5 Plt Count 103 L Gran % 75.1 H Lymph % (Auto) 17.4 L [place] % (Auto) 7.3 H Eos % (Auto) 0.1 L Baso % (Auto) 0.1 Gran # 11.26 H Lymph # (Auto) 2.6 [place] # (Auto) 1.1 H Eos # (Auto) 0.0 Baso # (Auto) 0.02 Neutrophils % (Manual) 78 H Band Neutrophils % 1 Lymphocytes % (Manual) 16 L Monocytes % (Manual) 5 Nucleated RBC % 1 Poikilocytosis (manual 1+ Anisocytosis (manual) 1+ Microcytosis (manual) 2+ Target Cells Slight Ovalocytes Slight Shayne Cells 1+ Sodium 137 Potassium 4.5 Chloride 100 Carbon Dioxide 19 L Anion Gap 24 H BUN 147 H* Creatinine 5.4 H Est GFR ( Amer) 9 Est GFR (Non-Af Amer) 8 POC Glucose (mg/dL) 124 H Random Glucose 123 H Calcium 8.8 Phosphorus 10.1 H Magnesium 1.7 Total Bilirubin 5.8 H AST 192 H D ALT 275 H Alkaline Phosphatase 128 H Total Protein 4.8 L Albumin 2.0 L Globulin 2.7 Albumin/Globulin Ratio 0.7 L Random Vancomycin 10/18/17 10/18/17 09:10 11:19 WBC RBC Hgb Hct MCV MCH MCHC RDW Plt Count Gran % Lymph % (Auto) [place] % (Auto) Eos % (Auto) Baso % (Auto) Gran # Lymph # (Auto) [place] # (Auto) Eos # (Auto) Baso # (Auto) Neutrophils % (Manual) Band Neutrophils % Lymphocytes % (Manual) Monocytes % (Manual) Nucleated RBC % Poikilocytosis (manual Anisocytosis (manual) Microcytosis (manual) Target Cells Ovalocytes Shayne Cells Sodium Potassium Chloride Carbon Dioxide Anion Gap BUN Creatinine Est GFR ( Amer) Est GFR (Non-Af Amer) POC Glucose (mg/dL) 119 H Random Glucose Calcium Phosphorus Magnesium Total Bilirubin AST ALT Alkaline Phosphatase Total Protein Albumin Globulin Albumin/Globulin Ratio Random Vancomycin 46.7 H* Attending/Attestation - Attestation I have personally seen and examined this patient.: Yes I have fully participated in the care of the patient.: Yes I have reviewed all pertinent clinical information: Yes Notes (Text): 10/18/17 15:20 77 yo recovering from HRF. Will continue conservative fluid and 02 managmenet. enteral nutrition, dvt/gi prophylaxis, abx. If possible OOB to chair. dvt/gi prophylaxis ccm time 40 min
--- NOTE | 2017-10-15 22:43 | CARD ---
APPROVED REPORT EKG Measurement Heart [id number] <Conclusion> Accelerated Junctional rhythm Cannot rule out Inferior infarct, age undetermined Abnormal ECG
--- NOTE | 2017-10-15 22:44 | CARD ---
APPROVED REPORT EKG Measurement Heart [id number] <Conclusion> Sinus tachycardia Low voltage QRS Cannot rule out Anterior infarct, age undetermined Abnormal ECG
[2017-10-16] MEDS: Albuterol-Ipratrop 3 mg / 0.5 (3 ml) UD IH SCH ×4 (02:43→19:52)
[2017-10-16] MEDS: Sodium Bicarbonate 8.4% 150 MEQ in Dextrose 5% In Water 1,000 ML IV SCH (05:54)
[2017-10-16 07:04] LABS: HEMOGLOBIN 8.2 g/dL (12.0-16.0); MEAN CELL VOLUME 81.4 fl (80.0-105.0); MEAN CORPUSCULAR HEMOGLOBIN 27.7 pg (25.0-35.0); PLATELET COUNT 37 10^3/uL (120.0-450.0); RBC 2.96 10^6/uL (3.5-6.1); RED CELL DISTRIBUTION WIDTH 14.1 % (11.5-14.5); WHITE BLOOD COUNT 7.2 10^3/ul (4.5-11.0)
[2017-10-16 07:22] LABS: INR 2.14 (0.93-1.08); PARTIAL THROMBOPLASTIN TIME 34.1 Seconds (25.1-36.5)
--- NOTE | 2017-10-16 07:33 | PN ---
DATE: 10/15/2017 SUBJECTIVE: The patient is seen and examined at bedside. She was intubated overnight. She was tachypneic and hypoxemic. At present time, the patient is on pressure support 5/5 with FiO2 of 60%. She is tolerating very well the tidal volume from 400 to 500. Her rapid shallow breathing index is 47. PHYSICAL EXAMINATION: VITAL SIGNS: Blood pressure 122/65, heart rate 101, oxygen saturation 100%, end-tidal CO2 on the monitor 20, and respiratory rate 26. HEENT: Head and neck atraumatic. LUNGS: Clear to auscultation bilaterally. HEART: Regular rate and rhythm. S1 and S2 normal. ABDOMEN: Soft, nontender and nondistended. MUSCULOSKELETAL: No C/C/E. NEUROLOGIC: The patient has not been moving spontaneously. SKIN: Color moist. PSYCHIATRIC: Patient has advanced dementia. LABORATORY DATA: WBC 3.9, hemoglobin 8.8, platelet count 33. INR 2.24. Sodium 136, potassium 5.4, chloride 104, carbon dioxide 14, BUN 115, creatinine 4.2. Glucose 212. AST 451, ALT 452. Troponin 0.07. ABG 7.20 (prior to intubation). Lactic acid 7.4. ABG after intubation is pending. MEDICATIONS: DuoNeb every 6, Hectorol, doxycycline, Pepcid, insulin 10 units IV/D50W for high potassium, meropenem, propofol,, vancomycin. ASSESSMENT AND PLAN: This is a 77-year-old lady with advanced dementia who presented with community-acquired pneumonia/healthcare-associated pneumonia, complicated by distributive shock with multiorgan system failure. The patient initially substantially improved--weaned vasopressors and got extubated. Nevertheless, her acute tubular necrosis/OSWALDO progressed. She developed metabolic acidosis and some respiratory distress requiring intubation overnight. At this time, we will proceed with protective lung ventilation strategy, daily sedation vacation, and daily weaning attempts. We will switch her to bicarbonate drip and give bolus of normal saline. We will continue with antibiotics. We will continue with enteral nutrition and GI prophylaxis. Head of bed elevated more than 35 degrees, oral hygiene. The patient's thrombocytopenia is most likely related to recent critical illness and sepsis. Nephrology service is following the patient as well. We will try to avoid nephrotoxins, hyperchloremia and maintain mean arterial pressure of >65. Maintain euvolemia and euglycemia. At present time, I think we need to re-discuss advanced directives and goal of care with the patient. If they would like be aggressive, PEG, trach and LTAC should be considered, otherwise, comfort care appears to be reasonable ccm time 40 min Marcell Matias MD [employer]
[2017-10-16 07:46] LABS: ARTERIAL BLOOD GAS HCO3 22.9 mmol/L (21-28); ARTERIAL BLOOD GAS PCO2 30 mm/Hg (35-45); ARTERIAL BLOOD GAS PH 7.49 (7.35-7.45); ARTERIAL BLOOD GAS TCO2 23.8 mmol.L (22-28)
[2017-10-16 07:55] LABS: ALB/GLOB RATIO 0.8 (1.1-1.8); CALCIUM 6.6 mg/dL (8.4-10.5)
[2017-10-16] MEDS: Insulin Reg-MEDIUM-Coverage SC SCH ×2 (08:06→12:03)
--- NOTE | 2017-10-16 08:58 | RAD ---
HISTORY: Intubated. COMPARISON: Multiple serial examinations preceding the most recent study: October 15, 2017. FINDINGS: LUNGS: Improved aeration at the lung bases. PLEURA: Stable pleural effusions. CARDIOVASCULAR: Unchanged OSSEOUS STRUCTURES: No significant abnormalities. VISUALIZED UPPER ABDOMEN: Normal. OTHER FINDINGS: Stable, satisfactory position ventilatory, and nasogastric apparatus. IMPRESSION: Interval improvement with respect aeration of the lungs. Persistent pleural effusions.
--- NOTE | 2017-10-16 09:37 | PN ---
DATE: 10/15/2017 SUBJECTIVE: The patient has no complaints of any chest pain. The patient is intubated. PHYSICAL EXAMINATION: VITAL SIGNS: of 97.9, pulse of 109, blood pressure is 105/37, respirations 26. GENERAL: The patient is lying in bed, flat, comfortable. HEENT: No oral lesion. Anicteric sclerae. Moist mucosa. NECK: No JVD, adenopathy, or thyromegaly. CARDIOVASCULAR: S1 and S2, regular. No murmurs, rubs, or gallops. LUNGS: Clear to auscultation bilaterally. No wheeze, rales, or rhonchi. ABDOMEN: Bowel sounds are positive. Soft, nontender and nondistended. EXTREMITIES: No cyanosis, clubbing or edema. LABORATORY DATA: White count of 8.9, hemoglobin 8.8. Creatinine is 4.2. ASSESSMENT: 1. Sepsis. 2. Hyponatremia, resolved. 3. Acute kidney injury. 4. Upper gastrointestinal bleed. 5. Dementia. 6. Thrombocytopenia. 7. Hyperkalemia. 8. Transaminitis. 9. Respiratory failure, on ventilator. 10. Urinary tract infection secondary to yeast. PLAN: The patient is currently in the ICU. The patient remains critically ill. The patient was reintubated. The patient's LFTs are improving. He is on IV fluids with bicarbonate. She is receiving meropenem for antibiotics. The patient is on DuoNeb treatment. She is going to continue on doxycycline for her antibiotic for the MRSA that was found in the sputum. Her Alexandre is growing yeast. The patient has overall poor prognosis. She had C. diff that was negative. She is being followed by Ren[facility], Dr. Turk. The patient is currently n.p.o. We will have her labs repeated tomorrow. Her INR is therapeutic at 2.2. Thomas Douglas MD YONNY
[2017-10-16] MEDS ORDERED: Vancomycin 1gm in NS 250ml 1 GM/250 ML BAG IVPB STA (09:49)
[2017-10-16] MEDS ORDERED: Sodium Chloride 0.9% 1,000 ML IV SCH (10:00)
[2017-10-16] MEDS: Meropenem 500 MG in Sodium Chloride 0.9% 50 ML IVPB SCH (10:01)
--- NOTE | 2017-10-16 10:25 | CP.PCM.PN ---
Subjective - Date & Time of Evaluation Date of Evaluation: 10/16/17 Time of Evaluation: 09:40 - Subjective Subjective: Continues to be on the ventilator, no fevers overnight, no diarrhea. Objective - Vital Signs/Intake and Output Vital Signs (last 24 hours): Temp Pulse Resp BP Pulse Ox 98.2 F 101 H 20 138/65 100 10/16/17 04:00 10/16/17 09:14 10/16/17 00:04 10/16/17 09:01 10/16/17 09:01 Intake and Output: 10/16/17 10/16/17 06:59 18:59 Intake Total 1800 Output Total 75 Balance 1725 - Medications Medications: Current Medications Albuterol/Ipratropium (Duoneb 3 Mg/0.5 Mg (3 Ml) Ud) 3 ml IH [id number] [facility] Last Admin: 10/16/17 07:21 Dose: 3 ml Albuterol/Ipratropium (Duoneb 3 Mg/0.5 Mg (3 Ml) Ud) 3 ml IH Q2H PRN PRN Reason: Shortness of Breath Doxercalciferol (Hectorol) 1 mcg IV DAILY [facility] Last Admin: 10/15/17 10:37 Dose: 1 mcg Famotidine (Pepcid) 10 mg IVP DAILY [facility] Last Admin: 10/15/17 09:22 Dose: 10 mg Doxycycline Hyclate 100 mg/ (Sodium Chloride) 100 mls @ 100 mls/hr IVPB Q12 JONNY PRN Reason: Protocol Last Admin: 10/15/17 22:15 Dose: 100 mls/hr Meropenem 500 mg/ Sodium (Chloride) 50 mls @ 100 mls/hr IVPB DAILY JONNY PRN Reason: Protocol Last Admin: 10/15/17 10:33 Dose: 100 mls/hr Sodium Bicarbonate 150 meq/ (Dextrose) 1,150 mls @ 150 mls/hr IV [id number] [facility] Last Admin: 10/16/17 05:54 Dose: 150 mls/hr Insulin Human Regular (Humulin R Med) 0 units SC ACHS JONNY PRN Reason: Protocol Last Admin: 10/16/17 08:06 Dose: 8 units Mupirocin (Bactroban Ointment) 0 gm NS BID [facility] Stop: 10/17/17 10:01 Last Admin: 10/15/17 17:38 Dose: 1 applic - Labs Labs: 10/16/17 06:50 10/16/17 06:50 PT 25.0 SECONDS (9.4-12.5) H 10/16/17 06:50 INR 2.14 (0.93-1.08) H 10/16/17 06:50 APTT 34.1 Seconds (25.1-36.5) 10/16/17 06:50 - Constitutional Appears: Chronically Ill, Other (intubated and sedated) - Head Exam Head Exam: NORMAL INSPECTION - ENT Exam Additional comments: ET tube in place - Respiratory Exam Respiratory Exam: Decreased Breath Sounds - Cardiovascular Exam Cardiovascular Exam: +S1, +S2 - GI/Abdominal Exam GI & Abdominal Exam: Soft. absent: Tenderness Assessment and Plan - Assessment and Plan (Free Text) Plan: Assessment severe sepsis with VDRF and acute encephalopathy and acute on chronic renal failure due to left lower lobe HCAP methicillin-resistant Staph aureus and Kelbsiella in the sputum HTN S/P right hip replacement dementia Plan continue Merrem and Doxycycline day 5 will continue intermittent IV Vancomycin - will get Vanco random level today overall prognosis is poor will continue to monitor clinically
[2017-10-16] MEDS ORDERED: Morphine 2 mg/ml ISec IVP PRN (10:31)
[2017-10-16] MEDS ORDERED: Morphine 4 mg/ml ISec IV PRN (10:40)
[2017-10-16] MEDS: Doxercalciferol 4 mcg/2 ml Inj IV SCH (11:03)
--- NOTE | 2017-10-16 11:40 | CP.CCUPN ---
<Soto Moura - Last Filed: 10/16/17 12:02> CCU Subjective - Physician Review Subjective (Free Text): Patient seen and examined at bedside with same ocular movements she has had during this hospital visit. Patient intubated therefore ROS not obtained. No acute events overnight as per nursing staff. CCU Objective - Vital Signs / Intake & Output Vital Signs (Last 4 hours): Vital Signs Pulse BP Pulse Ox 10/16/17 09:14 101 H 10/16/17 09:13 99 H 10/16/17 09:12 101 H 10/16/17 09:11 101 H 10/16/17 09:10 100 H 10/16/17 09:01 100 H 138/65 100 10/16/17 08:00 99 H 155/74 H 100 Intake and Output (Last 8hrs): Intake & Output 10/15/17 10/16/17 10/16/17 22:59 06:59 14:59 Intake Total 1750 1800 Output Total 50 75 Balance 1700 1725 Weight 62.414 kg Intake: IV 1750 1800 Left Femoral 1750 1800 Oral 0 0 Output: Urine 50 75 Urethral (Alexandre) 50 75 Stool 0 Other: # Bowel Movements 1 - Physical Exam Head: Positive for: Atraumatic, Normocephalic Pupils: Positive for: PERRL Extroacular Muscles: Positive for: EOMI Conjunctiva: Positive for: Normal Mouth: Positive for: Moist Mucous Membranes Respiratory/Chest: Positive for: Clear to Auscultation, Good Air Exchange. Negative for: Respiratory Distress, Accessory Muscle Use Cardiovascular: Positive for: Regular Rate and Rhythm, Normal S1, S2. Negative for: Murmurs Abdomen: Negative for: Tenderness, Distention, Peritoneal Signs Back: Positive for: Normal Inspection Upper Extremity: Positive for: Cyanosis. Negative for: Edema Lower Extremity: Positive for: Cyanosis. Negative for: Edema Skin: Positive for: Dry, Cold. Negative for: Rashes Psychiatric: Negative for: Oriented x 3 (oriented x 2) - Medications Active Medications: Active Medications Generic Name Dose Route Start Last Admin Trade Name Freq PRN Reason Stop Dose Admin Albuterol/Ipratropium 3 ml 10/11/17 02:00 10/16/17 07:21 Duoneb 3 Mg/0.5 Mg (3 Ml) Ud IH 3 ml [id number] JONNY Administration Albuterol/Ipratropium 3 ml 10/10/17 23:20 Duoneb 3 Mg/0.5 Mg (3 Ml) Ud IH Q2H PRN Shortness of Breath Doxercalciferol 1 mcg 10/12/17 10:00 10/16/17 11:03 Hectorol IV 1 mcg DAILY JONNY Administration Famotidine 10 mg 10/12/17 12:00 10/16/17 10:03 Pepcid IVP 10 mg DAILY JONNY Administration Doxycycline Hyclate 100 mg/ 100 mls @ 100 mls/hr 10/11/17 22:00 10/16/17 10: 01 Sodium Chloride IVPB 100 mls/hr Q12 JONNY Administration Protocol Meropenem 500 mg/ Sodium 50 mls @ 100 mls/hr 10/12/17 10:00 10/16/17 10:01 Chloride IVPB 100 mls/hr DAILY OJNNY Administration Protocol Sodium Chloride 1,000 mls @ 150 mls/hr 10/16/17 10:00 10/16/17 10:18 Sodium Chloride 0.9% IV 150 mls/hr .[id number] JONNY Administration Insulin Human Regular 0 units 10/11/17 22:00 10/16/17 08:06 Humulin R Med SC 8 units ACHS JONNY Administration Protocol Morphine Sulfate 2 mg 10/16/17 10:40 Morphine IV Q6H PRN Pain, moderate (4-7) Mupirocin 0 gm 10/12/17 18:00 10/16/17 10:00 Bactroban Ointment NS 10/17/17 10:01 1 applic BID JONNY Administration - Patient Studies Lab Studies: Microbiology Studies 10/11/17 05:00 Blood Culture - Final Blood NO GROWTH AFTER 5 DAYS Gram Stain - Final TEST NOT PERFORMED 10/11/17 04:45 Blood Culture - Final Blood NO GROWTH AFTER 5 DAYS Gram Stain - Final TEST NOT PERFORMED 10/14/17 12:45 Urine Culture - Final Urine,Catheterized Yeast Species Lab Studies 10/16/17 10/16/17 10/16/17 Range/Units 11:36 07:59 07:40 WBC (4.5-11.0) 10^3/ul RBC (3.5-6.1) 10^6/uL Hgb (12.0-16.0) g/dL Hct (36.0-48.0) % MCV (80.0-105.0) fl MCH (25.0-35.0) pg MCHC (31.0-37.0) g/dl RDW (11.5-14.5) % Plt Count (120.0-450.0) 10^3/uL PT (9.4-12.5) SECONDS INR (0.93-1.08) APTT (25.1-36.5) Seconds pCO2 30 L (35-45) mm/Hg pO2 148.0 H (80-100) mm/Hg HCO3 22.9 (21-28) mmol/L ABG pH 7.49 H (7.35-7.45) ABG Total CO2 23.8 (22-28) mmol.L ABG O2 Saturation 99.0 H (95-98) % ABG Base Excess 0.4 (-2.0-3.0) mmol/L ABG Potassium 3.7 (3.6-5.2) mmol/L Sodium 135.0 (132-148) mmol/L Chloride 103.0 (98-107) mmol/L Glucose 427 H* (65-105) mg/dl Lactate 3.4 H (0.7-2.1) mmol/L FiO2 60.0 % PEEP Pressure Support 5 CPAP 5 Potassium (3.6-5.0) mmol/L Carbon Dioxide (21-33) mmol/L Anion Gap (10-20) BUN (7-21) mg/dL Creatinine (0.7-1.2) mg/dl Est GFR ( Amer) Est GFR (Non-Af Amer) POC Glucose (mg/dL) 381 H 384 H (65-110) mg/dL Random Glucose (70-110) mg/dL Calcium (8.4-10.5) mg/dL Total Bilirubin (0.2-1.3) mg/dL AST (14-36) U/L ALT (7-56) U/L Alkaline Phosphatase (38-126) U/L Troponin I ng/mL Total Protein (5.8-8.3) g/dL Albumin (3.0-4.8) g/dL Globulin gm/dL Albumin/Globulin Ratio (1.1-1.8) Arterial Blood Potassium 3.7 (3.6-5.2) mmol/L Crossmatch 10/16/17 10/16/17 10/16/17 Range/Units 06:50 06:50 06:50 WBC 7.2 (4.5-11.0) 10^3/ul RBC 2.96 L (3.5-6.1) 10^6/uL Hgb 8.2 L (12.0-16.0) g/dL Hct 24.1 L (36.0-48.0) % MCV 81.4 D (80.0-105.0) fl MCH 27.7 (25.0-35.0) pg MCHC 34.0 (31.0-37.0) g/dl RDW 14.1 (11.5-14.5) % Plt Count 37 L* (120.0-450.0) 10^3/uL PT 25.0 H (9.4-12.5) SECONDS INR 2.14 H (0.93-1.08) APTT 34.1 (25.1-36.5) Seconds pCO2 (35-45) mm/Hg pO2 (80-100) mm/Hg HCO3 (21-28) mmol/L ABG pH (7.35-7.45) ABG Total CO2 (22-28) mmol.L ABG O2 Saturation (95-98) % ABG Base Excess (-2.0-3.0) mmol/L ABG Potassium (3.6-5.2) mmol/L Sodium 136 (132-148) mmol/L Chloride 97 L (98-107) mmol/L Glucose (65-105) mg/dl Lactate (0.7-2.1) mmol/L FiO2 % PEEP Pressure Support CPAP Potassium 4.0 (3.6-5.0) mmol/L Carbon Dioxide 25 (21-33) mmol/L Anion Gap 18 (10-20) BUN 129 H* (7-21) mg/dL Creatinine 4.3 H (0.7-1.2) mg/dl Est GFR ( Amer) 12 Est GFR (Non-Af Amer) 10 POC Glucose (mg/dL) (65-110) mg/dL Random Glucose 384 H* D (70-110) mg/dL Calcium 6.6 L* (8.4-10.5) mg/dL Total Bilirubin 2.6 H (0.2-1.3) mg/dL AST 228 H D (14-36) U/L ALT 399 H (7-56) U/L Alkaline Phosphatase 102 (38-126) U/L Troponin I ng/mL Total Protein 4.6 L (5.8-8.3) g/dL Albumin 2.0 L (3.0-4.8) g/dL Globulin 2.6 gm/dL Albumin/Globulin Ratio 0.8 L (1.1-1.8) Arterial Blood Potassium (3.6-5.2) mmol/L Crossmatch 10/15/17 10/15/17 10/15/17 Range/Units 22:27 18:30 17:40 WBC (4.5-11.0) 10^3/ul RBC (3.5-6.1) 10^6/uL Hgb (12.0-16.0) g/dL Hct (36.0-48.0) % MCV (80.0-105.0) fl MCH (25.0-35.0) pg MCHC (31.0-37.0) g/dl RDW (11.5-14.5) % Plt Count (120.0-450.0) 10^3/uL PT (9.4-12.5) SECONDS INR (0.93-1.08) APTT (25.1-36.5) Seconds pCO2 (35-45) mm/Hg pO2 (80-100) mm/Hg HCO3 (21-28) mmol/L ABG pH (7.35-7.45) ABG Total CO2 (22-28) mmol.L ABG O2 Saturation (95-98) % ABG Base Excess (-2.0-3.0) mmol/L ABG Potassium (3.6-5.2) mmol/L Sodium (132-148) mmol/L Chloride (98-107) mmol/L Glucose (65-105) mg/dl Lactate (0.7-2.1) mmol/L FiO2 % PEEP Pressure Support CPAP Potassium (3.6-5.0) mmol/L Carbon Dioxide (21-33) mmol/L Anion Gap (10-20) BUN (7-21) mg/dL Creatinine (0.7-1.2) mg/dl Est GFR ( Amer) Est GFR (Non-Af Amer) POC Glucose (mg/dL) 337 H 165 H (65-110) mg/dL Random Glucose (70-110) mg/dL Calcium (8.4-10.5) mg/dL Total Bilirubin (0.2-1.3) mg/dL AST (14-36) U/L ALT (7-56) U/L Alkaline Phosphatase (38-126) U/L Troponin I 0.06 ng/mL Total Protein (5.8-8.3) g/dL Albumin (3.0-4.8) g/dL Globulin gm/dL Albumin/Globulin Ratio (1.1-1.8) Arterial Blood Potassium (3.6-5.2) mmol/L Crossmatch 10/15/17 10/12/17 Range/Units 12:10 15:00 WBC (4.5-11.0) 10^3/ul RBC (3.5-6.1) 10^6/uL Hgb (12.0-16.0) g/dL Hct (36.0-48.0) % MCV (80.0-105.0) fl MCH (25.0-35.0) pg MCHC (31.0-37.0) g/dl RDW (11.5-14.5) % Plt Count (120.0-450.0) 10^3/uL PT (9.4-12.5) SECONDS INR (0.93-1.08) APTT (25.1-36.5) Seconds pCO2 23 L (35-45) mm/Hg pO2 149.0 H (80-100) mm/Hg HCO3 12.7 L (21-28) mmol/L ABG pH 7.35 (7.35-7.45) ABG Total CO2 13.4 L (22-28) mmol.L ABG O2 Saturation 99.2 H (95-98) % ABG Base Excess -10.9 L (-2.0-3.0) mmol/L ABG Potassium 4.5 (3.6-5.2) mmol/L Sodium 134.0 (132-148) mmol/L Chloride 106.0 (98-107) mmol/L Glucose 362 H (65-105) mg/dl Lactate 7.2 H* (0.7-2.1) mmol/L FiO2 60.0 % PEEP 5 Pressure Support 5 CPAP Potassium (3.6-5.0) mmol/L Carbon Dioxide (21-33) mmol/L Anion Gap (10-20) BUN (7-21) mg/dL Creatinine (0.7-1.2) mg/dl Est GFR ( Amer) Est GFR (Non-Af Amer) POC Glucose (mg/dL) (65-110) mg/dL Random Glucose (70-110) mg/dL Calcium (8.4-10.5) mg/dL Total Bilirubin (0.2-1.3) mg/dL AST (14-36) U/L ALT (7-56) U/L Alkaline Phosphatase (38-126) U/L Troponin I ng/mL Total Protein (5.8-8.3) g/dL Albumin (3.0-4.8) g/dL Globulin gm/dL Albumin/Globulin Ratio (1.1-1.8) Arterial Blood Potassium 4.5 (3.6-5.2) mmol/L Crossmatch See Detail Laboratory Results - last 24 hr 10/12/17 10/15/17 10/15/17 15:00 12:10 17:40 WBC RBC Hgb Hct MCV MCH MCHC RDW Plt Count PT INR APTT pCO2 23 L pO2 149.0 H HCO3 12.7 L ABG pH 7.35 ABG Total CO2 13.4 L ABG O2 Saturation 99.2 H ABG Base Excess -10.9 L ABG Potassium 4.5 Sodium 134.0 Chloride 106.0 Glucose 362 H Lactate 7.2 H* FiO2 60.0 PEEP 5 Pressure Support 5 CPAP Potassium Carbon Dioxide Anion Gap BUN Creatinine Est GFR ( Amer) Est GFR (Non-Af Amer) POC Glucose (mg/dL) 165 H Random Glucose Calcium Total Bilirubin AST ALT Alkaline Phosphatase Troponin I Total Protein Albumin Globulin Albumin/Globulin Ratio Arterial Blood Potassium 4.5 Crossmatch See Detail 10/15/17 10/15/17 10/16/17 18:30 22:27 06:50 WBC RBC Hgb Hct MCV MCH MCHC RDW Plt Count PT 25.0 H INR 2.14 H APTT 34.1 pCO2 pO2 HCO3 ABG pH ABG Total CO2 ABG O2 Saturation ABG Base Excess ABG Potassium Sodium Chloride Glucose Lactate FiO2 PEEP Pressure Support CPAP Potassium Carbon Dioxide Anion Gap BUN Creatinine Est GFR ( Amer) Est GFR (Non-Af Amer) POC Glucose (mg/dL) 337 H Random Glucose Calcium Total Bilirubin AST ALT Alkaline Phosphatase Troponin I 0.06 Total Protein Albumin Globulin Albumin/Globulin Ratio Arterial Blood Potassium Crossmatch 10/16/17 10/16/17 10/16/17 06:50 06:50 07:40 WBC 7.2 RBC 2.96 L Hgb 8.2 L Hct 24.1 L MCV 81.4 D MCH 27.7 MCHC 34.0 RDW 14.1 Plt Count 37 L* PT INR APTT pCO2 30 L pO2 148.0 H HCO3 22.9 ABG pH 7.49 H ABG Total CO2 23.8 ABG O2 Saturation 99.0 H ABG Base Excess 0.4 ABG Potassium 3.7 Sodium 136 135.0 Chloride 97 L 103.0 Glucose 427 H* Lactate 3.4 H FiO2 60.0 PEEP Pressure Support 5 CPAP 5 Potassium 4.0 Carbon Dioxide 25 Anion Gap 18 BUN 129 H* Creatinine 4.3 H Est GFR ( Amer) 12 Est GFR (Non-Af Amer) 10 POC Glucose (mg/dL) Random Glucose 384 H* D Calcium 6.6 L* Total Bilirubin 2.6 H AST 228 H D ALT 399 H Alkaline Phosphatase 102 Troponin I Total Protein 4.6 L Albumin 2.0 L Globulin 2.6 Albumin/Globulin Ratio 0.8 L Arterial Blood Potassium 3.7 Crossmatch 10/16/17 10/16/17 07:59 11:36 WBC RBC Hgb Hct MCV MCH MCHC RDW Plt Count PT INR APTT pCO2 pO2 HCO3 ABG pH ABG Total CO2 ABG O2 Saturation ABG Base Excess ABG Potassium Sodium Chloride Glucose Lactate FiO2 PEEP Pressure Support CPAP Potassium Carbon Dioxide Anion Gap BUN Creatinine Est GFR ( Amer) Est GFR (Non-Af Amer) POC Glucose (mg/dL) 384 H 381 H Random Glucose Calcium Total Bilirubin AST ALT Alkaline Phosphatase Troponin I Total Protein Albumin Globulin Albumin/Globulin Ratio Arterial Blood Potassium Crossmatch EKG/Cardiology Studies: Cardiology / EKG Studies 10/15/17 15:00 ELECTROCARDIOGRAM Q6H Comment: Reason For Exam: hypotension Fingerstick Blood Sugar Results: 384 Review of Systems - Review of Systems Systems not reviewed;Unavailable: Intubated Assessment/Plan - Assessment and Plan (Free Text) Assessment: 77 F with past medical history of HTN, dementia, s/p right hip replacement presents from [facility] (in the half-way since Mar due to the hip surgery) for AMS and lethargy s/p cardiac arrest found to be in Hyperglycemic Hyperosmolar Nonketotic Coma (HONK), Hypernatremic, and septic shock secondary to HCAP. Neuro: -Baseline severe dementia CV: -Maintain MAP > 65 -Continue to hold HTN medications Pulm: -Maintain SPO2 > 90 % -Continue with duonebs -Patient on Pressure support will consider PRVC GI: -OG tube in place -NS@150 Renal: -Monitor I&O -Monitor and replete electrolytes as needed -Hypernatremia resolved -Despite worsening renal function, patient is not a candidate for dialysis considering outcome; family decided they do not want dialysis. ID: -ID consulted for recs -Lactate downtrending -Continue doxycycline and merrem -Continue with mupirocin -Trach aspiration positive for MRSA and Klebsiella pneumoniae Endo: -Continue with insulin sliding scale-medium -Maintain euglycemia and normothermia Hematologic -H&H stable Skin -Upper and lower extremities continue to be cyanotic <Helio Mcgovern - Last Filed: 10/16/17 13:17> CCU Objective - Vital Signs / Intake & Output Vital Signs (Last 4 hours): Vital Signs Temp Pulse BP Pulse Ox 10/16/17 12:36 98 H 10/16/17 12:35 98 H 10/16/17 12:34 99 H 10/16/17 12:33 100 H 10/16/17 12:32 97 H 10/16/17 12:28 129/70 86 L 10/16/17 12:25 98 H 10/16/17 12:00 98.2 F 97 H 153/121 H 92 L 10/16/17 11:00 99 H 146/60 100 10/16/17 10:00 140/64 10/16/17 09:15 101 H 10/16/17 09:14 101 H 10/16/17 09:13 99 H 10/16/17 09:12 101 H 10/16/17 09:11 101 H Intake and Output (Last 8hrs): Intake & Output 10/15/17 10/16/17 10/16/17 22:59 06:59 14:59 Intake Total 1750 1800 Output Total 50 75 Balance 1700 1725 Weight 137 lb 9.6 oz Intake: IV 1750 1800 Left Femoral 1750 1800 Oral 0 0 Output: Urine 50 75 Urethral (Alexandre) 50 75 Stool 0 Other: # Bowel Movements 1 - Medications Active Medications: Active Medications Generic Name Dose Route Start Last Admin Trade Name Freq PRN Reason Stop Dose Admin Albuterol/Ipratropium 3 ml 10/11/17 02:00 10/16/17 07:21 Duoneb 3 Mg/0.5 Mg (3 Ml) Ud IH 3 ml [id number] JONNY Administration Albuterol/Ipratropium 3 ml 10/10/17 23:20 Duoneb 3 Mg/0.5 Mg (3 Ml) Ud IH Q2H PRN Shortness of Breath Doxercalciferol 1 mcg 10/12/17 10:00 10/16/17 11:03 Hectorol IV 1 mcg DAILY JONNY Administration Famotidine 10 mg 10/12/17 12:00 10/16/17 10:03 Pepcid IVP 10 mg DAILY JONNY Administration Doxycycline Hyclate 100 mg/ 100 mls @ 100 mls/hr 10/11/17 22:00 10/16/17 10: 01 Sodium Chloride IVPB 100 mls/hr Q12 JONNY Administration Protocol Meropenem 500 mg/ Sodium 50 mls @ 100 mls/hr 10/12/17 10:00 10/16/17 10:01 Chloride IVPB 100 mls/hr DAILY JONNY Administration Protocol Sodium Chloride 1,000 mls @ 150 mls/hr 10/16/17 10:00 10/16/17 10:18 Sodium Chloride 0.9% IV 150 mls/hr .[id number] JONNY Administration Insulin Human Regular 0 units 10/11/17 22:00 10/16/17 12:03 Humulin R Med SC 8 units ACHS JONNY Administration Protocol Morphine Sulfate 2 mg 10/16/17 10:40 Morphine IV Q6H PRN Pain, moderate (4-7) Mupirocin 0 gm 10/12/17 18:00 10/16/17 10:00 Bactroban Ointment NS 10/17/17 10:01 1 applic BID JONNY Administration - Patient Studies Lab Studies: Microbiology Studies 10/11/17 05:00 Blood Culture - Final Blood NO GROWTH AFTER 5 DAYS Gram Stain - Final TEST NOT PERFORMED 10/11/17 04:45 Blood Culture - Final Blood NO GROWTH AFTER 5 DAYS Gram Stain - Final TEST NOT PERFORMED 10/14/17 12:45 Urine Culture - Final Urine,Catheterized Yeast Species Lab Studies 10/16/17 10/16/17 10/16/17 Range/Units 12:20 12:20 11:36 WBC (4.5-11.0) 10^3/ul RBC (3.5-6.1) 10^6/uL Hgb (12.0-16.0) g/dL Hct (36.0-48.0) % MCV (80.0-105.0) fl MCH (25.0-35.0) pg MCHC (31.0-37.0) g/dl RDW (11.5-14.5) % Plt Count (120.0-450.0) 10^3/uL PT (9.4-12.5) SECONDS INR (0.93-1.08) APTT (25.1-36.5) Seconds pCO2 (35-45) mm/Hg pO2 163 H (80-100) mm/Hg HCO3 (21-28) mmol/L ABG pH (7.35-7.45) ABG Total CO2 (22-28) mmol.L ABG O2 Saturation (95-98) % ABG Base Excess (-2.0-3.0) mmol/L ABG Potassium (3.6-5.2) mmol/L VBG pH 7.45 H (7.32-7.43) VBG pCO2 34.0 L (40-60) VBG HCO3 23.6 (21-28) mmol/l VBG Total CO2 24.6 (22-28) mmol.L VBG O2 Sat (Calc) 99.3 H (40-65) % VBG Base Excess 0.1 (0.0-2.0) mmol/L VBG Potassium 3.9 (3.6-5.2) mmol/L Glucose 432 H* (65-105) mg/dl Lactate 4.0 H* (0.7-2.1) mmol/L FiO2 21.0 % Pressure Support CPAP Sodium 134.0 (132-148) mmol/L Potassium (3.6-5.0) mmol/L Chloride 100.0 (98-107) mmol/L Carbon Dioxide (21-33) mmol/L Anion Gap (10-20) BUN (7-21) mg/dL Creatinine (0.7-1.2) mg/dl Est GFR ( Amer) Est GFR (Non-Af Amer) POC Glucose (mg/dL) 381 H (65-110) mg/dL Random Glucose (70-110) mg/dL Calcium (8.4-10.5) mg/dL Total Bilirubin (0.2-1.3) mg/dL AST (14-36) U/L ALT (7-56) U/L Alkaline Phosphatase (38-126) U/L Troponin I ng/mL Total Protein (5.8-8.3) g/dL Albumin (3.0-4.8) g/dL Globulin gm/dL Albumin/Globulin Ratio (1.1-1.8) Arterial Blood Potassium (3.6-5.2) mmol/L Venous Blood Potassium 3.9 (3.6-5.2) mmol/L Random Vancomycin 47.3 H* (20.0-40.0) ug/mL Crossmatch 10/16/17 10/16/17 10/16/17 Range/Units 07:59 07:40 06:50 WBC (4.5-11.0) 10^3/ul RBC (3.5-6.1) 10^6/uL Hgb (12.0-16.0) g/dL Hct (36.0-48.0) % MCV (80.0-105.0) fl MCH (25.0-35.0) pg MCHC (31.0-37.0) g/dl RDW (11.5-14.5) % Plt Count (120.0-450.0) 10^3/uL PT (9.4-12.5) SECONDS INR (0.93-1.08) APTT (25.1-36.5) Seconds pCO2 30 L (35-45) mm/Hg pO2 148.0 H (80-100) mm/Hg HCO3 22.9 (21-28) mmol/L ABG pH 7.49 H (7.35-7.45) ABG Total CO2 23.8 (22-28) mmol.L ABG O2 Saturation 99.0 H (95-98) % ABG Base Excess 0.4 (-2.0-3.0) mmol/L ABG Potassium 3.7 (3.6-5.2) mmol/L VBG pH (7.32-7.43) VBG pCO2 (40-60) VBG HCO3 (21-28) mmol/l VBG Total CO2 (22-28) mmol.L VBG O2 Sat (Calc) (40-65) % VBG Base Excess (0.0-2.0) mmol/L VBG Potassium (3.6-5.2) mmol/L Glucose 427 H* (65-105) mg/dl Lactate 3.4 H (0.7-2.1) mmol/L FiO2 60.0 % Pressure Support 5 CPAP 5 Sodium 135.0 136 (132-148) mmol/L Potassium 4.0 (3.6-5.0) mmol/L Chloride 103.0 97 L (98-107) mmol/L Carbon Dioxide 25 (21-33) mmol/L Anion Gap 18 (10-20) BUN 129 H* (7-21) mg/dL Creatinine 4.3 H (0.7-1.2) mg/dl Est GFR ( Amer) 12 Est GFR (Non-Af Amer) 10 POC Glucose (mg/dL) 384 H (65-110) mg/dL Random Glucose 384 H* D (70-110) mg/dL Calcium 6.6 L* (8.4-10.5) mg/dL Total Bilirubin 2.6 H (0.2-1.3) mg/dL AST 228 H D (14-36) U/L ALT 399 H (7-56) U/L Alkaline Phosphatase 102 (38-126) U/L Troponin I ng/mL Total Protein 4.6 L (5.8-8.3) g/dL Albumin 2.0 L (3.0-4.8) g/dL Globulin 2.6 gm/dL Albumin/Globulin Ratio 0.8 L (1.1-1.8) Arterial Blood Potassium 3.7 (3.6-5.2) mmol/L Venous Blood Potassium (3.6-5.2) mmol/L Random Vancomycin (20.0-40.0) ug/mL Crossmatch 10/16/17 10/16/17 10/15/17 Range/Units 06:50 06:50 22:27 WBC 7.2 (4.5-11.0) 10^3/ul RBC 2.96 L (3.5-6.1) 10^6/uL Hgb 8.2 L (12.0-16.0) g/dL Hct 24.1 L (36.0-48.0) % MCV 81.4 D (80.0-105.0) fl MCH 27.7 (25.0-35.0) pg MCHC 34.0 (31.0-37.0) g/dl RDW 14.1 (11.5-14.5) % Plt Count 37 L* (120.0-450.0) 10^3/uL PT 25.0 H (9.4-12.5) SECONDS INR 2.14 H (0.93-1.08) APTT 34.1 (25.1-36.5) Seconds pCO2 (35-45) mm/Hg pO2 (80-100) mm/Hg HCO3 (21-28) mmol/L ABG pH (7.35-7.45) ABG Total CO2 (22-28) mmol.L ABG O2 Saturation (95-98) % ABG Base Excess (-2.0-3.0) mmol/L ABG Potassium (3.6-5.2) mmol/L VBG pH (7.32-7.43) VBG pCO2 (40-60) VBG HCO3 (21-28) mmol/l VBG Total CO2 (22-28) mmol.L VBG O2 Sat (Calc) (40-65) % VBG Base Excess (0.0-2.0) mmol/L VBG Potassium (3.6-5.2) mmol/L Glucose (65-105) mg/dl Lactate (0.7-2.1) mmol/L FiO2 % Pressure Support CPAP Sodium (132-148) mmol/L Potassium (3.6-5.0) mmol/L Chloride (98-107) mmol/L Carbon Dioxide (21-33) mmol/L Anion Gap (10-20) BUN (7-21) mg/dL Creatinine (0.7-1.2) mg/dl Est GFR ( Amer) Est GFR (Non-Af Amer) POC Glucose (mg/dL) 337 H (65-110) mg/dL Random Glucose (70-110) mg/dL Calcium (8.4-10.5) mg/dL Total Bilirubin (0.2-1.3) mg/dL AST (14-36) U/L ALT (7-56) U/L Alkaline Phosphatase (38-126) U/L Troponin I ng/mL Total Protein (5.8-8.3) g/dL Albumin (3.0-4.8) g/dL Globulin gm/dL Albumin/Globulin Ratio (1.1-1.8) Arterial Blood Potassium (3.6-5.2) mmol/L Venous Blood Potassium (3.6-5.2) mmol/L Random Vancomycin (20.0-40.0) ug/mL Crossmatch 10/15/17 10/15/17 10/12/17 Range/Units 18:30 17:40 15:00 WBC (4.5-11.0) 10^3/ul RBC (3.5-6.1) 10^6/uL Hgb (12.0-16.0) g/dL Hct (36.0-48.0) % MCV (80.0-105.0) fl MCH (25.0-35.0) pg MCHC (31.0-37.0) g/dl RDW (11.5-14.5) % Plt Count (120.0-450.0) 10^3/uL PT (9.4-12.5) SECONDS INR (0.93-1.08) APTT (25.1-36.5) Seconds pCO2 (35-45) mm/Hg pO2 (80-100) mm/Hg HCO3 (21-28) mmol/L ABG pH (7.35-7.45) ABG Total CO2 (22-28) mmol.L ABG O2 Saturation (95-98) % ABG Base Excess (-2.0-3.0) mmol/L ABG Potassium (3.6-5.2) mmol/L VBG pH (7.32-7.43) VBG pCO2 (40-60) VBG HCO3 (21-28) mmol/l VBG Total CO2 (22-28) mmol.L VBG O2 Sat (Calc) (40-65) % VBG Base Excess (0.0-2.0) mmol/L VBG Potassium (3.6-5.2) mmol/L Glucose (65-105) mg/dl Lactate (0.7-2.1) mmol/L FiO2 % Pressure Support CPAP Sodium (132-148) mmol/L Potassium (3.6-5.0) mmol/L Chloride (98-107) mmol/L Carbon Dioxide (21-33) mmol/L Anion Gap (10-20) BUN (7-21) mg/dL Creatinine (0.7-1.2) mg/dl Est GFR ( Amer) Est GFR (Non-Af Amer) POC Glucose (mg/dL) 165 H (65-110) mg/dL Random Glucose (70-110) mg/dL Calcium (8.4-10.5) mg/dL Total Bilirubin (0.2-1.3) mg/dL AST (14-36) U/L ALT (7-56) U/L Alkaline Phosphatase (38-126) U/L Troponin I 0.06 ng/mL Total Protein (5.8-8.3) g/dL Albumin (3.0-4.8) g/dL Globulin gm/dL Albumin/Globulin Ratio (1.1-1.8) Arterial Blood Potassium (3.6-5.2) mmol/L Venous Blood Potassium (3.6-5.2) mmol/L Random Vancomycin (20.0-40.0) ug/mL Crossmatch See Detail Laboratory Results - last 24 hr 10/12/17 10/15/17 10/15/17 15:00 17:40 18:30 WBC RBC Hgb Hct MCV MCH MCHC RDW Plt Count PT INR APTT pCO2 pO2 HCO3 ABG pH ABG Total CO2 ABG O2 Saturation ABG Base Excess ABG Potassium VBG pH VBG pCO2 VBG HCO3 VBG Total CO2 VBG O2 Sat (Calc) VBG Base Excess VBG Potassium Glucose Lactate FiO2 Pressure Support CPAP Sodium Potassium Chloride Carbon Dioxide Anion Gap BUN Creatinine Est GFR ( Amer) Est GFR (Non-Af Amer) POC Glucose (mg/dL) 165 H Random Glucose Calcium Total Bilirubin AST ALT Alkaline Phosphatase Troponin I 0.06 Total Protein Albumin Globulin Albumin/Globulin Ratio Arterial Blood Potassium Venous Blood Potassium Random Vancomycin Crossmatch See Detail 10/15/17 10/16/17 10/16/17 22:27 06:50 06:50 WBC 7.2 RBC 2.96 L Hgb 8.2 L Hct 24.1 L MCV 81.4 D MCH 27.7 MCHC 34.0 RDW 14.1 Plt Count 37 L* PT 25.0 H INR 2.14 H APTT 34.1 pCO2 pO2 HCO3 ABG pH ABG Total CO2 ABG O2 Saturation ABG Base Excess ABG Potassium VBG pH VBG pCO2 VBG HCO3 VBG Total CO2 VBG O2 Sat (Calc) VBG Base Excess VBG Potassium Glucose Lactate FiO2 Pressure Support CPAP Sodium Potassium Chloride Carbon Dioxide Anion Gap BUN Creatinine Est GFR ( Amer) Est GFR (Non-Af Amer) POC Glucose (mg/dL) 337 H Random Glucose Calcium Total Bilirubin AST ALT Alkaline Phosphatase Troponin I Total Protein Albumin Globulin Albumin/Globulin Ratio Arterial Blood Potassium Venous Blood Potassium Random Vancomycin Crossmatch 10/16/17 10/16/17 10/16/17 06:50 07:40 07:59 WBC RBC Hgb Hct MCV MCH MCHC RDW Plt Count PT INR APTT pCO2 30 L pO2 148.0 H HCO3 22.9 ABG pH 7.49 H ABG Total CO2 23.8 ABG O2 Saturation 99.0 H ABG Base Excess 0.4 ABG Potassium 3.7 VBG pH VBG pCO2 VBG HCO3 VBG Total CO2 VBG O2 Sat (Calc) VBG Base Excess VBG Potassium Glucose 427 H* Lactate 3.4 H FiO2 60.0 Pressure Support 5 CPAP 5 Sodium 136 135.0 Potassium 4.0 Chloride 97 L 103.0 Carbon Dioxide 25 Anion Gap 18 BUN 129 H* Creatinine 4.3 H Est GFR ( Amer) 12 Est GFR (Non-Af Amer) 10 POC Glucose (mg/dL) 384 H Random Glucose 384 H* D Calcium 6.6 L* Total Bilirubin 2.6 H AST 228 H D ALT 399 H Alkaline Phosphatase 102 Troponin I Total Protein 4.6 L Albumin 2.0 L Globulin 2.6 Albumin/Globulin Ratio 0.8 L Arterial Blood Potassium 3.7 Venous Blood Potassium Random Vancomycin Crossmatch 10/16/17 10/16/17 10/16/17 11:36 12:20 12:20 WBC RBC Hgb Hct MCV MCH MCHC RDW Plt Count PT INR APTT pCO2 pO2 163 H HCO3 ABG pH ABG Total CO2 ABG O2 Saturation ABG Base Excess ABG Potassium VBG pH 7.45 H VBG pCO2 34.0 L VBG HCO3 23.6 VBG Total CO2 24.6 VBG O2 Sat (Calc) 99.3 H VBG Base Excess 0.1 VBG Potassium 3.9 Glucose 432 H* Lactate 4.0 H* FiO2 21.0 Pressure Support CPAP Sodium 134.0 Potassium Chloride 100.0 Carbon Dioxide Anion Gap BUN Creatinine Est GFR ( Amer) Est GFR (Non-Af Amer) POC Glucose (mg/dL) 381 H Random Glucose Calcium Total Bilirubin AST ALT Alkaline Phosphatase Troponin I Total Protein Albumin Globulin Albumin/Globulin Ratio Arterial Blood Potassium Venous Blood Potassium 3.9 Random Vancomycin 47.3 H* Crossmatch EKG/Cardiology Studies: Cardiology / EKG Studies 10/15/17 15:00 ELECTROCARDIOGRAM Q6H Comment: Reason For Exam: hypotension Attending/Attestation - Attestation I have personally seen and examined this patient.: Yes I have fully participated in the care of the patient.: Yes I have reviewed all pertinent clinical information: Yes Notes (Text): 10/16/17 13:10 The patient was seen and examined at the bedside. Patient care was discussed with resident and ICU team in MDR rounds. Medical records, lab studies, and imaging were reviewed and management issues were discussed and formulated. Last 24H events reviewed. Agree with above treatment plans as outlined in 's note with addition of the following: Acute Respiratory Failure \ Hypoxemia \ OSWALDO on CKD \ Sepsis \ PNA \ DM \ Thrombocytopenia \ DIC \ Elevated LFT -hemodynamic monitoring to maintain MAP>65 -mechanical ventilation to maintain Spo2>90 Pao2>60; current mode PRVC -monitor for TV 6ml\kg IBW and plateau pressure <30 -ABG reviewed and CXR reviewed -continue nebs and pulmonary toileting -Continue broad spectrum Abx as per ID team and f\u cultures -f\u Bun\Cr and U\o; renal team following closely and evaluating for HD; hold off further bicarb drip -f\u INR and CBC, monitor for bleed; likely DIC ; consider heme\onc eval -tube feeds diet and aspiration precautions -f\u serial LFT, likely shock liver, improving -ISS and BGM monitoring; increase to resistant ISS and add lantus; BGM to Q4hrs -DVT \ PUD prophylaxis -palliation team following and awaiting family decision regarding further care. Terminal extubation planned for monday as per family wishes. Pt is DNR code status as per family wishes. At this time family does not want escalation of care such as renal replacement therapy CCM f\u 35min
[2017-10-16 12:33] LABS: VENOUS BLOOD GAS BASE EXCESS 0.1 mmol/L (0.0-2.0); VENOUS BLOOD GAS PO2 163 mm/Hg (30-55); VENOUS BLOOD PH 7.45 (7.32-7.43)
[2017-10-16] MEDS ORDERED: Insulin Detemir 100 units/ml Vial (Levemir) SC ONE (13:19)
[2017-10-16] MEDS ORDERED: Insulin Detemir 100 units/ml Vial (Levemir) SC STA (13:19)
[2017-10-16] MEDS ORDERED: Insulin Reg-HIGH-Coverage SC SCH (13:30)
--- NOTE | 2017-10-16 15:45 | PN ---
DATE: 10/16/2017 SUBJECTIVE: The patient is a 77-year-old, remain intubated. Yesterday's event noted. The patient went into respiratory distress, was reintubated. 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 They made her DNR and are thinking about terminal extubation on Monday. OBJECTIVE: GENERAL: On examination, she is not in any acute distress, on vent. Open eyes spontaneously. Does not follow commands. VITAL SIGNS: She is afebrile, pulse 101, respiration 18, blood pressure 138/65. LUNGS: Bilateral fair airflow. No rhonchi or crackles. HEART: S1, S2 audible. ABDOMEN: Soft, nontender, no rebound, no guarding. NEUROLOGICAL: She is not communicative. LABORATORY EXAM: WBC 7.2, hemoglobin 8.2, hematocrit 24, platelets of 37. PT 25, INR 2.14. Chemistry: Sodium 136, potassium 4, chloride 97, CO2 25, BUN 129, creatinine 4.3, blood sugar of 384. ASSESSMENT: 1. Sepsis secondary to pulmonary infiltrate. 2. Respiratory failure. 3. Status post gastrointestinal bleed. 4. Status post blood transfusion. 5. Acute renal failure. 6. Abnormal LFT secondary to hypoperfusion. 7. Methicillin-resistant Staphylococcus aureus and Klebsiella, on tracheal aspirate. PLAN: The patient is currently on vent support. She is on IV fluids. She is on doxycycline. Getting nebulizer treatment. She is on meropenem, off of pressors, terminal extubation on Monday. Davon Marie MD
--- NOTE | 2017-10-16 16:03 | CP.PCM.PN ---
<Meg Ham - Last Filed: 10/16/17 16:03> Subjective - Date & Time of Evaluation Date of Evaluation: 10/16/17 Time of Evaluation: 09:45 - Subjective Subjective: Seen and examined at the bedside earlier this morning, chart reviewed. Patient reported to have large bowel movement that was liquid green. Patient is not verbally responsive. May open eys to touch but does not follow commands. No acute overnight events as per nursing staff. Objective - Vital Signs/Intake and Output Vital Signs (last 24 hours): Temp Pulse Resp BP Pulse Ox 98.2 F 97 H 20 111/77 91 L 10/16/17 12:00 10/16/17 15:00 10/16/17 00:04 10/16/17 15:00 10/16/17 15:00 Intake and Output: 10/16/17 10/16/17 06:59 18:59 Intake Total 1800 Output Total 75 Balance 1725 - Medications Medications: Current Medications Albuterol/Ipratropium (Duoneb 3 Mg/0.5 Mg (3 Ml) Ud) 3 ml IH [id number] JONNY Last Admin: 10/16/17 13:37 Dose: 3 ml Albuterol/Ipratropium (Duoneb 3 Mg/0.5 Mg (3 Ml) Ud) 3 ml IH Q2H PRN PRN Reason: Shortness of Breath Doxercalciferol (Hectorol) 1 mcg IV DAILY JONNY Last Admin: 10/16/17 11:03 Dose: 1 mcg Famotidine (Pepcid) 10 mg IVP DAILY JONNY Last Admin: 10/16/17 10:03 Dose: 10 mg Doxycycline Hyclate 100 mg/ (Sodium Chloride) 100 mls @ 100 mls/hr IVPB Q12 JONNY PRN Reason: Protocol Last Admin: 10/16/17 10:01 Dose: 100 mls/hr Meropenem 500 mg/ Sodium (Chloride) 50 mls @ 100 mls/hr IVPB DAILY JONNY PRN Reason: Protocol Last Admin: 10/16/17 10:01 Dose: 100 mls/hr Insulin Human Regular (Humulin R High) 0 units SC Q4H JONNY PRN Reason: Protocol Morphine Sulfate (Morphine) 2 mg IV Q6H PRN PRN Reason: Pain, moderate (4-7) Mupirocin (Bactroban Ointment) 0 gm NS BID JONNY Stop: 10/17/17 10:01 Last Admin: 10/16/17 10:00 Dose: 1 applic - Labs Labs: 10/16/17 06:50 10/16/17 06:50 PT 25.0 SECONDS (9.4-12.5) H 10/16/17 06:50 INR 2.14 (0.93-1.08) H 10/16/17 06:50 APTT 34.1 Seconds (25.1-36.5) 10/16/17 06:50 - Constitutional Appears: No Acute Distress - Head Exam Head Exam: NORMOCEPHALIC - Eye Exam Eye Exam: Scleral icterus. absent: Normal appearance - ENT Exam ENT Exam: Mucous Membranes Moist - Neck Exam Neck Exam: Normal Inspection - Respiratory Exam Respiratory Exam: NORMAL BREATHING PATTERN. absent: Respiratory Distress - Cardiovascular Exam Cardiovascular Exam: +S1, +S2 - GI/Abdominal Exam GI & Abdominal Exam: Distended, Soft, Hypoactive Bowel Sounds. 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 Plan: Monitor H&H and for overt GI bleed Continue GI prophylaxis Continue DVT prophylaxis On IV antibiotics NPO on IVF Spoke to patient's daughter at bedside, family may plan for terminal intubation. No planned GI intervention. Continue current care. Seen and discussed with Dr. Rust. <Michael Rust V - Last Filed: 10/16/17 23:54> Objective - Vital Signs/Intake and Output Vital Signs (last 24 hours): Temp Pulse Resp BP Pulse Ox 98 F 99 H 20 136/62 96 10/16/17 16:00 10/16/17 18:00 10/16/17 00:04 10/16/17 18:00 10/16/17 18:00 Intake and Output: 10/16/17 10/17/17 18:59 06:59 Intake Total 1250 Output Total 40 Balance 1210 - Medications Medications: Current Medications Albuterol/Ipratropium (Duoneb 3 Mg/0.5 Mg (3 Ml) Ud) 3 ml IH [id number] [facility] Last Admin: 10/16/17 19:52 Dose: 3 ml Albuterol/Ipratropium (Duoneb 3 Mg/0.5 Mg (3 Ml) Ud) 3 ml IH Q2H PRN PRN Reason: Shortness of Breath Doxercalciferol (Hectorol) 1 mcg IV DAILY [facility] Last Admin: 10/16/17 11:03 Dose: 1 mcg Famotidine (Pepcid) 10 mg IVP DAILY [facility] Last Admin: 10/16/17 10:03 Dose: 10 mg Doxycycline Hyclate 100 mg/ (Sodium Chloride) 100 mls @ 100 mls/hr IVPB Q12 [facility] PRN Reason: Protocol Last Admin: 10/16/17 22:14 Dose: 100 mls/hr Meropenem 500 mg/ Sodium (Chloride) 50 mls @ 100 mls/hr IVPB DAILY [facility] PRN Reason: Protocol Last Admin: 10/16/17 10:01 Dose: 100 mls/hr Insulin Human Regular (Humulin R High) 0 units SC Q4H JONNY PRN Reason: Protocol Last Admin: 10/16/17 23:43 Dose: Not Given Morphine Sulfate (Morphine) 2 mg IV Q6H PRN PRN Reason: Pain, moderate (4-7) Mupirocin (Bactroban Ointment) 0 gm NS BID [facility] Stop: 10/17/17 10:01 Last Admin: 10/16/17 17:15 Dose: 1 applic - Labs Labs: 10/16/17 06:50 10/16/17 06:50 PT 25.0 SECONDS (9.4-12.5) H 10/16/17 06:50 INR 2.14 (0.93-1.08) H 10/16/17 06:50 APTT 34.1 Seconds (25.1-36.5) 10/16/17 06:50 Attending/Attestation - Attestation I have personally seen and examined this patient.: Yes I have fully participated in the care of the patient.: Yes I have reviewed all pertinent clinical information, including history, physical exam and plan: Yes Notes (Text): p 10/16/17 23:53
[2017-10-16] MEDS: Insulin Reg-HIGH-Coverage SC SCH ×3 (16:51→23:43)
--- NOTE | 2017-10-16 18:38 | PN ---
DATE: 10/16/2017 SUBJECTIVE: The patient is seen lying in bed in the ICU. 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 She appears very icteric. She is currently sedated. She is not really following any commands. OBJECTIVE: GENERAL: Thinly built elderly lady lying in bed in the ICU on mechanical ventilation. VITAL SIGNS: Blood pressure 129/70, heart rate 98, respiratory rate 90, temperature 98.2. HEENT: Normocephalic, positive pallor, positive icterus, positive chemosis, pupils sluggish. NECK: Supple, no JVD. LUNGS: Bilateral rhonchi, bilateral equal expansion, no rales appreciated anteriorly. CARDIAC: S1, S2. Regular rate and rhythm. No murmur,, no rub. ABDOMEN: Distended, soft, nontender. Bowel sounds sluggish. EXTREMITIES: 3+ pitting edema of the lower extremities. INTAKE AND OUTPUT: 4950/275. LABORATORY DATA: WBC 7, hemoglobin 8.2, hematocrit 24, platelets 37. INR 2.1. APTT 34. Sodium 136, potassium 4, chloride 97, CO2 is 25, BUN 129, creatinine 4.3. Glucose 384, calcium 6.6, AST 228, ALT 399, albumin 2, corrected calcium is 8. Vancomycin level 47. Urine culture, yeast. Urine culture from tracheal aspirate, MRSA and Klebsiella. CURRENT MEDICATIONS: Doxycycline 100 every 12 hours, DuoNeb, Hectorol 1 mcg IV daily, meropenem 500 daily, morphine, Pepcid, normal saline at 150. ASSESSMENT AND PLAN: 1. Acute kidney injury superimposed on chronic kidney disease stage 3. 2. Severe sepsis, methicillin resistant Staphylococcus aureus and Klebsiella pneumoniae. 3. Shock liver. 4. Severe hypocalcemia in the setting of secondary hyperparathyroidism. 5. Pancytopenia. 6. Coagulopathy. 7. Disseminated intravascular coagulation. 8. Altered mental status/encephalopathy. 9. Vancomycin toxicity. PLAN: 1. Hold vancomycin, dose as per levels. 2. Discontinue IV fluids. 3. Continue antibiotics as per ID recommendations. 4. Dose for creatinine clearance less than 10. 5. The patient is critically ill with overall prognosis grim, no plans for renal replacement therapy. 6. Case discussed with ICU residents at bedside at length. 7. Case discussed with Dr. Ty. More than 35 minutes spent in the care of this critically ill patient. Brittanie Turk MD [facility] # [id number]
[2017-10-17] MEDS: Albuterol-Ipratrop 3 mg / 0.5 (3 ml) UD IH SCH ×4 (01:58→19:36)
[2017-10-17] MEDS: Insulin Reg-HIGH-Coverage SC SCH ×5 (04:30→19:45)
[2017-10-17] MEDS: Vitamins A & D Oint UD Foilpak TOP SCH ×3 (06:31→23:00)
[2017-10-17 08:16] LABS: BASO # 0.03 K/mm3 (0.0-2.0); BASO % 0.2 % (0.0-3.0); EOS % 0.3 % (1.5-5.0); HEMOGLOBIN 8.6 g/dL (12.0-16.0); MEAN CORPUSCULAR HEMOGLOBIN 27.7 pg (25.0-35.0); MEAN CORPUSCULAR HGB CONC 34.7 g/dl (31.0-37.0); MONO # 1.2 (0.1-0.6); MONO % 9.3 % (1.0-6.0); PLATELET COUNT 63 10^3/uL (120.0-450.0); RED CELL DISTRIBUTION WIDTH 14.1 % (11.5-14.5); WHITE BLOOD COUNT 12.8 10^3/ul (4.5-11.0)
[2017-10-17 08:43] LABS: ALB/GLOB RATIO 0.7 (1.1-1.8); ALBUMIN 2.1 g/dL (3.0-4.8); CALCIUM 7.9 mg/dL (8.4-10.5)
[2017-10-17 09:50] LABS: ARTERIAL BLOOD GAS HCO3 21.8 mmol/L (21-28); ARTERIAL BLOOD GAS O2 SAT 98.8 % (95-98); ARTERIAL BLOOD GAS PCO2 28 mm/Hg (35-45); ARTERIAL BLOOD GAS TCO2 22.7 mmol.L (22-28)
--- NOTE | 2017-10-17 10:08 | CP.PCM.PN ---
Subjective - Date & Time of Evaluation Date of Evaluation: 10/17/17 Time of Evaluation: 09:30 - Subjective Subjective: Continues to be on the ventilator, no fevers, no diarrhea, opens eyes to tactile stimuli. Objective - Vital Signs/Intake and Output Vital Signs (last 24 hours): Temp Pulse Resp BP Pulse Ox 98.4 F 107 H 20 113/45 L 100 10/17/17 08:00 10/17/17 08:01 10/16/17 00:04 10/17/17 08:01 10/17/17 08:01 Intake and Output: 10/17/17 10/17/17 06:59 18:59 Intake Total 100 Output Total 40 Balance 60 - Medications Medications: Current Medications Albuterol/Ipratropium (Duoneb 3 Mg/0.5 Mg (3 Ml) Ud) 3 ml IH [id number] [facility] Last Admin: 10/17/17 07:40 Dose: 3 ml Albuterol/Ipratropium (Duoneb 3 Mg/0.5 Mg (3 Ml) Ud) 3 ml IH Q2H PRN PRN Reason: Shortness of Breath Doxercalciferol (Hectorol) 1 mcg IV DAILY [facility] Last Admin: 10/16/17 11:03 Dose: 1 mcg Famotidine (Pepcid) 10 mg IVP DAILY [facility] Last Admin: 10/16/17 10:03 Dose: 10 mg Doxycycline Hyclate 100 mg/ (Sodium Chloride) 100 mls @ 100 mls/hr IVPB Q12 JONNY PRN Reason: Protocol Last Admin: 10/16/17 22:14 Dose: 100 mls/hr Meropenem 500 mg/ Sodium (Chloride) 50 mls @ 100 mls/hr IVPB DAILY JONNY PRN Reason: Protocol Last Admin: 10/16/17 10:01 Dose: 100 mls/hr Insulin Human Regular (Humulin R High) 0 units SC Q4H JONNY PRN Reason: Protocol Last Admin: 10/17/17 08:11 Dose: Not Given Morphine Sulfate (Morphine) 2 mg IV Q6H PRN PRN Reason: Pain, moderate (4-7) Mupirocin (Bactroban Ointment) 0 gm NS BID [facility] Stop: 10/17/17 10:01 Last Admin: 10/16/17 17:15 Dose: 1 applic Vitamin A (Vitamin A & D Oint Ud Foilpak) 1 ea TOP QSHIFT JONNY Last Admin: 10/17/17 06:31 Dose: 1 ea - Labs Labs: 10/17/17 08:10 10/16/17 06:50 PT 25.0 SECONDS (9.4-12.5) H 10/16/17 06:50 INR 2.14 (0.93-1.08) H 10/16/17 06:50 APTT 34.1 Seconds (25.1-36.5) 10/16/17 06:50 - Constitutional Appears: Chronically Ill, Other (intubated, sedated) - ENT Exam Additional comments: Et tube in place - Respiratory Exam Respiratory Exam: Decreased Breath Sounds - Cardiovascular Exam Cardiovascular Exam: +S1, +S2 - GI/Abdominal Exam GI & Abdominal Exam: Soft. absent: Tenderness Assessment and Plan - Assessment and Plan (Free Text) Plan: Assessment severe sepsis with VDRF and acute encephalopathy and acute on chronic renal failure due to left lower lobe HCAP methicillin-resistant Staph aureus and Kelbsiella in the sputum HTN S/P right hip replacement dementia Plan continue Merrem and Doxycycline day 6 will continue intermittent IV Vancomycin - will get Vanco random level today again - Vanco random level yesterday was taken after an hour of administration of the Vancomycin overall prognosis is poor will continue to follow clinically
[2017-10-17] MEDS: Doxercalciferol 4 mcg/2 ml Inj IV SCH (10:22)
[2017-10-17] MEDS: Meropenem 500 MG in Sodium Chloride 0.9% 50 ML IVPB SCH (10:23)
--- NOTE | 2017-10-17 11:13 | CP.CCUPN ---
<Soto Moura - Last Filed: 10/17/17 11:17> CCU Subjective - Physician Review Subjective (Free Text): Patient seen and examined at bedside intubated. ROS not obtained due to intubation and patient's advanced dementia. CCU Objective - Vital Signs / Intake & Output Vital Signs (Last 4 hours): Vital Signs Temp Pulse BP Pulse Ox 10/17/17 08:01 107 H 113/45 L 100 10/17/17 08:00 98.4 F 106 H 100 Intake and Output (Last 8hrs): Intake & Output 10/16/17 10/17/17 10/17/17 22:59 06:59 14:59 Intake Total 1250 100 Output Total 40 40 Balance 1210 60 Weight 63.639 kg Intake: IV 1250 100 Left Femoral 1250 100 Output: Urine 40 40 Urethral (Alexandre) 40 40 Other: # Bowel Movements 0 - Physical Exam Head: Positive for: Atraumatic, Normocephalic Pupils: Positive for: PERRL Conjunctiva: Positive for: Normal Mouth: Positive for: Dry Neck: Positive for: Normal Range of Motion Respiratory/Chest: Positive for: Clear to Auscultation, Good Air Exchange. Negative for: Respiratory Distress, Accessory Muscle Use Cardiovascular: Positive for: Regular Rate and Rhythm, Normal S1, S2. Negative for: Murmurs Abdomen: Negative for: Tenderness, Distention, Peritoneal Signs Upper Extremity: Positive for: Cyanosis. Negative for: Edema Lower Extremity: Positive for: Cyanosis. Negative for: Edema Neurological: Positive for: Other (advanced dementia, intubated, ams) Skin: Positive for: Dry, Cold. Negative for: Rashes Psychiatric: Positive for: Other (AMS). Negative for: Oriented x 3 (oriented x 2) - Medications Active Medications: Active Medications Generic Name Dose Route Start Last Admin Trade Name Freq PRN Reason Stop Dose Admin Albuterol/Ipratropium 3 ml 10/11/17 02:00 10/17/17 07:40 Duoneb 3 Mg/0.5 Mg (3 Ml) Ud IH 3 ml [id number] JONNY Administration Albuterol/Ipratropium 3 ml 10/10/17 23:20 Duoneb 3 Mg/0.5 Mg (3 Ml) Ud IH Q2H PRN Shortness of Breath Doxercalciferol 1 mcg 10/12/17 10:00 10/17/17 10:22 Hectorol IV 1 mcg DAILY JONNY Administration Famotidine 10 mg 10/12/17 12:00 10/17/17 10:23 Pepcid IVP 10 mg DAILY JONNY Administration Doxycycline Hyclate 100 mg/ 100 mls @ 100 mls/hr 10/11/17 22:00 10/17/17 10: 24 Sodium Chloride IVPB 100 mls/hr Q12 JONNY Administration Protocol Meropenem 500 mg/ Sodium 50 mls @ 100 mls/hr 10/12/17 10:00 10/17/17 10:23 Chloride IVPB 100 mls/hr DAILY JONNY Administration Protocol Insulin Human Regular 0 units 10/16/17 15:30 10/17/17 08:11 Humulin R High SC Not Given Q4H JONNY Protocol Morphine Sulfate 2 mg 10/16/17 10:40 Morphine IV Q6H PRN Pain, moderate (4-7) Vitamin A 1 ea 10/17/17 07:00 10/17/17 06:31 Vitamin A & D Oint Foilpak TOP 1 ea QSHIFT JONNY Administration - Patient Studies Lab Studies: Lab Studies 10/17/17 10/17/17 10/17/17 Range/Units 09:20 08:10 08:10 WBC 12.8 H D (4.5-11.0) 10^3/ul RBC 3.10 L (3.5-6.1) 10^6/uL Hgb 8.6 L (12.0-16.0) g/dL Hct 24.8 L (36.0-48.0) % MCV 80.0 (80.0-105.0) fl MCH 27.7 (25.0-35.0) pg MCHC 34.7 (31.0-37.0) g/dl RDW 14.1 (11.5-14.5) % Plt Count 63 L (120.0-450.0) 10^3/uL Whitfield % (Auto) 9.3 H (1.0-6.0) % Eos % (Auto) 0.3 L (1.5-5.0) % Baso % (Auto) 0.2 (0.0-3.0) % Whitfield # (Auto) 1.2 H (0.1-0.6) Eos # (Auto) 0.0 (0.0-0.7) Baso # (Auto) 0.03 (0.0-2.0) K/mm3 pCO2 28 L (35-45) mm/Hg pO2 81.0 (30-55) mm/Hg HCO3 21.8 (21-28) mmol/L ABG pH 7.50 H (7.35-7.45) ABG Total CO2 22.7 (22-28) mmol.L ABG O2 Saturation 98.8 H (95-98) % ABG Base Excess -1.0 (-2.0-3.0) mmol/L ABG Potassium 3.5 L (3.6-5.2) mmol/L VBG pH (7.32-7.43) VBG pCO2 (40-60) VBG HCO3 (21-28) mmol/l VBG Total CO2 (22-28) mmol.L VBG O2 Sat (Calc) (40-65) % VBG Base Excess (0.0-2.0) mmol/L VBG Potassium (3.6-5.2) mmol/L Sodium 137.0 136 (132-148) mmol/L Chloride 105.0 99 (98-107) mmol/L Glucose 122 H (65-105) mg/dl Lactate 3.0 H (0.7-2.1) mmol/L FiO2 40.0 % Potassium 3.7 (3.6-5.0) mmol/L Carbon Dioxide 24 (21-33) mmol/L Anion Gap 17 (10-20) BUN 137 H* (7-21) mg/dL Creatinine 5.1 H (0.7-1.2) mg/dl Est GFR ( Amer) 10 Est GFR (Non-Af Amer) 8 POC Glucose (mg/dL) (65-110) mg/dL Random Glucose 114 H (70-110) mg/dL Calcium 7.9 L (8.4-10.5) mg/dL Phosphorus 7.7 H (2.5-4.5) mg/dL Magnesium 1.6 L (1.7-2.2) mg/dL Total Bilirubin 4.1 H (0.2-1.3) mg/dL AST 258 H (14-36) U/L ALT 353 H (7-56) U/L Alkaline Phosphatase 123 (38-126) U/L Total Protein 5.0 L (5.8-8.3) g/dL Albumin 2.1 L (3.0-4.8) g/dL Globulin 2.9 gm/dL Albumin/Globulin Ratio 0.7 L (1.1-1.8) Arterial Blood Potassium 3.5 L (3.6-5.2) mmol/L Venous Blood Potassium (3.6-5.2) mmol/L Random Vancomycin (20.0-40.0) ug/mL Influenza Type A Ab (<1:8) titer Influenza Type B Ab (<1:8) titer 10/17/17 10/16/17 10/16/17 Range/Units 04:38 23:33 21:11 WBC (4.5-11.0) 10^3/ul RBC (3.5-6.1) 10^6/uL Hgb (12.0-16.0) g/dL Hct (36.0-48.0) % MCV (80.0-105.0) fl MCH (25.0-35.0) pg MCHC (31.0-37.0) g/dl RDW (11.5-14.5) % Plt Count (120.0-450.0) 10^3/uL Whitfield % (Auto) (1.0-6.0) % Eos % (Auto) (1.5-5.0) % Baso % (Auto) (0.0-3.0) % Whitfield # (Auto) (0.1-0.6) Eos # (Auto) (0.0-0.7) Baso # (Auto) (0.0-2.0) K/mm3 pCO2 (35-45) mm/Hg pO2 (30-55) mm/Hg HCO3 (21-28) mmol/L ABG pH (7.35-7.45) ABG Total CO2 (22-28) mmol.L ABG O2 Saturation (95-98) % ABG Base Excess (-2.0-3.0) mmol/L ABG Potassium (3.6-5.2) mmol/L VBG pH (7.32-7.43) VBG pCO2 (40-60) VBG HCO3 (21-28) mmol/l VBG Total CO2 (22-28) mmol.L VBG O2 Sat (Calc) (40-65) % VBG Base Excess (0.0-2.0) mmol/L VBG Potassium (3.6-5.2) mmol/L Sodium (132-148) mmol/L Chloride (98-107) mmol/L Glucose (65-105) mg/dl Lactate (0.7-2.1) mmol/L FiO2 % Potassium (3.6-5.0) mmol/L Carbon Dioxide (21-33) mmol/L Anion Gap (10-20) BUN (7-21) mg/dL Creatinine (0.7-1.2) mg/dl Est GFR ( Amer) Est GFR (Non-Af Amer) POC Glucose (mg/dL) 141 H 164 H 196 H (65-110) mg/dL Random Glucose (70-110) mg/dL Calcium (8.4-10.5) mg/dL Phosphorus (2.5-4.5) mg/dL Magnesium (1.7-2.2) mg/dL Total Bilirubin (0.2-1.3) mg/dL AST (14-36) U/L ALT (7-56) U/L Alkaline Phosphatase (38-126) U/L Total Protein (5.8-8.3) g/dL Albumin (3.0-4.8) g/dL Globulin gm/dL Albumin/Globulin Ratio (1.1-1.8) Arterial Blood Potassium (3.6-5.2) mmol/L Venous Blood Potassium (3.6-5.2) mmol/L Random Vancomycin (20.0-40.0) ug/mL Influenza Type A Ab (<1:8) titer Influenza Type B Ab (<1:8) titer 10/16/17 10/16/17 10/16/17 Range/Units 15:33 13:27 12:20 WBC (4.5-11.0) 10^3/ul RBC (3.5-6.1) 10^6/uL Hgb (12.0-16.0) g/dL Hct (36.0-48.0) % MCV (80.0-105.0) fl MCH (25.0-35.0) pg MCHC (31.0-37.0) g/dl RDW (11.5-14.5) % Plt Count (120.0-450.0) 10^3/uL Whitfield % (Auto) (1.0-6.0) % Eos % (Auto) (1.5-5.0) % Baso % (Auto) (0.0-3.0) % Whitfield # (Auto) (0.1-0.6) Eos # (Auto) (0.0-0.7) Baso # (Auto) (0.0-2.0) K/mm3 pCO2 (35-45) mm/Hg pO2 163 H (30-55) mm/Hg HCO3 (21-28) mmol/L ABG pH (7.35-7.45) ABG Total CO2 (22-28) mmol.L ABG O2 Saturation (95-98) % ABG Base Excess (-2.0-3.0) mmol/L ABG Potassium (3.6-5.2) mmol/L VBG pH 7.45 H (7.32-7.43) VBG pCO2 34.0 L (40-60) VBG HCO3 23.6 (21-28) mmol/l VBG Total CO2 24.6 (22-28) mmol.L VBG O2 Sat (Calc) 99.3 H (40-65) % VBG Base Excess 0.1 (0.0-2.0) mmol/L VBG Potassium 3.9 (3.6-5.2) mmol/L Sodium 134.0 (132-148) mmol/L Chloride 100.0 (98-107) mmol/L Glucose 432 H* (65-105) mg/dl Lactate 4.0 H* (0.7-2.1) mmol/L FiO2 21.0 % Potassium (3.6-5.0) mmol/L Carbon Dioxide (21-33) mmol/L Anion Gap (10-20) BUN (7-21) mg/dL Creatinine (0.7-1.2) mg/dl Est GFR ( Amer) Est GFR (Non-Af Amer) POC Glucose (mg/dL) 311 H 323 H (65-110) mg/dL Random Glucose (70-110) mg/dL Calcium (8.4-10.5) mg/dL Phosphorus (2.5-4.5) mg/dL Magnesium (1.7-2.2) mg/dL Total Bilirubin (0.2-1.3) mg/dL AST (14-36) U/L ALT (7-56) U/L Alkaline Phosphatase (38-126) U/L Total Protein (5.8-8.3) g/dL Albumin (3.0-4.8) g/dL Globulin gm/dL Albumin/Globulin Ratio (1.1-1.8) Arterial Blood Potassium (3.6-5.2) mmol/L Venous Blood Potassium 3.9 (3.6-5.2) mmol/L Random Vancomycin (20.0-40.0) ug/mL Influenza Type A Ab (<1:8) titer Influenza Type B Ab (<1:8) titer 10/16/17 10/16/17 10/13/17 Range/Units 12:20 11:36 06:40 WBC (4.5-11.0) 10^3/ul RBC (3.5-6.1) 10^6/uL Hgb (12.0-16.0) g/dL Hct (36.0-48.0) % MCV (80.0-105.0) fl MCH (25.0-35.0) pg MCHC (31.0-37.0) g/dl RDW (11.5-14.5) % Plt Count (120.0-450.0) 10^3/uL Whitfield % (Auto) (1.0-6.0) % Eos % (Auto) (1.5-5.0) % Baso % (Auto) (0.0-3.0) % Whitfield # (Auto) (0.1-0.6) Eos # (Auto) (0.0-0.7) Baso # (Auto) (0.0-2.0) K/mm3 pCO2 (35-45) mm/Hg pO2 (30-55) mm/Hg HCO3 (21-28) mmol/L ABG pH (7.35-7.45) ABG Total CO2 (22-28) mmol.L ABG O2 Saturation (95-98) % ABG Base Excess (-2.0-3.0) mmol/L ABG Potassium (3.6-5.2) mmol/L VBG pH (7.32-7.43) VBG pCO2 (40-60) VBG HCO3 (21-28) mmol/l VBG Total CO2 (22-28) mmol.L VBG O2 Sat (Calc) (40-65) % VBG Base Excess (0.0-2.0) mmol/L VBG Potassium (3.6-5.2) mmol/L Sodium (132-148) mmol/L Chloride (98-107) mmol/L Glucose (65-105) mg/dl Lactate (0.7-2.1) mmol/L FiO2 % Potassium (3.6-5.0) mmol/L Carbon Dioxide (21-33) mmol/L Anion Gap (10-20) BUN (7-21) mg/dL Creatinine (0.7-1.2) mg/dl Est GFR ( Amer) Est GFR (Non-Af Amer) POC Glucose (mg/dL) 381 H (65-110) mg/dL Random Glucose (70-110) mg/dL Calcium (8.4-10.5) mg/dL Phosphorus (2.5-4.5) mg/dL Magnesium (1.7-2.2) mg/dL Total Bilirubin (0.2-1.3) mg/dL AST (14-36) U/L ALT (7-56) U/L Alkaline Phosphatase (38-126) U/L Total Protein (5.8-8.3) g/dL Albumin (3.0-4.8) g/dL Globulin gm/dL Albumin/Globulin Ratio (1.1-1.8) Arterial Blood Potassium (3.6-5.2) mmol/L Venous Blood Potassium (3.6-5.2) mmol/L Random Vancomycin 47.3 H* (20.0-40.0) ug/mL Influenza Type A Ab 1:64 H (<1:8) titer Influenza Type B Ab 1:32 H (<1:8) titer Laboratory Results - last 24 hr 10/13/17 10/16/17 10/16/17 06:40 11:36 12:20 WBC RBC Hgb Hct MCV MCH MCHC RDW Plt Count Whitfield % (Auto) Eos % (Auto) Baso % (Auto) Whitfield # (Auto) Eos # (Auto) Baso # (Auto) pCO2 pO2 HCO3 ABG pH ABG Total CO2 ABG O2 Saturation ABG Base Excess ABG Potassium VBG pH VBG pCO2 VBG HCO3 VBG Total CO2 VBG O2 Sat (Calc) VBG Base Excess VBG Potassium Sodium Chloride Glucose Lactate FiO2 Potassium Carbon Dioxide Anion Gap BUN Creatinine Est GFR ( Amer) Est GFR (Non-Af Amer) POC Glucose (mg/dL) 381 H Random Glucose Calcium Phosphorus Magnesium Total Bilirubin AST ALT Alkaline Phosphatase Total Protein Albumin Globulin Albumin/Globulin Ratio Arterial Blood Potassium Venous Blood Potassium Random Vancomycin 47.3 H* Influenza Type A Ab 1:64 H Influenza Type B Ab 1:32 H 10/16/17 10/16/17 10/16/17 12:20 13:27 15:33 WBC RBC Hgb Hct MCV MCH MCHC RDW Plt Count Whitfield % (Auto) Eos % (Auto) Baso % (Auto) [place]field # (Auto) Eos # (Auto) Baso # (Auto) pCO2 pO2 163 H HCO3 ABG pH ABG Total CO2 ABG O2 Saturation ABG Base Excess ABG Potassium VBG pH 7.45 H VBG pCO2 34.0 L VBG HCO3 23.6 VBG Total CO2 24.6 VBG O2 Sat (Calc) 99.3 H VBG Base Excess 0.1 VBG Potassium 3.9 Sodium 134.0 Chloride 100.0 Glucose 432 H* Lactate 4.0 H* FiO2 21.0 Potassium Carbon Dioxide Anion Gap BUN Creatinine Est GFR ( Amer) Est GFR (Non-Af Amer) POC Glucose (mg/dL) 323 H 311 H Random Glucose Calcium Phosphorus Magnesium Total Bilirubin AST ALT Alkaline Phosphatase Total Protein Albumin Globulin Albumin/Globulin Ratio Arterial Blood Potassium Venous Blood Potassium 3.9 Random Vancomycin Influenza Type A Ab Influenza Type B Ab 10/16/17 10/16/17 10/17/17 21:11 23:33 04:38 WBC RBC Hgb Hct MCV MCH MCHC RDW Plt Count Whitfield % (Auto) Eos % (Auto) Baso % (Auto) [place]field # (Auto) Eos # (Auto) Baso # (Auto) pCO2 pO2 HCO3 ABG pH ABG Total CO2 ABG O2 Saturation ABG Base Excess ABG Potassium VBG pH VBG pCO2 VBG HCO3 VBG Total CO2 VBG O2 Sat (Calc) VBG Base Excess VBG Potassium Sodium Chloride Glucose Lactate FiO2 Potassium Carbon Dioxide Anion Gap BUN Creatinine Est GFR ( Amer) Est GFR (Non-Af Amer) POC Glucose (mg/dL) 196 H 164 H 141 H Random Glucose Calcium Phosphorus Magnesium Total Bilirubin AST ALT Alkaline Phosphatase Total Protein Albumin Globulin Albumin/Globulin Ratio Arterial Blood Potassium Venous Blood Potassium Random Vancomycin Influenza Type A Ab Influenza Type B Ab 10/17/17 10/17/17 10/17/17 08:10 08:10 09:20 WBC 12.8 H D RBC 3.10 L Hgb 8.6 L Hct 24.8 L MCV 80.0 MCH 27.7 MCHC 34.7 RDW 14.1 Plt Count 63 L Whitfield % (Auto) 9.3 H Eos % (Auto) 0.3 L Baso % (Auto) 0.2 Whitfield # (Auto) 1.2 H Eos # (Auto) 0.0 Baso # (Auto) 0.03 pCO2 28 L pO2 81.0 HCO3 21.8 ABG pH 7.50 H ABG Total CO2 22.7 ABG O2 Saturation 98.8 H ABG Base Excess -1.0 ABG Potassium 3.5 L VBG pH VBG pCO2 VBG HCO3 VBG Total CO2 VBG O2 Sat (Calc) VBG Base Excess VBG Potassium Sodium 136 137.0 Chloride 99 105.0 Glucose 122 H Lactate 3.0 H FiO2 40.0 Potassium 3.7 Carbon Dioxide 24 Anion Gap 17 BUN 137 H* Creatinine 5.1 H Est GFR ( Amer) 10 Est GFR (Non-Af Amer) 8 POC Glucose (mg/dL) Random Glucose 114 H Calcium 7.9 L Phosphorus 7.7 H Magnesium 1.6 L Total Bilirubin 4.1 H AST 258 H ALT 353 H Alkaline Phosphatase 123 Total Protein 5.0 L Albumin 2.1 L Globulin 2.9 Albumin/Globulin Ratio 0.7 L Arterial Blood Potassium 3.5 L Venous Blood Potassium Random Vancomycin Influenza Type A Ab Influenza Type B Ab Fingerstick Blood Sugar Results: 106 Review of Systems - Review of Systems Systems not reviewed;Unavailable: Intubated Assessment/Plan - Assessment and Plan (Free Text) Assessment: 77 F with past medical history of HTN, dementia, s/p right hip replacement presents from [facility] (in the residential since Mar due to the hip surgery) for AMS and lethargy s/p cardiac arrest found to be in Hyperglycemic Hyperosmolar Nonketotic Coma (HONK), Hypernatremic, and septic shock secondary to HCAP. Neuro: -Baseline severe dementia -Altered mentation CV: -Maintain MAP > 65 -Continue to hold HTN medications Pulm: -Maintain SPO2 > 90 % -Continue with duonebs -Patient placed back on PRVC 40 5 15 400 GI: -NPO continue on IVF -No enteral feeds considering family's desire to not have further treatment Renal: -Monitor I&O -Monitor and replete electrolytes as needed -Hypernatremia resolved -Renal function is worsening however patient's family have decided against dialysis. Patient is also not seen as a candidate as per nephro. ID: -ID consulted for recs -New onset leukocytosis -Lactate downtrending -Continue doxycycline and merrem -Continue with mupirocin Endo: -Continue with insulin sliding scale-medium -Maintain euglycemia and normothermia Hematologic -H&H stable Skin -Upper and lower extremities continue to be cyanotic Dispo: patient's family as a whole has decided for terminal extubation Monday10/18/2017. Patient's family does not want aggressive treatment. <Helio Mcgovern - Last Filed: 10/17/17 12:05> CCU Objective - Vital Signs / Intake & Output Intake and Output (Last 8hrs): Intake & Output 10/16/17 10/17/17 10/17/17 22:59 06:59 14:59 Intake Total 1250 100 Output Total 40 40 Balance 1210 60 Weight 140 lb 4.8 oz Intake: IV 1250 100 Left Femoral 1250 100 Output: Urine 40 40 Urethral (Alexandre) 40 40 Other: # Bowel Movements 0 - Medications Active Medications: Active Medications Generic Name Dose Route Start Last Admin Trade Name Freq PRN Reason Stop Dose Admin Albuterol/Ipratropium 3 ml 10/11/17 02:00 10/17/17 07:40 Duoneb 3 Mg/0.5 Mg (3 Ml) Ud IH 3 ml [id number] JONNY Administration Albuterol/Ipratropium 3 ml 10/10/17 23:20 Duoneb 3 Mg/0.5 Mg (3 Ml) Ud IH Q2H PRN Shortness of Breath Doxercalciferol 1 mcg 10/12/17 10:00 10/17/17 10:22 Hectorol IV 1 mcg DAILY JONNY Administration Famotidine 10 mg 10/12/17 12:00 10/17/17 10:23 Pepcid IVP 10 mg DAILY JONNY Administration Doxycycline Hyclate 100 mg/ 100 mls @ 100 mls/hr 10/11/17 22:00 10/17/17 10: 24 Sodium Chloride IVPB 100 mls/hr Q12 JONNY Administration Protocol Meropenem 500 mg/ Sodium 50 mls @ 100 mls/hr 10/12/17 10:00 10/17/17 10:23 Chloride IVPB 100 mls/hr DAILY JONNY Administration Protocol Insulin Human Regular 0 units 10/16/17 15:30 10/17/17 08:11 Humulin R High SC Not Given Q4H JONNY Protocol Morphine Sulfate 2 mg 10/16/17 10:40 Morphine IV Q6H PRN Pain, moderate (4-7) Vitamin A 1 ea 10/17/17 07:00 10/17/17 06:31 Vitamin A & D Oint Foilpak TOP 1 ea QSHIFT JONNY Administration - Patient Studies Lab Studies: Lab Studies 10/17/17 10/17/17 10/17/17 Range/Units 09:20 08:10 08:10 WBC 12.8 H D (4.5-11.0) 10^3/ul RBC 3.10 L (3.5-6.1) 10^6/uL Hgb 8.6 L (12.0-16.0) g/dL Hct 24.8 L (36.0-48.0) % MCV 80.0 (80.0-105.0) fl MCH 27.7 (25.0-35.0) pg MCHC 34.7 (31.0-37.0) g/dl RDW 14.1 (11.5-14.5) % Plt Count 63 L (120.0-450.0) 10^3/uL Whitfield % (Auto) 9.3 H (1.0-6.0) % Eos % (Auto) 0.3 L (1.5-5.0) % Baso % (Auto) 0.2 (0.0-3.0) % Whitfield # (Auto) 1.2 H (0.1-0.6) Eos # (Auto) 0.0 (0.0-0.7) Baso # (Auto) 0.03 (0.0-2.0) K/mm3 pCO2 28 L (35-45) mm/Hg pO2 81.0 (30-55) mm/Hg HCO3 21.8 (21-28) mmol/L ABG pH 7.50 H (7.35-7.45) ABG Total CO2 22.7 (22-28) mmol.L ABG O2 Saturation 98.8 H (95-98) % ABG Base Excess -1.0 (-2.0-3.0) mmol/L ABG Potassium 3.5 L (3.6-5.2) mmol/L VBG pH (7.32-7.43) VBG pCO2 (40-60) VBG HCO3 (21-28) mmol/l VBG Total CO2 (22-28) mmol.L VBG O2 Sat (Calc) (40-65) % VBG Base Excess (0.0-2.0) mmol/L VBG Potassium (3.6-5.2) mmol/L Sodium 137.0 136 (132-148) mmol/L Chloride 105.0 99 (98-107) mmol/L Glucose 122 H (65-105) mg/dl Lactate 3.0 H (0.7-2.1) mmol/L FiO2 40.0 % Potassium 3.7 (3.6-5.0) mmol/L Carbon Dioxide 24 (21-33) mmol/L Anion Gap 17 (10-20) BUN 137 H* (7-21) mg/dL Creatinine 5.1 H (0.7-1.2) mg/dl Est GFR ( Amer) 10 Est GFR (Non-Af Amer) 8 POC Glucose (mg/dL) (65-110) mg/dL Random Glucose 114 H (70-110) mg/dL Calcium 7.9 L (8.4-10.5) mg/dL Phosphorus 7.7 H (2.5-4.5) mg/dL Magnesium 1.6 L (1.7-2.2) mg/dL Total Bilirubin 4.1 H (0.2-1.3) mg/dL AST 258 H (14-36) U/L ALT 353 H (7-56) U/L Alkaline Phosphatase 123 (38-126) U/L Total Protein 5.0 L (5.8-8.3) g/dL Albumin 2.1 L (3.0-4.8) g/dL Globulin 2.9 gm/dL Albumin/Globulin Ratio 0.7 L (1.1-1.8) Arterial Blood Potassium 3.5 L (3.6-5.2) mmol/L Venous Blood Potassium (3.6-5.2) mmol/L Random Vancomycin (20.0-40.0) ug/mL Influenza Type A Ab (<1:8) titer Influenza Type B Ab (<1:8) titer 10/17/17 10/16/17 10/16/17 Range/Units 04:38 23:33 21:11 WBC (4.5-11.0) 10^3/ul RBC (3.5-6.1) 10^6/uL Hgb (12.0-16.0) g/dL Hct (36.0-48.0) % MCV (80.0-105.0) fl MCH (25.0-35.0) pg MCHC (31.0-37.0) g/dl RDW (11.5-14.5) % Plt Count (120.0-450.0) 10^3/uL Whitfield % (Auto) (1.0-6.0) % Eos % (Auto) (1.5-5.0) % Baso % (Auto) (0.0-3.0) % [place]field # (Auto) (0.1-0.6) Eos # (Auto) (0.0-0.7) Baso # (Auto) (0.0-2.0) K/mm3 pCO2 (35-45) mm/Hg pO2 (30-55) mm/Hg HCO3 (21-28) mmol/L ABG pH (7.35-7.45) ABG Total CO2 (22-28) mmol.L ABG O2 Saturation (95-98) % ABG Base Excess (-2.0-3.0) mmol/L ABG Potassium (3.6-5.2) mmol/L VBG pH (7.32-7.43) VBG pCO2 (40-60) VBG HCO3 (21-28) mmol/l VBG Total CO2 (22-28) mmol.L VBG O2 Sat (Calc) (40-65) % VBG Base Excess (0.0-2.0) mmol/L VBG Potassium (3.6-5.2) mmol/L Sodium (132-148) mmol/L Chloride (98-107) mmol/L Glucose (65-105) mg/dl Lactate (0.7-2.1) mmol/L FiO2 % Potassium (3.6-5.0) mmol/L Carbon Dioxide (21-33) mmol/L Anion Gap (10-20) BUN (7-21) mg/dL Creatinine (0.7-1.2) mg/dl Est GFR ( Amer) Est GFR (Non-Af Amer) POC Glucose (mg/dL) 141 H 164 H 196 H (65-110) mg/dL Random Glucose (70-110) mg/dL Calcium (8.4-10.5) mg/dL Phosphorus (2.5-4.5) mg/dL Magnesium (1.7-2.2) mg/dL Total Bilirubin (0.2-1.3) mg/dL AST (14-36) U/L ALT (7-56) U/L Alkaline Phosphatase (38-126) U/L Total Protein (5.8-8.3) g/dL Albumin (3.0-4.8) g/dL Globulin gm/dL Albumin/Globulin Ratio (1.1-1.8) Arterial Blood Potassium (3.6-5.2) mmol/L Venous Blood Potassium (3.6-5.2) mmol/L Random Vancomycin (20.0-40.0) ug/mL Influenza Type A Ab (<1:8) titer Influenza Type B Ab (<1:8) titer 10/16/17 10/16/17 10/16/17 Range/Units 15:33 13:27 12:20 WBC (4.5-11.0) 10^3/ul RBC (3.5-6.1) 10^6/uL Hgb (12.0-16.0) g/dL Hct (36.0-48.0) % MCV (80.0-105.0) fl MCH (25.0-35.0) pg MCHC (31.0-37.0) g/dl RDW (11.5-14.5) % Plt Count (120.0-450.0) 10^3/uL [place] % (Auto) (1.0-6.0) % Eos % (Auto) (1.5-5.0) % Baso % (Auto) (0.0-3.0) % [place] # (Auto) (0.1-0.6) Eos # (Auto) (0.0-0.7) Baso # (Auto) (0.0-2.0) K/mm3 pCO2 (35-45) mm/Hg pO2 163 H (30-55) mm/Hg HCO3 (21-28) mmol/L ABG pH (7.35-7.45) ABG Total CO2 (22-28) mmol.L ABG O2 Saturation (95-98) % ABG Base Excess (-2.0-3.0) mmol/L ABG Potassium (3.6-5.2) mmol/L VBG pH 7.45 H (7.32-7.43) VBG pCO2 34.0 L (40-60) VBG HCO3 23.6 (21-28) mmol/l VBG Total CO2 24.6 (22-28) mmol.L VBG O2 Sat (Calc) 99.3 H (40-65) % VBG Base Excess 0.1 (0.0-2.0) mmol/L VBG Potassium 3.9 (3.6-5.2) mmol/L Sodium 134.0 (132-148) mmol/L Chloride 100.0 (98-107) mmol/L Glucose 432 H* (65-105) mg/dl Lactate 4.0 H* (0.7-2.1) mmol/L FiO2 21.0 % Potassium (3.6-5.0) mmol/L Carbon Dioxide (21-33) mmol/L Anion Gap (10-20) BUN (7-21) mg/dL Creatinine (0.7-1.2) mg/dl Est GFR ( Amer) Est GFR (Non-Af Amer) POC Glucose (mg/dL) 311 H 323 H (65-110) mg/dL Random Glucose (70-110) mg/dL Calcium (8.4-10.5) mg/dL Phosphorus (2.5-4.5) mg/dL Magnesium (1.7-2.2) mg/dL Total Bilirubin (0.2-1.3) mg/dL AST (14-36) U/L ALT (7-56) U/L Alkaline Phosphatase (38-126) U/L Total Protein (5.8-8.3) g/dL Albumin (3.0-4.8) g/dL Globulin gm/dL Albumin/Globulin Ratio (1.1-1.8) Arterial Blood Potassium (3.6-5.2) mmol/L Venous Blood Potassium 3.9 (3.6-5.2) mmol/L Random Vancomycin (20.0-40.0) ug/mL Influenza Type A Ab (<1:8) titer Influenza Type B Ab (<1:8) titer 10/16/17 10/13/17 Range/Units 12:20 06:40 WBC (4.5-11.0) 10^3/ul RBC (3.5-6.1) 10^6/uL Hgb (12.0-16.0) g/dL Hct (36.0-48.0) % MCV (80.0-105.0) fl MCH (25.0-35.0) pg MCHC (31.0-37.0) g/dl RDW (11.5-14.5) % Plt Count (120.0-450.0) 10^3/uL [place] % (Auto) (1.0-6.0) % Eos % (Auto) (1.5-5.0) % Baso % (Auto) (0.0-3.0) % [place] # (Auto) (0.1-0.6) Eos # (Auto) (0.0-0.7) Baso # (Auto) (0.0-2.0) K/mm3 pCO2 (35-45) mm/Hg pO2 (30-55) mm/Hg HCO3 (21-28) mmol/L ABG pH (7.35-7.45) ABG Total CO2 (22-28) mmol.L ABG O2 Saturation (95-98) % ABG Base Excess (-2.0-3.0) mmol/L ABG Potassium (3.6-5.2) mmol/L VBG pH (7.32-7.43) VBG pCO2 (40-60) VBG HCO3 (21-28) mmol/l VBG Total CO2 (22-28) mmol.L VBG O2 Sat (Calc) (40-65) % VBG Base Excess (0.0-2.0) mmol/L VBG Potassium (3.6-5.2) mmol/L Sodium (132-148) mmol/L Chloride (98-107) mmol/L Glucose (65-105) mg/dl Lactate (0.7-2.1) mmol/L FiO2 % Potassium (3.6-5.0) mmol/L Carbon Dioxide (21-33) mmol/L Anion Gap (10-20) BUN (7-21) mg/dL Creatinine (0.7-1.2) mg/dl Est GFR ( Amer) Est GFR (Non-Af Amer) POC Glucose (mg/dL) (65-110) mg/dL Random Glucose (70-110) mg/dL Calcium (8.4-10.5) mg/dL Phosphorus (2.5-4.5) mg/dL Magnesium (1.7-2.2) mg/dL Total Bilirubin (0.2-1.3) mg/dL AST (14-36) U/L ALT (7-56) U/L Alkaline Phosphatase (38-126) U/L Total Protein (5.8-8.3) g/dL Albumin (3.0-4.8) g/dL Globulin gm/dL Albumin/Globulin Ratio (1.1-1.8) Arterial Blood Potassium (3.6-5.2) mmol/L Venous Blood Potassium (3.6-5.2) mmol/L Random Vancomycin 47.3 H* (20.0-40.0) ug/mL Influenza Type A Ab 1:64 H (<1:8) titer Influenza Type B Ab 1:32 H (<1:8) titer Laboratory Results - last 24 hr 10/13/17 10/16/17 10/16/17 06:40 12:20 12:20 WBC RBC Hgb Hct MCV MCH MCHC RDW Plt Count [place] % (Auto) Eos % (Auto) Baso % (Auto) [place] # (Auto) Eos # (Auto) Baso # (Auto) pCO2 pO2 163 H HCO3 ABG pH ABG Total CO2 ABG O2 Saturation ABG Base Excess ABG Potassium VBG pH 7.45 H VBG pCO2 34.0 L VBG HCO3 23.6 VBG Total CO2 24.6 VBG O2 Sat (Calc) 99.3 H VBG Base Excess 0.1 VBG Potassium 3.9 Sodium 134.0 Chloride 100.0 Glucose 432 H* Lactate 4.0 H* FiO2 21.0 Potassium Carbon Dioxide Anion Gap BUN Creatinine Est GFR ( Amer) Est GFR (Non-Af Amer) POC Glucose (mg/dL) Random Glucose Calcium Phosphorus Magnesium Total Bilirubin AST ALT Alkaline Phosphatase Total Protein Albumin Globulin Albumin/Globulin Ratio Arterial Blood Potassium Venous Blood Potassium 3.9 Random Vancomycin 47.3 H* Influenza Type A Ab 1:64 H Influenza Type B Ab 1:32 H 10/16/17 10/16/17 10/16/17 13:27 15:33 21:11 WBC RBC Hgb Hct MCV MCH MCHC RDW Plt Count [place] % (Auto) Eos % (Auto) Baso % (Auto) [place] # (Auto) Eos # (Auto) Baso # (Auto) pCO2 pO2 HCO3 ABG pH ABG Total CO2 ABG O2 Saturation ABG Base Excess ABG Potassium VBG pH VBG pCO2 VBG HCO3 VBG Total CO2 VBG O2 Sat (Calc) VBG Base Excess VBG Potassium Sodium Chloride Glucose Lactate FiO2 Potassium Carbon Dioxide Anion Gap BUN Creatinine Est GFR ( Amer) Est GFR (Non-Af Amer) POC Glucose (mg/dL) 323 H 311 H 196 H Random Glucose Calcium Phosphorus Magnesium Total Bilirubin AST ALT Alkaline Phosphatase Total Protein Albumin Globulin Albumin/Globulin Ratio Arterial Blood Potassium Venous Blood Potassium Random Vancomycin Influenza Type A Ab Influenza Type B Ab 10/16/17 10/17/17 10/17/17 23:33 04:38 08:10 WBC 12.8 H D RBC 3.10 L Hgb 8.6 L Hct 24.8 L MCV 80.0 MCH 27.7 MCHC 34.7 RDW 14.1 Plt Count 63 L Whitfield % (Auto) 9.3 H Eos % (Auto) 0.3 L Baso % (Auto) 0.2 [place]field # (Auto) 1.2 H Eos # (Auto) 0.0 Baso # (Auto) 0.03 pCO2 pO2 HCO3 ABG pH ABG Total CO2 ABG O2 Saturation ABG Base Excess ABG Potassium VBG pH VBG pCO2 VBG HCO3 VBG Total CO2 VBG O2 Sat (Calc) VBG Base Excess VBG Potassium Sodium Chloride Glucose Lactate FiO2 Potassium Carbon Dioxide Anion Gap BUN Creatinine Est GFR ( Amer) Est GFR (Non-Af Amer) POC Glucose (mg/dL) 164 H 141 H Random Glucose Calcium Phosphorus Magnesium Total Bilirubin AST ALT Alkaline Phosphatase Total Protein Albumin Globulin Albumin/Globulin Ratio Arterial Blood Potassium Venous Blood Potassium Random Vancomycin Influenza Type A Ab Influenza Type B Ab 10/17/17 10/17/17 08:10 09:20 WBC RBC Hgb Hct MCV MCH MCHC RDW Plt Count Whitfield % (Auto) Eos % (Auto) Baso % (Auto) Whitfield # (Auto) Eos # (Auto) Baso # (Auto) pCO2 28 L pO2 81.0 HCO3 21.8 ABG pH 7.50 H ABG Total CO2 22.7 ABG O2 Saturation 98.8 H ABG Base Excess -1.0 ABG Potassium 3.5 L VBG pH VBG pCO2 VBG HCO3 VBG Total CO2 VBG O2 Sat (Calc) VBG Base Excess VBG Potassium Sodium 136 137.0 Chloride 99 105.0 Glucose 122 H Lactate 3.0 H FiO2 40.0 Potassium 3.7 Carbon Dioxide 24 Anion Gap 17 BUN 137 H* Creatinine 5.1 H Est GFR ( Amer) 10 Est GFR (Non-Af Amer) 8 POC Glucose (mg/dL) Random Glucose 114 H Calcium 7.9 L Phosphorus 7.7 H Magnesium 1.6 L Total Bilirubin 4.1 H AST 258 H ALT 353 H Alkaline Phosphatase 123 Total Protein 5.0 L Albumin 2.1 L Globulin 2.9 Albumin/Globulin Ratio 0.7 L Arterial Blood Potassium 3.5 L Venous Blood Potassium Random Vancomycin Influenza Type A Ab Influenza Type B Ab Attending/Attestation - Attestation I have personally seen and examined this patient.: Yes I have fully participated in the care of the patient.: Yes I have reviewed all pertinent clinical information: Yes Notes (Text): 10/17/17 12:03 The patient was seen and examined at the bedside. Patient care was discussed with resident Medical records, lab studies, and imaging were reviewed and management issues were discussed and formulated. Last 24H events reviewed. Agree with above treatment plans as outlined in 's note with addition of the following: Acute Respiratory Failure \ Hypoxemia \ OSWALDO on CKD \ Sepsis \ PNA \ DM \ Thrombocytopenia \ DIC \ Elevated LFT -hemodynamic monitoring to maintain MAP>65 -mechanical ventilation to maintain Spo2>90 Pao2>60; current mode PRVC -monitor for TV 6ml\kg IBW and plateau pressure <30 -ABG reviewed and CXR reviewed -continue nebs and pulmonary toileting -Continue broad spectrum Abx as per ID team and f\u cultures -f\u Bun\Cr and U\o; renal team following closely -f\u INR and CBC, monitor for bleed; consider heme\onc eval -tube feeds diet and aspiration precautions -f\u serial LFT, likely shock liver, improving -ISS and BGM monitoring -DVT \ PUD prophylaxis -palliation team following . Terminal extubation planned for monday as per family wishes. Pt is DNR code status as per family wishes. CCM f\u 30min
--- NOTE | 2017-10-17 12:40 | CP.PCM.PN ---
Subjective - Date & Time of Evaluation Date of Evaluation: 10/17/17 Time of Evaluation: 10:00 - Subjective Subjective: S&E at bedside earlier today, chart reviewed, patient No reports of overt GI bleed. remains lethargic and not really responsive. No acute events overnight reported. Objective - Vital Signs/Intake and Output Vital Signs (last 24 hours): Temp Pulse Resp BP Pulse Ox 98.4 F 107 H 20 113/45 L 100 10/17/17 08:00 10/17/17 08:01 10/16/17 00:04 10/17/17 08:01 10/17/17 08:01 Intake and Output: 10/17/17 10/17/17 06:59 18:59 Intake Total 100 Output Total 40 Balance 60 - Medications Medications: Current Medications Albuterol/Ipratropium (Duoneb 3 Mg/0.5 Mg (3 Ml) Ud) 3 ml IH O4ONESK [facility] Last Admin: 10/17/17 07:40 Dose: 3 ml Albuterol/Ipratropium (Duoneb 3 Mg/0.5 Mg (3 Ml) Ud) 3 ml IH Q2H PRN PRN Reason: Shortness of Breath Doxercalciferol (Hectorol) 1 mcg IV DAILY JONNY Last Admin: 10/17/17 10:22 Dose: 1 mcg Famotidine (Pepcid) 10 mg IVP DAILY [facility] Last Admin: 10/17/17 10:23 Dose: 10 mg Doxycycline Hyclate 100 mg/ (Sodium Chloride) 100 mls @ 100 mls/hr IVPB Q12 JONNY PRN Reason: Protocol Last Admin: 10/17/17 10:24 Dose: 100 mls/hr Meropenem 500 mg/ Sodium (Chloride) 50 mls @ 100 mls/hr IVPB DAILY JONNY PRN Reason: Protocol Last Admin: 10/17/17 10:23 Dose: 100 mls/hr Insulin Human Regular (Humulin R High) 0 units SC Q4H JONNY PRN Reason: Protocol Last Admin: 10/17/17 08:11 Dose: Not Given Morphine Sulfate (Morphine) 2 mg IV Q6H PRN PRN Reason: Pain, moderate (4-7) Vitamin A (Vitamin A & D Oint Ud Foilpak) 1 ea TOP QSHIFT [facility] Last Admin: 10/17/17 06:31 Dose: 1 ea - Labs Labs: 10/17/17 08:10 10/17/17 08:10 PT 25.0 SECONDS (9.4-12.5) H 10/16/17 06:50 INR 2.14 (0.93-1.08) H 10/16/17 06:50 APTT 34.1 Seconds (25.1-36.5) 10/16/17 06:50 - Constitutional Appears: Chronically Ill - Head Exam Head Exam: NORMOCEPHALIC - Eye Exam Eye Exam: Normal appearance. absent: Scleral icterus - ENT Exam ENT Exam: Mucous Membranes Moist - Neck Exam Neck Exam: Normal Inspection - Respiratory Exam Respiratory Exam: NORMAL BREATHING PATTERN. absent: Respiratory Distress - Cardiovascular Exam Cardiovascular Exam: +S1, +S2 - GI/Abdominal Exam GI & Abdominal Exam: Distended, Soft, Normal Bowel Sounds. absent: Tenderness - Extremities Exam Extremities Exam: Pedal Edema Additional comments: feet cool to touch, cyanotic - Neurological Exam Neurological Exam: Altered - Skin Skin Exam: Dry, Warm Assessment and Plan - Assessment and Plan (Free Text) Assessment: Assessment: Status post respiratory failure, extubated 10/13/2017 Sepsis Anemia Acute on Chronic RF History of dementia Polypoid vascular lesion with bleeding in the rectum with hemoclips placed. Plan: Monitor H&H and for overt GI bleed on GI prophylaxis Continue DVT prophylaxis On IV antibiotics NPO on IVF Family may plan for terminal intubation. No planned GI intervention. Continue current care. Seen and discussed with Dr. Rust.
--- NOTE | 2017-10-17 16:49 | PN ---
DATE: 10/17/2017 SUBJECTIVE: A lengthy discussion with the rubber goods inspector, lengthy discussion with 2 sisters and 2 [id number]. There was some concern about the possibility of initiating dialysis with the attempt for extubation. After lengthy discussion, I believe that the patient's family will revert back to the original plan of terminal extubation, which will take place tomorrow. MEDICATIONS: Medication list reviewed. The patient is currently on doxycycline, DuoNeb, Hectorol, sliding scale insulin, meropenem, morphine, Pepcid and vitamin A and D ointment. OBJECTIVE: INTAKE/OUTPUT: Intake 1350, output is down to 80 mL of urine. VITAL SIGNS: Blood pressure is 125/49, pulse is 105, temperature is 98.4. Respiratory rate is 20. The patient remains on a ventilator. She occasionally opens her eyes, but is essentially unresponsive. HEENT: The patient is intubated. Normocephalic, atraumatic. Sclerae are icteric. Conjunctivae are pale. NECK: Supple. No neck vein distention. CHEST: Bilateral rhonchi with coarse breath sounds. No rales or wheezing. Decreased breath sounds at the bases. CARDIOVASCULAR: Shows an S1, S2, which are regular. No audible murmurs, rubs or gallops. ABDOMEN: Soft. Nondistended. Bowel sounds decreased. No masses. No rebound or guarding. EXTREMITIES: Show 1 to 2+ pitting edema of her lower extremity. Arms are puffy with nonpitting edema. NEURO: Shows her to be essentially unresponsive. She will occasionally open her eyes to loud verbal communication. LABORATORY DATA AND IMAGING: CBC: White blood cell count 12.8, hemoglobin 8.6, platelet count of 63,000. Coag show an elevated PT/INR with an elevated D-dimer. PTT is 34.1. Blood gas today pCO2 of 28 with a pH of 7.50 and a pO2 of 81. Chemistries today showed normal electrolytes. BUN is down to 137 with a creatinine of 5.1. Back in July, she had a normal BUN and creatinine. On admission to the hospital, her BUN was 80 with a creatinine of 1.3. Glucose is 114, calcium is 7.9, phosphorus is elevated at 7.7, magnesium is 1.4, bilirubin is elevated at 4.1. Liver enzymes are elevated, but dropping closer to the normal range. Albumin is 2.1, hence her corrected calcium level was normal. Vancomycin random level today is 49.1. Serologies: Negative hepatitis serologies. Positive influenza titers. Microbiology: Urine cultures are positive for yeast. Sputum cultures are positive for MRSA and Klebsiella pneumoniae. ASSESSMENT: 1. Acute renal failure in a patient with no past history of chronic kidney disease back in 07/2017. This is all in the setting of a cardiac arrest, renal hypoperfusion, acute tubular necrosis, sepsis and disseminated intravascular coagulation. The patient had normal kidneys on her abdominal and pelvic CT scan done earlier during the hospitalization. Lengthy discussion with the patient about the possibility of renal replacement therapy in light of her advanced dementia and likely cardiac arrest with anoxia. I do not feel that initiating dialysis will allow her to come off the ventilator. With that mentioned to the family, her 2 sisters and their husbands, everybody is in agreement that they will proceed with terminal extubation tomorrow. 2. Severe sepsis, methicillin-resistant Staphylococcus aureus and Klebsiella pneumoniae, left lower lobe pneumonia. On antibiotic therapy. 3. Shock liver secondary to cardiac arrest with hypoperfusion. 4. Pancytopenia with coagulopathy, likely consistent with disseminated intravascular coagulation secondary to sepsis. 5. 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 This would all make the ability to extubate her very unlikely. 6. Vancomycin toxicity. Vancomycin has currently been discontinued. PLAN: 1. Lengthy discussion with Dr. Mcgovern, the rubber goods inspector and family members. There is really no role for renal replacement therapy here as I do not think it is going to effect the final result. Therefore I did not suggest to the family that we initiate a course of dialysis with the hope of extubation. 2. Continue antibiotic therapy as per Infectious Disease. 3. Continue to monitor the patient in the ICU. 4. Agree with plans for terminal extubation tomorrow. 5. Greater than 45 minutes spent in the care of this critically ill patient. Jae Mason MD
--- NOTE | 2017-10-17 17:28 | CP.PCM.PN ---
Subjective - Date & Time of Evaluation Date of Evaluation: 10/17/17 Time of Evaluation: 15:00 - Subjective Subjective: Eyes open, unable to follow command Objective - Vital Signs/Intake and Output Vital Signs (last 24 hours): Temp Pulse Resp BP Pulse Ox 98.4 F 105 H 20 125/49 L 98 10/17/17 08:00 10/17/17 15:00 10/16/17 00:04 10/17/17 15:00 10/17/17 15:00 Intake and Output: 10/17/17 10/17/17 06:59 18:59 Intake Total 100 Output Total 40 Balance 60 - Medications Medications: Current Medications Albuterol/Ipratropium (Duoneb 3 Mg/0.5 Mg (3 Ml) Ud) 3 ml IH [id number] [facility] Last Admin: 10/17/17 13:20 Dose: 3 ml Albuterol/Ipratropium (Duoneb 3 Mg/0.5 Mg (3 Ml) Ud) 3 ml IH Q2H PRN PRN Reason: Shortness of Breath Doxercalciferol (Hectorol) 1 mcg IV DAILY [facility] Last Admin: 10/17/17 10:22 Dose: 1 mcg Famotidine (Pepcid) 10 mg IVP DAILY [facility] Last Admin: 10/17/17 10:23 Dose: 10 mg Doxycycline Hyclate 100 mg/ (Sodium Chloride) 100 mls @ 100 mls/hr IVPB Q12 JONNY PRN Reason: Protocol Last Admin: 10/17/17 10:24 Dose: 100 mls/hr Meropenem 500 mg/ Sodium (Chloride) 50 mls @ 100 mls/hr IVPB DAILY JONNY PRN Reason: Protocol Last Admin: 10/17/17 10:23 Dose: 100 mls/hr Insulin Human Regular (Humulin R High) 0 units SC Q4H JONNY PRN Reason: Protocol Last Admin: 10/17/17 16:23 Dose: Not Given Morphine Sulfate (Morphine) 2 mg IV Q6H PRN PRN Reason: Pain, moderate (4-7) Vitamin A (Vitamin A & D Oint Ud Foilpak) 1 ea TOP QSHIFT [facility] Last Admin: 10/17/17 17:18 Dose: 1 ea - Labs Labs: 10/17/17 08:10 10/17/17 08:10 PT 25.0 SECONDS (9.4-12.5) H 10/16/17 06:50 INR 2.14 (0.93-1.08) H 10/16/17 06:50 APTT 34.1 Seconds (25.1-36.5) 10/16/17 06:50 - Constitutional Appears: Chronically Ill - Head Exam Head Exam: NORMAL INSPECTION - Eye Exam Eye Exam: Normal appearance, PERRL - ENT Exam ENT Exam: Mucous Membranes Moist - Respiratory Exam Respiratory Exam: Decreased Breath Sounds - Cardiovascular Exam Cardiovascular Exam: Tachycardia, +S1, +S2 - GI/Abdominal Exam GI & Abdominal Exam: Soft, Diminished Bowel Sounds - Exam Additional comments: oliguria - Extremities Exam Additional comments: edematous - Skin Skin Exam: Dry, Pallor Assessment and Plan - Assessment and Plan (Free Text) Assessment: 77 year old female with history of dementia,HTN,DM who was admitted with respiratory failure, anemia,thrombocytopenia, sepsis, OSWALDO. Patients family at bedside. Lengthy discussion regarding goals of care. Family understands that patient is terminally ill. Family does not want trach/peg/ dialysis. Family has decided to proceed with terminal extubation tomorrow. Process for extubation explained. Hospice services alos explained. Hospice care also explained in detail. Questions answered Time soent with family in goals of care and avance care planning discussion, 30 minutes Plan: Will evaluate patient tomorrow post extubation to determine if she will transition to [facility] hospice care
--- NOTE | 2017-10-17 19:33 | PN ---
DATE: 10/17/2017 SUBJECTIVE: The patient is a 77-year-old, seen and examined, remain intubated. She is more alert. Does not have eye contact. Open eyes spontaneously. PHYSICAL EXAMINATION: VITAL SIGNS: She is afebrile, pulse 107, respirations 20, blood pressure 117/60. LUNGS: Bilateral fair respiratory effort. HEART: S1, S2 audible. ABDOMEN: Soft, nontender, no rebound, no guarding. NEUROLOGICAL: The patient is non-communicative and on vent. EXTREMITIES: Bilateral leg +1 edema. LABORATORY EXAM: WBC is 12.8, hemoglobin 8.6, hematocrit 24.8, platelets of 63. PT 25, INR 2.14. Chemistry: Sodium 136, potassium 3.7, chloride 99, CO2 24, BUN 137, creatinine 5.1, blood sugar of 108. ASSESSMENT: 1. Respiratory failure. 2. Status post current intubation. 3. Acute renal failure. 4. Multilobar pneumonia. 5. History of gastrointestinal bleed. 6. Dementia. 7. Electrolyte imbalance. PLAN: Currently, the patient is on IV fluids. She is on doxycycline. She is on nebulizer treatment. She is on meropenem. We will monitor blood sugar. She will be getting weaning trial tomorrow and might have terminal extubation as per family and at this point, she is DNR and prognosis is poor. Davon Marie MD
[2017-10-18] MEDS: Insulin Reg-HIGH-Coverage SC SCH ×4 (00:08→11:30)
[2017-10-18] MEDS: Albuterol-Ipratrop 3 mg / 0.5 (3 ml) UD IH SCH ×3 (01:54→13:36)
[2017-10-18 06:52] LABS: BASO # 0.02 K/mm3 (0.0-2.0); BASO % 0.1 % (0.0-3.0); EOS % 0.1 % (1.5-5.0); GRAN # 11.26 (1.4-6.5); GRAN % 75.1 % (50.0-68.0); HEMOGLOBIN 8.1 g/dL (12.0-16.0); LYMPH # 2.6 (1.2-3.4); LYMPH % 17.4 % (22.0-35.0); MEAN CELL VOLUME 80.3 fl (80.0-105.0); MEAN CORPUSCULAR HEMOGLOBIN 27.6 pg (25.0-35.0); MEAN CORPUSCULAR HGB CONC 34.3 g/dl (31.0-37.0); MONO # 1.1 (0.1-0.6); MONO % 7.3 % (1.0-6.0); PLATELET COUNT 103 10^3/uL (120.0-450.0); RBC 2.94 10^6/uL (3.5-6.1); RED CELL DISTRIBUTION WIDTH 14.5 % (11.5-14.5)
[2017-10-18 07:14] LABS: ALB/GLOB RATIO 0.7 (1.1-1.8); CALCIUM 8.8 mg/dL (8.4-10.5)
[2017-10-18 08:39] LABS: ANISOCYTOSIS 1+; BAND 1 % (0-2); LYMPHOCYTE 16 % (22.0-35.0); MONOCYTE 5 % (1.0-6.0); NEUTROPHIL 78 % (50.0-70.0); NUCLEATED RED BLOOD CELL 1 %; POIKILOCYTOSIS 1+
[2017-10-18 08:40] LABS: BURR CELLS 1+; MICROCYTOSIS 2+; OVALOCYTES SLIGHT
[2017-10-18 08:41] LABS: TARGET CELLS SLIGHT
[2017-10-18] MEDS: Meropenem 500 MG in Sodium Chloride 0.9% 50 ML IVPB SCH (09:17)
[2017-10-18] MEDS: Vitamins A & D Oint UD Foilpak TOP SCH (09:18)
--- NOTE | 2017-10-18 10:58 | CP.PCM.PN ---
Subjective - Date & Time of Evaluation Date of Evaluation: 10/18/17 Time of Evaluation: 10:00 - Subjective Subjective: Patient remains intubated and poorly responsive, no fevers overnight. No diarrhea. Objective - Vital Signs/Intake and Output Vital Signs (last 24 hours): Temp Pulse Resp BP Pulse Ox 97.6 F 111 H 19 126/70 97 10/18/17 08:00 10/18/17 08:00 10/18/17 08:00 10/18/17 08:00 10/18/17 08:00 Intake and Output: 10/18/17 10/18/17 06:59 18:59 Intake Total 155 Output Total 30 Balance 125 - Medications Medications: Current Medications Albuterol/Ipratropium (Duoneb 3 Mg/0.5 Mg (3 Ml) Ud) 3 ml IH [id number] [facility] Last Admin: 10/18/17 07:20 Dose: 3 ml Albuterol/Ipratropium (Duoneb 3 Mg/0.5 Mg (3 Ml) Ud) 3 ml IH Q2H PRN PRN Reason: Shortness of Breath Doxercalciferol (Hectorol) 1 mcg IV DAILY [facility] Last Admin: 10/17/17 10:22 Dose: 1 mcg Famotidine (Pepcid) 10 mg IVP DAILY [facility] Last Admin: 10/17/17 10:23 Dose: 10 mg Doxycycline Hyclate 100 mg/ (Sodium Chloride) 100 mls @ 100 mls/hr IVPB Q12 JONNY PRN Reason: Protocol Last Admin: 10/17/17 22:00 Dose: 100 mls/hr Meropenem 500 mg/ Sodium (Chloride) 50 mls @ 100 mls/hr IVPB DAILY JONNY PRN Reason: Protocol Last Admin: 10/17/17 10:23 Dose: 100 mls/hr Insulin Human Regular (Humulin R High) 0 units SC Q4H JONNY PRN Reason: Protocol Last Admin: 10/18/17 08:00 Dose: Not Given Morphine Sulfate (Morphine) 2 mg IV Q6H PRN PRN Reason: Pain, moderate (4-7) Vitamin A (Vitamin A & D Oint Ud Foilpak) 1 ea TOP QSHIFT [facility] Last Admin: 10/17/17 23:00 Dose: 1 ea - Labs Labs: 10/18/17 06:30 10/18/17 06:30 PT 25.0 SECONDS (9.4-12.5) H 10/16/17 06:50 INR 2.14 (0.93-1.08) H 10/16/17 06:50 APTT 34.1 Seconds (25.1-36.5) 10/16/17 06:50 - Constitutional Appears: Other (intubated, sedated, poorly responsive) - Head Exam Head Exam: NORMAL INSPECTION - ENT Exam Additional comments: ET tube in place - Neck Exam Neck Exam: absent: Meningismus - Respiratory Exam Respiratory Exam: Decreased Breath Sounds - Cardiovascular Exam Cardiovascular Exam: +S1, +S2 - GI/Abdominal Exam GI & Abdominal Exam: Soft. absent: Tenderness Assessment and Plan - Assessment and Plan (Free Text) Plan: Assessment severe sepsis with VDRF and acute encephalopathy and acute on chronic renal failure due to left lower lobe HCAP methicillin-resistant Staph aureus and Kelbsiella in the sputum HTN S/P right hip replacement dementia Plan continue Merrem and Doxycycline day 7 and will discontinue intermittent IV Vancomycin since Vanco random levels are very high overall prognosis is poor and patient is for possible terminal extubation
[2017-10-18] MEDS ORDERED: Morphine 4 mg/ml ISec IVP STA (11:48)
[2017-10-18] MEDS ORDERED: Morphine PCA 1 mg/ml (30ml) 30 ML IV PRN (11:49)
[2017-10-18 12:37] VITALS: TEMP 97.7
--- NOTE | 2017-10-18 13:57 | CP.PCM.PN ---
Subjective - Date & Time of Evaluation Date of Evaluation: 10/18/17 Time of Evaluation: 10:00 - Subjective Subjective: Seen and examined at the bedside earlier today, chart reviewed. No reports of overt GI bleed. Patient remains nonverbal E responsive, May open eyes but does not make eye contact. Remains intubated. Objective - Vital Signs/Intake and Output Vital Signs (last 24 hours): Temp Pulse Resp BP Pulse Ox 97.7 F 111 H 13 84/41 L 100 10/18/17 13:45 10/18/17 12:00 10/18/17 13:45 10/18/17 13:45 10/18/17 12:00 Intake and Output: 10/18/17 10/18/17 06:59 18:59 Intake Total 155 Output Total 30 Balance 125 - Medications Medications: Current Medications Albuterol/Ipratropium (Duoneb 3 Mg/0.5 Mg (3 Ml) Ud) 3 ml IH [id number] [facility] Last Admin: 10/18/17 13:36 Dose: 3 ml Albuterol/Ipratropium (Duoneb 3 Mg/0.5 Mg (3 Ml) Ud) 3 ml IH Q2H PRN PRN Reason: Shortness of Breath Doxercalciferol (Hectorol) 1 mcg IV DAILY [facility] Last Admin: 10/17/17 10:22 Dose: 1 mcg Famotidine (Pepcid) 10 mg IVP DAILY [facility] Last Admin: 10/18/17 09:16 Dose: 10 mg Doxycycline Hyclate 100 mg/ (Sodium Chloride) 100 mls @ 100 mls/hr IVPB Q12 JONNY PRN Reason: Protocol Last Admin: 10/18/17 09:18 Dose: 100 mls/hr Meropenem 500 mg/ Sodium (Chloride) 50 mls @ 100 mls/hr IVPB DAILY JONNY PRN Reason: Protocol Last Admin: 10/18/17 09:17 Dose: 100 mls/hr Morphine Sulfate (Morphine [employer] 1 Mg/Ml) 30 mls @ 1 mls/hr IV PRN PRN; Protocol ; 1 MG/HR PRN Reason: CLINICAL ACCOUNT LIAISON PER MD ORDER Last Admin: 10/18/17 13:37 Dose: 1 mg/hr, 1 mls/hr Insulin Human Regular (Humulin R High) 0 units SC Q4H JONNY PRN Reason: Protocol Last Admin: 10/18/17 11:30 Dose: Not Given Morphine Sulfate (Morphine) 2 mg IV Q6H PRN PRN Reason: Pain, moderate (4-7) Scopolamine (Transderm-Scop) 1 patch TD Q3D [facility] Last Admin: 10/18/17 13:17 Dose: 1 patch Vitamin A (Vitamin A & D Oint Ud Foilpak) 1 ea TOP QSHIFT [facility] Last Admin: 10/18/17 09:18 Dose: 1 ea - Labs Labs: 10/18/17 06:30 10/18/17 06:30 PT 25.0 SECONDS (9.4-12.5) H 10/16/17 06:50 INR 2.14 (0.93-1.08) H 10/16/17 06:50 APTT 34.1 Seconds (25.1-36.5) 10/16/17 06:50 - Constitutional Appears: Chronically Ill - Eye Exam Eye Exam: absent: Scleral icterus - ENT Exam ENT Exam: Mucous Membranes Moist - Respiratory Exam Respiratory Exam: Rhonchi, NORMAL BREATHING PATTERN. absent: Respiratory Distress (intubated) - Cardiovascular Exam Cardiovascular Exam: +S1, +S2 - GI/Abdominal Exam GI & Abdominal Exam: Distended, Soft, Hypoactive Bowel Sounds - Extremities Exam Extremities Exam: Pedal Edema - Neurological Exam Neurological Exam: Altered - Skin Skin Exam: Dry (generalized edema), Warm Assessment and Plan - Assessment and Plan (Free Text) Assessment: Assessment: Status post respiratory failure, extubated 10/13/2017 Sepsis Anemia Acute on Chronic RF History of dementia Polypoid vascular lesion with bleeding in the rectum with hemoclips placed. Plan: Monitor H&H and for overt GI bleed on GI prophylaxis Continue DVT prophylaxis On IV antibiotics NPO on IVF No planned GI intervention. Continue current care Family plan for a terminal extubation today. Seen and discussed with Dr. Rust.
--- NOTE | 2017-10-18 14:53 | CP.CCUPN ---
<Soto Moura - Last Filed: 10/18/17 14:47> CCU Subjective - Physician Review Subjective (Free Text): Patient seen and examined at bedside intubated. ROS not obtained due to intubation and patient's advanced dementia. CCU Objective - Vital Signs / Intake & Output Vital Signs (Last 4 hours): Vital Signs Temp Pulse Resp BP Pulse Ox 10/18/17 14:00 111 H 14 87/42 L 100 10/18/17 13:45 97.7 F 13 84/41 L 10/18/17 13:43 99 H 13 84/41 L 100 10/18/17 13:00 101 H 14 80/45 L 100 10/18/17 12:00 97.7 F 111 H 17 102/47 L 98 10/18/17 11:45 176 H 26 H 10/18/17 11:00 111 H 97/48 L 95 Intake and Output (Last 8hrs): Intake & Output 10/17/17 10/18/17 10/18/17 22:59 06:59 14:59 Intake Total 200 155 Output Total 15 30 Balance 185 125 Intake: IV 200 0 Left Femoral 200 Left Hand 0 Oral 0 Tube Feeding 0 TPN/PPN 0 Blood Product 0 Lipid 0 Albumin 0 Other 155 Output: Urine 15 30 Urethral (Alexandre) 15 30 Stool 0 Urine/Stool Mix 0 Emesis 0 Oral Regurgitation 0 Other 0 Other: # Voids Urethral (Alexandre) 0 # Bowel Movements 1 1 - Physical Exam Head: Positive for: Atraumatic, Normocephalic Pupils: Positive for: PERRL Conjunctiva: Positive for: Normal Mouth: Positive for: Dry Neck: Positive for: Normal Range of Motion Respiratory/Chest: Positive for: Clear to Auscultation, Good Air Exchange. Negative for: Respiratory Distress, Accessory Muscle Use Cardiovascular: Positive for: Regular Rate and Rhythm, Normal S1, S2. Negative for: Murmurs Abdomen: Negative for: Tenderness, Distention, Peritoneal Signs Upper Extremity: Positive for: Cyanosis. Negative for: Edema Lower Extremity: Positive for: Cyanosis. Negative for: Edema Neurological: Positive for: Other (advanced dementia, intubated, ams) Skin: Positive for: Dry, Cold. Negative for: Rashes Psychiatric: Positive for: Other (AMS). Negative for: Oriented x 3 (oriented x 2) - Medications Active Medications: Active Medications Generic Name Dose Route Start Last Admin Trade Name Freq PRN Reason Stop Dose Admin Albuterol/Ipratropium 3 ml 10/10/17 23:20 Duoneb 3 Mg/0.5 Mg (3 Ml) Ud IH Q2H PRN Shortness of Breath Morphine Sulfate 30 mls @ 1 mls/hr 10/18/17 11:49 10/18/17 13:37 Morphine Tongue Binder 1 Mg/Ml IV 1 mg/hr PRN PRN 1 mls/hr ENVIRONMENTAL SERVICES FLOOR TECH PER MD ORDER Administration Protocol 1 MG/HR Morphine Sulfate 2 mg 10/16/17 10:40 Morphine IV Q6H PRN Pain, moderate (4-7) Scopolamine 1 patch 10/18/17 12:30 10/18/17 13:17 Transderm-Scop TD 1 patch Q3D JONNY Administration Vitamin A 1 ea 10/17/17 07:00 10/18/17 09:18 Vitamin A & D Oint Ud Foilpak TOP 1 ea QSHIFT [facility] Administration - Patient Studies Lab Studies: Lab Studies 10/18/17 10/18/17 10/18/17 Range/Units 11:19 09:10 07:31 WBC (4.5-11.0) 10^3/ul RBC (3.5-6.1) 10^6/uL Hgb (12.0-16.0) g/dL Hct (36.0-48.0) % MCV (80.0-105.0) fl MCH (25.0-35.0) pg MCHC (31.0-37.0) g/dl RDW (11.5-14.5) % Plt Count (120.0-450.0) 10^3/uL Gran % (50.0-68.0) % Lymph % (Auto) (22.0-35.0) % [place] % (Auto) (1.0-6.0) % Eos % (Auto) (1.5-5.0) % Baso % (Auto) (0.0-3.0) % Gran # (1.4-6.5) Lymph # (Auto) (1.2-3.4) [place] # (Auto) (0.1-0.6) Eos # (Auto) (0.0-0.7) Baso # (Auto) (0.0-2.0) K/mm3 Neutrophils % (Manual) (50.0-70.0) % Band Neutrophils % (0-2) % Lymphocytes % (Manual) (22.0-35.0) % Monocytes % (Manual) (1.0-6.0) % Nucleated RBC % % Poikilocytosis (manual Anisocytosis (manual) Microcytosis (manual) Target Cells Ovalocytes [place] Cells Sodium (132-148) mmol/L Potassium (3.6-5.0) mmol/L Chloride (98-107) mmol/L Carbon Dioxide (21-33) mmol/L Anion Gap (10-20) BUN (7-21) mg/dL Creatinine (0.7-1.2) mg/dl Est GFR ( Amer) Est GFR (Non-Af Amer) POC Glucose (mg/dL) 119 H 124 H (65-110) mg/dL Random Glucose (70-110) mg/dL Calcium (8.4-10.5) mg/dL Phosphorus (2.5-4.5) mg/dL Magnesium (1.7-2.2) mg/dL Total Bilirubin (0.2-1.3) mg/dL AST (14-36) U/L ALT (7-56) U/L Alkaline Phosphatase (38-126) U/L Total Protein (5.8-8.3) g/dL Albumin (3.0-4.8) g/dL Globulin gm/dL Albumin/Globulin Ratio (1.1-1.8) Random Vancomycin 46.7 H* (20-40) ug/mL 10/18/17 10/18/17 10/18/17 Range/Units 06:30 06:30 04:11 WBC 15.0 H (4.5-11.0) 10^3/ul RBC 2.94 L (3.5-6.1) 10^6/uL Hgb 8.1 L (12.0-16.0) g/dL Hct 23.6 L (36.0-48.0) % MCV 80.3 (80.0-105.0) fl MCH 27.6 (25.0-35.0) pg MCHC 34.3 (31.0-37.0) g/dl RDW 14.5 (11.5-14.5) % Plt Count 103 L (120.0-450.0) 10^3/uL Gran % 75.1 H (50.0-68.0) % Lymph % (Auto) 17.4 L (22.0-35.0) % [place] % (Auto) 7.3 H (1.0-6.0) % Eos % (Auto) 0.1 L (1.5-5.0) % Baso % (Auto) 0.1 (0.0-3.0) % Gran # 11.26 H (1.4-6.5) Lymph # (Auto) 2.6 (1.2-3.4) [place] # (Auto) 1.1 H (0.1-0.6) Eos # (Auto) 0.0 (0.0-0.7) Baso # (Auto) 0.02 (0.0-2.0) K/mm3 Neutrophils % (Manual) 78 H (50.0-70.0) % Band Neutrophils % 1 (0-2) % Lymphocytes % (Manual) 16 L (22.0-35.0) % Monocytes % (Manual) 5 (1.0-6.0) % Nucleated RBC % 1 % Poikilocytosis (manual 1+ Anisocytosis (manual) 1+ Microcytosis (manual) 2+ Target Cells Slight Ovalocytes Slight [place] Cells 1+ Sodium 137 (132-148) mmol/L Potassium 4.5 (3.6-5.0) mmol/L Chloride 100 (98-107) mmol/L Carbon Dioxide 19 L (21-33) mmol/L Anion Gap 24 H (10-20) BUN 147 H* (7-21) mg/dL Creatinine 5.4 H (0.7-1.2) mg/dl Est GFR ( Amer) 9 Est GFR (Non-Af Amer) 8 POC Glucose (mg/dL) 143 H (65-110) mg/dL Random Glucose 123 H (70-110) mg/dL Calcium 8.8 (8.4-10.5) mg/dL Phosphorus 10.1 H (2.5-4.5) mg/dL Magnesium 1.7 (1.7-2.2) mg/dL Total Bilirubin 5.8 H (0.2-1.3) mg/dL AST 192 H D (14-36) U/L ALT 275 H (7-56) U/L Alkaline Phosphatase 128 H (38-126) U/L Total Protein 4.8 L (5.8-8.3) g/dL Albumin 2.0 L (3.0-4.8) g/dL Globulin 2.7 gm/dL Albumin/Globulin Ratio 0.7 L (1.1-1.8) Random Vancomycin (20-40) ug/mL 10/18/17 10/17/17 10/17/17 Range/Units 00:08 19:52 16:21 WBC (4.5-11.0) 10^3/ul RBC (3.5-6.1) 10^6/uL Hgb (12.0-16.0) g/dL Hct (36.0-48.0) % MCV (80.0-105.0) fl MCH (25.0-35.0) pg MCHC (31.0-37.0) g/dl RDW (11.5-14.5) % Plt Count (120.0-450.0) 10^3/uL Gran % (50.0-68.0) % Lymph % (Auto) (22.0-35.0) % [place] % (Auto) (1.0-6.0) % Eos % (Auto) (1.5-5.0) % Baso % (Auto) (0.0-3.0) % Gran # (1.4-6.5) Lymph # (Auto) (1.2-3.4) [place] # (Auto) (0.1-0.6) Eos # (Auto) (0.0-0.7) Baso # (Auto) (0.0-2.0) K/mm3 Neutrophils % (Manual) (50.0-70.0) % Band Neutrophils % (0-2) % Lymphocytes % (Manual) (22.0-35.0) % Monocytes % (Manual) (1.0-6.0) % Nucleated RBC % % Poikilocytosis (manual Anisocytosis (manual) Microcytosis (manual) Target Cells Ovalocytes [place] Cells Sodium (132-148) mmol/L Potassium (3.6-5.0) mmol/L Chloride (98-107) mmol/L Carbon Dioxide (21-33) mmol/L Anion Gap (10-20) BUN (7-21) mg/dL Creatinine (0.7-1.2) mg/dl Est GFR ( Amer) Est GFR (Non-Af Amer) POC Glucose (mg/dL) 150 H 85 108 (65-110) mg/dL Random Glucose (70-110) mg/dL Calcium (8.4-10.5) mg/dL Phosphorus (2.5-4.5) mg/dL Magnesium (1.7-2.2) mg/dL Total Bilirubin (0.2-1.3) mg/dL AST (14-36) U/L ALT (7-56) U/L Alkaline Phosphatase (38-126) U/L Total Protein (5.8-8.3) g/dL Albumin (3.0-4.8) g/dL Globulin gm/dL Albumin/Globulin Ratio (1.1-1.8) Random Vancomycin (20-40) ug/mL 10/17/17 10/17/17 Range/Units 11:31 07:58 WBC (4.5-11.0) 10^3/ul RBC (3.5-6.1) 10^6/uL Hgb (12.0-16.0) g/dL Hct (36.0-48.0) % MCV (80.0-105.0) fl MCH (25.0-35.0) pg MCHC (31.0-37.0) g/dl RDW (11.5-14.5) % Plt Count (120.0-450.0) 10^3/uL Gran % (50.0-68.0) % Lymph % (Auto) (22.0-35.0) % [place] % (Auto) (1.0-6.0) % Eos % (Auto) (1.5-5.0) % Baso % (Auto) (0.0-3.0) % Gran # (1.4-6.5) Lymph # (Auto) (1.2-3.4) [place] # (Auto) (0.1-0.6) Eos # (Auto) (0.0-0.7) Baso # (Auto) (0.0-2.0) K/mm3 Neutrophils % (Manual) (50.0-70.0) % Band Neutrophils % (0-2) % Lymphocytes % (Manual) (22.0-35.0) % Monocytes % (Manual) (1.0-6.0) % Nucleated RBC % % Poikilocytosis (manual Anisocytosis (manual) Microcytosis (manual) Target Cells Ovalocytes [place] Cells Sodium (132-148) mmol/L Potassium (3.6-5.0) mmol/L Chloride (98-107) mmol/L Carbon Dioxide (21-33) mmol/L Anion Gap (10-20) BUN (7-21) mg/dL Creatinine (0.7-1.2) mg/dl Est GFR ( Amer) Est GFR (Non-Af Amer) POC Glucose (mg/dL) 115 H 106 (65-110) mg/dL Random Glucose (70-110) mg/dL Calcium (8.4-10.5) mg/dL Phosphorus (2.5-4.5) mg/dL Magnesium (1.7-2.2) mg/dL Total Bilirubin (0.2-1.3) mg/dL AST (14-36) U/L ALT (7-56) U/L Alkaline Phosphatase (38-126) U/L Total Protein (5.8-8.3) g/dL Albumin (3.0-4.8) g/dL Globulin gm/dL Albumin/Globulin Ratio (1.1-1.8) Random Vancomycin (20-40) ug/mL Laboratory Results - last 24 hr 10/17/17 10/17/17 10/17/17 07:58 11:31 16:21 WBC RBC Hgb Hct MCV MCH MCHC RDW Plt Count Gran % Lymph % (Auto) [place] % (Auto) Eos % (Auto) Baso % (Auto) Gran # Lymph # (Auto) [place] # (Auto) Eos # (Auto) Baso # (Auto) Neutrophils % (Manual) Band Neutrophils % Lymphocytes % (Manual) Monocytes % (Manual) Nucleated RBC % Poikilocytosis (manual Anisocytosis (manual) Microcytosis (manual) Target Cells Ovalocytes [place] Cells Sodium Potassium Chloride Carbon Dioxide Anion Gap BUN Creatinine Est GFR ( Amer) Est GFR (Non-Af Amer) POC Glucose (mg/dL) 106 115 H 108 Random Glucose Calcium Phosphorus Magnesium Total Bilirubin AST ALT Alkaline Phosphatase Total Protein Albumin Globulin Albumin/Globulin Ratio Random Vancomycin 10/17/17 10/18/17 10/18/17 19:52 00:08 04:11 WBC RBC Hgb Hct MCV MCH MCHC RDW Plt Count Gran % Lymph % (Auto) [place] % (Auto) Eos % (Auto) Baso % (Auto) Gran # Lymph # (Auto) [place] # (Auto) Eos # (Auto) Baso # (Auto) Neutrophils % (Manual) Band Neutrophils % Lymphocytes % (Manual) Monocytes % (Manual) Nucleated RBC % Poikilocytosis (manual Anisocytosis (manual) Microcytosis (manual) Target Cells Ovalocytes [place] Cells Sodium Potassium Chloride Carbon Dioxide Anion Gap BUN Creatinine Est GFR ( Amer) Est GFR (Non-Af Amer) POC Glucose (mg/dL) 85 150 H 143 H Random Glucose Calcium Phosphorus Magnesium Total Bilirubin AST ALT Alkaline Phosphatase Total Protein Albumin Globulin Albumin/Globulin Ratio Random Vancomycin 10/18/17 10/18/17 10/18/17 06:30 06:30 07:31 WBC 15.0 H RBC 2.94 L Hgb 8.1 L Hct 23.6 L MCV 80.3 MCH 27.6 MCHC 34.3 RDW 14.5 Plt Count 103 L Gran % 75.1 H Lymph % (Auto) 17.[address] [place] % (Auto) 7.3 H Eos % (Auto) 0.1 L Baso % (Auto) 0.1 Gran # 11.26 H Lymph # (Auto) 2.6 [place] # (Auto) 1.1 H Eos # (Auto) 0.0 Baso # (Auto) 0.02 Neutrophils % (Manual) 78 H Band Neutrophils % 1 Lymphocytes % (Manual) 16 L Monocytes % (Manual) 5 Nucleated RBC % 1 Poikilocytosis (manual 1+ Anisocytosis (manual) 1+ Microcytosis (manual) 2+ Target Cells Slight Ovalocytes Slight [place] Cells 1+ Sodium 137 Potassium 4.5 Chloride 100 Carbon Dioxide 19 L Anion Gap 24 H BUN 147 H* Creatinine 5.4 H Est GFR ( Amer) 9 Est GFR (Non-Af Amer) 8 POC Glucose (mg/dL) 124 H Random Glucose 123 H Calcium 8.8 Phosphorus 10.1 H Magnesium 1.7 Total Bilirubin 5.8 H AST 192 H D ALT 275 H Alkaline Phosphatase 128 H Total Protein 4.8 L Albumin 2.0 L Globulin 2.7 Albumin/Globulin Ratio 0.7 L Random Vancomycin 10/18/17 10/18/17 09:10 11:19 WBC RBC Hgb Hct MCV MCH MCHC RDW Plt Count Gran % Lymph % (Auto) [place] % (Auto) Eos % (Auto) Baso % (Auto) Gran # Lymph # (Auto) [place] # (Auto) Eos # (Auto) Baso # (Auto) Neutrophils % (Manual) Band Neutrophils % Lymphocytes % (Manual) Monocytes % (Manual) Nucleated RBC % Poikilocytosis (manual Anisocytosis (manual) Microcytosis (manual) Target Cells Ovalocytes [place] Cells Sodium Potassium Chloride Carbon Dioxide Anion Gap BUN Creatinine Est GFR ( Amer) Est GFR (Non-Af Amer) POC Glucose (mg/dL) 119 H Random Glucose Calcium Phosphorus Magnesium Total Bilirubin AST ALT Alkaline Phosphatase Total Protein Albumin Globulin Albumin/Globulin Ratio Random Vancomycin 46.7 H* Fingerstick Blood Sugar Results: 119 Review of Systems - Review of Systems Systems not reviewed;Unavailable: Altered Mental Status Assessment/Plan - Assessment and Plan (Free Text) Assessment: Assessment 77 year old fmeale with a history of hypertension and advanced dementia presenting with septic shock secondary to bilateral community acquired pneumonia s/p cardiac arrest with associated multi organ system failure. Plan -Patient made DNR/DNI -Terminal extubation -Comfort care provided as per palliatve team; morphine drip, scopolamine patch -Hospice care <Marcell Matias - Last Filed: 10/18/17 15:32> CCU Objective - Vital Signs / Intake & Output Vital Signs (Last 4 hours): Vital Signs Temp Pulse Resp BP Pulse Ox 10/18/17 14:00 111 H 14 87/42 L 100 10/18/17 13:45 97.7 F 13 84/41 L 10/18/17 13:43 99 H 13 84/41 L 100 10/18/17 13:00 101 H 14 80/45 L 100 10/18/17 12:00 97.7 F 111 H 17 102/47 L 98 10/18/17 11:45 176 H 26 H Intake and Output (Last 8hrs): Intake & Output 10/18/17 10/18/17 10/18/17 06:59 14:59 22:59 Intake Total 155 Output Total 30 Balance 125 Intake: IV 0 Left Hand 0 Oral 0 Tube Feeding 0 TPN/PPN 0 Blood Product 0 Lipid 0 Albumin 0 Other 155 Output: Urine 30 Urethral (Alexandre) 30 Stool 0 Urine/Stool Mix 0 Emesis 0 Oral Regurgitation 0 Other 0 Other: # Voids Urethral (Alexandre) 0 # Bowel Movements 1 - Medications Active Medications: Active Medications Generic Name Dose Route Start Last Admin Trade Name Freq PRN Reason Stop Dose Admin Albuterol/Ipratropium 3 ml 10/10/17 23:20 Duoneb 3 Mg/0.5 Mg (3 Ml) Ud IH Q2H PRN Shortness of Breath Morphine Sulfate 30 mls @ 1 mls/hr 10/18/17 11:49 10/18/17 13:37 Morphine Tongue Binder 1 Mg/Ml IV 1 mg/hr PRN PRN 1 mls/hr ENVIRONMENTAL SERVICES FLOOR TECH PER MD ORDER Administration Protocol 1 MG/HR Morphine Sulfate 2 mg 10/16/17 10:40 Morphine IV Q6H PRN Pain, moderate (4-7) Scopolamine 1 patch 10/18/17 12:30 10/18/17 13:17 Transderm-Scop TD 1 patch Q3D [facility] Administration Vitamin A 1 ea 10/17/17 07:00 10/18/17 09:18 Vitamin A & D Oint Ud Foilpak TOP 1 ea QSHIFT [facility] Administration - Patient Studies Lab Studies: Lab Studies 10/18/17 10/18/17 10/18/17 Range/Units 11:19 09:10 07:31 WBC (4.5-11.0) 10^3/ul RBC (3.5-6.1) 10^6/uL Hgb (12.0-16.0) g/dL Hct (36.0-48.0) % MCV (80.0-105.0) fl MCH (25.0-35.0) pg MCHC (31.0-37.0) g/dl RDW (11.5-14.5) % Plt Count (120.0-450.0) 10^3/uL Gran % (50.0-68.0) % Lymph % (Auto) (22.0-35.0) % [place] % (Auto) (1.0-6.0) % Eos % (Auto) (1.5-5.0) % Baso % (Auto) (0.0-3.0) % Gran # (1.4-6.5) Lymph # (Auto) (1.2-3.4) [place] # (Auto) (0.1-0.6) Eos # (Auto) (0.0-0.7) Baso # (Auto) (0.0-2.0) K/mm3 Neutrophils % (Manual) (50.0-70.0) % Band Neutrophils % (0-2) % Lymphocytes % (Manual) (22.0-35.0) % Monocytes % (Manual) (1.0-6.0) % Nucleated RBC % % Poikilocytosis (manual Anisocytosis (manual) Microcytosis (manual) Target Cells Ovalocytes [place] Cells Sodium (132-148) mmol/L Potassium (3.6-5.0) mmol/L Chloride (98-107) mmol/L Carbon Dioxide (21-33) mmol/L Anion Gap (10-20) BUN (7-21) mg/dL Creatinine (0.7-1.2) mg/dl Est GFR ( Amer) Est GFR (Non-Af Amer) POC Glucose (mg/dL) 119 H 124 H (65-110) mg/dL Random Glucose (70-110) mg/dL Calcium (8.4-10.5) mg/dL Phosphorus (2.5-4.5) mg/dL Magnesium (1.7-2.2) mg/dL Total Bilirubin (0.2-1.3) mg/dL AST (14-36) U/L ALT (7-56) U/L Alkaline Phosphatase (38-126) U/L Total Protein (5.8-8.3) g/dL Albumin (3.0-4.8) g/dL Globulin gm/dL Albumin/Globulin Ratio (1.1-1.8) Random Vancomycin 46.7 H* (20-40) ug/mL 10/18/17 10/18/17 10/18/17 Range/Units 06:30 06:30 04:11 WBC 15.0 H (4.5-11.0) 10^3/ul RBC 2.94 L (3.5-6.1) 10^6/uL Hgb 8.1 L (12.0-16.0) g/dL Hct 23.6 L (36.0-48.0) % MCV 80.3 (80.0-105.0) fl MCH 27.6 (25.0-35.0) pg MCHC 34.3 (31.0-37.0) g/dl RDW 14.5 (11.5-14.5) % Plt Count 103 L (120.0-450.0) 10^3/uL Gran % 75.1 H (50.0-68.0) % Lymph % (Auto) 17.4 L (22.0-35.0) % [place] % (Auto) 7.3 H (1.0-6.0) % Eos % (Auto) 0.1 L (1.5-5.0) % Baso % (Auto) 0.1 (0.0-3.0) % Gran # 11.26 H (1.4-6.5) Lymph # (Auto) 2.6 (1.2-3.4) [place] # (Auto) 1.1 H (0.1-0.6) Eos # (Auto) 0.0 (0.0-0.7) Baso # (Auto) 0.02 (0.0-2.0) K/mm3 Neutrophils % (Manual) 78 H (50.0-70.0) % Band Neutrophils % 1 (0-2) % Lymphocytes % (Manual) 16 L (22.0-35.0) % Monocytes % (Manual) 5 (1.0-6.0) % Nucleated RBC % 1 % Poikilocytosis (manual 1+ Anisocytosis (manual) 1+ Microcytosis (manual) 2+ Target Cells Slight Ovalocytes Slight [place] Cells 1+ Sodium 137 (132-148) mmol/L Potassium 4.5 (3.6-5.0) mmol/L Chloride 100 (98-107) mmol/L Carbon Dioxide 19 L (21-33) mmol/L Anion Gap 24 H (10-20) BUN 147 H* (7-21) mg/dL Creatinine 5.4 H (0.7-1.2) mg/dl Est GFR ( Amer) 9 Est GFR (Non-Af Amer) 8 POC Glucose (mg/dL) 143 H (65-110) mg/dL Random Glucose 123 H (70-110) mg/dL Calcium 8.8 (8.4-10.5) mg/dL Phosphorus 10.1 H (2.5-4.5) mg/dL Magnesium 1.7 (1.7-2.2) mg/dL Total Bilirubin 5.8 H (0.2-1.3) mg/dL AST 192 H D (14-36) U/L ALT 275 H (7-56) U/L Alkaline Phosphatase 128 H (38-126) U/L Total Protein 4.8 L (5.8-8.3) g/dL Albumin 2.0 L (3.0-4.8) g/dL Globulin 2.7 gm/dL Albumin/Globulin Ratio 0.7 L (1.1-1.8) Random Vancomycin (20-40) ug/mL 10/18/17 10/17/17 10/17/17 Range/Units 00:08 19:52 16:21 WBC (4.5-11.0) 10^3/ul RBC (3.5-6.1) 10^6/uL Hgb (12.0-16.0) g/dL Hct (36.0-48.0) % MCV (80.0-105.0) fl MCH (25.0-35.0) pg MCHC (31.0-37.0) g/dl RDW (11.5-14.5) % Plt Count (120.0-450.0) 10^3/uL Gran % (50.0-68.0) % Lymph % (Auto) (22.0-35.0) % [place] % (Auto) (1.0-6.0) % Eos % (Auto) (1.5-5.0) % Baso % (Auto) (0.0-3.0) % Gran # (1.4-6.5) Lymph # (Auto) (1.2-3.4) [place] # (Auto) (0.1-0.6) Eos # (Auto) (0.0-0.7) Baso # (Auto) (0.0-2.0) K/mm3 Neutrophils % (Manual) (50.0-70.0) % Band Neutrophils % (0-2) % Lymphocytes % (Manual) (22.0-35.0) % Monocytes % (Manual) (1.0-6.0) % Nucleated RBC % % Poikilocytosis (manual Anisocytosis (manual) Microcytosis (manual) Target Cells Ovalocytes [place] Cells Sodium (132-148) mmol/L Potassium (3.6-5.0) mmol/L Chloride (98-107) mmol/L Carbon Dioxide (21-33) mmol/L Anion Gap (10-20) BUN (7-21) mg/dL Creatinine (0.7-1.2) mg/dl Est GFR ( Amer) Est GFR (Non-Af Amer) POC Glucose (mg/dL) 150 H 85 108 (65-110) mg/dL Random Glucose (70-110) mg/dL Calcium (8.4-10.5) mg/dL Phosphorus (2.5-4.5) mg/dL Magnesium (1.7-2.2) mg/dL Total Bilirubin (0.2-1.3) mg/dL AST (14-36) U/L ALT (7-56) U/L Alkaline Phosphatase (38-126) U/L Total Protein (5.8-8.3) g/dL Albumin (3.0-4.8) g/dL Globulin gm/dL Albumin/Globulin Ratio (1.1-1.8) Random Vancomycin (20-40) ug/mL 10/17/17 10/17/17 Range/Units 11:31 07:58 WBC (4.5-11.0) 10^3/ul RBC (3.5-6.1) 10^6/uL Hgb (12.0-16.0) g/dL Hct (36.0-48.0) % MCV (80.0-105.0) fl MCH (25.0-35.0) pg MCHC (31.0-37.0) g/dl RDW (11.5-14.5) % Plt Count (120.0-450.0) 10^3/uL Gran % (50.0-68.0) % Lymph % (Auto) (22.0-35.0) % [place] % (Auto) (1.0-6.0) % Eos % (Auto) (1.5-5.0) % Baso % (Auto) (0.0-3.0) % Gran # (1.4-6.5) Lymph # (Auto) (1.2-3.4) [place] # (Auto) (0.1-0.6) Eos # (Auto) (0.0-0.7) Baso # (Auto) (0.0-2.0) K/mm3 Neutrophils % (Manual) (50.0-70.0) % Band Neutrophils % (0-2) % Lymphocytes % (Manual) (22.0-35.0) % Monocytes % (Manual) (1.0-6.0) % Nucleated RBC % % Poikilocytosis (manual Anisocytosis (manual) Microcytosis (manual) Target Cells Ovalocytes [place] Cells Sodium (132-148) mmol/L Potassium (3.6-5.0) mmol/L Chloride (98-107) mmol/L Carbon Dioxide (21-33) mmol/L Anion Gap (10-20) BUN (7-21) mg/dL Creatinine (0.7-1.2) mg/dl Est GFR ( Amer) Est GFR (Non-Af Amer) POC Glucose (mg/dL) 115 H 106 (65-110) mg/dL Random Glucose (70-110) mg/dL Calcium (8.4-10.5) mg/dL Phosphorus (2.5-4.5) mg/dL Magnesium (1.7-2.2) mg/dL Total Bilirubin (0.2-1.3) mg/dL AST (14-36) U/L ALT (7-56) U/L Alkaline Phosphatase (38-126) U/L Total Protein (5.8-8.3) g/dL Albumin (3.0-4.8) g/dL Globulin gm/dL Albumin/Globulin Ratio (1.1-1.8) Random Vancomycin (20-40) ug/mL Laboratory Results - last 24 hr 10/17/17 10/17/17 10/17/17 07:58 11:31 16:21 WBC RBC Hgb Hct MCV MCH MCHC RDW Plt Count Gran % Lymph % (Auto) [place] % (Auto) Eos % (Auto) Baso % (Auto) Gran # Lymph # (Auto) [place] # (Auto) Eos # (Auto) Baso # (Auto) Neutrophils % (Manual) Band Neutrophils % Lymphocytes % (Manual) Monocytes % (Manual) Nucleated RBC % Poikilocytosis (manual Anisocytosis (manual) Microcytosis (manual) Target Cells Ovalocytes [place] Cells Sodium Potassium Chloride Carbon Dioxide Anion Gap BUN Creatinine Est GFR ( Amer) Est GFR (Non-Af Amer) POC Glucose (mg/dL) 106 115 H 108 Random Glucose Calcium Phosphorus Magnesium Total Bilirubin AST ALT Alkaline Phosphatase Total Protein Albumin Globulin Albumin/Globulin Ratio Random Vancomycin 10/17/17 10/18/17 10/18/17 19:52 00:08 04:11 WBC RBC Hgb Hct MCV MCH MCHC RDW Plt Count Gran % Lymph % (Auto) [place] % (Auto) Eos % (Auto) Baso % (Auto) Gran # Lymph # (Auto) [place] # (Auto) Eos # (Auto) Baso # (Auto) Neutrophils % (Manual) Band Neutrophils % Lymphocytes % (Manual) Monocytes % (Manual) Nucleated RBC % Poikilocytosis (manual Anisocytosis (manual) Microcytosis (manual) Target Cells Ovalocytes [place] Cells Sodium Potassium Chloride Carbon Dioxide Anion Gap BUN Creatinine Est GFR ( Amer) Est GFR (Non-Af Amer) POC Glucose (mg/dL) 85 150 H 143 H Random Glucose Calcium Phosphorus Magnesium Total Bilirubin AST ALT Alkaline Phosphatase Total Protein Albumin Globulin Albumin/Globulin Ratio Random Vancomycin 10/18/17 10/18/17 10/18/17 06:30 06:30 07:31 WBC 15.0 H RBC 2.94 L Hgb 8.1 L Hct 23.6 L MCV 80.3 MCH 27.6 MCHC 34.3 RDW 14.5 Plt Count 103 L Gran % 75.1 H Lymph % (Auto) 17.[address] [place] % (Auto) 7.3 H Eos % (Auto) 0.1 L Baso % (Auto) 0.1 Gran # 11.26 H Lymph # (Auto) 2.6 [place] # (Auto) 1.1 H Eos # (Auto) 0.0 Baso # (Auto) 0.02 Neutrophils % (Manual) 78 H Band Neutrophils % 1 Lymphocytes % (Manual) 16 L Monocytes % (Manual) 5 Nucleated RBC % 1 Poikilocytosis (manual 1+ Anisocytosis (manual) 1+ Microcytosis (manual) 2+ Target Cells Slight Ovalocytes Slight [place] Cells 1+ Sodium 137 Potassium 4.5 Chloride 100 Carbon Dioxide 19 L Anion Gap 24 H BUN 147 H* Creatinine 5.4 H Est GFR ( Amer) 9 Est GFR (Non-Af Amer) 8 POC Glucose (mg/dL) 124 H Random Glucose 123 H Calcium 8.8 Phosphorus 10.1 H Magnesium 1.7 Total Bilirubin 5.8 H AST 192 H D ALT 275 H Alkaline Phosphatase 128 H Total Protein 4.8 L Albumin 2.0 L Globulin 2.7 Albumin/Globulin Ratio 0.7 L Random Vancomycin 10/18/17 10/18/17 09:10 11:19 WBC RBC Hgb Hct MCV MCH MCHC RDW Plt Count Gran % Lymph % (Auto) [place] % (Auto) Eos % (Auto) Baso % (Auto) Gran # Lymph # (Auto) [place] # (Auto) Eos # (Auto) Baso # (Auto) Neutrophils % (Manual) Band Neutrophils % Lymphocytes % (Manual) Monocytes % (Manual) Nucleated RBC % Poikilocytosis (manual Anisocytosis (manual) Microcytosis (manual) Target Cells Ovalocytes [place] Cells Sodium Potassium Chloride Carbon Dioxide Anion Gap BUN Creatinine Est GFR ( Amer) Est GFR (Non-Af Amer) POC Glucose (mg/dL) 119 H Random Glucose Calcium Phosphorus Magnesium Total Bilirubin AST ALT Alkaline Phosphatase Total Protein Albumin Globulin Albumin/Globulin Ratio Random Vancomycin 46.7 H* Attending/Attestation - Attestation I have personally seen and examined this patient.: Yes I have fully participated in the care of the patient.: Yes I have reviewed all pertinent clinical information: Yes Notes (Text): 10/18/17 15:31 as per family wishes, trminal extubation with transition to comfort care/hospice ccm time 40 min
--- NOTE | 2017-10-18 15:45 | CP.PCM.PN ---
Subjective - Date & Time of Evaluation Date of Evaluation: 10/18/17 Time of Evaluation: 12:00 - Subjective Subjective: Occasionally opens eyes, unable to follow command Objective - Vital Signs/Intake and Output Vital Signs (last 24 hours): Temp Pulse Resp BP Pulse Ox 97.7 F 101 H 14 87/42 L 100 10/18/17 13:45 10/18/17 14:00 10/18/17 14:00 10/18/17 14:00 10/18/17 14:00 Intake and Output: 10/18/17 10/18/17 06:59 18:59 Intake Total 155 Output Total 30 Balance 125 - Medications Medications: Current Medications Albuterol/Ipratropium (Duoneb 3 Mg/0.5 Mg (3 Ml) Ud) 3 ml IH Q2H PRN PRN Reason: Shortness of Breath Morphine Sulfate (Morphine Pecan Grower 1 Mg/Ml) 30 mls @ 1 mls/hr IV PRN PRN; Protocol ; 1 MG/HR 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 Last Admin: 10/18/17 13:37 Dose: 1 mg/hr, 1 mls/hr Scopolamine (Transderm-Scop) 1 patch TD Q3D [facility] [place] Last Admin: 10/18/17 13:17 Dose: 1 patch Vitamin A (Vitamin A & D Oint Ud Foilpak) 1 ea TOP QSHIFT [facility] [place] Last Admin: 10/18/17 09:18 Dose: 1 ea - Labs Labs: 10/18/17 06:30 10/18/17 06:30 PT 25.0 SECONDS (9.4-12.5) H 10/16/17 06:50 INR 2.14 (0.93-1.08) H 10/16/17 06:50 APTT 34.1 Seconds (25.1-36.5) 10/16/17 06:50 - Constitutional Appears: Chronically Ill - Head Exam Head Exam: NORMOCEPHALIC - Eye Exam Eye Exam: Normal appearance, PERRL - ENT Exam ENT Exam: Mucous Membranes Moist - Neck Exam Neck Exam: Normal Inspection - Respiratory Exam Respiratory Exam: Decreased Breath Sounds, NORMAL BREATHING PATTERN - Cardiovascular Exam Cardiovascular Exam: REGULAR RHYTHM, +S1, +S2 - GI/Abdominal Exam GI & Abdominal Exam: Soft, Diminished Bowel Sounds - Extremities Exam Extremities Exam: Pedal Edema Additional comments: both lower extremities cyanotic - Neurological Exam Neurological Exam: Altered - Skin Skin Exam: Dry, Warm Assessment and Plan - Assessment and Plan (Free Text) Assessment: 77 year old female with history of dementia, DM, CKD who was admitted with sepsis, H Flu, respiratory failure, OSWALDO Family at bedside. Family ready to proceed with terminal extubation. Family aware that patients prognosis is poor and that she is not likely to survive. Family requesting comfort measures only. Hospice services explained in detail. Questions answered.Family agreeable to hospice care [facility] maori liaison adviser met with family, consent signed for [facility] hospice care Time spent with family in goals of care and end of life discussion, 45 minutes Plan: DNR/DNI Terminal extubation Hospice evaluation for [facility] services r
[2017-10-18 16:21] VITALS: BP 133/74; PULSE 107; O2SAT 98
[2017-10-18 16:22] VITALS: RESP 15
--- NOTE | 2017-10-19 02:33 | PN ---
DATE: 10/18/2017 SUBJECTIVE: The patient is seen lying in bed. She was just extubated. She does not appear to be in any kind of distress. PHYSICAL EXAMINATION: GENERAL: Elderly lady lying in bed in the ICU. VITAL SIGNS: Blood pressure 84/41, heart rate 107, respiratory rate 18-20, temperature 97.7. HEENT: Normocephalic, atraumatic, positive pallor, positive icterus, pupils sluggish. NECK: Supple, no JVD. LUNGS: Bilateral equal air entry, bilateral rhonchi. CARDIAC: S1 and S2, regular rate and rhythm, no murmur, no rub. ABDOMEN: Obese, distended, soft, nontender, bowel sounds present. EXTREMITIES: A 3+ pitting edema of the lower extremities. INTAKE AND OUTPUT: Not charted. LABORATORY DATA: WBC 15, hemoglobin 8, hematocrit 23.6, platelets 103. Sodium 137, potassium 4.5, chloride 100, CO2 of 19, BUN 147, creatinine 5.4, glucose 123, calcium 8.8, phosphorus , magnesium 1.7. AST 192, ALT 275, albumin 2. MEDICATIONS: Doxycycline, DuoNeb, Hectorol, meropenem, morphine, and Pepcid. ASSESSMENT: 1. Septic shock. 2. Multiorgan dysfunction syndrome. 3. Respiratory failure. 4. Altered mental status/encephalopathy. 5. Acute kidney injury superimposed on chronic kidney disease stage 3. 6. Anion gap metabolic acidosis. 7. Grim prognosis. PLAN: The patient is DNR/DNI. Family has decided to make her hospice. She was just extubated. At this time, comfort care is needed. No plans for renal replacement therapy. We will discontinue followup. Brittanie Turk MD
== END 2017-10-18 15:35 | disposition hospice, inpatient (51) | DRG 871 ==
LOC: ED 15:21 → ERH 17:36 → ICU 22:05
PROVIDERS: ADMIT Internal Medicine; ATTEND Internal Medicine
PROC: 5A1945Z Respiratory Ventilation, 24-96 Consecutive Hours (ICD-10-PCS; principal; 2017-10-11)
PROC: 0BH17EZ Insertion of Endotracheal Airway into Trachea, Via Natural or Artificial Opening (ICD-10-PCS; 2017-10-11)
PROC: 06HY33Z Insertion of Infusion Device into Lower Vein, Percutaneous Approach (ICD-10-PCS; 2017-10-11)
PROC: 5A1945Z Respiratory Ventilation, 24-96 Consecutive Hours (ICD-10-PCS; 2017-10-15)
PROC: 0BH17EZ Insertion of Endotracheal Airway into Trachea, Via Natural or Artificial Opening (ICD-10-PCS; 2017-10-15)
DX: A41.9 Sepsis, unspecified organism (principal); E11.01 Type 2 diabetes mellitus with hyperosmolarity with coma; R65.21 Severe sepsis with septic shock; K72.00 Acute and subacute hepatic failure without coma; J15.212 Pneumonia due to Methicillin resistant Staphylococcus aureus; J15.0 Pneumonia due to Klebsiella pneumoniae; N17.0 Acute kidney failure with tubular necrosis; D65 Disseminated intravascular coagulation [defibrination syndrome]; J96.01 Acute respiratory failure with hypoxia; R64 Cachexia; E46 Unspecified protein-calorie malnutrition; K92.2 Gastrointestinal hemorrhage, unspecified; N25.81 Secondary hyperparathyroidism of renal origin; B37.49 Other urogenital candidiasis; D61.818 Other pancytopenia; K59.00 Constipation, unspecified; E86.0 Dehydration; E87.5 Hyperkalemia; E83.51 Hypocalcemia; I12.9 Hypertensive chronic kidney disease with stage 1 through stage 4 chronic kidney disease, or unspecified chronic kidney disease; E11.22 Type 2 diabetes mellitus with diabetic chronic kidney disease; N18.3 Chronic kidney disease, stage 3 (moderate); F03.90 Unspecified dementia, unspecified severity, without behavioral disturbance, psychotic disturbance, mood disturbance, and anxiety; Y95 Nosocomial condition; Z66 Do not resuscitate; Z51.5 Encounter for palliative care; Z96.641 Presence of right artificial hip joint; B19.20 Unspecified viral hepatitis C without hepatic coma; I48.91 Unspecified atrial fibrillation; M81.0 Age-related osteoporosis without current pathological fracture; Z78.1 Physical restraint status

== ENCOUNTER 2017-10-18 15:35 | Inpatient (IN) | payer OTHER ==
[2017-10-18] MEDS ORDERED: Morphine PCA 1 mg/ml (30ml) 30 ML IV PRN (16:45)
--- NOTE | 2017-10-18 23:26 | CP.PCM.PN ---
Subjective - Date & Time of Evaluation Date of Evaluation: 10/18/17 Time of Evaluation: 23:23 - Subjective Subjective: pt with no respons no pulse no bp , not breathing ,pt was hospice at 11 20 pm. 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 pmd informed . family informed by pmd. case #[id number]
[2017-10-18 23:34] VITALS: BP 87/42; PULSE 107; RESP 14; TEMP 97.7; BMI 24.0
[2017-10-18] MEDS ORDERED: Pneumococcal 23-Valent Vaccine IM ONE (23:34)
--- NOTE | 2017-10-19 16:31 | DS ---
HISTORY OF PRESENT ILLNESS: Patient is a 77 years old who was transferred from [facility] after she was found to be short of breath and was desaturated. She was hyponatremic. She has multilobar pneumonia. She was resuscitated with fluid. She was also hyperglycemic, was given insulin coverage and was on triple antibiotic. Initially, we contacted the family, they did not want to make her DNR, so she end up getting intubated. During this time, she also developed upper GI bleed. She was started on IV Protonix. Patient's electrolytes were corrected, but she is in acute renal failure. Family was regularly updated for her problems. So they decided to make her DNR and they asked for hospice care. So, she is discharged to hospice care today. DISCHARGE DIAGNOSES: 1. Multilobar pneumonia. 2. Respiratory failure. 3. Advanced dementia. 4. Upper gastrointestinal bleed. 5. Anemia. 6. Acute renal failure. We will follow up. Davon Marie MD
--- NOTE | 2017-10-20 07:01 | DS ---
HISTORY OF PRESENT ILLNESS: Patient is 77-year-old [facility] resident, started to develop shortness of breath. She was brought to emergency room, was found to be hyponatremic with multilobar pneumonia, was coded and intubated, remained on vent. Family decided to make her DNR. She was extubated yesterday and was placed on hospice care and patient this morning. DISCHARGE DIAGNOSES: 1. Respiratory failure. 2. Multilobar pneumonia. 3. History of gastrointestinal bleed. 4. Chronic anemia. 5. Dementia. Davon Marie MD
== END 2017-10-19 00:25 | DRG 193 ==
LOC: 5RNO 15:35
PROVIDERS: ADMIT Internal Medicine; ATTEND Internal Medicine
DX: J18.9 Pneumonia, unspecified organism (principal); J96.90 Respiratory failure, unspecified, unspecified whether with hypoxia or hypercapnia; E87.1 Hypo-osmolality and hyponatremia; K92.2 Gastrointestinal hemorrhage, unspecified; N17.9 Acute kidney failure, unspecified; Z51.5 Encounter for palliative care; Z66 Do not resuscitate; F03.90 Unspecified dementia, unspecified severity, without behavioral disturbance, psychotic disturbance, mood disturbance, and anxiety; D64.9 Anemia, unspecified